=== PATIENT | male | born 1955 | race Caucasian/White ===

== ENCOUNTER 2019-09-04 11:05 | Inpatient (IN) | payer MEDICARE, SELFPAY ==
[2019-09-04 11:06] VITALS: BP 100/68; PULSE 121; RESP 18; TEMP 36.3; O2SAT 96; BMI 32.1
[2019-09-04 11:14] VITALS: O2SAT 96
[2019-09-04] MEDS: ondansetron 2 mg/ML SDV 2 mL 4 MG IVP (11:20)
[2019-09-04] MEDS: sodium chloride 0.9% 1,000 ML 100 ML IV (11:20)
--- NOTE | 2019-09-04 11:20 | ED_ITS ---
Entered by Carla Orozco, acting as scribe for Griffin Shin DO HPI - Abdominal Pain General: Chief Complaint: Abdominal Pain Stated Complaint: n/v/d Time Seen by Provider: 09/04/19 11:20 Source: patient, EMS and RN notes reviewed Mode of arrival: EMS Limitations: no limitations History of Present Illness: HPI narrative: 64 yo male presents to ED with complaints of abdominal pain. He said the pain began at 0300 this morning. He has had nausea, vomiting and diarrhea. He said his abdominal pain is due to his dry heaves. MD elicited complaint: abdominal pain Pertinent past history: none Onset (ago): hour(s) (9) Pain Consistency: constant Location: Diffuse Severity: moderate Quality: aching Radiation: none Migration to: no migration Exacerbating factors: vomiting and movement Relieving factors: nothing Associated Symptoms: Reports diarrhea, nausea and vomiting; Denies chills, dysuria, fever(s), hematuria and syncope Review of Systems Const: Denies: fever, chills, body aches, fatigue, malaise or night sweats Eyes: Denies: change in vision or blurry vision ENMT: Denies: throat pain, oral sores/lesions, dental pain, nasal discharge or nasal congestion Card: Denies: chest pain, palpitations, irregular heart rhythm, edema, syncope, shortness of breath on exertion, shortness of breath when lying down or leg pain with exertion Resp: Denies: shortness of breath, productive cough, non-productive cough or wheezing GI: Reports: nausea, vomiting and diarrhea : Denies: flank pain, difficulty urinating, painful urination, urinary f requency, urinary urgency, urinary incontinence or blood in urine Musc: Denies: neck pain, back pain, extremity pain, extremity swelling, joint pain or joint swelling Skin/Breast: Denies: rash, itching or redness Neuro: Denies: headache, numbness in extremities, weakness in extremities, changes in sensation, lack of coordination, difficulty walking, frequent falls, dizziness, vertigo or confusion Psych: Denies: anxiety, depression, loss of interest, visual hallucinations, auditory hallucinations, suicidal ideation or homicidal ideation Endo: Denies: excessive urination, excessive thirst, tired all the time or cold intolerance Panfilo/Lymph: Denies: easy bruising, easy bleeding, petechiae, enlarged lymph nodes or tender lymph nodes PFSH ED PFSH: Statuses (acute, chronic, etc) shown below reflect problem list status as previously entered and may not be historically accurate Medical History Atrial fibrillation (Acute) Hypertension (Acute) Intestinal malrotation (Acute) Surgical History History of bariatric surgery (Acute) Gastric sleeve ([place]) History of left knee surgery (Acute) History of right hip replacement (Acute) History of ventral hernia repair (Acute) x 2, supraumbilical, second time with mesh Social History Smoking and tobacco status: never smoked Alcohol intake: current Alcohol use comment: I used to drink more but it is now more off than on Counseling given: Yes Household members: spouse Housing: House Physical Exam Const: COMMON NORMALS: no apparent distress GENERAL APPEARANCE: cooperative and comfortable ORIENTATION/CONSCIOUSNESS: Yes awake, Yes oriented to person, Yes oriented to place and Yes oriented to time HENMT: COMMON NORMALS: normocephalic, head/scalp atraumatic, hearing grossly normal bilaterally, external ears normal, EAC's normal, TM's normal bilaterally, nasal mucous membranes and turbinates normal, moist oral mucous membranes and oropharynx normal HEAD & SCALP: normocephalic and atraumatic NOSE: nasal mucous membranes and turbinates normal EXTERNAL EAR: Yes external ears normal EXTERNAL AUDITORY CANAL: EAC's normal TYMPANIC MEMBRANE: TM's normal bilaterally Eye: COMMON NORMALS: PERRL, EOMs intact bilaterally, conjunctivae normal and no scleral icterus CONJUNCTIVA: Yes conjunctivae normal PUPIL: Yes PERRL Neck/C-Spine: COMMON NORMALS: full ROM, no lymphadenopathy, supple and no JVD Lymph: LYMPHATIC: no lymphadenopathy noted and no lymphedema noted Resp: COMMON NORMALS: normal respiratory effort, no retractions, no use of accessory muscles and clear to auscultation bilaterally AUSCULTATION: clear to auscultation bilaterally Cardio: COMMON NORMALS: no JVD, regular rate, regular rhythm and no murmurs RATE: regular rate RHYTHM: regular rhythm GI: COMMON NORMALS: no hepatosplenomegaly AUSCULTATION: Yes hypoactive bowel sounds PALPATION: Yes tender, No guarding and Yes no hepatosplenomegaly PERCUSSION: tympanic to percussion Extremity: COMMON NORMALS: normal to inspection, normal capillary refill, no clubbing, cyanosis or edema, no calf tenderness and no pedal edema Neuro: SENSORIUM/ORIENTATION: Yes oriented to person, Yes oriented to place and Yes oriented to time Skin: COMMON NORMALS: no rashes or lesions noted GENERAL SKIN EXAM: no rashes or lesions noted Course Consultations: Consultation #1: Spoke with Dr Cook regarding patient. Dr. St will see the patient in consultation reviewed CT with him on the phone Time: 14:25 Vital Signs: Vital signs: Vital Signs Temperature 98.0 F 09/05/19 11:44 Pulse Rate 76 09/05/19 11:44 Respiratory Rate 18 09/05/19 11:44 Blood Pressure 134/87 09/05/19 11:44 Pulse Oximetry 97 09/05/19 11:44 MDM - Abdominal Pain Lab Data: Labs: Lab Results 09/04/19 09/04/19 09/04/19 Range/Units 11:25 11:25 11:25 WBC 8.9 (4.0-10.0) 10^3/ uL RBC 4.26 (4.1-5.3) 10^6/u L Hgb 14.9 (11.7-16.6) g/dL Hct 42.0 (42.0-52.0) % MCV 98.6 H (80-94) fL MCH 35.0 H (28.0-34.0) pg MCHC 35.5 (30.0-36.0) g/dL RDW 12.5 (12.1-15.1) % Plt Count 179 (130-400) 10^3/c mm MPV 11.2 H (7.4-10.4) fL Neut % (Auto) 92.0 % Lymph % (Auto) 1.1 % [place] % (Auto) 6.4 % Eos % (Auto) 0.2 % Baso % (Auto) 0.1 % Neut # (Auto) 8.2 H (1.8-7.7) 10^3/u L Lymph # (Auto) 0.1 L (0.8-4.8) 10^3/u L [place] # (Auto) 0.6 (0.2-0.9) 10^3/u L Eos # (Auto) 0.0 (0.0-0.8) 10^3/u L Baso # (Auto) 0.0 (0.0-0.1) 10^3/u L Nucleated RBC % (a uto) 0 % Nucleated RBCs # 0.0 /100WBC PT 14.60 H (10.5-13.3) SECO NDS INR 1.11 (0.8-1.2) Sodium 139 (136-145) mmol/L Potassium 3.7 (3.5-5.1) mmol/L Chloride 95 L (98-107) mmol/L Carbon Dioxide 24 (22-29) mmol/L Anion Gap 23.7 H (5-19) BUN 35 H (8-23) mg/dL Creatinine 1.6 H (0.7-1.2) mg/dL GFR Calculation 43.6 L (90-130) mL/min Glucose 147 H (65-115) mg/dL Lactic Acid (0.5-2.2) mmol/L Calcium 10.3 (8.5-10.5) mg/dL Magnesium 1.2 L (1.7-2.3) mg/dL Total Bilirubin 1.1 (0.15-1.2) mg/dL AST 26 (0-40) U/L ALT 24 (0-41) U/L Alkaline Phosphata se 80 (40-130) IU/L Troponin T Baselin e (0-15) ng/mL Troponin T 120 Min ricky (0-15) ng/mL Delta Troponin T (0-10) ABS# Total Protein 7.2 (6.6-8.7) g/dL Albumin 4.2 (3.5-5.2) g/dL Globulin 3.0 (1.3-4.6) g/dL Lipase 20 (13-60) U/L Influenza Type A A g (Negative) POC Influenza B Ag (Negative) 09/04/19 09/04/19 09/04/19 Range/Units 11:25 11:25 11:25 WBC (4.0-10.0) 10^3/ uL RBC (4.1-5.3) 10^6/u L Hgb (11.7-16.6) g/dL Hct (42.0-52.0) % MCV (80-94) fL MCH (28.0-34.0) pg MCHC (30.0-36.0) g/dL RDW (12.1-15.1) % Plt Count (130-400) 10^3/c mm MPV (7.4-10.4) fL Neut % (Auto) % Lymph % (Auto) % [place] % (Auto) % Eos % (Auto) % Baso % (Auto) % Neut # (Auto) (1.8-7.7) 10^3/u L Lymph # (Auto) (0.8-4.8) 10^3/u L [place] # (Auto) (0.2-0.9) 10^3/u L Eos # (Auto) (0.0-0.8) 10^3/u L Baso # (Auto) (0.0-0.1) 10^3/u L Nucleated RBC % (a uto) % Nucleated RBCs # /100WBC PT (10.5-13.3) SECO NDS INR (0.8-1.2) Sodium (136-145) mmol/L Potassium (3.5-5.1) mmol/L Chloride (98-107) mmol/L Carbon Dioxide (22-29) mmol/L Anion Gap (5-19) BUN (8-23) mg/dL Creatinine (0.7-1.2) mg/dL GFR Calculation (90-130) mL/min Glucose (65-115) mg/dL Lactic Acid 4.5 H* (0.5-2.2) mmol/L Calcium (8.5-10.5) mg/dL Magnesium (1.7-2.3) mg/dL Total Bilirubin (0.15-1.2) mg/dL AST (0-40) U/L ALT (0-41) U/L Alkaline Phosphata se (40-130) IU/L Troponin T Baselin e 16 H (0-15) ng/mL Troponin T 120 Min ricky (0-15) ng/mL Delta Troponin T (0-10) ABS# Total Protein (6.6-8.7) g/dL Albumin (3.5-5.2) g/dL Globulin (1.3-4.6) g/dL Lipase (13-60) U/L Influenza Type A A g Negative (Negative) POC Influenza B Ag Negative (Negative) 09/04/19 Range/Units 13:27 WBC (4.0-10.0) 10^3/ uL RBC (4.1-5.3) 10^6/u L Hgb (11.7-16.6) g/dL Hct (42.0-52.0) % MCV (80-94) fL MCH (28.0-34.0) pg MCHC (30.0-36.0) g/dL RDW (12.1-15.1) % Plt Count (130-400) 10^3/c mm MPV (7.4-10.4) fL Neut % (Auto) % Lymph % (Auto) % [place] % (Auto) % Eos % (Auto) % Baso % (Auto) % Neut # (Auto) (1.8-7.7) 10^3/u L Lymph # (Auto) (0.8-4.8) 10^3/u L [place] # (Auto) (0.2-0.9) 10^3/u L Eos # (Auto) (0.0-0.8) 10^3/u L Baso # (Auto) (0.0-0.1) 10^3/u L Nucleated RBC % (a uto) % Nucleated RBCs # /100WBC PT (10.5-13.3) SECO NDS INR (0.8-1.2) Sodium (136-145) mmol/L Potassium (3.5-5.1) mmol/L Chloride (98-107) mmol/L Carbon Dioxide (22-29) mmol/L Anion Gap (5-19) BUN (8-23) mg/dL Creatinine (0.7-1.2) mg/dL GFR Calculation (90-130) mL/min Glucose (65-115) mg/dL Lactic Acid (0.5-2.2) mmol/L Calcium (8.5-10.5) mg/dL Magnesium (1.7-2.3) mg/dL Total Bilirubin (0.15-1.2) mg/dL AST (0-40) U/L ALT (0-41) U/L Alkaline Phosphata se (40-130) IU/L Troponin T Baselin e (0-15) ng/mL Troponin T 120 Min ricky 15.37 H (0-15) ng/mL Delta Troponin T -0.63 L (0-10) ABS# Total Protein (6.6-8.7) g/dL Albumin (3.5-5.2) g/dL Globulin (1.3-4.6) g/dL Lipase (13-60) U/L Influenza Type A A g (Negative) POC Influenza B Ag (Negative) Imaging Data ^: CXR: Radiologist's impression: [place] [address] XRay Report Signed Patient: Pb Hardy #: [id number] : [id number]#:[id number] Age/Sex: 64 / MADM Date: 09/04/19 Loc: ERRoom/Bed: Attending Dr: Ordering Provider/Ordering MD: Griffin Shin DO Date of Service: 09/04/19 Procedure(s): XR chest 1V portable [id number] Accession Number(s): [id number] Report Number: [id number] WS: [id number] Portable AP upright chest, 09/04/2019 Clinical Data: cough Comparison: None. Findings: No nodules, masses or effusions are seen. The heart is normal. The pulmonary vascularity is not increased. No pneumonia or pneumothorax is seen. The aortic arch and descending aorta are minimally tortuous. There is a monitor lead overlying the right clavicle. XR/XR chest 1V portable [id number] Impression: Atherosclerosis. Dictated By:Thi Man MD Signed By:Thi Manigned Date/Time:09/04/19 1201 DD/ CT Abd/Pel: Radiologist's impression: [place] [address] CT Scan Report Signed Patient: Pb Hardy #: [id number] : [id number]#:[id number] Age/Sex: 64 / MADM Date: 09/04/19 Loc: ERRoom/Bed: Attending Dr: Ordering Provider/Ordering MD: Griffin Shin DO Date of Service: 09/04/19 Procedure(s): CT abdomen pelvis w con* [id number] Accession Number(s): [id number] Report Number: [id number] PROCEDURE INFORMATION: Exam: CT Abdomen And Pelvis With Contrast Exam date and time: 09/04/2019 12:13 PM Age: 64 years old Clinical indication: Nausea and vomiting; Abdominal pain; Generalized; Prior surgery; Surgery type: Gastric sleeve. Right hip. ; Patient HX: Abd pain with n/v/d TECHNIQUE: Imaging protocol: Computed tomography of the abdomen and pelvis with intravenous contrast. Total DLP: 1834.17 mGy-cm Radiation optimization: All CT scans at this facility use at least one of these dose optimization techniques: automated exposure control; mA and/or kV adjustment per patient size (includes targeted exams where dose is matched to clinical indication); or iterative reconstruction. Contrast material: VISI 320; Contrast volume: 95 ml; Contrast route: 20G; COMPARISON: No relevant prior studies available. FINDINGS: Lungs: Mild interstitial prominence and 2 mm nodules in the right middle and left lower lobes. For patients at low risk (minimal or absent history of smoking and of other known risk factors), no routine follow-up is indicated. For patients at high risk (history of smoking or of other known risk factors), consider optional CT Chest at 12 months. [employer] H, Fleischner Society, 2017. Liver: Fatty infiltration of the liver. 7 mm nodular hypodensity in the right hepatic lobe which is too small to accurately characterize. Gallbladder and bile ducts: No cholelithiasis or biliary ductal dilatation. Pancreas: No pancreatic mass or ductal dilatation. Spleen: Spleen upper limits of normal in size. Adrenals: Unremarkable adrenals. Kidneys and ureters: 6 mm left renal cyst. 10 mm nodular hypodense lesion in the upper pole the right kidney which does not fulfill CT criteria for a simple cyst. No hydronephrosis. Stomach and bowel: Pneumatosis in the postoperative stomach. Bowel malrotation, with the cecum in the left upper abdomen. Mild small bowel dilatation without a transition zone. Colonic diverticula without pericolonic inflammation. Appendix: No acute appendicitis. Intraperitoneal space: No free fluid. Vasculature: Normal caliber of abdominal aorta. Lymph nodes: No pathologically enlarged lymph nodes. Bladder: Normal bladder morphology. Reproductive: Punctate prostate calcification. Bones/joints: Right hip arthroplasty with beam hardening artifact. Degenerative change. Soft tissues: Fat containing umbilical hernia. Heterotopic soft tissue calcification posterior right hip. CT/CT abdomen pelvis w con* [id number] IMPRESSION: 1. Pneumatosis in the postoperative stomach. 2. Bowel malrotation without high-grade obstruction. 3. Diverticula, without pericolonic inflammation. 4. Additional findings as described above. COMMENT: Consistent with the [place]'s Incidental Findings Committee white paper (J Am Melva Radiol 2018): Any incidental cystic renal lesion classified in this report as too small to characterize or simple appearing is likely a benign cyst. No follow-up imaging is recommended for these lesions per consensus recommendations based on imaging criteria. Radiation Dose CTDIVOL = (mGy): DLP = 1834.17 (mGy-cm) Dictated By:Haroldo Castro MD Signed By:Haroldo Castro MDSigned Date/Time:09/04/19 1326 DD/ Discharge Plan Discharge Patient Disposition: Admitted As Inpatient Admit Provider: Ferdinand Cook Clinical Impression: Nausea vomiting and diarrhea, Intestinal malrotation, Hypertension, Palpitations Condition: Stable Interventions: ED Discharge Assessment Last Done: 09/04/19 16:25 Discharge Date/Time: 09/04/19 17:36 Coding Level of Care Code ED Paint Department Supervisor for Chg Fwd Exam Problem Focused The documentation recorded by the Pam jean Valerie R, accurately reflects the service I personally performed and the decisions made by Aleida schroeder Curtis L, DO Sep 04, 2019 11:05
--- NOTE | 2019-09-04 11:33 | XR_ITS ---
WS: [id number] Portable AP upright chest, 09/04/2019 Clinical Data: cough Comparison: None. Findings: No nodules, masses or effusions are seen. The heart is normal. The pulmonary vascularity is not increased. No pneumonia or pneumothorax is seen. The aortic arch and descending aorta are minima lly tortuous. There is a monitor lead overlying the right clavicle. XR/XR chest 1V portable [id number] Impression: Atherosclerosis.
--- NOTE | 2019-09-04 11:33 | ECG_ITS ---
Measurements Intervals [place] Rate: 111 P: 48 MD: 146 QRS: 28 QRSD: 94 T: 52 QT: 369 QTc: [address] DEPRESSION [0.05+ mV ST DEPRESSION] No previous ECG available for comparison Electronically Signed On 09-04-2019 16:33:39 DIGITAL CARTOGRAPHER by Dustin Burroughs M.D. [id number]
[2019-09-04 11:35] LABS: Basophils % 0.1 %; Eosinophils % 0.2 %; Hemoglobin 14.9 g/dL (11.7-16.6); Lymphocytes # 0.1 10^3/uL (0.8-4.8); Lymphocytes % 1.1 %; Mean Corpuscular HGB Conc 35.5 g/dL (30.0-36.0); Mean Corpuscular Volume 98.6 fL (80-94); Mean Platelet Volume 11.2 fL (7.4-10.4); Monocytes # 0.6 10^3/uL (0.2-0.9); Monocytes % 6.4 %; Neutrophils # 8.2 10^3/uL (1.8-7.7); Nucleated Red Blood Cells % 0 %; Platelet Count 179 10^3/cmm (130-400); Red Blood Count 4.26 10^6/uL (4.1-5.3); Red Cell Distribution Width 12.5 % (12.1-15.1); White Blood Count 8.9 10^3/uL (4.0-10.0)
[2019-09-04] MEDS: sodium chloride 0.9% 1,000 ML 999 ML IV ×2 (11:37→13:55)
[2019-09-04 11:41] LABS: INR 1.11 (0.8-1.2)
[2019-09-04 11:46] LABS: Alanine Aminotransferase 24 U/L (0-41); Albumin Level 4.2 g/dL (3.5-5.2); Alkaline Phosphatase 80 IU/L (40-130); Anion Gap 23.7 (5-19); Aspartate Amino Transferase 26 U/L (0-40); Blood Urea Nitrogen 35 mg/dL (8-23); Calcium 10.3 mg/dL (8.5-10.5); Carbon Dioxide 24 mmol/L (22-29); Chloride 95 mmol/L (98-107); Glomerular Filtration Rate 43.6 mL/min (90-130); Glucose 147 mg/dL (65-115); Lipase 20 U/L (13-60); Magnesium 1.2 mg/dL (1.7-2.3); Potassium 3.7 mmol/L (3.5-5.1); Sodium 139 mmol/L (136-145); Total Bilirubin 1.1 mg/dL (0.15-1.2); Total Protein 7.2 g/dL (6.6-8.7)
[2019-09-04 11:51] LABS: Influenza A by IFA Negative (Negative); Influenza B by IFA Negative (Negative)
[2019-09-04 11:56] LABS: Lactic Sepsis W/Reflex 4.5 mmol/L (0.5-2.2)
[2019-09-04 12:00] LABS: Troponin(5th) Baseline 16 ng/mL (0-15)
--- NOTE | 2019-09-04 12:10 | CTR_ITS ---
PROCEDURE INFORMATION: Exam: CT Abdomen And Pelvis With Contrast Exam date and time: 09/04/2019 12:13 PM Age: 64 years old Clinical indication: Nausea and vomiting; Abdominal pain; Generalized; Prior surgery; Surgery type: Gastric sleeve. Right hip. ; Patient HX: Abd pain with n/v/d TECHNIQUE: Imaging protocol: Computed tomography of the abdomen and pelvis with intravenous contrast. Total DLP: 1834.17 mGy-cm Radiation optimization: All CT scans at this facility use at least one of these dose optimization techniques: automated exposure control; mA and/or kV adjustment per patient size (includes targeted exams where dose is matched to clinical indication); or iterative reconstruction. Contrast material: VISI 320; Contrast volume: 95 ml; Contrast route: 20G; COMPARISON: No relevant prior studies available. FINDINGS: Lungs: Mild interstitial prominence and 2 mm nodules in the right middle and left lower lobes. For patients at low risk (minimal or absent history of smoking and of other known risk factors), no routine follow-up is indicated. For patients at high risk (history of smoking or of other known risk factors), consider optional CT Chest at 12 months. Don Grace, Fleischner Society, 2017. Liver: Fatty infiltration of the liver. 7 mm nodular hypodensity in the right hepatic lobe which is too small to accurately characterize. Gallbladder and bile ducts: No cholelithiasis or biliary ductal dilatation. Pancreas: No pancreatic mass or ductal dilatation. Spleen: Spleen upper limits of normal in size. Adrenals: Unremarkable adrenals. Kidneys and ureters: 6 mm left renal cyst. 10 mm nodular hypodense lesion in the upper pole the right kidney which does not fulfill CT criteria for a simple cyst. No hydronephrosis. Stomach and bowel: Pneumatosis in the postoperative stomach. Bowel malrotation, with the cecum in the left upper abdomen. Mild small bowel dilatation without a transition zone. Colonic diverticula without pericolonic inflammation. Appendix: No acute appendicitis. Intraperitoneal space: No free fluid. Vasculature: Normal caliber of abdominal aorta. Lymph nodes: No pathologically enlarged lymph nodes. Bladder: Normal bladder morphology. Reproductive: Punctate prostate calcification. Bones/joints: Right hip arthroplasty with beam hardening artifact. Degenerative change. Soft tissues: Fat containing umbilical hernia. Heterotopic soft tissue calcification posterior right hip. CT/CT abdomen pelvis w con* [id number] IMPRESSION: 1. Pneumatosis in the postoperative stomach. 2. Bowel malrotation without high-grade obstruction. 3. Diverticula, without pericolonic inflammation. 4. Additional findings as described above. COMMENT: Consistent with the [employer]'s Incidental Findings Committee white paper (J Am Melva Radiol 2018): Any incidental cystic renal lesion classified in this report as too small to characterize or simple appearing is likely a benign cyst. No follow-up imaging is recommended for these lesions per consensus recommendations based on imaging criteria. Radiation Dose CTDIVOL = (mGy): DLP = 1834.17 (mGy-cm)
[2019-09-04] MEDS: iodixanol 320 mg/mL 100mL Btl IV (12:24)
[2019-09-04 13:16] LABS: Reflex Lactate Order REFLEX LACTIC ORDERD
--- NOTE | 2019-09-04 13:33 | ECG_ITS ---
Measurements Intervals [place] Rate: 100 P: 35 GA: 135 QRS: 26 QRSD: 93 T: 42 QT: 377 QTc: [address] DEPRESSION [0.05+ mV ST DEPRESSION] INTERPRETATION BASED ON A DEFAULT AGE OF 40 YEARS No previous ECG available for comparison Electronically Signed On 09-04-2019 16:39:28 EXTRUDING DEPARTMENT SUPERVISOR by Dustin Burroughs M.D. [id number] f
[2019-09-04 13:51] LABS: Troponin 5 2HR 15.37 ng/mL (0-15); Troponin 5 2HR Delta -0.63 ABS# (0-10)
[2019-09-04 16:25] VITALS: BP 105/78; PULSE 95; RESP 20; O2SAT 96
--- NOTE | 2019-09-04 16:58 | PM.CONSULT ---
Providers/Reason For Consult Consulting Physican/Specialty*: General Surgery Allan St MD Reason for Consult*: Nausea, vomiting and diarrhea/rule out early bowel obstruction. Attending Physician: Ferdinand Cook MD Primary Care Provider: Mallika Ceja MD History of Present Illness History of Present Illness Ethan Hardy is a 64 year old male who says he was in his usual state of health until around 2 AM last night. He awoke and was very sick. He had multiple episodes of vomiting and diarrhea. He denies any hematochezia or hematemesis. He says he felt more clammy then obviously feverish or chilled. He said by 10 AM he said he was sick enough that he thought he needed some help. He came to the emergency room and a CAT scan showed a few mildly dilated loops of small bowel but no obvious transition point. I was asked to see him in consultation for a possible early bowel obstruction. The patient says he just had another loose bowel movement right before I came to see him. He says he actually is starting to feel quite a bit better now than he was at home. He still is glad that somebody has offered to watch him at least overnight. Review of Systems General: Reports: 10 or more systems reviewed and unremarkable except in HPI and below GI: Reports: nausea, vomiting and diarrhea; Denies: vomiting blood or blood in stool Meds/Allergies Home Medications and Allergies Home Medications Medication Instructions Recorded Confirmed Type hydrochlorothiazide 25 mg PO DAILY 09/04/19 09/04/19 History losartan 100 mg PO DAILY 09/04/19 09/04/19 History metoprolol succinate 50 mg PO DAILY 09/04/19 09/04/19 History Allergies Allergy/AdvReac Type Severity Reaction Status Date / Time amlodipine AdvReac Mild Lower Verified 09/04/19 17:06 extremity edema Current Medications Current Medications Generic Name Dose Route Start Last Admin Trade Name Freq PRN Reason Stop Dose Admin Sodium Chloride 1,000 mls @ 100 mls/hr 09/04/19 11:15 09/04/19 11:20 Sodium Chloride 0.9% IV 100 mls/hr .Q10H ARNAV Administration PFSH Acute PFSH: Statuses (acute, chronic, etc) shown below reflect problem list status as previously entered and may not be historically accurate Medical History (Updated 09/04/19 @ 17:[address] MD) Atrial fibrillation (Acute) Hypertension (Acute) Intestinal malrotation (Acute) Surgical History (Updated 09/04/19 @ 17:[address] MD) History of bariatric surgery (Acute) Gastric sleeve ([place]) History of left knee surgery (Acute) History of right hip replacement (Acute) History of ventral hernia repair (Acute) x 2, supraumbilical, second time with mesh Social History (Updated 09/04/19 @ 17:[address] MD) Smoking and tobacco status: never smoked Alcohol intake: current Alcohol use comment: I used to drink more but it is now more off than on Vitals/I&O/Wt Last Vital Signs Temp 97.3 F L 09/04/19 11:06 Pulse 95 09/04/19 16:25 Resp 20 H 09/04/19 16:25 BP 105/78 09/04/19 16:25 Pulse Ox 96 09/04/19 16:25 Weight last 48 hrs Weight 230 lb Physical Exam Narrative: EXAM NARRATIVE: The patient was encountered in the emergency room. He does not appear to be in any acute distress. The pupils are equal. No carotid bruits are heard. The lungs are clear anteriorly. The heart seems regular. The abdomen is moderately obese but is reasonably soft. He has a small vertical scar above the umbilicus with an umbilical hernia which is nontender. Bowel sounds are somewhat hyperactive. He does not seem to have any focal tenderness anywhere to my exam. The extremities reveal no edema. Neurologically the patient is grossly intact. Data Imaging^: CT Abd/Pel: Radiologist's impression: IMPRESSION: 1. Pneumatosis in the postoperative stomach. 2. Bowel malrotation without high-grade obstruction. 3. Diverticula, without pericolonic inflammation. A&P Assessment and plan (1) Nausea vomiting and diarrhea: The patient clearly is not obstructed despite having some hyperactive bowel sounds. His exam at present is not terribly concerning to me. I have to wonder if he is just dealing with some type of viral syndrome. I will be happy to continue following him while he is hospitalized. Status: Acute Code(s): R11.2 - Nausea with vomiting, unspecified; R19.7 - Diarrhea, unspecified Consult Attestations Medical Necessity Statement: See admitting service's notation. Coding Level of Care Code Acute Senior Accounting Manager for Chg Fwd Diagnoses Nausea vomiting and diarrhea R11.2; R19.7
--- NOTE | 2019-09-04 17:15 | P.HP_ITS ---
Providers/Chief Complaint Admitting Physician: Ferdinand Cook MD Primary Care Provider: Mallika Ceja MD Chief Complaint: n/v/d History of Present Illness Ethan Hardy is a 64 year old male past medical history of gastric sleeve surgery, hernia repair surgery, hypertension, palpitations under work-up for possible A. lise presents to the ER today complaining of multiple episodes of diarrhea since last night 2 AM along with nausea but no vomiting. Patient states when he went to the bed last night he was feeling absolutely fine but got up at 2 AM because of diarrhea. Bowel movements are usually watery not foul-smelling, not bloodstained not black in color or tarry. Patient complaining of mild abdominal pain 2/10, generalized all over the abdomen, colicky in nature. Denies of having any recent travels states his sister was having similar symptoms last week. Patient denies of having any loss of consciousness, fall but does complain of mild dizziness. Review of Systems Const: Reports: diaphoresis; Denies: fever, chills, body aches, change in appetite, malaise, night sweats, change in sleep pattern, daytime sleepiness or snoring Eyes: Denies: change in vision, blurry vision, photophobia, eye discomfort or eye discharge ENMT: Denies: throat pain, enlarged tonsils, hoarseness, mouth pain, oral sores/lesions, dry mouth, tinnitus, nasal congestion or post nasal drip Card: Denies: chest pain, palpitations, irregular heart rhythm, edema, swelling of feet/ankles, lightheadedness, syncope, pre-syncope, shortness of breath on exertion, shortness of breath when lying down, leg pain with exertion or bluish discoloration of hands/feet Resp: Denies: shortness of breath, productive cough, non-productive cough, wheezing, stridor, pain on inspiration, change in phlegm color, coughing up blood or chest congestion GI: Reports: abdominal pain, nausea, diarrhea and change in bowel habits; Denies: vomiting, vomiting blood, coffee grounds in vomit, difficulty swallowing, heartburn/indigestion, constipation, bloating, cramping, painful bowel movements, blood in stool or black tarry stool : Denies: flank pain, difficulty urinating, painful urination, urinary frequency, urinary urgency, urinary hesitancy, urinary dribbling, difficulty starting urination, change in urine stream, nighttime urination or blood in urine Musc: Denies: neck pain, back pain, extremity pain, joint pain, joint swelling, redness, joint stiffness or limited range of motion Neuro: Denies: headache, numbness in extremities, weakness in extremities, changes in sensation, lack of coordination, difficulty walking, frequent falls, dizziness, vertigo, confusion, slurred speech, difficulty communicating thoughts or seizure-like activity Psych: Denies: anxiety, depression, mood swings, panic attacks, hopelessness or irritability Endo: Denies: excessive urination, excessive thirst, tired all the time, cold intolerance, excessive sweating, flushing or heat intolerance Panfilo/Lymph: Denies: easy bruising or easy bleeding All/Imm: Denies: tongue swelling, facial swelling or acute wheezing Medications/Allergies Home Medications Medication Instructions Recorded Confirmed Last Taken Type hydrochlorothiazide 25 mg PO DAILY 09/04/19 09/04/19 09/04/19 History losartan 100 mg PO DAILY 09/04/19 09/04/19 09/04/19 History metoprolol succinate 50 mg PO DAILY 09/04/19 09/04/19 09/04/19 History Allergies Allergy/AdvReac Type Severity Reaction Status Date / Time amlodipine AdvReac Mild Lower Verified 09/04/19 17:06 extremity edema PFSH Acute PFSH: Statuses (acute, chronic, etc) shown below reflect problem list status as previously entered and may not be historically accurate Medical History (Updated 09/04/19 @ 17:25 by Ferdinand Cook MD) Atrial fibrillation (Acute) Hypertension (Acute) Intestinal malrotation (Acute) Surgical History (Updated 09/04/19 @ 17:[address] MD) History of bariatric surgery (Acute) Gastric sleeve ([place]) History of left knee surgery (Acute) History of right hip replacement (Acute) History of ventral hernia repair (Acute) x 2, supraumbilical, second time with mesh Social History (Updated 09/04/19 @ 17:24 by Ferdinand Cook MD) Smoking and tobacco status: never smoked Alcohol intake: current Alcohol use comment: I used to drink more but it is now more off than on Counseling given: Yes Household members: spouse Housing: House Vitals/I&O/Wt Last Vital Signs Temp 97.3 F L 09/04/19 11:06 Pulse 95 09/04/19 16:25 Resp 20 H 09/04/19 16:25 BP 105/78 09/04/19 16:25 Pulse Ox 96 09/04/19 16:25 Weight last 48 hrs Weight 104.326 kg Physical Exam Narrative: EXAM NARRATIVE: General: No acute distress, AO x3 HEENT: PERRLA, pupils bilaterally equal and reactive Chest: Normal vesicular breath sounds, no added sounds, equal good air entry bilaterally CVS: S1-S2 regular, no murmurs, no tachycardia, no gallops, no rubs Abdomen: Soft, nontender, no organomegaly, bowel sounds present Neuro: No focal deficits, no facial deformity, AO x3, power 5/5 in all limbs Data : 09/04/19 11:25 09/04/19 11:25 A&P Assessment and plan (1) Intestinal malrotation: Status: Acute Code(s): Q43.3 - Congenital malformations of intestinal fixation (2) Hypertension: Status: Acute Code(s): I10 - Essential (primary) hypertension (3) Nausea vomiting and diarrhea: Status: Acute Code(s): R11.2 - Nausea with vomiting, unspecified; R19.7 - Diarrhea, unspecified (4) Palpitations: Status: Acute Code(s): R00.2 - Palpitations Additional A&P Information Intestinal malrotation/diarrhea: Most likely due to intestinal malrotation versus gastroenteritis. Keep n.p.o. because of intestinal malrotation. Can advance to full liquid tomorrow morning and soft diet if tolerates the liquid diet well. General surgery consultation. We will send stool studies for C. difficile, stool culture, enteric panel, occult blood. Continue IV hydration with normal saline at 150 cc/h. High anion gap acidosis: Most likely due to lactic acidosis: At presentation 4.5. Repeat lactate awaited. Continue with IV hydration. We will repeat lactate tomorrow morning. CT abdomen with contrast negative for bowel ischemia. Abdominal examination not concerning for peritonitis. Hypertension: Continue with home dose of losartan. We will monitor blood pressures. Hold off on hydrochlorothiazide given that patient needs IV hydration for now. Palpitations: Patient states he has been worked up for palpitations. At present telemetry shows sinus rhythm with frequent APCs. TSH tomorrow morning. Continue with home dose of metoprolol. Alcohol abuse: Counseled patient regarding alcohol cessation. He states he is planning to work on it. CIWA score 4 at present. Ativan as per CIWA protocol. Alcohol levels. Full code N.p.o. for now. Full liquid diet tomorrow morning. ALMA score low so we will hold off on any therapeutic DVT prophylaxis for now. Attestations Medical Necessity Statement*: Admission for most likely less than 2 midnights for diarrhea. Time Spent in Patient Care: Greater than 35 minutes Coding Level of Care Code Acute Client Service Administrator for [facility] Fwd Diagnoses Intestinal malrotation Q43.3 Hypertension I10 Nausea vomiting and diarrhea R11.2; R19.7 Palpitations R00.2
--- NOTE | 2019-09-04 17:33 | ECG_ITS ---
Measurements Intervals [place] Rate: 86 P: 28 AR: 120 QRS: 26 QRSD: 101 T: 47 QT: 405 QTc: 485 SINUS RHYTHM WITH OCCASIONAL VENTRICULAR PREMATURE COMPLEXES Compared to ECG 09/04/2019 14:01:42 Ventricular premature complex(es) now present Sinus tachycardia no longer present ST (T wave) deviation no longer present Electronically Signed On 09-05-2019 22:17:58 [employer] BUSINESS OBJECTS CONSULTANT by Nicholas Frankel M.D. [email or web address]
[2019-09-04 17:48] LABS: Troponin 5 6HR 16.68 ng/L (0-15); Troponin 5 6HR Delta 0.68 ng/L (0-12)
[2019-09-04 17:49] LABS: Lactic Acid level (Lactate) 3.6 mmol/L (0.5-2.2)
[2019-09-04 17:56] LABS: Thyroid Stimulating Hormone 0.51 uIU/mL (0.27-4.20)
[2019-09-04 18:02] VITALS: O2SAT 98
[2019-09-04] MEDS: sodium chloride 0.9% 1,000 ML 150 ML IV (18:04)
[2019-09-04 18:07] LABS: Alcohol Level < 10 mg/dL (0-10)
[2019-09-04 20:00] VITALS: BP 152/88; PULSE 82; RESP 18; TEMP 37.2; O2SAT 99
[2019-09-04 22:00] VITALS: BP 123/78; PULSE 78; RESP 20; TEMP 36.4; O2SAT 96
[2019-09-05] VITALS (7 sets, daily range): BP systolic 109–151; BP diastolic 73–99; PULSE 71–82; RESP 15–20; TEMP 36.4–36.9; O2SAT 95–100
[2019-09-05] MEDS: sodium chloride 0.9% 1,000 ML 150 ML IV ×2 (01:20→09:05)
[2019-09-05 06:20] LABS: Basophils % 0.2 %; Eosinophils # 0.1 10^3/uL (0.0-0.8); Eosinophils % 2.1 %; Hematocrit 37.7 % (42.0-52.0); Lymphocytes # 0.4 10^3/uL (0.8-4.8); Lymphocytes % 9.4 %; Mean Corpuscular HGB Conc 34.5 g/dL (30.0-36.0); Mean Corpuscular Hemoglobin 36.1 pg (28.0-34.0); Mean Corpuscular Volume 104.7 fL (80-94); Mean Platelet Volume 11.7 fL (7.4-10.4); Monocytes # 0.4 10^3/uL (0.2-0.9); Monocytes % 10.4 %; Neutrophils # 3.3 10^3/uL (1.8-7.7); Neutrophils % 77.7 %; Nucleated Red Blood Cells % 0 %; Platelet Count 142 10^3/cmm (130-400); Red Cell Distribution Width 12.7 % (12.1-15.1); White Blood Count 4.2 10^3/uL (4.0-10.0)
[2019-09-05 06:24] LABS: Alanine Aminotransferase 20 U/L (0-41); Albumin Level 3.3 g/dL (3.5-5.2); Alkaline Phosphatase 51 IU/L (40-130); Aspartate Amino Transferase 27 U/L (0-40); Blood Urea Nitrogen 25 mg/dL (8-23); Calcium 8.6 mg/dL (8.5-10.5); Carbon Dioxide 26 mmol/L (22-29); Chloride 101 mmol/L (98-107); Globulin 2.5 g/dL (1.3-4.6); Glomerular Filtration Rate 60.8 mL/min (90-130); Glucose 110 mg/dL (65-115); Sodium 141 mmol/L (136-145); Total Bilirubin 0.7 mg/dL (0.15-1.2); Total Protein 5.8 g/dL (6.6-8.7)
[2019-09-05 06:25] LABS: Lactic Sepsis W/Reflex 1.2 mmol/L (0.5-2.2)
--- NOTE | 2019-09-05 08:12 | P.PN_ITS ---
Subjective Subjective: Interval history: The patient has been found to have C. difficile in his stool. He denies any recent antibiotic use. He is now on vancomycin. He says he is feeling okay but he still having some loose stool every couple hours or so. He would like to take a shower. Vitals/I&O/Wt Last Vital Signs Temp 98.1 F 09/05/19 07:58 Pulse 77 09/05/19 07:58 Resp 18 09/05/19 07:58 BP 151/99 09/05/19 07:58 Pulse Ox 96 09/05/19 07:58 09/04/19 09/05/19 09/05/19 22:59 06:59 14:59 Intake Total 1000 / 1000 Output Total 500 / 500 Balance 500 / 500 Weight last 48 hrs Weight 230 lb Physical Exam Narrative: EXAM NARRATIVE: Abdomen is nonacute. Data : 09/05/19 05:42 09/05/19 05:42 Micro: Microbiology 09/04/19 20:23 Stool Lactoferrin - Final Stool C.difficile Toxin B Gene (PCR) - Final Occult Blood (FIT) - Final A&P Assessment and plan (1) Clostridium difficile diarrhea: The patient is on oral vancomycin. Potassium is being replaced. I will be available if needed. Please call if I can be of further help. Status: Acute Code(s): A04.72 - Enterocolitis due to Clostridium difficile, not specified as recurrent Attestations Medical Necessity Statement*: See admitting service's notation. Coding Level of Care Code Acute Conditioning Machine Operator for [facility] [place] Diagnoses Clostridium difficile diarrhea A04.72
[2019-09-05] MEDS: potassium chloride premix 40 MEQ/100 ML PREMIX 25 MEQ IV (09:05)
[2019-09-05] MEDS: thiamine 100 mg Tablet PO (09:06)
[2019-09-05] MEDS: losartan 50 mg Tablet 100 MG PO (09:06)
[2019-09-05] MEDS: multivitamin therapeutic Tablet 1 TAB PO (09:06)
[2019-09-05] MEDS: folic acid 1 mg Tablet PO (09:07)
[2019-09-05 10:56] LABS: Amphetamines Screen Urine Negative (Negative); Barbiturates Screen Urine Negative (Negative); Benzodiazepines Screen Urine Negative (Negative); Cocaine Screen Urine Negative (Negative); Opiate Screen Urine Negative (Negative); PCP Screen Urine Negative (Negative); THC Screen Urine Negative (Negative)
--- NOTE | 2019-09-05 12:29 | PC.CHAP ---
Pastoral Care Encounter/Spiritual Assessment Type of Contact [] Declined drier attendant visit [] Patient/Family/Request visit [] Outpatient visit [] Follow-up visit [] Physician referral [] Code/Alert [] Routine visit [] Staff referral [] Actively dying [] Patient sleeping [] Family support [] [] Out of room [] Palliative care [] [] Receiving care in room [] Pre-surgical visit [] Trauma [] Long length of stay [] ICU visit [x] Other: Patient in isolation: no visit Relational/Emotional Strength [] Patient feels connected with others/family/visitors/staff [] Distress [] Loneliness/isolation [] Abandonment Spirituality of Patient [] Person of Michelle [] Attends Hinduism of their Michelle [] Believes in Prayer [] Reads Bible or Latter-Day materials [] There are Spiritual issues to be addressed Dietary Supervisor Interventions [] Prayer [] Active listening [] Non-anxious presence [] Spiritual/emotional support [] Crisis/trauma care [] Spiritual counseling [] Bereavement support [] Provided bereavement packet [] Provided Bible/devotional materials [] Provided toy/stuffed animal, coloring book to patient or family member [] Provided Communion [] Anointing/[place] [] Salvation [] Completed spiritual assessment [] Other: Impact on Illness or Injury [] Angry [] Fearful [] Anxious [] Often cries [] Exhaustion [] Unable to work [] Unable to attend episcopal [] Unable to walk/stand [] Unable to read [] Unable to drive [] Unable to eat/drink [] Unable to sleep [] Unable to be with family [] Patient intubated [] Other: Summary Patient is in isolation so no drier attendant visit can be conducted. Dietary Supervisor Tati Torres Time spent with patient 2 minutes for paperwork
--- NOTE | 2019-09-05 17:33 | PM.PN ---
Subjective Subjective: Interval history: No acute events overnight. BM positive for Cdiff and started on PO vanc States feeling a lot better now. Denies any SOB, N/V, headache, states abd pain is better. Amount and number of BMs have decreased as well but still watery Vitals/I&O/Wt Last Vital Signs Temp 97.7 F 09/05/19 16:00 Pulse 76 09/05/19 16:00 Resp 18 09/05/19 16:00 BP 128/86 09/05/19 16:00 Pulse Ox 95 09/05/19 16:00 09/05/19 09/05/19 09/05/19 06:59 14:59 22:59 Intake Total 1999 Balance 1999 Weight last 48 hrs Weight 104.326 kg Physical Exam Narrative: EXAM NARRATIVE: General: No acute distress, AO x3 HEENT: PERRLA, pupils bilaterally equal and reactive Chest: Normal vesicular breath sounds, no added sounds, equal good air entry bilaterally CVS: S1-S2 regular, no murmurs, no tachycardia, no gallops, no rubs Abdomen: Soft, nontender, no organomegaly, bowel sounds present Neuro: No focal deficits, no facial deformity, AO x3, power 5/5 in all limbs Data : 09/05/19 05:42 09/05/19 05:42 Micro: Microbiology 09/04/19 20:23 Stool Lactoferrin - Final Stool Enteric Pathogens (PCR) - Final C.difficile Toxin B Gene (PCR) - Final Occult Blood (FIT) - Final A&P Assessment and plan (1) Intestinal malrotation: Status: Acute Code(s): Q43.3 - Congenital malformations of intestinal fixation (2) Hypertension: Status: Acute Code(s): I10 - Essential (primary) hypertension (3) Nausea vomiting and diarrhea: Status: Acute Code(s): R11.2 - Nausea with vomiting, unspecified; R19.7 - Diarrhea, unspecified (4) Palpitations: Status: Acute Code(s): R00.2 - Palpitations Additional A&P Information C.diff colitis: Mild C/w PO vanc at 125mh Q6h Can plan for discharge once number of BM decreased or well formed. Stool studies negative for other pathogens. Positive for occult blood most likely because of colitis. We will continue to monitor hemoglobin. Continue with IV hydration with normal saline at 75 cc/h. We will start patient on diet with GI soft today and see how he tolerates can advance and if toleration from tomorrow morning. Hypertension: Continue with home dose of losartan. BP well controlled. Hold off on hydrochlorothiazide given that patient needs IV hydration for now. Palpitations: Patient states he has been worked up for palpitations. At present telemetry shows sinus rhythm with frequent APCs. Continue with home dose of metoprolol. Alcohol abuse: Counseled patient regarding alcohol cessation. He states he is planning to work on it. CIWA score 4 at present. Ativan as per CIWA protocol. Has not required any Ativan till now Full code GI soft diet ALMA score low so we will hold off on any therapeutic DVT prophylaxis for now. Attestations Medical Necessity Statement*: we will change admission to inpatient for treatment and work-up of C. difficile colitis Time Spent in Patient Care: 16 - 35 minutes Coding Level of Care Code Acute Package [employer] Drying Machine Operator for [facility] [place] Diagnoses Intestinal malrotation Q43.3 Hypertension I10 Nausea vomiting and diarrhea R11.2; R19.7 Palpitations R00.2
[2019-09-06] VITALS: BP 130/71; PULSE 85; RESP 18; TEMP 36.6; O2SAT 100
[2019-09-06 02:38] LABS: Estmated Average Glucose 94; Hemoglobin A1C 4.9 % (4.0-6.0)
[2019-09-06 03:46] VITALS: BP 123/84; PULSE 71; RESP 19; TEMP 36.6; O2SAT 96
[2019-09-06] MEDS: metoprolol succinate ER (24 HR) 50 mg Tablet PO (05:18)
[2019-09-06 06:13] LABS: Basophils % 0.3 %; Eosinophils # 0.1 10^3/uL (0.0-0.8); Eosinophils % 3.3 %; Hematocrit 35.2 % (42.0-52.0); Lymphocytes # 0.6 10^3/uL (0.8-4.8); Lymphocytes % 17.1 %; Mean Corpuscular HGB Conc 34.1 g/dL (30.0-36.0); Mean Corpuscular Hemoglobin 34.6 pg (28.0-34.0); Mean Corpuscular Volume 101.4 fL (80-94); Mean Platelet Volume 11.8 fL (7.4-10.4); Monocytes # 0.7 10^3/uL (0.2-0.9); Neutrophils # 2.2 10^3/uL (1.8-7.7); Nucleated Red Blood Cells % 0 %; Platelet Count 140 10^3/cmm (130-400); Red Blood Count 3.47 10^6/uL (4.1-5.3); Red Cell Distribution Width 12.7 % (12.1-15.1); White Blood Count 3.6 10^3/uL (4.0-10.0)
[2019-09-06 06:39] LABS: Alanine Aminotransferase 32 U/L (0-41); Albumin Level 3.4 g/dL (3.5-5.2); Alkaline Phosphatase 51 IU/L (40-130); Anion Gap 14.7 (5-19); Aspartate Amino Transferase 46 U/L (0-40); Blood Urea Nitrogen 17 mg/dL (8-23); Calcium 8.6 mg/dL (8.5-10.5); Carbon Dioxide 27 mmol/L (22-29); Chloride 105 mmol/L (98-107); Creatinine Clr Calc Pharmacy 84.7072; Globulin 2.5 g/dL (1.3-4.6); Glomerular Filtration Rate 67.2 mL/min (90-130); Glucose 98 mg/dL (65-115); Potassium 3.7 mmol/L (3.5-5.1); Sodium 143 mmol/L (136-145); Total Bilirubin 0.4 mg/dL (0.15-1.2); Total Protein 5.9 g/dL (6.6-8.7)
[2019-09-06 08:00] VITALS: BP 142/96; PULSE 75; RESP 18; TEMP 36.6; O2SAT 99
[2019-09-06] MEDS: thiamine 100 mg Tablet PO (08:28)
[2019-09-06] MEDS: multivitamin therapeutic Tablet 1 TAB PO (08:29)
[2019-09-06] MEDS: losartan 50 mg Tablet 100 MG PO (08:29)
[2019-09-06] MEDS: folic acid 1 mg Tablet PO (08:30)
[2019-09-06 12:00] VITALS: BP 135/90; PULSE 65; RESP 18; TEMP 36.8; O2SAT 99
--- NOTE | 2019-09-06 13:21 | PM.DCS ---
Discharge Providers Date of Admission: 09/04/19 16:20 Date of Discharge: Date of Discharge: September 06, 2019 Attending Provider at Admission: Ferdinand Cook MD Attending Provider at Discharge: Ferdinand Cook MD Primary Care Provider: Mallika Ceja MD Diagnoses at Discharge Discharge Diagnosis (1) Intestinal malrotation: Status: Acute (2) Hypertension: Status: Acute (3) Nausea vomiting and diarrhea: Status: Acute (4) Palpitations: Status: Acute Reason for Visit Reason for Visit: Reason For Visit: n/v/d Hospital Course Discharge Summary: Ethan Hardy is a 64 year old male past medical history of gastric sleeve surgery, hernia repair surgery, hypertension, palpitations under work-up for possible A. fib presents to the ER on September 04, 2019 complaining of multiple episodes of diarrhea since last night 2 AM along with nausea but no vomiting. Patient was admitted to the hospital for IV hydration and stool samples were sent for studies to rule out any infectious cause such as C. difficile or bacterial antigens. His stool studies were positive for C. difficile so he was started on oral vancomycin. Patient responded remarkably to the treatment and has diarrhea resolved and his hospital stay was unremarkable. Patient is being discharged in hemodynamically stable condition on oral vancomycin course for 14 days. Physical Exam Narrative: EXAM NARRATIVE: General: No acute distress, AO x3 HEENT: PERRLA, pupils bilaterally equal and reactive Chest: Normal vesicular breath sounds, no added sounds, equal good air entry bilaterally CVS: S1-S2 regular, no murmurs, no tachycardia, no gallops, no rubs Abdomen: Soft, nontender, no organomegaly, bowel sounds present Neuro: No focal deficits, no facial deformity, AO x3, power 5/5 in all limbs Discharge Data Data Completed and Pending: Completed Studies During Hospitalization Category Date Time Status CT abdomen pelvis w con* [id number] Stat Cat Scan 09/04/19 12:10 Completed XR chest 1V buffy ble [id number] Stat Exams 09/04/19 11:33 Completed Pending at discharge Category Date Time Status OVA and Parasites , Conc and PE Rout ine Lab 09/04/19 20:23 Received Labs from last 24 hours 09/06/19 09/06/19 09/05/19 05:48 05:48 05:42 WBC 3.6 L RBC 3.47 L Hgb 12.0 Hct 35.2 L MCV 101.4 H MCH 34.6 H MCHC 34.1 RDW 12.7 Plt Count 140 MPV 11.8 H Neut % (Auto) 60.0 Lymph % (Auto) 17.1 [place] % (Auto) 19.0 Eos % (Auto) 3.3 Baso % (Auto) 0.3 Neut # (Auto) 2.2 Lymph # (Auto) 0.6 L [place] # (Auto) 0.7 Eos # (Auto) 0.1 Baso # (Auto) 0.0 Nucleated RBC % (a uto) 0 Nucleated RBCs # 0.0 Sodium 143 Potassium 3.7 Chloride 105 Carbon Dioxide 27 Anion Gap 14.7 BUN 17 Creatinine 1.1 GFR Calculation 67.2 L Glucose 98 Estimat Average Gl ucose 94 Hemoglobin A1c 4.9 Calcium 8.6 Total Bilirubin 0.4 AST 46 H ALT 32 Alkaline Phosphata se 51 Total Protein 5.9 L Albumin 3.4 L Globulin 2.5 Vitals: Last Vital Signs Temp 98.2 F 09/06/19 12:00 Pulse 65 09/06/19 12:00 Resp 18 09/06/19 12:00 BP 135/90 09/06/19 12:00 Pulse Ox 99 09/06/19 12:00 Discharge Plan Discharge Condition: Stable Prescriptions: New Vancocin 125 mg capsule 125 mg PO QID 14 Days Qty: 56 RF: 0 Continued hydrochlorothiazide 25 mg Tablet 25 mg PO DAILY RF: 0 losartan 100 mg Tablet 100 mg PO DAILY RF: 0 metoprolol succinate 50 mg Capsule,Sprinkle,Er 24hr 50 mg PO DAILY RF: 0 Discharge Orders: Discharge Order (Routine); Ordered 09/06/19 Ordered By: Ferdinand Cook Referrals: Mallika Ceja MD [Primary Care Provider] - 4-7 days (Please contact Dr. Ceja office on Sunday to schedule an appointment to be seen within the next 7 days. ) Discharge Diet: Advance as tolerated and GI Soft Discharge Activity: Resume usual activity Patient Instructions: Vancomycin (By mouth), Hypertension, Acute Nausea and Vomiting (DC) Discharge Date/Time: 09/06/19 15:29 Discharge Attestations Time Spent in Discharge Care*: greater than 30 min Specific Discharge Activities: Specific discharge activities: educating patient, discussing with gearcase assembler/social workers/dc planners and evaluating patient/reviewing data Status at Discharge: Cognitive status at discharge: cognitively intact, Behavioral status at discharge: cooperative, Functional status at discharge: independent ambulation Overall status at discharge: patient is back to baseline Quality Metrics Clinical Quality Measures During this hospital stay, did patient experience: None Coding Level of Care Code Acute Director Of Sustainability Programs for [facility] Fwd Diagnoses Intestinal malrotation Q43.3 Hypertension I10 Nausea vomiting and diarrhea R11.2; R19.7 Palpitations R00.2
== END 2019-09-06 15:29 | disposition home or self-care (01) | DRG 372 ==
LOC: ER 12:02 → MEDSURG 16:27
PROVIDERS: Emergency Medicine; Admitting Provider Student in an Organized Health Care Education/Training Program; Emergency Provider Family Medicine; Family Provider Family Medicine; PCP Family Medicine; Visit Provider Student in an Organized Health Care Education/Training Program
DX: A04.72 Enterocolitis due to Clostridium difficile, not specified as recurrent (principal); Q43.3 Congenital malformations of intestinal fixation; I48.91 Unspecified atrial fibrillation; I10 Essential (primary) hypertension; Z98.84 Bariatric surgery status; Z96.641 Presence of right artificial hip joint; F10.20 Alcohol dependence, uncomplicated; K57.90 Diverticulosis of intestine, part unspecified, without perforation or abscess without bleeding; R00.2 Palpitations
CPT/HCPCS: 12345; 36415; 71045; 74177; 80053; 80307; 82274; 83036; 83605; 83630; 83690; 83735; 84443; 84484; 85025; 85610; 87493; 87505; 87804; 93005; 94664; 96372; 96375; 99283; A9270; G0378; J2405; J3370; J3411; J3480; J7030; Q9967

== ENCOUNTER → 2019-09-18 10:06 | Outpatient (BNVA) | payer MEDICARE, SELFPAY | PROVIDERS: Family Provider Family Medicine; PCP Family Medicine; Visit Provider Internal Medicine Cardiovascular Disease | DX: I49.9 Cardiac arrhythmia, unspecified (principal); I10 Essential (primary) hypertension; E78.2 Mixed hyperlipidemia; I48.91 Unspecified atrial fibrillation | CPT/HCPCS: 80048; 83735 ==

== ENCOUNTER 2020-03-09 14:47 | Emergency (ER) | payer MEDICARE, SELFPAY ==
[2020-03-09 14:51] VITALS: BP 130/82; PULSE 86; RESP 18; TEMP 37.1; O2SAT 100; BMI 32.8
--- NOTE | 2020-03-09 15:08 | ED_ITS ---
HPI - Fall General: Chief Complaint: Fall Stated Complaint: fall, dizziness Time Seen by Provider: 03/09/20 15:03 History of Present Illness: HPI Narrative: Patient is a 64-year-old male who comes to the ED with left knee pain. Patient had left knee replaced a pproximately 5 years ago. Patient said that he was at his house and he went to sit down and is leg collapsed in his left knee fell into the floor. Patient patient says his pain in his left knee is rated about a 9 out of 10 currently. Weightbearing or flexing the knee causes a lot of pain. Associated symptoms-after fall: Denies abdominal pain, chest pain, headache(s), hematuria or neck pain Review of Systems Const: Denies: fever(s), chills or fatigue Eyes: Denies: change in vision or eye discomfort ENMT: Denies: throat pain, odynophagia, nasal discharge or nasal congestion Card: Denies: chest pain, palpitations, edema, swelling of feet/ankles, dyspnea on exertion or orthopnea Resp: Denies: dyspnea, productive cough or non-productive cough GI: Denies: abdominal pain, nausea, vomiting, diarrhea, constipation or hematochezia : Denies: flank pain, difficulty urinating, dysuria or hematuria Musc: Reports: extremity pain (left knee) and joint pain (left knee); Denies: neck pain, back pain or extremity swelling Skin/Breast: Denies: rash or new lesions Neuro: Denies: headache(s), numbness in extremities or weakness in extremities [facility] ED PFSH: Medical History Abnormal nuclear stress test Atrial fibrillation Benign essential hypertension with target blood pressure below 140/90 Hypertension Intermittent palpitations Intestinal malrotation Mixed hyperlipidemia Premature ventricular contractions Somnolence, daytime Surgical History History of bariatric surgery Gastric sleeve ([place]) History of left knee surgery History of right hip replacement History of ventral hernia repair x 2, supraumbilical, second time with mesh Family History Denies family history of Anesthesia complication Social History Smoking and tobacco status: never smoked Alcohol intake: current Alcohol intake frequency: 3 or more drinks per day Counseling given: Yes Household members: spouse Housing: House Physical Exam Const: COMMON NORMALS: no acute distress, patient oriented x3 and alert GENERAL APPEARANCE: cooperative and comfortable HENMT: COMMON NORMALS: normocephalic HEAD & SCALP: normocephalic MOUTH: Normal oral and palatal mucosa present THROAT: posterior oropharynx normal and uvula midline Eye: COMMON NORMALS: Equal, round and reactive pupils present PUPIL: Yes Equal, round and reactive pupils present Neck/C-Spine: COMMON NORMALS: supple GENERAL: Yes normal visual inspection Resp: COMMON NORMALS: normal respiratory effort, No retractions, No use of accessory muscles and clear to auscultation bilaterally AUSCULTATION: clear to auscultation bilaterally Cardio: COMMON NORMALS: regular rate, regular rhythm, S1 normal heart sound present, S2 normal heart sound present, No gallops present (Cardio), No clicks present (Cardio), No murmurs present (Cardio) and Peripheral pulses 2+ throughout RATE: regular rate RHYTHM: regular rhythm HEART SOUNDS: S1 normal heart sound present and S2 normal heart sound present PERIPHERAL PULSES: Peripheral pulses 2+ throughout GI: COMMON NORMALS: Normal to inspection, nondistended, normoactive bowel sounds present, Soft to palpation, non-tender and no masses PALPATION: Yes Soft to palpation : COMMON NORMALS: Yes no CVA tenderness BLADDER/KIDNEY EXAM: Yes no CVA tenderness Back/Pelvis: COMMON NORMALS: no CVA tenderness Extremity: COMMON NORMALS: no pedal edema NARRATIVE EXTREMITY EXAM: Patient has some mild edema around the knee with some tenderness along the medial aspect of the knee. Pedal pulse 2+ and sensation is intact. Limited range of motion due to pain. Neuro: COMMON NORMALS: patient oriented x3 and moves all extremities SENSORIUM/ORIENTATION: Yes alert Skin: COMMON NORMALS: no rashes or lesions noted GENERAL SKIN EXAM: no rashes or lesions noted and dry skin Course Vital Signs: Vital signs: Vital Signs Temperature 98.7 F 03/09/20 14:51 Pulse Rate 88 03/09/20 16:49 Respiratory Rate 18 03/09/20 16:49 Blood Pressure 120/70 03/09/20 16:49 Pulse Oximetry 98 03/09/20 16:49 MDM - Fall MDM Narrative: Medical decision making narrative: Patient is a 64-year-old male comes to the ED with left knee pain after fall. Patient had total knee replacement surgery on left knee approximately 5 years ago. X-ray of the left knee showed no acute fractures or findings and hardware looked good. Patient was discharged and told to rest ice and elevate left knee. Patient has crutches at home he can use to help him ambulate for the next couple days. Told to follow-up with PCP in 7 to 10 days for reevaluation. Return to ED precautions given. Patient understood and agreed with plan. Imaging Data^: Xray Ortho: Attestation: I personally reviewed and interpreted this imaging study as follows: Radiologist's impression: [address] [place] [address] XRay Report Signed Patient: Ethan Hardy Unit #: [id number] : 1955 Age/Sex: 64 / M ADM Date: 03/09/20 Loc: ER Room/Bed: Attending Dr: Ordering Provider/Ordering MD: Amandeep Disla Date of Service: 03/09/20 Procedure(s): XR knee LT 3V* [id number] Accession Number(s): [id number] Report Number: [id number] PROCEDURE INFORMATION: Exam: XR Left Knee Exam date and time: 03/09/2020 3:31 PM Age: 64 years old Clinical indication: Injury or trauma; Fall; Initial encounter; Blunt trauma; Injury date: 03/09/20; Prior surgery; Surgery type: Left knee replacement; Additional info: Fall twisted knee TECHNIQUE: Imaging protocol: XR Left knee. Views: 3 views. COMPARISON: No relevant prior studies available. FINDINGS: Bones/joints: There is a knee joint effusion. There is a satisfactory appearance of the left total knee arthroplasty. No acute bony fracture. No hardware loosening. Soft tissues: Normal. XR/XR knee LT 3V* [id number] IMPRESSION: 1. There is a satisfactory appearance of the left total knee arthroplasty. 2. No acute bony abnormality. Dictated By: Keila Alcaraz Signed By: Keila Alcaraz Signed Date/Time: 03/09/201616 DD/ 15 Discharge Plan Discharge Patient Disposition: Home Clinical Impression: Knee pain, left Qualifiers: Chronicity: acute Qualified Code(s): M25.562 - Pain in left knee Condition: Stable Prescriptions: No Action metoprolol succinate 100 mg tablet extended release 24 hr 100 mg PO DAILY 30 Days Qty: 30 RF: 5 ibuprofen 800 mg tablet 800 mg PO Q8H PRN (Reason: pain) RF: 0 hydrochlorothiazide 25 mg Tablet 25 mg PO DAILY RF: 0 losartan 100 mg Tablet 100 mg PO DAILY RF: 0 tamsulosin 0.4 mg Capsule 0.4 mg PO DAILY RF: 0 Discharge Orders: Discharge Order (Routine); Ordered 03/09/20 Ordered By: Amandeep Disla Referrals: Mallika Ceja MD [Primary Care Provider] - Discharge Diet: Regular Discharge Activity: Increase activity as tolerated Patient Instructions: Knee Pain (ED) Activity Restrictions/Additional Instructions: Follow-up with medical provider as directed in 7-10 days. Use crutches to assist in ambulation. Continue taking all home medications as prescribed. Take ibuprofen for pain. Return to the ER or your medical provider if condition worsens. Please read and understand discharge instructions. If any questions, please ask. Discharge Date/Time: 03/09/20 16:50 Coding Level of Care Code ED Community Health Program Coordinator for [facility] Exam Comprehensive
[2020-03-09 15:50] VITALS: RESP 18
[2020-03-09] MEDS: HYDROcodone-acetaminophen 7.5-325 mg Tablet 1 TAB PO (16:14)
[2020-03-09 16:49] VITALS: BP 120/70; PULSE 88; RESP 18; O2SAT 98
== END 2020-03-09 16:50 | disposition home or self-care (01) ==
PROVIDERS: Emergency Provider Physician Assistant; PCP Family Medicine
DX: M25.562 Pain in left knee (principal)
CPT/HCPCS: 12345; 73562; 99281; 99283

== ENCOUNTER 2020-09-11 12:19 | Inpatient (IN) | payer MEDICARE, SELFPAY ==
[2020-09-11] VITALS (11 sets, daily range): BP systolic 119–127; BP diastolic 78–95; PULSE 74–82; RESP 11–20; TEMP 36.8–36.9; O2SAT 96–99; BMI 32.1
--- NOTE | 2020-09-11 12:33 | XRR_ITS ---
PROCEDURE INFORMATION: Exam: XR Left Hip with Pelvis when Performed Exam date and time: 09/11/2020 1:15 PM Age: 65 years old Clinical indication: Fall with blunt left hip trauma. TECHNIQUE: Imaging protocol: XR Left hip with pelvis when performed. Views: 2 or 3 views. COMPARISON: CT abdomen pelvis w con* [id number] 09/04/2019 12:36 PM FINDINGS: There is a comminuted, minimally displaced transcervical/intertrochanteric fracture involving the proximal left femur. There is mild primary osteoarthritis involving the background left hip. XR/XR hip LT 2-3V wo/w pel* [id number] IMPRESSION: 1. Comminuted, minimally displaced transcervical/intertrochanteric fracture involving the proximal left femur. 2. Mild primary osteoarthritis involving the background left hip.
--- NOTE | 2020-09-11 12:35 | W.ED.FALL ---
HPI - Fall General: Chief Complaint: Fall Stated Complaint: fall Time Seen by Provider: 09/11/20 12:21 Source: patient, EMS and RN notes reviewed Mode of arrival: ambulatory Limitations: no limitations History of Present Illness: HPI Narrative: This patient states he is is a 65-year-old male who presents to the emergency department status post a slip and fall [place] on his left hip. Patient complains of left hip pain. Patient has had issues with his right hip in the past and has had a hip replacement on that side. Patient states he is has some tenderness and soreness to the left hip but is able to have range of motion which is limited due to the patient's strength but does perform range of motion issues. Patient does complain of pain with range of motion. Patient has no shortening or inward outward rotation of the joint or hip. MD complaint: fall Onset (ago): minute(s) Fall from: standing Fall witnessed: no Place fall occurred: home Loss of consciousness: None Symptoms prior to fall: none Context: tripped/slipped Location of injury: pelvis Location of injury - extremities: Left: thigh (Left hip) Severity: moderate Severity scale (1-10): 3 Associated symptoms-after fall: Reports no associated symptoms; Denies abdominal pain, chest pain or headache(s) Review of Systems General: Reports: 10 or more systems reviewed and unremarkable except in HPI and below Const: Denies: fever(s) or chills Eyes: Denies: change in vision or eye discomfort ENMT: Denies: throat pain or uvular edema Card: Denies: chest pain, palpitations or swelling of feet/ankles Resp: Denies: dyspnea GI: Denies: abdominal pain Musc: Reports: extremity pain and limited range of motion; Denies: back pain, extremity swelling, joint redness or joint warmth Skin/Breast: Denies: rash Neuro: Denies: headache(s), numbness in extremities or weakness in extremities PFS ED PFSH: Medical History (Updated 09/11/20 @ 13:53 by Darwin Barclay MD) Abnormal nuclear stress test Atrial fibrillation Benign essential hypertension with target blood pressure below 140/90 Hypertension Intermittent palpitations Intestinal malrotation Mixed hyperlipidemia Premature ventricular contractions Somnolence, daytime Surgical History History of bariatric surgery Gastric sleeve ([place]) History of left knee surgery History of right hip replacement History of ventral hernia repair x 2, supraumbilical, second time with mesh Family History Denies family history of Anesthesia complication Social History Smoking and tobacco status: never smoked Alcohol intake: current Alcohol intake frequency: 3 or more drinks per day Counseling given: Yes Household members: spouse Housing: House Physical Exam Const: COMMON NORMALS: no acute distress, patient oriented x3, no limitations, healthy appearing, alert and well nourished NUTRITIONAL APPEARANCE: overweight HENMT: COMMON NORMALS: normocephalic, atraumatic, hearing grossly normal bilaterally and external ears normal HEAD & SCALP: normocephalic and atraumatic EXTERNAL EAR: Yes external ears normal THROAT: no uvular edema Neck/C-Spine: COMMON NORMALS: full ROM, no lymphadenopathy, supple and no JVD Chest: COMMONS NORMALS: normal inspection of the chest, normal palpation of entire chest wall, normal inspection of the breasts and normal palpation of the breasts Breast/axilla inspection: Yes normal inspection of the breasts BREAST/AXILLA PALPATION: Yes normal palpation of the breasts Resp: COMMON NORMALS: normal respiratory effort Cardio: COMMON NORMALS: no JVD, regular rate and regular rhythm RATE: regular rate RHYTHM: regular rhythm : COMMON NORMALS: Yes no CVA tenderness BLADDER/KIDNEY EXAM: Yes no CVA tenderness Back/Pelvis: COMMON NORMALS: no CVA tenderness and thoracic and lumbar spine normal to inspection Extremity: COMMON NORMALS: normal to inspection LEFT LOWER EXTREMITY: Yes hip joint Left hip: Yes inspection (Appears to be normal.), Yes palpation (Mild tenderness with palpation laterally), Yes ROM (Tenderness with range of motion) and Yes neurovascular exam (Normal vascular exam) EXTREMITY IMAGE (FRONT): 1. Hip pain Neuro: SENSORIUM/ORIENTATION: Yes alert Course Reevaluation(s): Reevaluation #1: Patient is n.p.o. Patient understands that he will be admitted and possible have surgery on left hip. Dr. Glaser will see patient in the ER and so with Dr. Carrera. Time: 13:51 Consultations: Consultation #1: I did discuss at length with Dr. Glaser orthopedic surgeon. Reviewed patient's x-rays. Patient will be admitted to the hospital for surgery with Dr. Glaser. He request hospitalist admit for medical management. He also request CT scan of left hip. Time: 13:49 Consultation #2: I did discuss at length with Dr. Cook hospitalist. He agrees to admit the patient for medical management. Time: 13:51 Vital Signs: Vital signs: Vital Signs Temperature 98.4 F 09/11/20 12:34 Pulse Rate 74 09/11/20 12:34 Respiratory Rate 20 H 09/11/20 12:34 Blood Pressure 124/81 09/11/20 12:34 Pulse Oximetry 98 09/11/20 12:34 MDM - Fall Imaging Data^: Xray Ortho: Attestation: I personally reviewed and interpreted this imaging study as follows: My impression: Appears that the patient has a left femoral neck fracture. Discharge Plan Discharge Patient Disposition: Placed in Observation Clinical Impression: Closed fracture of left hip Coding Level of Care Code ED Skiing Teacher for [facility] Fwd Exam Comprehensive
--- NOTE | 2020-09-11 13:46 | CTR_ITS ---
PROCEDURE INFORMATION: Exam: CT Left Lower Extremity Without Contrast, Hip Exam date and time: 09/11/2020 1:47 PM Age: 65 years old Clinical indication: Slip and fall with left hip fracture. TECHNIQUE: Imaging protocol: CT of the Left lower extremity without contrast was performed. Exam focused on the hip. Radiation optimization: All CT scans at this facility use at least one of these dose optimization techniques: automated exposure control; mA and/or kV adjustment per patient size (includes targeted exams where dose is matched to clinical indication); or iterative reconstruction. COMPARISON: CR (PELVIS, ) 09/11/2020 1:00 PM RADIATION DOSE METRICS: Total DLP (mGy-cm): 2120.02 FINDINGS: There is a comminuted, minimally displaced transcervical/intertrochanteric fracture involving the proximal left femur. There is mild primary osteoarthritis at the left hip. The bladder wall is thickened with adjacent edema. The prostate appears enlarged but is incompletely visualized. Colonic diverticulosis is noted without evidence of acute diverticulitis. A left pelvic lymph node measures 1.1 x 1.0 cm. A left inguinal lymph node measures 1.[address]/CT hip LT wo con* [id number] IMPRESSION: 1. Comminuted, minimally displaced transcervical/intertrochanteric fracture involving the proximal left femur. 2. Mild primary osteoarthritis at the left hip. 3. The bladder wall is thickened with adjacent edema; considerations include partial bladder outlet obstruction or cystitis. Correlate with urinalysis. 4. The prostate appears enlarged but is incompletely visualized. Correlate with serum PSA to assess likelihood of prostate malignancy. 5. Colonic diverticulosis is noted without evidence of acute diverticulitis. 6. Left pelvic and left inguinal lymphadenopathy. Radiation Dose CTDIVOL = (mGy): DLP = 2120.02 (mGy-cm)
--- NOTE | 2020-09-11 13:54 | PC.PHAR ---
pt states the hctz and losartan was dced states he has been off for 3 weeks-pt states he only takes flomax prn states he has been taking for 3-4 days
--- NOTE | 2020-09-11 14:14 | PM.HP ---
Providers/Chief Complaint Primary Care Provider: Mallika Ceja MD Chief Complaint: fall History of Present Illness Ethan Hardy is a 65 year old male who slipped on ice landing on his left hip with immediate pain. He was transferred here to the emergency room where radiographs have revealed a left hip fracture. The patient has a previous history of a right total hip arthroplasty done in [place] 7 years ago and has some pain with that. He denies any other extremity pain. He previously is fully amatory without aids. He recently moved here from [place] and is living with family. Review of Systems General: Reports: 10 or more systems reviewed and unremarkable except in HPI and below Medications/Allergies Home Medications Medication Instructions Recorded Confirmed Last Taken Type ibuprofen 800 mg tablet 800 mg PO Q8H PRN 11/12/19 09/11/20 03/09/20 History tamsulosin 0.4 mg PO QAM PRN 03/09/20 09/11/20 09/11/20 History metoprolol succinate 100 mg PO DAILY@09/11/20 09/11/20 09/11/20 08:00 History nifedipine 60 mg PO DAILY@09/11/20 09/11/20 09/11/20 08:00 History Allergies Allergy/AdvReac Type Severity Reaction Status Date / Time amlodipine AdvReac Mild Lower Verified 09/11/20 13:54 extremity edema PFSH Acute PFSH: Medical History (Updated 09/11/20 @ 13:53 by Darwin Barclay MD) Abnormal nuclear stress test Atrial fibrillation Benign essential hypertension with target blood pressure below 140/90 Hypertension Intermittent palpitations Intestinal malrotation Mixed hyperlipidemia Premature ventricular contractions Somnolence, daytime Surgical History History of bariatric surgery Gastric sleeve ([place]) History of left knee surgery History of right hip replacement History of ventral hernia repair x 2, supraumbilical, second time with mesh Family History Denies family history of Anesthesia complication Social History Smoking and tobacco status: never smoked Alcohol intake: current Alcohol intake frequency: 3 or more drinks per day Counseling given: Yes Household members: spouse Housing: House Vitals/I&O/Wt Last Vital Signs Temp 98.4 F 09/11/20 12:34 Pulse 74 09/11/20 12:34 Resp 20 H 09/11/20 12:34 BP 124/81 09/11/20 12:34 Pulse Ox 98 09/11/20 12:34 Weight last 48 hrs Weight 230 lb Physical Exam Narrative: EXAM NARRATIVE: The patient is supine in bed in no apparent distress. He answers questions appropriately HEAD: Normocephalic/atraumatic. NECK: Soft supple nontender. HEART: Normal heart sounds, regular rhythm. CHEST: Clear to auscultation. ABDOMEN: Soft nontender nondistended. The patient has no obvious deformity of the left lower extremity however he has severe pain with motion of the left hip. Palpable left dorsalis pedis pulse Flexes and extends left ankle and toes without any motor deficits. Sensation intact to light touch. Data Xray Ortho: Radiologist's impression: Radiographs reviewed of the left hip. The patient appears to have a vertical fracture which appears to be in the basicervical intertrochanteric region. A&P Assessment and plan (1) Closed fracture of left hip: The patient has a nondisplaced left hip fracture. It appears to be a fairly vertical basicervical fracture which may well be treated with a compression screw and sideplate. I am obtaining a CT scan to precisely define anatomy. We will proceed to the operating room Sunday or Sunday. I will obtain medical clearance. Status: Acute Attestations Medical Necessity Statement*: Inpatient hospitalization required for pending surgery. Coding Level of Care Code Acute Flight [employer] Specialist for [facility] Diagnoses Closed fracture of left hip S72.002A
--- NOTE | 2020-09-11 14:39 | P.CONIM_ITS ---
Providers/Reason For Consult Consulting Physican/Specialty*: Ferdinand Cook MD/internal medicine Reason for Consult*: Medical problems Primary Care Provider: Mallika Ceja MD History of Present Illness History of Present Illness Ethan Hardy is a 64 year old male past medical history of gastric sleeve surgery, hernia repair surgery, hypertension, palpitations found to have multiple VPcs on holter monitoring, recent c diff, chronic alcohol abuse with usually 1 glass of wine with a quarter of hard alcohol every day before he goes to bed. He states today he was trying to work on his patio when he got distracted and slipped on the ice after which he started having pain in his hip and came to the ER where he was found to have hip fracture. He states he has been having occasional chest fluttering is which is on and off but does not bother him with dizziness, difficulty in breathing. Did not have that episode prior to the fall today. He has not been having any diarrhea and has been taking probiotics daily. He states he has been having some kidney issues and is waiting to see a health analytics consultant though he is not really sure what the issues are currently. He denies any nausea, vomiting, headache, dizziness, chest pain, fever, flulike symptoms, exposure to COVID-19, dysuria, constipation, diarrhea. CT scan done in the ER showed a comminuted, minimally displaced intratrochanteric fracture involving the left proximal femur. No other blood work done in the ER yet. Review of Systems General: Reports: 10 or more systems reviewed and unremarkable except in HPI and below Const: Denies: fever(s), chills, body aches, change in appetite, change in weight, malaise, night sweats, diaphoresis, change in sleep pattern, daytime sleepiness or snoring Eyes: Denies: change in vision, blurry vision, photophobia, eye discomfort or eye discharge ENMT: Denies: throat pain, enlarged tonsils, hoarseness, mouth pain, oral sores, dry mouth, tinnitus, nasal congestion or post nasal drip Card: Denies: chest pain, palpitations, irregular heart rhythm, edema, swelling of feet/ankles, lightheadedness, syncope, pre-syncope, dyspnea on exertion, orthopnea, leg pain with exertion or acrocyanosis Resp: Denies: dyspnea, productive cough, non-productive cough, wheezing, stridor, pain on inspiration, change in phlegm color, hemoptysis or chest congestion GI: Denies: abdominal pain, nausea, vomiting, hematemesis, coffee ground emesis, dysphagia, heartburn, diarrhea, constipation, bloating, GI cramping, mary nge in bowel habits, pain on defecation, hematochezia or melena : Denies: flank pain, difficulty urinating, dysuria, urinary frequency, urinary urgency, urinary hesitancy, urinary dribbling, difficulty starting urination, change in urine stream, nocturia or hematuria Musc: Denies: neck pain, back pain, extremity pain, joint pain, joint swelling, joint redness, joint stiffness or limited range of motion Neuro: Denies: headache(s), numbness in extremities, weakness in extremities, sensory changes, lack of coordination, difficulty walking, frequent falls, dizziness, vertigo, confusion, Slurred speech present, difficulty communicating thoughts or seizure-like activity Psych: Denies: anxiety, depression, mood swings, panic attacks, hopelessness or irritability Endo: Denies: polyuria, polydipsia, tired all the time, cold intolerance, excessive sweating, flushing or heat intolerance Panfilo/Lymph: Denies: easy bruising or easy bleeding All/Imm: Denies: tongue swelling, facial swelling or acute wheezing Meds/Allergies Home Medications and Allergies Home Medications Medication Instructions Recorded Confirmed Last Taken Type ibuprofen 800 mg tablet 800 mg PO Q8H PRN 11/12/19 09/11/20 03/09/20 History tamsulosin 0.4 mg PO QAM PRN 03/09/20 09/11/20 09/11/20 History metoprolol succinate 100 mg PO DAILY@09/11/20 09/11/20 09/11/20 08:00 History nifedipine 60 mg PO DAILY@09/11/20 09/11/20 09/11/20 08:00 History Allergies Allergy/AdvReac Type Severity Reaction Status Date / Time amlodipine AdvReac Mild Lower Verified 09/11/20 13:54 extremity edema PFSH Acute PFSH: Medical History (Updated 09/11/20 @ 17:22 by Ferdinand Cook MD) Abnormal nuclear stress test Alcohol abuse Benign essential hypertension with target blood pressure below 140/90 BPH loc w urin obs/LUTS Elevated PSA Hypertension Intermittent palpitations Intestinal malrotation Mixed hyperlipidemia Premature ventricular contractions Somnolence, daytime Surgical History History of bariatric surgery Gastric sleeve ([place]) History of left knee surgery History of right hip replacement History of ventral hernia repair x 2, supraumbilical, second time with mesh Family History Denies family history of Anesthesia complication Social History Smoking and tobacco status: never smoked Alcohol intake: current Alcohol intake frequency: 3 or more drinks per day Counseling given: Yes Household members: spouse Housing: House Vitals/I&O/Wt Last Vital Signs Temp 98.4 F 09/11/20 12:34 Pulse 74 09/11/20 12:34 Resp 20 H 09/11/20 12:34 BP 124/81 09/11/20 12:34 Pulse Ox 98 09/11/20 12:34 Weight last 48 hrs Weight 104.326 kg Physical Exam Narrative: EXAM NARRATIVE: EXAM NARRATIVE: General: No acute distress, AO x3, states pain is controlled for now. HEENT: PERRLA, pupils bilaterally equal and reactive, pale Chest: Bilateral normal vesicular breath sounds, occasional rhonchi, equal good air entry bilaterally CVS: S1-S2 regular, no murmurs, no tachycardia, no gallops, no rubs Abdomen: Soft, nontender, no organomegaly, bowel sounds present, morbidly obese Neuro: No focal deficits, no facial deformity, AO x3, power 5/5 in all limbs Data Labs: Other Labs: Impressions Hip/Pelvis X-Ray 09/11/20 12:33 IMPRESSION: 1. Comminuted, minimally displaced transcervical/intertrochanteric fracture involving the proximal left femur. 2. Mild primary osteoarthritis involving the background left hip. Hip CT 09/11/20 13:46 IMPRESSION: 1. Comminuted, minimally displaced transcervical/intertrochanteric fracture involving the proximal left femur. 2. Mild primary osteoarthritis at the left hip. 3. The bladder wall is thickened with adjacent edema; considerations include partial bladder outlet obstruction or cystitis. Correlate with urinalysis. 4. The prostate appears enlarged but is incompletely visualized. Correlate with serum PSA to assess likelihood of prostate malignancy. 5. Colonic diverticulosis is noted without evidence of acute diverticulitis. 6. Left pelvic and left inguinal lymphadenopathy. Radiation Dose CTDIVOL = (mGy): DLP = 2120.02 (mGy-cm) A&P Assessment and plan (1) Closed fracture of left hip: Status: Acute (2) Anemia: Status: Acute (3) Alcohol abuse: Status: Acute (4) Benign essential hypertension with target blood pressure below 140/90: Status: Acute (5) Premature ventricular contractions: Status: Acute (6) Somnolence, daytime: Status: Acute (7) Abnormal nuclear stress test: Status: Acute (8) Mixed hyperlipidemia: Status: Acute Additional A&P Information Closed intertrochanteric fracture of the left hip: Dr. Glaser will take the patient to the OR tomorrow for ORIF. Anticoagulation, perioperative antibiotics, pain medications, physical therapy as per Dr. Glaser. Will monitor hemoglobin postoperatively. Check CBC, CMP, INR, iron panel, TSH, procalcitonin, chest x-ray, EKG. Hypertension: Goal blood pressure less than 140/90 mmHg. Continue home dose of metoprolol for now. Hold off on nifedipine for now. We will continue to monitor blood pressures and can start medications if needed. Alcohol abuse: [facility] protocol. Thiamine, folic acid. Check vitamin B12, folate levels. Banana bag. Abnormal stress test: Last stress test in 2019 showed a small size reversible perfusion defect of apical lateral wall and fixed defect in apical inferior wall which may represent an area of small myocardial infarction and LAD territory. No active chest pain. Check lipid panel, HbA1c. Patient denies any angina: Symptoms at rest or exertion. Continue Flomax. Full code. Cardiac diet, n.p.o. after midnight. Consult Attestations Medical Necessity Statement: As per primary team. Time Spent in Patient Care: Greater than 35 minutes (>than 50% of time spent in counselling and/or direct pt care on unit) . Coding Level of Care Code Acute Hide Selector for Chg Fwd Diagnoses Closed fracture of left hip S72.002A Anemia D64.9 Alcohol abuse F10.10 Benign essential hypertension with target blood pressure below 140/90 I10 Premature ventricular contractions I49.3 Somnolence, daytime R40.0 Abnormal nuclear stress test R94.39 Mixed hyperlipidemia E78.2
[2020-09-11] MEDS: famotidine 20 mg/2 mL INJ IVP (16:13)
[2020-09-11] MEDS: morphine 4 mg/mL SDV 1 mL 2 MG IVP ×2 (16:14→20:23)
[2020-09-11 17:09] LABS: Basophils % 0.3 %; Eosinophils # 0.1 10^3/uL (0.0-0.8); Eosinophils % 1.4 %; Hematocrit 29.6 % (42.0-52.0); Hemoglobin 9.9 g/dL (11.7-16.6); Lymphocytes # 0.6 10^3/uL (0.8-4.8); Mean Corpuscular HGB Conc 33.4 g/dL (30.0-36.0); Mean Corpuscular Hemoglobin 36.5 pg (28.0-34.0); Mean Corpuscular Volume 109.2 fL (80-94); Mean Platelet Volume 12.1 fL (7.4-10.4); Monocytes # 0.8 10^3/uL (0.2-0.9); Monocytes % 7.6 %; Neutrophils # 8.56 10^3/uL (1.8-7.7); Neutrophils % 84.3 %; Nucleated Red Blood Cells % 0 %; Platelet Count 235 10^3/cmm (130-400); Red Blood Count 2.71 10^6/uL (4.1-5.3); Red Cell Distribution Width 13.9 % (12.1-15.1); White Blood Count 10.2 10^3/uL (4.0-10.0)
[2020-09-11 17:17] LABS: Iron 30 ug/dL (59-158); Percent Saturation 16.3 % (20-50); Total Iron Binding Capacity 183 mcg/dl; Unsaturated Iron Binding 153 ug/dL (112-347)
--- NOTE | 2020-09-11 17:23 | XRR_ITS ---
PROCEDURE INFORMATION: Exam: XR Chest, 1 View Exam date and time: 09/11/2020 5:26 PM Age: 65 years old Clinical indication: Preoperative examination. Cardiovascular screening. TECHNIQUE: Imaging protocol: XR of the chest Views: 1 view. COMPARISON: CR XR chest 1V portable [id number] 09/04/2019 11:54 AM FINDINGS: Lungs: There is mild scarring at the left base. There is subsegmental atelectasis or scarring at the right base. No amanuel consolidation to suggest pneumonia. Pleural spaces: No pleural effusion. No pneumothorax. Heart/Mediastinum: The cardiac silhouette is unchanged. No gross evidence of pneumomediastinum. Bones/joints: No gross fracture. XR/XR chest 1V portable [id number] IMPRESSION: No acute cardiopulmonary abnormality identified.
--- NOTE | 2020-09-11 17:24 | ECG_ITS ---
[facility] Test Date: 2020-09-11 Pat Name: Ethan Hardy Department: Room: 257 Gender: Male Car Dryer: : 1955 Requested By: Ferdinand Cook Order Number: [id number] Lalita MD: Navneet Huang M.D. Measurements Intervals [place] Rate: 90 P: 30 MN: 161 QRS: 26 QRSD: 93 T: 25 QT: 381 QTc: 466 Interpretive Statements SINUS RHYTHM WITH OCCASIONAL SUPRAVENTRICULAR PREMATURE COMPLEXES NONSPECIFIC T-WAVE ABNORMALITY Compared to ECG 09/04/2019 17:49:50 T-wave abnormality now present Ventricular premature complex(es) no longer present Electronically Signed On 09-11-2020 19:27:04 JAVA LEAD DEVELOPER by Navneet Huang M.D. [id number]
[2020-09-11 17:25] LABS: Alanine Aminotransferase 11 U/L (0-41); Alkaline Phosphatase 94 IU/L (40-130); Aspartate Amino Transferase 24 U/L (0-40); Blood Urea Nitrogen 14 mg/dL (8-23); Carbon Dioxide 20 mmol/L (22-29); Chloride 105 mmol/L (98-107); Globulin 3.3 g/dL (1.3-4.6); Glomerular Filtration Rate 84.4 mL/min (90-130); Glucose 89 mg/dL (65-115); Osmolality Calculated 280 mOsm/kg (285-295); Sodium 135 mmol/L (136-145); Total Bilirubin 0.5 mg/dL (0.15-1.2); Total Protein 6.3 g/dL (6.6-8.7)
[2020-09-11 17:29] LABS: Anion Gap 13.8 (5-19); Potassium 3.8 mmol/L (3.5-5.1)
[2020-09-11] MEDS: sodium chloride 0.9% 1,000 ML 75 ML IV (18:01)
[2020-09-11] MEDS: oxyCODONE 5 mg IR Tab/Cap PO ×2 (18:20→23:52)
[2020-09-11] MEDS: iron sucrose 200 MG in sodium chloride 0.9% (100 ml) 100 ML 220 MG IV (18:24)
[2020-09-11] MEDS: folic acid 1 MG, multivitamin inj 10 ML, thiamine 100 MG in sodium chloride 0.9% 1,000 ML 252.8 MG IV (20:00)
[2020-09-12] VITALS (13 sets, daily range): BP systolic 124–152; BP diastolic 81–90; PULSE 89–111; RESP 16–20; TEMP 36.6–38.1; O2SAT 92–97
[2020-09-12] MEDS: morphine 4 mg/mL SDV 1 mL 2 MG IVP ×3 (02:27→15:14)
[2020-09-12 05:59] LABS: Basophils % 0.2 %; Eosinophils % 0.3 %; Hematocrit 29.3 % (42.0-52.0); Hemoglobin 9.6 g/dL (11.7-16.6); Lymphocytes # 0.4 10^3/uL (0.8-4.8); Lymphocytes % 3.9 %; Mean Corpuscular HGB Conc 32.8 g/dL (30.0-36.0); Mean Corpuscular Hemoglobin 36.8 pg (28.0-34.0); Mean Corpuscular Volume 112.3 fL (80-94); Mean Platelet Volume 12.1 fL (7.4-10.4); Monocytes % 9.1 %; Neutrophils # 9.58 10^3/uL (1.8-7.7); Neutrophils % 85.7 %; Nucleated Red Blood Cells % 0 %; Platelet Count 219 10^3/cmm (130-400); Red Blood Count 2.61 10^6/uL (4.1-5.3); Red Cell Distribution Width 14.2 % (12.1-15.1); White Blood Count 11.2 10^3/uL (4.0-10.0)
[2020-09-12] MEDS: metoprolol succinate ER (24 HR) 100 mg Tablet PO (06:14)
[2020-09-12] MEDS: oxyCODONE 5 mg IR Tab/Cap PO ×2 (06:14→19:42)
[2020-09-12 06:25] LABS: Alanine Aminotransferase 10 U/L (0-41); Albumin Level 3.1 g/dL (3.5-5.2); Alkaline Phosphatase 87 IU/L (40-130); Anion Gap 14.8 (5-19); Aspartate Amino Transferase 17 U/L (0-40); Blood Urea Nitrogen 13 mg/dL (8-23); Calcium 8.6 mg/dL (8.5-10.5); Carbon Dioxide 19 mmol/L (22-29); Chloride 104 mmol/L (98-107); Chol HDL Ratio 2.15 mg/dL (1.0-5.00); Cholesterol 129 mg/dL (0-200); Globulin 2.9 g/dL (1.3-4.6); Glomerular Filtration Rate 84.4 mL/min (90-130); Glucose 88 mg/dL (65-115); HDL Cholesterol 60 mg/dL (60-100); LDL Cholesterol Calculated 54 mg/dL (50-129); Osmolality Calculated 278 mOsm/kg (285-295); Potassium 3.8 mmol/L (3.5-5.1); Sodium 134 mmol/L (136-145); Total Bilirubin 0.6 mg/dL (0.15-1.2); Triglycerides 77 mg/dL (0-150); VLDL Cholestrol Calculation 15 mg/dL (0-30)
[2020-09-12 06:50] LABS: Estmated Average Glucose 82; Hemoglobin A1C 4.5 % (4.0-6.0)
[2020-09-12] MEDS: famotidine 20 mg/2 mL INJ IVP ×2 (07:01→17:25)
[2020-09-12] MEDS: multivitamin therapeutic Tablet 1 TAB PO (08:39)
[2020-09-12] MEDS: sodium chloride 0.9% 1,000 ML 75 ML IV (08:39)
[2020-09-12] MEDS: folic acid 1 mg Tablet PO (08:39)
[2020-09-12] MEDS: thiamine 100 mg Tablet PO (08:39)
--- NOTE | 2020-09-12 10:26 | PC.CHAP ---
Pastoral Care Encounter/Spiritual Assessment Type of Contact [] Declined safety clothing and equipment developer visit [] Patient/Family/Request visit [] Outpatient visit [] Follow-up visit [] Physician referral [] Code/Alert [X] Routine visit [] Staff referral [] Actively dying [] Patient sleeping [] Family support [] [] Out of room [] Palliative care [] [] Receiving care in room [] Pre-surgical visit [] Trauma [] Long length of stay [] ICU visit [] Other: Relational/Emotional Strength [X] Patient feels connected with others/family/visitors/staff [] Distress [] Loneliness/isolation [] Abandonment Spirituality of Patient [X] Person of Michelle [] Attends Christianity of their Michelle [X] Believes in Prayer [] Reads Bible or Oriental Orthodox materials [] There are Spiritual issues to be addressed Oracle Technical Architect Interventions [X] Prayer [X] Active listening [X] Non-anxious presence [X] Spiritual/emotional support [] Crisis/trauma care [] Spiritual counseling [] Bereavement support [] Provided bereavement packet [] Provided Bible/devotional materials [] Provided toy/stuffed animal, coloring book to patient or family member [] Provided Communion [] Anointing/[place] [] Salvation [X] Completed spiritual assessment [] Other: Impact on Illness or Injury [] Angry [] Fearful [] Anxious [] Often cries [] Exhaustion [] Unable to work [] Unable to attend congregational [] Unable to walk/stand [] Unable to read [] Unable to drive [] Unable to eat/drink [] Unable to sleep [] Unable to be with family [] Patient intubated [] Other: Summary Pt is in good spirits and has a positive attitude. Hoping to have his injury resolved soon so he can return home. He requested prayer for a good outcome. Time spent with patient 10min <
--- NOTE | 2020-09-12 14:32 | PM.PN ---
Subjective Subjective: Interval history: No acute events overnight. Patient lying comfortably in bed. Complaining of pain. He is awaiting his OR and is anxious to go to the OR. Has remained hemodynamically stable and afebrile in last 24 hours since admission. Vitals/I&O/Wt Last Vital Signs Temp 98.3 F 09/12/20 11:07 Pulse 96 09/12/20 11:07 Resp 20 H 09/12/20 11:07 BP 148/89 09/12/20 11:07 Pulse Ox 92 09/12/20 11:07 09/11/20 09/12/20 09/12/20 22:59 06:59 14:59 Intake Total 310 / 310 1953.7 / 2263.7 107.5 / 107.5 Output Total 500 / 500 500 / 500 Balance 310 / 310 1453.7 / 1763.7 -392.5 / -392.5 Weight last 48 hrs Weight 104.326 kg Physical Exam Narrative: EXAM NARRATIVE: EXAM NARRATIVE: General: No acute distress, AO x3, states pain is controlled for now. HEENT: PERRLA, pupils bilaterally equal and reactive, pale Chest: Bilateral normal vesicular breath sounds, occasional rhonchi, equal good air entry bilaterally CVS: S1-S2 regular, no murmurs, no tachycardia, no gallops, no rubs Abdomen: Soft, nontender, no organomegaly, bowel sounds present, morbidly obese Neuro: No focal deficits, no facial deformity, AO x3, power 5/5 in all limbs Data : 09/12/20 05:18 09/12/20 05:18 A&P Assessment and plan (1) Closed fracture of left hip: Status: Acute (2) Anemia: Status: Acute (3) Alcohol abuse: Status: Acute (4) Benign essential hypertension with target blood pressure below 140/90: Status: Acute (5) Premature ventricular contractions: Status: Acute (6) Somnolence, daytime: Status: Acute (7) Abnormal nuclear stress test: Status: Acute (8) Mixed hyperlipidemia: Status: Acute Additional A&P Information Closed intertrochanteric fracture of the left hip: Dr. Glaser will take the patient to the OR tomorrow for ORIF. Anticoagulation, perioperative antibiotics, pain medications, physical therapy as per Dr. Glaser. Will monitor hemoglobin postoperatively. Hypertension: Goal blood pressure less than 140/90 mmHg. Continue home dose of metoprolol for now. Hold off on nifedipine for now. We will continue to monitor blood pressures and can start medications if needed. Alcohol abuse: [facility] protocol. Thiamine, folic acid. Leukocytosis: No active signs of infection. Chest x-ray negative for consolidation, patient has remained afebrile. Check urinalysis. For now start patient on ceftriaxone as patient is perioperative. If urinalysis negative for infection we will stop the antibiotic as well and continue to monitor. Abnormal stress test: Last stress test in 2018 showed a small size reversible perfusion defect of apical lateral wall and fixed defect in apical inferior wall which may represent an area of small myocardial infarction and LAD territory. No active chest pain. Check lipid panel, HbA1c. Patient denies any angina equivalent symptoms at rest or exertion. Iron deficiency anemia: Start patient on IV iron supplementation. Day 2/ today. Continue Flomax. Normal saline at 50 cc/h Full code. Cardiac diet, n.p.o. after midnight. Attestations Medical Necessity Statement*: As per primary team. Time Spent in Patient Care: Greater than 35 minutes (>than 50% of time spent in counselling and/or direct pt care on unit). Coding Level of Care Code Acute Seater Grinder for g Fwd Diagnoses Closed fracture of left hip S72.002A Anemia D64.9 Alcohol abuse F10.10 Benign essential hypertension with target blood pressure below 140/90 I10 Premature ventricular contractions I49.3 Somnolence, daytime R40.0 Abnormal nuclear stress test R94.39 Mixed hyperlipidemia E78.2
[2020-09-12] MEDS: cefTRIAXone 1,000 MG in sodium chloride 0.9% (plus) 50 ML 100 MG IV (15:05)
[2020-09-12] MEDS: iron sucrose 200 MG in sodium chloride 0.9% (100 ml) 100 ML 220 MG IV (17:25)
[2020-09-12 17:40] LABS: Blood Urine 3+ (Negative); Glucose Urine UA Norm (Normal); Ketones Urine 1+ (Negative); Protein Urine 2+ (Negative); Specific Gravity, Urine 1.015 (1.005-1.030); Urine Appearance Cloudy (CLEAR); Urine Color Yellow (Yellow); pH Urine 6 (5-7)
[2020-09-12 17:41] LABS: Bilirubin Urine Neg (Negative); Leukocyte Esterase Urine 2+ (Negative); Nitrate Urine Positive (Negative); Urobilinogen Urine Norm (Negative)
[2020-09-12 17:53] LABS: RBC Urine 50-80 /hpf (0-2); Squamous Epithelial Cell Urine RARE /hpf (0-5); WBC Urine TOO NUMEROUS TO CNT /hpf (0-5)
[2020-09-12 17:54] LABS: Add Urine Culture? Yes; Bacteria Urine 4+ /hpf; Mucus Urine 3+ /hpf
--- NOTE | 2020-09-12 18:17 | PM.PN ---
Subjective Subjective: Interval history: Pain adequately controlled. Patient a bit confused. Vitals/I&O/Wt Last Vital Signs Temp 98.5 F 09/12/20 15:35 Pulse 111 H 09/12/20 15:36 Resp 20 H 09/12/20 15:35 BP 152/89 09/12/20 15:35 Pulse Ox 93 09/12/20 15:35 09/12/20 09/12/20 09/12/20 06:59 14:59 22:59 Intake Total 1953.7 / 2263.7 107.5 / 107.5 Output Total 500 / 500 500 / 500 200 / 700 Balance 1453.7 / 1763.7 -392.5 / -392.5 -200 / -592.5 Weight last 48 hrs Weight 230 lb Physical Exam Narrative: EXAM NARRATIVE: Left hip aligned. Minimal swelling. Flexes and extends left toes and ankle. Urinary Catheter Management^: Haq: Cath Placed During This Visit: yes Reason for Continuing Indwelling Catheter: Acute Urinary Retention or Obstruction Urinary Catheter Date of Insertion: 09/12/20 Urinary Catheter Time of Insertion: 16:34 Data : 09/12/20 05:18 09/12/20 05:[address]: I personally reviewed and interpreted this imaging study as follows: (CT scan left hip) My impression: Patient has a fairly vertical fracture of the left femoral neck without significant displacement. A&P Assessment and plan (1) Basicervical fracture of neck of left femur: I discussed the treatment of the patient's fracture with him. Do the vertical orientation of fracture and the low basicervical location he will be treated with a compression screw and side plate derotational construct to allow better protection against vertical shear. The implants were to arrive in the hospital today. We will proceed to the OR first thing in the morning. The patient is familiar with orthopedics procedures as he is undergoing a right total hip. He understands risk of nonunion malunion the possible need for future surgery on the left hip. Status: Acute Attestations Medical Necessity Statement*: Surgery tomorrow Coding Level of Care Code Acute Employee Relations Manager for [employer] Diagnoses Basicervical fracture of neck of left femur S72.042A
[2020-09-13] VITALS (25 sets, daily range): BP systolic 105–158; BP diastolic 52–122; PULSE 77–108; RESP 14–24; TEMP 36.5–37.7; O2SAT 92–98
--- NOTE | 2020-09-13 | XR_ITS ---
WS: [id number] C-ARM RADIOGRAPHS LEFT HIP; 4 IMAGES HISTORY: ORIF OF LFT HIP COMPARISON: 09/11/2020 Status post ORIF femoral neck and intertrochanteric fracture. Screw and lateral plate fixation with a fracture in normal position and alignment. XR/XR hip LT 2-3V wo/w pel* [id number] IMPRESSION: Status post ORIF LEFT hip fracture.
--- NOTE | 2020-09-13 | SCC_ITS ---
Procedure Done: Open reduction internal fixation left hip 109.0 seconds of fluoroscopic guidance, for a cumulative dose of 31.78 mGy, was provided to Dr. Glaser by the radiology department. C-arm images of the left hip were saved for the patient's permanent record. [facility] HOSPITALPiyush
[2020-09-13] MEDS: sodium chloride 0.9% 1,000 ML 50 ML IV ×2 (01:30→18:02)
[2020-09-13] MEDS: famotidine 20 mg/2 mL INJ IVP ×2 (05:40→18:02)
[2020-09-13] MEDS: metoprolol succinate ER (24 HR) 100 mg Tablet PO (06:12)
[2020-09-13 06:23] LABS: Basophils % 0.1 %; Hematocrit 29.9 % (42.0-52.0); Lymphocytes # 0.5 10^3/uL (0.8-4.8); Lymphocytes % 2.7 %; Mean Corpuscular HGB Conc 33.4 g/dL (30.0-36.0); Mean Corpuscular Hemoglobin 36.9 pg (28.0-34.0); Mean Corpuscular Volume 110.3 fL (80-94); Mean Platelet Volume 12.3 fL (7.4-10.4); Monocytes # 1.6 10^3/uL (0.2-0.9); Monocytes % 8.5 %; Neutrophils # 16.68 10^3/uL (1.8-7.7); Neutrophils % 87.9 %; Nucleated Red Blood Cells % 0 %; Platelet Count 212 10^3/cmm (130-400); Red Blood Count 2.71 10^6/uL (4.1-5.3); Red Cell Distribution Width 14.4 % (12.1-15.1)
[2020-09-13 06:47] LABS: Alanine Aminotransferase 9 U/L (0-41); Alkaline Phosphatase 80 IU/L (40-130); Anion Gap 15.8 (5-19); Aspartate Amino Transferase 12 U/L (0-40); Blood Urea Nitrogen 11 mg/dL (8-23); Calcium 8.3 mg/dL (8.5-10.5); Carbon Dioxide 20 mmol/L (22-29); Chloride 105 mmol/L (98-107); Globulin 3.2 g/dL (1.3-4.6); Glomerular Filtration Rate 96.7 mL/min (90-130); Glucose 108 mg/dL (65-115); Osmolality Calculated 284 mOsm/kg (285-295); Potassium 3.8 mmol/L (3.5-5.1); Sodium 137 mmol/L (136-145); Total Bilirubin 0.7 mg/dL (0.15-1.2); Total Protein 6.2 g/dL (6.6-8.7)
--- NOTE | 2020-09-13 07:28 | PC.NURSE ---
Patient in OR at shift change
--- NOTE | 2020-09-13 07:32 | P.ANESASSM_ITS ---
Pre-Anesthetic Assessment Pre-Anesthetic Assessment: Height/Weight: Height 1.8 m Weight 104.326 kg Temp Pulse Resp BP Pulse Ox 99.6 F 98 18 137/89 98 09/13/20 07:14 09/13/20 07:14 09/13/20 07:14 09/13/20 07:14 09/13/20 07:14 Preop Diagnosis: Fracture left femoral neck Proposed Procedure: Operation Date: 09/13/20 07:45 Proposed Procedures p Hip Screw(Left) - Ramakrishna Glaser MD Familial anesthetic complications: none Was Beta Gene taken within 24 hours: Yes Last intake: Intake NPO > 8 hrs Last Liquid Date 09/12/20 Last Liquid Time 01:30 Social: Social History: Alcohol (1-2 glass wine daily) and No tobacco Exam: Pre-Anes Outpt Exam: alert, oriented x 3, clear to auscultation bilaterally and regular rate & rhythm Airway: Cervical ROM: WNL MP: 3 Dentition: Full ( I have impacted teeth ) CV/HEM: CV/HEM: Arrythmia (PVCs) and HTN Neuropsych: Comments: 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 Anesthetic Plan: ASA status: 2 Anesthesia: General Risk of > 500 ml blood loss (7ml/kg in children): No Meds/Allergies Current Medications: Current Medications Generic Name Dose Route Start Last Admin Trade Name Dudleyq PRN Reason Stop Dose Admin Famotidine 20 mg 09/11/20 17:00 09/13/20 05:40 Famotidine 20 Mg /2 Ml Inj IVP 20 mg Q12H ARNAV Administration Folic Acid 1 mg 09/12/20 09:00 09/12/20 08:39 Folic Acid 1 Mg Tablet PO 1 mg DAILY ARNAV Administration Sodium Chloride 1,000 mls @ 50 ml s/hr 09/11/20 17:30 09/13/20 01:30 Sodium Chloride 0.9% IV 50 mls/hr .Q20H ARNAV Administration Iron Sucrose 200 m g/ Sodium 110 mls @ 220 mls /hr 09/11/20 18:45 09/12/20 18:13 Chloride IV Infused Q24H ARNAV Infusion Ceftriaxone Sodium 1,000 mg/ 50 mls @ 100 mls/ hr 09/12/20 14:30 09/12/20 18:13 Sodium Chloride IV Infused Q24H ARNAV Infusion Protocol Metoprolol Succina te 100 mg 09/12/20 07:00 09/13/20 06:12 Metoprolol Succi ana laura Er (24 Hr) 10 0 Mg Tablet PO 100 mg DAILY@07 ARNAV Administration Morphine Sulfate 2 mg 09/11/20 14:23 09/12/20 15:14 Morphine 4 Mg/Ml Sdv 1 Ml IVP 2 mg Q1H PRN Administration PAIN Multivitamins Ther apeutic 1 tab 09/12/20 09:00 09/12/20 08:39 Multivitamin The rapeutic Tablet PO 1 tab DAILY ARNAV Administration Oxycodone HCl 5 mg 09/11/20 14:23 09/12/20 19:42 Oxycodone 5 Mg I r Tab/Cap PO 5 mg Q3H PRN Administration PAIN Thiamine Mononitra te 100 mg 09/12/20 09:00 09/12/20 08:39 Thiamine 100 Mg Tablet PO 100 mg DAILY ARNAV Administration PFSH Anesthesia PFSH: Medical History (Updated 09/12/20 @ 18:21 by Ramakrishna Glaser MD) Abnormal nuclear stress test Alcohol abuse Benign essential hypertension with target blood pressure below 140/90 BPH loc w urin obs/LUTS Elevated PSA Hypertension Intermittent palpitations Intestinal malrotation Mixed hyperlipidemia Premature ventricular contractions Somnolence, daytime Surgical History History of bariatric surgery Gastric sleeve ([place]) History of left knee surgery History of right hip replacement History of ventral hernia repair x 2, supraumbilical, second time with mesh Family History Denies family history of Anesthesia complication Social History Smoking and tobacco status: never smoked Alcohol intake: current Alcohol intake frequency: 3 or more drinks per day Counseling given: Yes Household members: spouse Housing: House Data Anesthesia CBC & Chem 7: 09/13/20 05:58 09/13/20 05:58 Other Labs: Laboratory Results - last 48 hr 09/11/20 09/11/20 09/11/20 16:37 16:37 16:37 WBC 10.2 H RBC 2.71 L Hgb 9.9 L Hct 29.6 L MCV 109.2 H MCH 36.5 H MCHC 33.4 RDW 13.9 Plt Count 235 MPV 12.1 H Neut % (Auto) 84.3 Lymph % (Auto) 6.0 [place] % (Auto) 7.6 Eos % (Auto) 1.4 Baso % (Auto) 0.3 Neut # (Auto) 8.56 H Lymph # (Auto) 0.6 L [place] # (Auto) 0.8 Eos # (Auto) 0.1 Baso # (Auto) 0.0 Nucleated RBC % (auto) 0 Nucleated RBCs # 0.0 Sodium 135 L Potassium 3.8 Chloride 105 Carbon Dioxide 20 L Anion Gap 13.8 BUN 14 Creatinine 0.9 GFR Calculation 84.4 L Glucose 89 Estimat Average Glucose Hemoglobin A1c Calculated Osmolality 280 L Calcium 9.0 Iron 30 L TIBC 183 % Saturation 16.3 L Unsat Iron Binding 153 Total Bilirubin 0.5 AST 24 ALT 11 Alkaline Phosphatase 94 Total Protein 6.3 L Albumin 3.0 L Globulin 3.3 Triglycerides Cholesterol LDL Cholesterol, Calc Total VLDL Cholesterol HDL Cholesterol Cholesterol/HDL Ratio TSH 1.30 Urine Color Urine Appearance Urine pH Ur Specific [place] Urine Protein Urine Glucose (UA) Urine Ketones Urine Blood Urine Nitrate Urine Bilirubin Urine Urobilinogen Ur Leukocyte Esterase Urine RBC Urine WBC Ur Squamous Epith Cells Amorphous Sediment Urine Bacteria Urine Mucus 09/12/20 09/12/20 09/12/20 05:18 05:18 05:18 WBC 11.2 H RBC 2.61 L Hgb 9.6 L Hct 29.3 L MCV 112.3 H MCH 36.8 H MCHC 32.8 RDW 14.2 Plt Count 219 MPV 12.1 H Neut % (Auto) 85.7 Lymph % (Auto) 3.9 [place] % (Auto) 9.1 Eos % (Auto) 0.3 Baso % (Auto) 0.2 Neut # (Auto) 9.58 H Lymph # (Auto) 0.4 L [place] # (Auto) 1.0 H Eos # (Auto) 0.0 Baso # (Auto) 0.0 Nucleated RBC % (auto) 0 Nucleated RBCs # 0.0 Sodium 134 L Potassium 3.8 Chloride 104 Carbon Dioxide 19 L Anion Gap 14.8 BUN 13 Creatinine 0.9 GFR Calculation 84.4 L Glucose 88 Estimat Average Glucose 82 Hemoglobin A1c 4.5 Calculated Osmolality 278 L Calcium 8.6 Iron TIBC % Saturation Unsat Iron Binding Total Bilirubin 0.6 AST 17 ALT 10 Alkaline Phosphatase 87 Total Protein 6.0 L Albumin 3.1 L Globulin 2.9 Triglycerides 77 Cholesterol 129 LDL Cholesterol, Calc 54 Total VLDL Cholesterol 15 HDL Cholesterol 60 Cholesterol/HDL Ratio 2.15 TSH Urine Color Urine Appearance Urine pH Ur Specific [place] Urine Protein Urine Glucose (UA) Urine Ketones Urine Blood Urine Nitrate Urine Bilirubin Urine Urobilinogen Ur Leukocyte Esterase Urine RBC Urine WBC Ur Squamous Epith Cells Amorphous Sediment Urine Bacteria Urine Mucus 09/12/20 09/13/20 09/13/20 16:42 05:58 05:58 WBC 19.0 H RBC 2.71 L Hgb 10.0 L Hct 29.9 L MCV 110.3 H MCH 36.9 H MCHC 33.4 RDW 14.4 Plt Count 212 MPV 12.3 H Neut % (Auto) 87.9 Lymph % (Auto) 2.7 [place] % (Auto) 8.5 Eos % (Auto) 0.0 Baso % (Auto) 0.1 Neut # (Auto) 16.68 H Lymph # (Auto) 0.5 L [place] # (Auto) 1.6 H Eos # (Auto) 0.0 Baso # (Auto) 0.0 Nucleated RBC % (auto) 0 Nucleated RBCs # 0.0 Sodium 137 Potassium 3.8 Chloride 105 Carbon Dioxide 20 L Anion Gap 15.8 BUN 11 Creatinine 0.8 GFR Calculation 96.7 Glucose 108 Estimat Average Glucose Hemoglobin A1c Calculated Osmolality 284 L Calcium 8.3 L Iron TIBC % Saturation Unsat Iron Binding Total Bilirubin 0.7 AST 12 ALT 9 Alkaline Phosphatase 80 Total Protein 6.2 L Albumin 3.0 L Globulin 3.2 Triglycerides Cholesterol LDL Cholesterol, Calc Total VLDL Cholesterol HDL Cholesterol Cholesterol/HDL Ratio TSH Urine Color Yellow Urine Appearance Cloudy Urine pH 6 Ur Specific [place] 1.015 Urine Protein 2+ H Urine Glucose (UA) Norm Urine Ketones 1+ H Urine Blood 3+ H Urine Nitrate Positive H Urine Bilirubin Neg Urine Urobilinogen Norm Ur Leukocyte Esterase 2+ H Urine RBC 50-80 H Urine WBC Too numerous to cnt H Ur Squamous Epith Cells Rare Amorphous Sediment Not Reportable Urine Bacteria 4+ H Urine Mucus 3+ Cardiac Studies: Holter Monitor 10/13/19
[2020-09-13] MEDS: sodium chloride 0.9% 1,000 ML 30 ML IV (07:34)
--- NOTE | 2020-09-13 10:06 | P.OP_ITS ---
Operative Report Date of procedure: September 13, 2020 Pre-op Diagnosis: Fracture left basocervical femoral neck Post-op diagnosis: same Post-op Findings: Same Procedure Done: Open reduction internal fixation left hip Implants: Jing [place] 135 degree 2 hole side plate, 105mm lab screw, 8.0mm ASNIS screw Pathology: none sent Surgeon: Ramakrishna Glaser Anesthesia: General Estimated blood loss (mL): 100 Complications: None Findings: Patient had a basicervical fracture of the left femoral neck with minimal displacement Condition: stable Disposition: PACU Procedure: The patient was taken to the operating room. She was on Rocephin on the floor but was given 1 additional gram of Ancef for antibiotic prophylaxis and better gram-positive coverage. He was transferred to the fracture table with his left lower extremity in traction and internal rotation anatomically aligning the fracture. He was prepped and draped in the usual fashion. A timeout was performed. A 8 cm long incision was made just below the greater trochanter extending distally in line with the shaft. Dissection was carried through the skin subcutaneous tissue fascial kyrie revealing the vastus lateralis which was elevated up anteriorly with a scalpel blade and Diaz elevator. An ini tial guidepin was driven in the inferior central position for the leg screw. A second ASNIS pin was driven approximately 2 cm proximal in a more superior position to prevent rotation. An 8.0 mm Asnis screw was placed superiorly. Next the omega reamer was passed to a depth of 110 mm. 105 mm lag screw attached to the long barrel 2 hole 135 degree baseplate was then placed. It was secured to the femoral shaft with 2 bicortical screws with excellent purchase. Wounds were irrigated with saline. The vastus lateralis was closed with interrupted 0 Vicryl. The fascia kyrie was closed with running 1 strata fix suture. Subcutaneous fat was closed with 2-0 Vicryl. The skin was closed with a running 4 oh strata fix suture. Sterile dressings were applied. The patient was extubated and taken to recovery room in stable condition.
--- NOTE | 2020-09-13 12:47 | P.PN_ITS ---
Subjective Subjective: Interval history: Overnight patient was mildly confused pain occasions. On examination patient was awake and alert. T-max 100.1 last 24 hours. Has remained hemodynamically stable and currently saturating 96% on room air. Vitals/I&O/Wt Last Vital Signs Temp 98.1 F 09/13/20 11:23 Pulse 96 09/13/20 11:23 Resp 18 09/13/20 11:23 BP 133/85 09/13/20 11:23 Pulse Ox 93 09/13/20 11:23 09/12/20 09/13/20 09/13/20 22:59 06:59 14:59 Intake Total 869.167 / 976.667 290.833 / 1267.500 50 / 50 Output Total 200 / 700 0 / 0 Balance 669.167 / 276.667 290.833 / 567.500 50 / 50 Physical Exam Narrative: EXAM NARRATIVE: EXAM NARRATIVE: General: No acute distress, AO x3, states pain is controlled for now. HEENT: PERRLA, pupils bilaterally equal and reactive, pale Chest: Bilateral normal vesicular breath sounds, occasional rhonchi, equal good air entry bilaterally CVS: S1-S2 regular, no murmurs, no tachycardia, no gallops, no rubs Abdomen: Soft, nontender, no organomegaly, bowel sounds present, morbidly obese Neuro: No focal deficits, no facial deformity, AO x3, power 5/5 in all limbs Urinary Catheter Management^: Haq: Cath Placed During This Visit: yes Reason for Continuing Indwelling Catheter: Perioperative Use in Selected Surgeries Urinary Catheter Date of Insertion: 09/12/20 Urinary Catheter Time of Insertion: 16:34 Data : 09/13/20 05:58 09/13/20 05:58 A&P Assessment and plan (1) Closed fracture of left hip: Status: Acute (2) UTI (urinary tract infection): Status: Acute (3) Metabolic encephalopathy: Status: Acute (4) Anemia: Status: Acute (5) Alcohol abuse: Status: Acute (6) Benign essential hypertension with target blood pressure below 140/90: Status: Acute (7) Premature ventricular contractions: Status: Acute (8) Somnolence, daytime: Status: Acute (9) Abnormal nuclear stress test: Status: Acute (10) Mixed hyperlipidemia: Status: Acute Additional A&P Information Closed intertrochanteric fracture of the left hip: Plan for the OR today. Anticoagulation, perioperative antibiotics, pain medications, physical therapy as per Dr. Glaser. Will monitor hemoglobin postoperatively. Metabolic encephalopathy: Most likely secondary to UTI in setting of chronic alcohol abuse. Monitor CIWA score. Patient already started on ceftriaxone yesterday. Follow-up cultures, for now continue with ceftriaxone. Alcohol abuse: CIWA protocol. Thiamine, folic acid. Hypertension: Goal blood pressure less than 140/90 mmHg. Continue home dose of metoprolol for now. Hold off on nifedipine for now. We will continue to monitor blood pressures and can start medications if needed. Abnormal stress test: Last stress test in 2019 showed a small size reversible perfusion defect of apical lateral wall and fixed defect in apical inferior wall which may represent an area of small myocardial infarction and LAD territory. No active chest pain. Check lipid panel, HbA1c. Patient denies any angina equivalent symptoms at rest or exertion. Iron deficiency anemia: Start patient on IV iron supplementation. Day 3/5. Oral iron post IV on d/c Continue Flomax. Normal saline at 50 cc/h Full code. NPO, cardiac diet post OP Attestations Medical Necessity Statement*: Patient requires further hospitalization for postoperative care for intertrochanteric fracture of left hip, metabolic encephalopathy most likely secondary to UTI and chronic alcohol abuse Time Spent in Patient Care: Greater than 35 minutes (>than 50% of time spent in counselling and/or direct pt care on unit) . Coding Level of Care Code Acute Tubing Supervisor for g Fwd Diagnoses Closed fracture of left hip S72.002A UTI (urinary tract infection) N39.0 Metabolic encephalopathy G93.41 Anemia D64.9 Alcohol abuse F10.10 Benign essential hypertension with target blood pressure below 140/90 I10 Premature ventricular contractions I49.3 Somnolence, daytime R40.0 Abnormal nuclear stress test R94.39 Mixed hyperlipidemia E78.2
--- NOTE | 2020-09-13 14:12 | PC.NURSE ---
Notified Dr Cook 260 I just noticed that she has an order for MRSA swab nose. It was ordered on the . Just checking to see if you still want that since she was going to go home today? Just asking Read 09/13/20, 14:[address] Cook, No let it be 09/13/20, 14:07
[2020-09-13] MEDS: cefTRIAXone 1,000 MG in sodium chloride 0.9% (plus) 50 ML 100 MG IV (14:18)
--- NOTE | 2020-09-13 15:56 | ANE.PACU2 ---
Inpatient post-anesthesia follow up: Airway intact: Yes Vital signs: Temperature 98.6 F Pulse Rate [Left A pical] 74 Pulse Rate 89 Respiratory Rate 18 Blood Pressure [Ri ght Arm] 124/81 Blood Pressure 130/88 Pulse Oximetry 97 Oxygen Delivery Me thod Room Air Oxygen Flow Rate Fraction of Inspir ed Oxygen Hydration adequate: Yes Nausea and vomiting: No Pain level: 2 Mental status: Baseline
--- NOTE | 2020-09-13 17:55 | PM.PN ---
Subjective Subjective: Interval history: Complaints of pain not only in left hip but also left knee Vitals/I&O/Wt Last Vital Signs Temp 98.6 F 09/13/20 14:20 Pulse 89 09/13/20 15:19 Resp 18 09/13/20 15:19 BP 130/88 09/13/20 14:20 Pulse Ox 97 09/13/20 15:19 09/13/20 09/13/20 09/13/20 06:59 14:59 22:59 Intake Total 290.833 / 1267.500 100 / 100 Output Total 0 / 0 Balance 290.833 / 567.500 100 / 100 Physical Exam Narrative: EXAM NARRATIVE: left hip dressing clean and dry. Urinary Catheter Management^: Haq: Cath Placed During This Visit: yes Reason for Continuing Indwelling Catheter: Perioperative Use in Selected Surgeries Urinary Catheter Date of Insertion: 09/12/20 Urinary Catheter Time of Insertion: 16:34 Data : 09/13/20 05:58 09/13/20 05:58 A&P Assessment and plan (1) Postoperative state: Status: Acute (2) Basicervical fracture of neck of left femur: Patient with very poor effort in therapy complaining of pain all over. Will need nursing home placement. Status: Acute Attestations Medical Necessity Statement*: Okay for discharge to nursing home in a.m. Coding Level of Care Code Acute Clerk Television Production for [place] [facility] Diagnoses Postoperative state Z98.890 Basicervical fracture of neck of left femur S72.042A
[2020-09-13] MEDS: iron sucrose 200 MG in sodium chloride 0.9% (100 ml) 100 ML 220 MG IV (18:02)
[2020-09-13 22:23] LABS: Hematocrit 28.4 % (42.0-52.0); Hemoglobin 9.5 g/dL (11.7-16.6)
[2020-09-14] VITALS (12 sets, daily range): BP systolic 123–137; BP diastolic 69–84; PULSE 78–110; RESP 14–19; TEMP 36.6–37.1; O2SAT 93–100
[2020-09-14] MEDS: oxyCODONE 5 mg IR Tab/Cap PO ×3 (00:28→22:21)
[2020-09-14] MEDS: LORazepam 2 mg Tablet PO ×2 (01:18→22:21)
[2020-09-14 03:06] LABS: Basophils % 0.1 %; Hemoglobin 9.6 g/dL (11.7-16.6); Lymphocytes # 0.7 10^3/uL (0.8-4.8); Lymphocytes % 4.2 %; Mean Corpuscular Hemoglobin 36.2 pg (28.0-34.0); Mean Corpuscular Volume 113.2 fL (80-94); Mean Platelet Volume 12.1 fL (7.4-10.4); Monocytes # 1.3 10^3/uL (0.2-0.9); Monocytes % 8.2 %; Neutrophils # 13.73 10^3/uL (1.8-7.7); Neutrophils % 86.6 %; Nucleated Red Blood Cells % 0 %; Platelet Count 219 10^3/cmm (130-400); Red Blood Count 2.65 10^6/uL (4.1-5.3); Red Cell Distribution Width 14.3 % (12.1-15.1); White Blood Count 15.9 10^3/uL (4.0-10.0)
[2020-09-14 03:24] LABS: Alanine Aminotransferase 8 U/L (0-41); Albumin Level 2.7 g/dL (3.5-5.2); Alkaline Phosphatase 75 IU/L (40-130); Anion Gap 11.7 (5-19); Aspartate Amino Transferase 16 U/L (0-40); Blood Urea Nitrogen 16 mg/dL (8-23); Calcium 8.4 mg/dL (8.5-10.5); Carbon Dioxide 22 mmol/L (22-29); Chloride 106 mmol/L (98-107); Globulin 3.4 g/dL (1.3-4.6); Glomerular Filtration Rate 84.4 mL/min (90-130); Glucose 104 mg/dL (65-115); Osmolality Calculated 283 mOsm/kg (285-295); Potassium 3.7 mmol/L (3.5-5.1); Sodium 136 mmol/L (136-145); Total Bilirubin 0.5 mg/dL (0.15-1.2); Total Protein 6.1 g/dL (6.6-8.7)
[2020-09-14] MEDS: famotidine 20 mg/2 mL INJ IVP (05:06)
[2020-09-14] MEDS: metoprolol succinate ER (24 HR) 100 mg Tablet PO (06:27)
[2020-09-14] MEDS: multivitamin therapeutic Tablet 1 TAB PO (08:43)
[2020-09-14] MEDS: aspirin 325 mg EC Tablet PO (08:43)
[2020-09-14] MEDS: thiamine 100 mg Tablet PO (08:43)
[2020-09-14] MEDS: folic acid 1 mg Tablet PO (08:43)
--- NOTE | 2020-09-14 09:25 | PC.SOCIAL ---
IMM Update Pg. 2 of IMM updated and reviewed with patient. Signed, dated, and timed, copy provided.
--- NOTE | 2020-09-14 13:41 | PC.NURSE ---
Brush Polisher notified Dr Lopez 257 I placed a young catheter the day before surgery for retention. He has an order to remove young POD1. I know that is a standard surgery order. His urine is Milky and thick and had been that way since I placed the young. Can we leave the young in? Read 09/14/20, 13:[address] Lopez, Yes. Did we culture the urine? 09/14/20, 13:[address] Lopez, yes the day the catheter was placed we sent a culture. It was placed on Sunday Read 09/14/20, 13:[address] Lopez, Ok Thanks 09/14/20, 13:41
--- NOTE | 2020-09-14 13:46 | PC.NURSE ---
patient pulled IV out and pulled J loop apart. patient pulled telemetry off and tried getting out of chair by self. Patient was assisted to bed by gag writer and another nurse. call light within reach, bed alarm on and table within reach.
--- NOTE | 2020-09-14 14:15 | PM.DCS ---
Discharge Providers Date of Admission: 09/11/20 15:52 Date of Discharge: September 14, 2020 Attending Provider at Admission: Ramakrishna Glaser MD Attending Provider at Discharge: Ramakrishna Glaser MD Primary Care Provider: Mallika Ceja MD Diagnoses at Discharge Discharge Diagnosis (1) Postoperative state: Status: Acute (2) Basicervical fracture of neck of left femur: Status: Acute Reason for Visit Reason for Visit: fall Hospital Course Hospital Course Mr. Hardy is a 65-year-old male who fell with resulting left nondisplaced basicervical femoral neck fracture. He was admitted to the hospital on 07/11/2021. He underwent open reduction and internal fixation of the left hip on 07/13/2021. He remained hemodynamically stable throughout his hospitalization. He had no notable decrease in his hemoglobin from the fracture or surgery. He made slow progress with physical therapy due to right lower extremity pain. After discussion it was agreed that half-way placement will be best to allow him more time for therapy before he is discharged home. He was managed with aspirin and sequential compression dressings for DVT prophylaxis. Physical Exam Narrative: EXAM NARRATIVE: On the day of discharge the hip incision was clean. The incision was free of drainage. They had no particular swelling about the thigh or distal. No distal neurovascular deficits were noted. Urinary Catheter Management^: Haq: Cath Placed During This Visit: yes Reason for Continuing Indwelling Catheter: Acute Urinary Retention or Obstruction Urinary Catheter Date of Insertion: 09/12/20 Urinary Catheter Time of Insertion: 16:34 Discharge Data Data Completed and Pending: Completed Studies During Hospitalization Category Date Time Status CT hip LT wo con* [id number] Stat Cat Scan 09/11/20 13:46 Completed XR chest 1V buffy ble [id number] Routine Exams 09/11/20 17:23 Completed XR hip LT 2-3V wo /w pel* [id number] Rout ine Exams 09/13/20 Completed XR hip LT 2-3V wo /w pel* [id number] Stat Exams 09/11/20 12:33 Completed Pending at discharge Category Date Time Status Blood Culture Sta t Lab 09/13/20 22:03 Results Coronavirus Test [facility] ne Lab 09/11/20 14:46 Received Labs from last 24 hours 09/14/20 09/14/20 09/13/20 02:50 02:50 22:03 WBC 15.9 H RBC 2.65 L Hgb 9.6 L 9.5 L Hct 30.0 L 28.4 L MCV 113.2 H MCH 36.2 H MCHC 32.0 RDW 14.3 Plt Count 219 MPV 12.1 H Neut % (Auto) 86.6 Lymph % (Auto) 4.2 [place] % (Auto) 8.2 Eos % (Auto) 0.0 Baso % (Auto) 0.1 Neut # (Auto) 13.73 H Lymph # (Auto) 0.7 L [place] # (Auto) 1.3 H Eos # (Auto) 0.0 Baso # (Auto) 0.0 Nucleated RBC % (a uto) 0 Nucleated RBCs # 0.0 Sodium 136 Potassium 3.7 Chloride 106 Carbon Dioxide 22 Anion Gap 11.7 BUN 16 Creatinine 0.9 GFR Calculation 84.4 L Glucose 104 Calculated Osmolal ity 283 L Calcium 8.4 L Total Bilirubin 0.5 AST 16 ALT 8 Alkaline Phosphata se 75 Total Protein 6.1 L Albumin 2.7 L Globulin 3.4 Vitals: Last Vital Signs Temp 98.4 F 09/14/20 11:07 Pulse 110 H 09/14/20 11:07 Resp 18 09/14/20 11:07 BP 123/84 09/14/20 11:07 Pulse Ox 100 09/14/20 11:07 Discharge Plan Discharge Patient Disposition: Home Condition: Stable Prescriptions: New oxycodone 5 mg Tablet 5 mg PO Q3H PRN (Reason: Pain) 7 Days Qty: 30 RF: 0 aspirin 325 mg Tablet,Delayed Release (Dr/Ec) 325 mg PO DAILY 30 Days RF: 0 Continued ibuprofen 800 mg tablet 800 mg PO Q8H PRN (Reason: pain) RF: 0 tamsulosin 0.4 mg Capsule 0.4 mg PO QAM PRN (Reason: unknown) RF: 0 nifedipine 60 mg tablet extended release 24hr 60 mg PO DAILY@07 RF: 0 metoprolol succinate 100 mg tablet extended release 24 hr 100 mg PO DAILY@07 RF: 0 Discharge Orders: Discharge Order (Routine); Ordered 09/14/20 Ordered By: Ramakrishna Glaser Referrals: Mallika Ceja MD [Primary Care Provider] - Ramakrishna Glaser MD [Physician] - 1 month Discharge Diet: Advance as tolerated Discharge Activity: Limit activity as instructed Activity Restrictions/Additional Instructions: Weight-bear as tolerated left lower extremity Change dressing as needed for drainage Okay to shower or sponge bathe Discharge Attestations Time Spent in Discharge Care*: other Status at Discharge: Cognitive status at discharge: cognitively intact, Behavioral status at discharge: cooperative, Quality Metrics Clinical Quality Measures During this hospital stay, did patient experience: None Coding Level of Care Code Acute Cover Making Machine Operator for [place] Diagnoses Postoperative state Z98.890 Basicervical fracture of neck of left femur S72.860S
[2020-09-14] MEDS: cefTRIAXone 1,000 MG in sodium chloride 0.9% (plus) 50 ML 100 MG IV (15:01)
[2020-09-14] MEDS: sodium chloride 0.9% 1,000 ML 50 ML IV (15:02)
[2020-09-14] MEDS: famotidine 20 mg Tablet PO (18:30)
--- NOTE | 2020-09-14 19:24 | PM.PN ---
Subjective Subjective: Interval history: Doing okay. Resting. The pain is well controlled. No anxiety or tremors. Medications: Reviewed: Yes Vitals/I&O/Wt Last Vital Signs Temp 98.8 F 09/14/20 15:51 Pulse 94 09/14/20 15:51 Resp 14 09/14/20 15:51 BP 137/71 09/14/20 15:51 Pulse Ox 96 09/14/20 15:51 09/14/20 09/14/20 09/14/20 06:59 14:59 22:59 Intake Total 1150 / 1150 150 / 1300 Output Total 400 / 700 Balance -400 / 1596.605 6961 / 1150 150 / 1300 Physical Exam Narrative: EXAM NARRATIVE: Awake and alert. Oriented. No acute distress. Skin is warm and dry. Moist membranes. Eyes Alicia, extraocular muscles are intact Normal speech Neck supple. No JVD Lungs clear. Heart S1, S2, regular Abdomen soft, nontender, bowel sounds are present Extremities no calf tenderness or cyanosis bilaterally. Urinary Catheter Management^: Haq: Cath Placed During This Visit: yes Reason for Continuing Indwelling Catheter: Acute Urinary Retention or Obstruction Urinary Catheter Date of Insertion: 09/12/20 Urinary Catheter Time of Insertion: 16:34 Data : 09/14/20 02:50 09/14/20 02:50 Micro: Microbiology 09/12/20 16:42 Urine Culture - Final Urine,Clean Catch 09/13/20 22:03 Blood Culture - Preliminary Blood SPECIMEN COLLECTED 09/13/20 22:03 Blood Culture - Preliminary Blood SPECIMEN COLLECTED A&P Additional A&P Information Left hip intertrochanteric fracture. Status post ORIF by Dr. Glaser. Doing well. Waiting for placement to acute rehab facility. Continue PT OT. Continue pain management. DVT prophylaxis. He is on aspirin per Dr. Fleming Acute metabolic encephalopathy suspected to be secondary to UTI. Resolved. UTI. Continue Rocephin. Urine is becoming more clear according to the nursing staff. Cultures are pending. Anemia suspected to be secondary to expected acute blood loss secondary to #1. Receiving iron replacement. Continue monitoring. Stable. EtOH. Continue thiamine replacement. No evidence of withdrawals. CIWA protocol. Hypertension. Well-controlled. Continue current management. Thanks so much for allowing me to participate in treatment of this patient. Attestations Medical Necessity Statement*: Pending placement. Coding Level of Care Code Acute Impregnator And Drier for [place]
[2020-09-14] MEDS: iron sucrose 200 MG in sodium chloride 0.9% (100 ml) 100 ML 220 MG IV (21:26)
[2020-09-15] VITALS (7 sets, daily range): BP systolic 130–156; BP diastolic 70–96; PULSE 85–123; RESP 18–20; TEMP 36.6–37.1; O2SAT 90–99
[2020-09-15] MEDS: LORazepam 2 mg/mL INJ 1 mL IVP ×6 (02:45→23:01)
[2020-09-15 05:18] LABS: Basophils % 0.2 %; Eosinophils # 0.1 10^3/uL (0.0-0.8); Eosinophils % 0.9 %; Hematocrit 29.3 % (42.0-52.0); Hemoglobin 9.5 g/dL (11.7-16.6); Lymphocytes # 0.6 10^3/uL (0.8-4.8); Lymphocytes % 4.8 %; Mean Corpuscular HGB Conc 32.4 g/dL (30.0-36.0); Mean Corpuscular Hemoglobin 35.7 pg (28.0-34.0); Mean Corpuscular Volume 110.2 fL (80-94); Monocytes # 1.3 10^3/uL (0.2-0.9); Monocytes % 10.2 %; Neutrophils % 83.1 %; Nucleated Red Blood Cells % 0 %; Platelet Count 236 10^3/cmm (130-400); Red Blood Count 2.66 10^6/uL (4.1-5.3); Red Cell Distribution Width 14.1 % (12.1-15.1); White Blood Count 12.5 10^3/uL (4.0-10.0)
[2020-09-15 05:40] LABS: Albumin Level 2.7 g/dL (3.5-5.2); Anion Gap 15.4 (5-19); Blood Urea Nitrogen 17 mg/dL (8-23); Calcium 8.7 mg/dL (8.5-10.5); Carbon Dioxide 19 mmol/L (22-29); Chloride 107 mmol/L (98-107); Glomerular Filtration Rate 96.7 mL/min (90-130); Glucose 74 mg/dL (65-115); Phosphorus 3.1 mg/dL (2.5-4.5); Potassium 3.4 mmol/L (3.5-5.1); Sodium 138 mmol/L (136-145)
[2020-09-15 05:41] LABS: Magnesium 1.8 mg/dL (1.7-2.3)
[2020-09-15 05:57] LABS: Folate Level 15.2 ng/mL (4.5-32.2); Vitamin B12 409 pg/mL (232-1245)
[2020-09-15] MEDS: famotidine 20 mg Tablet PO ×2 (06:39→13:37)
[2020-09-15] MEDS: thiamine 100 mg Tablet PO (07:51)
[2020-09-15] MEDS: aspirin 325 mg EC Tablet PO (07:51)
[2020-09-15] MEDS: folic acid 1 mg Tablet PO (07:52)
[2020-09-15] MEDS: multivitamin therapeutic Tablet 1 TAB PO (07:52)
--- NOTE | 2020-09-15 08:04 | PC.NURSE ---
AM NOTE UPON ENTERING ROOM PATIENT COMPLETELY NAKED - TELE OFF - PULLING AT IV - VISIBLY SHAKING - SEE CIWA - STATES IM AT SCHOOL WITH 2 LADIES - ATTEMPTED REORIENTATION - UNABLE - QUESTIONED PT TO AMOUNT AND TYPE OF ALCOHOL INTAKE - PT STATES I DON'T DRINK - I JUST GO TO SCHOOL REDRESSED PT WITH LINEN CHANGE - BED CHECK SET- WILL MONITOR
[2020-09-15 08:45] LABS: Coronavirus Test Green County Not Detected
--- NOTE | 2020-09-15 09:39 | PC.NURSE ---
CIWA CIWA SCORE CURRENTLY 10 - IVP ATIVAN 2MG PER PROTOCOL GIVEN - PT CONTINUES TO BE RESTLESS, AGITATED, PULLING AT GOWN AND IV TUBING - BED CHECK REMAINS ON
[2020-09-15] MEDS: lidocaine 1% 5 ML in potassium chloride premix 100 ML 50 ML IV (10:29)
--- NOTE | 2020-09-15 12:10 | PC.NURSE ---
DR RJ DE LA ROSA PREVIOUSLY IN ROOM - VERBAL ORDER GIVEN TO NOT GIVEN ATIVAN AT THIS TIME - TO CHANGE ORDERS - WA - 7 BED CHECK ON - WILL MONITOR
--- NOTE | 2020-09-15 12:35 | P.PN_ITS ---
Subjective Subjective: Interval history: No complaints. Arouses to voice but will not coherently complete a response Vitals/I&O/Wt Last Vital Signs Temp 98.3 F 09/15/20 11:46 Pulse 97 09/15/20 11:46 Resp 18 09/15/20 11:46 BP 147/89 09/15/20 11:46 Pulse Ox 97 09/15/20 11:46 09/14/20 09/15/20 09/15/20 22:59 06:59 14:59 Intake Total 260 / 1410 100 / 100 Output Total 650 / 650 Balance 260 / 1410 -650 / 760 100 / 100 Physical Exam Narrative: EXAM NARRATIVE: Left hp dressing clean and dry Urinary Catheter Management^: Haq: Cath Placed During This Visit: yes Reason for Continuing Indwelling Catheter: Acute Urinary Retention or Obstr uction Urinary Catheter Date of Insertion: 09/12/20 Urinary Catheter Time of Insertion: 16:34 Data : 09/15/20 03:10 09/15/20 03:10 Micro: Microbiology 09/13/20 22:03 Blood Culture - Preliminary Blood NEGATIVE TO DATE 09/13/20 22:03 Blood Culture - Preliminary Blood NEGATIVE TO DATE 09/12/20 16:42 Urine Culture - Final Urine,Clean Catch A&P Assessment and plan (1) Postoperative state: No acute ortho issues. Mental status limiting progress with therapy. 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
[2020-09-15] MEDS: cefTRIAXone 1,000 MG in sodium chloride 0.9% (plus) 50 ML 100 MG IV (13:37)
--- NOTE | 2020-09-15 13:38 | PM.PN ---
Subjective Subjective: Interval history: The patient was agitated and restless earlier. Was assessed by the nurse to have significant withdrawals with tremors. Received couple of doses of lorazepam. Currently sedated and sleeping comfortably. Arousable. No other significant events. No diarrhea. No nausea or vomiting. No chest pain or shortness of breath. Medications: Reviewed: Yes Medication Review Details: Generic Name Dose Route Start Last Admin Trade Name Freq PRN Reason Stop Dose Admin Aspirin 325 mg 09/14/20 09:00 09/15/20 07:51 Aspirin 325 Mg E c Tablet PO 325 mg DAILY ARNAV Administration Famotidine 20 mg 09/14/20 18:00 09/15/20 06:39 Famotidine 20 Mg Tablet PO 20 mg Q12H ANRAV Administration Folic Acid 1 mg 09/12/20 09:00 09/15/20 07:52 Folic Acid 1 Mg Tablet PO 1 mg DAILY ARNAV Administration Iron Sucrose 200 m g/ Sodium 110 mls @ 220 mls /hr 09/11/20 18:45 09/14/20 22:15 Chloride IV 09/15/20 19:14 Infused Q24H ARNAV Infusion Ceftriaxone Sodium 1,000 mg/ 50 mls @ 100 mls/ hr 09/12/20 14:30 09/14/20 17:40 Sodium Chloride IV Infused Q24H ARNAV Infusion Protocol Lorazepam 2 mg 09/15/20 02:17 09/15/20 09:34 Lorazepam 2 Mg/M l Inj 1 Ml IVP 2 mg PRN PRN Administration WITHDRAWAL Protocol Metoprolol Succina te 100 mg 09/12/20 07:00 09/15/20 06:39 Metoprolol Succi ana laura Er (24 Hr) 10 0 Mg Tablet PO 100 mg DAILY@07 ARNAV Administration Multivitamins Ther apeutic 1 tab 09/12/20 09:00 09/15/20 07:52 Multivitamin The rapeutic Tablet PO 1 tab DAILY ARNAV Administration Thiamine Mononitra te 100 mg 09/12/20 09:00 09/15/20 07:51 Thiamine 100 Mg Tablet PO 100 mg DAILY ARNAV Administration Vitals/I&O/Wt Last Vital Signs Temp 98.3 F 09/15/20 11:46 Pulse 97 09/15/20 11:46 Resp 18 09/15/20 11:46 BP 147/89 09/15/20 11:46 Pulse Ox 97 09/15/20 11:46 09/14/20 09/15/20 09/15/20 22:59 06:59 14:59 Intake Total 260 / 1410 1160 / 1160 Output Total 650 / 650 Balance 260 / 1410 -650 / 760 1160 / 1160 Physical Exam Narrative: EXAM NARRATIVE: Lethargic. Oriented. No acute distress. Skin is warm and dry. Moist membranes. Eyes Alicia, extraocular muscles are intact Neck supple. No JVD Lungs clear. Heart S1, S2, regular Abdomen soft, nontender, bowel sounds are present Extremities no calf tenderness or cyanosis bilaterally. No tremors currently. Urinary Catheter Management^: Haq: Cath Placed During This Visit: yes Reason for Continuing Indwelling Catheter: Acute Urinary Retention or Obstruction Urinary Catheter Date of Insertion: 09/12/20 Urinary Catheter Time of Insertion: 16:34 Data : 09/15/20 03:10 09/15/20 03:10 Micro: Microbiology 09/13/20 22:03 Blood Culture - Preliminary Blood NEGATIVE TO DATE 09/13/20 22:03 Blood Culture - Preliminary Blood NEGATIVE TO DATE 09/12/20 16:42 Urine Culture - Final Urine,Clean Catch A&P Assessment and plan (1) Closed fracture of left hip: Status: Acute (2) UTI (urinary tract infection): Status: Acute (3) Metabolic encephalopathy: Status: Acute (4) Anemia: Status: Acute (5) Alcohol abuse: Status: Acute (6) Benign essential hypertension with target blood pressure below 140/90: Status: Acute (7) Premature ventricular contractions: Status: Acute (8) Somnolence, daytime: Status: Acute (9) Abnormal nuclear stress test: Status: Acute (10) Mixed hyperlipidemia: Status: Acute Additional A&P Information Left hip intertrochanteric fracture. Status post ORIF by Dr. Glaser. Doing well. Waiting for placement to acute rehab facility. Continue PT OT. Continue pain management. DVT prophylaxis. He is on aspirin per Dr. Fleming Acute metabolic encephalopathy suspected to be secondary to UTI. Resolved. UTI. Continue Rocephin. Cultures are ordered yesterday. First sample was a contamination. Anemia suspected to be secondary to expected acute blood loss secondary to #1. Receiving iron replacement. Continue monitoring. Stable. Positive fecal occult blood test. Not sure what source could be. Did not have any reported vomiting to explain it by Elidia-Worley tears. He has iron deficiency. This could indicate chronic character of blood loss. Definitely will need GI evaluation. Currently hemodynamically stable. No evidence of active or significant bleeding. Will consider inpatient or outpatient evaluation. EtOH. Continue thiamine replacement. CIWA protocol was used last night due to withdrawal symptoms. We will start Librium to minimize the use of lorazepam. Ordering pulse oximetry to monitor for respiratory depression. Discussed with the nursing staff Hypokalemia. Replace and monitor Hypertension. Well-controlled. Continue current management. Thanks so much for allowing me to participate in treatment of this patient. Attestations Medical Necessity Statement*: Still working on his EtOH withdrawal symptoms, anemia and placement needs. 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
--- NOTE | 2020-09-15 13:51 | PC.NURSE ---
1:1 1:[address] DE LA ROSA PT PULLED OUT RIGHT IV - NOTED RIGHT HAND TO HAVE 2+ EDEMA - REPLACED IV #22 TO LEFT ARM - CONSTANTLY PULLING AT IV AND CALI CATHETER - STAT LOCKED RIPPED OFF PER PATIENT - SWINGING ARMS AROUND STATES ITS 1960 - MUMBLING -
--- NOTE | 2020-09-15 15:33 | PC.NURSE ---
1:1 1:1 AT SIDE - PT IS CALM AT PRESENT TIME -REQUIRES FREQUENT REORIENTATION AND REMINDERS NOT TO PULL IV'S
[2020-09-15] MEDS: chlordiazePOXIDE 10 mg Capsule 20 MG PO ×2 (15:44→21:30)
--- NOTE | 2020-09-15 15:47 | PC.NURSE ---
LIBRIUM PO LIBRIUM IN WITH MULTIPLE TIMES OF REDIRECTING PATIENT TO SWALLOW PILL - WILL OPEN EYES - IMMEDIATELY STARTS TO PULL AT IV TUBES, CATHETER AND CLOTHING - WILL HOLD ON IV ATIVAN AT PRESENT TIME DUE TO DR PATEL PREVIOUS REQUEST
--- NOTE | 2020-09-15 17:27 | PC.RESP ---
Respiratory placed continuous pulse ox on pt, pt would not be still and immediately started to pick pulse ox off and was pulling at the cord. Pulse ox was removed for pt safety
--- NOTE | 2020-09-15 18:13 | PC.NURSE ---
PM NOTE 1:1 REMAINS AT SIDE - PT REMAINS AGITATED AND PULLING AT GOWN AND IV WHEN AWAKE UNABLE TO STATE PLACE, DATE OR SITUATION
[2020-09-15] MEDS: iron sucrose 200 MG in sodium chloride 0.9% (100 ml) 100 ML 220 MG IV (18:17)
--- NOTE | 2020-09-15 20:34 | PC.NURSE ---
CIWA ASSESSMENT: THIS NURSE ALONG WITH PRECEPTOR PERFORMED SHIFT ASSESMENT ALONG WITH A CIWA ASSESSMENT, PATIENT SCORED A 26. ATIVAN IVP 2MG WAS PULLED, GIVEN TO Eduin CHILDERS RN WHO ADMINISTERED ACCORDING TO CIWA PROTOCOL. WILL REASSESS IN 1 HOUR.
[2020-09-16] MEDS: LORazepam 2 mg/mL INJ 1 mL IVP (00:16)
[2020-09-16 03:03] LABS: Magnesium 1.9 mg/dL (1.7-2.3)
[2020-09-16 03:10] LABS: Basophils % 0.2 %; Eosinophils # 0.1 10^3/uL (0.0-0.8); Eosinophils % 0.7 %; Hematocrit 25.6 % (42.0-52.0); Hemoglobin 8.2 g/dL (11.7-16.6); Lymphocytes # 0.5 10^3/uL (0.8-4.8); Lymphocytes % 5.4 %; Mean Corpuscular Volume 112.3 fL (80-94); Mean Platelet Volume 12.6 fL (7.4-10.4); Monocytes # 1.2 10^3/uL (0.2-0.9); Monocytes % 12.9 %; Neutrophils # 7.71 10^3/uL (1.8-7.7); Neutrophils % 80.1 %; Nucleated Red Blood Cells % 0 %; Platelet Count 224 10^3/cmm (130-400); Red Blood Count 2.28 10^6/uL (4.1-5.3); Red Cell Distribution Width 14.2 % (12.1-15.1); White Blood Count 9.6 10^3/uL (4.0-10.0)
[2020-09-16 03:40] VITALS: BP 149/86; PULSE 112; RESP 18; TEMP 37.1; O2SAT 97
[2020-09-16 03:49] LABS: Albumin Level 2.3 g/dL (3.5-5.2); Anion Gap 16.8 (5-19); Blood Urea Nitrogen 15 mg/dL (8-23); Calcium 8.8 mg/dL (8.5-10.5); Carbon Dioxide 19 mmol/L (22-29); Chloride 111 mmol/L (98-107); Glomerular Filtration Rate 112.8 mL/min (90-130); Glucose 91 mg/dL (65-115); Phosphorus 3.7 mg/dL (2.5-4.5); Potassium 3.8 mmol/L (3.5-5.1); Sodium 143 mmol/L (136-145)
[2020-09-16 08:00] VITALS: BP 141/89; PULSE 120; RESP 18; TEMP 37.4; O2SAT 98
[2020-09-16] MEDS: LORazepam 2 mg/mL INJ 1 mL IM (08:04)
[2020-09-16] MEDS: folic acid 1 mg Tablet PO (10:14)
[2020-09-16] MEDS: thiamine 100 mg Tablet PO (10:14)
[2020-09-16] MEDS: aspirin 325 mg EC Tablet PO (10:14)
[2020-09-16] MEDS: multivitamin therapeutic Tablet 1 TAB PO (10:14)
[2020-09-16] MEDS: chlordiazePOXIDE 10 mg Capsule 20 MG PO (10:37)
[2020-09-16 10:55] LABS: Urine Appearance Clear (CLEAR); Urine Color Yellow (Yellow); pH Urine 6 (5-7)
[2020-09-16 10:56] LABS: Add Urine Culture? Yes; Add Urine Microscopic? YES; Bacteria Urine 1+ /hpf; Bilirubin Urine Neg (Negative); Blood Urine Neg (Negative); Glucose Urine UA Norm (Normal); Hyaline Casts Urine 0-4 /lpf; Ketones Urine 1+ (Negative); Leukocyte Esterase Urine Trace (Negative); Mucus Urine TRACE /hpf; Nitrate Urine Negative (Negative); Protein Urine Neg (Negative); RBC Urine 0-4 /hpf (0-2); Squamous Epithelial Cell Urine 0-4 /hpf (0-5); Urobilinogen Urine 1 mg/dL (Negative); WBC Urine 55-80 /hpf (0-5)
[2020-09-16 12:00] VITALS: BP 151/84; PULSE 116; RESP 20; TEMP 36.9; O2SAT 98
--- NOTE | 2020-09-16 13:56 | XRR_ITS ---
PROCEDURE INFORMATION: Exam: XR Right Forearm Exam date and time: 09/16/2020 2:31 PM Age: 65 years old Clinical indication: Injury or trauma; Fall; Blunt trauma (contusions or hematomas); Arm, lower; Right; Additional info: Pain, swelling, possible fall, PT AMS TECHNIQUE: Imaging protocol: XR Right forearm. Views: 2 views. COMPARISON: No relevant prior studies available. FINDINGS: Bones/joints: The radius and ulna are intact. No acute fracture or dislocation.No destructive osseous lesions are identified. Soft tissues: No radiopaque foreign body identified. XR/XR forearm RT 2V [id number] IMPRESSION: No acute fracture or dislocation.
--- NOTE | 2020-09-16 13:56 | XRR_ITS ---
PROCEDURE INFORMATION: Exam: XR Right Shoulder Exam date and time: 09/16/2020 2:31 PM Age: 65 years old Clinical indication: Injury or trauma; Fall; Blunt trauma (contusions or hematomas); Shoulder; Right; Additional info: Pain, swelling, possible fall, PT AMS TECHNIQUE: Imaging protocol: XR Right shoulder. Views: 2 or more views. COMPARISON: No relevant prior studies available. FINDINGS: Bones/joints: There is degenerative joint space narrowing of the glenohumeral articulation. Degenerative osseous hypertrophy is seen at the acromioclavicular joint. No shoulder dislocation. No acute fracture identified. Soft tissues: No abnormal soft tissue calcifications. XR/XR shoulder RT min 2V* [id number] IMPRESSION: 1. No acute fracture or dislocation. 2. Degenerative changes of the shoulder.
--- NOTE | 2020-09-16 13:56 | XRR_ITS ---
PROCEDURE INFORMATION: Exam: XR Right Hand Exam date and time: 09/16/2020 2:31 PM Age: 65 years old Clinical indication: Injury or trauma; Fall; Blunt trauma (contusions or hematomas); Hand; Right; Additional info: Pain swelling, possible fall. PT AMS TECHNIQUE: Imaging protocol: XR Right hand. Views: 1 or 2 views. COMPARISON: No relevant prior studies available. FINDINGS: Bones/joints: No acute fracture is seen. No dislocation. Soft tissues: Soft tissue swelling is noted at the dorsum of the hand. XR/XR hand RT 2V [id number] IMPRESSION: 1. No acute fracture or dislocation. 2. Soft tissue swelling.
--- NOTE | 2020-09-16 13:59 | P.PN_ITS ---
Subjective Subjective: Interval history: The patient is still lethargic but more arousable. No agitation. Refused his pills, did not take Librium. Was given lorazepam to control withdrawal symptoms. Complaining of pain in the right upper extremity. No chest pain, shortness of breath, cough, fever or chills, nausea or vomiting. Medications: Reviewed: Yes Medication Review Details: Generic Name Dose Route Start Last Admin Trade Name Freq PRN Reason Stop Dose Admin Aspirin 325 mg 09/14/20 09:00 09/16/20 10:14 Aspirin 325 Mg E c Tablet PO 325 mg DAILY ARNAV Administration Chlordiazepoxide 20 mg 09/15/20 13:45 09/16/20 10:37 Chlordiazepoxide 10 Mg Capsule PO 20 mg Q8H ARNAV Administration Famotidine 20 mg 09/14/20 18:00 09/16/20 06:53 Famotidine 20 Mg Tablet PO Not Given Q12H ARNAV Folic Acid 1 mg 09/12/20 09:00 09/16/20 10:14 Folic Acid 1 Mg Tablet PO 1 mg DAILY ARNAV Administration Ceftriaxone Sodium 1,000 mg/ 50 mls @ 100 mls/ hr 09/12/20 14:30 09/15/20 15:42 Sodium Chloride IV Infused Q24H ARNAV Infusion Protocol Lorazepam 2 mg 09/15/20 02:17 09/16/20 08:04 Lorazepam 2 Mg/M l Inj 1 Ml IM 2 mg Q4H PRN Administration ALCOWD Protocol Lorazepam 2 mg 09/15/20 02:17 09/16/20 00:16 Lorazepam 2 Mg/M l Inj 1 Ml IVP 2 mg PRN PRN Administration WITHDRAWAL Protocol Metoprolol Succina te 100 mg 09/12/20 07:00 09/16/20 07:00 Metoprolol Succi ana laura Er (24 Hr) 10 0 Mg Tablet PO Not Given DAILY@07 [facility] Multivitamins Ther apeutic 1 tab 09/12/20 09:00 09/16/20 10:14 Multivitamin The rapeutic Tablet PO 1 tab DAILY ARNAV Administration Thiamine Mononitra te 100 mg 09/12/20 09:00 09/16/20 10:14 Thiamine 100 Mg Tablet PO 100 mg DAILY ARNAV Administration Vitals/I&O/Wt Last Vital Signs Temp 98.5 F 09/16/20 12:00 Pulse 116 H 09/16/20 12:00 Resp 20 H 09/16/20 12:00 BP 151/84 09/16/20 12:00 Pulse Ox 98 09/16/20 12:00 09/15/20 09/16/20 09/16/20 22:59 06:59 14:59 Intake Total 265 / 1425 120 / 120 Output Total 650 / 650 600 / 1250 Balance -385 / 775 -600 / 175 120 / 120 Physical Exam Narrative: EXAM NARRATIVE: Lethargic. Oriented. No acute distress. Skin is warm and dry. Moist membranes. Eyes Alicia, extraocular muscles are intact Neck supple. No JVD Lungs clear. Heart S1, S2, regular Abdomen soft, nontender, bowel sounds are present Extremities no calf tenderness or cyanosis bilaterally. 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 is tender when moving, there is some swelling in the wrist and elbow area, tender to touch. Urinary Catheter Management^: Haq: Cath Placed During This Visit: yes Reason for Continuing Indwelling Catheter: Required Immobilization for Trauma or Surgery or Anesthesia Urinary Catheter Date of Insertion: 09/12/20 Urinary Catheter Time of Insertion: 16:34 Data : 09/16/20 02:05 09/16/20 02:05 Micro: Microbiology 09/14/20 15:10 Urine Culture - Preliminary Urine Catheterized Enterococcus species A&P Assessment and plan (1) Closed fracture of left hip: Status: Acute (2) UTI (urinary tract infection): Status: Acute (3) Metabolic encephalopathy: Status: Acute (4) Anemia: Status: Acute (5) Alcohol abuse: Status: Acute (6) Benign essential hypertension with target blood pressure below 140/90: Status: Acute (7) Premature ventricular contractions: Status: Acute (8) Somnolence, daytime: Status: Acute (9) Abnormal nuclear stress test: Status: Acute (10) Mixed hyperlipidemia: Status: Acute Additional A&P Information Left hip intertrochanteric fracture. Status post ORIF by Dr. Glaser. Waiting for placement to acute rehab facility. Continue PT OT. Continue pain management. 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 pain, swelling. Will order x-rays to evaluate for possible fracture. DVT prophylaxis. He is on aspirin per Dr. Bernadette RUSSO. Continue Rocephin. Cultures are ordered yesterday. First sample was a contamination. Anemia suspected to be secondary to expected acute blood loss secondary to #1. Receiving iron replacement. Continue monitoring. Stable. Positive fecal occult blood test. Not sure what source could be. Did not have any reported vomiting to explain it by Elidia-Worley tears. He has iron deficiency. This could indicate chronic character of blood loss. Definitely will need GI evaluation. Currently hemodynamically stable. No evidence of active or significant bleeding. Discussed with Dr. Harvey. Will undergo GI evaluation after discharge. EtOH. Continue thiamine replacement. CIWA protocol was used last night due to withdrawal symptoms. Continue scheduled Librium. Ordering pulse oximetry to monitor for respiratory depression. Discussed with the nursing staff. Hypokalemia. Replace and monitor Hypertension. Well-controlled. Continue current management. Thanks so much for allowing me to participate in treatment of this patient. Attestations Medical Necessity Statement*: Still having alcohol withdrawal symptoms. Continue current management and close monitoring. 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
[2020-09-16 15:37] VITALS: BP 165/76; PULSE 104; RESP 20; TEMP 37.1; O2SAT 90
--- NOTE | 2020-09-16 16:16 | PC.NURSE ---
IV We was unable to give iv excess until this time due to patient being a hard stick.
[2020-09-16] MEDS: cefTRIAXone 1,000 MG in sodium chloride 0.9% (plus) 50 ML 100 MG IV (16:18)
[2020-09-16] MEDS: famotidine 20 mg Tablet PO (17:48)
[2020-09-16 19:57] VITALS: BP 150/105; PULSE 76; RESP 18; TEMP 36.6; O2SAT 91
[2020-09-17] VITALS: BP 139/88; PULSE 90; RESP 18; TEMP 36.6; O2SAT 91
[2020-09-17 02:29] LABS: Basophils # 0.1 10^3/uL (0.0-0.1); Basophils % 0.4 %; Eosinophils # 0.1 10^3/uL (0.0-0.8); Eosinophils % 0.4 %; Hematocrit 28.1 % (42.0-52.0); Lymphocytes # 0.6 10^3/uL (0.8-4.8); Lymphocytes % 4.6 %; Mean Corpuscular Hemoglobin 35.3 pg (28.0-34.0); Mean Corpuscular Volume 110.2 fL (80-94); Mean Platelet Volume 12.1 fL (7.4-10.4); Monocytes # 1.5 10^3/uL (0.2-0.9); Monocytes % 11.4 %; Neutrophils # 10.59 10^3/uL (1.8-7.7); Neutrophils % 82.7 %; Nucleated Red Blood Cells % 0 %; Platelet Count 274 10^3/cmm (130-400); Red Blood Count 2.55 10^6/uL (4.1-5.3); Red Cell Distribution Width 14.3 % (12.1-15.1); White Blood Count 12.8 10^3/uL (4.0-10.0)
[2020-09-17 02:41] LABS: Albumin Level 2.8 g/dL (3.5-5.2); Anion Gap 16.6 (5-19); Blood Urea Nitrogen 16 mg/dL (8-23); Carbon Dioxide 18 mmol/L (22-29); Chloride 113 mmol/L (98-107); Glomerular Filtration Rate 112.8 mL/min (90-130); Glucose 113 mg/dL (65-115); Phosphorus 3.5 mg/dL (2.5-4.5); Potassium 3.6 mmol/L (3.5-5.1); Sodium 144 mmol/L (136-145)
[2020-09-17 02:42] LABS: Magnesium 1.9 mg/dL (1.7-2.3)
[2020-09-17 04:00] VITALS: BP 140/89; PULSE 114; RESP 18; TEMP 36.9; O2SAT 93
[2020-09-17] MEDS: metoprolol succinate ER (24 HR) 100 mg Tablet PO (06:25)
--- NOTE | 2020-09-17 08:36 | USCV_ITS ---
Antony Ethan Age: 65 Gender: M : 1955 Exam Date: 09/17/2020 15:12 Ordering Phys: Navin Lopez MD Technologist: Sarah Malave [place] [facility] [place]: Swelling HISTORY: Upper extremity swelling. PROCEDURES: Venous duplex imaging was performed in only the right upper extremity. The following venous structures were evaluated: internal jugular vein, subclavian vein, axillary vein, and brachial veins. In addition, the basilic vein, cephalic vein, radial vein, and ulnar vein. Serial compression, augmentation maneuvers, and spectral Doppler flow evaluation were performed. FINDINGS: Normal 2-D, color Doppler and phasicity noted in ther right upper extremity venous system extending from the right internal jugular vein through the main forearm. No thrombosis or occlusion noted. CONCLUSIONS No right upper extremity DVT. Dr. Akanksha Howard DO (Electronically Signed) Final Date: 17 September 2020 16:06 S
[2020-09-17 08:43] VITALS: BP 138/78; PULSE 88; RESP 20; TEMP 36.8; O2SAT 97
[2020-09-17] MEDS: aspirin 325 mg EC Tablet PO (10:14)
[2020-09-17] MEDS: folic acid 1 mg Tablet PO (10:14)
[2020-09-17] MEDS: piperacillin-tazobactam 3.375 GM in sodium chloride 0.9% (plus) 50 ML IV ×2 (10:14→17:36)
[2020-09-17] MEDS: multivitamin therapeutic Tablet 1 TAB PO (10:14)
[2020-09-17] MEDS: thiamine 100 mg Tablet PO (10:15)
[2020-09-17 14:00] VITALS: BP 138/76; PULSE 80; RESP 20; TEMP 36.7; O2SAT 97
[2020-09-17 15:17] VITALS: BP 138/76; PULSE 80; RESP 20; TEMP 36.7; O2SAT 97
--- NOTE | 2020-09-17 15:55 | PM.PN ---
Subjective Subjective: Interval history: Mental status is a little better today. No tremors. He is less lethargic. 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 tenderness is better. No fever or chills. No nausea or vomiting. No diarrhea. Medications: Reviewed: Yes Medication Review Details: Generic Name Dose Route Start Last Admin Trade Name Dudleyq PRN Reason Stop Dose Admin Aspirin 325 mg 09/14/20 09:00 09/17/20 10:14 Aspirin 325 Mg E c Tablet PO 325 mg DAILY ARNAV Administration Chlordiazepoxide 20 mg 09/15/20 13:45 09/17/20 04:50 Chlordiazepoxide 10 Mg Capsule PO Not Given Q8H ARNAV Famotidine 20 mg 09/14/20 18:00 09/17/20 06:28 Famotidine 20 Mg Tablet PO Not Given Q12H ARNAV Folic Acid 1 mg 09/12/20 09:00 09/17/20 10:14 Folic Acid 1 Mg Tablet PO 1 mg DAILY ARNAV Administration Piperacillin Sod/T azobactam 50 mls @ 12.5 mls /hr 09/17/20 09:00 09/17/20 10:14 Sod 3.375 gm/ So dium Chloride IV 12.5 mls/hr Q8H ARNAV Administration Protocol Lorazepam 2 mg 09/15/20 02:17 09/16/20 08:04 Lorazepam 2 Mg/M l Inj 1 Ml IM 2 mg Q4H PRN Administration ALCOWD Protocol Lorazepam 2 mg 09/15/20 02:17 09/16/20 00:16 Lorazepam 2 Mg/M l Inj 1 Ml IVP 2 mg PRN PRN Administration WITHDRAWAL Protocol Metoprolol Succina te 100 mg 09/12/20 07:00 09/17/20 06:25 Metoprolol Succi ana laura Er (24 Hr) 10 0 Mg Tablet PO 100 mg DAILY@07 ARNAV Administration Multivitamins Ther apeutic 1 tab 09/12/20 09:00 09/17/20 10:14 Multivitamin The rapeutic Tablet PO 1 tab DAILY ARNAV Administration Thiamine Mononitra te 100 mg 09/12/20 09:00 09/17/20 10:15 Thiamine 100 Mg Tablet PO 100 mg DAILY ARNAV Administration Vitals/I&O/Wt Last Vital Signs Temp 98.1 F 09/17/20 15:17 Pulse 80 09/17/20 15:17 Resp 20 H 09/17/20 15:17 BP 138/76 09/17/20 15:17 Pulse Ox 97 09/17/20 15:17 09/17/20 09/17/20 09/17/20 06:59 14:59 22:59 Output Total 500 / 900 Balance -500 / -780 Physical Exam Narrative: EXAM NARRATIVE: Lethargic. Oriented. No acute distress. Skin is warm and dry. Moist membranes. Eyes Alicia, extraocular muscles are intact Neck supple. No JVD Lungs clear. Heart S1, S2, regular Abdomen soft, nontender, bowel sounds are present Extremities no calf tenderness or cyanosis bilaterally. 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 is tender when moving, there is some swelling in the wrist and elbow area, tender to touch. Urinary Catheter Management^: Haq: Cath Placed During This Visit: yes Reason for Continuing Indwelling Catheter: Acute Urinary Retention or Obstruction Urinary Catheter Date of Insertion: 09/12/20 Urinary Catheter Time of Insertion: 16:34 Data : 09/17/20 02:14 09/17/20 02:14 Micro: Microbiology 09/16/20 10:25 Urine Culture - Preliminary Urine,Clean Catch A&P Assessment and plan (1) Closed fracture of left hip: Status: Acute (2) UTI (urinary tract infection): Status: Acute (3) Metabolic encephalopathy: Status: Acute (4) Anemia: Status: Acute (5) Alcohol abuse: Status: Acute (6) Benign essential hypertension with target blood pressure below 140/90: Status: Acute (7) Premature ventricular contractions: Status: Acute (8) Somnolence, daytime: Status: Acute (9) Abnormal nuclear stress test: Status: Acute (10) Mixed hyperlipidemia: Status: Acute Additional A&P Information Left hip intertrochanteric fracture. Status post ORIF by Dr. Glaser. Waiting for placement to acute rehab facility. Continue PT OT. Continue pain management. 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 pain, swelling. X-rays are negative for fractures. Ordering Doppler to rule out DVT. DVT prophylaxis. He is on aspirin per Dr. Fleming UTI. Cultures positive for Enterococcus. Sensitivities are pending. We will switch him to Zosyn. Cussed with the pharmacist. Anemia suspected to be secondary to expected acute blood loss secondary to #1. Receiving iron replacement. Continue monitoring. Stable. Positive fecal occult blood test. Not sure what source could be. Did not have any reported vomiting to explain it by Elidia-Worley tears. He has iron deficiency. This could indicate chronic character of blood loss. Definitely will need GI evaluation. Currently hemodynamically stable. No evidence of active or significant bleeding. Discussed with Dr. Harvey. Will undergo GI evaluation after discharge. EtOH. Continue thiamine replacement. CIWA protocol was used last night due to withdrawal symptoms. Continue scheduled Librium. Ordering pulse oximetry to monitor for respiratory depression. Discussed with the nursing staff. Acute metabolic encephalopathy secondary to DT and UTI. Slightly better today. Continue management of these problems as described above. Hypokalemia. Replace and monitor Hypertension. Well-controlled. Continue current management. Attestations Medical Necessity Statement*: Still requires inpatient management due to DT, UTI, metabolic encephalopathy. 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
[2020-09-17 20:00] VITALS: BP 124/78; PULSE 74; RESP 18; TEMP 36.9; O2SAT 92
[2020-09-18] VITALS (8 sets, daily range): BP systolic 124–141; BP diastolic 62–95; PULSE 89–122; RESP 16–20; TEMP 36.6–39.1; O2SAT 93–96
[2020-09-18] MEDS: piperacillin-tazobactam 3.375 GM in sodium chloride 0.9% (plus) 50 ML IV ×3 (00:32→22:35)
[2020-09-18] MEDS: acetaminophen 500 mg Tablet PO ×2 (00:55→18:07)
[2020-09-18 05:01] LABS: Basophils % 0.2 %; Eosinophils # 0.1 10^3/uL (0.0-0.8); Eosinophils % 0.6 %; Hematocrit 26.6 % (42.0-52.0); Hemoglobin 8.6 g/dL (11.7-16.6); Lymphocytes # 0.8 10^3/uL (0.8-4.8); Mean Corpuscular HGB Conc 32.3 g/dL (30.0-36.0); Mean Corpuscular Volume 111.3 fL (80-94); Mean Platelet Volume 12.5 fL (7.4-10.4); Monocytes # 1.4 10^3/uL (0.2-0.9); Monocytes % 12.5 %; Neutrophils # 8.71 10^3/uL (1.8-7.7); Neutrophils % 79.2 %; Nucleated Red Blood Cells % 0 %; Platelet Count 247 10^3/cmm (130-400); Red Blood Count 2.39 10^6/uL (4.1-5.3); Red Cell Distribution Width 14.6 % (12.1-15.1)
[2020-09-18 05:24] LABS: Alanine Aminotransferase 28 U/L (0-41); Albumin Level 2.3 g/dL (3.5-5.2); Alkaline Phosphatase 77 IU/L (40-130); Anion Gap 15.4 (5-19); Aspartate Amino Transferase 45 U/L (0-40); Blood Urea Nitrogen 19 mg/dL (8-23); Calcium 8.8 mg/dL (8.5-10.5); Carbon Dioxide 20 mmol/L (22-29); Chloride 115 mmol/L (98-107); Globulin 3.7 g/dL (1.3-4.6); Glomerular Filtration Rate 84.4 mL/min (90-130); Glucose 105 mg/dL (65-115); Osmolality Calculated 307 mOsm/kg (285-295); Potassium 3.4 mmol/L (3.5-5.1); Sodium 147 mmol/L (136-145); Total Bilirubin 0.6 mg/dL (0.15-1.2)
[2020-09-18] MEDS: oxyCODONE 5 mg IR Tab/Cap PO (10:20)
--- NOTE | 2020-09-18 11:00 | PC.SOCIAL ---
IMM Updated IMM updated with pt. No questions voiced. Provided pt a copy. Signed, dated, timed copy in chart.
[2020-09-18] MEDS: folic acid 1 mg Tablet PO (11:39)
[2020-09-18] MEDS: metoprolol succinate ER (24 HR) 100 mg Tablet PO (11:39)
[2020-09-18] MEDS: multivitamin therapeutic Tablet 1 TAB PO (11:39)
[2020-09-18] MEDS: thiamine 100 mg Tablet PO (11:39)
[2020-09-18] MEDS: aspirin 325 mg EC Tablet PO (11:40)
[2020-09-18] MEDS: famotidine 20 mg Tablet PO ×2 (11:40→18:07)
[2020-09-18] MEDS: lactated ringers 1,000 ML 75 ML IV (11:45)
[2020-09-18] MEDS: potassium chloride premix 100 ML 50 MEQ IV (11:46)
--- NOTE | 2020-09-18 15:31 | PM.PN ---
Subjective Subjective: Interval history: More awake today. Still confused. Complains of generalized aches but having hard time localizing the source of the pain. Occasionally mentions his hip. No fever or chills. No nausea or vomiting. No chest pain, shortness of breath, cough, palpitations. Medications: Reviewed: Yes Medication Review Details: Generic Name Dose Route Start Last Admin Trade Name Freq PRN Reason Stop Dose Admin Acetaminophen 500 mg 09/18/20 00:47 09/18/20 00:55 Acetaminophen 50 0 Mg Tablet PO 500 mg Q4H PRN Administration MILD PAIN OR INCR EASE TEMP Aspirin 325 mg 09/14/20 09:00 09/18/20 11:40 Aspirin 325 Mg E c Tablet PO 325 mg DAILY ARNAV Administration Chlordiazepoxide 20 mg 09/15/20 13:45 09/17/20 04:50 Chlordiazepoxide 10 Mg Capsule PO Not Given Q8H ARNAV Famotidine 20 mg 09/14/20 18:00 09/18/20 11:40 Famotidine 20 Mg Tablet PO 20 mg Q12H ARNAV Administration Folic Acid 1 mg 09/12/20 09:00 09/18/20 11:39 Folic Acid 1 Mg Tablet PO 1 mg DAILY ARNAV Administration Piperacillin Sod/T azobactam 50 mls @ 12.5 mls /hr 09/17/20 09:00 09/18/20 14:58 Sod 3.375 gm/ So dium Chloride IV 12.5 mls/hr Q8H ARNAV Administration Protocol Lactated Ringer's 1,000 mls @ 75 ml s/hr 09/18/20 09:30 09/18/20 11:45 Lactated Ringers IV 09/19/20 12:09 75 mls/hr .[id number] ARNAV Administration Lorazepam 2 mg 09/15/20 02:17 09/16/20 08:04 Lorazepam 2 Mg/M l Inj 1 Ml IM 2 mg Q4H PRN Administration ALCOWD Protocol Lorazepam 2 mg 09/15/20 02:17 09/16/20 00:16 Lorazepam 2 Mg/M l Inj 1 Ml IVP 2 mg PRN PRN Administration WITHDRAWAL Protocol Metoprolol Succina te 100 mg 09/12/20 07:00 09/18/20 11:39 Metoprolol Succi ana laura Er (24 Hr) 10 0 Mg Tablet PO 100 mg DAILY@07 ARNAV Administration Multivitamins Ther apeutic 1 tab 09/12/20 09:00 09/18/20 11:39 Multivitamin The rapeutic Tablet PO 1 tab DAILY ARNAV Administration Oxycodone HCl 5 mg 09/15/20 08:52 09/18/20 10:20 Oxycodone 5 Mg I r Tab/Cap PO 5 mg Q6H PRN Administration PAIN Thiamine Mononitra te 100 mg 09/12/20 09:00 09/18/20 11:39 Thiamine 100 Mg Tablet PO 100 mg DAILY ARNAV Administration Vitals/I&O/Wt Last Vital Signs Temp 98.7 F 09/18/20 11:23 Pulse 99 09/18/20 11:23 Resp 18 09/18/20 11:23 BP 134/91 09/18/20 11:23 Pulse Ox 93 09/18/20 11:23 09/18/20 09/18/20 09/18/20 06:59 14:59 22:59 Intake Total 50 / 200 100 / 100 Output Total 700 / 700 Balance -650 / -500 100 / 100 Physical Exam Narrative: EXAM NARRATIVE: Lethargic. Oriented. No acute distress. Skin is warm and dry. Moist membranes. Eyes Alicia, extraocular muscles are intact Neck supple. No JVD Lungs clear. Heart S1, S2, regular Abdomen soft, nontender, bowel sounds are present Extremities no calf tenderness or cyanosis bilaterally. 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 is tender when moving, there is some swelling in the wrist and elbow area, tender to touch. Urinary Catheter Management^: Haq: Cath Placed During This Visit: yes Reason for Continuing Indwelling Catheter: Other Urinary Catheter Date of Insertion: 09/12/20 Urinary Catheter Time of Insertion: 16:34 Data : 09/18/20 04:44 09/18/20 04:44 Micro: Microbiology 09/14/20 15:10 Urine Culture - Final Urine Catheterized Enterococcus sp (motility -) 09/16/20 10:25 Urine Culture - Final Urine,Clean Catch A&P Assessment and plan (1) Closed fracture of left hip: Status: Acute (2) UTI (urinary tract infection): Status: Acute (3) Metabolic encephalopathy: Status: Acute (4) Anemia: Status: Acute (5) Alcohol abuse: Status: Acute (6) Benign essential hypertension with target blood pressure below 140/90: Status: Acute (7) Premature ventricular contractions: Status: Acute (8) Somnolence, daytime: Status: Acute (9) Abnormal nuclear stress test: Status: Acute (10) Mixed hyperlipidemia: Status: Acute Additional A&P Information Left hip intertrochanteric fracture. Status post ORIF by Dr. Glaser. Waiting for placement to acute rehab facility. Continue PT OT. Continue pain management. 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 pain, swelling. X-rays are negative for fractures. Doppler was negative for DVT. DVT prophylaxis. He is on aspirin per Dr. Fleming UTI. Cultures positive for Enterococcus. Sensitivities are pending. Continuing Zosyn. Anemia suspected to be secondary to expected acute blood loss secondary to #1. Receiving iron replacement. Continue monitoring. Stable. Positive fecal occult blood test. Not sure what source could be. Did not have any reported vomiting to explain it by Elidia-Worley tears. He has iron deficiency. This could indicate chronic character of blood loss. Definitely will need GI evaluation. Currently hemodynamically stable. No evidence of active or significant bleeding. Discussed with Dr. Harvey. Will undergo GI evaluation after discharge. EtOH. Continue thiamine replacement. CIWA protocol was used last night due to withdrawal symptoms. Continue scheduled Librium. Ordering pulse oximetry to monitor for respiratory depression. Discussed with the nursing staff. Dehydration and mild hypernatremia. We will hydrate gently with LR. We will recheck his chemistry panel tomorrow. Acute metabolic encephalopathy secondary to DT and UTI. Slightly better today. Continue management of these problems as described above. Hypokalemia. Replace and monitor Hypertension. Well-controlled. Continue current management. Attestations Medical Necessity Statement*: Pending placement Coding Level of Care Code Acute [employer] for g Fwd Diagnoses Closed fracture of left hip S72.002A UTI (urinary tract infection) N39.0 Metabolic encephalopathy G93.41 Anemia D64.9 Alcohol abuse F10.10 Benign essential hypertension with target blood pressure below 140/90 I10 Premature ventricular contractions I49.3 Somnolence, daytime R40.0 Abnormal nuclear stress test R94.39 Mixed hyperlipidemia E78.2
[2020-09-19] VITALS: BP 102/63; PULSE 68; RESP 17; TEMP 37.2; O2SAT 95
[2020-09-19 04:00] VITALS: BP 101/76; PULSE 101; RESP 18; TEMP 36.9; O2SAT 96
[2020-09-19] MEDS: piperacillin-tazobactam 3.375 GM in sodium chloride 0.9% (plus) 50 ML IV (05:27)
[2020-09-19 05:40] LABS: Basophils % 0.3 %; Eosinophils # 0.4 10^3/uL (0.0-0.8); Eosinophils % 3.7 %; Hematocrit 26.6 % (42.0-52.0); Hemoglobin 8.3 g/dL (11.7-16.6); Lymphocytes # 0.8 10^3/uL (0.8-4.8); Lymphocytes % 8.3 %; Mean Corpuscular HGB Conc 31.2 g/dL (30.0-36.0); Mean Corpuscular Hemoglobin 35.3 pg (28.0-34.0); Mean Corpuscular Volume 113.2 fL (80-94); Mean Platelet Volume 12.7 fL (7.4-10.4); Monocytes % 10.5 %; Neutrophils # 7.16 10^3/uL (1.8-7.7); Neutrophils % 76.2 %; Nucleated Red Blood Cells % 0 %; Platelet Count 253 10^3/cmm (130-400); Red Blood Count 2.35 10^6/uL (4.1-5.3); Red Cell Distribution Width 14.6 % (12.1-15.1); White Blood Count 9.4 10^3/uL (4.0-10.0)
[2020-09-19] MEDS: famotidine 20 mg Tablet PO ×2 (06:13→18:12)
[2020-09-19] MEDS: metoprolol succinate ER (24 HR) 100 mg Tablet PO (06:13)
[2020-09-19 06:18] LABS: Procalcitonin 0.83 ng/mL (0-0.5)
[2020-09-19 06:28] LABS: Albumin Level 2.4 g/dL (3.5-5.2); Anion Gap 16.5 (5-19); Blood Urea Nitrogen 18 mg/dL (8-23); Calcium 8.4 mg/dL (8.5-10.5); Carbon Dioxide 20 mmol/L (22-29); Chloride 113 mmol/L (98-107); Glomerular Filtration Rate 84.4 mL/min (90-130); Glucose 91 mg/dL (65-115); Magnesium 2.1 mg/dL (1.7-2.3); Phosphorus 3.8 mg/dL (2.5-4.5); Potassium 3.5 mmol/L (3.5-5.1); Sodium 146 mmol/L (136-145)
[2020-09-19 07:47] VITALS: BP 140/72; PULSE 89; RESP 16; TEMP 36.7; O2SAT 94
[2020-09-19] MEDS: aspirin 325 mg EC Tablet PO (09:08)
[2020-09-19] MEDS: thiamine 100 mg Tablet PO (09:08)
[2020-09-19] MEDS: multivitamin therapeutic Tablet 1 TAB PO (09:08)
[2020-09-19] MEDS: folic acid 1 mg Tablet PO (09:08)
[2020-09-19 12:00] VITALS: BP 137/77; PULSE 70; RESP 18; TEMP 36.8; O2SAT 96
--- NOTE | 2020-09-19 12:24 | P.PN_ITS ---
Subjective Subjective: Interval history: He looks much better today. He reports feeling better. More awake and responsive. Wants to watch football game on TV. Wants to find [employer] game on TV. Discussed with the nurse. The patient did not require any medications per CIWA. No withdrawal symptoms. No chills. No nausea or vomiting. The pain is well controlled. No chest pain or shortness of breath. Medications: Reviewed: Yes Medication Review Details: Generic Name Dose Route Start Last Admin Trade Name Pj PRN Reason Stop Dose Admin Acetaminophen 500 mg 09/18/20 00:47 09/18/20 18:07 Acetaminophen 50 0 Mg Tablet PO 500 mg Q4H PRN Administration MILD PAIN OR INCR EASE TEMP Aspirin 325 mg 09/14/20 09:00 09/19/20 09:08 Aspirin 325 Mg E c Tablet PO 325 mg DAILY ARNAV Administration Chlordiazepoxide 20 mg 09/15/20 13:45 09/17/20 04:50 Chlordiazepoxide 10 Mg Capsule PO Not Given Q8H ARNAV Famotidine 20 mg 09/14/20 18:00 09/19/20 06:13 Famotidine 20 Mg Tablet PO 20 mg Q12H ARNAV Administration Folic Acid 1 mg 09/12/20 09:00 09/19/20 09:08 Folic Acid 1 Mg Tablet PO 1 mg DAILY ARNAV Administration Piperacillin Sod/T azobactam 50 mls @ 12.5 mls /hr 09/17/20 09:00 09/19/20 10:58 Sod 3.375 gm/ So dium Chloride IV Infused Q8H ARNAV Infusion Protocol Metoprolol Succina te 100 mg 09/12/20 07:00 09/19/20 06:13 Metoprolol Succi ana laura Er (24 Hr) 10 0 Mg Tablet PO 100 mg DAILY@07 ARNAV Administration Multivitamins Ther apeutic 1 tab 09/12/20 09:00 09/19/20 09:08 Multivitamin The rapeutic Tablet PO 1 tab DAILY ARNAV Administration Thiamine Mononitra te 100 mg 09/12/20 09:00 09/19/20 09:08 Thiamine 100 Mg Tablet PO 100 mg DAILY ARNAV Administration Vitals/I&O/Wt Last Vital Signs Temp 98.2 F 09/19/20 12:00 Pulse 70 09/19/20 12:00 Resp 18 09/19/20 12:00 BP 137/77 09/19/20 12:00 Pulse Ox 96 09/19/20 12:00 09/18/20 09/19/20 09/19/20 22:59 06:59 14:59 Intake Total 50 / 150 711.25 / 861.25 388.75 / 388.75 Output Total 375 / 375 540 / 915 Balance -325 / -225 171.25 / -53.75 388.75 / 388.75 Physical Exam Narrative: EXAM NARRATIVE: Awake. Some grogginess is still present. Oriented. No acute distress. Skin is warm and dry. Moist membranes. Eyes Alicia, extraocular muscles are intact Neck supple. No JVD Lungs clear. Heart S1, S2, regular Abdomen soft, nontender, bowel sounds are present Extremities no calf tenderness or cyanosis bilaterally. 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 is tender when moving, there is some swelling in the wrist and elbow area, tender to touch. Urinary Catheter Management^: Haq: Cath Placed During This Visit: yes Reason for Continuing Indwelling Catheter: Other Urinary Catheter Date of Insertion: 09/12/20 Urinary Catheter Time of Insertion: 16:34 Data : 09/19/20 05:04 09/19/20 05:04 Micro: Microbiology 09/13/20 22:03 Blood Culture - Final Blood NO GROWTH AFTER 5 DAYS 09/13/20 22:03 Blood Culture - Final Blood NO GROWTH AFTER 5 DAYS 09/14/20 15:10 Urine Culture - Final Urine Catheterized Enterococcus sp (motility -) 09/16/20 10:25 Urine Culture - Final Urine,Clean Catch A&P Assessment and plan (1) Closed fracture of left hip: Status: Acute (2) UTI (urinary tract infection): Status: Acute (3) Metabolic encephalopathy: Status: Acute (4) Anemia: Status: Acute (5) Alcohol abuse: Status: Acute (6) Benign essential hypertension with target blood pressure below 140/90: Status: Acute (7) Premature ventricular contractions: Status: Acute (8) Somnolence, daytime: Status: Acute (9) Abnormal nuclear stress test: Status: Acute (10) Mixed hyperlipidemia: Status: Acute Additional A&P Information Left hip intertrochanteric fracture. Status post ORIF by Dr. Glaser. Waiting for placement to acute rehab facility. Continue PT OT. Continue pain management. 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 pain, swelling. X-rays are negative for fractures. Doppler was negative for DVT. Continue PT OT and pain management. If remains s everely tender or shows limited mobility probably would be a good idea to ask Dr. Glaser to reevaluate the arm. DVT prophylaxis. He is on aspirin per Dr. Fleming UTI. Cultures positive for Enterococcus. Currently on Zosyn. To p.o. today. Acute blood loss anemia secondary to expected acute blood loss secondary to #1. Received iron replacement. Continue monitoring. Stable. Positive fecal occult blood test. Not sure what source could be. Did not have any reported vomiting to explain it by Elidia-Worley tears. He has iron deficiency. This could indicate chronic character of blood loss. Definitely will need GI evaluation. Currently hemodynamically stable. No evidence of active or significant bleeding. Discussed with Dr. Harvey. Will undergo GI evaluation after discharge. DT and EtOH withdrawals. Improved today. Continue thiamine replacement. CIWA protocol as needed. Dehydration and mild hypernatremia. Improved hydration. Continue p.o. Cont inue monitoring chemistry panel Acute metabolic encephalopathy secondary to DT and UTI. Improving. Hypokalemia. Replace and monitor Hypertension. Well-controlled. Continue current management. The plan of care was discussed with the patient and nursing staff. Attestations Medical Necessity Statement*: Currently improving. Expect possible discharge tomorrow or the day after tomorrow depending on progress Coding Level of Care Code Acute [employer] [facility] Fwd Diagnoses Closed fracture of left hip S72.002A UTI (urinary tract infection) N39.0 Metabolic encephalopathy G93.41 Anemia D64.9 Alcohol abuse F10.10 Benign essential hypertension with target blood pressure below 140/90 I10 Premature ventricular contractions I49.3 Somnolence, daytime R40.0 Abnormal nuclear stress test R94.39 Mixed hyperlipidemia E78.2
[2020-09-19] MEDS: potassium chloride ER 20 mEq Tablet PO (13:45)
[2020-09-19] MEDS: lactated ringers 1,000 ML 75 ML IV (13:45)
[2020-09-19 15:23] VITALS: BP 125/77; PULSE 93; RESP 17; TEMP 36.8; O2SAT 95
[2020-09-19] MEDS: amoxicillin-clav 875-125 mg Tablet 1 TAB PO (18:12)
[2020-09-19 20:00] VITALS: BP 118/81; PULSE 98; RESP 18; TEMP 37.5; O2SAT 97
[2020-09-20] VITALS (9 sets, daily range): BP systolic 108–142; BP diastolic 58–97; PULSE 67–138; RESP 17–24; TEMP 36.2–37.7; O2SAT 92–99
[2020-09-20 05:18] LABS: Basophils % 0.3 %; Nucleated Red Blood Cells % 0 %
[2020-09-20 05:31] LABS: Eosinophils # 0.4 10^3/uL (0.0-0.8); Eosinophils % 5.4 %; Hematocrit 26.6 % (42.0-52.0); Hemoglobin 8.4 g/dL (11.7-16.6); Lymphocytes # 0.6 10^3/uL (0.8-4.8); Lymphocytes % 7.8 %; Mean Corpuscular HGB Conc 31.6 g/dL (30.0-36.0); Mean Corpuscular Hemoglobin 35.4 pg (28.0-34.0); Mean Corpuscular Volume 112.2 fL (80-94); Mean Platelet Volume 13.2 fL (7.4-10.4); Monocytes # 0.7 10^3/uL (0.2-0.9); Monocytes % 9.1 %; Neutrophils # 5.73 10^3/uL (1.8-7.7); Platelet Count 247 10^3/cmm (130-400); Red Blood Count 2.37 10^6/uL (4.1-5.3); Red Cell Distribution Width 14.6 % (12.1-15.1); White Blood Count 7.4 10^3/uL (4.0-10.0)
[2020-09-20 05:34] LABS: Albumin Level 2.3 g/dL (3.5-5.2); Anion Gap 16.6 (5-19); Blood Urea Nitrogen 18 mg/dL (8-23); Calcium 8.2 mg/dL (8.5-10.5); Carbon Dioxide 20 mmol/L (22-29); Chloride 114 mmol/L (98-107); Glomerular Filtration Rate 112.8 mL/min (90-130); Glucose 97 mg/dL (65-115); Magnesium 1.9 mg/dL (1.7-2.3); Phosphorus 3.4 mg/dL (2.5-4.5); Potassium 3.6 mmol/L (3.5-5.1); Sodium 147 mmol/L (136-145)
[2020-09-20 06:06] LABS: Slide Review Slide Review Perform
[2020-09-20] MEDS: metoprolol succinate ER (24 HR) 100 mg Tablet PO (06:49)
[2020-09-20] MEDS: famotidine 20 mg Tablet PO (06:49)
[2020-09-20] MEDS: amoxicillin-clav 875-125 mg Tablet 1 TAB PO (08:19)
[2020-09-20] MEDS: folic acid 1 mg Tablet PO (08:20)
[2020-09-20] MEDS: thiamine 100 mg Tablet PO (08:20)
[2020-09-20] MEDS: aspirin 325 mg EC Tablet PO (08:20)
[2020-09-20] MEDS: multivitamin therapeutic Tablet 1 TAB PO (08:20)
--- NOTE | 2020-09-20 10:37 | CT_ITS ---
WS: [id number] CT HEAD TECHNIQUE: Noncontrast CT of the head obtained from the skullbase to the vertex. CLINICAL INFORMATION: cva? COMPARISON: None. DLP: 853.[address] scans at [facility] use at least one of these dose optimization techniques: automat ed exposure control; mA and/or kV adjustment per patient size (includes targeted exams where dose is matched to clinical indication); or iterative reconstruction. FINDINGS: No evidence of intracranial hemorrhage or mass effect. Ventricular system and basal cisterns are cole nt. Mild small vessel changes with mild parenchymal volume loss. No extra-axial fluid collections. No evidence of mass or mass effect. Normal bailon-white differentiation. Retention cyst right maxillary sinus. Paranasal sinuses and mastoid air cells are otherwise well aera med. Normal visualized soft tissues. CT/CT head wo con* [id number] IMPRESSION: 1. No evidence of intracranial hemorrhage or mass effect. 2. Mild small vessel changes. Mild parenchymal volume loss. 3. No acute intracranial findings.
--- NOTE | 2020-09-20 10:37 | CT_ITS ---
WS: [id number] CTA HEAD AND NECK TECHNIQUE: Contrast enhanced CTA of the head and neck with coronal and sagittal reformatted images an d maximum intensity projection (MIP) images. NASCET criteria utilized. CLINICAL INFORMATION: cva COMPARISON: None. DLP: 2738.[address] scans at [facility] use at least one of these dose optimization techniques: automat ed exposure control; mA and/or kV adjustment per patient size (includes targeted exams where dose is matched to clinical indication); or iterative reconstruction. FINDINGS: RIGHT: Right common carotid artery is patent. High-grade stenosis right proximal ICA with eccentric p laque. Stenosis measures approximately 80-85% with tiny residual lumen measuring 1.3 mm. Decreased ca liber of the right ICA to the skull base which remains patent. LEFT: Left common carotid artery is patent. No significant left ICA stenosis. Left ICA is patent to t he skull base. INTRACRANIAL CTA: Both vertebral arteries are patent. Proximal basilar artery is patent. Normal vascularity to the [employer]ING [employer] SALES MANA[employer] territory bilaterally. Both ICAs are patent at the skull base. Normal vascularity to the WOLF and MCA territories bilaterally . No evidence of high-grade flow-limiting stenosis. Congenital hypoplastic right A1 segment. Patent a nterior communicating artery. Retention cyst right maxillary sinus. Normal posterior nasopharynx. Normal parapharyngeal fat. Modera te spondylitic changes cervical spine. CT/CT angio headneck* [id number] IMPRESSION: 1. High-grade right proximal ICA stenosis with tiny residual lumen. Stenosis m easures 80-85% with reduced caliber ICA, which remains patent to the skull base . 2. No significant left ICA stenosis. 3. Codominant and patent vertebral arteries bilaterally. 4. No flow-limiting intracranial stenosis.
[2020-09-20] MEDS: pantoprazole DR 40 mg Tablet PO ×2 (10:38→17:31)
[2020-09-20] MEDS: sucralfate 1 gm Tablet PO ×3 (10:38→21:00)
--- NOTE | 2020-09-20 10:40 | XR_ITS ---
WS: [id number] Exam: XR chest 1V portable [id number] Date/Time of Exam: 09/20/2020 11:19 AM Reason For Exam: sob Comparison 09/11/2020. The lungs are clear and fully inflated. Normal cardiomediastinal structures for technique. No pleural effusions. Regional bony elements are intact. XR/XR chest 1V portable [id number] IMPRESSION: 1. No acute cardiopulmonary finding.
[2020-09-20 11:21] LABS: Bilirubin Urine 1+ (Negative); Blood Urine 2+ (Negative); Glucose Urine UA Norm (Normal); Ketones Urine 1+ (Negative); Nitrate Urine Negative (Negative); Protein Urine Neg (Negative); Specific Gravity, Urine 1.015 (1.005-1.030); Urine Appearance SL Hazy (CLEAR); Urine Color Yellow (Yellow); pH Urine 5 (5-7)
[2020-09-20 11:22] LABS: Add Urine Microscopic? YES; Amphetamines Screen Urine Negative (Negative); Barbiturates Screen Urine Negative (Negative); Benzodiazepines Screen Urine Positive (Negative); Cocaine Screen Urine Negative (Negative); Leukocyte Esterase Urine 1+ (Negative); Opiate Screen Urine Negative (Negative); PCP Screen Urine Negative (Negative); THC Screen Urine Negative (Negative); Urobilinogen Urine 4 mg/dL (Negative)
[2020-09-20 11:26] LABS: Bacteria Urine 2+ /hpf; Mucus Urine 1+ /hpf; Squamous Epithelial Cell Urine 0-4 /hpf (0-5)
[2020-09-20 11:27] LABS: Add Urine Culture? Yes
[2020-09-20 11:43] LABS: Potassium, Radom Urine 43 mmol/L; Urine Creatinine 155 mg/dL (39-259); Urine Random Chloride 122 mmol/L; Urine Random Sodium 148 mmol/L
[2020-09-20] MEDS: iohexol 350 mg/mL 100 mL Btl IV (11:45)
[2020-09-20 11:50] LABS: Procalcitonin 0.67 ng/mL (0-0.5)
[2020-09-20 11:55] LABS: Urea Nitrogen,Urine Random 1042 mg/dL
[2020-09-20] MEDS: FUROsemide 10 mg/mL SDV 4mL 40 MG IVP (11:56)
[2020-09-20 14:52] LABS: Eosinophil Urine No Eosinophils Seen; Urine Eosinophil Count 0 (0-0)
[2020-09-20] MEDS: sodium chloride 0.9% 1,000 ML 75 ML IV ×2 (15:45→23:12)
--- NOTE | 2020-09-20 15:47 | PC.SOCIAL ---
*IMM* Updated the patient about IMM. Initialled and in the chart.
--- NOTE | 2020-09-20 16:47 | US_ITS ---
WS: [id number] ULTRASOUND RENAL TECHNIQUE: Ultrasound examination of both kidneys. CLINICAL INFORMATION: recurrent uti COMPARISON: None. FINDINGS: Technically difficult examination. RIGHT: Right kidney is normal in size and appearance. Echogenicity: Normal. Cortical thickness: cm; Normal. Hydronephrosis: None. Perinephric fluid: None. Right kidney measures: 10.7 cm x 5.2 cm x 5.3 cm. LEFT: Left kidney is normal in size and appearance. Echogenicity: Normal. Cortical thickness: cm; Normal. Hydronephrosis: None. Perinephric fluid: None. Left kidney measures: 10.5 cm x 5.8 cm x 5.9 cm. Normal visualized aorta. Normal bladder. US/US renal BI* [id number] IMPRESSION: Normal renal ultrasound
--- NOTE | 2020-09-20 16:48 | P.PN_ITS ---
Subjective Subjective: Interval history: This morning patient was examined, he is alert to person, knows that he is in the hospital, but not oriented to time, he has episodes of confusion, at times does not answer questions appropriately, he does follow commands, however upon entering the room, I had noticed immediately that patient is right hand and right arm were to his side, any fever not moving the arm, when asked what is going on with his right hand and arm, he tells it hurts, I was able to raise his arm up, and is able to keep his arm up, but eventually does drift and hit the bed, he is able to squeeze my fingers, he tells me that his right upper extremity hurts him, he is not very specific in wear, but particularly in the shoulder joint, I cannot discern any slurring of his speech, there is no right lower extremity weakness, there is no visual deficits at this time, no facial droop Medications: Reviewed: Yes Medication Review Details: Generic Name Dose Route Start Last Admin Trade Name Freq PRN Reason Stop Dose Admin Acetaminophen 500 mg 09/18/20 00:47 09/18/20 18:07 Acetaminophen 50 0 Mg Tablet PO 500 mg Q4H PRN Administration MILD PAIN OR INCR EASE TEMP Aspirin 325 mg 09/14/20 09:00 09/19/20 09:08 Aspirin 325 Mg E c Tablet PO 325 mg DAILY ARNAV Administration Chlordiazepoxide 20 mg 09/15/20 13:45 09/17/20 04:50 Chlordiazepoxide 10 Mg Capsule PO Not Given Q8H ARNAV Famotidine 20 mg 09/14/20 18:00 09/19/20 06:13 Famotidine 20 Mg Tablet PO 20 mg Q12H ARNAV Administration Folic Acid 1 mg 09/12/20 09:00 09/19/20 09:08 Folic Acid 1 Mg Tablet PO 1 mg DAILY ARNAV Administration Piperacillin Sod/T azobactam 50 mls @ 12.5 mls /hr 09/17/20 09:00 09/19/20 10:58 Sod 3.375 gm/ So dium Chloride IV Infused Q8H ARNAV Infusion Protocol Metoprolol Succina te 100 mg 09/12/20 07:00 09/19/20 06:13 Metoprolol Succi ana laura Er (24 Hr) 10 0 Mg Tablet PO 100 mg DAILY@07 ARNAV Administration Multivitamins Ther apeutic 1 tab 02/14/21 09:00 09/19/20 09:08 Multivitamin The rapeutic Tablet PO 1 tab DAILY ARNAV Administration Thiamine Mononitra te 100 mg 09/12/20 09:00 09/19/20 09:08 Thiamine 100 Mg Tablet PO 100 mg DAILY ARNAV Administration Vitals/I&O/Wt Last Vital Signs Temp 97.8 F 09/20/20 15:21 Pulse 73 09/20/20 15:21 Resp 18 09/20/20 15:21 BP 128/87 09/20/20 15:21 Pulse Ox 96 09/20/20 15:21 09/20/20 09/20/20 09/20/20 06:59 14:59 22:59 Intake Total 120 / 1098.75 1340 / 1340 Output Total 400 / 850 150 / 150 Balance -280 / 248.75 1190 / 1190 Physical Exam Const: COMMON NORMALS: no acute distress ORIENTATION/CONSCIOUSNESS: Yes awake, Yes oriented to person, Yes oriented to place and Yes confused; not oriented to time HENMT: COMMON NORMALS: normocephalic HEAD & SCALP: normocephalic Neck/C-Spine: COMMON NORMALS: no JVD Resp: COMMON NORMALS: normal respiratory effort, No retractions, No use of accessory muscles and clear to auscultation bilaterally AUSCULTATION: clear to auscultation bilaterally Cardio: COMMON NORMALS: no JVD, regular rate, regular rhythm, S1 normal heart sound present and S2 normal heart sound present RATE: regular rate RHYTHM: regular rhythm HEART SOUNDS: S1 normal heart sound present and S2 normal heart sound present GI: COMMON NORMALS: Normal to inspection, nondistended, normoactive bowel sounds present, Soft to palpation, non-tender, No hepatosplenomegaly present, no masses and no bruits PALPATION: Yes Soft to palpation and Yes No hepatosplenomegaly present Extremity: COMMON NORMALS: capillary refill normal, no clubbing, cyanosis or edema and no calf tenderness NARRATIVE EXTREMITY EXAM: 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 edema, 1+ 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, pneumatic drum sander strength on the right is 3 out of 5 compared to 5 of the 5 on the left 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 when raise is held up, but eventually it does drift and hit the bed Does have some degree of strength at the shoulder joint, but does complain of pain as soon as his shoulder, or his hands are palpated Neuro: SENSORIUM/ORIENTATION: Yes oriented to person, Yes oriented to place and No oriented to time CRANIAL NERVES: Yes CN normal except as noted SPEECH: speech normal MOTOR EXAM: 5/5 motor strength present throughout OTHER: 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 edema, 1+ 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, pneumatic drum sander strength on the right is 3 out of 5 compared to 5 of the 5 on the left 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 when raise is held up, but eventually it does drift and hit the bed Does have some degree of strength at the shoulder joint, but does complain of pain as soon as his shoulder, or his hands are palpated Psych: COMMON NORMALS: mental status grossly normal Urinary Catheter Management^: Haq: Cath Placed During This Visit: yes, but has since been removed by the nurse Reason for Continuing Indwelling Catheter: Decision to DC Catheter Urinary Catheter Date of Insertion: 09/12/20 Urinary Catheter Time of Insertion: 16:34 Date Urinary Catheter Removed: 09/20/20 Time Urinary Catheter Discontinued: 11:02 Data : 09/20/20 05:06 09/20/20 05:06 Micro: Microbiology 09/20/20 12:04 Blood Culture - Preliminary Blood SPECIMEN COLLECTED 09/20/20 12:04 Blood Culture - Preliminary Blood SPECIMEN COLLECTED A&P Assessment and plan (1) Closed fracture of left hip: Status: Acute (2) UTI (urinary tract infection): Status: Acute (3) Metabolic encephalopathy: Status: Acute (4) Anemia: Status: Acute (5) Alcohol abuse: Status: Acute (6) Benign essential hypertension with target blood pressure below 140/90: Status: Acute (7) Premature ventricular contractions: Status: Acute (8) Somnolence, daytime: Status: Acute (9) Abnormal nuclear stress test: Status: Acute (10) Mixed hyperlipidemia: Status: Acute Additional A&P Information Left hip intertrochanteric fracture. Status post ORIF by Dr. Glaser. Waiting for placement to acute rehab facility. Continue PT OT. Continue pain management. Acute encephalopathy: -Likely multifactorial secondary to alcohol withdrawal -Patient's UA shows continued UTI, given persistent confusion, will expand antibiotic coverage to Zosyn, will do a renal ultrasound, repeat urine cultures -Another possibility is a patient could be experiencing Warnicke's encephalopathy, although I cannot discern any ophthalmologic changes or ataxia, nonetheless we will start on thiamine 100 mg IV twice daily -Continue B12, folic acid -Neurochecks, aspiration precautions -Chest x-ray is unremarkable for UTI -First set of blood cultures negative, repeat blood cultures -Repeat urine cultures -Serum sodium is 147, given his pitting edema, will give a trial of Lasix 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 pain, swelling, now seems as if he is not willing to move his right upper extremity as he is in pain. X-rays are negative for fractures. Doppler was negative for DVT. Continue PT OT and pain management -Pain and limited range of motion is in the shoulder, the arm, the hand Decreased right upper extremity mobility, with encephalopathy, I did go ahead and perform a stroke -CT of the head was negative for acute stroke, negative for intracranial bleed -CTA of the head and neck did show high-grade proximal ICA stenosis with a tiny residual lumen, stenosis measures 80 to 85% with reduced caliber ICA, on the right -Thus this would not explain his symptoms on the right upper extremity -He is on aspirin, statin which we will continue Right ICA stenosis, high-grade, continue aspirin, statin, will need an outpatient follow-up with Dr. Baugh for surgical intervention at some point DVT prophylaxis. Lovenox Acute blood loss anemia secondary to expected acute blood loss secondary to #1 and possible underlying slow GI bleed. Received iron replacement. Continue monitoring. Stable. Will add Protonix, Carafate Continue to hold Lovenox, given concerns for anemia, currently on aspirin 325 No evidence of active or significant bleeding. Discussed with Dr. Harvey. Will undergo GI evaluation after discharge. DT and EtOH withdrawals. Last CIWA score 4. Continue thiamine replacement. CIWA protocol as needed. Dehydration and mild hypernatremia. Continue to monitor Hypokalemia. Replace and monitor Hypertension. Well-controlled. Continue current management. DVT prophylaxis SCDs, aspirin 3251` The plan of care was discussed with the patient and nursing staff. 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
[2020-09-20] MEDS: cyanocobalamin 1,000 mcg Tablet 1000 MCG PO (17:31)
[2020-09-20] MEDS: atorvastatin 40 mg Tablet PO (17:31)
[2020-09-20] MEDS: piperacillin-tazobactam 3.375 GM in sodium chloride 0.9% (plus) 50 ML IV (17:32)
--- NOTE | 2020-09-20 21:37 | CTR_ITS ---
PROCEDURE INFORMATION: Exam: CT Head Without Contrast Exam date and time: 09/20/2020 9:38 PM Age: 65 years old Clinical indication: Altered mental status/memory loss; Additional info: Stroke like symptoms TECHNIQUE: Imaging protocol: Computed tomography of the head without contrast. Radiation optimization: All CT scans at this facility use at least one of these dose optimization techniques: automated exposure control; mA and/or kV adjustment per patient size (includes targeted exams where dose is matched to clinical indication); or iterative reconstruction. Other technique: STROKE PROTOCOL was implemented. COMPARISON: CT head wo con* [id number] 09/20/2020 11:49 AM RADIATION DOSE METRICS: Total DLP (mGy-cm): 3177.26 FINDINGS: Brain: Mild diffuse cortical volume loss. Very mild hypodensities in supratentorial periventricular and subcortical white matter, consistent with microangiopathy. No intracranial hemorrhage. Cerebral ventricles: No ventriculomegaly. Bones/joints: Unremarkable. No acute fracture. Paranasal sinuses: Visualized sinuses are unremarkable. No fluid levels. Mastoid air cells: Visualized mastoid air cells are well aerated. Vasculature: No hyperdense artery. Soft tissues: Unremarkable. CT/CT head wo con* [id number] IMPRESSION: 1. No acute intracranial abnormality. ASSESSMENT: ASPECTS ([place] Stroke Program Early CT Score) is 10. Radiation Dose CTDIVOL = (mGy): DLP = 3177.26 (mGy-cm)
[2020-09-20 21:49] LABS: Glucose Point of Care 117 mg/dL (70-110)
[2020-09-20 21:51] LABS: INR 1.74 (0.8-1.2)
[2020-09-20 22:02] LABS: LDL Cholesterol Direct 57 mg/dL (0-100)
[2020-09-20 22:03] LABS: Alanine Aminotransferase 31 U/L (0-41); Albumin Level 2.4 g/dL (3.5-5.2); Alkaline Phosphatase 79 IU/L (40-130); Aspartate Amino Transferase 43 U/L (0-40); Blood Urea Nitrogen 19 mg/dL (8-23); Calcium 8.8 mg/dL (8.5-10.5); Carbon Dioxide 20 mmol/L (22-29); Chloride 110 mmol/L (98-107); Globulin 4.1 g/dL (1.3-4.6); Glucose 107 mg/dL (65-115); Osmolality Calculated 305 mOsm/kg (285-295); Sodium 146 mmol/L (136-145); Total Bilirubin 0.6 mg/dL (0.15-1.2); Total Protein 6.5 g/dL (6.6-8.7)
[2020-09-20 22:07] LABS: Anion Gap 19.6 (5-19); Potassium 3.6 mmol/L (3.5-5.1)
--- NOTE | 2020-09-20 22:25 | PC.NURSE ---
Received bedside report on patient from Vandana HERR, and Med/stationary plant operators. Patient placed on child monitor, blood pressure cuff, sat monitor. Sitter at bedside.
--- NOTE | 2020-09-20 22:28 | PM.EVENT ---
Event Note Event Note: Rapid response was called for altered mental status On arrival blood glucose was normal 117, patient was not responding to verbal command, he was not opening eyes to verbal command as well noxious stimuli revealed grimacing of face and some withdrawal of extremities on giving painful stimuli, code stroke was called Dr. Hayes was updated, we were able to face time and do a clinical exam, patient was exhibiting horizontal nystagmus Heart rate 160s, EKG revealed A. fib RVR, Patient was afebrile with good blood pressure Variable S1-S2 was Doing well on room air Stat ABG revealed normal pH, no hypoxia, no retention of CO2 Assessment: CT head was done which did not show any intracranial hemorrhage, CTA head and neck was done around noon for confusion as well, his last well-known time was about 15-20 minutes ago when he was getting Carafate CTA head and neck findings were reviewed with Dr. Hayes who was familiar with the patient She recommended IV fluid hydration for ICA stenosis and neurochecks every 4 for possible breakthrough seizures By the time patient came back from CT scan of his head he was able to open his eyes on verbal command, was communicating with the nurses, and he told me that he is feeling fine, nystagmus improved Plan Continue IV fluid hydration normal saline at 75 mL/h Neurochecks every 4 hours Initiate dual antiplatelet therapy Start amnio drip for paroxysmal A. fib current heart rate 150s systolic blood pressure ranging between 1 10-1 20s, Hypokalemia, hypomagnesemia noted, magnesium repleted, potassium repleted Transfer to ICU
[2020-09-20 22:37] LABS: Basophils # 0.1 10^3/uL (0.0-0.1); Basophils % 0.6 %; Eosinophils # 0.6 10^3/uL (0.0-0.8); Eosinophils % 5.2 %; Hematocrit 32.8 % (42.0-52.0); Lymphocytes # 1.2 10^3/uL (0.8-4.8); Lymphocytes % 10.4 %; Mean Corpuscular HGB Conc 30.5 g/dL (30.0-36.0); Mean Corpuscular Hemoglobin 34.6 pg (28.0-34.0); Mean Corpuscular Volume 113.5 fL (80-94); Mean Platelet Volume 13.5 fL (7.4-10.4); Monocytes % 8.4 %; Neutrophils % 74.9 %; Nucleated Red Blood Cells % 0.2 %; Platelet Count 264 10^3/cmm (130-400); Red Blood Count 2.89 10^6/uL (4.1-5.3); Red Cell Distribution Width 14.8 % (12.1-15.1); White Blood Count 11.4 10^3/uL (4.0-10.0)
[2020-09-20 23:02] LABS: Slide Review Slide Review Perform
[2020-09-20] MEDS: magnesium sulfate premix 2 GM/50 ML PIGGYBACK IV (23:12)
[2020-09-20] MEDS: lidocaine 1% 5 ML in potassium chloride premix 100 ML 25 ML IV (23:29)
[2020-09-21] VITALS (244 sets, daily range): BP systolic 85–148; BP diastolic 58–116; PULSE 76–144; RESP 12–35; TEMP 36.6–37.7; O2SAT 75–100
--- NOTE | 2020-09-21 00:18 | PC.NURSE ---
This RN administered carafate to patient at 2103. At 2108 this RN and SHABNAM Mitchell went in to change patient as he had urinated on himself. Upon entering room Pt was found to be unresponsive. A sternal rub, finger stick, and vitals were performed. At that time a rapid response was called. Dr. Madrid came to Pt's room and made the decision to call a stroke alert. Pt was given 10mg of cardizem and taken to CT. After CT, Pt was brought back to floor and started on a 150mg amiodarone bolus. At that time the decision was made to transfer to ICU.
[2020-09-21 01:24] LABS: ABG PCO2 28.6 mmHg (35-45); ABG PH Result 7.49 (7.35-7.45); Base Excess ABG -1.2 mmol/L (-2.0-2.0); HCO3 ABG 21.6 mmol/L (22-26); PO2 ABG 96.9 mmHg (80.0-100.0)
[2020-09-21 01:25] LABS: Arterial Blood Gas Hematocrit 28.7 % (42-52); Blood Gas Sample Type ARTERIAL; Oxygen Device NRB
[2020-09-21] MEDS: piperacillin-tazobactam 3.375 GM in sodium chloride 0.9% (plus) 50 ML IV ×3 (04:00→17:49)
[2020-09-21] MEDS: metoprolol succinate ER (24 HR) 100 mg Tablet PO (06:04)
[2020-09-21] MEDS: sucralfate 1 gm Tablet PO ×4 (06:06→20:00)
[2020-09-21 06:15] LABS: Alanine Aminotransferase 31 U/L (0-41); Albumin Level 2.1 g/dL (3.5-5.2); Alkaline Phosphatase 81 IU/L (40-130); Anion Gap 15.9 (5-19); Aspartate Amino Transferase 40 U/L (0-40); Basophils % 0.5 %; Blood Urea Nitrogen 19 mg/dL (8-23); C Reactive Protein 184.1 mg/L (0.0-4.9); Calcium 8.3 mg/dL (8.5-10.5); Carbon Dioxide 21 mmol/L (22-29); Chloride 113 mmol/L (98-107); Eosinophils # 0.4 10^3/uL (0.0-0.8); Eosinophils % 4.8 %; Globulin 3.7 g/dL (1.3-4.6); Glucose 102 mg/dL (65-115); Hematocrit 27.4 % (42.0-52.0); Hemoglobin 8.5 g/dL (11.7-16.6); Lymphocytes # 0.6 10^3/uL (0.8-4.8); Lymphocytes % 6.9 %; Magnesium 2.5 mg/dL (1.7-2.3); Mean Corpuscular Volume 112.8 fL (80-94); Mean Platelet Volume 13.5 fL (7.4-10.4); Monocytes # 0.6 10^3/uL (0.2-0.9); Monocytes % 7.4 %; Neutrophils # 6.37 10^3/uL (1.8-7.7); Neutrophils % 79.6 %; Nucleated Red Blood Cells % 0 %; Osmolality Calculated 304 mOsm/kg (285-295); Phosphorus 4.6 mg/dL (2.5-4.5); Platelet Count 244 10^3/cmm (130-400); Potassium 3.9 mmol/L (3.5-5.1); Red Blood Count 2.43 10^6/uL (4.1-5.3); Red Cell Distribution Width 14.9 % (12.1-15.1); Sodium 146 mmol/L (136-145); Total Bilirubin 0.3 mg/dL (0.15-1.2); Total Protein 5.8 g/dL (6.6-8.7)
[2020-09-21 06:17] LABS: Procalcitonin 0.77 ng/mL (0-0.5)
[2020-09-21 06:53] LABS: Slide Review Slide Review Perform
--- NOTE | 2020-09-21 08:25 | USCV_ITS ---
Ethan Hardy Age: 65 Gender: M : 1955 Exam Date: 09/21/2020 09:29 Ordering Phys: Oniel Oliveira MD Technologist: Nj Null [place] [facility] [place]: AFIB BP: 99 / 83 HR: 121 Rhythm: Sinus Technical Quality: Fair MEASUREMENTS (Male / Female) Normal Values 2D ECHO LV Diastolic Diameter PLAX 4.0 cm 4.2 - 5.9 / 3.9 - 5.3 cm LV Systolic Diameter PLAX 2.9 cm IVS Diastolic Thickness 0.6 cm 0.6 - 1.0 / 0.6 - 0.9 cm IVS Systolic Thickness 1.1 cm LVPW Diastolic Thickness 1.0 cm 0.6 - 1.0 / 0.6 - 0.9 cm LVPW Systolic Thickness 1.0 cm LVOT Diameter 2.1 cm LV Ejection Fraction 2D Teich 49.5 % LV Ejection Fraction MOD 2C 32.6 % LV Ejection Fraction 2C AL 32.0 % LA Diameter 3.3 cm LA Width 4.5 cm LA Height 4.9 cm RA Width 4.2 cm RA Height 5.7 cm Aorta at Sinotubular Diameter 3.0 cm M-MODE LV Diastolic Diameter MM 5.1 cm 4.2 - 5.9 / 3.9 - 5.3 cm LV Systolic Diameter MM 3.6 cm LV Ejection Fraction MM Teich 54.3 % IVS Diastolic Thickness MM 0.9 cm 0.6 - 1.0 / 0.6 - 0.9 cm IVS Systolic Thickness MM 1.4 cm LVPW Diastolic Thickness MM 0.9 cm 0.6 - 1.0 / 0.6 - 0.9 cm LVPW Systolic Thickness MM 1.7 cm RV Diastolic Diameter MM 1.2 cm Aortic Annulus Diameter 3.3 cm LA Ao Ratio MM 1.0 MV E Point Septal Separation 0.7 cm DOPPLER AV Peak Velocity 103.3 cm/s LVOT Peak Velocity 87.0 cm/s AV Area Cont Eq vti 2.9 cm squared AV Area Cont Eq pk 3.1 cm squared MV Area PHT 5.0 cm squared Mitral E to A Ratio 2.1 MV E' Velocity 53.5 cm/s Mitral E to MV E' Ratio 13.1 Mitral E to LV E' Lateral Ratio 10.1 Mitral E to LV E' Septal Ratio 18.7 TR Peak Velocity 155.3 cm/s TR Peak Gradient 9.7 mmHg TV Peak E Velocity 75.0 cm/s Right Atrial Pressure 3.0 mmHg Pulmonary Artery Systolic Pressu 12.7 mmHg PV Peak Velocity 110.0 cm/s FINDINGS Left Ventricle Mildly increased left ventricular cavity size. Moderately decreased left ventricular systolic function. Left ventricular ejection fraction is estimated at 40 %. In the presence of atrial fibrillation diastolic function cannot be assessed accurately. Right Ventricle The right ventricle is normal in size and function. Right Atrium The right atrium is normal in size. Left Atrium The left atrium is normal in size. Mitral Valve Structurally normal mitral valve without significant stenosis or prolapse. There is no mitral regurgitation. Aortic Valve Structurally normal aortic valve without significant sclerosis or stenosis. There is no aortic regurgitation. Tricuspid Valve Structurally normal tricuspid valve without significant stenosis or regurgitation. Pulmonary artery systolic pressure is normal. Pulmonic Valve Structurally normal pulmonic valve without significant stenosis. There is no pulmonic regurgitation. Pericardium Normal pericardium without effusion. Aorta Normal ascending aorta dimension. CONCLUSIONS 1-Mildly increased left ventricular cavity size. Moderately decreased left ventricular systolic function. Left ventricular ejection fraction is estimated at 40 %. In the presence of atrial fibrillation diastolic function cannot be assessed accurately. 2-There is no pericardial effusion. 3-Pulmonary artery systolic pressure is within normal limits. 4-No significant valve abnormalities. 6-Right atrial pressure is around 5 mm of mercury. 7-There are no prior echocardiogram studies to compare. Nicholas Frankel MD (Electronically Signed) Final Date: 21 September 2020 19:15 S
[2020-09-21 08:49] LABS: Uric Acid 8.6 mg/dL (3.4-7.0)
--- NOTE | 2020-09-21 09:16 | PM.SAN ---
Stroke Alert Activation ED Arrival Date: 09/20/20 Last Known Normal/at Baseline: < 1 hour ago Other Last Known Well Infomation: I was called stat for stroke team at 212. I immediately called second floor as the text indicated that the patient was in room 260. I talked with the charge nurse and asked to speak to the witness. The patient care nurse reported that she came in and administered Carafate 30 minutes ago and at that time the patient was confused, as he had been for several days, but he was moving all 4 extremities well, talked with her, took his medication. She returned to his room 20 or 30 minutes later to find that he would not respond to her, was not moving and she could not wake him up. She called Dr. See, who came immediately to the bedside. I then talked with Dr. See, who revealed that initially when he arrived the patient had a left gaze preference and he thought he was not moving the left side is vigorously. I asked to be placed on FaceTime. By that time the patient had full eye movements and no gaze preference. He was agitated and moving about slightly. He had no facial weakness. He cried out in response to deep nailbed pressure in all 4 extremities and he withdrew weakly in all 4 extremities. His exam appeared to be nonfocal. He was on his way to CAT scan and I asked to be called back so that I could review the CAT scan. Dr. See had time to review the chart while the patient was being scanned and discovered that this was the same patient that Dr. Santillan had called me about earlier in the day. Dr. Oliveira cast a wide net trying to figure out why the patient was confused, and in the process he did a CT angiogram that showed severe stenosis of the right carotid artery. Since that was not symptomatic I recommended no further evaluation of that and offered to see him as an outpatient after discharge. By the time the patient finished his CAT scan, he was back to baseline. He was talking and calm and able to converse with Dr. See. We agreed that it was of great likelihood that the patient had an unobserved seizure to account for his profound confusion with rapid clearing. His symptoms were not consistent with an ischemic stroke. He has a long history of atrial fibrillation and is not currently on anticoagulation because he had hip surgery. His CT scan of the head showed diffuse atrophy. He has a history of alcoholism. He was admitted for intertrochanteric fracture of the left hip and was pinned on 09/13/2020 uneventfully. Stroke Alert Activation Time: 21:27 Stroke MD @ Bedside Time: 21:28 NIH Stroke Scale Time: 21:30 NIH stroke score NIHSS: Level Of Consciousness - 1a: 1 Level Of Consciousness Questions - 1b: Neither Correct Level Of Consciousness Commands - 1c: Neither Correct Best Gaze - 2: Normal Visual Christiansen - 3: No Visual Loss (He was too agitated to determine) Facial Palsy - 4: Normal Motor Arm Right - 5: No Drift Motor Arm Left - 5: No Drift Motor Leg Right - 6: No Drift Motor Leg Left - 6: No Drift Limb Ataxia - 7: Absent Sensory - 8: Normal (Withdrawal from nailbed pressure all 4 extremities) Best Language - 9: Mute; Global Aphasia Dysarthia - 10: Normal Extinction And Inattention - 11: 0 Score: Total Score: 8 Stroke Alert Data/Treatment Time to CT of Head: 21:37 CT Results Time: 22:08 CT Impression: Diffuse atrophy tPA Contraindication: tPA Contraindication: Treatment not indcated Critical Care Time Critical Care Time: 30 - 74 mins A&P Assessment and plan (1) Toxic metabolic encephalopathy: The patient has a nonfocal exam but previously had left gaze preference. He he is diffusely encephalopathic at the time of my dam on telemetry. Recommend close observation in case the patient has a seizure. Risk factors for seizure include history of chronic alcoholism. He has asymptomatic right carotid stenosis that should be addressed as an outpatient. We will need to determine his risk for surgery versus risk without surgery. Thanks for consulting me. 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
--- NOTE | 2020-09-21 09:30 | PC.CHAP ---
Pastoral Care Encounter/Spiritual Assessment Type of Contact [] Declined campus wellness coordinator visit [] Patient/Family/Request visit [] Outpatient visit [] Follow-up visit [] Physician referral [] Code/Alert [x] Routine visit [] Staff referral [] Actively dying [] Patient sleeping [] Family support [] [] Out of room [] Palliative care [] [] Receiving care in room [] Pre-surgical visit [] Trauma [] Long length of stay [x] ICU visit [] Other: Relational/Emotional Strength [] Patient feels connected with others/family/visitors/staff [] Distress [] Loneliness/isolation [] Abandonment Spirituality of Patient [] Person of Michelle [] Attends Buddhism of their Michelle [] Believes in Prayer [] Reads Bible or Mosque materials [] There are Spiritual issues to be addressed Java Analyst Interventions [x] Prayer [x] Active listening [x] Non-anxious presence [x] Spiritual/emotional support [] Crisis/trauma care [] Spiritual counseling [] Bereavement support [] Provided bereavement packet [] Provided Bible/devotional materials [] Provided toy/stuffed animal, coloring book to patient or family member [] Provided Communion [] Anointing/Schlater [] Salvation [x] Completed spiritual assessment [] Other: Impact on Illness or Injury [] Angry [] Fearful [x] Anxious [] Often cries [] Exhaustion [] Unable to work [] Unable to attend pentecostalism [] Unable to walk/stand [] Unable to read [] Unable to drive [] Unable to eat/drink [] Unable to sleep [] Unable to be with family [] Patient intubated [] Other: Summary patient has sitter.. patient requested glass of tea... campus wellness coordinator made request to nurse and said request can be done. patient felt tea could calm him a little Time spent with patient 10 min
[2020-09-21] MEDS: amiodarone 200 mg Tablet 400 MG PO ×2 (09:31→17:50)
[2020-09-21] MEDS: multivitamin therapeutic Tablet 1 TAB PO (09:33)
[2020-09-21] MEDS: folic acid 1 mg Tablet PO (09:33)
[2020-09-21] MEDS: cyanocobalamin 1,000 mcg Tablet 1000 MCG PO (09:33)
[2020-09-21] MEDS: thiamine 100 mg Tablet PO (09:34)
[2020-09-21] MEDS: pantoprazole DR 40 mg Tablet PO ×2 (09:34→17:50)
[2020-09-21] MEDS: LORazepam 2 mg Tablet PO (09:34)
[2020-09-21] MEDS: acetaminophen 500 mg Tablet PO (09:37)
[2020-09-21] MEDS: aspirin 81 mg EC Tablet PO (09:37)
[2020-09-21] MEDS: heparin drip 25,000 UNIT/500 ML PREMIX 29 UNIT IV (09:38)
--- NOTE | 2020-09-21 13:38 | PM.PN ---
Subjective Subjective: Interval history: This morning patient was examined, he is in the ICU, he is much more alert, he is awake, is oriented to person, to place, not to time, knows Mamta is a president, he follows all commands, for the most part he does answer questions appropriately, however he does going to long-winded stories that sometimes do not make sense, I cannot discern any facial droop, no slurring of her speech, no weakness, he does have right hand and wrist pain this morning, he tells me he does not want to move it because he has pain, he has a history of gout, it typically occurs in his feet and his knees, is never occurred anywhere else, he cannot remember when his last drink of alcohol was, he denies ever having an seizure, no history of prior strokes, he has a history of atrial fibrillation that is documented, but he is not sure why he is not on a blood thinner, his only complaints is that he has dry lips, and would like to have ice tea this morning Overnight rapid response was called, as patient was unresponsive, concerns were initially for a stroke, but his head CT showed no acute stroke, but there was concerns for possible seizure-like activity, he is not had any seizure-like activity while in the ICU, has not received any seizure medications Medications: Reviewed: Yes Medication Review Details: Generic Name Dose Route Start Last Admin Trade Name Pj PRN Reason Stop Dose Admin Acetaminophen 500 mg 09/18/20 00:47 09/18/20 18:07 Acetaminophen 50 0 Mg Tablet PO 500 mg Q4H PRN Administration MILD PAIN OR INCR EASE TEMP Aspirin 325 mg 09/14/20 09:00 09/19/20 09:08 Aspirin 325 Mg E c Tablet PO 325 mg DAILY ARNAV Administration Chlordiazepoxide 20 mg 09/15/20 13:45 09/17/20 04:50 Chlordiazepoxide 10 Mg Capsule PO Not Given Q8H ARNAV Famotidine 20 mg 09/14/20 18:00 09/19/20 06:13 Famotidine 20 Mg Tablet PO 20 mg Q12H ARNAV Administration Folic Acid 1 mg 09/12/20 09:00 09/19/20 09:08 Folic Acid 1 Mg Tablet PO 1 mg DAILY ARNAV Administration Piperacillin Sod/T azobactam 50 mls @ 12.5 mls /hr 09/17/20 09:00 09/19/20 10:58 Sod 3.375 gm/ So dium Chloride IV Infused Q8H [facility] Infusion Protocol Metoprolol Succina te 100 mg 09/12/20 07:00 09/19/20 06:13 Metoprolol Succi ana laura Er (24 Hr) 10 0 Mg Tablet PO 100 mg DAILY@07 ARNAV Administration Multivitamins Ther apeutic 1 tab 09/12/20 09:00 09/19/20 09:08 Multivitamin The rapeutic Tablet PO 1 tab DAILY ARNAV Administration Thiamine Mononitra te 100 mg 09/12/20 09:00 09/19/20 09:08 Thiamine 100 Mg Tablet PO 100 mg DAILY ARNAV Administration Vitals/I&O/Wt Last Vital Signs Temp 97.8 F 09/21/20 10:00 Pulse 107 H 09/21/20 12:00 Resp 21 H 09/21/20 12:00 BP 109/84 09/21/20 12:00 Pulse Ox 98 09/21/20 12:00 09/20/20 09/21/20 09/21/20 22:59 06:59 14:59 Intake Total 1250 / 2590 403.95 / 2993.95 1468.75 / 1468.75 Balance 1250 / 2440 403.95 / 2843.95 1468.75 / 1468.75 Physical Exam Const: COMMON NORMALS: no acute distress ORIENTATION/CONSCIOUSNESS: Yes awake, Yes oriented to person and Yes oriented to place; not oriented to time HENMT: COMMON NORMALS: normocephalic HEAD & SCALP: normocephalic Neck/C-Spine: COMMON NORMALS: no JVD Resp: COMMON NORMALS: normal respiratory effort, No retractions, No use of accessory muscles and clear to auscultation bilaterally AUSCULTATION: clear to auscultation bilaterally Cardio: COMMON NORMALS: no JVD, regular rate, regular rhythm, S1 normal heart sound present and S2 normal heart sound present RATE: regular rate RHYTHM: regular rhythm HEART SOUNDS: S1 normal heart sound present and S2 normal heart sound present GI: COMMON NORMALS: Normal to inspection, nondistended, normoactive bowel sounds present, Soft to palpation, non-tender, No hepatosplenomegaly present, no masses and no bruits PALPATION: Yes Soft to palpation and Yes No hepatosplenomegaly present Extremity: COMMON NORMALS: capillary refill normal, no clubbing, cyanosis or edema, no calf tenderness and no pedal edema NARRATIVE EXTREMITY EXAM: 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 edema, 1+ 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, 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 5 compared to 5 of the 5 on the left 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 when raise is held up, but eventually it does drift and hit the bed Does have some degree of strength at the shoulder joint, but does complain of pain as soon as his shoulder, or his hands are palpated Neuro: COMMON NORMALS: CN's II-XII intact bilaterally, moves all extremities, no focal motor deficits and no sensory deficits noted SENSORIUM/ORIENTATION: Yes oriented to person, Yes oriented to place and No oriented to time SPEECH: speech normal MOTOR EXAM: 5/5 motor strength present throughout OTHER: 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 edema, 1+, primarily at the hand and wrist 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, 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 5 compared to 5 of the 5 on the left primarily due to pain 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 when raise is held up, but eventually it does drift and hit the bed, when asked why he cannot hold up his arm he tells me that he is in pain His pain is primarily during palpation of the wrist, and the hand joints, with swelling, and erythema Psych: COMMON NORMALS: mental status grossly normal Urinary Catheter Management^: Haq: Cath Placed During This Visit: yes, but has since been removed by the nurse Reason for Continuing Indwelling Catheter: Decision to DC Catheter Urinary Catheter Date of Insertion: 09/12/20 Urinary Catheter Time of Insertion: 16:34 Date Urinary Catheter Removed: 09/20/20 Time Urinary Catheter Discontinued: 11:02 Data : 09/21/20 04:27 09/21/20 04:27 Micro: Microbiology 09/20/20 12:04 Blood Culture - Preliminary Blood NEGATIVE TO DATE 09/20/20 12:04 Blood Culture - Preliminary Blood NEGATIVE TO DATE 09/20/20 10:50 Urine Culture - Preliminary Urine Catheterized A&P Assessment and plan (1) Closed fracture of left hip: Status: Acute (2) UTI (urinary tract infection): Status: Acute (3) Metabolic encephalopathy: Status: Acute (4) Anemia: Status: Acute (5) Alcohol abuse: Status: Acute (6) Benign essential hypertension with target blood pressure below 140/90: Status: Acute (7) Premature ventricular contractions: Status: Acute (8) Somnolence, daytime: Status: Acute (9) Abnormal nuclear stress test: Status: Acute (10) Mixed hyperlipidemia: Status: Acute Additional A&P Information Left hip intertrochanteric fracture. Status post ORIF by Dr. Glaser. Waiting for placement to acute rehab facility. Continue PT OT. Continue pain management. Atrial fibrillation; -As per review of cardiology notes patient has been complaining of palpitations on and off, had a Holter ordered back in September of last year which was unremarkable -Did have frequent PVCs -Does have a documented history of atrial fibrillation, but unclear where this came from -Developed A. fib with RVR overnight, heart rates in the 160s -Treated with Cardizem, and amiodarone -Currently in A. fib heart rates 100s to 110s Plan: -Currently on amiodarone drip, transition to p.o. amiodarone -Start on heparin drip -Cardiac echocardiogram ordered Acute encephalopathy: -Patient was unresponsive last night with horizontal gaze, no significant evidence of a stroke, has no focal neurologic deficits, symptoms more generalized, CT no acute hemorrhage or stroke -It is unclear if patient had a seizure episode last night, will hold off on antiseizure medication -Initially his encephalopathy was thought to be related to UTI and alcohol withdrawal -Currently on Zosyn for UTI as his UA shows persistent evidence of UTI, renal ultrasound negative for obstructive uropathy -Currently patient's encephalopathy is minimal, but I do see nystagmus, he does seem to confabulate, has episodes of confusion, i am concerned patient symptomatology is likely 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 X-rays are negative for fractures. Doppler was negative for DVT. Continue PT OT and pain management -Does have elevated uric acid levels, has a history of gout, has alcoholism, possible gouty attack -Will do a trial of Solu-Medrol to see if the pain improves On 09/20/2020 patient had decreased right upper extremity mobility, with encephalopathy, I did go ahead and perform a stroke evaluation -CT of the head was negative for acute stroke, negative for intracranial bleed -CTA of the head and neck did show high-grade proximal ICA stenosis with a tiny residual lumen, stenosis measures 80 to 85% with reduced caliber ICA, on the right -Thus this would not explain his symptoms on the right upper extremity -He is on aspirin, statin which we continued Right ICA stenosis, high-grade, continue aspirin, statin, will need an outpatient follow-up with Dr. Baugh for surgical intervention at some point DVT prophylaxis. Heparin Acute blood loss anemia secondary to expected acute blood loss secondary to #1 and possible underlying slow GI bleed. Received iron replacement. Continue monitoring. Stable. Will add Protonix, Carafate Given new onset atrial fibrillation, will go ahead and start patient on heparin drip, monitor hemoglobins closely, Hemoccult stool DT and EtOH withdrawals. Out of window Dehydration and mild hypernatremia. Continue to monitor Hypokalemia. Replace and monitor Hypertension. Well-controlled. Continue current management. DVT prophylaxis SCDs, aspirin 81 mg, heparin The plan of care was discussed with the patient and nursing staff. Attestations Medical Necessity Statement*: Patient requires hospitalization for left hip fracture, now with acute encephalopathy, concerning for Warnicke's encephalopathy, possible seizure, new onset atrial fibrillation Coding Level of Care Code Acute Rate Supervisor for Chg Fwd Diagnoses Closed fracture of left hip S72.002A UTI (urinary tract infection) N39.0 Metabolic encephalopathy G93.41 Anemia D64.9 Alcohol abuse F10.10 Benign essential hypertension with target blood pressure below 140/90 I10 Premature ventricular contractions I49.3 Somnolence, daytime R40.0 Abnormal nuclear stress test R94.39 Mixed hyperlipidemia E78.2
[2020-09-21 14:43] LABS: Hematocrit 29.2 % (42.0-52.0); Hemoglobin 9.1 g/dL (11.7-16.6)
[2020-09-21 15:29] LABS: Partial Thromboplastin Time 104.1 SECONDS (23.9-36.7)
[2020-09-21] MEDS: dilTIAZem 30 mg Tablet PO ×2 (15:35→19:51)
[2020-09-21] MEDS: atorvastatin 40 mg Tablet PO (17:50)
[2020-09-21 19:02] LABS: Hematocrit 32.5 % (42.0-52.0)
[2020-09-21 21:51] LABS: Partial Thromboplastin Time 84.2 SECONDS (23.9-36.7)
--- NOTE | 2020-09-21 23:50 | PHA.FALL ---
A Pharmacy Consult Was Conducted For Ethan Hardy Due To: Campbell Fall Scale Risk Level: High Fall Risk On 09/21/20 20:00 And A Medication Fall Risk Score Greater Than 10. The Recommendations Are As Follows: Amiodarone: ZEE: 1,3,4,7,9,10 Lorazepam: ZEE: 1,3,4,5,6,8,10 Metoprolol: ZEE: 1,2,3,4,5,9,10 Medications which cause/contribute to: 1 = sedation/fatigue/lethargy 2 = decreased alertness 3 = postural/orthostatic hypotension 4 = dizziness 5 = decreased neuromuscular function/ataxia 6 = decreased memory/cognitive impairment 7 = blurred vision 8 = confusion 9 = arrhythmias 10 = syncope 11 = anemia
[2020-09-22] VITALS (288 sets, daily range): BP systolic 110–147; BP diastolic 75–103; PULSE 65–158; RESP 12–29; TEMP 36.6–36.9; O2SAT 74–100
[2020-09-22] MEDS: piperacillin-tazobactam 3.375 GM in sodium chloride 0.9% (plus) 50 ML IV ×2 (02:10→09:47)
[2020-09-22] MEDS: dilTIAZem 30 mg Tablet PO ×4 (02:10→21:02)
[2020-09-22 04:01] LABS: Hematocrit 26.4 % (42.0-52.0); Hemoglobin 8.3 g/dL (11.7-16.6); Lymphocytes # 0.4 10^3/uL (0.8-4.8); Lymphocytes % 4.9 %; Mean Corpuscular HGB Conc 31.4 g/dL (30.0-36.0); Mean Corpuscular Hemoglobin 35.3 pg (28.0-34.0); Mean Corpuscular Volume 112.3 fL (80-94); Mean Platelet Volume 13.3 fL (7.4-10.4); Monocytes # 0.1 10^3/uL (0.2-0.9); Neutrophils # 6.62 10^3/uL (1.8-7.7); Neutrophils % 93.3 %; Nucleated Red Blood Cells % 0 %; Platelet Count 250 10^3/cmm (130-400); Red Blood Count 2.35 10^6/uL (4.1-5.3); Red Cell Distribution Width 14.7 % (12.1-15.1); White Blood Count 7.1 10^3/uL (4.0-10.0)
[2020-09-22 04:24] LABS: Alanine Aminotransferase 25 U/L (0-41); Albumin Level 2.3 g/dL (3.5-5.2); Alkaline Phosphatase 79 IU/L (40-130); Anion Gap 12.7 (5-19); Aspartate Amino Transferase 23 U/L (0-40); Blood Urea Nitrogen 24 mg/dL (8-23); C Reactive Protein 105.8 mg/L (0.0-4.9); Calcium 8.2 mg/dL (8.5-10.5); Carbon Dioxide 20 mmol/L (22-29); Chloride 111 mmol/L (98-107); Globulin 3.7 g/dL (1.3-4.6); Glomerular Filtration Rate 84.4 mL/min (90-130); Glucose 117 mg/dL (65-115); Magnesium 2.1 mg/dL (1.7-2.3); Osmolality Calculated 295 mOsm/kg (285-295); Phosphorus 3.4 mg/dL (2.5-4.5); Potassium 3.7 mmol/L (3.5-5.1); Sodium 140 mmol/L (136-145); Total Bilirubin 0.3 mg/dL (0.15-1.2)
[2020-09-22 04:26] LABS: Partial Thromboplastin Time 83.6 SECONDS (23.9-36.7)
[2020-09-22 04:40] LABS: Slide Review Slide Review Perform
[2020-09-22] MEDS: heparin drip 25,000 UNIT/500 ML PREMIX 19 UNIT IV (05:49)
[2020-09-22] MEDS: metoprolol succinate ER (24 HR) 100 mg Tablet PO (06:01)
[2020-09-22] MEDS: sucralfate 1 gm Tablet PO ×4 (06:01→21:02)
[2020-09-22] MEDS: aspirin 81 mg EC Tablet PO (08:42)
[2020-09-22] MEDS: amiodarone 200 mg Tablet 400 MG PO ×2 (08:42→17:00)
[2020-09-22] MEDS: folic acid 1 mg Tablet PO (08:42)
[2020-09-22] MEDS: multivitamin therapeutic Tablet 1 TAB PO (08:42)
[2020-09-22] MEDS: pantoprazole DR 40 mg Tablet PO ×2 (08:42→17:00)
[2020-09-22] MEDS: cyanocobalamin 1,000 mcg Tablet 1000 MCG PO (08:42)
--- NOTE | 2020-09-22 09:14 | PC.CHAP ---
Pastoral Care Encounter/Spiritual Assessment Type of Contact [] Declined configuration engineer visit [] Patient/Family/Request visit [] Outpatient visit [] Follow-up visit [] Physician referral [] Code/Alert [x] Routine visit [] Staff referral [] Actively dying [] Patient sleeping [] Family support [] [] Out of room [] Palliative care [] [] Receiving care in room [] Pre-surgical visit [] Trauma [] Long length of stay [x] ICU visit [] Other: Relational/Emotional Strength [] Patient feels connected with others/family/visitors/staff [] Distress [] Loneliness/isolation [] Abandonment Spirituality of Patient [] Person of Michelle [] Attends Alevism of their Michelle [] Believes in Prayer [] Reads Bible or Roman Catholic materials [] There are Spiritual issues to be addressed Site Monitor Interventions [x] Prayer [x] Active listening [x] Non-anxious presence [x] Spiritual/emotional support [] Crisis/trauma care [] Spiritual counseling [] Bereavement support [] Provided bereavement packet [] Provided Bible/devotional materials [] Provided toy/stuffed animal, coloring book to patient or family member [] Provided Communion [] Anointing/[place] [] Salvation [x] Completed spiritual assessment [] Other: Impact on Illness or Injury [] Angry [] Fearful [] Anxious [] Often cries [] Exhaustion [] Unable to work [] Unable to attend anglican [] Unable to walk/stand [] Unable to read [] Unable to drive [] Unable to eat/drink [] Unable to sleep [] Unable to be with family [] Patient intubated [] Other: Summary patient setting up.. staff assisting with breakfast.. sitter present.. patient stronger, but still not totally cleared minded Time spent with patient 10 min
[2020-09-22 10:51] LABS: Hematocrit 27.8 % (42.0-52.0); Hemoglobin 8.7 g/dL (11.7-16.6)
[2020-09-22 11:58] LABS: Partial Thromboplastin Time 72.8 SECONDS (23.9-36.7)
--- NOTE | 2020-09-22 12:36 | PM.PN ---
Subjective Subjective: Interval history: Patient was examined this morning, he is much more alert, awake, follows commands, he is alert to person, place, he knows Mamta is a president, knows the year, he tells me that he recognizes that there is a lapse of time that he cannot remember, his right hand feels better this morning, he is able to move it with minimal pain, he feels that he is doing better this morning Medications: Reviewed: Yes Medication Review Details: Generic Name Dose Route Start Last Admin Trade Name Pj PRN Reason Stop Dose Admin Acetaminophen 500 mg 09/18/20 00:47 09/18/20 18:07 Acetaminophen 50 0 Mg Tablet PO 500 mg Q4H PRN Administration MILD PAIN OR INCR EASE TEMP Aspirin 325 mg 09/14/20 09:00 09/19/20 09:08 Aspirin 325 Mg E c Tablet PO 325 mg DAILY ARNAV Administration Chlordiazepoxide 20 mg 09/15/20 13:45 09/17/20 04:50 Chlordiazepoxide 10 Mg Capsule PO Not Given Q8H ARNAV Famotidine 20 mg 09/14/20 18:00 09/19/20 06:13 Famotidine 20 Mg Tablet PO 20 mg Q12H ARNAV Administration Folic Acid 1 mg 09/12/20 09:00 09/19/20 09:08 Folic Acid 1 Mg Tablet PO 1 mg DAILY ARNAV Administration Piperacillin Sod/T azobactam 50 mls @ 12.5 mls /hr 09/17/20 09:00 09/19/20 10:58 Sod 3.375 gm/ So dium Chloride IV Infused Q8H ARNAV Infusion Protocol Metoprolol Succina te 100 mg 09/12/20 07:00 09/19/20 06:13 Metoprolol Succi ana laura Er (24 Hr) 10 0 Mg Tablet PO 100 mg DAILY@07 ARNAV Administration Multivitamins Ther apeutic 1 tab 09/12/20 09:00 09/19/20 09:08 Multivitamin The rapeutic Tablet PO 1 tab DAILY ARNAV Administration Thiamine Mononitra te 100 mg 09/12/20 09:00 09/19/20 09:08 Thiamine 100 Mg Tablet PO 100 mg DAILY ARNAV Administration Vitals/I&O/Wt Last Vital Signs Temp 98.4 F 09/22/20 08:00 Pulse 118 H 09/22/20 10:00 Resp 22 H 09/22/20 10:00 BP 116/97 09/22/20 09:00 Pulse Ox 98 09/22/20 10:00 09/21/20 09/22/20 09/22/20 22:59 06:59 14:59 Intake Total 726.350 / 2245.100 713.40 / 2958.500 117.217 / 117.217 Output Total 550 / 550 2 / 552 Balance 176.350 / 1695.100 711.40 / 2406.500 117.217 / 117.217 Physical Exam Const: COMMON NORMALS: no acute distress ORIENTATION/CONSCIOUSNESS: Yes awake, Yes oriented to person and Yes oriented to place; not oriented to time HENMT: COMMON NORMALS: normocephalic HEAD & SCALP: normocephalic Neck/C-Spine: COMMON NORMALS: no JVD Resp: COMMON NORMALS: normal respiratory effort, No retractions, No use of accessory muscles and clear to auscultation bilaterally AUSCULTATION: clear to auscultation bilaterally Cardio: COMMON NORMALS: no JVD, regular rate, regular rhythm, S1 normal heart sound present and S2 normal heart sound present RATE: regular rate RHYTHM: regular rhythm HEART SOUNDS: S1 normal heart sound present and S2 normal heart sound present GI: COMMON NORMALS: Normal to inspection, nondistended, normoactive bowel sounds present, Soft to palpation, non-tender, No hepatosplenomegaly present, no masses and no bruits PALPATION: Yes Soft to palpation and Yes No hepatosplenomegaly present Extremity: COMMON NORMALS: capillary refill normal, no clubbing, cyanosis or edema, no calf tenderness and no pedal edema NARRATIVE EXTREMITY EXAM: 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 edema, 1+ 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, safety physician strength on the right is 3 out of 5 compared to 5 of the 5 on the left 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 when raise is held up, but eventually it does drift and hit the bed Does have some degree of strength at the shoulder joint, but does complain of pain as soon as his shoulder, or his hands are palpated OTHER: Right hand swelling and erythema significantly reduced today, can move the right hand and wrist without significant symptomatology, significant pain, Neuro: COMMON NORMALS: CN's II-XII intact bilaterally, moves all extremities, no focal motor deficits and no sensory deficits noted SENSORIUM/ORIENTATION: Yes oriented to person, Yes oriented to place and No oriented to time CRANIAL NERVES: Yes CN normal except as noted SPEECH: speech normal MOTOR EXAM: 5/5 motor strength present throughout OTHER: 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 edema, 1+, primarily at the hand and wrist 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, safety physician strength on the right is 3 out of 5 compared to 5 of the 5 on the left primarily due to pain 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 when raise is held up, but eventually it does drift and hit the bed, when asked why he cannot hold up his arm he tells me that he is in pain His pain is primarily during palpation of the wrist, and the hand joints, with swelling, and erythema Psych: COMMON NORMALS: mental status grossly normal Urinary Catheter Management^: Haq: Cath Placed During This Visit: yes, but has since been removed by the nurse Reason for Continuing Indwelling Catheter: Decision to DC Catheter Urinary Catheter Date of Insertion: 09/12/20 Urinary Catheter Time of Insertion: 16:34 Date Urinary Catheter Removed: 09/20/20 Time Urinary Catheter Discontinued: 11:02 Data : 09/22/20 08:15 09/22/20 03:30 Micro: Microbiology 09/20/20 10:50 Urine Culture - Final Urine Catheterized 09/20/20 12:04 Blood Culture - Preliminary Blood NEGATIVE TO DATE 09/20/20 12:04 Blood Culture - Preliminary Blood NEGATIVE TO DATE A&P Assessment and plan (1) Closed fracture of left hip: Status: Acute (2) UTI (urinary tract infection): Status: Acute (3) Metabolic encephalopathy: Status: Acute (4) Anemia: Status: Acute (5) Alcohol abuse: Status: Acute (6) Benign essential hypertension with target blood pressure below 140/90: Status: Acute (7) Premature ventricular contractions: Status: Acute (8) Somnolence, daytime: Status: Acute (9) Abnormal nuclear stress test: Status: Acute (10) Mixed hyperlipidemia: Status: Acute (11) New onset a-fib: Status: Acute (12) Wernicke encephalopathy syndrome: Status: Acute (13) Korsakoff syndrome: Status: Acute (14) Systolic heart failure: Status: Acute Additional A&P Information Left hip intertrochanteric fracture. Status post ORIF by Dr. Glaser. Waiting for placement to acute rehab facility. Continue PT OT. Continue pain management. Atrial fibrillation; -As per review of cardiology notes patient has been complaining of palpitations on and off, had a Holter ordered back in September of last year which was unremarkable -Did have frequent PVCs -Does have a documented history of atrial fibrillation, but unclear where this came from -Developed A. fib with RVR overnight, heart rates in the 160s -Treated with Cardizem, and amiodarone -Currently in A. fib heart rates 100s to 110s Plan: -Currently on amiodarone 400 twice daily, metoprolol, p.o. Cardizem -Heart rates are a bit difficult to control, presumably related to sinus node dysfunction related to alcohol consumption -Continue heparin drip for now, hemoglobin 8.7, monitor hemoglobin closely -Echocardiogram shows an EF of 40% Systolic heart failure, EF of 40% -Patient did have a positive stress in 2019 -1. Small sized reversible perfusion defect of apical lateral wall and fixed defect in apical inferior wall. This may represent small area of old myocardial infarction in left anterior descending artery territory with small eliecer-infarct ischemia. 2. Overall left ventricular systolic function is normal without regional wall motion abnormalities. 3. The left ventricular ejection fraction is normal with a value of 54% -Patient saw Dr. 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 -Currently alert oriented x2, follows commands, answers questions for the most part appropriately, does seem to confabulate, nystagmus seen, overall mentation significantly better -Patient was unresponsive Sunday night with horizontal gaze, no significant evidence of a stroke, has no focal neurologic deficits, symptoms more generalized, CT no acute hemorrhage or stroke -It is unclear if patient had a seizure episode Sunday, will hold off on antiseizure medication -Initially his encephalopathy was thought to be related to UTI and alcohol withdrawal -Zosyn discontinued as no evidence of UTI on urine culture, renal ultrasound negative for obstructive uropathy -Likely patient's current symptomatology related to Wernicke's encephalopathy Korsakoff syndrome -Continue 100 mg IV 3 times daily -Continue B12, folic acid -Neurochecks, aspiration precautions -First set of blood cultures negative, repeat blood cultures -Repeat urine cultures -Serum sodium is 146, unlikely to be etiology, stop fluids -We will move patient out of ICU, neurochecks, aspiration precautions, seizure precautions Right hand and wrist pain, swelling, now seems as if he is not willing to move his right upper extremity as he is in pain. X-rays are negative for fractures. Doppler was negative for DVT. Continue PT OT and pain management Likely related to gouty attack, significantly improved with Solu-Medrol trial -Does have elevated uric acid levels, has a history of gout, has alcoholism -Decrease to prednisone 40 mg daily On 09/20/2020 patient had decreased right upper extremity mobility, with encephalopathy, I did go ahead and perform a stroke evaluation -CT of the head was negative for acute stroke, negative for intracranial bleed -CTA of the head and neck did show high-grade proximal ICA stenosis with a tiny residual lumen, stenosis measures 80 to 85% with reduced caliber ICA, on the right -Thus this would not explain his symptoms on the right upper extremity -He is on aspirin, statin which we continued Right ICA stenosis, high-grade, continue aspirin, statin, will need an outpatient follow-up with Dr. Baugh for surgical intervention at some point Acute blood loss anemia secondary to expected acute blood loss secondary to #1 and possible underlying slow GI bleed. Received iron replacement. Continue monitoring. Stable. Will add Protonix, Carafate Given new onset atrial fibrillation, will go ahead and start patient on heparin drip, monitor hemoglobins closely, Hemoccult stool DT and EtOH withdrawals. Out of window Dehydration and mild hypernatremia. Continue to monitor Hypokalemia. Replace and monitor Hypertension. Well-controlled. Continue current management. DVT prophylaxis SCDs, aspirin 81 mg, heparin The plan of care was discussed with the patient and nursing staff. Attestations Medical Necessity Statement*: Patient requires hospitalization for Warnicke's encephalopathy, new onset A. fib, worsening heart failure, will move out of ICU today, hopefully discharge next 24 to 48 hours, critical care time spent over 45 minutes Coding Level of Care Code Acute [employer] for [employer] [facility] Diagnoses Closed fracture of left hip S72.002A UTI (urinary tract infection) N39.0 Metabolic encephalopathy G93.41 Anemia D64.9 Alcohol abuse F10.10 Benign essential hypertension with target blood pressure below 140/90 I10 Premature ventricular contractions I49.3 Somnolence, daytime R40.0 Abnormal nuclear stress test R94.39 Mixed hyperlipidemia E78.2 New onset a-fib I48.91 Wernicke encephalopathy syndrome E51.2 Korsakoff syndrome F04 Systolic heart failure I50.20
[2020-09-22] MEDS: atorvastatin 40 mg Tablet PO (16:57)
[2020-09-22] MEDS: docusate sodium 100 mg Capsule PO (17:00)
[2020-09-22 17:34] LABS: Partial Thromboplastin Time 57.6 SECONDS (23.9-36.7)
--- NOTE | 2020-09-22 17:35 | P.CONIM_ITS ---
Providers/Reason For Consult Consulting Physican/Specialty*: MICHEL Huang MD/cardiology Reason for Consult*: Patient with atrial fibrillation and rapid ventricular rate Attending Physician: Ramakrishna Glaser MD Primary Care Provider: Mallika Ceja MD History of Present Illness History of Present Illness Ethan Hardy is a 65 year old male with a history of hypertension, dyslipidemia, palpitations and atypical chest pain, was admitted to the hospital on the 13th of this month with a left hip fracture. Apparently he slipped on the ice and fell off from the porch, sustaining femoral neck fracture. He underwent open reduction internal fixation. Postoperatively, the patient started developing some confusion and altered mental status. He had a features of metabolic encephalopathy. He also had some evidence of delirium tremens. He has a history of heavy alcohol abuse. He went into atrial fibrillation with rapid ventricular rate, while being in the hospital. He was started on IV amiodarone initially. For better control of the heart rate, he also was started on Cardizem and beta-mery. Heart rate is still remaining under control. Cardiology consult is requested for further cardiac evaluation recommendations. This patient is a very poor historian. His mental status seems to be improving currently. Still he is not able to give any history. He has a history of palpitations off and on. He had a Holter monitor in the past which revealed occasional PACs and PVCs. No documentation of atrial fibrillation prior to the current event. He has a history of atypical chest pain. He had a myocardial perfusion imaging which revealed areas of fixed defects and a very small area of reversible defect. He had an echocardiogram during this admission which revealed LV ejection fraction around 40%. Because of the atrial fibrillation, segmental wall motion analysis could not be assessed properly. He denies any chest pain at this point. He has not had any fever, chills or cough. Review of Systems Narrative: CONSTITUTIONAL: No fever or chills. EYES: No blurring of vision or other visual disturbances lately. ENT: No hoarseness of voice, auditory disturbances or sore throat. CARDIOVASCULAR: As mentioned above. RESPIRATORY: No significant cough. GASTROINTESTINAL: No hematemesis or melena. GENITOURINARY: No dysuria or hematuria. INTEGUMENTARY: No skin rashes or history of skin cancer. NEURO: Altered mental status/metabolic encephalopathy PSYCHIATRIC: Had Delirium? HEMATOLOGIC: Acute blood loss anemia ENDOCRINE: No history of polyuria or polydipsia. MUSCULOSKELETAL: Recent hip fracture ALLERGY/IMMUNOLOGY: As mentioned above. Meds/Allergies Home Medications and Allergies Home Medications Medication Instructions Recorded Confirmed Last Taken Type ibuprofen 800 mg tablet 800 mg PO Q8H PRN 11/12/19 09/11/20 03/09/20 History tamsulosin 0.4 mg PO QAM PRN 03/09/20 09/11/20 09/11/20 History metoprolol succinate 100 mg PO DAILY@09/11/20 09/11/20 09/11/20 08:00 History nifedipine 60 mg PO DAILY@09/11/20 09/11/20 09/11/20 08:00 History aspirin 325 mg PO DAILY 30 Days tab 09/14/20 Unknown Rx oxycodone 5 mg PO Q3H PRN 7 Days #30 tab 09/14/20 Unknown Rx Allergies Allergy/AdvReac Type Severity Reaction Status Date / Time amlodipine AdvReac Mild Lower Verified 09/11/20 13:54 extremity edema Current Medications Current Medications Generic Name Dose Route Start Last Admin Trade Name Freq PRN Reason Stop Dose Admin Acetaminophen 500 mg 09/18/20 00:47 09/21/20 09:37 Acetaminophen 500 Mg Tablet PO 500 mg Q4H PRN Administration MILD PAIN OR INCREASE TEMP Amiodarone HCl 400 mg 09/21/20 09:00 09/22/20 17:00 Amiodarone 200 Mg Tablet PO 400 mg BID ARNAV Administration Aspirin 81 mg 09/21/20 09:00 09/22/20 08:42 Aspirin 81 Mg Ec Tablet PO 81 mg DAILY ARNAV Administration Atorvastatin Calcium 40 mg 09/20/20 17:00 09/22/20 16:57 Atorvastatin 40 Mg Tablet PO 40 mg Q24H ARNAV Administration Cyanocobalamin 1,000 mcg 09/20/20 17:00 09/22/20 08:42 Cyanocobalamin 1,000 Mcg Tablet PO 1,000 mcg DAILY ARNAV Administration Diltiazem HCl 30 mg 09/21/20 14:45 09/22/20 13:51 Diltiazem 30 Mg Tablet PO 30 mg Q6H ARNAV Administration Docusate Sodium 100 mg 09/22/20 18:00 09/22/20 17:00 Docusate Sodium 100 Mg Capsule PO 100 mg BID ARNAV Administration Folic Acid 1 mg 09/12/20 09:00 09/22/20 08:42 Folic Acid 1 Mg Tablet PO 1 mg DAILY ARNAV Administration Folic Acid 1 mg 09/21/20 09:00 09/22/20 09:31 Folic Acid 1 Mg Tablet PO Not Given DAILY ARNAV Heparin Sodium/Sodium Chloride 25,000 unit in 500 mls @ 0 mls/hr 09/21/20 08:30 09/22/20 05:49 Heparin Drip IV 9.11 unit/kg/hr .Q0M ARNAV 19 mls/hr Administration Protocol Per Protocol Lorazepam 2 mg 09/20/20 22:27 09/21/20 09:34 Lorazepam 2 Mg Tablet PO 2 mg Q4H PRN Administration WITHDRAWAL Protocol Methylprednisolone Sodium Succinate 40 mg 09/21/20 08:30 09/22/20 07:34 Methylprednisolone Sod Succ 40 Mg/Ml Inj IVP 40 mg Q12H ARNAV Administration Metoprolol Succinate 100 mg 09/12/20 07:00 09/22/20 06:01 Metoprolol Succinate Er (24 Hr) 100 Mg Tablet PO 100 mg DAILY@07 ARNAV Administration Multivitamins Therapeutic 1 tab 09/12/20 09:00 09/22/20 08:42 Multivitamin Therapeutic Tablet PO 1 tab DAILY ARNAV Administration Multivitamins Therapeutic 1 tab 09/21/20 09:00 09/22/20 09:31 Multivitamin Therapeutic Tablet PO Not Given DAILY ARNAV Pantoprazole Sodium 40 mg 09/20/20 09:50 09/22/20 17:[address] 40 Mg Tablet PO 40 mg BID ARNAV Administration Sucralfate 1 gm 09/20/20 11:00 09/22/20 16:57 Sucralfate 1 Gm Tablet PO 1 gm AC&BEDTIME ARNAV Administration Thiamine HCl 100 mg 09/21/20 14:00 09/22/20 13:51 Thiamine 100 Mg/Ml Sdv IV 100 mg Q8H ARNAV Administration PFSH Acute PFSH: Medical History Abnormal nuclear stress test Alcohol abuse Benign essential hypertension with target blood pressure below 140/90 BPH loc w urin obs/LUTS Elevated PSA Hypertension Intermittent palpitations Intestinal malrotation Mixed hyperlipidemia Premature ventricular contractions Somnolence, daytime Surgical History History of bariatric surgery Gastric sleeve ([place]) History of left knee surgery History of right hip replacement History of ventral hernia repair x 2, supraumbilical, second time with mesh Family History Denies family history of Anesthesia complication Social History Smoking and tobacco status: never smoked Alcohol intake: current Alcohol intake frequency: 3 or more drinks per day Counseling given: Yes Household members: spouse Housing: House Vitals/I&O/Wt Last Vital Signs Temp 98.4 F 09/22/20 08:00 Pulse 72 09/22/20 16:35 Resp 20 H 09/22/20 16:35 BP 116/79 09/22/20 16:35 Pulse Ox 94 09/22/20 15:45 09/22/20 09/22/20 09/22/20 06:59 14:59 22:59 Intake Total 713.40 / 2958.500 237.217 / 237.217 Output Total 552 Balance 711.40 / 2406.500 237.217 / 237.217 Physical Exam Narrative: EXAM NARRATIVE: GENERAL: The patient is alert but confused. HEENT: Minimal pallor. No icterus or lymphadenopathy. The pupils are reactant to light. Oral cavity: There are no mucous membrane lesions. Funduscopic examination: The disk margins appear to be sharp with no exudates or hemorrhages. NECK: Trachea appears to be central. No masses noted. No JVD or thyromegaly appreciated. No carotid bruit. RESPIRATORY: Chest is symmetrical. No intercostals muscle retraction or any accessory muscle activation. There is no chest wall tenderness. Breath sounds ar e heard bilaterally. No rales or rhonchi heard. No evidence of any consolidation. BREASTS: Deferred. HEART: The first heart sound is variable. Second heart sounds normal. No S3. Short systolic murmur in the left sternal border. No diastolic murmurs. No pericardial rub. ABDOMEN: No vessel pulsations or distention. No tenderness. No organomegaly appreciated. No abdominal bruit. Bowel sounds are normally heard. : Deferred. RECTAL: Deferred. LYMPHATIC: No lymphadenopathy noted in the neck or groin. EXTREMITIES: No edema or cyanosis. Healed skin lesions in the lower extremities. Peripheral pulses are palpable in good volume and amplitude. MUSCULOSKELETAL: No acute joint deformities or swelling SKIN: There are no significant scars or skin rash noted. NEUROPSYCHIATRIC: The patient is alert and confused. No focal motor deficits. Urinary Catheter Management^: Haq: Cath Placed During This Visit: yes, but has since been removed by the nurse Reason for Continuing Indwelling Catheter: Decision to DC Catheter Urinary Catheter Date of Insertion: 09/12/20 Urinary Catheter Time of Insertion: 16:34 Date Urinary Catheter Removed: 09/20/20 Time Urinary Catheter Discontinued: 11:02 Data Micro: Micro: Microbiology 09/20/20 10:50 Urine Culture - Fi nal Urine Catheterize d 09/20/20 12:04 Blood Culture - Pr eliminary Blood NEGATIVE TO SAWYER E 09/20/20 12:04 Blood Culture - Pr eliminary Blood NEGATIVE TO SAWYER E Imaging^: Echo: My impression: Echo was done on 09/21/2020. The report is as follows Radiologist's impression: 1-Mildly increased left ventricular cavity size. Moderately decreased left ventricular systolic function. Left ventricular ejection fraction is estimated at 40 %. In the presence of atrial fibrillation diastolic function cannot be assessed accurately. 2-There is no pericardial effusion. 3-Pulmonary artery systolic pressure is within normal limits. 4-No significant valve abnormalities. 6-Right atrial pressure is around 5 mm of mercury. 7-There are no prior echocardiogram studies to compare Myocardial perfusion imaging: My impression: 01/2020 . Small sized reversible perfusion defect of apical lateral wall and fixed defect in apical inferior wall. This may represent small area of old myocardial infarction in left anterior descending artery territory with small eliecer-infarct ischemia. 2. Overall left ventricular systolic function is normal without regional wall motion abnormalities. 3. The left ventricular ejection fraction is normal with a value of 54%. 4. No prior similar studies to compare. EKG^: EKG 1: My Interpretation: EKG showed sinus rhythm with a frequent supraventricular ectopics. Nonspecific T wave changes. A&P Assessment and plan (1) New onset atrial fibrillation: Patient is a ventricular response rate seems to be getting under control. At this point, I may hold off on any medication changes. I may gradually cut back on the medications. Because of his acute blood loss anemia, hold off on any oral anticoagulation. He may be closely monitored on telemetry. Will check on the repeat LFT Status: Acute (2) Abnormal nuclear stress test: Since the area of ischemia is small and also since he has no evidence of any acute medical injury, I may hold off on any further investigations at this point. May go ahead and do a BNP and troponin T the morning. Status: Acute (3) Mixed hyperlipidemia: May continue on the current medication Status: Acute (4) Benign essential hypertension with target blood pressure below 140/90: Currently the patient is normotensive. We will continue on the current medications. Status: Acute (5) Cardiomyopathy: The etiology of the cardiomyopathy is not clear at this time. Because of atrial fibrillation, LV ejection fraction estimation could be misleading. Possibility of alcoholic cardiomyopathy cannot be excluded. We will closely monitor for the development of any heart failure. Status: Acute Qualifiers: Cardiomyopathy type: other Qualified Code(s): I42.8 - Other cardiomyopathies (6) Acute blood loss anemia: This is being closely monitored. Status: Acute (7) Metabolic encephalopathy: The mental status seems to be slowly improving. Status: Acute Additional A&P Information I may slowly cut back on the AV cristina blocking agents. He needs to be closely monitored on telemetry. BMP and troponin T in the morning. After reviewing the above and also based on the patient's the clinical progress, further recommendations will be made. Thank you for the opportunity to eval this patient make these recommendations Coding Level of Care Code Acute Media [employer] Diagnoses New onset atrial fibrillation I48.91 Abnormal nuclear stress test R94.39 Mixed hyperlipidemia E78.2 Benign essential hypertension with target blood pressure below 140/90 I10 Cardiomyopathy I42.8 Cardiomyopathy type: other Acute blood loss anemia D62 Metabolic encephalopathy G93.41
--- NOTE | 2020-09-22 18:04 | PC.NURSE ---
This nurse was giving patient his evenings medications and patient choked on one pill and began coughing. Patient was coughing the entire time and talking to nurse.
[2020-09-22 23:28] LABS: Partial Thromboplastin Time 78.7 SECONDS (23.9-36.7)
[2020-09-23] VITALS (92 sets, daily range): BP systolic 105–133; BP diastolic 65–92; PULSE 59–95; RESP 13–27; TEMP 35.8–36.8; O2SAT 89–100
[2020-09-23] MEDS: dilTIAZem 30 mg Tablet PO ×4 (01:57→21:03)
[2020-09-23 05:09] LABS: Basophils % 0.1 %; Hematocrit 26.5 % (42.0-52.0); Hemoglobin 8.4 g/dL (11.7-16.6); Lymphocytes # 0.6 10^3/uL (0.8-4.8); Lymphocytes % 5.6 %; Mean Corpuscular HGB Conc 31.7 g/dL (30.0-36.0); Mean Corpuscular Hemoglobin 34.4 pg (28.0-34.0); Mean Corpuscular Volume 108.6 fL (80-94); Mean Platelet Volume 13.7 fL (7.4-10.4); Monocytes # 0.2 10^3/uL (0.2-0.9); Monocytes % 1.6 %; Neutrophils # 9.07 10^3/uL (1.8-7.7); Neutrophils % 91.6 %; Nucleated Red Blood Cells % 0 %; Platelet Count 289 10^3/cmm (130-400); Red Blood Count 2.44 10^6/uL (4.1-5.3); Red Cell Distribution Width 14.6 % (12.1-15.1); White Blood Count 9.9 10^3/uL (4.0-10.0)
[2020-09-23 05:22] LABS: Partial Thromboplastin Time 64.2 SECONDS (23.9-36.7)
[2020-09-23 05:28] LABS: Ammonia 10 umol/L (16-60)
[2020-09-23 05:32] LABS: Alanine Aminotransferase 29 U/L (0-41); Albumin Level 2.7 g/dL (3.5-5.2); Alkaline Phosphatase 79 IU/L (40-130); Anion Gap 14.6 (5-19); Aspartate Amino Transferase 28 U/L (0-40); Blood Urea Nitrogen 31 mg/dL (8-23); C Reactive Protein 52.7 mg/L (0.0-4.9); Calcium 8.2 mg/dL (8.5-10.5); Carbon Dioxide 20 mmol/L (22-29); Chloride 110 mmol/L (98-107); Globulin 3.5 g/dL (1.3-4.6); Glucose 124 mg/dL (65-115); Magnesium 2.2 mg/dL (1.7-2.3); Osmolality Calculated 300 mOsm/kg (285-295); Phosphorus 3.2 mg/dL (2.5-4.5); Potassium 3.6 mmol/L (3.5-5.1); Sodium 141 mmol/L (136-145); Total Bilirubin 0.4 mg/dL (0.15-1.2); Total Protein 6.2 g/dL (6.6-8.7)
[2020-09-23 05:46] LABS: NT Pro B Type Natriuretic Pept 2708 pg/mL (0-125); Procalcitonin 0.38 ng/mL (0-0.5)
[2020-09-23 05:57] LABS: Creatine Phosphokinase 20 U/L (39-308)
--- NOTE | 2020-09-23 06:00 | ECG_ITS ---
[facility] Test Date: 2020-09-23 Pat Name: Ethan Hardy Department: Room: [facility] Gender: Male [employer] Supervisor: : [id number] Requested By: Navneet Huang Order Number: [id number] Reading MD: Navneet Huang M.D. Measurements Intervals [place] Rate: 70 P: 43 WA: 155 QRS: 28 QRSD: 96 T: 89 QT: 410 QTc: 442 Interpretive Statements SINUS RHYTHM WITH OCCASIONAL SUPRAVENTRICULAR PREMATURE COMPLEXES NONSPECIFIC T-WAVE ABNORMALITY Compared to ECG 09/11/2020 18:13:38 No significant changes Electronically Signed On 09-23-2020 20:11:59 SUBSTATION OPERATOR APPRENTICE by Navneet Huang M.D. [id number]
[2020-09-23] MEDS: metoprolol succinate ER (24 HR) 100 mg Tablet PO (06:01)
[2020-09-23] MEDS: sucralfate 1 gm Tablet PO ×4 (06:01→21:03)
[2020-09-23 06:07] LABS: Troponin T (5th) Once 21 ng/L (0-15)
[2020-09-23 06:23] LABS: Slide Review Slide Review Perform
[2020-09-23 06:25] LABS: INR 1.38 (0.8-1.2)
[2020-09-23] MEDS: FUROsemide 10 mg/mL SDV 4mL 40 MG IVP (08:31)
[2020-09-23] MEDS: potassium chloride ER 20 mEq Tablet 40 MEQ PO (08:32)
[2020-09-23] MEDS: folic acid 1 mg Tablet PO (08:32)
[2020-09-23] MEDS: amiodarone 200 mg Tablet 400 MG PO ×2 (08:33→17:22)
[2020-09-23] MEDS: pantoprazole DR 40 mg Tablet PO ×2 (08:33→17:22)
[2020-09-23] MEDS: polyethylene glycol 3350 Pkt 17 gm PO (08:33)
[2020-09-23] MEDS: multivitamin therapeutic Tablet 1 TAB PO (08:33)
[2020-09-23] MEDS: cyanocobalamin 1,000 mcg Tablet 1000 MCG PO (08:33)
[2020-09-23] MEDS: aspirin 81 mg EC Tablet PO (08:35)
--- NOTE | 2020-09-23 10:51 | P.PN_ITS ---
Subjective Subjective: Interval history: Again this morning patient is much more alert, awake, alert to person, follows commands, does make up stories at times, but for the most part has significantly improved, remains afebrile, no seizure-like episodes, no bloody or black stools, the mobility of his right hand has significantly improved, pain is very minimal Medications: Reviewed: Yes Medication Review Details: Generic Name Dose Route Start Last Admin Trade Name Freq PRN Reason Stop Dose Admin Acetaminophen 500 mg 09/18/20 00:47 09/18/20 18:07 Acetaminophen 50 0 Mg Tablet PO 500 mg Q4H PRN Administration MILD PAIN OR INCR EASE TEMP Aspirin 325 mg 09/14/20 09:00 09/19/20 09:08 Aspirin 325 Mg E c Tablet PO 325 mg DAILY ARNAV Administration Chlordiazepoxide 20 mg 09/15/20 13:45 09/17/20 04:50 Chlordiazepoxide 10 Mg Capsule PO Not Given Q8H ARNAV Famotidine 20 mg 09/14/20 18:00 09/19/20 06:13 Famotidine 20 Mg Tablet PO 20 mg Q12H ARNAV Administration Folic Acid 1 mg 09/12/20 09:00 09/19/20 09:08 Folic Acid 1 Mg Tablet PO 1 mg DAILY ARNAV Administration Piperacillin Sod/T azobactam 50 mls @ 12.5 mls /hr 09/17/20 09:00 09/19/20 10:58 Sod 3.375 gm/ So dium Chloride IV Infused Q8H ARNAV Infusion Protocol Metoprolol Succina te 100 mg 09/12/20 07:00 09/19/20 06:13 Metoprolol Succi ana laura Er (24 Hr) 10 0 Mg Tablet PO 100 mg DAILY@07 ARNAV Administration Multivitamins Ther apeutic 1 tab 09/12/20 09:00 09/19/20 09:08 Multivitamin The rapeutic Tablet PO 1 tab DAILY ARNAV Administration Thiamine Mononitra te 100 mg 09/12/20 09:00 09/19/20 09:08 Thiamine 100 Mg Tablet PO 100 mg DAILY ARNAV Administration Vitals/I&O/Wt Last Vital Signs Temp 98.3 F 09/23/20 08:00 Pulse 70 09/23/20 10:00 Resp 16 09/23/20 10:00 BP 127/83 09/23/20 10:00 Pulse Ox 100 09/23/20 10:00 09/22/20 09/23/20 09/23/20 22:59 06:59 14:59 Intake Total 650 / 887.217 438.2 / 1325.417 161.7 / 161.7 Output Total 200 / 200 150 / 350 Balance 450 / 687.217 288.2 / 975.417 161.7 / 161.7 Physical Exam Const: COMMON NORMALS: no acute distress ORIENTATION/CONSCIOUSNESS: Yes oriented to person and Yes oriented to place; not oriented to time HENMT: COMMON NORMALS: normocephalic HEAD & SCALP: normocephalic Neck/C-Spine: COMMON NORMALS: no JVD Resp: COMMON NORMALS: normal respiratory effort, No retractions, No use of accessory muscles and clear to auscultation bilaterally AUSCULTATION: clear to auscultation bilaterally Cardio: COMMON NORMALS: no JVD, regular rate, regular rhythm, S1 normal heart sound present and S2 normal heart sound present RATE: regular rate RHYTHM: regular rhythm HEART SOUNDS: S1 normal heart sound present and S2 normal heart sound present GI: COMMON NORMALS: Normal to inspection, nondistended, normoactive bowel sounds present, Soft to palpation, non-tender, No hepatosplenomegaly present, no masses and no bruits PALPATION: Yes Soft to palpation and Yes No hepatosplenomegaly present Extremity: COMMON NORMALS: capillary refill normal, no clubbing, cyanosis or edema, no calf tenderness and no pedal edema NARRATIVE EXTREMITY EXAM: Right hand mobility significantly improved, ambulating without significant pain or symptomatology, no significant pain in the wrist or hand joints Neuro: COMMON NORMALS: CN's II-XII intact bilaterally, moves all extremities and no focal motor deficits SENSORIUM/ORIENTATION: Yes alert, Yes oriented to person, Yes oriented to place and No oriented to time CRANIAL NERVES: Yes CN normal except as noted SPEECH: speech normal Urinary Catheter Management^: Haq: Cath Placed During This Visit: yes, but has since been removed by the nurse Reason for Continuing Indwelling Catheter: Decision to DC Catheter Urinary Catheter Date of Insertion: 09/12/20 Urinary Catheter Time of Insertion: 16:34 Date Urinary Catheter Removed: 09/20/20 Time Urinary Catheter Discontinued: 11:02 Data : 09/23/20 04:46 09/23/20 04:46 Micro: Microbiology 09/20/20 10:50 Urine Culture - Final Urine Catheterized A&P Assessment and plan (1) Closed fracture of left hip: Status: Acute (2) UTI (urinary tract infection): Status: Acute (3) Metabolic encephalopathy: Status: Acute (4) Anemia: Status: Acute (5) Alcohol abuse: Status: Acute (6) Benign essential hypertension with target blood pressure below 140/90: Status: Acute (7) Premature ventricular contractions: Status: Acute (8) Somnolence, daytime: Status: Acute (9) Abnormal nuclear stress test: Status: Acute (10) Mixed hyperlipidemia: Status: Acute (11) New onset a-fib: Status: Acute (12) Wernicke encephalopathy syndrome: Status: Acute (13) Korsakoff syndrome: Status: Acute (14) Systolic heart failure: Status: Acute Additional A&P Information Left hip intertrochanteric fracture. Status post ORIF by Dr. Glaser. Waiting for placement to acute rehab facility. Continue PT OT. Continue pain management. Atrial fibrillation; -As per review of cardiology notes patient has been complaining of palpitations on and off, had a Holter ordered back in September of last year which was unremarkable -Did have frequent PVCs -Does have a documented history of atrial fibrillation, but unclear where this came from -Developed A. fib with RVR overnight, heart rates in the 160s -Treated with Cardizem, and amiodarone -Currently in A. fib heart rates 100s to 110s Plan: -Currently on amiodarone 400 twice daily, metoprolol, p.o. Cardizem -Might need to discontinue cut back on amiodarone given history of alcohol abuse, however LFTs are within normal limits, INR 1.38, liver ultrasound does not show cirrhosis but does show mild hepatomegaly with diffuse infiltration -Some component possibly related to alcohol consumption -hemoglobin down to 8.4, according to sister he has history of multiple falls, does have concerns for anemia and slow GI bleed as below, has had 4 significant falls in the last year, fall leading to left hip fracture, likely chronic anticoagulation currently does not seem like a reasonable option -I discussed the risk and benefits with the patient about anticoagulation, he voiced understanding, all questions answered, agreed to discontinue anticoagulation, continue aspirin for now. Will let my cardiac colleagues also weigh in -Echocardiogram shows an EF of 40% Systolic heart failure, EF of 40% -Patient did have a positive stress in 2019 -1. Small sized reversible perfusion defect of apical lateral wall and fixed defect in apical inferior wall. This may represent small area of old myocardial infarction in left anterior descending artery territory with small eliecer-infarct ischemia. 2. Overall left ventricular systolic function is normal without regional wall motion abnormalities. 3. The left ventricular ejection fraction is normal with a value of 54% -Patient saw Dr. 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 -Currently alert oriented x2, follows commands, answers questions for the most part appropriately, does seem to confabulate, nystagmus minimal, overall menta tion significantly better -Patient was unresponsive Sunday night with horizontal gaze, no significant evidence of a stroke, has no focal neurologic deficits, symptoms more generalized, CT no acute hemorrhage or stroke -It is unclear if patient had a seizure episode Sunday, will hold off on antiseizure medication -Initially his encephalopathy was thought to be related to UTI and alcohol withdrawal -Zosyn discontinued as no evidence of UTI on urine culture, renal ultrasound negative for obstructive uropathy -Likely patient's current symptomatology related to Wernicke's encephalopathy Korsakoff syndrome -Continue 100 mg IV 3 times daily -Continue B12, folic acid -Neurochecks, aspiration precautions -First set of blood cultures negative, repeat blood cultures -Repeat urine cultures all negative so far -We will move patient out of ICU, neurochecks, aspiration precautions, seizure precautions Right hand and wrist pain, swelling, now seems as if he is not willing to move his right upper extremity as he is in pain. X-rays are negative for fractures. Doppler was negative for DVT. Continue PT OT and pain management Likely related to gouty attack, significantly improved with Solu-Medrol trial -Does have elevated uric acid levels, has a history of gout, has alcoholism -Doing significantly better today, increase mobility, minimal pain with range of motion -Decrease to prednisone 40 mg daily On 09/20/2020 patient had decreased right upper extremity mobility, with encephalopathy, I did go ahead and perform a stroke evaluation -CT of the head was negative for acute stroke, negative for intracranial bleed -CTA of the head and neck did show high-grade proximal ICA stenosis with a tiny residual lumen, stenosis measures 80 to 85% with reduced caliber ICA, on the right -Thus this would not explain his symptoms on the right upper extremity -He is on aspirin, statin which we continued Right ICA stenosis, high-grade, continue aspirin, statin, will need an outpatient follow-up with Dr. Baugh for surgical intervention at some point Acute blood loss anemia secondary to expected acute blood loss secondary to #1 and possible underlying slow GI bleed. Received iron replacement. Continue monitoring. Stable. On Protonix, Carafate Given new onset atrial fibrillation, will continue aspirin, stop heparin as above Alcoholism, liver ultrasound shows mild hepatomegaly with diffuse infiltration, LFTs within normal limits, no significant bili elevation, INR 1.38, albumin 2.7, ammonia 10, platelet count 289, hemoglobin 8.4, MCV 108.6, no significant evidence of liver cirrhosis at this point, but will have to follow-up with GI as outpatient DT and EtOH withdrawals. Out of window Dehydration and mild hypernatremia. Continue to monitor Hypokalemia. Replace and monitor Hypertension. Well-controlled. Continue current management. DVT prophylaxis SCDs, aspirin 81 mg, heparin Patient is awaiting shelter placement The plan of care was discussed with the patient and nursing staff. Attestations Medical Necessity Statement*: Patient requires hospitalization for alcohol wi thdrawal, Adryan's encephalopathy, left hip fracture, new onset A. fib, requiring shelter placement, right carotid artery stenosis Coding Level of Care Code Acute Advertising Production Manager for Chg Fwd Diagnoses Closed fracture of left hip S72.002A UTI (urinary tract infection) N39.0 Metabolic encephalopathy G93.41 Anemia D64.9 Alcohol abuse F10.10 Benign essential hypertension with target blood pressure below 140/90 I10 Premature ventricular contractions I49.3 Somnolence, daytime R40.0 Abnormal nuclear stress test R94.39 Mixed hyperlipidemia E78.2 New onset a-fib I48.91 Wernicke encephalopathy syndrome E51.2 Korsakoff syndrome F04 Systolic heart failure I50.20
[2020-09-23 11:14] LABS: Lipase 39 U/L (13-60)
[2020-09-23 12:05] LABS: Partial Thromboplastin Time 34.7 SECONDS (23.9-36.7)
--- NOTE | 2020-09-23 12:37 | PC.NURSE ---
Received patient's [address] Oliveira. No new orders given at this time. Will continue to monitor.
--- NOTE | 2020-09-23 12:47 | PC.NURSE ---
Report called to Yady on the med-surg floor. Obtained vital signs et placed patient in a wheel chair. Will transfer patient to [facility].
--- NOTE | 2020-09-23 13:30 | PC.NURSE ---
Arrived on Floor I got report from Cleo HERR. Arrived in wheelchair and pt wanting to sit in wheelchair for now.
[2020-09-23] MEDS: atorvastatin 40 mg Tablet PO (17:21)
[2020-09-23] MEDS: docusate sodium 100 mg Capsule PO (17:22)
--- NOTE | 2020-09-23 18:13 | US_ITS ---
WS: [id number] ULTRASOUND ABDOMEN CLINICAL INFORMATION: liver cirrhosis COMPARISON: None. FINDINGS: Liver Size: Mild hepatomegaly Craniocaudal length: 16.8 cm. Echogenicity: Coarse Surface nodularity: None. Mass (size and location): None. Bile ducts Intrahepatic ducts: Normal. Common bile duct diameter: 0.3 cm. Gallbladder Normal. Gallstones: None. Gallbladder sludge: None. Gallbladder wall thickening: None. Pericholecystic fluid: None. Sonographic Dailey sign: Absent. Pancreas Echogenic pancreatic parenchyma. Right kidney: Small right superior pole renal cyst. Hydronephrosis: None. Size: 10.0 cm x 3.5 cm x 4.8 cm Abdominal aorta and IVC Visualized portions are normal. Ascites: None. US/US liver 72711 IMPRESSION: 1. Mild hepatomegaly with diffuse fatty infiltration. 2. Normal gallbladder. 3. Echogenic pancreas can be seen with pancreatitis or pancreatic fatty infilt ration. Recommend correlation for function studies. This can be further evaluat ed with CT. 4. Simple right superior pole renal cyst measuring 1.4 x 1.3 cm
--- NOTE | 2020-09-23 18:35 | P.PN_ITS ---
Subjective Subjective: Interval history: Patient seems to be little more alert today. Denies any chest pain or palpitations. Telemetry shows atrial fibrillation with a controlled ventricular response rate. No fever or chills. Vital signs seems to be stable. Medications: Reviewed: Yes Medication Review Details: Current Medications Acetaminophen (Acetaminophen 500 Mg Tablet) 500 mg PO Q4H PRN PRN Reason: MILD PAIN OR INCREASE TEMP Last Admin: 09/21/20 09:37 Dose: 500 mg Documented by: Amiodarone HCl (Amiodarone 200 Mg Tablet) 400 mg PO BID [facility] Last Admin: 09/23/20 17:22 Dose: 400 mg Documented by: Aspirin (Aspirin 81 Mg Ec Tablet) 81 mg PO DAILY [facility] Last Admin: 09/23/20 08:35 Dose: 81 mg Documented by: Atorvastatin Calcium (Atorvastatin 40 Mg Tablet) 40 mg PO Q24H [facility] Last Admin: 09/23/20 17:21 Dose: 40 mg Documented by: Cyanocobalamin (Cyanocobalamin 1,000 Mcg Tablet) 1,000 mcg PO DAILY [facility] Last Admin: 09/23/20 08:33 Dose: 1,000 mcg Documented by: Diltiazem HCl (Diltiazem 30 Mg Tablet) 30 mg PO Q6H [facility] Last Admin: 09/23/20 14:08 Dose: 30 mg Documented by: Docusate Sodium (Docusate Sodium 100 Mg Capsule) 100 mg PO BID [facility] Last Admin: 09/23/20 17:22 Dose: 100 mg Documented by: Folic Acid (Folic Acid 1 Mg Tablet) 1 mg PO DAILY [facility] Last Admin: 09/23/20 08:32 Dose: 1 mg Documented by: Folic Acid (Folic Acid 1 Mg Tablet) 1 mg PO DAILY [facility] Last Admin: 09/23/20 08:35 Dose: Not Given Documented by: Metoprolol Succinate (Metoprolol Succinate Er (24 Hr) 100 Mg Tablet) 100 mg PO DAILY@07 [facility] Last Admin: 09/23/20 06:01 Dose: 100 mg Documented by: Multivitamins Therapeutic (Multivitamin Therapeutic Tablet) 1 tab PO DAILY [facility] Last Admin: 09/23/20 08:33 Dose: 1 tab Documented by: Multivitamins Therapeutic (Multivitamin Therapeutic Tablet) 1 tab PO DAILY [facility] Last Admin: 09/23/20 08:35 Dose: Not Given Documented by: Pantoprazole Sodium (Pantoprazole Dr 40 Mg Tablet) 40 mg PO BID [facility] Last Admin: 09/23/20 17:22 Dose: 40 mg Documented by: Polyethylene Glycol (Polyethylene Glycol 3350 Pkt 17 Gm) 17 gm PO DAILY [facility] Last Admin: 09/23/20 08:33 Dose: 17 gm Documented by: Prednisone (Prednisone 20 Mg Tablet) 40 mg PO DAILY [facility] Sucralfate (Sucralfate 1 Gm Tablet) 1 gm PO AC&BEDTIME [facility] Last Admin: 09/23/20 17:21 Dose: 1 gm Documented by: Tamsulosin HCl (Tamsulosin 0.4 Mg Capsule) 0.4 mg PO QAM PRN PRN Reason: unknown Thiamine HCl (Thiamine 100 Mg/Ml Sdv) 100 mg IV Q8H [facility] Last Admin: 09/23/20 13:14 Dose: 100 mg Documented by: Vitals/I&O/Wt Last Vital Signs Temp 97.4 F L 09/23/20 14:51 Pulse 76 09/23/20 14:51 Resp 18 09/23/20 14:51 BP 124/82 09/23/20 14:51 Pulse Ox 98 09/23/20 14:51 09/23/20 09/23/20 09/23/20 06:59 14:59 22:59 Intake Total 438.2 / 1325.417 361.7 / 361.7 240 / 601.7 Output Total 150 / 350 0 / 0 Balance 288.2 / 975.417 361.7 / 361.7 240 / 601.7 Physical Exam Narrative: EXAM NARRATIVE: GENERAL: The patient is alert but confused. HEENT: Minimal pallor. No icterus or lymphadenopathy. Oral cavity: There are no mucous membrane lesions. Funduscopic examination: The disk margins appear to be sharp with no exudates or hemorrhages. NECK: Trachea appears to be central. No masses noted. No JVD or thyromegaly appreciated. No carotid bruit. RESPIRATORY: Chest is symmetrical. No intercostals muscle retraction or any accessory muscle activation. There is no chest wall tenderness. Breath sounds are heard bilaterally. No rales or rhonchi heard. No evidence of any consolidation. BREASTS: Deferred. HEART: The first heart sound is variable. Second heart sounds normal. No S3. Short systolic murmur in the left sternal border. No diastolic murmurs. No pericardial rub. ABDOMEN: No vessel pulsations or distention. No tenderness. No organomegaly appreciated. No abdominal bruit. Bowel sounds are normally heard. : Deferred. RECTAL: Deferred. LYMPHATIC: No lymphadenopathy noted in the neck or groin. EXTREMITIES: No edema or cyanosis. Healed skin lesions in the lower extremities. Peripheral pulses are palpable in good volume and amplitude. MUSCULOSKELETAL: No acute joint deformities or swelling SKIN: There are no significant scars or skin rash noted. NEUROPSYCHIATRIC: The patient is alert and confused. No focal motor deficits. Urinary Catheter Management^: Haq: Cath Placed During This Visit: yes, but has since been removed by the nurse Reason for Continuing Indwelling Catheter: Decision to DC Catheter Urinary Catheter Date of Insertion: 09/12/20 Urinary Catheter Time of Insertion: 16:34 Date Urinary Catheter Removed: 09/20/20 Time Urinary Catheter Discontinued: 11:02 Data : 09/23/20 04:46 09/23/20 04:46 Other Labs: Laboratory Last Values WBC 9.9 10^3/uL (4.0-10.0) 09/23/20 04:46 RBC 2.44 10^6/uL (4.1-5.3) L 09/23/20 04:46 Hgb 8.4 g/dL (11.7-16.6) L 09/23/20 04:46 Hct 26.5 % (42.0-52.0) L 09/23/20 04:46 MCV 108.6 fL (80-94) H 09/23/20 04:46 MCH 34.4 pg (28.0-34.0) H 09/23/20 04:46 MCHC 31.7 g/dL (30.0-36.0) 09/23/20 04:46 RDW 14.6 % (12.1-15.1) 09/23/20 04:46 Plt Count 289 10^3/cmm (130-400) 09/23/20 04:46 MPV 13.7 fL (7.4-10.4) H 09/23/20 04:46 Neut % (Auto) 91.6 % 09/23/20 04:46 Lymph % (Auto) 5.6 % 09/23/20 04:46 [place] % (Auto) 1.6 % 09/23/20 04:46 Eos % (Auto) 0.0 % 09/23/20 04:46 Baso % (Auto) 0.1 % 09/23/20 04:46 Neut # (Auto) 9.07 10^3/uL (1.8-7.7) H 09/23/20 04:46 Lymph # (Auto) 0.6 10^3/uL (0.8-4.8) L 09/23/20 04:46 [place] # (Auto) 0.2 10^3/uL (0.2-0.9) 09/23/20 04:46 Eos # (Auto) 0.0 10^3/uL (0.0-0.8) 09/23/20 04:46 Baso # (Auto) 0.0 10^3/uL (0.0-0.1) 09/23/20 04:46 Nucleated RBC % (auto) 0 % 09/23/20 04:46 Nucleated RBCs # 0.0 /100WBC 09/23/20 04:46 PT 17.40 SECONDS (12.1-14.9) H 09/23/20 04:46 INR 1.38 (0.8-1.2) H 09/23/20 04:46 APTT 34.7 SECONDS (23.9-36.7) 09/23/20 11:30 Specimen Type Arterial 09/20/20 21: Sample Site Brachial,right 09/20/20 21:27 ABG pH 7.49 (7.35-7.45) H 09/20/20 21: ABG pCO2 28.6 mmHg (35-45) L 09/20/20 21: ABG pO2 96.9 mmHg (80.0-100.0) 09/20/20 21: ABG HCO3 21.6 mmol/L (22-26) L 09/20/20 21: ABG Base Excess -1.2 mmol/L (-2.0-2.0) 09/20/20 21: Nikko Test n/a 09/20/20 21: Hematocrit 28.7 % (42-52) L 09/20/20 21: O2 Delivery Device Nrb 09/20/20 21: O2 Liters/Min 15.0 % 09/20/20 21: Specimen Drawn By Ania 09/20/20 21:27 Cop Winder ID Jh 09/20/20 21:27 Sodium 141 mmol/L (136-145) 09/23/20 04:46 Potassium 3.6 mmol/L (3.5-5.1) 09/23/20 04:46 Chloride 110 mmol/L (98-107) H 09/23/20 04:46 Carbon Dioxide 20 mmol/L (22-29) L 09/23/20 04:46 Anion Gap 14.6 (5-19) 09/23/20 04:46 BUN 31 mg/dL (8-23) H 09/23/20 04:46 Creatinine 1.1 mg/dL (0.7-1.2) 09/23/20 04:46 GFR Calculation 67.0 mL/min (90-130) L 09/23/20 04:46 Glucose 124 mg/dL (65-115) H 09/23/20 04:46 POC Glucose 117 mg/dL (70-110) H 09/20/20 21:19 Estimat Average Glucose 82 09/12/20 05:18 Hemoglobin A1c 4.5 % (4.0-6.0) 09/12/20 05:18 Calculated Osmolality 300 mOsm/kg (285-295) H 09/23/20 04:46 Uric Acid 8.6 mg/dL (3.4-7.0) H 09/21/20 04:23 Calcium 8.2 mg/dL (8.5-10.5) L 09/23/20 04:46 Phosphorus 3.2 mg/dL (2.5-4.5) 09/23/20 04:46 Magnesium 2.2 mg/dL (1.7-2.3) 09/23/20 04:46 Iron 30 ug/dL (59-158) L 09/11/20 16:37 TIBC 183 mcg/dl 09/11/20 16:37 % Saturation 16.3 % (20-50) L 09/11/20 16:37 Unsat Iron Binding 153 ug/dL (112-347) 09/11/20 16:37 Total Bilirubin 0.4 mg/dL (0.15-1.2) 09/23/20 04:46 AST 28 U/L (0-40) 09/23/20 04:46 ALT 29 U/L (0-41) 09/23/20 04:46 Alkaline Phosphatase 79 IU/L (40-130) 09/23/20 04:46 Ammonia 10 umol/L (16-60) L 09/23/20 04:46 Creatine Kinase 20 U/L (39-308) L 09/23/20 04:46 Troponin T Gen 5 ng/L 21 ng/L (0-15) H 09/23/20 04:46 C-Reactive Protein 52.7 mg/L (0.0-4.9) H 09/23/20 04:46 NT-Pro-B Natriuret Pep 2708 pg/mL (0-125) H 09/23/20 04:46 Total Protein 6.2 g/dL (6.6-8.7) L 09/23/20 04:46 Albumin 2.7 g/dL (3.5-5.2) L 09/23/20 04:46 Globulin 3.5 g/dL (1.3-4.6) 09/23/20 04:46 Triglycerides 77 mg/dL (0-150) 09/12/20 05:18 Cholesterol 129 mg/dL (0-200) 09/12/20 05:18 LDL Cholesterol Direct 57 mg/dL (0-100) 09/20/20 21:27 LDL Cholesterol, Calc 54 mg/dL (50-129) 09/12/20 05:18 Total VLDL Cholesterol 15 mg/dL (0-30) 09/12/20 05:18 HDL Cholesterol 60 mg/dL (60-100) 09/12/20 05:18 Cholesterol/HDL Ratio 2.15 mg/dL (1.0-5.00) 09/12/20 05:18 Lipase 39 U/L (13-60) 09/23/20 04:46 Vitamin B12 409 pg/mL (232-1245) 09/15/20 03:10 Folate 15.2 ng/mL (4.5-32.2) 09/15/20 03:10 Procalcitonin 0.38 ng/mL (0-0.5) 09/23/20 04:46 TSH 1.30 uIU/mL (0.27-4.20) 09/11/20 16:37 Urine Color Yellow (Yellow) 09/20/20 10:50 Urine Appearance Sl hazy (CLEAR) 09/20/20 10:50 Urine pH 5 (5-7) 09/20/20 10:50 Ur Specific [place] 1.015 (1.005-1.030) 09/20/20 10:50 Urine Protein Neg (Negative) 09/20/20 10:50 Urine Glucose (UA) Norm (Normal) 09/20/20 10:50 Urine Ketones 1+ (Negative) H 09/20/20 10:50 Urine Blood 2+ (Negative) H 09/20/20 10:50 Urine Nitrate Negative (Negative) 09/20/20 10:50 Urine Bilirubin 1+ (Negative) H 09/20/20 10:50 Urine Urobilinogen 4 mg/dL (Negative) H 09/20/20 10:50 Ur Leukocyte Esterase 1+ (Negative) H 09/20/20 10:50 Urine RBC 5-10 /hpf (0-2) H 09/20/20 10:50 Urine WBC 10-15 /hpf (0-5) H 09/20/20 10:50 Ur Eosinophil Smear 0 (0-0) 09/20/20 10:50 Ur Squamous Epith Cells 0-4 /hpf (0-5) H 09/20/20 10:50 Amorphous Sediment Not Reportable 09/20/20 10:50 Urine Bacteria 2+ /hpf (NONE) H 09/20/20 10:50 Hyaline Casts 0-4 /lpf H 09/16/20 10:25 Urine Mucus 1+ /hpf 09/20/20 10:50 Urine Eosinophils No eosinophils seen 09/20/20 10:50 Ur Random Sodium 148 mmol/L 09/20/20 10:50 Ur Random Potassium 43 mmol/L 09/20/20 10:50 Ur Random Chloride 122 mmol/L 09/20/20 10:50 Ur Random Urea Nitrogn 1042 mg/dL 09/20/20 10:50 Urine Creatinine 155 mg/dL (39-259) 09/20/20 10:50 Urine Opiates Screen Negative ng/mL (Negative) 09/20/20 10:50 Ur Barbiturates Screen Negative ng/mL (Negative) 09/20/20 10:50 Ur Phencyclidine Scrn Negative ng/mL (Negative) 09/20/20 10:50 Ur Amphetamines Screen Negative ng/mL (Negative) 09/20/20 10:50 U Benzodiazepines Scrn Positive ng/mL (Negative) H 09/20/20 10:50 Urine Cocaine Screen Negative ng/mL (Negative) 09/20/20 10:50 U Marijuana (THC) Screen Negative ng/mL (Negative) 09/20/20 10:50 Nasal/Oral COVID-19 PCR Not detected 09/11/20 14:46 Micro: Microbiology 09/14/20 15:10 Urine Culture - Final Urine Catheterized Enterococcus faecalis A&P Assessment and plan (1) New onset atrial fibrillation: Patient is currently with a controlled ventricular response rate. As of his metabolic encephalopathy and history of heavy alcohol abuse, I may hold off on the amiodarone. He may continue with the metoprolol and the diltiazem. Consider starting on antiplatelet drug Status: Acute (2) Abnormal nuclear stress test: Since the area of ischemia is small and also since he has no evidence of any acute medical injury, I may hold off on any further investigations at this point. May go ahead and do a BNP and troponin T the morning. Status: Acute (3) Mixed hyperlipidemia: May continue on the current medication Status: Acute (4) Benign essential hypertension with target blood pressure below 140/90: Currently the patient is normotensive. We will continue on the current medications. Status: Acute (5) Cardiomyopathy: The etiology of the cardiomyopathy is not clear at this time. Because of atrial fibrillation, LV ejection fraction estimation could be misleading. Possibility of alcoholic cardiomyopathy cannot be excluded. We will closely monitor for the development of any heart failure. Status: Acute Qualifiers: Cardiomyopathy type: other Qualified Code(s): I42.8 - Other cardiomyopathies (6) Acute blood loss anemia: This is being closely monitored. Status: Acute (7) Metabolic encephalopathy: The mental status seems to be slowly improving. Status: Acute Additional A&P Information Discontinue the amiodarone. May continue the metoprolol and the Cardizem. Based on the clinical progress, further management decisions will be made. Attestations Medical Necessity Statement*: Patient requires continued hospital stay for close monitoring and further management Coding Level of Care Code Acute [facility] for [facility] Fwd Diagnoses New onset atrial fibrillation I48.91 Abnormal nuclear stress test R94.39 Mixed hyperlipidemia E78.2 Benign essential hypertension with target blood pressure below 140/90 I10 Cardiomyopathy I42.8 Cardiomyopathy type: other Acute blood loss anemia D62 Metabolic encephalopathy G93.41
[2020-09-24] VITALS (10 sets, daily range): BP systolic 128–136; BP diastolic 81–87; PULSE 45–175; RESP 18–20; TEMP 36.3–37.1; O2SAT 96–99
[2020-09-24 03:00] LABS: Basophils % 0.2 %; Hemoglobin 8.9 g/dL (11.7-16.6); Lymphocytes # 1.1 10^3/uL (0.8-4.8); Lymphocytes % 6.8 %; Mean Corpuscular HGB Conc 30.7 g/dL (30.0-36.0); Mean Corpuscular Hemoglobin 34.5 pg (28.0-34.0); Mean Corpuscular Volume 112.4 fL (80-94); Mean Platelet Volume 13.8 fL (7.4-10.4); Monocytes # 0.9 10^3/uL (0.2-0.9); Monocytes % 5.6 %; Neutrophils # 13.52 10^3/uL (1.8-7.7); Neutrophils % 84.8 %; Nucleated Red Blood Cells # 0.1 /100WBC; Nucleated Red Blood Cells % 0.4 %; Platelet Count 396 10^3/cmm (130-400); Red Blood Count 2.58 10^6/uL (4.1-5.3); Red Cell Distribution Width 14.7 % (12.1-15.1)
[2020-09-24 03:08] LABS: INR 1.56 (0.8-1.2)
[2020-09-24 03:13] LABS: Ammonia 21 umol/L (16-60)
[2020-09-24 03:26] LABS: Alanine Aminotransferase 42 U/L (0-41); Albumin Level 3.2 g/dL (3.5-5.2); Alkaline Phosphatase 81 IU/L (40-130); Aspartate Amino Transferase 50 U/L (0-40); Blood Urea Nitrogen 38 mg/dL (8-23); Carbon Dioxide 19 mmol/L (22-29); Chloride 109 mmol/L (98-107); Globulin 3.6 g/dL (1.3-4.6); Glomerular Filtration Rate 60.6 mL/min (90-130); Glucose 111 mg/dL (65-115); Magnesium 2.2 mg/dL (1.7-2.3); Osmolality Calculated 300 mOsm/kg (285-295); Phosphorus 2.6 mg/dL (2.5-4.5); Sodium 140 mmol/L (136-145); Total Bilirubin 0.5 mg/dL (0.15-1.2); Total Protein 6.8 g/dL (6.6-8.7)
[2020-09-24 03:43] LABS: Creatine Phosphokinase 38 U/L (39-308)
[2020-09-24 03:55] LABS: Slide Review Slide Review Perform
[2020-09-24] MEDS: sucralfate 1 gm Tablet PO ×4 (06:12→21:01)
[2020-09-24] MEDS: dilTIAZem 30 mg Tablet PO (08:25)
[2020-09-24] MEDS: folic acid 1 mg Tablet PO (08:25)
[2020-09-24] MEDS: predniSONE 20 mg Tablet 40 MG PO (08:26)
[2020-09-24] MEDS: docusate sodium 100 mg Capsule PO ×2 (08:26→17:15)
[2020-09-24] MEDS: multivitamin therapeutic Tablet 1 TAB PO (08:26)
[2020-09-24] MEDS: amiodarone 200 mg Tablet 400 MG PO (08:26)
[2020-09-24] MEDS: pantoprazole DR 40 mg Tablet PO ×2 (08:26→17:16)
[2020-09-24] MEDS: polyethylene glycol 3350 Pkt 17 gm PO (08:27)
[2020-09-24] MEDS: aspirin 81 mg EC Tablet PO (08:30)
[2020-09-24] MEDS: cyanocobalamin 1,000 mcg Tablet 1000 MCG PO (08:30)
--- NOTE | 2020-09-24 10:07 | PM.PN ---
Subjective Subjective: Interval history: Patient seems to feeling better. He still has intermittent confusion. Also has difficulty in ambulation. No fever or chills. No cough. The telemetry shows atrial fibrillation with a controlled ventricular response rate. Medications: Reviewed: Yes Medication Review Details: Current Medications Acetaminophen (Acetaminophen 500 Mg Tablet) 500 mg PO Q4H PRN PRN Reason: MILD PAIN OR INCREASE TEMP Last Admin: 09/21/20 09:37 Dose: 500 mg Documented by: Aspirin (Aspirin 81 Mg Ec Tablet) 81 mg PO DAILY [facility] Last Admin: 09/24/20 08:30 Dose: 81 mg Documented by: Atorvastatin Calcium (Atorvastatin 40 Mg Tablet) 40 mg PO Q24H [facility] Last Admin: 09/23/20 17:21 Dose: 40 mg Documented by: Cyanocobalamin (Cyanocobalamin 1,000 Mcg Tablet) 1,000 mcg PO DAILY [facility] Last Admin: 09/24/20 08:30 Dose: 1,000 mcg Documented by: Diltiazem HCl (Diltiazem 30 Mg Tablet) 30 mg PO Q6H [facility] Last Admin: 09/24/20 08:25 Dose: 30 mg Documented by: Docusate Sodium (Docusate Sodium 100 Mg Capsule) 100 mg PO BID [facility] Last Admin: 09/24/20 08:26 Dose: 100 mg Documented by: Folic Acid (Folic Acid 1 Mg Tablet) 1 mg PO DAILY [facility] Last Admin: 09/24/20 08:25 Dose: 1 mg Documented by: Folic Acid (Folic Acid 1 Mg Tablet) 1 mg PO DAILY [facility] Last Admin: 09/24/20 08:28 Dose: Not Given Documented by: Metoprolol Succinate (Metoprolol Succinate Er (24 Hr) 100 Mg Tablet) 100 mg PO DAILY@07 [facility] Last Admin: 09/24/20 06:13 Dose: Not Given Documented by: Multivitamins Therapeutic (Multivitamin Therapeutic Tablet) 1 tab PO DAILY [facility] Last Admin: 09/24/20 08:26 Dose: 1 tab Documented by: Multivitamins Therapeutic (Multivitamin Therapeutic Tablet) 1 tab PO DAILY [facility] Last Admin: 09/24/20 08:29 Dose: Not Given Documented by: Pantoprazole Sodium (Pantoprazole Dr 40 Mg Tablet) 40 mg PO BID [facility] Last Admin: 09/24/20 08:26 Dose: 40 mg Documented by: Polyethylene Glycol (Polyethylene Glycol 3350 Pkt 17 Gm) 17 gm PO DAILY [facility] Last Admin: 09/24/20 08:27 Dose: 17 gm Documented by: Prednisone (Prednisone 20 Mg Tablet) 40 mg PO DAILY [facility] Last Admin: 09/24/20 08:26 Dose: 40 mg Documented by: Sucralfate (Sucralfate 1 Gm Tablet) 1 gm PO AC&BEDTIME [facility] Last Admin: 09/24/20 06:12 Dose: 1 gm Documented by: Tamsulosin HCl (Tamsulosin 0.4 Mg Capsule) 0.4 mg PO QAM PRN PRN Reason: unknown Thiamine HCl (Thiamine 100 Mg/Ml Sdv) 100 mg IV Q8H [facility] Last Admin: 09/24/20 06:12 Dose: 100 mg Documented by: Vitals/I&O/Wt Last Vital Signs Temp 97.5 F L 09/24/20 08:00 Pulse 66 09/24/20 08:00 Resp 18 09/24/20 08:00 BP 128/87 09/24/20 08:00 Pulse Ox 98 09/24/20 07:51 09/23/20 09/24/20 09/24/20 22:59 06:59 14:59 Intake Total 240.1 / 601.8 100 / 701.8 480 / 480 Output Total 100 / 100 140 / 240 Balance 140.1 / 501.8 -40 / 461.8 480 / 480 Physical Exam Narrative: EXAM NARRATIVE: GENERAL: The patient is alert with intermittent confusion. HEENT: Minimal pallor. No icterus or lymphadenopathy. Oral cavity: There are no mucous membrane lesions. Funduscopic examination: The disk margins appear to be sharp with no exudates or hemorrhages. NECK: Trachea appears to be central. No masses noted. No JVD or thyromegaly appreciated. Carotid bruit on the right side RESPIRATORY: Chest is symmetrical. No intercostals muscle retraction or any accessory muscle activation. There is no chest wall tenderness. Breath sounds are heard bilaterally. No rales or rhonchi heard. No evidence of any consolidation. BREASTS: Deferred. HEART: The first heart sound is variable. Second heart sounds normal. No S3. Short systolic murmur in the left sternal border. No diastolic murmurs. No pericardial rub. ABDOMEN: No vessel pulsations or distention. No tenderness. No organomegaly appreciated. No abdominal bruit. Bowel sounds are normally heard. : Deferred. RECTAL: Deferred. LYMPHATIC: No lymphadenopathy noted in the neck or groin. EXTREMITIES: Trace edema bilaterally with no cyanosis. Peripheral pulses are felt in good volume and amplitude. MUSCULOSKELETAL: No acute joint deformities or swelling SKIN: There are no significant scars or skin rash noted. NEUROPSYCHIATRIC: The patient is alert with intermittent confusion no focal motor deficits. Urinary Catheter Management^: Haq: Cath Placed During This Visit: yes, but has since been removed by the nurse Reason for Continuing Indwelling Catheter: Decision to DC Catheter Urinary Catheter Date of Insertion: 09/12/20 Urinary Catheter Time of Insertion: 16:34 Date Urinary Catheter Removed: 09/20/20 Time Urinary Catheter Discontinued: 11:02 Data : 09/24/20 02:09 09/24/20 02:09 Other Labs: Laboratory Last Values WBC 16.0 10^3/uL (4.0-10.0) H 09/24/20 02:09 RBC 2.58 10^6/uL (4.1-5.3) L 09/24/20 02:09 Hgb 8.9 g/dL (11.7-16.6) L 09/24/20 02:09 Hct 29.0 % (42.0-52.0) L 09/24/20 02:09 MCV 112.4 fL (80-94) H 09/24/20 02:09 MCH 34.5 pg (28.0-34.0) H 09/24/20 02:09 MCHC 30.7 g/dL (30.0-36.0) 09/24/20 02:09 RDW 14.7 % (12.1-15.1) 09/24/20 02:09 Plt Count 396 10^3/cmm (130-400) 09/24/20 02:09 MPV 13.8 fL (7.4-10.4) H 09/24/20 02:09 Neut % (Auto) 84.8 % 09/24/20 02:09 Lymph % (Auto) 6.8 % 09/24/20 02:09 [place] % (Auto) 5.6 % 09/24/20 02:09 Eos % (Auto) 0.0 % 09/24/20 02:09 Baso % (Auto) 0.2 % 09/24/20 02:09 Neut # (Auto) 13.52 10^3/uL (1.8-7.7) H 09/24/20 02:09 Lymph # (Auto) 1.1 10^3/uL (0.8-4.8) 09/24/20 02:09 [place] # (Auto) 0.9 10^3/uL (0.2-0.9) 09/24/20 02:09 Eos # (Auto) 0.0 10^3/uL (0.0-0.8) 09/24/20 02:09 Baso # (Auto) 0.0 10^3/uL (0.0-0.1) 09/24/20 02:09 Nucleated RBC % (auto) 0.4 % 09/24/20 02:09 Nucleated RBCs # 0.1 /100WBC 09/24/20 02:09 PT 19.30 SECONDS (12.1-14.9) H 09/24/20 02:09 INR 1.56 (0.8-1.2) H 09/24/20 02:09 APTT 34.7 SECONDS (23.9-36.7) 09/23/20 11:30 Specimen Type Arterial 09/20/20 21: Sample Site Brachial,right 09/20/20 21:27 ABG pH 7.49 (7.35-7.45) H 09/20/20 21: ABG pCO2 28.6 mmHg (35-45) L 09/20/20 21: ABG pO2 96.9 mmHg (80.0-100.0) 09/20/20 21: ABG HCO3 21.6 mmol/L (22-26) L 09/20/20 21: ABG Base Excess -1.2 mmol/L (-2.0-2.0) 09/20/20 21: Nikko Test n/a 09/20/20: Hematocrit 28.7 % (42-52) L 09/20/20: O2 Delivery Device Nrb 09/20/20 21: O2 Liters/Min 15.0 % 09/20/20: Specimen Drawn By Ania 09/20/20 21: Director Of Recruitment And Admissions ID Jh 09/20/20 21: Sodium 140 mmol/L (136-145) 09/24/20 02:09 Potassium 4.0 mmol/L (3.5-5.1) 09/24/20 02:09 Chloride 109 mmol/L (98-107) H 09/24/20 02:09 Carbon Dioxide 19 mmol/L (22-29) L 09/24/20 02:09 Anion Gap 16.0 (5-19) 09/24/20 02:09 BUN 38 mg/dL (8-23) H 09/24/20 02:09 Creatinine 1.2 mg/dL (0.7-1.2) 09/24/20 02:09 GFR Calculation 60.6 mL/min (90-130) L 09/24/20 02:09 Glucose 111 mg/dL (65-115) 09/24/20 02:09 POC Glucose 117 mg/dL (70-110) H 09/20/20 21:19 Estimat Average Glucose 82 09/12/20 05:18 Hemoglobin A1c 4.5 % (4.0-6.0) 09/12/20 05:18 Calculated Osmolality 300 mOsm/kg (285-295) H 09/24/20 02:09 Uric Acid 8.6 mg/dL (3.4-7.0) H 09/21/20 04:23 Calcium 9.0 mg/dL (8.5-10.5) 09/24/20 02:09 Phosphorus 2.6 mg/dL (2.5-4.5) 09/24/20 02:09 Magnesium 2.2 mg/dL (1.7-2.3) 09/24/20 02:09 Iron 30 ug/dL (59-158) L 09/11/20 16:37 TIBC 183 mcg/dl 09/11/20 16:37 % Saturation 16.3 % (20-50) L 09/11/20 16:37 Unsat Iron Binding 153 ug/dL (112-347) 09/11/20 16:37 Total Bilirubin 0.5 mg/dL (0.15-1.2) 09/24/20 02:09 AST 50 U/L (0-40) H 09/24/20 02:09 ALT 42 U/L (0-41) H 09/24/20 02:09 Alkaline Phosphatase 81 IU/L (40-130) 09/24/20 02:09 Ammonia 21 umol/L (16-60) 09/24/20 02:09 Creatine Kinase 38 U/L (39-308) L 09/24/20 02:09 Troponin T Gen 5 ng/L 21 ng/L (0-15) H 09/23/20 04:46 C-Reactive Protein 52.7 mg/L (0.0-4.9) H 09/23/20 04:46 NT-Pro-B Natriuret Pep 2708 pg/mL (0-125) H 09/23/20 04:46 Total Protein 6.8 g/dL (6.6-8.7) 09/24/20 02:09 Albumin 3.2 g/dL (3.5-5.2) L 09/24/20 02:09 Globulin 3.6 g/dL (1.3-4.6) 09/24/20 02:09 Triglycerides 77 mg/dL (0-150) 09/12/20 05:18 Cholesterol 129 mg/dL (0-200) 09/12/20 05:18 LDL Cholesterol Direct 57 mg/dL (0-100) 09/20/20 21:27 LDL Cholesterol, Calc 54 mg/dL (50-129) 09/12/20 05:18 Total VLDL Cholesterol 15 mg/dL (0-30) 09/12/20 05:18 HDL Cholesterol 60 mg/dL (60-100) 09/12/20 05:18 Cholesterol/HDL Ratio 2.15 mg/dL (1.0-5.00) 09/12/20 05:18 Lipase 39 U/L (13-60) 09/23/20 04:46 Vitamin B12 409 pg/mL (232-1245) 09/15/20 03:10 Folate 15.2 ng/mL (4.5-32.2) 09/15/20 03:10 Procalcitonin 0.38 ng/mL (0-0.5) 09/23/20 04:46 TSH 1.30 uIU/mL (0.27-4.20) 09/11/20 16:37 Urine Color Yellow (Yellow) 09/20/20 10:50 Urine Appearance Sl hazy (CLEAR) 09/20/20 10:50 Urine pH 5 (5-7) 09/20/20 10:50 Ur Specific [place] 1.015 (1.005-1.030) 09/20/20 10:50 Urine Protein Neg (Negative) 09/20/20 10:50 Urine Glucose (UA) Norm (Normal) 09/20/20 10:50 Urine Ketones 1+ (Negative) H 09/20/20 10:50 Urine Blood 2+ (Negative) H 09/20/20 10:50 Urine Nitrate Negative (Negative) 09/20/20 10:50 Urine Bilirubin 1+ (Negative) H 09/20/20 10:50 Urine Urobilinogen 4 mg/dL (Negative) H 09/20/20 10:50 Ur Leukocyte Esterase 1+ (Negative) H 09/20/20 10:50 Urine RBC 5-10 /hpf (0-2) H 09/20/20 10:50 Urine WBC 10-15 /hpf (0-5) H 09/20/20 10:50 Ur Eosinophil Smear 0 (0-0) 09/20/20 10:50 Ur Squamous Epith Cells 0-4 /hpf (0-5) H 09/20/20 10:50 Amorphous Sediment Not Reportable 09/20/20 10:50 Urine Bacteria 2+ /hpf (NONE) H 09/20/20 10:50 Hyaline Casts 0-4 /lpf H 09/16/20 10:25 Urine Mucus 1+ /hpf 09/20/20 10:50 Urine Eosinophils No eosinophils seen 09/20/20 10:50 Ur Random Sodium 148 mmol/L 09/20/20 10:50 Ur Random Potassium 43 mmol/L 09/20/20 10:50 Ur Random Chloride 122 mmol/L 09/20/20 10:50 Ur Random Urea Nitrogn 1042 mg/dL 09/20/20 10:50 Urine Creatinine 155 mg/dL (39-259) 09/20/20 10:50 Urine Opiates Screen Negative ng/mL (Negative) 09/20/20 10:50 Ur Barbiturates Screen Negative ng/mL (Negative) 09/20/20 10:50 Ur Phencyclidine Scrn Negative ng/mL (Negative) 09/20/20 10:50 Ur Amphetamines Screen Negative ng/mL (Negative) 09/20/20 10:50 U Benzodiazepines Scrn Positive ng/mL (Negative) H 09/20/20 10:50 Urine Cocaine Screen Negative ng/mL (Negative) 09/20/20 10:50 U Marijuana (THC) Screen Negative ng/mL (Negative) 09/20/20 10:50 Nasal/Oral COVID-19 PCR Not detected 09/11/20 14:46 Micro: Microbiology 09/14/20 15:10 Urine Culture - Final Urine Catheterized Enterococcus faecalis A&P Assessment and plan (1) New onset atrial fibrillation: Patient is currently with a controlled ventricular response rate. As of his metabolic encephalopathy and history of heavy alcohol abuse, I may hold off on the amiodarone. He may continue with the metoprolol and the diltiazem. The diltiazem may be changed to a long-acting form. It was decided to start him on a baby aspirin, enteric-coated. Discussed with Dr. Oliveira. Patient requires GI work-up for the anemia. May consider oral anticoagulation at a later time. Currently his liver enzymes are elevated Status: Acute (2) Abnormal nuclear stress test: Since the area of ischemia is small and also since he has no evidence of any acute medical injury, I may hold off on any further investigations at this point. May go ahead and do a BNP and troponin T the morning. Status: Acute (3) Mixed hyperlipidemia: May continue on the current medication Status: Acute (4) Benign essential hypertension with target blood pressure below 140/90: Currently the patient is normotensive. We will continue on the current medications. Status: Acute (5) Cardiomyopathy: The etiology of the cardiomyopathy is not clear at this time. In view of the elevated BNP, I may start him on a low-dose of Lasix, 20 mg p.o. daily and potassium 8 mEq p.o. daily. Continue the other medications as the days Status: Acute Qualifiers: Cardiomyopathy type: other Qualified Code(s): I42.8 - Other cardiomyopathies (6) Acute blood loss anemia: Patient request GI [id number] planned to have it done as an outpatient. Status: Acute (7) Metabolic encephalopathy: The mental status has significantly improved. Status: Acute (8) Carotid artery stenosis without cerebral infarction: Management as per Dr. [id number] appointment as outpatient. Status: Acute (9) Anemia: Status: Acute Additional A&P Information Please make an appointment to be seen with all office by the nurse practitioner next week. Appointment with me in the office in 3 weeks. In addition to the current medication, may add Lasix 20 mg daily with potassium 8 mg p.o. daily Attestations Medical Necessity Statement*: Disposition as per the primary Coding Level of Care Code Acute Family Independence Case Manager for g Fwd Diagnoses New onset atrial fibrillation I48.91 Abnormal nuclear stress test R94.39 Mixed hyperlipidemia E78.2 Benign essential hypertension with target blood pressure below 140/90 I10 Cardiomyopathy I42.8 Cardiomyopathy type: other Acute blood loss anemia D62 Metabolic encephalopathy G93.41 Systolic heart failure I50.20 Carotid artery stenosis without cerebral infarction I65.29 Anemia D64.9
--- NOTE | 2020-09-24 10:26 | PM.DCS ---
Discharge Providers Date of Admission: 09/11/20 15:52 Date of Discharge: September 24, 2020 Attending Provider at Admission: Ramakrishna Glaser MD Attending Provider at Discharge: Oniel Oliveira MD Primary Care Provider: Mallika Ceja MD Diagnoses at Discharge Discharge Diagnosis (1) New onset atrial fibrillation: Status: Acute (2) Abnormal nuclear stress test: Status: Acute (3) Mixed hyperlipidemia: Status: Acute (4) Benign essential hypertension with target blood pressure below 140/90: Status: Acute (5) Cardiomyopathy: Status: Acute Qualifiers: Cardiomyopathy type: other Qualified Code(s): I42.8 - Other cardiomyopathies (6) Acute blood loss anemia: Status: Acute (7) Metabolic encephalopathy: Status: Acute Reason for Visit Reason for Visit: fall Hospital Course Hospital Course Mr. Hardy is a 65-year-old male who fell with resulting left nondisplaced basicervical femoral neck fracture. He was admitted to the hospital on 07/11/2021. He underwent open reduction and internal fixation of the left hip on 07/13/2021. He remained hemodynamically stable throughout his hospitalization. He had no notable decrease in his hemoglobin from the fracture or surgery. He made slow progress with physical therapy due to right lower extremity pain. After discussion it was agreed that residential placement will be best to allow him more time for therapy before he is discharged home. He was managed with aspirin and sequential compression dressings for DVT prophylaxis. This is a 65-year-old male with a past medical history of alcoholism, hypertension, history of palpitations, who presents to [facility] for a fall resulting in a left nondisplaced femoral neck fracture status post surgical intervention by Dr. Glaser, discharge to [facility] for physical therapy. Patient had a complicated hospital course as below: -Patient developed significant postoperative confusion, delirium initially secondary to alcohol withdrawal and urinary tract infection. Manage on the general medical floors with CIWA protocol, antibiotics, and clinical monitoring. However 96 hours after his last alcohol drink, he continues have episodes of significant confusion, likely secondary to Warnicke's encephalopathy and Korsakoff syndrome. He was moved to the ICU as he had a episode of nonresponsiveness in the hospital, requiring rapid response, initially thought to be related to a seizure-like episode, but thought to be unlikely related to seizures. And it is not exactly clear what happened, no evidence of a stroke on CT or on clinical findings, patient was back to baseline status when he was moved down to the ICU, neurology was involved in the care as there was concern for stroke. Likely patient's symptomatology was related to Wernicke's encephalopathy Korsakoff syndrome, he received high-dose thiamine, his mentation significantly improved, such that he is on discharge he is alert and oriented x3, follows all commands, he does have episodes of confabulation. Patient was discharged to [facility] as above. Acute encephalopathy: Likely Warnicke's encephalopathy and Korsakoff syndrome -Currently alert oriented x3, follows commands, answers questions for the most part appropriately, does seem to confabulate, nystagmus minimal, overall mentation significantly better -Patient was unresponsive Sunday night with horizontal gaze, no significant evidence of a stroke, has no focal neurologic deficits, symptoms more generalized, CT no acute hemorrhage or stroke -It is unclear if patient had a seizure episode Sunday, will hold off on antiseizure medication, will follow up with Dr. Hayes as outpatient for consideration of EEG -Initially his encephalopathy was thought to be related to UTI and alcohol withdrawal -Zosyn discontinued as no evidence of UTI on urine culture, renal ultrasound negative for obstructive uropathy -Urine culture positive for Enterococcus, likely contamination, has finished antibiotic therapy as inpatient, blood cultures negative -No more episodes of witnessed seizure as inpatient -Likely patient's current symptomatology related to Wernicke's encephalopathy Korsakoff syndrome -Discharged on thiamine 250 mg 3 times daily -Discharged on B12 and folic acid Patient developed new onset atrial fibrillation during his hospitalization -As per review of cardiology notes patient has been complaining of palpitations on and off, had a Holter ordered back in September of last year which was unremarkable -Did have frequent PVCs -Does have a documented history of atrial fibrillation, but unclear where this came from -Developed A. fib with RVR overnight, heart rates in the 160s -Treated with Cardizem, and amiodarone -However given alcohol consumption, and elevation of LFTs, amiodarone was stopped -Switch to metoprolol 100 mg daily, Cardizem 120 mg once daily -LFTs are slightly elevated on discharge, INR 1.5, liver ultrasound does not show cirrhosis but does show mild hepatomegaly with diffuse infiltration -Some component possibly related to alcohol consumption -hemoglobin down to 8.9, according to sister he has history of multiple falls, does have concerns for anemia and slow GI bleed as below, has had 4 significant falls in the last year, fall leading to left hip fracture, likely chronic anticoagulation currently does not seem like a reasonable option -I discussed the risk and benefits with the patient and sister about anticoagulation, -Currently has high risk of bleeding given his acute anemia, history of falls, evidence of early liver failure, but there is always a risk of stroke given his atrial fibrillation -Currently his risk of bleeding is greater than his risk of stroke, but low risk does not mean no risk there is always a risk of a stroke -However for now we will continue aspirin 81 mg -And as patient has further work-up for his GI bleed, and further follow up with cardiology, we can reassess the need to start anticoagulation in the near future -he and his sister voiced understanding, all questions answered, agreed to discontinue anticoagulation, continue aspirin for now -Cardiology was consulted, Dr. Huang was involved in the care, everything was discussed with Dr. Huang as above, he agrees with plan Systolic heart failure, EF of 40% -Patient did have a positive stress in 2019 -1. Small sized reversible perfusion defect of apical lateral wall and fixed defect in apical inferior wall. This may represent small area of old myocardial infarction in left anterior descending artery territory with small eliecer-infarct ischemia. 2. Overall left ventricular systolic function is normal without regional wall motion abnormalities. 3. The left ventricular ejection fraction is normal with a value of 54% -Patient saw Dr. Huang as outpatient, had atypical chest pain complaints, the plan was to proceed to cardiac cath at some point, however patient did not follow-up -Currently denies any chest pain, no shortness of breath -Possibly patient's systolic heart failure could be related to alcoholic cardiomyopathy -Cardiology was consulted, will follow up with patient in 4 to 7 days Right hand and wrist pain, swelling, now seems as if he is not willing to move his right upper extremity as he is in pain likely secondary to gouty attack. X-rays are negative for fractures. Doppler was negative for DVT. Likely related to gouty attack, right hand function has returned back to baseline with Solu-Medrol trial -Does have elevated uric acid levels, has a history of gout, has alcoholism -Doing significantly better today, increase mobility, minimal pain with range of motion -Decrease to prednisone 40 mg daily for 5 days -Follow-up with primary care in 1 month for institution of allopurinol On 09/20/2020 patient had decreased right upper extremity mobility, with encephalopathy, I did go ahead and perform a stroke evaluation -CT of the head was negative for acute stroke, negative for intracranial bleed -Repeat CT head during rapid response was negative for acute stroke, was evaluated by Dr. Hayes -CTA of the head and neck did show high-grade proximal ICA stenosis with a tiny residual lumen, stenosis measures 80 to 85% with reduced caliber ICA, on the right -He is on aspirin, statin which we continued -Symptomatology likely secondary to Wernicke's encephalopathy unlikely to be related to carotid artery stenosis Right ICA stenosis, high-grade, continue aspirin, statin, will need an outpatient follow-up with Dr. Baugh for surgical intervention at some point Acute blood loss anemia secondary to alcoholism, hand underlying slow GI bleed. Received iron replacement. Continue monitoring as outpatient. Discharged on Protonix and Carafate Discharge on aspirin held as above for atrial fibrillation carotid artery stenosis Will need to follow-up with general surgery as outpatient for consideration of EGD and colonoscopy MCC advised to monitor for bloody or black stools Monitor hemoglobin Alcoholism, liver ultrasound shows mild hepatomegaly with diffuse infiltration, LFTs slightly elevated on discharge, no significant bili elevation, INR 1.5, albumin 2.7, ammonia 10, platelet count 289, hemoglobin 8.4, MCV 108.6, no significant evidence of liver cirrhosis at this point, but does have some liver dysfunction, but will have to follow-up with GI as outpatient Patient has a history of gastric bypass, discharged on folic acid, B12, multivitamin, iron, mcfp instructed to institute small-volume feeds, slowly advance diet DT and EtOH withdrawals. Out of window Physical Exam Const: COMMON NORMALS: no acute distress ORIENTATION/CONSCIOUSNESS: Yes awake, Yes oriented to person, Yes oriented to place and Yes oriented to time HENMT: COMMON NORMALS: normocephalic HEAD & SCALP: normocephalic Neck/C-Spine: COMMON NORMALS: no JVD Resp: COMMON NORMALS: normal respiratory effort, No retractions, No use of accessory muscles and clear to auscultation bilaterally AUSCULTATION: clear to auscultation bilaterally Cardio: COMMON NORMALS: no JVD, regular rate, regular rhythm, S1 normal heart sound present and S2 normal heart sound present RATE: regular rate RHYTHM: regular rhythm HEART SOUNDS: S1 normal heart sound present and S2 normal heart sound present GI: COMMON NORMALS: Normal to inspection, nondistended, normoactive bowel sounds present, Soft to palpation, non-tender, No hepatosplenomegaly present, no masses and no bruits PALPATION: Yes Soft to palpation and Yes No hepatosplenomegaly present Extremity: COMMON NORMALS: capillary refill normal, no clubbing, cyanosis or edema, no calf tenderness and no pedal edema Neuro: SENSORIUM/ORIENTATION: Yes oriented to person, Yes oriented to place and Yes oriented to time Psych: COMMON NORMALS: speech normal APPEARANCE: Yes grossly normal ACTIVITY/MOTOR BEHAVIOR: Yes appropriate eye contact SPEECH: Yes normal speech OTHER: Confabulation Urinary Catheter Management^: Haq: Cath Placed During This Visit: yes, but has since been removed by the nurse Reason for Continuing Indwelling Catheter: Decision to DC Catheter Urinary Catheter Date of Insertion: 09/12/20 Urinary Catheter Time of Insertion: 16:34 Date Urinary Catheter Removed: 09/20/20 Time Urinary Catheter Discontinued: 11:02 Discharge Data Data Completed and Pending: Completed Studies During Hospitalization Category Date Time Status CT angio headneck * 44152/61797 Rout ine Cat Scan 09/20/20 10:[address] head wo con* 7 0450 Stat Cat Scan 09/20/20 10:[address] head wo con* 7 0450 Stat Cat Scan 09/20/20 21:[address] hip LT wo con* 58403 Stat Cat Scan 09/11/20 13:46 Completed XR chest 1V buffy ble 29634 Routine Exams 09/11/20 17:23 Completed XR chest 1V buffy ble 63042 Routine Exams 09/20/20 10:40 Completed XR forearm RT 2V 09443 Routine Exams 09/16/20 13:56 Completed XR hand RT 2V 731 20 Routine Exams 09/16/20 13:56 Completed XR hip LT 2-3V wo /w pel* [id number] Rout ine Exams 09/13/20 Completed XR hip LT 2-3V wo /w pel* [id number] Stat Exams 09/11/20 12:33 Completed XR shoulder RT mi n 2V* [id number] Routin e Exams 09/16/20 13:56 Completed CV echo complete* 95711 Routine Ultrasound 09/21/20 08:25 [place] [address] Routin e Ultrasound 09/17/20 08:36 Completed US liver 54899 Ro utine Ultrasound 09/23/20 18:13 Completed US renal BI* 7677 0 Stat Ultrasound 09/20/20 16:47 Completed Pending at discharge Category Date Time Status Ammonia AM LABS Lab 09/25/20 04:00 Ordered Blood Culture Sta t Lab 09/20/20 12:04 Results Clostridioides Di fficile PCR Stat Lab 09/21/20 08:30 Uncollected Complete Blood Co unt w/Auto AM LABS Lab 09/25/20 04:00 Ordered Complete Blood Co unt w/Auto AM LABS Lab 09/26/20 04:00 Ordered Comprehensive Met abolic Panel AM LA BS Lab 09/25/20 04:00 Ordered Comprehensive Met abolic Panel AM LA BS Lab 09/26/20 04:00 Ordered Creatine Phosphok inase AM LABS Lab 09/25/20 04:00 Ordered Magnesium AM LABS Lab 09/25/20 04:00 Ordered Magnesium AM LABS Lab 09/26/20 04:00 Ordered Phosphorus AM LAB S Lab 09/25/20 04:00 Ordered Phosphorus AM LAB S Lab 09/26/20 04:00 Ordered Platelet Count Q2 D Lab 09/25/20 04:00 Ordered Prothrombin Time INR AM LABS Lab 09/25/20 04:00 Ordered Prothrombin Time INR AM LABS Lab 09/25/20 04:00 Ordered Prothrombin Time INR AM LABS Lab 09/26/20 04:00 Ordered Urine Protein Navya ctrop Random Stat Lab 09/20/20 10:50 Ordered Labs from last 24 hours 09/24/20 09/24/20 09/24/20 02:09 02:09 02:09 WBC 16.0 H RBC 2.58 L Hgb 8.9 L Hct 29.0 L MCV 112.4 H MCH 34.5 H MCHC 30.7 RDW 14.7 Plt Count 396 MPV 13.8 H Neut % (Auto) 84.8 Lymph % (Auto) 6.8 [place] % (Auto) 5.6 Eos % (Auto) 0.0 Baso % (Auto) 0.2 Neut # (Auto) 13.52 H Lymph # (Auto) 1.1 [place] # (Auto) 0.9 Eos # (Auto) 0.0 Baso # (Auto) 0.0 Nucleated RBC % (a uto) 0.4 Nucleated RBCs # 0.1 PT INR APTT Sodium 140 Potassium 4.0 Chloride 109 H Carbon Dioxide 19 L Anion Gap 16.0 BUN 38 H Creatinine 1.2 GFR Calculation 60.6 L Glucose 111 Calculated Osmolal ity 300 H Calcium 9.0 Phosphorus 2.6 Magnesium 2.2 Total Bilirubin 0.5 AST 50 H ALT 42 H Alkaline Phosphata se 81 Ammonia 21 Creatine Kinase Total Protein 6.8 Albumin 3.2 L Globulin 3.6 Lipase 09/24/20 09/24/20 09/23/20 02:09 02:09 11:30 WBC RBC Hgb Hct MCV MCH MCHC RDW Plt Count MPV Neut % (Auto) Lymph % (Auto) [place] % (Auto) Eos % (Auto) Baso % (Auto) Neut # (Auto) Lymph # (Auto) [place] # (Auto) Eos # (Auto) Baso # (Auto) Nucleated RBC % (a uto) Nucleated RBCs # PT 19.30 H INR 1.56 H APTT 34.7 Sodium Potassium Chloride Carbon Dioxide Anion Gap BUN Creatinine GFR Calculation Glucose Calculated Osmolal ity Calcium Phosphorus Magnesium Total Bilirubin AST ALT Alkaline Phosphata se Ammonia Creatine Kinase 38 L Total Protein Albumin Globulin Lipase 09/23/20 04:46 WBC RBC Hgb Hct MCV MCH MCHC RDW Plt Count MPV Neut % (Auto) Lymph % (Auto) [place] % (Auto) Eos % (Auto) Baso % (Auto) Neut # (Auto) Lymph # (Auto) [place] # (Auto) Eos # (Auto) Baso # (Auto) Nucleated RBC % (a uto) Nucleated RBCs # PT INR APTT Sodium Potassium Chloride Carbon Dioxide Anion Gap BUN Creatinine GFR Calculation Glucose Calculated Osmolal ity Calcium Phosphorus Magnesium Total Bilirubin AST ALT Alkaline Phosphata se Ammonia Creatine Kinase Total Protein Albumin Globulin Lipase 39 Vitals: Last Vital Signs Temp 97.5 F L 09/24/20 08:00 Pulse 66 09/24/20 08:00 Resp 18 09/24/20 08:00 BP 128/87 09/24/20 08:00 Pulse Ox 98 09/24/20 07:51 Discharge Plan Discharge Patient Disposition: Xfer SNF Condition: Stable Prescriptions: New oxycodone 5 mg Tablet 5 mg PO Q3H PRN (Reason: Pain) 7 Days Qty: 30 RF: 0 atorvastatin 40 mg Tablet 40 mg PO Q24H 30 Days Qty: 30 RF: 0 polyethylene glycol 3350 17 gram Powder In Packet 17 g PO DAILY PRN (Reason: constipation) 30 Days Qty: 30 RF: 0 sucralfate 1 gram Tablet 1 g PO AC&BEDTIME 30 Days Qty: 60 RF: 0 prednisone 20 mg Tablet 40 mg PO DAILY 5 Days Qty: 10 RF: 0 Vitamin B-12 1,000 mcg Tablet 1,000 mcg PO DAILY 30 Days Qty: 30 RF: 0 aspirin 81 mg Tablet,Delayed Release (Dr/Ec) 81 mg PO DAILY 30 Days Qty: 30 RF: 0 pantoprazole 40 mg Tablet,Delayed Release (Dr/Ec) 40 mg PO BID 30 Days Qty: 60 RF: 0 DOK 100 mg Capsule 100 mg PO BID 30 Days Qty: 60 RF: 0 folic acid 1 mg Tablet 1 mg PO DAILY 30 Days Qty: 30 RF: 0 Thera 400 mcg Tablet 1 tab PO DAILY 30 Days Qty: 30 RF: 0 thiamine HCl (vitamin B1) 250 mg tablet 250 mg PO TID 30 Days Qty: 90 RF: 0 Cardizem CD 120 mg capsule,extended release 24hr 120 mg PO Q24H 30 Days Qty: 30 RF: 0 Continued tamsulosin 0.4 mg Capsule 0.4 mg PO QAM PRN (Reason: unknown) RF: 0 metoprolol succinate 100 mg tablet extended release 24 hr 100 mg PO DAILY@07 RF: 0 Discontinued ibuprofen 800 mg tablet 800 mg PO Q8H PRN (Reason: pain) RF: 0 nifedipine 60 mg tablet extended release 24hr 60 mg PO DAILY@07 RF: 0 Discharge Orders: Discharge Order (Routine); Ordered 09/14/20 Ordered By: Ramakrishna Glaser Other Ambulatory Orders: Complete Blood Count w/Auto (Routine) Timeframe: 1 Week Location: Determined by Patient Ordered By: Oniel Oliveira Comprehensive Metabolic Panel (Routine) Timeframe: 1 Week Facility: [facility] - Location: Lab - Main Lab Ordered By: Oniel Oliveira Referrals: Mallory Hayes MD [Physician] - 2 weeks (wernikies encephalopathy, possible seizure) Mallika Ceja MD [Primary Care Provider] - 09/22/20 10:45 am Pepe Turner MD [Referring] - 2 months (alcoholic liver cirrhosis) Navneet Huang MD [Physician] - 4-7 days (afib) Cody Wheeler MD [Physician] - 1 month (need for egd and colonscopy ) Craig Baugh MD [Physician] - 1 month (carotid artery stenosis) Ramakrishna Glaser MD [Physician] - 10/12/20 9:15 am Discharge Diet: Advance as tolerated Discharge Activity: Limit activity as instructed Patient Instructions: Aspirin (By mouth), Oxycodone, Slow Release (By mouth), Open Reduction and Internal Fixation of a Hip Fracture (DC), Abuse of Alcohol (DC), Alcohol Withdrawal (DC) Activity Restrictions/Additional Instructions: Weight-bear as tolerated left lower extremity Change dressing as needed for drainage Okay to shower or sponge bathe -For his Warnicke's encephalopathy, please continue thiamine, vitamin B12, folate Please abstain from alcohol consumption -Patient has had a history of gastric bypass, slowly introduce meals, small portions -Please avoid NSAIDs -Please have patient follow-up with neurology in the next 1 to 2 weeks -Please have patient follow-up with Dr. Glaser, continue physical therapy -Please have patient follow-up with general surgery for consideration of EGD and colonoscopy in 1 month -Please monitor for bloody or black stool, monitor hemoglobin as outpatient -Please have patient follow-up with Dr. Baugh in 1 to 2 months for carotid artery stenosis -Please have patient follow-up with gastroneurology in [place] in 2 months for alcohol liver damage -Have patient follow-up with cardiology in 1 week Discharge Attestations Time Spent in Discharge Care*: greater than 30 min Status at Discharge: Cognitive status at discharge: cognitively intact, Behavioral status at discharge: cooperative, Quality Metrics Clinical Quality Measures During this hospital stay, did patient experience: None Coding Level of Care Code Acute Sample Steamer for Chg Fwd Diagnoses New onset atrial fibrillation I48.91 Abnormal nuclear stress test R94.39 Mixed hyperlipidemia E78.2 Benign essential hypertension with target blood pressure below 140/90 I10 Cardiomyopathy I42.8 Cardiomyopathy type: other Acute blood loss anemia D62 Metabolic encephalopathy G93.41
[2020-09-24] MEDS: dilTIAZem ER (24HR) 120 mg Capsule PO (11:57)
--- NOTE | 2020-09-24 14:52 | PC.SOCIAL ---
IMM Update Pg. 2 of IMM updated and reviewed with patient. Signed, dated, and timed and copy provided.
[2020-09-24] MEDS: atorvastatin 40 mg Tablet PO (17:15)
--- NOTE | 2020-09-24 17:20 | PM.PN ---
Subjective Subjective: Interval history: patient was ready to be discharged today he is actually sitting up in a chair. ambulated with physical therapy in a walker, still unsteady on his feet he tells me, and is talking to his friend over the friend on his phone, he is alert orient x3 this morning, patient was going to be discharged but his prior auth fell through, and he will have to wait until sunday unfortunately Medications: Reviewed: Yes Medication Review Details: Current Medications Acetaminophen (Acetaminophen 500 Mg Tablet) 500 mg PO Q4H PRN PRN Reason: MILD PAIN OR INCREASE TEMP Last Admin: 09/21/20 09:37 Dose: 500 mg Documented by: Aspirin (Aspirin 81 Mg Ec Tablet) 81 mg PO DAILY [facility] Last Admin: 09/24/20 08:30 Dose: 81 mg Documented by: Atorvastatin Calcium (Atorvastatin 40 Mg Tablet) 40 mg PO Q24H [facility] Last Admin: 09/23/20 17:21 Dose: 40 mg Documented by: Cyanocobalamin (Cyanocobalamin 1,000 Mcg Tablet) 1,000 mcg PO DAILY [facility] Last Admin: 09/24/20 08:30 Dose: 1,000 mcg Documented by: Diltiazem HCl (Diltiazem 30 Mg Tablet) 30 mg PO Q6H [facility] Last Admin: 09/24/20 08:25 Dose: 30 mg Documented by: Docusate Sodium (Docusate Sodium 100 Mg Capsule) 100 mg PO BID [facility] Last Admin: 09/24/20 08:26 Dose: 100 mg Documented by: Folic Acid (Folic Acid 1 Mg Tablet) 1 mg PO DAILY [facility] Last Admin: 09/24/20 08:25 Dose: 1 mg Documented by: Folic Acid (Folic Acid 1 Mg Tablet) 1 mg PO DAILY [facility] Last Admin: 09/24/20 08:28 Dose: Not Given Documented by: Metoprolol Succinate (Metoprolol Succinate Er (24 Hr) 100 Mg Tablet) 100 mg PO DAILY@07 [facility] Last Admin: 09/24/20 06:13 Dose: Not Given Documented by: Multivitamins Therapeutic (Multivitamin Therapeutic Tablet) 1 tab PO DAILY [facility] Last Admin: 09/24/20 08:26 Dose: 1 tab Documented by: Multivitamins Therapeutic (Multivitamin Therapeutic Tablet) 1 tab PO DAILY [facility] Last Admin: 09/24/20 08:29 Dose: Not Given Documented by: Pantoprazole Sodium (Pantoprazole Dr 40 Mg Tablet) 40 mg PO BID [facility] Last Admin: 09/24/20 08:26 Dose: 40 mg Documented by: Polyethylene Glycol (Polyethylene Glycol 3350 Pkt 17 Gm) 17 gm PO DAILY [facility] Last Admin: 09/24/20 08:27 Dose: 17 gm Documented by: Prednisone (Prednisone 20 Mg Tablet) 40 mg PO DAILY [facility] Last Admin: 09/24/20 08:26 Dose: 40 mg Documented by: Sucralfate (Sucralfate 1 Gm Tablet) 1 gm PO AC&BEDTIME [facility] Last Admin: 09/24/20 06:12 Dose: 1 gm Documented by: Tamsulosin HCl (Tamsulosin 0.4 Mg Capsule) 0.4 mg PO QAM PRN PRN Reason: unknown Thiamine HCl (Thiamine 100 Mg/Ml Sdv) 100 mg IV Q8H [facility] Last Admin: 09/24/20 06:12 Dose: 100 mg Documented by: Vitals/I&O/Wt Last Vital Signs Temp 97.7 F 09/24/20 16:00 Pulse 68 09/24/20 16:00 Resp 18 09/24/20 16:00 BP 133/82 09/24/20 16:00 Pulse Ox 96 09/24/20 16:00 09/24/20 09/24/20 09/24/20 06:59 14:59 22:59 Intake Total 100 / 701.8 720 / 720 Output Total 140 / 240 Balance -40 / 461.8 720 / 720 Physical Exam Const: COMMON NORMALS: no acute distress and alert ORIENTATION/CONSCIOUSNESS: Yes awake, Yes oriented to person, Yes oriented to place and Yes oriented to time HENMT: COMMON NORMALS: normocephalic HEAD & SCALP: normocephalic Neck/C-Spine: COMMON NORMALS: no JVD Resp: COMMON NORMALS: normal respiratory effort, No retractions, No use of accessory muscles and clear to auscultation bilaterally AUSCULTATION: clear to auscultation bilaterally Cardio: COMMON NORMALS: no JVD, regular rate, regular rhythm, S1 normal heart sound present and S2 normal heart sound present RATE: regular rate RHYTHM: regular rhythm HEART SOUNDS: S1 normal heart sound present and S2 normal heart sound present GI: COMMON NORMALS: Normal to inspection, nondistended, normoactive bowel sounds present, Soft to palpation, non-tender, No hepatosplenomegaly present, no masses and no bruits PALPATION: Yes Soft to palpation and Yes No hepatosplenomegaly present Extremity: COMMON NORMALS: capillary refill normal, no clubbing, cyanosis or edema, no calf tenderness and no pedal edema NARRATIVE EXTREMITY EXAM: Right hand mobility significantly improved, ambulating without significant pain or symptomatology, no significant pain in the wrist or hand joints OTHER: Right hand swelling and erythema significantly reduced today, can move the right hand and wrist without significant symptomatology, significant pain, Neuro: COMMON NORMALS: CN's II-XII intact bilaterally, moves all extremities, no focal motor deficits and no sensory deficits noted SENSORIUM/ORIENTATION: Yes alert, Yes oriented to person, Yes oriented to place and Yes oriented to time CRANIAL NERVES: Yes CN normal except as noted SPEECH: speech normal MOTOR EXAM: 5/5 motor strength present throughout Psych: COMMON NORMALS: mental status grossly normal and speech normal APPEARANCE: Yes grossly normal ACTIVITY/MOTOR BEHAVIOR: Yes appropriate eye contact SPEECH: Yes normal speech OTHER: Confabulation Urinary Catheter Management^: Haq: Cath Placed During This Visit: yes, but has since been removed by the nurse Reason for Continuing Indwelling Catheter: Decision to DC Catheter Urinary Catheter Date of Insertion: 09/12/20 Urinary Catheter Time of Insertion: 16:34 Date Urinary Catheter Removed: 09/20/20 Time Urinary Catheter Discontinued: 11:02 Data : 09/24/20 02:09 09/24/20 02:09 Micro: Microbiology 09/14/20 15:10 Urine Culture - Final Urine Catheterized Enterococcus faecalis A&P Assessment and plan (1) New onset atrial fibrillation: Status: Acute (2) Abnormal nuclear stress test: Status: Acute (3) Mixed hyperlipidemia: Status: Acute (4) Benign essential hypertension with target blood pressure below 140/90: Status: Acute (5) Cardiomyopathy: Status: Acute Qualifiers: Cardiomyopathy type: other Qualified Code(s): I42.8 - Other cardiomyopathies (6) Acute blood loss anemia: Status: Acute (7) Metabolic encephalopathy: Status: Acute Additional A&P Information Left hip intertrochanteric fracture. Status post ORIF by Dr. Glaser. Waiting for placement to acute rehab facility. Continue PT OT. Continue pain management. Atrial fibrillation; -As per review of cardiology notes patient has been complaining of palpitations on and off, had a Holter ordered back in September of last year which was unremarkable -Did have frequent PVCs -Does have a documented history of atrial fibrillation, but unclear where this came from -Developed A. fib with RVR overnight, heart rates in the 160s -Treated with Cardizem, and amiodarone -Currently in A. fib heart rates 100s to 110s Plan: -Currently on amiodarone 400 twice daily which has been stopped by cardiology due to wosening lft, metoprolol, p.o. Cardizem changed to 120mg qd -Some component possibly related to alcohol consumption -hemoglobin down to 8.9, according to sister he has history of multiple falls, does have concerns for anemia and slow GI bleed as below, has had 4 significant falls in the last year, fall leading to left hip fracture, likely chronic anticoagulation currently does not seem like a reasonable option -I discussed the risk and benefits with the patient and sister about anticoagulation, he voiced understanding, all questions answered, agreed to discontinue anticoagulation, continue aspirin for now. cardiology agrees -Echocardiogram shows an EF of 40% Systolic heart failure, EF of 40% -Patient did have a positive stress in 2019 -1. Small sized reversible perfusion defect of apical lateral wall and fixed defect in apical inferior wall. This may represent small area of old myocardial infarction in left anterior descending artery territory with small eliecer-infarct ischemia. 2. Overall left ventricular systolic function is normal without regional wall motion abnormalities. 3. The left ventricular ejection fraction is normal with a value of 54% -Patient saw Dr. 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 -Currently alert oriented x3, follows commands, answers questions for the most part appropriately, does seem to confabulate, nystagmus minimal, overall mentation significantly better -Patient was unresponsive Sunday night with horizontal gaze, no significant evidence of a stroke, has no focal neurologic deficits, symptoms more generalized, CT no acute hemorrhage or stroke -It is unclear if patient had a seizure episode Sunday, will hold off on antiseizure medication -Initially his encephalopathy was thought to be related to UTI and alcohol withdrawal -Zosyn discontinued as no evidence of UTI on urine culture, renal ultrasound negative for obstructive uropathy -Likely patient's current symptomatology related to Wernicke's encephalopathy Korsakoff syndrome -Continue 250 mg IV 3 times daily -Continue B12, folic acid -Neurochecks, aspiration precautions -First set of blood cultures negative, repeat blood cultures -Repeat urine cultures all negative so far -on general medical floors, neurochecks, aspiration precautions, seizure precautions Right hand and wrist pain, swelling, now seems as if he is not willing to move his right upper extremity as he is in pain. X-rays are negative for fractures. Doppler was negative for DVT. Continue PT OT and pain management Likely related to gouty attack, significantly improved with Solu-Medrol trial -Does have elevated uric acid levels, has a history of gout, has alcoholism -Doing significantly better today, increase mobility, minimal pain with range of motion -Decrease to prednisone 40 mg daily On 09/20/2020 patient had decreased right upper extremity mobility, with encephalopathy, I did go ahead and perform a stroke evaluation -CT of the head was negative for acute stroke, negative for intracranial bleed -CTA of the head and neck did show high-grade proximal ICA stenosis with a tiny residual lumen, stenosis measures 80 to 85% with reduced caliber ICA, on the right -Thus this would not explain his symptoms on the right upper extremity -He is on aspirin, statin which we continued Right ICA stenosis, high-grade, continue aspirin, statin, will need an outpatient follow-up with Dr. Baugh for surgical intervention at some point Acute blood loss anemia secondary to expected acute blood loss secondary to #1 and possible underlying slow GI bleed. Received iron replacement. Continue monitoring. Stable. On Protonix, Carafate Given new onset atrial fibrillation, will continue aspirin, stop heparin as above Alcoholism, liver ultrasound shows mild hepatomegaly with diffuse infiltration, LFTs within normal limits, no significant bili elevation, INR 1.5, albumin 2.7, ammonia 10, platelet count 289, hemoglobin 8.4, MCV 108.6, no significant evidence of liver cirrhosis at this point, but will have to follow-up with GI as outpatient DT and EtOH withdrawals. Out of window Dehydration and mild hypernatremia. Continue to monitor falls, recurrent likely related to peripheral neuropathy and wernickies related to alcohol use Hypokalemia. Replace and monitor Hypertension. Well-controlled. Continue current management. DVT prophylaxis SCDs, aspirin 81 mg, heparin Patient is awaiting long term placement The plan of care was discussed with the patient and nursing staff. 09/24/2020, awaiting second prior auth to go to long term which has already accepted him, likely till sunday, stop amiodaron, change to cardizem cd 120, pt ot Attestations Medical Necessity Statement*: patient requires hospitalization for fall, wernickies enecpahlopathy, awaiting prior to go to long term Coding Level of Care Code Acute Yarn Salvager for Chg Fwd Diagnoses New onset atrial fibrillation I48.91 Abnormal nuclear stress test R94.39 Mixed hyperlipidemia E78.2 Benign essential hypertension with target blood pressure below 140/90 I10 Cardiomyopathy I42.8 Cardiomyopathy type: other Acute blood loss anemia D62 Metabolic encephalopathy G93.41
[2020-09-25] VITALS (10 sets, daily range): BP systolic 129–152; BP diastolic 74–96; PULSE 63–77; RESP 17–120; TEMP 36.3–37; O2SAT 94–100
[2020-09-25] MEDS: sucralfate 1 gm Tablet PO ×4 (06:30→22:24)
[2020-09-25] MEDS: metoprolol succinate ER (24 HR) 100 mg Tablet PO (06:30)
[2020-09-25 07:00] LABS: Ammonia 16 umol/L (16-60)
[2020-09-25 07:02] LABS: INR 1.52 (0.8-1.2)
[2020-09-25 07:18] LABS: Alanine Aminotransferase 70 U/L (0-41); Albumin Level 3.1 g/dL (3.5-5.2); Alkaline Phosphatase 72 IU/L (40-130); Anion Gap 14.3 (5-19); Aspartate Amino Transferase 66 U/L (0-40); Blood Urea Nitrogen 33 mg/dL (8-23); Calcium 8.4 mg/dL (8.5-10.5); Carbon Dioxide 20 mmol/L (22-29); Chloride 112 mmol/L (98-107); Creatine Phosphokinase 51 U/L (39-308); Globulin 2.9 g/dL (1.3-4.6); Glucose 78 mg/dL (65-115); Magnesium 2.1 mg/dL (1.7-2.3); Osmolality Calculated 302 mOsm/kg (285-295); Phosphorus 2.4 mg/dL (2.5-4.5); Potassium 3.3 mmol/L (3.5-5.1); Sodium 143 mmol/L (136-145); Total Bilirubin 0.5 mg/dL (0.15-1.2)
[2020-09-25 07:38] LABS: Hemoglobin 9.3 g/dL (11.7-16.6); Mean Corpuscular HGB Conc 32.1 g/dL (30.0-36.0); Mean Corpuscular Hemoglobin 35.1 pg (28.0-34.0); Mean Corpuscular Volume 109.4 fL (80-94); Mean Platelet Volume 13.7 fL (7.4-10.4); Platelet Count 303 10^3/cmm (130-400); Red Blood Count 2.65 10^6/uL (4.1-5.3); Red Cell Distribution Width 15.1 % (12.1-15.1); White Blood Count 13.7 10^3/uL (4.0-10.0)
[2020-09-25 08:23] LABS: Slide Review Slide Review Perform
[2020-09-25] MEDS: aspirin 81 mg EC Tablet PO (08:25)
[2020-09-25] MEDS: predniSONE 20 mg Tablet 40 MG PO (08:25)
[2020-09-25] MEDS: docusate sodium 100 mg Capsule PO (08:25)
[2020-09-25] MEDS: polyethylene glycol 3350 Pkt 17 gm PO (08:25)
[2020-09-25] MEDS: cyanocobalamin 1,000 mcg Tablet 1000 MCG PO (08:25)
[2020-09-25] MEDS: dilTIAZem ER (24HR) 120 mg Capsule PO (08:26)
[2020-09-25] MEDS: pantoprazole DR 40 mg Tablet PO ×2 (08:26→17:47)
[2020-09-25] MEDS: multivitamin therapeutic Tablet 1 TAB PO (08:26)
[2020-09-25] MEDS: folic acid 1 mg Tablet PO (08:26)
[2020-09-25 08:27] LABS: Absolute Segmented Neutrophil 11.6 10/cmm (1.6-7.1); Band Neutrophils Absolute 0.3 10^3/cmm (0.0-1.2); Corrected White Blood Count 13.2 10^3/cmm (4.8-10.8); Eosinophils 0 %; Lymphocytes 7 %; Monocytes Absolute 0.7 10^3/cmm (0.1-0.6); Segmented Neutrophils 85 %; Total Cells Counted 100 (0-100)
[2020-09-25 08:28] LABS: Anisocytosis 1+; Macrocytosis 1+; Polychromasia Trace
[2020-09-25 08:29] LABS: Absolute Neutrophil 11.9 10^3/cmm (1.4-6.5); Platelet Estimate Normal (Normal); Poikilocytosis Trace
--- NOTE | 2020-09-25 09:26 | PC.CHAP ---
Pastoral Care Encounter/Spiritual Assessment Type of Contact [] Declined digital media designer visit [] Patient/Family/Request visit [] Outpatient visit [] Follow-up visit [] Physician referral [] Code/Alert [X] Routine visit [] Staff referral [] Actively dying [] Patient sleeping [] Family support [] [] Out of room [] Palliative care [] [] Receiving care in room [] Pre-surgical visit [] Trauma [] Long length of stay [] ICU visit [] Other: Relational/Emotional Strength [X] Patient feels connected with others/family/visitors/staff [] Distress [] Loneliness/isolation [] Abandonment Spirituality of Patient [X] Person of Michelle [] Attends Pentecostalism of their Michelle [] Believes in Prayer [] Reads Bible or Latter-Day materials [] There are Spiritual issues to be addressed Pretzel Twister Interventions [] Prayer [X] Active listening [X] Non-anxious presence [X] Spiritual/emotional support [] Crisis/trauma care [] Spiritual counseling [] Bereavement support [] Provided bereavement packet [] Provided Bible/devotional materials [] Provided toy/stuffed animal, coloring book to patient or family member [] Provided Communion [] Anointing/[place] [] Salvation [] Completed spiritual assessment [] Other: Impact on Illness or Injury [] Angry [] Fearful [] Anxious [] Often cries [] Exhaustion [] Unable to work [] Unable to attend denominational [] Unable to walk/stand [] Unable to read [] Unable to drive [] Unable to eat/drink [] Unable to sleep [] Unable to be with family [] Patient intubated [] Other: Summary Pt was in chair. Pretzel Twister entered room to visit with room mate but that Pt was asleep. No prayer offered since visit ended with Pt receiving a phone call Time spent with patient 5 min
[2020-09-25] MEDS: potassium chloride ER 20 mEq Tablet 40 MEQ PO (10:55)
[2020-09-25] MEDS: FUROsemide 20 mg Tablet PO (10:55)
--- NOTE | 2020-09-25 11:11 | P.PN_ITS ---
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 [employer], overall doing better, he is awaiting prior Auth for his long term placement hopefully on Sunday, alert to person, place, to time Medications: Reviewed: Yes Medication Review Details: Current Medications Acetaminophen (Acetaminophen 500 Mg Tablet) 500 mg PO Q4H PRN PRN Reason: MILD PAIN OR INCREASE TEMP Last Admin: 09/21/20 09:37 Dose: 500 mg Documented by: Aspirin (Aspirin 81 Mg Ec Tablet) 81 mg PO DAILY [facility] Last Admin: 09/24/20 08:30 Dose: 81 mg Documented by: Atorvastatin Calcium (Atorvastatin 40 Mg Tablet) 40 mg PO Q24H [facility] Last Admin: 09/23/20 17:21 Dose: 40 mg Documented by: Cyanocobalamin (Cyanocobalamin 1,000 Mcg Tablet) 1,000 mcg PO DAILY [facility] Last Admin: 09/24/20 08:30 Dose: 1,000 mcg Documented by: Diltiazem HCl (Diltiazem 30 Mg Tablet) 30 mg PO Q6H [facility] Last Admin: 09/24/20 08:25 Dose: 30 mg Documented by: Docusate Sodium (Docusate Sodium 100 Mg Capsule) 100 mg PO BID [facility] Last Admin: 09/24/20 08:26 Dose: 100 mg Documented by: Folic Acid (Folic Acid 1 Mg Tablet) 1 mg PO DAILY [facility] Last Admin: 09/24/20 08:25 Dose: 1 mg Documented by: Folic Acid (Folic Acid 1 Mg Tablet) 1 mg PO DAILY [facility] Last Admin: 09/24/20 08:28 Dose: Not Given Documented by: Metoprolol Succinate (Metoprolol Succinate Er (24 Hr) 100 Mg Tablet) 100 mg PO DAILY@07 [facility] Last Admin: 09/24/20 06:13 Dose: Not Given Documented by: Multivitamins Therapeutic (Multivitamin Therapeutic Tablet) 1 tab PO DAILY [facility] Last Admin: 09/24/20 08:26 Dose: 1 tab Documented by: Multivitamins Therapeutic (Multivitamin Therapeutic Tablet) 1 tab PO DAILY [facility] Last Admin: 09/24/20 08:29 Dose: Not Given Documented by: Pantoprazole Sodium (Pantoprazole Dr 40 Mg Tablet) 40 mg PO BID [facility] Last Admin: 09/24/20 08:26 Dose: 40 mg Documented by: Polyethylene Glycol (Polyethylene Glycol 3350 Pkt 17 Gm) 17 gm PO DAILY [facility] Last Admin: 09/24/20 08:27 Dose: 17 gm Documented by: Prednisone (Prednisone 20 Mg Tablet) 40 mg PO DAILY [facility] Last Admin: 09/24/20 08:26 Dose: 40 mg Documented by: Sucralfate (Sucralfate 1 Gm Tablet) 1 gm PO AC&BEDTIME [facility] Last Admin: 09/24/20 06:12 Dose: 1 gm Documented by: Tamsulosin HCl (Tamsulosin 0.4 Mg Capsule) 0.4 mg PO QAM PRN PRN Reason: unknown Thiamine HCl (Thiamine 100 Mg/Ml Sdv) 100 mg IV Q8H [facility] Last Admin: 09/24/20 06:12 Dose: 100 mg Documented by: Vitals/I&O/Wt Last Vital Signs Temp 97.9 F 09/25/20 08:00 Pulse 72 09/25/20 08:00 Resp 18 09/25/20 08:00 BP 133/87 09/25/20 08:00 Pulse Ox 97 09/25/20 08:00 09/24/20 09/25/20 09/25/20 22:59 06:59 14:59 Intake Total 440 / 1160 600 / 1760 240 / 240 Output Total 525 / 525 Balance -85 / 635 600 / 1235 240 / 240 Physical Exam Const: COMMON NORMALS: no acute distress and patient oriented x3 HENMT: COMMON NORMALS: normocephalic HEAD & SCALP: normocephalic Neck/C-Spine: COMMON NORMALS: no JVD Resp: COMMON NORMALS: normal respiratory effort, No retractions, No use of acc essory muscles and clear to auscultation bilaterally AUSCULTATION: clear to auscultation bilaterally Cardio: COMMON NORMALS: no JVD, regular rate, regular rhythm, S1 normal heart sound present and S2 normal heart sound present RATE: regular rate RHYTHM: regular rhythm HEART SOUNDS: S1 normal heart sound present and S2 normal heart sound present GI: COMMON NORMALS: Normal to inspection, nondistended, normoactive bowel sounds present, Soft to palpation, non-tender, No hepatosplenomegaly present, no masses and no bruits PALPATION: Yes Soft to palpation and Yes No hepatosplenomegaly present Extremity: COMMON NORMALS: capillary refill normal, no clubbing, cyanosis or edema, no calf tenderness and no pedal edema Neuro: COMMON NORMALS: patient oriented x3 Psych: COMMON NORMALS: mental status grossly normal OTHER: Does seem to confabulate Urinary Catheter Management^: Haq: Cath Placed During This Visit: yes, but has since been removed by the nurse Reason for Continuing Indwelling Catheter: Decision to DC Catheter Urinary Catheter Date of Insertion: 09/12/20 Urinary Catheter Time of Insertion: 16:34 Date Urinary Catheter Removed: 09/20/20 Time Urinary Catheter Discontinued: 11:02 Data : 09/25/20 06:10 09/25/20 06:10 A&P Assessment and plan (1) New onset atrial fibrillation: Status: Acute (2) Abnormal nuclear stress test: Status: Acute (3) Mixed hyperlipidemia: Status: Acute (4) Benign essential hypertension with target blood pressure below 140/90: Status: Acute (5) Cardiomyopathy: Status: Acute Qualifiers: Cardiomyopathy type: other Qualified Code(s): I42.8 - Other cardiomyopathies (6) Acute blood loss anemia: Status: Acute (7) Metabolic encephalopathy: Status: Acute Additional A&P Information Left hip intertrochanteric fracture. Status post ORIF by Dr. Glaser. Waiting for placement to acute rehab facility. Continue PT OT. Continue pain management. Atrial fibrillation; -As per review of cardiology notes patient has been complaining of palpitations on and off, had a Holter ordered back in September of last year which was unremarkable -Did have frequent PVCs -Does have a documented history of atrial fibrillation, but unclear where this came from -Developed A. fib with RVR overnight, heart rates in the 160s -Treated with Cardizem, and amiodarone -Currently in A. fib heart rates 100s to 110s Plan: -On metoprolol, Cardizem -On aspirin 81 mg due to fall risk, bleed risk -Some component possibly related to alcohol consumption -hemoglobin down to 9.3, according to sister he has history of multiple falls, does have concerns for anemia and slow GI bleed as below, has had 4 significant falls in the last year, fall leading to left hip fracture, likely chronic antic oagulation currently does not seem like a reasonable option -I discussed the risk and benefits with the patient and sister about anticoagulation, he voiced understanding, all questions answered, agreed to discontinue anticoagulation, continue aspirin for now. cardiology agrees -Echocardiogram shows an EF of 40% Systolic heart failure, EF of 40% -Patient did have a positive stress in 2019 -1. Small sized reversible perfusion defect of apical lateral wall and fixed defect in apical inferior wall. This may represent small area of old myocardial infarction in left anterior descending artery territory with small eliecer-infarct ischemia. 2. Overall left ventricular systolic function is normal without regional wall motion abnormalities. 3. The left ventricular ejection fraction is normal with a value of 54% -Patient saw Dr. 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 -Currently alert oriented x3, follows commands, answers questions for the most part appropriately, does seem to confabulate, nystagmus minimal, overall m entation significantly better -Patient was unresponsive Sunday night with horizontal gaze, no significant evidence of a stroke, has no focal neurologic deficits, symptoms more generalized, CT no acute hemorrhage or stroke -It is unclear if patient had a seizure episode Sunday, will hold off on antis eizure medication -Initially his encephalopathy was thought to be related to UTI and alcohol withdrawal -Zosyn discontinued as no evidence of UTI on urine culture, renal ultrasound negative for obstructive uropathy -Likely patient's current symptomatology related to Wernicke's encephalopathy Korsakoff syndrome -Continue 250 mg IV 3 times daily -Continue B12, folic acid -Neurochecks, aspiration precautions -First set of blood cultures negative, repeat blood cultures -Repeat urine cultures all negative so far -on general medical floors, neurochecks, aspiration precautions, seizure precautions Right hand and wrist pain, swelling, now seems as if he is not willing to move his right upper extremity as he is in pain. X-rays are negative for fractures. Doppler was negative for DVT. Continue PT OT and pain management Likely related to gouty attack, significantly improved with Solu-Medrol trial -Does have elevated uric acid levels, has a history of gout, has alcoholism -Doing significantly better today, increase mobility, minimal pain with range of motion -Decrease to prednisone 40 mg daily On 09/20/2020 patient had decreased right upper extremity mobility, with encephalopathy, I did go ahead and perform a stroke evaluation -CT of the head was negative for acute stroke, negative for intracranial bleed -CTA of the head and neck did show high-grade proximal ICA stenosis with a tiny residual lumen, stenosis measures 80 to 85% with reduced caliber ICA, on the right -Thus this would not explain his symptoms on the right upper extremity -He is on aspirin, statin which we continued Right ICA stenosis, high-grade, continue aspirin, statin, will need an outpatient follow-up with Dr. Baugh for surgical intervention at some point Acute blood loss anemia secondary to expected acute blood loss secondary to #1 and possible underlying slow GI bleed. Received iron replacement. Continue monitoring. Stable. On Protonix, Carafate Given new onset atrial fibrillation, will continue aspirin, stop heparin as above Alcoholism, liver ultrasound shows mild hepatomegaly with diffuse infiltration, LFTs within normal limits, no significant bili elevation, INR 1.5, albumin 2.7, ammonia 10, platelet count 289, hemoglobin 8.4, MCV 108.6, no significant evidence of liver cirrhosis at this point, but will have to follow-up with GI as outpatient DT and EtOH withdrawals. Out of window Dehydration and mild hypernatremia. Continue to monitor falls, recurrent likely related to peripheral neuropathy and wernickies related to alcohol use Hypokalemia. Replace and monitor Hypertension. Well-controlled. Continue current management. DVT prophylaxis SCDs, aspirin 81 mg, heparin Patient is awaiting long term placement The plan of care was discussed with the patient and nursing staff. 09/24/2020, awaiting second prior auth to go to long term which has already accepted him, likely till sunday, stop amiodaron, change to cardizem cd 120, pt ot 09/25/2020 continue PT OT, continue to monitor mentation, continue thiamine, monitor heart rates with Cardizem metoprolol, await prior Auth for long term, hopefully discharge on Sunday Attestations Medical Necessity Statement*: Patient requires hospitalization for fall fracture requiring long term placement, A. fib, Wernicke's encephalopathy Coding Level of Care Code Acute [employer] for Chg Fwd Diagnoses New onset atrial fibrillation I48.91 Abnormal nuclear stress test R94.39 Mixed hyperlipidemia E78.2 Benign essential hypertension with target blood pressure below 140/90 I10 Cardiomyopathy I42.8 Cardiomyopathy type: other Acute blood loss anemia D62 Metabolic encephalopathy G93.41
[2020-09-25 17:42] LABS: LAB Peripheral Smear Sent for Review
[2020-09-25] MEDS: atorvastatin 40 mg Tablet PO (17:46)
[2020-09-26] VITALS (7 sets, daily range): BP systolic 114–144; BP diastolic 72–95; PULSE 60–81; RESP 17–20; TEMP 36.4–36.6; O2SAT 92–98
[2020-09-26] MEDS: metoprolol succinate ER (24 HR) 100 mg Tablet PO (06:03)
[2020-09-26] MEDS: sucralfate 1 gm Tablet PO ×4 (06:03→22:16)
[2020-09-26 06:12] LABS: Basophils % 0.1 %; Eosinophils % 0.4 %; Hematocrit 28.3 % (42.0-52.0); Hemoglobin 8.8 g/dL (11.7-16.6); Lymphocytes # 1.1 10^3/uL (0.8-4.8); Lymphocytes % 11.4 %; Mean Corpuscular HGB Conc 31.1 g/dL (30.0-36.0); Mean Corpuscular Hemoglobin 34.1 pg (28.0-34.0); Mean Corpuscular Volume 109.7 fL (80-94); Mean Platelet Volume 13.6 fL (7.4-10.4); Monocytes # 0.9 10^3/uL (0.2-0.9); Monocytes % 8.6 %; Neutrophils # 7.68 10^3/uL (1.8-7.7); Neutrophils % 77.4 %; Nucleated Red Blood Cells % 0.3 %; Platelet Count 282 10^3/cmm (130-400); Positive M 1; Red Blood Count 2.58 10^6/uL (4.1-5.3); Red Cell Distribution Width 15.3 % (12.1-15.1); White Blood Count 9.9 10^3/uL (4.0-10.0)
[2020-09-26 06:53] LABS: Alanine Aminotransferase 75 U/L (0-41); Albumin Level 2.8 g/dL (3.5-5.2); Alkaline Phosphatase 69 IU/L (40-130); Anion Gap 14.6 (5-19); Aspartate Amino Transferase 53 U/L (0-40); Blood Urea Nitrogen 26 mg/dL (8-23); Calcium 8.5 mg/dL (8.5-10.5); Carbon Dioxide 21 mmol/L (22-29); Chloride 109 mmol/L (98-107); Glomerular Filtration Rate 60.6 mL/min (90-130); Glucose 74 mg/dL (65-115); Magnesium 1.9 mg/dL (1.7-2.3); Osmolality Calculated 295 mOsm/kg (285-295); Phosphorus 3.5 mg/dL (2.5-4.5); Potassium 3.6 mmol/L (3.5-5.1); Sodium 141 mmol/L (136-145); Total Bilirubin 0.5 mg/dL (0.15-1.2); Total Protein 5.8 g/dL (6.6-8.7)
[2020-09-26 08:04] LABS: INR 1.42 (0.8-1.2)
[2020-09-26] MEDS: dilTIAZem ER (24HR) 120 mg Capsule PO (08:34)
[2020-09-26] MEDS: FUROsemide 20 mg Tablet PO (08:34)
[2020-09-26] MEDS: multivitamin therapeutic Tablet 1 TAB PO (08:34)
[2020-09-26] MEDS: aspirin 81 mg EC Tablet PO (08:34)
[2020-09-26] MEDS: pantoprazole DR 40 mg Tablet PO ×2 (08:34→17:37)
[2020-09-26] MEDS: predniSONE 20 mg Tablet 40 MG PO (08:34)
[2020-09-26] MEDS: folic acid 1 mg Tablet PO (08:34)
[2020-09-26] MEDS: cyanocobalamin 1,000 mcg Tablet 1000 MCG PO (08:34)
--- NOTE | 2020-09-26 15:43 | PM.PN ---
Subjective Subjective: Interval history: Patient is doing quite well this morning, he sitting up in a chair, yesterday he tells me that he ambulated with physical therapy several times in the bathroom, his hip has been sore since then, he actually has his hair done, he is dressed up in a nice shirt, tells me that he feels well today, is awaiting detention placement Medications: Reviewed: Yes Medication Review Details: Current Medications Acetaminophen (Acetaminophen 500 Mg Tablet) 500 mg PO Q4H PRN PRN Reason: MILD PAIN OR INCREASE TEMP Last Admin: 09/21/20 09:37 Dose: 500 mg Documented by: Aspirin (Aspirin 81 Mg Ec Tablet) 81 mg PO DAILY [facility] Last Admin: 09/24/20 08:30 Dose: 81 mg Documented by: Atorvastatin Calcium (Atorvastatin 40 Mg Tablet) 40 mg PO Q24H [facility] Last Admin: 09/23/20 17:21 Dose: 40 mg Documented by: Cyanocobalamin (Cyanocobalamin 1,000 Mcg Tablet) 1,000 mcg PO DAILY [facility] Last Admin: 09/24/20 08:30 Dose: 1,000 mcg Documented by: Diltiazem HCl (Diltiazem 30 Mg Tablet) 30 mg PO Q6H [facility] Last Admin: 09/24/20 08:25 Dose: 30 mg Documented by: Docusate Sodium (Docusate Sodium 100 Mg Capsule) 100 mg PO BID [facility] Last Admin: 09/24/20 08:26 Dose: 100 mg Documented by: Folic Acid (Folic Acid 1 Mg Tablet) 1 mg PO DAILY [facility] Last Admin: 09/24/20 08:25 Dose: 1 mg Documented by: Folic Acid (Folic Acid 1 Mg Tablet) 1 mg PO DAILY [facility] Last Admin: 09/24/20 08:28 Dose: Not Given Documented by: Metoprolol Succinate (Metoprolol Succinate Er (24 Hr) 100 Mg Tablet) 100 mg PO DAILY@07 [facility] Last Admin: 09/24/20 06:13 Dose: Not Given Documented by: Multivitamins Therapeutic (Multivitamin Therapeutic Tablet) 1 tab PO DAILY [facility] Last Admin: 09/24/20 08:26 Dose: 1 tab Documented by: Multivitamins Therapeutic (Multivitamin Therapeutic Tablet) 1 tab PO DAILY [facility] Last Admin: 09/24/20 08:29 Dose: Not Given Documented by: Pantoprazole Sodium (Pantoprazole Dr 40 Mg Tablet) 40 mg PO BID [facility] Last Admin: 09/24/20 08:26 Dose: 40 mg Documented by: Polyethylene Glycol (Polyethylene Glycol 3350 Pkt 17 Gm) 17 gm PO DAILY [facility] Last Admin: 09/24/20 08:27 Dose: 17 gm Documented by: Prednisone (Prednisone 20 Mg Tablet) 40 mg PO DAILY [facility] Last Admin: 09/24/20 08:26 Dose: 40 mg Documented by: Sucralfate (Sucralfate 1 Gm Tablet) 1 gm PO AC&BEDTIME [facility] Last Admin: 09/24/20 06:12 Dose: 1 gm Documented by: Tamsulosin HCl (Tamsulosin 0.4 Mg Capsule) 0.4 mg PO QAM PRN PRN Reason: unknown Thiamine HCl (Thiamine 100 Mg/Ml Sdv) 100 mg IV Q8H [facility] Last Admin: 09/24/20 06:12 Dose: 100 mg Documented by: Vitals/I&O/Wt Last Vital Signs Temp 97.5 F L 09/26/20 12:00 Pulse 72 09/26/20 14:00 Resp 17 09/26/20 12:00 BP 137/82 09/26/20 12:00 Pulse Ox 98 09/26/20 12:00 09/26/20 09/26/20 09/26/20 06:59 14:59 22:59 Intake Total 600 / 600 Output Total 650 / 1050 300 / 300 Balance -650 / -90 300 / 300 Physical Exam Const: COMMON NORMALS: no acute distress and patient oriented x3 HENMT: COMMON NORMALS: normocephalic HEAD & SCALP: normocephalic Neck/C-Spine: COMMON NORMALS: no JVD Resp: COMMON NORMALS: normal respiratory effort, No retractions, No use of accessory muscles and clear to auscultation bilaterally AUSCULTATION: clear to auscultation bilaterally Cardio: COMMON NORMALS: no JVD, regular rate, regular rhythm, S1 normal heart sound present and S2 normal heart sound present RATE: regular rate RHYTHM: regular rhythm HEART SOUNDS: S1 normal heart sound present and S2 normal heart sound present GI: COMMON NORMALS: Normal to inspection, nondistended, normoactive bowel sounds present, Soft to palpation, non-tender, No hepatosplenomegaly present, no masses and no bruits PALPATION: Yes Soft to palpation and Yes No hepatosplenomegaly present Extremity: COMMON NORMALS: capillary refill normal, no clubbing, cyanosis or edema, no calf tenderness and no pedal edema Neuro: COMMON NORMALS: patient oriented x3 Psych: COMMON NORMALS: mental status grossly normal Urinary Catheter Management^: Haq: Cath Placed During This Visit: yes, but has since been removed by the nurse Reason for Continuing Indwelling Catheter: Decision to DC Catheter Urinary Catheter Date of Insertion: 09/12/20 Urinary Catheter Time of Insertion: 16:34 Date Urinary Catheter Removed: 09/20/20 Time Urinary Catheter Discontinued: 11:02 Data : 09/26/20 05:46 09/26/20 05:46 Micro: Microbiology 09/20/20 12:04 Blood Culture - Final Blood NO GROWTH AFTER 5 DAYS 09/20/20 12:04 Blood Culture - Final Blood NO GROWTH AFTER 5 DAYS A&P Assessment and plan (1) New onset atrial fibrillation: Status: Acute (2) Abnormal nuclear stress test: Status: Acute (3) Mixed hyperlipidemia: Status: Acute (4) Benign essential hypertension with target blood pressure below 140/90: Status: Acute (5) Cardiomyopathy: Status: Acute Qualifiers: Cardiomyopathy type: other Qualified Code(s): I42.8 - Other cardiomyopathies (6) Acute blood loss anemia: Status: Acute (7) Metabolic encephalopathy: Status: Acute Additional A&P Information Left hip intertrochanteric fracture. Status post ORIF by Dr. Glaser. Waiting for placement to acute rehab facility. Continue PT OT. Continue pain management. Atrial fibrillation; -As per review of cardiology notes patient has been complaining of palpitations on and off, had a Holter ordered back in September of last year which was unremarkable -Did have frequent PVCs -Does have a documented history of atrial fibrillation, but unclear where this came from -Developed A. fib with RVR overnight, heart rates in the 160s -Treated with Cardizem, and amiodarone -Currently in A. fib heart rates 100s to 110s Plan: -On metoprolol, Cardizem -On aspirin 81 mg due to fall risk, bleed risk -Some component possibly related to alcohol consumption -hemoglobin down to 9.3, according to sister he has history of multiple falls, does have concerns for anemia and slow GI bleed as below, has had 4 significant falls in the last year, fall leading to left hip fracture, likely chronic anticoagulation currently does not seem like a reasonable option -I discussed the risk and benefits with the patient and sister about anticoagulation, he voiced understanding, all questions answered, agreed to discontinue anticoagulation, continue aspirin for now. cardiology agrees -Echocardiogram shows an EF of 40% Systolic heart failure, EF of 40% -Patient did have a positive stress in 2019 -1. Small sized reversible perfusion defect of apical lateral wall and fixed defect in apical inferior wall. This may represent small area of old myocardial infarction in left anterior descending artery territory with small eliecer-infarct ischemia. 2. Overall left ventricular systolic function is normal without regional wall motion abnormalities. 3. The left ventricular ejection fraction is normal with a value of 54% -Patient saw Dr. 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 -Currently alert oriented x3, follows commands, answers questions for the most part appropriately, does seem to confabulate, nystagmus minimal, overall mentation significantly better -Patient was unresponsive Sunday night with horizontal gaze, no significant evidence of a stroke, has no focal neurologic deficits, symptoms more generalized, CT no acute hemorrhage or stroke -It is unclear if patient had a seizure episode Sunday, will hold off on antiseizure medication -Initially his encephalopathy was thought to be related to UTI and alcohol withdrawal -Zosyn discontinued as no evidence of UTI on urine culture, renal ultrasound negative for obstructive uropathy -Likely patient's current symptomatology related to Wernicke's encephalopathy Korsakoff syndrome -Continue 250 mg IV 3 times daily -Continue B12, folic acid -Neurochecks, aspiration precautions -First set of blood cultures negative, repeat blood cultures -Repeat urine cultures all negative so far -on general medical floors, neurochecks, aspiration precautions, seizure precautions Right hand and wrist pain, swelling, now seems as if he is not willing to move his right upper extremity as he is in pain. X-rays are negative for fractures. Doppler was negative for DVT. Continue PT OT and pain management Likely related to gouty attack, significantly improved with Solu-Medrol trial -Does have elevated uric acid levels, has a history of gout, has alcoholism -Doing significantly better today, increase mobility, minimal pain with range of motion -Decrease to prednisone 40 mg daily On 09/20/2020 patient had decreased right upper extremity mobility, with encephalopathy, I did go ahead and perform a stroke evaluation -CT of the head was negative for acute stroke, negative for intracranial bleed -CTA of the head and neck did show high-grade proximal ICA stenosis with a tiny residual lumen, stenosis measures 80 to 85% with reduced caliber ICA, on the right -Thus this would not explain his symptoms on the right upper extremity -He is on aspirin, statin which we continued Right ICA stenosis, high-grade, continue aspirin, statin, will need an outpatient follow-up with Dr. Baugh for surgical intervention at some point Acute blood loss anemia secondary to expected acute blood loss secondary to #1 and possible underlying slow GI bleed. Received iron replacement. Continue monitoring. Stable. On Protonix, Carafate Given new onset atrial fibrillation, will continue aspirin, stop heparin as above Alcoholism, liver ultrasound shows mild hepatomegaly with diffuse infiltration, LFTs within normal limits, no significant bili elevation, INR 1.5, albumin 2.7, ammonia 10, platelet count 289, hemoglobin 8.4, MCV 108.6, no significant evidence of liver cirrhosis at this point, but will have to follow-up with GI as outpatient DT and EtOH withdrawals. Out of window Dehydration and mild hypernatremia. Continue to monitor falls, recurrent likely related to peripheral neuropathy and wernickies related to alcohol use Hypokalemia. Replace and monitor Hypertension. Well-controlled. Continue current management. DVT prophylaxis SCDs, aspirin 81 mg, heparin Transaminitis, likely secondary to amiodarone Patient is awaiting detention placement The plan of care was discussed with the patient and nursing staff. 09/24/2020, awaiting second prior auth to go to detention which has already accepted him, likely till sunday, stop amiodaron, change to cardizem cd 120, pt ot 09/25/2020 continue PT OT, continue to monitor mentation, continue thiamine, monitor heart rates with Cardizem metoprolol, await prior Auth for detention, hopefully discharge on Sunday09/25/2020 continue PT OT, continue monitor mentation, continue thiamine, monitor heart rates, awaiting prior auth to detention, likely will be discharged to detention tomorrow Attestations Medical Necessity Statement*: Patient requires hospitalization, for Warnicke's encephalopathy, hip fracture, awaiting detention placement Coding Level of Care Code Acute Pressurised [employer] for Chg Fwd Diagnoses New onset atrial fibrillation I48.91 Abnormal nuclear stress test R94.39 Mixed hyperlipidemia E78.2 Benign essential hypertension with target blood pressure below 140/90 I10 Cardiomyopathy I42.8 Cardiomyopathy type: other Acute blood loss anemia D62 Metabolic encephalopathy G93.41
--- NOTE | 2020-09-26 16:34 | PC.SOCIAL ---
IM follow up explained and form given. Patient has no questions or concerns.
[2020-09-26] MEDS: atorvastatin 40 mg Tablet PO (17:37)
[2020-09-27] VITALS: BP 160/86; PULSE 80; RESP 20; TEMP 36.7; O2SAT 96
[2020-09-27 04:00] VITALS: BP 135/87; PULSE 58; RESP 18; TEMP 36.5; O2SAT 94
--- NOTE | 2020-09-27 06:06 | PC.NURSE ---
Pt heart rate 58, Dr. Madrid notified and new orders to hold morning dose of metoprolol 100 mg ER received.
[2020-09-27] MEDS: sucralfate 1 gm Tablet PO ×2 (06:20→10:15)
[2020-09-27 07:36] VITALS: BP 146/89; PULSE 70; RESP 18; TEMP 36.6; O2SAT 99
[2020-09-27 07:44] LABS: Basophils % 0.2 %; Eosinophils # 0.1 10^3/uL (0.0-0.8); Eosinophils % 0.7 %; Hematocrit 29.4 % (42.0-52.0); Hemoglobin 9.5 g/dL (11.7-16.6); Lymphocytes # 1.4 10^3/uL (0.8-4.8); Lymphocytes % 11.1 %; Mean Corpuscular HGB Conc 32.3 g/dL (30.0-36.0); Mean Corpuscular Hemoglobin 35.1 pg (28.0-34.0); Mean Corpuscular Volume 108.5 fL (80-94); Mean Platelet Volume 13.3 fL (7.4-10.4); Monocytes # 1.2 10^3/uL (0.2-0.9); Monocytes % 9.1 %; Neutrophils # 9.99 10^3/uL (1.8-7.7); Neutrophils % 77.2 %; Nucleated Red Blood Cells % 0 %; Platelet Count 334 10^3/cmm (130-400); Red Blood Count 2.71 10^6/uL (4.1-5.3); Red Cell Distribution Width 15.7 % (12.1-15.1); White Blood Count 12.9 10^3/uL (4.0-10.0)
[2020-09-27 08:05] LABS: Alanine Aminotransferase 84 U/L (0-41); Alkaline Phosphatase 78 IU/L (40-130); Anion Gap 15.7 (5-19); Aspartate Amino Transferase 47 U/L (0-40); Blood Urea Nitrogen 26 mg/dL (8-23); Calcium 8.6 mg/dL (8.5-10.5); Carbon Dioxide 20 mmol/L (22-29); Chloride 103 mmol/L (98-107); Globulin 2.9 g/dL (1.3-4.6); Glomerular Filtration Rate 60.6 mL/min (90-130); Glucose 76 mg/dL (65-115); Magnesium 1.9 mg/dL (1.7-2.3); Osmolality Calculated 284 mOsm/kg (285-295); Phosphorus 3.5 mg/dL (2.5-4.5); Potassium 3.7 mmol/L (3.5-5.1); Sodium 135 mmol/L (136-145); Total Bilirubin 0.5 mg/dL (0.15-1.2); Total Protein 5.9 g/dL (6.6-8.7)
[2020-09-27] MEDS: multivitamin therapeutic Tablet 1 TAB PO ×2 (08:40)
[2020-09-27] MEDS: pantoprazole DR 40 mg Tablet PO (08:41)
[2020-09-27] MEDS: FUROsemide 20 mg Tablet PO (08:41)
[2020-09-27] MEDS: dilTIAZem ER (24HR) 120 mg Capsule PO (08:41)
[2020-09-27] MEDS: aspirin 81 mg EC Tablet PO (08:41)
[2020-09-27] MEDS: predniSONE 20 mg Tablet 40 MG PO (08:41)
[2020-09-27] MEDS: cyanocobalamin 1,000 mcg Tablet 1000 MCG PO (08:41)
[2020-09-27] MEDS: folic acid 1 mg Tablet PO ×2 (08:42)
--- NOTE | 2020-09-27 09:43 | PC.CHAP ---
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 visit [] Patient/Family/Request visit [] Outpatient visit [] Follow-up visit [] Physician referral [] Code/Alert [x] Routine visit [] Staff referral [] Actively dying [] Patient sleeping [] Family support [] [] Out of room [] Palliative care [] [] Receiving care in room [] Pre-surgical visit [] Trauma [] Long length of stay [] ICU visit [] Other: Relational/Emotional Strength [x] Patient feels connected with others/family/visitors/staff [] Distress [] Loneliness/isolation [] Abandonment Spirituality of Patient [x] Person of Michelle [] Attends Jainism of their Michelle [] Believes in Prayer [] Reads Bible or Rastafarian materials [] There are Spiritual issues to be addressed Heel Brusher Interventions [x] Prayer [x] Active listening [x] Non-anxious presence [x] Spiritual/emotional support [] Crisis/trauma care [] Spiritual counseling [] Bereavement support [] Provided bereavement packet [] Provided Bible/devotional materials [] Provided toy/stuffed animal, coloring book to patient or family member [] Provided Communion [] Anointing/[place] [] Salvation [] Completed spiritual assessment [] Other: Impact on Illness or Injury [] Angry [] Fearful [] Anxious [] Often cries [] Exhaustion [] Unable to work [] Unable to attend voodoo [] Unable to walk/stand [] Unable to read [] Unable to drive [] Unable to eat/drink [] Unable to sleep [] Unable to be with family [] Patient intubated [] Other: Summary Time spent with patient 10 min
[2020-09-27 11:42] VITALS: BP 117/83; PULSE 73; RESP 18; TEMP 36.4; O2SAT 98
[2020-09-27 16:00] VITALS: BP 120/80; PULSE 75; RESP 18; TEMP 37; O2SAT 96
[2020-09-27 17:14] VITALS: BP 120/80; PULSE 75; RESP 18; TEMP 37; O2SAT 96
== END 2020-09-27 16:40 | disposition skilled nursing facility (03) | DRG 480 ==
LOC: ER 14:37 → MEDSURG 15:20 → ICU 09-20 22:54 → MEDSURG 09-23 13:30
PROVIDERS: Internal Medicine; Internal Medicine Cardiovascular Disease; Student in an Organized Health Care Education/Training Program; Admitting Provider Orthopaedic Surgery; Emergency Provider Emergency Medicine; PCP Family Medicine; Visit Provider Family Medicine
PROC: 0QS704Z Reposition Left Upper Femur with Internal Fixation Device, Open Approach (ICD-10-PCS; CPT 27236; principal; 2020-09-13 07:45)
DX: S72.032A Displaced midcervical fracture of left femur, initial encounter for closed fracture (principal); G92 Toxic encephalopathy; I50.20 Unspecified systolic (congestive) heart failure; F10.239 Alcohol dependence with withdrawal, unspecified; D62 Acute posthemorrhagic anemia; N39.0 Urinary tract infection, site not specified; F10.259 Alcohol dependence with alcohol-induced psychotic disorder, unspecified; I42.8 Other cardiomyopathies; E51.2 Wernicke's encephalopathy; E87.0 Hyperosmolality and hypernatremia; W00.0XXA Fall on same level due to ice and snow, initial encounter; Z96.641 Presence of right artificial hip joint; I48.91 Unspecified atrial fibrillation; I11.0 Hypertensive heart disease with heart failure; E78.2 Mixed hyperlipidemia; Z98.84 Bariatric surgery status; D50.0 Iron deficiency anemia secondary to blood loss (chronic); I49.3 Ventricular premature depolarization; R94.39 Abnormal result of other cardiovascular function study; E87.6 Hypokalemia; M79.621 Pain in right upper arm; I65.21 Occlusion and stenosis of right carotid artery; R16.0 Hepatomegaly, not elsewhere classified; N40.1 Benign prostatic hyperplasia with lower urinary tract symptoms; M10.9 Gout, unspecified; E86.0 Dehydration
CPT/HCPCS: 36415; 36416; 51702; 70450; 70496; 70498; 71045; 73030; 73090; 73120; 73502; 73700; 76000; 76705; 76770; 80053; 80061; 80069; 80306; 80500; 81001; 82140; 82436; 82550; 82570; 82607; 82746; 82803; 82962; 83036; 83540; 83550; 83690; 83721; 83735; 83880; 84100; 84133; 84145; 84300; 84443; 84484; 84540; 84550; 85007; 85014; 85018; 85025; 85049; 85610; 85730; 85999; 86140; 87040; 87077; 87086; 87186; 87635; 93005; 93306; 93971; 96372; 96374; 97110; 97116; 97162; 97166; 97168; 97530; 97535; 99285; C1713; G0378; J0282; J0690; J0696; J1100; J1644; J1756; J1940; J2060; J2270; J2543; J2920; J3010; J3411; J3475; J3480; J3490; J7030; J7060; J7512; Q9967

== ENCOUNTER → 2020-10-11 12:27 | Outpatient (BNVA) | payer MEDICARE, SELFPAY | PROVIDERS: PCP Family Medicine; Referring Provider Family Medicine; Visit Provider Specialist | DX: G40.909 Epilepsy, unspecified, not intractable, without status epilepticus (principal); I65.29 Occlusion and stenosis of unspecified carotid artery; I42.8 Other cardiomyopathies; I48.91 Unspecified atrial fibrillation; F10.20 Alcohol dependence, uncomplicated | CPT/HCPCS: 99205 ==

== ENCOUNTER → 2020-10-12 09:11 | Outpatient (BNVA) | payer OTHER, SELFPAY | PROVIDERS: PCP Family Medicine; Visit Provider Orthopaedic Surgery | DX: Z48.89 Encounter for other specified surgical aftercare (principal); S72.042D Displaced fracture of base of neck of left femur, subsequent encounter for closed fracture with routine healing; X58.XXXD Exposure to other specified factors, subsequent encounter | CPT/HCPCS: 73502 ==

== ENCOUNTER → 2020-10-26 12:49 | Outpatient (BNVA) | payer MEDICARE, SELFPAY | PROVIDERS: PCP Family Medicine; Visit Provider Specialist | DX: R56.9 Unspecified convulsions (principal); E51.2 Wernicke's encephalopathy; G93.41 Metabolic encephalopathy; F04 Amnestic disorder due to known physiological condition; F10.10 Alcohol abuse, uncomplicated | CPT/HCPCS: 95816 ==

== ENCOUNTER → 2020-11-16 10:14 | Outpatient (BNVA) | payer MEDICARE, SELFPAY | PROVIDERS: PCP Family Medicine; Visit Provider Orthopaedic Surgery | DX: M17.11 Unilateral primary osteoarthritis, right knee (principal); Z96.652 Presence of left artificial knee joint | CPT/HCPCS: 73560; 73565 ==

== ENCOUNTER 2020-12-14 14:20 | Outpatient (CLI) | payer MEDICARE, SELFPAY ==
--- NOTE | 2020-12-14 14:36 | US_ITS ---
WS: [id number] ULTRASOUND RENAL TECHNIQUE: Ultrasound examination of both kidneys. CLINICAL INFORMATION: STAGE 3 CHRONIC KIDNEY DZ COMPARISON: None. FINDINGS: RIGHT: Right kidney is normal in size and appearance. Echogenicity: Normal. Cortical thickness: 1.5 cm; Normal. Hydronephrosis: None. Perinephric fluid: None. Right kidney measures: 8.9 cm x 5.0 cm x 5.4 cm. LEFT: Left kidney is normal in size and appearance. Echogenicity: Normal. Cortical thickness: 1.8 cm; Normal. Hydronephrosis: None. Perinephric fluid: None. Left kidney measures: 10.7 cm x 6.4 cm x 6.3 cm. Normal visualized aorta. Small amount of debris in the bladder. US/US renal BI* [id number] IMPRESSION: 1. No hydronephrosis in either kidney. 2. Small amount of debris in the bladder.
== END 2020-12-14 14:21 | disposition home or self-care (01) ==
LOC: RAD 14:25
PROVIDERS: PCP Family Medicine; Visit Provider Internal Medicine Nephrology
DX: N18.32 Chronic kidney disease, stage 3b (principal)
CPT/HCPCS: 76770

== ENCOUNTER → 2020-12-22 09:21 | Outpatient (BNVA) | payer MEDICARE, SELFPAY | PROVIDERS: PCP Family Medicine; Visit Provider Thoracic Surgery (Cardiothoracic Vascular Surgery) | DX: I65.23 Occlusion and stenosis of bilateral carotid arteries (principal); Z20.822 Contact with and (suspected) exposure to COVID-19 | CPT/HCPCS: 87635 ==

== ENCOUNTER → 2020-12-28 10:25 | Outpatient (BNVA) | payer MEDICARE, SELFPAY | PROVIDERS: PCP Family Medicine; Visit Provider Thoracic Surgery (Cardiothoracic Vascular Surgery) | DX: Z01.812 Encounter for preprocedural laboratory examination (principal); Z20.822 Contact with and (suspected) exposure to COVID-19 | CPT/HCPCS: 87635 ==

== ENCOUNTER 2021-01-03 09:55 | Inpatient (IN) | payer MEDICARE, SELFPAY ==
[2020-12-22 11:58] VITALS: BMI 28.8
--- NOTE | 2020-12-22 12:19 | P.ANESASSM_ITS ---
Pre-Anesthetic Assessment Pre-Anesthetic Assessment: Height/Weight: Height 1.82 m Weight 95.254 kg Preop Diagnosis: Carotid stenosis Proposed Procedure: Operation Date: 01/03/21 07:30 Proposed Procedures p Carotid Endarterectomy(Right) - Craig Baugh MD Familial anesthetic complications: none Social: Social History: No alcohol and No tobacco Comment: former ETOH Exam: Pre-Anes Outpt Exam: alert, oriented x 3, clear to auscultation bilaterally and regular rate & rhythm Airway: Cervical ROM: WNL MP: 2 Dentition: Full Additional comments: impacted tooth, but denies infection CV/HEM: CV/HEM: Afib, Anemia, Arrythmia (PVCs), CHF (systolic HF), HTN and Palp Comments: 2020 echo CONCLUSIONS 1-Mildly increased left ventricular cavity size. Moderately decreased left ventricular systolic function. Left ventricular ejection fraction is estimated at 40 %. In the presence of atrial fibrillation diastolic function cannot be assessed accurately. 2-There is no pericardial effusion. 3-Pulmonary artery systolic pressure is within normal limits. 4-No significant valve abnormalities. 6-Right atrial pressure is around 5 mm of mercury. 7-There are no prior echocardiogram studies to compare. Hepatic: Comments: hx of alchohol abuse Metabolic: Metabolic: Hyperlipidemia Musc/skel: Comments: L HIp fracture in august - still in wheelchair and/or using cane Neuropsych: Comments: 90% JOSE stenosis hx wernicke's encephalopathty + korsakoff Anesthetic Plan: ASA status: 4 Anesthesia: General Other: A line Risk of > 500 ml blood loss (7ml/kg in children): No PFSH Anesthesia PFSH: Medical History Abnormal nuclear stress test Alcohol abuse Benign essential hypertension with target blood pressure below 140/90 BPH loc w urin obs/LUTS Elevated PSA Hypertension Intermittent palpitations Intestinal malrotation Mixed hyperlipidemia Premature ventricular contractions Somnolence, daytime Surgical History History of bariatric surgery Gastric sleeve ([place]) History of left knee surgery History of right hip replacement History of ventral hernia repair x 2, supraumbilical, second time with mesh Family History Sister Clotting disorder Father CAD (coronary artery disease) Grandmother Dementia Mother Lung disease Denies family history of Diabetes Chronic kidney disease (CKD) Suicide Anesthesia complication Bleeding disorder Cancer Stroke Social History Smoking and tobacco status: never smoked Alcohol intake: current Alcohol intake frequency: 3 or more drinks per day Counseling given: Yes Household members: spouse Housing: House Data Anesthesia Cardiac Studies: Cardiac Event Monitor 11/02/20 Holter Monitor 10/13/19
[2020-12-22 13:36] LABS: Add Urine Microscopic? YES; Bilirubin Urine Neg (Negative); Blood Urine Neg (Negative); Glucose Urine UA Norm (Normal); Ketones Urine Negative (Negative); Leukocyte Esterase Urine 2+ (Negative); Nitrate Urine Negative (Negative); Protein Urine Neg (Negative); Specific Gravity, Urine 1.005 (1.005-1.030); Urine Appearance Hazy (CLEAR); Urine Color Yellow (Yellow); Urobilinogen Urine Norm (Negative); pH Urine 6.5 (5-7)
[2020-12-22 13:55] LABS: RBC Urine 0-4 /hpf (0-2); Squamous Epithelial Cell Urine 0-4 /hpf (0-5)
[2020-12-22 13:56] LABS: Add Urine Culture? No; Bacteria Urine 1+ /hpf
[2020-12-28 09:58] LABS: Basophils % 0.3 %; Eosinophils # 0.1 10^3/uL (0.0-0.8); Eosinophils % 1.7 %; Hematocrit 38.6 % (42.0-52.0); Hemoglobin 12.3 g/dL (11.7-16.6); Lymphocytes # 0.6 10^3/uL (0.8-4.8); Lymphocytes % 10.2 %; Mean Corpuscular HGB Conc 31.9 g/dL (30.0-36.0); Mean Corpuscular Hemoglobin 31.3 pg (28.0-34.0); Mean Corpuscular Volume 98.2 fL (80-94); Mean Platelet Volume 11.1 fL (7.4-10.4); Monocytes # 0.7 10^3/uL (0.2-0.9); Monocytes % 11.6 %; Neutrophils # 4.59 10^3/uL (1.8-7.7); Neutrophils % 75.9 %; Nucleated Red Blood Cells % 0 %; Platelet Count 271 10^3/cmm (130-400); Red Blood Count 3.93 10^6/uL (4.1-5.3); Red Cell Distribution Width 15.3 % (12.1-15.1); White Blood Count 6.1 10^3/uL (4.0-10.0)
[2020-12-28 10:10] LABS: INR 0.96 (0.8-1.2)
[2020-12-28 10:25] LABS: Anion Gap 16.1 (5-19); Blood Urea Nitrogen 15 mg/dL (8-23); Calcium 9.1 mg/dL (8.5-10.5); Carbon Dioxide 25 mmol/L (22-29); Chloride 106 mmol/L (98-107); Glomerular Filtration Rate 134.8 mL/min (90-130); Glucose 109 mg/dL (65-115); Osmolality Calculated 297 mOsm/kg (285-295); Potassium 4.1 mmol/L (3.5-5.1); Sodium 143 mmol/L (136-145)
[2021-01-03] VITALS (72 sets, daily range): BP systolic 80–138; BP diastolic 47–82; PULSE 40–104; RESP 12–28; TEMP 36.7–36.9; O2SAT 87–94
--- NOTE | 2021-01-03 05:35 | ECG_ITS ---
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 Measurements Intervals [place] Rate: 96 P: 55 NM: 132 QRS: 14 QRSD: 99 T: 43 QT: 361 QTc: 456 Interpretive Statements SINUS RHYTHM WITH OCCASIONAL SUPRAVENTRICULAR PREMATURE COMPLEXES Compared to ECG 09/23/2020 06:05:15 T-wave abnormality no longer present Electronically Signed On 01-03-2021 12:36:34 CDT by Edmond Chopra M.D. [id number]
[2021-01-03] MEDS: sodium chloride 0.9% 1,000 ML 30 ML IV (06:00)
--- NOTE | 2021-01-03 06:18 | W.PM.OPSUD ---
Surgery/Procedure H&P Update DATE OF PROCEDURE: January 03, 2021 DATE H&P PERFORMED: 12/09/20 H&P UPDATE INFORMATION: I have reviewed H&P completed within last 30 days, I have examined patient prior to procedure and Changes to prior documentation as noted here (Mr. Hardy does complain of some left wrist and ankle pain related to gout. His primary care provider is treating this. He does not wish to delay surgery.) PREOP DIAGNOSIS: Right carotid endarterectomy PRIMARY INDICATION FOR PROCEDURE: 90% right proximal ICA stenosis PLANNED PROCEDURE: Operation Date: 01/03/21 07:00 Proposed Procedures p Carotid Endarterectomy(Right) - Craig Baugh MD
[2021-01-03] MEDS: vancomycin 1,000 MG SDV 1000 MG IRRIGATION ×2 (07:41→10:32)
[2021-01-03] MEDS: heparin, porcine 1,000 unit/mL INJ 10 mL 2000 UNIT IRRIGATION ×2 (07:41→10:31)
--- NOTE | 2021-01-03 09:57 | P.OP_ITS ---
Operative Report Date of procedure: January 03, 2021 Pre-op Diagnosis: High-grade proximal right ICA stenosis Post-op diagnosis: same Procedure Done: Right carotid endarterectomy with patch angioplasty Implants: Hemoshield patch Specimens removed/disposition: Carotid artery plaque Surgeon: Craig Baugh Anesthesia: General Complications: None: Grossly neurologically intact immediately postop Findings: Bulky atheromatous plaque with discrete fibrotic stenosis at proximal right ICA Condition: stable Disposition: ICU Brief History: Mr. Hardy is a 65-year-old gentleman referred to our service for a high-grade discrete 90% right ICA stenosis. This was found postoperatively following hip surgery when he had postop delirium and confusion. No discrete localizing signs. He underwent careful outpatient evaluation and carotid endarterectomy was recommended to reduce his statistical increased risk for sp ontaneous CVA related with high-grade lesion. Details the risk of the procedure were carefully and frankly discussed. Appropriate consents were reviewed and signed. Procedure: Mr. Hardy was placed on the OR table and underwent general endotracheal anesthesia with a neurological monitoring endotracheal tube as well as placement of a right radial arterial line. Bihemispheric monitoring pads were placed as well as grounding and sensing pads for nerve conduction evaluation during neck dissection.The entire upper chest and right neck were sterilely prepped and draped. Incision was made along the anterior border of the sternomastoid muscle and carried down to the platysma with cautery. Dissection from this point forward was carried out utilizing Metzenbaum scissors and limited use of bipolar cautery. The internal jugular vein was dissected free and the facial vein was ligated, oversewn, and divided. Dissection was continued down through the ansa cervicalis with preservation of major branches. Minor branches were divided if required to allow for adequate exposure. Nerve conduction evaluation was performed throughout the dissection for protection of the recurrent nerve. We subsequently reached the common carotid artery. Dissection was then continued proximally to distally across the bifurcation. Vessel loops were placed around the common carotid artery, internal carotid artery, and external carotid artery. Distally, the base of the hypoglossal nerve could be identified and was protected. The bifurcation extended to just below the angle of the mandible. This did require some traction in this region, but great care was taken to minimize pressure to the hypoglossal nerve, which was protected. Care was taken during this dissection to avoid injury to the vagus nerve. The patient was then heparinized with 10,000 units. The systolic blood pressure was elevated to 160. Following this, in a rapid sequenced fashio n, the distal internal carotid artery was clamped followed by clamping of the common carotid artery and external carotid artery. #11 scalpel blade was used to open the common carotid artery proximally. Car scissors were then utilized to extend this arteriotomy across the distal common carotid artery and ulcerated very stenotic plaque and continue this further at the bifurcation across the calcific plaque in the internal carotid artery until we had reached normal intima. The internal carotid artery clamp was briefly flashed with evidence of brisk back bleeding, therefore we elected not to shunt. It should be noted that bi-hemispheric oximetry was recorded throughout the procedure. Next, a freer elevator was utilized to create a dissection plane the plaque from intima at the proximal portion of the arteriotomy. This was then divided with a #11 scalpel blade. This plaque was then further dissected along the intimal plane proximally to distally across the bifurcation. Utilizing an everting technique, plaque was removed from the external carotid artery with brisk flow. This plaque was then dissected free up the internal carotid artery to a feathered edge. Heparinized saline solution was utilized to remove any loose debris. Next, a Hemashield patch was brought into the field and sewn into position utilizing a running 6-0 Prolene suture, thereby completing our patch angioplasty. At the completion of the patch, the external carotid artery was opened followed by the common carotid artery and finally the internal carotid artery, thereby reestablishing cerebral flow. Areas of extravasation were repaired with 6-0 Prolene suture. After 5 minutes, heparin was partially reversed with protamine. Hemostasis was confirmed. The wound was irrigated with antibiotic solution. Was noted, not consistent with the CTA, the internal carotid artery was relatively small and was noted to be relatively small on both sides by CTA. Following reestablishment of flow, Doppler interrogation was performed as well as utilization of a flow probe to confirm adequate antegrade flow. A small, flat, Jeremiah-Blevins drain was placed in the wound and connected to bulb suction. Sponge and needle count was correct. The wound was then closed in 2 layers of 3-0 Vicryl suture. Skin was reapproximated in a subcuticular manner with 4-0 Monocryl suture. A pressure dressing was then applied. The patient was awakened from anesthesia and spontaneous movement of all extremities as well as movement to command was noted. Mr. Hardy was then transferred to the ICU in stable condition. We did attempt to contact his sister by phone but was unsuccessful. Voice message was left that we were attempting to contact her, about her brother's surgery. No identifying medical details were left. He will be monitored in the ICU for the next 24 hours.
[2021-01-03] MEDS: lidocaine 1% INJ 20 mL INTRADERMA (10:31)
[2021-01-03] MEDS: aspirin 81 mg Chew Tablet PO (10:42)
[2021-01-03] MEDS: lactated ringers 1,000 ML 100 ML IV ×2 (10:42→19:58)
--- NOTE | 2021-01-03 14:24 | ANE.PACU2 ---
Inpatient post-anesthesia follow up: Airway intact: Yes Vital signs: Temperature 98.5 F Pulse Rate 94 Respiratory Rate 18 Blood Pressure 138/82 Pulse Oximetry 93 Oxygen Delivery Me thod Oxymask Oxygen Flow Rate Fraction of Inspir ed Oxygen Hydration adequate: Yes Nausea and vomiting: No Pain level: 2 Mental status: Baseline
[2021-01-03] MEDS: HYDROcodone-acetaminophen 5-325 mg Tablet 1 TAB PO (20:43)
--- NOTE | 2021-01-03 22:06 | XRR_ITS ---
PROCEDURE INFORMATION: Exam: XR Chest Exam date and time: 01/03/2021 10:22 PM Age: 65 years old Clinical indication: Device placement; Ng tube; Additional info: Ng tube placement TECHNIQUE: Imaging protocol: XR of the chest. Views: 1 view. COMPARISON: CR XR chest 1V portable [id number] 09/20/2020 11:18 AM FINDINGS: Tubes, catheters and devices: Nasogastric tube tip below the left diaphragm over the gastric bubble. Lungs: Right mid lung field pneumonic infiltrate with extension to the hilar region. Pleural spaces: Unremarkable. No pleural effusion. No pneumothorax. Heart/Mediastinum: Unremarkable. No cardiomegaly. Bones/joints: Unremarkable.
[2021-01-04] VITALS (112 sets, daily range): BP systolic 95–151; BP diastolic 61–116; PULSE 38–103; RESP 11–26; TEMP 36.6–36.9; O2SAT 88–96; BMI 30.5
[2021-01-04] MEDS: lactated ringers 1,000 ML 100 ML IV (06:11)
--- NOTE | 2021-01-04 06:23 | P.PN_ITS ---
Subjective Subjective: Interval history: POD #1 status post right carotid endarterectomy. Uneventful night. No phonation or swallowing difficulties. Postoperative discomfort under good control. Low ANASTASIIA drain output/30 cc overnight. Vitals/I&O/Wt Last Vital Signs Temp 97.8 F 01/04/21 04:00 Pulse 72 01/04/21 06:00 Resp 16 01/04/21 05:50 BP 101/70 01/04/21 05:50 Pulse Ox 92 01/04/21 05:35 01/03/21 01/03/21 01/04/21 14:59 22:59 06:59 Intake Total 1290 / 1290 1166.667 / 2456.667 1250 / 3706.667 Output Total 400 / 400 800 / 1200 Balance 1290 / 1290 766.667 / 2056.667 450 / 2506.667 Weight last 48 hrs Weight 222 lb 1 oz Physical Exam Const: COMMON NORMALS: patient oriented x3 Neck/C-Spine: COMMON NORMALS: full ROM OTHER: Neck incision clean and dry. No swelling. ANASTASIIA drain removed. New dressing reapplied. Neuro: COMMON NORMALS: patient oriented x3, no focal motor deficits and no sensory deficits noted Urinary Catheter Management^: Haq: Cath Placed During This Visit: yes Reason for Continuing Indwelling Catheter: Accurate Measurement of Urinary Output in Critically Ill Patients Urinary Catheter Date of Insertion: 01/03/21 Urinary Catheter Time of Insertion: 07:20 Data : 12/28/20 09:48 12/28/20 09:48 A&P Assessment and plan (1) S/P carotid endarterectomy: POD #1 status post right carotid endarterectomy. Recovering well. No difficulties. Plan: We will plan for discharge to home today with follow-up in our clinic in [address] him on aspirin 81 mg daily in addition to his home medications. Status: Acute Attestations Medical Necessity Statement*: POD #1 status post right carotid endarterectomy. Recovering well. Time Spent in Patient Care: 16 - 35 minutes Coding Level of Care Code Acute Organ Pipe Maker Metal for Chg Fwd Diagnoses S/P carotid endarterectomy Z98.890
--- NOTE | 2021-01-04 06:31 | PC.NURSE ---
Wrong Patient Chest X Ray Chest x-ray results were imported to the wrong patient chart. This patient does not have an NG tube and has not had an NG tube throughout this stay at the hospital. Called x-ray dept. to let them know that the results were put in wrong patient chart and they said they would look into fixing the issue.
--- NOTE | 2021-01-04 06:33 | P.DS_ITS ---
Discharge Providers Date of Admission: 01/03/21 09:55 Date of Discharge: January 04, 2021 Attending Provider at Admission: Craig Baugh MD Attending Provider at Discharge: Craig Baugh MD Primary Care Provider: Mallika Ceja MD Diagnoses at Discharge Discharge Diagnosis (1) S/P carotid endarterectomy: Status: Acute Reason for Visit Reason for Visit: Carotid Endarterectomy Hospital Course Hospital Course Mr. Hardy is a 65-year-old gentleman who had been originally referred to our service for a 90% right ICA stenosis following CTA which was performed for postop confusion after left femoral neck fracture repair. He underwent careful outpatient evaluation and was electively admitted yesterday, January 03 where he underwent right carotid endarterectomy with patch angioplasty. Postoperatively, he is remained neurologically intact. No phonation or swallowing difficulties. Low ANASTASIIA drain output. ANASTASIIA drain was removed this morning, POD #1. Incision is clean and dry. Neurologically, he is intact. Normal phonation. Tongue midline with protrusion. He will be discharged home today in stable condition with limited activity to involve weight lifting restrictions for 2 weeks. He will continue his normal home medications. I will add aspirin 81 mg daily. He should also be initiated on cholesterol lowering agents. I will leave this to the discretion of his primary care provider, Dr. Ceja. At the time of discharge, he has had stable condition. Physical Exam Const: COMMON NORMALS: patient oriented x3 Neck/C-Spine: COMMON NORMALS: full ROM and no lymphadenopathy OTHER: Right neck incision is clean and dry. No substantial swelling. Resp: COMMON NORMALS: normal respiratory effort, No retractions, No use of accessory muscles and clear to auscultation bilaterally EFFORT & INSPECTION: Yes able to speak in complete sentences and Yes symmetric chest movement AUSCULTATION: clear to auscultation bilaterally Cardio: COMMON NORMALS: regular rate, regular rhythm and No gallops present (Cardio) RATE: regular rate RHYTHM: regular rhythm PERIPHERAL PULSES: radial pulses present positive bilateral 2+ Neuro: COMMON NORMALS: patient oriented x3, no focal motor deficits and no sensory deficits noted Urinary Catheter Management^: Haq: Cath Placed During This Visit: yes Reason for Continuing Indwelling Catheter: Accurate Measurement of Urinary Output in Critically Ill Patients Urinary Catheter Date of Insertion: 01/03/21 Urinary Catheter Time of Insertion: 07:20 Discharge Data Data Completed and Pending: Completed Studies During Hospitalization Category Date Time Status XR chest 1V buffy ble [id number] Routine Exams 01/03/21 22:06 Completed Pending at discharge Category Date Time Status Basic Metabolic P martina Routine Lab 12/22/20 12:45 Uncollected CBC Auto Diff [Co mplete Blood Count w/Auto] Routine Lab 12/22/20 12:06 Uncollected PRBC [Leukocyte R educed RBC] Routin e Lab 12/28/20 09:48 Results PT [Prothrombin T brit INR] Routine Lab 12/28/20 06:00 Uncollected Type and Screen - Cardiac Routine Lab 12/28/20 09:48 Results Type and Screen R outine Lab 12/22/20 12:45 Uncollected Urinalysis Routin e Lab 12/22/20 12:45 Uncollected Pathology: Surgic al [PTH] Routine Pth 01/03/21 08:36 Received Labs from last 24 hours 12/28/20 09:48 Blood Type B Positive Rho(D) Type Positive / 4+ Antibody Screen Negative Crossmatch See Detail Vitals: Last Vital Signs Temp 97.8 F 01/04/21 04:00 Pulse 72 01/04/21 06:00 Resp 16 01/04/21 05:50 BP 101/70 01/04/21 05:50 Pulse Ox 92 01/04/21 05:35 Discharge Plan Discharge Patient Disposition: Home Condition: Stable Prescriptions: New hydrocodone-acetaminophen 5-325 mg Tablet 1 tab PO Q6H PRN (Reason: Moderate Pain) Qty: 15 RF: 0 aspirin [Adult Low Dose Aspirin] 81 mg tablet,delayed release (DR/EC) 81 mg PO DAILY Qty: 100 RF: 5 Continued Lasix 20 mg tablet 20 mg PO DAILY Qty: 90 RF: 2 potassium chloride 10 mEq capsule, extended release 10 meq PO DAILY Qty: 90 RF: 2 metoprolol succinate 100 mg tablet extended release 24 hr 100 mg PO DAILY@07 RF: 0 nifedipine 60 mg tablet extended release 24hr 60 mg PO DAILY RF: 0 Discontinued levofloxacin 500 mg tablet 500 mg PO DAILY Qty: 7 RF: 0 Discharge Orders: Discharge Order (Routine); Ordered 01/04/21 Ordered By: Craig Baugh Referrals: Craig Baugh MD [Physician] - 1 week Discharge Diet: Usual diet Discharge Activity: Limit activity as instructed Patient Instructions: Opioid Safety Activity Restrictions/Additional Instructions: No heavy lifting x2 weeks. May remove bandage tomorrow May begin daily showers on Report any difficulty with swallowing, increased neck swelling, fever, redness, drainage, or increasing pain from incision. For any increasing arm or leg weakness or speech difficulties. Discharge Attestations Time Spent in Discharge Care*: less than 30 min Specific Discharge Activities: educating patient, documenting/other paperwork and evaluating patient/reviewing data Status at Discharge: Cognitive status at discharge: cognitively intact , Behavioral status at discharge: cooperative , Overall status at discharge: patient is progressing back to baseline Quality Metrics Clinical Quality Measures During this hospital stay, did patient experience: None Coding Level of Care Code Acute Chg FW DC note Diagnoses S/P carotid endarterectomy Z98.890
--- NOTE | 2021-01-04 06:34 | PC.NURSE ---
Shift Summary Patient has had an uneventful shift. Only one report of pain early on in the evening, pain medication given per patient request. Patient is alert and oriented x4. Right forearm IV is saline locked and left forearm IV has LR infusing at [address] Baugh came by this morning and removed the right neck ANASTASIIA drain. The ANASTASIIA drain had 15 mls of dark liquid out. The young catheter had 800 mls of clear dark yellow urine out overnight. Patient is on room air at this time.
[2021-01-04] MEDS: aspirin 81 mg Chew Tablet PO (07:38)
[2021-01-04] MEDS: FUROsemide 20 mg Tablet PO (07:39)
[2021-01-04] MEDS: NIFEdipine ER (24 hr) 30 mg Tablet 60 MG PO (07:39)
[2021-01-04] MEDS: potassium chloride ER 10 mEq Tablet PO (07:39)
[2021-01-04] MEDS: ceFAZolin 1,000 MG in sodium chloride 0.9% (plus) 50 ML 100 MG IV (07:39)
[2021-01-04] MEDS: pantoprazole DR 40 mg Tablet PO (07:39)
--- NOTE | 2021-01-04 07:59 | PC.NURSE ---
Patient requested morning medications early.
--- NOTE | 2021-01-04 08:00 | PC.NURSE ---
Haq removed at 0800. Tolerated well
--- NOTE | 2021-01-04 11:34 | PC.NURSE ---
Patient was discharged at 1100 via wheelchair. All belongings were with patient. Patient ambulated to crew car driver side of vehicle. Tolerated well.
== END 2021-01-04 11:00 | disposition home or self-care (01) | DRG 38 ==
LOC: ICU 09:56
PROVIDERS: Admitting Provider Thoracic Surgery (Cardiothoracic Vascular Surgery); PCP Family Medicine; Visit Provider Thoracic Surgery (Cardiothoracic Vascular Surgery)
PROC: 03CK0ZZ Extirpation of Matter from Right Internal Carotid Artery, Open Approach (ICD-10-PCS; CPT 35301; principal; 2021-01-03 07:00)
DX: I65.21 Occlusion and stenosis of right carotid artery (principal); N13.8 Other obstructive and reflux uropathy; F10.10 Alcohol abuse, uncomplicated; M17.11 Unilateral primary osteoarthritis, right knee; I10 Essential (primary) hypertension; N40.1 Benign prostatic hyperplasia with lower urinary tract symptoms; R97.20 Elevated prostate specific antigen [PSA]; E78.2 Mixed hyperlipidemia; R40.0 Somnolence; Z96.641 Presence of right artificial hip joint; Z98.84 Bariatric surgery status
CPT/HCPCS: 36415; 71045; 80048; 81001; 85025; 85610; 86850; 86900; 86920; 88304; 93005; J0690; J1170; J1644; J2250; J2370; J2704; J2720; J3010; J3370; J3490; J7030

== ENCOUNTER 2021-03-04 12:47 | Outpatient (CLI) | payer MEDICARE, SELFPAY ==
--- NOTE | 2021-03-04 13:30 | USCV_ITS ---
Antony Ethan Age: 65 Gender: M : 1955 Exam Date: 03/04/2021 13:43 Ordering Phys: Craig Baugh MD (Andy) ([email or web address] [place]) Technologist: Chinyere Williamson [place] [facility] [place]ication: OCLLUSION AND STENOSIS Risk Factors: Previous Vascular Surgery: Right Brachial BP: / Left Brachial BP: / Right Left Velocity (cm/s) Spectral Plaque Velocity (cm/s) Spectral Plaque Syst/Diast Broadening Syst/Diast Broadening 48.60/ 11.40 Prox CCA 109.40/ 27.60 31.70/ 9.10 Mid CCA 95.10 / 27.60 24.70/ 9.10 Distal CCA 70.60 / 21.50 / Prox ICA 52.60 / 15.70 / Mid ICA 94.30 / 25.70 / Distal ICA 73.80 / 26.60 140.10 ECA 80.80 ICA/CCA 0.99 Antegrade Vertebral Antegrade 39.50/ 11.70 cm/s 64.30/ 21.40 cm/s Tri Subclavian Tri 118.3 110.4 0 0 FINDINGS Comparison:. CTA 09/20/20 New complete occlusion of the right ICA since 09/20/20. Dampened wave forms in the right CCA. Mild left carotid atherosclerosis. No stenosis on the left. Antegrade vertebral arteries. CONCLUSIONS Complete occlusion right ICA. New since 09/20/20. Left ICA stenosis < 50%. Discussed with Dr. Baugh. Dr. Akanksha Howard DO (Electronically Signed) Final Date: 04 March 2021 14:24 S
== END 2021-03-04 12:48 | disposition home or self-care (01) ==
LOC: RAD 12:50
PROVIDERS: PCP Family Medicine; Visit Provider Thoracic Surgery (Cardiothoracic Vascular Surgery)
DX: I65.23 Occlusion and stenosis of bilateral carotid arteries (principal)
CPT/HCPCS: 93880

== ENCOUNTER 2021-04-19 08:30 | Outpatient (CLI) | payer MEDICARE, SELFPAY ==
[2021-04-19 08:45] VITALS: BP 145/90; PULSE 83; RESP 16; TEMP 36.5; O2SAT 99; BMI 29.9
[2021-04-19 10:10] VITALS: BP 119/83; BP 125/89; PULSE 81; RESP 16; TEMP 36.9; O2SAT 96
== END 2021-04-19 08:31 | disposition home or self-care (01) ==
LOC: OPS 08:33
PROVIDERS: PCP Family Medicine; Visit Provider Nurse Practitioner Family
DX: U07.1 COVID-19 (principal)
CPT/HCPCS: 96365

== ENCOUNTER → 2021-07-05 08:19 | Outpatient (BNVA) | payer MEDICARE, SELFPAY | PROVIDERS: PCP Family Medicine; Visit Provider Urology | DX: R97.20 Elevated prostate specific antigen [PSA] (principal); N40.1 Benign prostatic hyperplasia with lower urinary tract symptoms | CPT/HCPCS: 84153 ==

== ENCOUNTER 2021-09-12 15:29 | Emergency (ER) | payer MEDICARE, SELFPAY ==
[2021-09-12 15:52] VITALS: BMI 32.1
[2021-09-12 17:03] VITALS: PULSE 76; RESP 14; O2SAT 97
--- NOTE | 2021-09-12 17:06 | XRR_ITS ---
PROCEDURE INFORMATION: Exam: XR Right Tibia and Fibula Exam date and time: 09/12/2021 5:06 PM Age: 66 years old Clinical indication: Injury or trauma; Other: Dog attack; Crushing; Lower leg; Right; Additional info: Crush wounds TECHNIQUE: Imaging protocol: XR Right tibia and fibula. Views: 2 views. COMPARISON: No relevant prior studies available. FINDINGS: Bones/joints: There is a suggestion of some focal lucencies in the mid and distal shaft of the fibula with endosteal scalloping. These are non-specific and difficult to evaluate due to the overlying soft tissue injuries. There are advanced degenerative changes in the right knee. Soft tissues: There are soft tissue wounds in the posterolateral aspect of the proximal and distal right calf. XR/XR tibia fibula RT 2V [id number] IMPRESSION: 1. Soft tissue injuries. 2. No acute fracture. 3. Question of possible lucent bone lesions in the midshaft of the fibula. Follow-up suggested. 4. No fracture is identified.
--- NOTE | 2021-09-12 17:17 | ED_ITS ---
HPI - Animal Bite General: Chief Complaint: Animal Bite Stated Complaint: DOG BITE Time Seen by Provider: 09/12/21 16:27 [facility] ED PFSH: Medical History Abnormal nuclear stress test Alcohol abuse Benign essential hypertension with target blood pressure below 140/90 BPH loc w urin obs/LUTS BPH loc w urin obs/LUTS Elevated PSA Hypertension Intermittent palpitations Intestinal malrotation Mixed hyperlipidemia Premature ventricular contractions Somnolence, daytime Urinary hesitancy Surgical History History of bariatric surgery Gastric sleeve ([place]) History of left knee surgery History of right hip replacement History of tonsillectomy and adenoidectomy History of ventral hernia repair x 2, supraumbilical, second time with mesh S/P carotid endarterectomy Family History Sister Clotting disorder Father CAD (coronary artery disease) Grandmother Dementia Mother Lung disease Social History Alcohol intake: current Alcohol intake frequency: 3 or more drinks per day Counseling given: Yes Household members: spouse Housing: House Course Vital Signs: Vital signs: Vital Signs Pulse Rate 76 09/12/21 17:03 Respiratory Rate 14 09/12/21 17:03 Blood Pressure 112/63 09/12/21 17:36 Pulse Oximetry 97 09/12/21 17:03 MDM - Animal Bite Lab Data Radiology Impressions Tibia/Fibula X-Ray 09/12/21 17:06 IMPRESSION: 1. Soft tissue injuries. 2. No acute fracture. 3. Question of possible lucent bone lesions in the midshaft of the fibula. Follow-up suggested. 4. No fracture is identified. Discharge Plan Discharge Condition: Stable Prescriptions: No Action atorvastatin 20 mg tablet 20 mg PO DAILY Qty: 90 3RF metoprolol succinate 100 mg tablet extended release 24 hr 100 mg PO DAILY@07 Qty: 90 3RF tamsulosin 0.4 mg capsule 0.4 mg PO BID Qty: 180 3RF nifedipine 60 mg tablet extended release 24hr 60 mg PO DAILY 0RF Adult Low Dose Aspirin 81 mg tablet,delayed release (DR/EC) 81 mg PO DAILY Qty: 100 5RF Referrals: Mallika Ceja MD [Primary Care Provider] - Coding Level of Care Code ED Real Estate Sales Agent for Wendyg Leland
[2021-09-12 17:36] VITALS: BP 112/63
[2021-09-12 18:23] VITALS: RESP 16
[2021-09-12] MEDS: morphine 4 mg/mL SDV 1 mL IM (18:23)
[2021-09-12] MEDS: tetanus-dipt-pertussis 0.5 mL SDV IM (18:24)
[2021-09-12] MEDS: sodium bicarbonate 8.4% 1 mEq/mL 50mL Syr 50 MEQ IVP (18:46)
[2021-09-12] MEDS: lidocaine 1% INJ 20 mL INJECTION (18:46)
--- NOTE | 2021-09-12 18:58 | W.ED.GENADLT ---
HPI - General Adult General: Chief complaint: Animal Bite Stated complaint: DOG BITE Time Seen by Provider: 09/12/21 16:27 History of Present Illness: Patient is a 66-year-old male with no significant past medical history presents emergency after he was bitten by multiple dogs while trying to separate dogs from a fight. Patient tells me this happened around 4:30 PM. Patient does not remember when his last tetanus was. Patient reported mild bleeding shortly after the attacks. Patient denies any other injuries other than the right lower extremity. Patient denies any chest pain, shortness breath, palpitation lightheadedness, abdominal pain, nausea/vomiting, diarrhea, melena hematochezia or urinary complaints Onset: 4 hrs ago Duration:4 hrs Location:home Severity:severe Associated symptoms: Deny chest pain, dyspnea, nausea, rash, palpitations or vomiting Review of Systems Const: Denies: fever(s) or chills Eyes: Denies: change in vision ENMT: Denies: mouth pain Card: Denies: chest pain or palpitations Resp: Denies: dyspnea or non-productive cough GI: Denies: abdominal pain, nausea, vomiting or diarrhea : Denies: dysuria Musc: Reports: extremity pain and other (+RLE dog bites) Skin/Breast: Denies: rash or new lesions Neuro: Denies: weakness in extremities Psych: Reports: other (Normal mood) Panfilo/Lymph: Denies: easy bruising PFSH ED PFSH: Medical History Abnormal nuclear stress test Alcohol abuse Benign essential hypertension with target blood pressure below 140/90 BPH loc w urin obs/LUTS BPH loc w urin obs/LUTS Elevated PSA Hypertension Intermittent palpitations Intestinal malrotation Mixed hyperlipidemia Premature ventricular contractions Somnolence, daytime Urinary hesitancy Surgical History History of bariatric surgery Gastric sleeve ([place]) History of left knee surgery History of right hip replacement History of tonsillectomy and adenoidectomy History of ventral hernia repair x 2, supraumbilical, second time with mesh S/P carotid endarterectomy Family History Sister Clotting disorder Father CAD (coronary artery disease) Grandmother Dementia Mother Lung disease Social History Alcohol intake: current Alcohol intake frequency: 3 or more drinks per day Counseling given: Yes Household members: spouse Housing: House Physical Exam Const: COMMON NORMALS: alert HENMT: COMMON NORMALS: atraumatic HEAD & SCALP: atraumatic MOUTH: moist mucous membranes not abnormal Eye: COMMON NORMALS: EOMs intact bilaterally and conjunctivae normal CONJUNCTIVA: Yes conjunctivae normal Neck/C-Spine: COMMON NORMALS: full ROM and supple Resp: COMMON NORMALS: normal respiratory effort and clear to auscultation bilaterally AUSCULTATION: clear to auscultation bilaterally Cardio: COMMON NORMALS: regular rate RATE: regular rate GI: COMMON NORMALS: Soft to palpation and non-tender PALPATION: Yes Soft to palpation Extremity: COMMON NORMALS: full ROM NARRATIVE EXTREMITY EXAM: + Multiple avulsion wound over the right gastroc, 2+ DP/PT pulses, cap refill less than 3 seconds in the lower extremity, sensation and range of motion intact in the right lower extremity Neuro: SENSORIUM/ORIENTATION: Yes alert MOTOR EXAM: No Abnormal motor strength present and Other motor observations present (no focal motor deficits) Psych: COMMON NORMALS: speech normal SPEECH: Yes normal speech MOOD & AFFECT: Yes euthymic mood Skin: NARRATIVE SKIN EXAM: Multiple avulsion wound with subcutaneous and muscle involvements in the R hind leg Procedures Laceration Laceration 1: Site: lower extremity Side (If applicable): right Size (cm): 10 Description: flap, irregular and contaminated Depth: involves muscle layer Local Anesthetic: lidocaine 1%, with epi and with bicarb Amount of anesthesia used (mL): 5 Pre-repair: wound explored and irrigated extensively Skin layer closed with: vicryl Size (cm): other (1-0) Number of sutures: 1 Technique: running Laceration 2: Site: lower extremity Side (If applicable): right Size (cm): 6 Description: flap, irregular and contaminated Depth: simple, single layer Local Anesthetic: lidocaine 1%, with epi and with bicarb Amount of anesthesia used (mL): 5 Pre-repair: wound explored, irrigated extensively and deep structures intact Skin layer closed with: nylon Size (cm): other (1-0) Number of sutures: 1 Technique: running Laceration 3: Site: lower extremity Side (If applicable): right Size (cm): 5 Description: irregular and contaminated Depth: simple, single layer Local Anesthetic: lidocaine 1%, with epi and with bicarb Amount of anesthesia used (mL): 3 Pre-repair: wound explored, irrigated extensively and deep structures intact Skin layer closed with: vicryl Size (cm): other (1-0) Technique: running Course Vital Signs: Vital signs: Vital Signs Pulse Rate 79 09/12/21 19:13 Respiratory Rate 16 09/12/21 19:13 Blood Pressure 112/63 09/12/21 17:36 Pulse Oximetry 97 09/12/21 19:13 MDM - General Adult Medical Decision Making 66-year-old male presents emergency room with concerns for dog bites. On exam, patient has 3 avulsion wounds. Neurovascular exam of the affected lower extremity intact. Case was discussed with Dr. Harvey who recommended loose closure with mandy after copious irrigation. Dr. Harvey does not think patient needs operative washout this time. The three wounds were closed 1-0 vicryl sutures loosely. Please refer to the procedure note for loose closure. He received Unasyn in the emergency room. Patient requests for rabies as he is concerned about the behaviors of the dogs. He is given rabies IVIG and immunoglubin day 1. I have given patient follow up with our telephonic case manager to be seen by our wound care clinic for management of significant avulsed bite wounds. Patient aware of a call from our telephonic case manager to schedule for appointment(s) and verbalizes understanding of the importance of following up. Rx augmentin and clindamycin for prophylaxis of the wounds Disposition: Discharge. Patient counseled regarding diagnostic impression, treatment plan. Patient given ED strict return precautions to return for continuation, worsening, or development of new symptoms. Instructed to f/u w/ PCP regarding symptoms today. Patient verbalized understanding. Patient aware that suture(s) need to be removed in 10 to 14 days. Patient also aware that he needs to come back in 1 week for repeat rabies shot #2 Lab Data Radiology Impressions Tibia/Fibula X-Ray 09/12/21 17:06 IMPRESSION: 1. Soft tissue injuries. 2. No acute fracture. 3. Question of possible lucent bone lesions in the midshaft of the fibula. Follow-up suggested. 4. No fracture is identified. Discharge Plan Discharge Patient Disposition: Home Clinical Impression: Dog bite, Open wound Condition: Stable Prescriptions: New clindamycin HCl 300 mg capsule 300 mg PO TID 10 Days Qty: 30 0RF Augmentin 875-125 mg tablet 1 tab PO BID 14 Days Qty: 28 0RF Florastor 250 mg capsule 250 mg PO Q12H 30 Days Qty: 60 0RF acetaminophen 500 mg tablet 500 mg PO Q6H PRN (Reason: pain) 10 Days Qty: 40 0RF No Action atorvastatin 20 mg tablet 20 mg PO DAILY Qty: 90 3RF metoprolol succinate 100 mg tablet extended release 24 hr 100 mg PO DAILY@07 Qty: 90 3RF tamsulosin 0.4 mg capsule 0.4 mg PO BID Qty: 180 3RF nifedipine 60 mg tablet extended release 24hr 60 mg PO DAILY 0RF Adult Low Dose Aspirin 81 mg tablet,delayed release (DR/EC) 81 mg PO DAILY Qty: 100 5RF Discharge Orders: Discharge ED (Routine); Ordered 09/12/21 Ordered By: Gelacio Harris Referrals: Mallika Ceja MD [Primary Care Provider] - Discharge Diet: Advance as tolerated Discharge Activity: Increase activity as tolerated Patient Instructions: Animal Bite (ED) Activity Restrictions/Additional Instructions: Our telephonic case manager will have you follow-up with the wound clinic in the next few days. You would be expected to have a phone call with our telephonic case manager who will put you on the schedule. You can expect a call from us in the next 2-3 days. Please follow up with Dr. Ceja in the next 3 days for reassessment Please take your antibiotics as instructed by mouth. Watch out for signs of skin changes/redness, mouth redeness or swelling, nausea/vomiting, diarrhea, blood in the urine or any new or concering complaints. Come back to the emergency room the worsening redness, drainage, signs of infection, or new concerning complaints. Sutures need to come back in 14 days Coding Level of Care Code ED Education Specialist for Holly Ha Exam Comprehensive
[2021-09-12] MEDS: ampicillin-sulbactam 3 GM in sodium chloride 0.9% (plus) 50 ML IV (19:05)
[2021-09-12 19:13] VITALS: PULSE 79; RESP 16; O2SAT 97
[2021-09-12] MEDS: bacitracin ointment Pkt 1 EACH TOPICAL (21:21)
[2021-09-12] MEDS: rabies vaccine 2.5 unit SDV IM (21:33)
--- NOTE | 2021-09-13 10:10 | DCPLANNER ---
Addendum entered by Liza Hill 09/23/21 13:48: Patient had a follow up appointment scheduled for 09.16.21 with Wound Care - patient did attend appointment. Addendum entered by Liza Hill 09/13/21 13:32: survey project manager was able to reach patient and give patient the appointment information. Original Note: survey project manager had message to schedule a follow up appointment for patient with Wound Care. survey project manager called the Wound Care clinic, spoke with Og, gave clinic patients information. A follow up appointment was scheduled for Thursday, September 16, [address] at 8:[address] Zambrano. survey project manager called phone number [phone], phone was busy unable to speak with patient or leave a voicemail. survey project manager called phone number [phone], left a voicemail for patient to return porter sample case phone call. survey project manager called phone number [phone], person that answered the phone does not know patient. survey project manager unable to contact patient at this time.
== END 2021-09-12 21:52 | disposition home or self-care (01) ==
PROVIDERS: Emergency Provider Emergency Medicine; PCP Family Medicine
DX: S81.851A Open bite, right lower leg, initial encounter (principal); W54.0XXA Bitten by dog, initial encounter; Z79.82 Long term (current) use of aspirin; I10 Essential (primary) hypertension; E78.2 Mixed hyperlipidemia; Z23 Encounter for immunization; Z29.14 Encounter for prophylactic rabies immune globulin; Z20.3 Contact with and (suspected) exposure to rabies
CPT/HCPCS: 12006; 73590; 90375; 90471; 90472; 90675; 90715; 96372; 96374; 96375; 99284; J0295; J2270

== ENCOUNTER 2021-09-16 08:05 | Outpatient (CLI) | payer MEDICARE, SELFPAY | END 2021-09-16 08:06 | disposition home or self-care (01) | LOC: WOUND 08:06 | PROVIDERS: PCP Family Medicine; Visit Provider Thoracic Surgery (Cardiothoracic Vascular Surgery) | DX: S81.851A Open bite, right lower leg, initial encounter (principal); W54.0XXA Bitten by dog, initial encounter | CPT/HCPCS: 99213 ==

== ENCOUNTER 2021-09-28 10:02 | Outpatient (CLI) | payer MEDICARE, SELFPAY | END 2021-09-28 10:03 | disposition home or self-care (01) | LOC: WOUND 10:03 | PROVIDERS: Visit Provider Thoracic Surgery (Cardiothoracic Vascular Surgery) | DX: I96 Gangrene, not elsewhere classified (principal); S81.851D Open bite, right lower leg, subsequent encounter | CPT/HCPCS: 11042; 11045 ==

== ENCOUNTER 2021-10-05 09:30 | Outpatient (CLI) | payer MEDICARE, SELFPAY | END 2021-10-05 09:31 | disposition home or self-care (01) | LOC: WOUND 09:31 | PROVIDERS: Visit Provider Thoracic Surgery (Cardiothoracic Vascular Surgery) | DX: I96 Gangrene, not elsewhere classified (principal); S81.851S Open bite, right lower leg, sequela; W54.0XXS Bitten by dog, sequela | CPT/HCPCS: 11042; 11045 ==

== ENCOUNTER 2021-10-12 08:28 | Outpatient (CLI) | payer MEDICARE, SELFPAY | END 2021-10-12 08:29 | disposition home or self-care (01) | LOC: WOUND 08:29 | PROVIDERS: Visit Provider Thoracic Surgery (Cardiothoracic Vascular Surgery) | DX: I96 Gangrene, not elsewhere classified (principal); S81.851D Open bite, right lower leg, subsequent encounter; W54.0XXD Bitten by dog, subsequent encounter | CPT/HCPCS: 11042; 11045 ==

== ENCOUNTER 2021-10-14 07:57 | Outpatient (CLI) | payer MEDICARE, SELFPAY | END 2021-10-14 07:58 | disposition home or self-care (01) | LOC: WOUND 07:58 | PROVIDERS: Visit Provider Nurse Practitioner Family | DX: S81.851S Open bite, right lower leg, sequela (principal); X58.XXXS Exposure to other specified factors, sequela; L97.819 Non-pressure chronic ulcer of other part of right lower leg with unspecified severity | CPT/HCPCS: 99214; G0463 ==

== ENCOUNTER → 2021-10-19 08:02 | Outpatient (BNVA) | payer MEDICARE, SELFPAY | PROVIDERS: Visit Provider Thoracic Surgery (Cardiothoracic Vascular Surgery) | DX: L97.822 Non-pressure chronic ulcer of other part of left lower leg with fat layer exposed (principal); L97.812 Non-pressure chronic ulcer of other part of right lower leg with fat layer exposed; I96 Gangrene, not elsewhere classified | CPT/HCPCS: 11042; 11045 ==

== ENCOUNTER → 2021-10-21 07:58 | Outpatient (BNVA) | payer MEDICARE, SELFPAY | PROVIDERS: Visit Provider Nurse Practitioner Family | DX: S81.851S Open bite, right lower leg, sequela (principal); X58.XXXS Exposure to other specified factors, sequela | CPT/HCPCS: 99214 ==

== ENCOUNTER → 2021-10-26 07:54 | Outpatient (BNVA) | payer MEDICARE, SELFPAY | PROVIDERS: Visit Provider Thoracic Surgery (Cardiothoracic Vascular Surgery) | DX: I96 Gangrene, not elsewhere classified (principal); L97.812 Non-pressure chronic ulcer of other part of right lower leg with fat layer exposed | CPT/HCPCS: 97597 ==

== ENCOUNTER → 2021-11-07 09:31 | Outpatient (BNVA) | payer MEDICARE, SELFPAY | PROVIDERS: Visit Provider Thoracic Surgery (Cardiothoracic Vascular Surgery) | DX: I96 Gangrene, not elsewhere classified (principal); L97.812 Non-pressure chronic ulcer of other part of right lower leg with fat layer exposed | CPT/HCPCS: 97597 ==

== ENCOUNTER → 2021-11-14 09:58 | Outpatient (BNVA) | payer MEDICARE, SELFPAY | PROVIDERS: Visit Provider Thoracic Surgery (Cardiothoracic Vascular Surgery) | DX: I96 Gangrene, not elsewhere classified (principal); L97.812 Non-pressure chronic ulcer of other part of right lower leg with fat layer exposed | CPT/HCPCS: 97597 ==

== ENCOUNTER → 2021-11-21 09:38 | Outpatient (BNVA) | payer MEDICARE, SELFPAY | PROVIDERS: Visit Provider Thoracic Surgery (Cardiothoracic Vascular Surgery) | DX: Z09 Encounter for follow-up examination after completed treatment for conditions other than malignant neoplasm (principal); L97.812 Non-pressure chronic ulcer of other part of right lower leg with fat layer exposed; I96 Gangrene, not elsewhere classified | CPT/HCPCS: 97597 ==

== ENCOUNTER → 2021-11-28 10:05 | Outpatient (BNVA) | payer MEDICARE, SELFPAY | PROVIDERS: Visit Provider Thoracic Surgery (Cardiothoracic Vascular Surgery) | DX: L97.812 Non-pressure chronic ulcer of other part of right lower leg with fat layer exposed (principal); I96 Gangrene, not elsewhere classified | CPT/HCPCS: 97597 ==

== ENCOUNTER → 2021-12-05 09:17 | Outpatient (BNVA) | payer MEDICARE, SELFPAY | PROVIDERS: Visit Provider Thoracic Surgery (Cardiothoracic Vascular Surgery) | DX: L97.812 Non-pressure chronic ulcer of other part of right lower leg with fat layer exposed (principal); I96 Gangrene, not elsewhere classified | CPT/HCPCS: 97597 ==

== ENCOUNTER → 2021-12-12 09:11 | Outpatient (BNVA) | payer MEDICARE, SELFPAY | PROVIDERS: Visit Provider Thoracic Surgery (Cardiothoracic Vascular Surgery) | DX: Z09 Encounter for follow-up examination after completed treatment for conditions other than malignant neoplasm (principal) | CPT/HCPCS: 99212 ==

== ENCOUNTER → 2021-12-16 07:54 | Outpatient (BNVA) | payer MEDICARE, SELFPAY | PROVIDERS: PCP Family Medicine; Visit Provider Nurse Practitioner Family | DX: N40.1 Benign prostatic hyperplasia with lower urinary tract symptoms (principal); R30.0 Dysuria | CPT/HCPCS: 51798; 99213 ==

== ENCOUNTER → 2022-01-25 09:35 | Outpatient (BNVA) | payer MEDICARE, SELFPAY | PROVIDERS: PCP Family Medicine; Visit Provider Nurse Practitioner Family | DX: I48.91 Unspecified atrial fibrillation (principal); I11.0 Hypertensive heart disease with heart failure; E78.2 Mixed hyperlipidemia; I50.22 Chronic systolic (congestive) heart failure; I65.29 Occlusion and stenosis of unspecified carotid artery; Z98.890 Other specified postprocedural states; N40.1 Benign prostatic hyperplasia with lower urinary tract symptoms; R30.0 Dysuria; R97.20 Elevated prostate specific antigen [PSA] | CPT/HCPCS: 51798; 81003; 99213; 99214 ==

== ENCOUNTER → 2022-03-28 09:28 | Outpatient (BNVA) | payer MEDICARE, SELFPAY | PROVIDERS: PCP Family Medicine; Visit Provider Urology | DX: R97.20 Elevated prostate specific antigen [PSA] (principal); N40.1 Benign prostatic hyperplasia with lower urinary tract symptoms | CPT/HCPCS: 51798; 99213 ==

== ENCOUNTER → 2022-04-19 07:30 | Outpatient (BNVA) | payer MEDICARE, SELFPAY | PROVIDERS: PCP Family Medicine; Visit Provider Orthopaedic Surgery | DX: M17.11 Unilateral primary osteoarthritis, right knee (principal) | CPT/HCPCS: 99203 ==

== ENCOUNTER 2022-05-08 12:47 | Outpatient (CLI) | payer MEDICARE, SELFPAY ==
--- NOTE | 2022-05-08 13:00 | USCV_ITS ---
Ethan Hardy Age: 67 Gender: M : 1955 Exam Date: 05/08/2022 13:39 Ordering Phys: Marian Tovar MD ([email or web address]) Technologist: Kaylee Cannon Exam Location: [facility] [place] Indication: Shortness of breath, chest pain, congestive heart failure BP: 128 / 88 HR: 98 Rhythm: Other Technical Quality: Adequate MEASUREMENTS (Male / Female) Normal Values 2D ECHO LV Diastolic Diameter PLAX 5.6 cm 4.2 - 5.9 / 3.9 - 5.3 cm LV Systolic Diameter PLAX 4.7 cm IVS Diastolic Thickness 0.9 cm 0.6 - 1.0 / 0.6 - 0.9 cm IVS Systolic Thickness 1.3 cm LVPW Diastolic Thickness 1.0 cm 0.6 - 1.0 / 0.6 - 0.9 cm LVPW Systolic Thickness 1.6 cm LVOT Diameter 2.2 cm LV Ejection Fraction 2D Teich 34.4 % LV Ejection Fraction MOD 2C 60.6 % LV Ejection Fraction 2C AL 59.1 % LA Diameter 3.8 cm LA Width 4.3 cm LA Height 6.4 cm RA Width 4.6 cm RA Height 5.5 cm Aorta at Sinotubular Diameter 3.2 cm IVC Diameter 2.6 cm M-MODE MV E Point Septal Separation 0.6 cm DOPPLER AV Peak Velocity 104.0 cm/s LVOT Peak Velocity 84.0 cm/s AV Area Cont Eq vti 3.3 cm squared AV Area Cont Eq pk 3.0 cm squared MV Peak Velocity 120.0 cm/s MV Area PHT 4.6 cm squared Mitral E to A Ratio 4.8 MV E' Velocity 54.0 cm/s Mitral E to MV E' Ratio 7.9 Mitral E to LV E' Lateral Ratio 8.6 Mitral E to LV E' Septal Ratio 7.3 TR Peak Velocity 231.3 cm/s TR Peak Gradient 21.4 mmHg Right Atrial Pressure 3.0 mmHg Pulmonary Artery Systolic Pressu 24.4 mmHg PV Peak Velocity 68.0 cm/s RV Acceleration Time 0.1 s RV Ejection Time 0.3 s RV AcT/ET 0.4 FINDINGS Left Ventricle Normal left ventricular size, systolic function and wall thickness, with no regional wall motion abnormalities. Left ventricular ejection fraction is estimated at 55 %. Right Ventricle Normal right ventricular size and systolic function. Right ventricular systolic pressure 28 mmHg. Right Atrium Normal right atrial size. Left Atrium Mildly increased left atrial size. Mitral Valve Structurally normal mitral valve. No mitral valve stenosis. Trace mitral valve regurgitation. Aortic Valve Structurally normal trileaflet aortic valve. No aortic valve stenosis. No aortic valve regurgitation. Tricuspid Valve Structurally normal tricuspid valve. No tricuspid valve stenosis. Trace tricuspid valve regurgitation. Pulmonic Valve Structurally normal pulmonic valve. No pulmonary valve stenosis. Trace pulmonary valve regurgitation. Pericardium No pericardial effusion. Aorta Normal size aortic root and proximal ascending aorta. IVC Normal IVC dimension with >50% respiratory change of the inferior vena cava. CONCLUSIONS 1. Normal left ventricular size, systolic function and wall thickness, with no regional wall motion abnormalities. Left ventricular ejection fraction is estimated at 55 %. 2. Normal right ventricular size and systolic function. 3. Pulmonary artery pressure estimated at 28 mmHg. 4. When compared to prior study dated 09/21/2020, left ventricular systolic function seems to have improved from 40%. Marian Tovar MD (Electronically Signed) Final Date: 12 May 2022 12:18 S
== END 2022-05-08 12:48 | disposition home or self-care (01) ==
LOC: RAD 12:54
PROVIDERS: PCP Family Medicine; Visit Provider Internal Medicine Cardiovascular Disease
DX: I50.9 Heart failure, unspecified (principal); R06.02 Shortness of breath; R07.9 Chest pain, unspecified
CPT/HCPCS: 93306

== ENCOUNTER 2022-05-17 06:31 | Outpatient (CLI) | payer MEDICARE, SELFPAY ==
--- NOTE | 2022-05-17 07:15 | USCV_ITS ---
Antony Ethan Age: 67 Gender: M : 1955 Exam Date: 05/17/2022 07:12 Ordering Phys: Craig Baugh MD (Andy) ([email or web address] [email or web address]) Technologist: CT Exam Location: [facility] [place] Indication: Risk Factors: Previous Vascular Surgery: Right Brachial BP: / Left Brachial BP: / Right Left Velocity (cm/s) Spectral Plaque Velocity (cm/s) Spectral Plaque Syst/Diast Broadening Syst/Diast Broadening 59.50/ 14.30 Prox CCA 81.60 / 28.70 69.50/ 14.30 Mid CCA 70.70 / 24.10 44.10/ 12.10 Distal CCA 90.10 / 22.50 / Prox ICA 46.60 / 13.50 / Mid ICA 44.00 / 10.80 / Distal ICA 90.90 / 32.60 77.20 ECA 64.50 ICA/CCA 1.01 Vertebral 52.90/ 19.80 cm/s 47.40/ 14.00 cm/s Subclavian 47.40 60.60 FINDINGS comp 03/04/21 CONCLUSIONS Right ICA occlusion unchanged Left ICA stenosis <50%. Normal antegrade Doppler flow noted in the left vertebral artery. Normal antegrade Doppler flow noted in the right vertebral artery. Alex Choudhury MD (Electronically Signed) Final Date: 17 May 2022 10:07 S
== END 2022-05-17 06:32 | disposition home or self-care (01) ==
LOC: RAD 06:32
PROVIDERS: PCP Family Medicine; Visit Provider Thoracic Surgery (Cardiothoracic Vascular Surgery)
DX: I65.23 Occlusion and stenosis of bilateral carotid arteries (principal)
CPT/HCPCS: 93880

== ENCOUNTER 2022-05-24 06:39 | Outpatient (CLI) | payer MEDICARE, SELFPAY ==
--- NOTE | 2022-05-24 07:30 | CT_ITS ---
WS: [id number] CT RIGHT KNEE, NONCONTRAST EZEQUIEL TECHNIQUE: Noncontrast CT of the RIGHT knee to include the RIGHT hip and ankle with EZEQUIEL protocol CLINICAL INFORMATION: pre op planning COMPARISON: September 12, 2021 DLP: [id number] scans at [facility] use at least one of these dose optimization techniques: automated e xposure control; mA and/or kV adjustment per patient size (includes targeted exams where dose is matc hed to clinical indication); or iterative reconstruction. FINDINGS: Advanced tricompartmental arthritis RIGHT knee. Hypertrophic changes along the joint line. Narrowing of the medial and lateral joint compartments. Vascular calcification. Advanced degenerative narrowing at the patellofemoral articulation. Prominent hypertrophic change involving the distal femoral condy le at the patellofemoral articulation. Moderate suprapatellar effusion. RIGHT RACHEAL. Postoperative changes LEFT TKA. Intratrochanteric feliciano and screw fixation LEFT hip. CT/CT knee RT EZEQUIEL IMPRESSION: Images obtained for preoperative purposes.
== END 2022-05-24 06:40 | disposition home or self-care (01) ==
LOC: RAD 06:40
PROVIDERS: PCP Family Medicine; Visit Provider Orthopaedic Surgery
DX: Z01.818 Encounter for other preprocedural examination (principal)
CPT/HCPCS: 73700

== ENCOUNTER → 2022-06-07 08:40 | Outpatient (BNVA) | payer MEDICARE, SELFPAY | PROVIDERS: PCP Family Medicine; Visit Provider Orthopaedic Surgery | DX: M17.11 Unilateral primary osteoarthritis, right knee (principal) | CPT/HCPCS: 99213 ==

== ENCOUNTER 2022-07-14 09:52 | Emergency (ER) | payer MEDICARE, SELFPAY ==
[2022-07-14] VITALS (16 sets, daily range): BP systolic 89–111; BP diastolic 52–73; PULSE 74–94; RESP 11–25; TEMP 36.3; O2SAT 92–99; BMI 29.2
--- NOTE | 2022-07-14 10:51 | W.ED.DIZZY ---
HPI - Dizziness General: Chief Complaint: Dizziness Stated Complaint: Dizzy Time Seen by Provider: 07/14/22 10:31 History of Present Illness: HPI Narrative: 67-year-old male with a relevant history of gastric sleeve, former history of alcoholism among multiple other comorbidities who presents to the emergency department due to lightheadedness. Patient tells me for many months he has had yacking of clear thick material from his stomach that mostly occurred at night and in the morning. It seemed to also occur more if he ate. He reports that he has had no appetite for months. In fact, he says he has not had any solid food in about 2 weeks. He eats and drinks very little. He has never had any abdominal discomfort or heartburn with any of this. He has an appointment this coming Sunday to consider upper endoscopy. He has not had a fever, chest pain, back pain. He has very little stool output because he does not eat very much. He has no dysphagia or odynophagia. Nothing gets stuck in his esophagus. No black or bloody stools. No hemoptysis or hematemesis Associated symptoms: Reports malaise; Denies chest pain, chills, headache(s) or syncope Associated neuro symptoms: Deny numbness in extremities Review of Systems General: Reports: 10 or more systems reviewed and unremarkable except in HPI and below Const: Reports: fatigue and malaise; Denies: fever(s), chills or body aches Eyes: Denies: change in vision ENMT: Denies: throat pain Card: Denies: chest pain, edema or syncope Resp: Denies: dyspnea or productive cough GI: Denies: abdominal pain : Denies: flank pain, dysuria or urinary frequency Musc: Denies: neck pain, back pain, extremity pain or extremity swelling Skin/Breast: Denies: rash or erythema Neuro: Denies: headache(s), numbness in extremities or lack of coordination PFSH ED PFSH: Medical History Abnormal nuclear stress test Alcohol abuse Atrial fibrillation Benign essential hypertension with target blood pressure below 140/90 BPH loc w urin obs/LUTS BPH loc w urin obs/LUTS Elevated PSA Hypertension Intermittent palpitations Intestinal malrotation Mixed hyperlipidemia Premature ventricular contractions Somnolence, daytime Urinary hesitancy Surgical History History of bariatric surgery Gastric sleeve ([place]) History of left knee surgery History of right hip replacement History of tonsillectomy and adenoidectomy History of ventral hernia repair x 2, supraumbilical, second time with mesh S/P carotid endarterectomy Family History Sister Clotting disorder Father , at age 92 CAD (coronary artery disease) Grandmother Dementia Mother , at age 78 Lung disease Hip fracture Social History Smoking and tobacco status: never smoked Alcohol intake: current Alcohol intake frequency: 0-2 Drinks per Day Counseling given: Yes Housing: House Marital status: Current occupational status: retired History of recent travel: No Physical Exam Const: COMMON NORMALS: no limitations, alert and well nourished EXAM LIMITATIONS: no altered mental status HENMT: COMMON NORMALS: normocephalic, atraumatic and external ears normal HEAD & SCALP: normocephalic and atraumatic EXTERNAL EAR: Yes external ears normal MOUTH: no muffled voice Eye: COMMON NORMALS: EOMs intact bilaterally, conjunctivae normal and no scleral icterus CONJUNCTIVA: Yes conjunctivae normal Neck/C-Spine: COMMON NORMALS: no JVD GENERAL: Yes normal visual inspection and Yes trachea midline Resp: COMMON NORMALS: normal respiratory effort, No use of accessory muscles and clear to auscultation bilaterally AUSCULTATION: clear to auscultation bilaterally Cardio: COMMON NORMALS: no JVD RATE: tachycardic RHYTHM: abnormal rhythm PERIPHERAL PULSES: radial pulses not present GI: COMMON NORMALS: Soft to palpation and non-tender INSPECTION: Yes normal to inspection PALPATION: Yes Soft to palpation and No Guarding due to palpation present (GI) Extremity: COMMON NORMALS: normal to inspection Neuro: COMMON NORMALS: moves all extremities, no focal motor deficits and no sensory deficits noted SENSORIUM/ORIENTATION: Yes alert SPEECH: speech normal OTHER: Tremors noted in the hands Psych: COMMON NORMALS: mental status grossly normal, Normal thought process present, cooperative, normal affect and speech normal SPEECH: Yes normal speech THOUGHT PROCESS: Normal thought process present Skin: COMMON NORMALS: no rashes or lesions noted and no jaundice GENERAL SKIN EXAM: no rashes or lesions noted, dry skin and pallor Course Vital Signs: Vital signs: Vital Signs Temperature 97.4 F L 07/14/22 09:57 Pulse Rate 80 07/14/22 13:00 Respiratory Rate 24 H 07/14/22 13:15 Blood Pressure 98/60 07/14/22 13:15 Pulse Oximetry 93 07/14/22 13:15 Oxygen Delivery Me thod 07/14/22 09:57 MDM - Dizziness Medical Decision Making Patient presents with months of progressive vomiting of clear thick material. He has had no appetite but also no pain. He has not yet had an endoscopy. He is in the emergency department specifically because he believes he has become malnourished and dehydrated. He has a follow-up outpatient on Sunday to consider upper endoscopy. We did discuss potential etiologies including malignancy. Our focus today will be to hydrate him and check for any significant electrolyte abnormalities. I have ordered B12 and Vit D for f/u purposes. Additionally, his rhythm was irregular and found to be afib on EKG--he has hx of this but unclear whether usually in sinus or afib. Patient has expected findings of protein calorie malnutrition, hypokalemia, hypomagnesemia, hypocalcemia, dehydration with low sodium and chloride. Patient was given 2 L of sodium chloride and electrolyte replacement. No other emergent findings necessitating admission. The patient has a follow-up on Sunday to consider upper endoscopy which I have strongly recommended he keep this appointment. Will discharge with potassium and magnesium supplementation as well as recommendation to use high density, high calorie shakes such as Ensure or boost. Lab Data 07/14/22 10:26 07/14/22 10:26 Laboratory Results WBC 7.7 10^3/uL (4.0-10.0) 07/14/22 10:26 RBC 3.95 10^6/uL (4.1-5.3) L 07/14/22 10:26 Hgb 14.3 g/dL (11.7-16.6) 07/14/22 10:26 Hct 40.2 % (42.0-52.0) L 07/14/22 10:26 MCV 101.8 fl (80-94) H 07/14/22 10:26 MCH 36.2 pg (28.0-34.0) H 07/14/22 10: MCHC 35.6 g/dL (30.0-36.0) 07/14/22 10: RDW 12.7 % (12.1-15.1) 07/14/22 10: Plt Count 224 10^3/cmm (130-400) 07/14/22 10: MPV 12.1 fL (7.4-10.4) H 07/14/22 10:26 Neut % (Auto) 79.0 % 07/14/22 10:26 Lymph % (Auto) 6.0 % 07/14/22 10: [place] % (Auto) 13.1 % 07/14/22 10: Eos % (Auto) 0.7 % 07/14/22 10: Baso % (Auto) 0.7 % 07/14/22 10: Neut # (Auto) 6.06 10^3/uL (1.8-7.7) 07/14/22 10:26 Lymph # (Auto) 0.5 10^3/uL (0.8-4.8) L 07/14/22 10:26 [place] # (Auto) 1.0 10^3/uL (0.2-0.9) H 07/14/22 10:26 Eos # (Auto) 0.1 10^3/uL (0.0-0.8) 07/14/22 10: Baso # (Auto) 0.1 10^3/uL (0.0-0.1) 07/14/22 10:26 Nucleated RBC % (auto) 0 % 07/14/22 10:26 Nucleated RBCs # 0.0 /100WBC 07/14/22 10:26 Sodium 135 mmol/L (136-145) L 07/14/22 10:26 Potassium 2.9 mmol/L (3.5-5.1) L 07/14/22 10:26 Chloride 88 mmol/L (98-107) L 07/14/22 10:26 Carbon Dioxide 31 mmol/L (22-29) H 07/14/22 10:26 Anion Gap 18.9 (5-19) 07/14/22 10:26 BUN 10 mg/dL (8-23) 07/14/22 10:26 Creatinine 0.9 mg/dL (0.7-1.2) 07/14/22 10:26 GFR Calculation 83.9 mL/min (90-130) L 07/14/22 10:26 Glucose 107 mg/dL (65-115) 07/14/22 10:26 Calculated Osmolality 280 mOsm/kg (285-295) L 07/14/22 10:26 Calcium 8.1 mg/dL (8.5-10.5) L 07/14/22 10:26 Phosphorus 3.2 mg/dL (2.5-4.5) 07/14/22 10:26 Magnesium 1.4 mg/dL (1.7-2.3) L 07/14/22 10:26 Total Bilirubin 0.8 mg/dL (0.15-1.2) 07/14/22 10:26 AST 81 U/L (0-40) H 07/14/22 10:26 ALT 21 U/L (0-41) 07/14/22 10:26 Alkaline Phosphatase 102 U/L (40-130) 07/14/22 10:26 Total Protein 6.1 g/dL (6.6-8.7) L 07/14/22 10:26 Albumin 3.1 g/dL (3.5-5.2) L 07/14/22 10:26 Globulin 3.0 g/dL (1.3-4.6) 07/14/22 10:26 Prealbumin 11.8 mg/dL (20-40) L 07/14/22 10:26 Lipase 33 U/L (13-60) 07/14/22 10:26 Vitamin B12 449 pg/mL (232-1245) 07/14/22 10:50 EKG Data EKG 1: Interpretation: Atrial fibrillation with ventricular rate of 74, normal axis, QRS 100 ms, some nonspecific ST/T wave abnormalities Discharge Plan Discharge Patient Disposition: Home Clinical Impression: Protein-calorie malnutrition, moderate, Dehydration, Loss of appetite, Hypomagnesemia, Hypokalemia Condition: Stable Prescriptions: New potassium citrate 15 mEq tablet extended release 15 meq PO TID 5 Days Qty: 15 0RF magnesium oxide 400 mg magnesium capsule 400 mg PO DAILY 7 Days Qty: 7 0RF No Action tamsulosin 0.4 mg capsule 0.4 mg PO BID Qty: 180 3RF diltiazem HCl 120 mg capsule,extended release 12 hr 120 mg PO DAILY metoprolol succinate 100 mg tablet extended release 24 hr 100 mg PO BEDTIME Discharge Orders: Discharge ED (Routine); Ordered 07/14/22 Ordered By: Parish Fletcher Referrals: Mallika Ceja MD [Primary Care Provider] - (Please keep your follow-up on Sunday for consideration of upper endoscopy) Discharge Diet: Advance as tolerated Discharge Activity: Increase activity as tolerated Patient Instructions: Malnutrition (DC), Hypokalemia (ED), Upper Endoscopy (DC) Activity Restrictions/Additional Instructions: Please keep your follow-up on Sunday to discuss upper endoscopy. Furthermore, you need to be taking nutrition supplements such as boost or Ensure even if it is only a little bit at a time to maintain your hydration and nutrition Coding Level of Care Code ED Acute Care Nurse Practitioner for Chg Fwd Exam Comprehensive
[2022-07-14 11:34] LABS: Basophils # 0.1 10^3/uL (0.0-0.1); Basophils % 0.7 %; Eosinophils # 0.1 10^3/uL (0.0-0.8); Eosinophils % 0.7 %; Hematocrit 40.2 % (42.0-52.0); Hemoglobin 14.3 g/dL (11.7-16.6); Lymphocytes # 0.5 10^3/uL (0.8-4.8); Mean Corpuscular HGB Conc 35.6 g/dL (30.0-36.0); Mean Corpuscular Hemoglobin 36.2 pg (28.0-34.0); Mean Corpuscular Volume 101.8 fl (80-94); Mean Platelet Volume 12.1 fL (7.4-10.4); Monocytes % 13.1 %; Neutrophils # 6.06 10^3/uL (1.8-7.7); Nucleated Red Blood Cells % 0 %; Platelet Count 224 10^3/cmm (130-400); Red Blood Count 3.95 10^6/uL (4.1-5.3); Red Cell Distribution Width 12.7 % (12.1-15.1); White Blood Count 7.7 10^3/uL (4.0-10.0)
[2022-07-14] MEDS: sodium chloride 0.9% 1,000 ML 999 ML IV ×2 (11:36→12:42)
[2022-07-14 11:45] LABS: Alanine Aminotransferase 21 U/L (0-41); Albumin Level 3.1 g/dL (3.5-5.2); Alkaline Phosphatase 102 U/L (40-130); Anion Gap 18.9 (5-19); Aspartate Amino Transferase 81 U/L (0-40); Blood Urea Nitrogen 10 mg/dL (8-23); Calcium 8.1 mg/dL (8.5-10.5); Carbon Dioxide 31 mmol/L (22-29); Chloride 88 mmol/L (98-107); Creatinine Clr Calc Pharmacy 92.5351; Glomerular Filtration Rate 83.9 mL/min (90-130); Glucose 107 mg/dL (65-115); Lipase 33 U/L (13-60); Magnesium 1.4 mg/dL (1.7-2.3); Osmolality Calculated 280 mOsm/kg (285-295); Phosphorus 3.2 mg/dL (2.5-4.5); Prealbumin 11.8 mg/dL (20-40); Sodium 135 mmol/L (136-145); Total Bilirubin 0.8 mg/dL (0.15-1.2); Total Protein 6.1 g/dL (6.6-8.7)
[2022-07-14 11:48] LABS: Potassium 2.9 mmol/L (3.5-5.1)
[2022-07-14] MEDS: potassium chloride ER 20 mEq Tablet 40 MEQ PO (12:03)
[2022-07-14] MEDS: calcium gluconate 0.9% NaCL 1 GM/50 ML PREMIX IV ×2 (12:04→12:37)
[2022-07-14] MEDS: magnesium sulfate premix 4 GM/100 ML PREMIX IV (12:34)
[2022-07-14 13:09] LABS: Vitamin B12 449 pg/mL (232-1245)
--- NOTE | 2022-07-14 13:37 | ECG_ITS ---
[facility] Test Date: 2022-07-14 Pat Name: Ethan Hardy Department: Room: Gender: Male Senior It Security Analyst: : 1955 Requested By: Parish Fletcher Order Number: [id number] Lalita MD: Edmond Chopra M.D. Measurements Intervals [place] Rate: 74 P: 0 [place]: 0 QRS: 34 QRSD: 100 T: 68 QT: 406 QTc: 451 Interpretive Statements ATRIAL FIBRILLATION NONSPECIFIC ST & T-WAVE ABNORMALITY Compared to ECG 01/03/2021 06:17:07 T-wave abnormality now present Sinus rhythm no longer present Electronically Signed On 07-14-2022 13:51:30 HYDROGRAPHICAL TECHNICAL OFFICER by Edmond Chopra M.D. [id number]
[2022-07-20 11:30] LABS: Vit D 1,25 (Oh)2, Total 62 pg/mL (18-72); Vit D2 1,25 (Oh)2 <8 pg/mL; Vit D3 1,25 (Oh)2 62 pg/mL
== END 2022-07-14 14:55 | disposition home or self-care (01) ==
PROVIDERS: Emergency Provider Emergency Medicine; PCP Family Medicine
DX: E87.6 Hypokalemia (principal); E83.42 Hypomagnesemia; R63.0 Anorexia; E86.0 Dehydration; E44.0 Moderate protein-calorie malnutrition; I10 Essential (primary) hypertension; E78.2 Mixed hyperlipidemia
CPT/HCPCS: 80053; 82607; 82652; 83690; 83735; 84100; 84134; 85025; 93005; 96365; 96367; 99284; J0610; J3475; J7030

== ENCOUNTER 2022-08-07 09:09 | Inpatient (IN) | payer MEDICARE, SELFPAY ==
[2022-08-07] VITALS (82 sets, daily range): BP systolic 70–136; BP diastolic 49–95; PULSE 103–169; RESP 13–29; TEMP 36.6–36.9; O2SAT 57–100; BMI 29.2
--- NOTE | 2022-08-07 09:15 | ED_ITS ---
HPI - Arrhythmia/Palpitations General: Chief Complaint: Arrhythmia/Palpitations Stated Complaint: dizziness/ nausea/ afib Time Seen by Provider: 08/07/22 09:15 Source: patient History of Present Illness: 67-year-old male with a known history of atrial fibrillation presents to the emergency room having stopped his Cardizem 3 weeks ago. Continue to take his losartan. He denies any chest pain but he has been short of breath. He stopped his Cardizem because he was getting lightheaded and dizzy his home blood pressure monitoring shows blood pressure to be low without you better to stop Cardizem. EMS given 20 mg of IV push Cardizem in the field without relief of symptoms. He presents here with a rate in the 150s to 160s and is hypotensive. He is not on any anticoagulation. complaint: atrial fibrillation Onset (ago): day(s) Duration: constant Severity: severe Context: occurred during rest Arrhythmia history: atrial fibrillation Associated symptoms: Reports nausea and short of breath; Deny anxiety, cough, diaphoresis, muscle cramps, paresthesias, sense of impending doom, syncope or vomiting Treatments prior to arrival: calcium channel mery Review of Systems Const: Reports: fatigue; Denies: fever(s), chills, malaise or diaphoresis ENMT: Denies: throat pain, ear or mastoid pain, nasal discharge or nasal congestion Card: Reports: chest pain, palpitations and irregular heart rhythm; Denies: edema, swelling of feet/ankles or syncope Resp: Denies: dyspnea, productive cough or non-productive cough GI: Reports: nausea; Denies: abdominal pain or vomiting : Denies: dysuria, urinary frequency or urinary urgency Musc: Denies: muscle cramps Skin/Breast: Denies: rash or pruritus Psych: Denies: anxiety PFSH ED PFSH: Medical History Abnormal nuclear stress test Alcohol abuse Atrial fibrillation Benign essential hypertension with target blood pressure below 140/90 BPH loc w urin obs/LUTS BPH loc w urin obs/LUTS Carotid artery disease Right carotid is occluded Elevated PSA Hypertension Intermittent palpitations Intestinal malrotation Mixed hyperlipidemia Premature ventricular contractions Somnolence, daytime Systolic heart failure Urinary hesitancy Surgical History History of bariatric surgery Gastric sleeve ([place]) History of left knee surgery History of right hip replacement History of tonsillectomy and adenoidectomy History of ventral hernia repair x 2, supraumbilical, second time with mesh S/P carotid endarterectomy Family History Sister Clotting disorder Father , at age 92 CAD (coronary artery disease) Grandmother Dementia Mother , at age 78 Lung disease Hip fracture Social History (Updated 08/07/22 @ 12:47 by Mejia Lawler MD) Smoking and tobacco status: never smoked Alcohol intake: current Alcohol intake frequency: 3 or more drinks per day Alcohol type: hard liquor Counseling given: Yes Housing: House Marital status: Current occupational status: retired History of recent travel: No Physical Exam Const: COMMON NORMALS: no acute distress GENERAL APPEARANCE: cooperative and comfortable ORIENTATION/CONSCIOUSNESS: Yes awake, Yes oriented to person, Yes oriented to place and Yes oriented to time HENMT: COMMON NORMALS: normocephalic, atraumatic and hearing grossly normal bilaterally HEAD & SCALP: normocephalic and atraumatic Resp: COMMON NORMALS: normal respiratory effort, No retractions, No use of accessory muscles and clear to auscultation bilaterally AUSCULTATION: clear to auscultation bilaterally Cardio: COMMON NORMALS: No murmurs present (Cardio) RATE: tachycardic RHYTHM: abnormal rhythm irregularly irregular GI: COMMON NORMALS: Soft to palpation and No hepatosplenomegaly present AUSCULTATION: Yes normoactive bowel sounds PALPATION: Yes Soft to palpation, No Tenderness to palpation present (GI), No Guarding due to palpation present (GI) and Yes No hepatosplenomegaly present Extremity: COMMON NORMALS: normal to inspection, capillary refill normal, no clubbing, cyanosis or edema, no calf tenderness and no pedal edema Neuro: SENSORIUM/ORIENTATION: Yes oriented to person, Yes oriented to place and Yes oriented to time Skin: COMMON NORMALS: no rashes or lesions noted GENERAL SKIN EXAM: no rashes or lesions noted Course Vital Signs: Vital signs: Vital Signs Temperature 97.9 F 08/07/22 09:16 Pulse Rate 123 H 08/07/22 13:40 Respiratory Rate 17 08/07/22 13:40 Blood Pressure 84/63 08/07/22 13:40 Pulse Oximetry 79 L 08/07/22 13:40 Oxygen Delivery Me thod 08/07/22 09:41 MDM - Arrhythmia/Palpitations Medical Decision Making Atrial fibrillation with difficult to control rate he is continue take his metoprolol but is not taking his Cardizem he stopped that 3 weeks ago initially tried Cardizem he had no improvement of his rate with IV push or with a drip. Switch to amiodarone which did improve his rate control however he remained hypotensive his anion gap is elevated he has been given IV fluids. Discussed with hospitalist will admit to the ICU Medical Records I reviewed the patient's medical records. Lab Data I reviewed the patient's lab results. 08/07/22 09:57 08/07/22 10:08 Radiology Impressions Chest X-Ray 08/07/22 09:19 IMPRESSION: Left lung base and left costophrenic angle changes as above. These most likely are chronic however acute process, inflammatory, not completely excluded. Recommend follow-up chest x-ray. Laboratory Results WBC 9.4 10^3/uL (4.0-10.0) 08/07/22 09:57 Corrected WBC Cancelled 08/07/22 09:21 RBC 3.75 10^6/uL (4.1-5.3) L 08/07/22 09:57 Hgb 13.1 g/dL (11.7-16.6) 08/07/22 09:57 Hct 40.6 % (42.0-52.0) L 08/07/22 09:57 MCV 108.3 fl (80-94) H 08/07/22 09:57 MCH 34.9 pg (28.0-34.0) H 08/07/22 09:57 MCHC 32.3 g/dL (30.0-36.0) 08/07/22 09:57 RDW 14.2 % (12.1-15.1) 08/07/22 09:57 Plt Count 292 10^3/cmm (130-400) 08/07/22 09:57 MPV 11.4 fL (7.4-10.4) H 08/07/22 09:57 Gran % Cancelled 08/07/22 09:21 Neut % (Auto) 81.9 % 08/07/22 09:57 Lymph % (Auto) 3.7 % 08/07/22 09:57 [place] % (Auto) 13.6 % 08/07/22 09:57 Eos % (Auto) 0.1 % 08/07/22 09:57 Baso % (Auto) 0.2 % 08/07/22 09:57 Neut # (Auto) 7.68 10^3/uL (1.8-7.7) 08/07/22 09:57 Lymph # (Auto) 0.4 10^3/uL (0.8-4.8) L 08/07/22 09:57 [place] # (Auto) 1.3 10^3/uL (0.2-0.9) H 08/07/22 09:57 Eos # (Auto) 0.0 10^3/uL (0.0-0.8) 08/07/22 09:57 Baso # (Auto) 0.0 10^3/uL (0.0-0.1) 08/07/22 09:57 Absolute Gran (auto) Cancelled 08/07/22 09:21 Nucleated RBC % (auto) 0 % 08/07/22 09:57 Nucleated RBCs # 0.0 /100WBC 08/07/22 09:57 Sodium 137 mmol/L (136-145) 08/07/22 11:15 Potassium 3.2 mmol/L (3.5-5.1) L 08/07/22 11:15 Chloride 97 mmol/L (98-107) L 08/07/22 11:15 Carbon Dioxide 19 mmol/L (22-29) L 08/07/22 11:15 Anion Gap 24.2 (5-19) H 08/07/22 11:15 BUN 25 mg/dL (8-23) H 08/07/22 11:15 Creatinine 2.0 mg/dL (0.7-1.2) H 08/07/22 11:15 GFR Calculation 33.4 mL/min (90-130) L 08/07/22 11:15 Glucose 121 mg/dL (65-115) H 08/07/22 11:15 Calculated Osmolality 290 mOsm/kg (285-295) 08/07/22 11:15 Calcium 6.4 mg/dL (8.5-10.5) L 08/07/22 11:15 Magnesium 0.9 mg/dL (1.7-2.3) L 08/07/22 11:15 Total Bilirubin 1.1 mg/dL (0.15-1.2) 08/07/22 11:15 AST 13 U/L (0-40) 08/07/22 11:15 ALT 8 U/L (0-41) 08/07/22 11:15 Alkaline Phosphatase 80 U/L (40-130) 08/07/22 11:15 Total Protein 6.2 g/dL (6.6-8.7) L 08/07/22 11:15 Albumin 2.8 g/dL (3.5-5.2) L 08/07/22 11:15 Globulin 3.4 g/dL (1.3-4.6) 08/07/22 11:15 Lipase 22 U/L (13-60) 08/07/22 11:15 Vitamin B12 582 pg/mL (232-1245) 08/07/22 11:15 Folate 3.7 ng/mL (4.5-32.2) L 08/07/22 11:55 TSH 0.95 uIU/mL (0.27-4.20) 08/07/22 11:15 Discharge Plan Discharge Patient Disposition: Admitted As Inpatient Admit Provider: Mejia aLwler Clinical Impression: Atrial fibrillation and flutter, Alcohol abuse, Acute kidney injury, Hypotension, High anion gap metabolic acidosis Condition: Stable Coding Level of Care Code ED Diamond Sizer for Chg Fwd Exam Detailed
--- NOTE | 2022-08-07 09:19 | XR_ITS ---
WS: [id number] XR chest 1V portable [id number] REASON FOR EXAM: dyspnea/cough FINDINGS: Mild to moderate tortuosity the thoracic aorta with normal heart size. No active pulmonary parenchymal or pleural disease is identified. Mild degenerative changes in the shoulder joints and the mid and lower thoracic spine. Blunting of the left costophrenic angle. Minimal associated linear interstitial densities in the left lung base. The chest is otherwise unchanged compared to 09/20/2020. XR/XR chest 1V portable [id number] IMPRESSION: Left lung base and left costophrenic angle changes as above. These most likely are chronic however acute process, inflammatory, not completely excluded. Recom mend follow-up chest x-ray.
--- NOTE | 2022-08-07 09:19 | ECG_ITS ---
[facility] Test Date: 2022-08-07 Pat Name: Ethan Hardy Department: Room: Gender: Male Manufacturing Management Associate: : 1955 Requested By: Griffin Cali Order Number: [id number] Lalita MD: Navneet Huang M.D. Measurements Intervals [place] Rate: 152 P: 0 [place]: 0 QRS: 10 QRSD: 92 T: 160 QT: 279 QTc: 445 Interpretive Statements ATRIAL FIBRILLATION WITH RAPID VENTRICULAR RESPONSE WITH ABERRANT CONDUCTION OR VENTRICULAR PREMATURE COMPLEXES LOW QRS VOLTAGE IN PRECORDIAL LEADS [QRS DEFLECTION < 1.0 mV IN CHEST LEADS] NONSPECIFIC ST & T-WAVE ABNORMALITY CRITICAL TEST RESULT Compared to ECG 07/14/2022 10:06:32 Ventricular premature complex(es) now present Aberrant conduction of supraventricular beat(s) now present Low QRS voltage now present T-wave abnormality still present Electronically Signed On 08-07-2022 20:26:42 DYE REEL OPERATOR by Navneet Huang M.D. [id number]
[2022-08-07] MEDS: dilTIAZem 100 MG in sodium chloride 0.9% (add-van) 100 ML IV (09:34)
[2022-08-07 10:05] LABS: Basophils % 0.2 %; Eosinophils % 0.1 %; Hematocrit 40.6 % (42.0-52.0); Hemoglobin 13.1 g/dL (11.7-16.6); Lymphocytes # 0.4 10^3/uL (0.8-4.8); Lymphocytes % 3.7 %; Mean Corpuscular HGB Conc 32.3 g/dL (30.0-36.0); Mean Corpuscular Hemoglobin 34.9 pg (28.0-34.0); Mean Corpuscular Volume 108.3 fl (80-94); Mean Platelet Volume 11.4 fL (7.4-10.4); Monocytes # 1.3 10^3/uL (0.2-0.9); Monocytes % 13.6 %; Neutrophils # 7.68 10^3/uL (1.8-7.7); Neutrophils % 81.9 %; Nucleated Red Blood Cells % 0 %; Platelet Count 292 10^3/cmm (130-400); Red Blood Count 3.75 10^6/uL (4.1-5.3); Red Cell Distribution Width 14.2 % (12.1-15.1); White Blood Count 9.4 10^3/uL (4.0-10.0)
--- NOTE | 2022-08-07 10:52 | PC.NURSE ---
Provider order amioderone to be tritrated from 0.5 to 1.
[2022-08-07 11:38] LABS: Alanine Aminotransferase 8 U/L (0-41); Albumin Level 2.8 g/dL (3.5-5.2); Alkaline Phosphatase 80 U/L (40-130); Anion Gap 24.2 (5-19); Aspartate Amino Transferase 13 U/L (0-40); Blood Urea Nitrogen 25 mg/dL (8-23); Calcium 6.4 mg/dL (8.5-10.5); Carbon Dioxide 19 mmol/L (22-29); Chloride 97 mmol/L (98-107); Globulin 3.4 g/dL (1.3-4.6); Glomerular Filtration Rate 33.4 mL/min (90-130); Glucose 121 mg/dL (65-115); Osmolality Calculated 290 mOsm/kg (285-295); Potassium 3.2 mmol/L (3.5-5.1); Sodium 137 mmol/L (136-145); Total Bilirubin 1.1 mg/dL (0.15-1.2); Total Protein 6.2 g/dL (6.6-8.7)
[2022-08-07] MEDS: sodium chloride 0.9% 500 ML 999 ML IV (11:57)
--- NOTE | 2022-08-07 12:12 | CTR_ITS ---
PROCEDURE INFORMATION: Exam: CT Abdomen And Pelvis Without Contrast Exam date and time: 08/07/2022 2:29 PM Age: 67 years old Clinical indication: Nausea and vomiting; Prior surgery; Surgery type: Gastric bypass, bilateral hips; Additional info: Renal failure, vomiting for 2 weeks, history of gastric bypa TECHNIQUE: Imaging protocol: Computed tomography of the abdomen and pelvis without contrast. Radiation optimization: All CT scans at this facility use at least one of these dose optimization techniques: automated exposure control; mA and/or kV adjustment per patient size (includes targeted exams where dose is matched to clinical indication); or iterative reconstruction. COMPARISON: CT abdomen pelvis w con* [id number] 09/04/2019 12:36 PM RADIATION DOSE METRICS: Total DLP (mGy-cm): 992.33 FINDINGS: Lungs: Vbnz-[id number]-right lung base atelectasis or airspace disease. Trace left pleural effusion. Heart: The heart is upper limits normal size. Diaphragm: Small hiatal hernia. Liver: Large and fatty liver. No liver mass is noted. Gallbladder and bile ducts: No calcified gallstones or biliary dilation identified. Pancreas: Unremarkable with no suspicious mass. No ductal dilation. Spleen: The spleen is not enlarged. No suspicious mass is noted. Adrenal glands: Normal. No mass. Kidneys and ureters: A small left renal cyst is possible. No large renal mass or hydronephrosis seen. Small right upper renal 2.4 cm probable cyst. Stomach and bowel: Gastric postop changes. Very severe sigmoid diverticulosis. No small bowel obstruction, abscess or free air. Appendix: No evidence of appendicitis. Intraperitoneal space: See Stomach and bowel finding. Vasculature: Advanced diffuse vascular calcification noted. Lymph nodes: No enlarged lymph nodes. Urinary bladder: Unremarkable as visualized. Reproductive: Unremarkable as visualized. Bones/joints: Left hip postop change. Right hip arthroplasty. Moderate lumbar spine DJD. Soft tissues: Small fat umbilical hernia. Bilateral gynecomastia. CT/CT abdomen pelvis wo con [id number] IMPRESSION: 1. No small bowel obstruction, abscess or free air. 2. Severe left colon diverticulosis with no strong evidence for active diverticulitis. 3. Postop changes, hepatic steatosis, and other chronic findings above. 4. Trace left effusion with hrtv-drunpii-[id number]-right bibasilar atelectasis or airspace disease. Advise correlation. COMMENTS: Consistent with the [place] [employer]'s Incidental Findings Committee white paper (J Am Melva Radiol 2018): Any incidental renal lesion less than 1 cm or classified as too small to characterize, or any incidental cystic renal lesion characterized as simple-appearing, is likely benign. No follow-up imaging is recommended for these lesions per consensus recommendations based on imaging criteria.
--- NOTE | 2022-08-07 12:16 | P.HP_ITS ---
Providers/Chief Complaint Admitting Physician: Mejia Lawler MD Primary Care Provider: Mallika Ceja MD Chief Complaint: dizziness/ nausea/ afib History of Present Illness Ethan Hardy is a 67 year old male presenting to the emergency department complaining of feeling dizzy, and having some lower blood pressures over the last several days. He is also been nauseated and throwing up over the last several weeks. He reports he saw Dr. St in clinic for consideration of EGD, but they decided not to do it secondary to his history of gastric bypass. When he found out his blood pressure was low about a week ago he stopped taking his diltiazem. He did not really have any palpitations, until the last several days. He reports when he saw the physician in clinic, they did not note that his heart rate was high, only that his blood pressure was low. He reports no blood in his emesis. He reports no blood in his stool or black or tarry stools. He reports he still drinks alcohol, about a quarter of a pint a day. He does not think he will withdrawal. He denies any recent illness, fever, cough. Review of Systems General: Reports: 10 or more systems reviewed and unremarkable except in HPI and below Const: Reports: fatigue and malaise; Denies: fever(s) or chills Eyes: Denies: change in vision ENMT: Denies: throat pain Card: Reports: palpitations and dyspnea on exertion; Denies: chest pain or swelling of feet/ankles Resp: Reports: dyspnea; Denies: productive cough or non-productive cough GI: Reports: nausea and vomiting; Denies: abdominal pain, hematemesis, hematochezia or melena : Denies: flank pain Musc: Denies: neck pain Skin/Breast: Denies: rash Neuro: Reports: dizziness Psych: Denies: anxiety or depression Endo: Denies: polyuria Panfilo/Lymph: Denies: easy bruising All/Imm: Denies: urticaria Medications/Allergies Home Medications Medication Instructions Recorded Confirmed Last Taken Type tamsulosin 0.4 mg capsule 0.4 mg PO BID #180 caps 07/05/21 08/07/22 08/07/22 Rx diltiazem HCl 120 mg 120 mg PO DAILY 01/25/22 08/07/22 07/14/22 History capsule,extended release 12 hr metoprolol succinate 100 mg 100 mg PO BEDTIME 07/14/22 08/07/22 08/06/22 History tablet,extended release 24 hr Allergies Allergy/AdvReac Type Severity Reaction Status Date / Time No Known Allergies Allergy Verified 08/07/22 11:29 PFSH Acute PFSH: Medical History Abnormal nuclear stress test Alcohol abuse Atrial fibrillation Benign essential hypertension with target blood pressure below 140/90 BPH loc w urin obs/LUTS BPH loc w urin obs/LUTS Carotid artery disease Right carotid is occluded Elevated PSA Hypertension Intermittent palpitations Intestinal malrotation Mixed hyperlipidemia Premature ventricular contractions Somnolence, daytime Systolic heart failure Urinary hesitancy Surgical History History of bariatric surgery Gastric sleeve ([place]) History of left knee surgery History of right hip replacement History of tonsillectomy and adenoidectomy History of ventral hernia repair x 2, supraumbilical, second time with mesh S/P carotid endarterectomy Family History Sister Clotting disorder Father , at age 92 CAD (coronary artery disease) Grandmother Dementia Mother , at age 78 Lung disease Hip fracture Social History (Updated 08/07/22 @ 12:47 by Mejia Lawler MD) Smoking and tobacco status: never smoked Alcohol intake: current Alcohol intake frequency: 3 or more drinks per day Alcohol type: hard liquor Counseling given: Yes Housing: House Marital status: Current occupational status: retired History of recent travel: No Vitals/I&O/Wt Last Vital Signs Temp 97.9 F 08/07/22 09:16 Pulse 124 H 08/07/22 10:30 Resp 21 H 08/07/22 10:30 BP 76/57 08/07/22 10:30 Pulse Ox 85 L 08/07/22 10:30 O2 Del Method 08/07/22 09:41 08/06/22 08/07/22 08/07/22 22:59 06:59 14:59 Intake Total 110.091 / 110.091 Balance 110.091 / 110.091 Weight last 48 hrs Weight 95.254 kg Physical Exam Narrative: General exam is a conversant white male, with an irregular narrow complex rhythm at 160 on the monitor, getting amiodarone infused. He reports he is feeling okay and not dizzy or short of breath currently. HEENT: Atraumatic and normocephalic. Pupils equally round. Oropharynx clear Neck is supple no lymphadenopathy or thyromegaly Cardiovascular irregular, irregular without murmur Lungs clear no wheezing or crackles Abdomen is soft nontender positive bowel sounds. No obvious organomegaly exam was deferred Extremities no cyanosis clubbing or edema, cap refill brisk Skin no rash Neuro no obvious focal deficits. Data 08/07/22 09:57 08/07/22 11:15 Other Labs: Chest x-ray with slight blunting of the left costophrenic angle, otherwise no acute changes EKG demonstrates atrial fibrillation with rapid ventricular rate, borderline left axis deviation, nonspecific ST-T wave changes laterally. Also noted in V4 through 6. Rate was 152 and EKG was done. No ST elevation. Previous echocardiogram April 2022 demonstrated a normal EF, improved from an EF of 40% in August 2020 Event monitor in October 2020 demonstrated occasional episodes of nonsustained ventricular tachycardia, longest was 11 beats. MCV is elevated at 108 Calcium is normal Magnesium low at 0.9 LFTs normal Albumin 2.8 Folate 3.7 TSH 0.95 B12 normal A&P Assessment and plan (1) Atrial fibrillation: Patient presents with atrial fibrillation with rapid ventricular rate. From my understanding he got a Cardizem bolus, and a Cardizem drip that was not successful in controlling his heart rate. Amiodarone was then Initiated. He had previously stopped his Cardizem at least several weeks ago. I believe he was still taking his metoprolol. Patient stopped his medication secondary to low blood pressure. For now I will not fully anticoagulate, until I know his CT abdomen and pelvis. For now just DVT prophylaxis with heparin. He is not a good candidate for anticoagulation long-term secondary to his alcoholism. Cardiology consultation (2) Acute kidney injury: Patient presents with acute kidney injury. Is intractable nausea and vomiting might play a part He has been given fluid boluses in the emergency department and will continue IV fluids, with close follow-up of creatinine Check CT abdomen and pelvis without contrast for his intractable nausea vomiting, which will also suffice to make sure he has no obstruction in his urinary tract Await urinalysis (3) Hypokalemia: Supplement IV, recheck (4) Hypomagnesemia: Supplement IV, recheck (5) Hypotension: Patient with hypotension in the emergency department. He reports this was occurring even prior to his treatment with Cardizem IV. Fluid resuscitation underway Avoid antihypertensives currently (6) Intractable nausea and vomiting: Patient with history of some intractable nausea vomiting the last several weeks He does have history of gastric bypass IV fluids currently CT abdomen and pelvis without contrast (7) Macrocytosis: Folate level is low He has history of gastric bypass, as well as alcoholism Supplement thiamine, folate TSH was checked and normal (8) Alcohol abuse: Encourage abstinence [facility] protocol. High risk for withdrawal although I do not believe he is withdrawing currently. Plan History of carotid artery disease and right carotid occlusion Multiple other medical problems as outlined in past medical history Full code Heparin for DVT prophylaxis Attestations Medical Necessity Statement*: Will require greater than 2 midnight stay for treatment of A. fib with RVR with hypotension, acute kidney injury, etc. Critical Care Time: The high probability of a clinically significant, sudden or life threatening deterioration of the patient's [renal, cardiac] system(s) required my full and direct attention, intervention and personal management. The critical care time is as shown. This time is in addition to time spent performing any reported procedures but includes the following: [x] Data and vital sign review and interpretation [x] Patient assessment, examination and intervention [x] Documentation [x] Medication orders and management Critical Care Time (min): 55 Coding Level of Care Code Acute Mgmt Analyst for [facility] Fwd Diagnoses Atrial fibrillation I48.91 Acute kidney injury N17.9 Hypokalemia E87.6 Hypomagnesemia E83.42 Hypotension I95.9 Intractable nausea and vomiting R11.2 Macrocytosis D75.89 Alcohol abuse F10.10
[2022-08-07 12:38] LABS: Thyroid Stimulating Hormone 0.95 uIU/mL (0.27-4.20); Vitamin B12 582 pg/mL (232-1245)
[2022-08-07 12:40] LABS: Folate Level 3.7 ng/mL (4.5-32.2)
[2022-08-07 12:42] LABS: Magnesium 0.9 mg/dL (1.7-2.3)
[2022-08-07 12:52] LABS: Lipase 22 U/L (13-60)
[2022-08-07] MEDS: magnesium sulfate premix 2 GM/50 ML PIGGYBACK IV (13:02)
[2022-08-07] MEDS: sodium chloride 0.9% 1,000 ML 999 ML IV (13:34)
[2022-08-07] MEDS: lidocaine 1% 5 ML in potassium chloride premix 100 ML 25 ML IV (14:15)
[2022-08-07] MEDS: sodium chloride 0.9% 1,000 ML 75 ML IV (15:31)
[2022-08-07] MEDS: pantoprazole 40 mg SDV IVP (15:31)
[2022-08-07] MEDS: heparin 5,000 unit/mL INJ 1 mL 5000 UNIT SUBCUT (15:31)
--- NOTE | 2022-08-07 17:17 | PM.CONSULT ---
Providers/Reason For Consult Consulting Physician/Specialty*: Edmond Chopra MD/ Cardiology Reason for Consult*: Afib with RVR Requesting Physician: Dr Lawler Attending Physician: Mejia Lawler MD Primary Care Provider: Mallika eCja MD History of Present Illness History of Present Illness Ethan Hardy is a 67 year old male with past medical history of hypertension and hyperlipidemia who was recently diagnosed with atrial fibrillation has presented to the hospital with feeling of dizziness. He also has had nausea and vomiting recently. Because of hypotension he had stopped taking his Cardizem. Heart rates are very high. He also had hypotension. He drinks about quarter pint a day Review of Systems General: Reports: 10 or more systems reviewed and unremarkable except in HPI and below Const: Reports: fatigue and malaise; Denies: fever(s) or chills Eyes: Denies: change in vision ENMT: Denies: throat pain Card: Reports: palpitations and dyspnea on exertion; Denies: chest pain or swelling of feet/ankles Resp: Reports: dyspnea; Denies: productive cough or non-productive cough GI: Reports: nausea and vomiting; Denies: abdominal pain, hematemesis, hematochezia or melena : Denies: flank pain Musc: Denies: neck pain Skin/Breast: Denies: rash Neuro: Reports: dizziness Psych: Denies: anxiety or depression Endo: Denies: polyuria Panfilo/Lymph: Denies: easy bruising All/Imm: Denies: urticaria Medications/Allergies Home Medications Medication Instructions Recorded Confirmed Last Taken Type tamsulosin 0.4 mg capsule 0.4 mg PO BID #180 caps 07/05/21 08/07/22 08/07/22 Rx diltiazem HCl 120 mg 120 mg PO DAILY 01/25/22 08/07/22 07/14/22 History capsule,extended release 12 hr metoprolol succinate 100 mg 100 mg PO BEDTIME 07/14/22 08/07/22 08/06/22 History tablet,extended release 24 hr Allergies Allergy/AdvReac Type Severity Reaction Status Date / Time No Known Allergies Allergy Verified 08/07/22 11:29 Current Medications Generic Name Dose Route Start Last Admin Trade Name Freq PRN Reason Stop Dose Admin Heparin Sodium (Porcine) 5,000 unit 08/07/22 14:54 08/07/22 15:31 Heparin 5,000 Unit/Ml Inj 1 Ml SUBCUT 5,000 unit Q12H ARNAV Administration Diltiazem HCl 100 mg/ Sodium 100 mls @ 0 mls/hr 08/07/22 09:30 08/07/22 14:21 Chloride IV Infused .Q0M ARNAV Titration Protocol Per Protocol Amiodarone HCl 900 mg/ 518 mls @ 0 mls/hr 08/07/22 10:00 08/07/22 10:52 Dextrose/ IV Miscellaneous IV 1 mg/min Supplies .Q0M ARNAV 34.53 mls/hr Titration Protocol Per Protocol Sodium Chloride 1,000 mls @ 75 mls/hr 08/07/22 14:54 08/07/22 15:31 Sodium Chloride 0.9% IV 75 mls/hr .[id number] ARNAV Administration Pantoprazole Sodium 40 mg 08/07/22 14:54 08/07/22 15:31 Pantoprazole 40 Mg Sdv IVP 40 mg Q12H ARNAV Administration PFSH Acute PFSH: Medical History Abnormal nuclear stress test Alcohol abuse Atrial fibrillation Benign essential hypertension with target blood pressure below 140/90 BPH loc w urin obs/LUTS BPH loc w urin obs/LUTS Carotid artery disease Right carotid is occluded Elevated PSA Hypertension Intermittent palpitations Intestinal malrotation Mixed hyperlipidemia Premature ventricular contractions Somnolence, daytime Systolic heart failure Urinary hesitancy Surgical History History of bariatric surgery Gastric sleeve ([place]) History of left knee surgery History of right hip replacement History of tonsillectomy and adenoidectomy History of ventral hernia repair x 2, supraumbilical, second time with mesh S/P carotid endarterectomy Family History Sister Clotting disorder Father , at age 92 CAD (coronary artery disease) Grandmother Dementia Mother , at age 78 Lung disease Hip fracture Social History Smoking and tobacco status: never smoked Alcohol intake: current Alcohol intake frequency: 3 or more drinks per day Alcohol type: hard liquor Counseling given: Yes Housing: House Marital status: Current occupational status: retired History of recent travel: No Vitals/I&O/Wt Last Vital Signs Temp 98.4 F 08/07/22 15:00 Pulse 112 H 08/07/22 15:45 Resp 21 H 08/07/22 15:45 BP 103/76 08/07/22 15:45 Pulse Ox 94 08/07/22 15:45 O2 Del Method 08/07/22 15:10 08/07/22 08/07/22 08/07/22 06:59 14:59 22:59 Intake Total 1755.591 / 1755.591 Balance 1755.591 / 1755.591 Weight last 48 hrs Weight 210 lb Physical Exam Narrative: GENERAL: Patient is alert, awake and oriented x3. [] NECK: No jugular vein distension. [] HEENT: No cyanosis. No icterus. No pallor. [] HEART: Tachycardic, irregularly irregular LUNGS: Clear to auscultate bilaterally. [] CENTRAL NERVOUS SYSTEM: Grossly nonfocal. [] EXTREMITIES: Lower extremities with 1+ edema bilaterally. Pulses palpable in the lower extremities, both dorsalis pedis and posterior tibial. [] Data 08/07/22 09:57 08/07/22 11:15 A&P Assessment and plan (1) Atrial fibrillation: (2) Hypotension: (3) Acute kidney injury: (4) Hypertension: Qualifiers: Hypertension type: essential hypertension Qualified Code(s): I10 - Essential (primary) hypertension Plan Patient has presented with [place] lezama with RVR. Currently on amiodarone drip. Continue for now. Start anticoagulation Continue metoprolol. Can uptitrate as needed. IV fluids. Echocardiogram ordered Thank you for involving us with care of this patient. We will continue to follow. Please call with questions Consult Attestations Medical Necessity Statement: Care expected to cross 2 midnights. Coding Level of Care Code Acute Skilled Laborer for g Fwd Diagnoses Atrial fibrillation I48.91 Hypotension I95.9 Acute kidney injury N17.9 Hypertension I10 Hypertension type: essential hypertension
[2022-08-07] MEDS: tamsulosin 0.4 mg Capsule PO (22:00)
--- NOTE | 2022-08-07 22:05 | PC.NURSE ---
Flomax Patient had not urinated since before 1400. Patient states that he feels he has some in there but that he just can't. Bladder scan revealed 378 ml. Patient takes 0.4 mg flomax PO BID at home; Dr. Oliveira contacted and telephone order received to restart home dose. See MAR for details.
[2022-08-08] VITALS (63 sets, daily range): BP systolic 90–138; BP diastolic 64–110; PULSE 93–161; RESP 11–31; TEMP 36.8–37.3; O2SAT 86–100; BMI 30.1
[2022-08-08 01:12] LABS: Add Urine Microscopic? NO; Charge for UA Resulting for Rev
--- NOTE | 2022-08-08 01:15 | PC.NURSE ---
Amio Patient's heart maintaining mainly in the 130-140s, periodically increasing into the 150-160s. Dr. Oliveira contacted and telephone order received to increase amio drip to 1 mg/min. Patient also complaining of cough, order received for 100 mg tessalon mateo TID. See MAR for administration.
[2022-08-08 01:22] LABS: Glucose Urine UA Norm (Normal); Protein Urine Neg (Negative); Specific Gravity, Urine 1.015 (1.005-1.030); Urine Appearance Clear (CLEAR); Urine Color Dark Yellow (Yellow); pH Urine 5 (5-7)
[2022-08-08 01:23] LABS: Bilirubin Urine 1+ (Negative); Blood Urine Neg (Negative); Ketones Urine 1+ (Negative); Leukocyte Esterase Urine Negative (Negative); Nitrate Urine Negative (Negative); Urobilinogen Urine 1 mg/dL (Negative)
[2022-08-08] MEDS: benzonatate 100 mg Capsule PO ×2 (01:23→20:13)
[2022-08-08] MEDS: pantoprazole 40 mg SDV IVP ×2 (02:08→14:23)
[2022-08-08] MEDS: heparin 5,000 unit/mL INJ 1 mL 5000 UNIT SUBCUT ×2 (02:08→14:23)
[2022-08-08 04:22] LABS: Basophils % 0.2 %; Eosinophils % 0.6 %; Hemoglobin 9.7 g/dL (11.7-16.6); Lymphocytes # 0.3 10^3/uL (0.8-4.8); Lymphocytes % 6.2 %; Mean Corpuscular HGB Conc 32.3 g/dL (30.0-36.0); Mean Corpuscular Hemoglobin 34.3 pg (28.0-34.0); Mean Platelet Volume 11.9 fL (7.4-10.4); Monocytes # 0.7 10^3/uL (0.2-0.9); Monocytes % 13.3 %; Neutrophils # 3.98 10^3/uL (1.8-7.7); Neutrophils % 79.1 %; Nucleated Red Blood Cells % 0 %; Platelet Count 193 10^3/cmm (130-400); Red Blood Count 2.83 10^6/uL (4.1-5.3); Red Cell Distribution Width 14.2 % (12.1-15.1)
[2022-08-08 04:42] LABS: Alanine Aminotransferase 7 U/L (0-41); Albumin Level 2.5 g/dL (3.5-5.2); Alkaline Phosphatase 64 U/L (40-130); Anion Gap 19.4 (5-19); Aspartate Amino Transferase 11 U/L (0-40); Blood Urea Nitrogen 24 mg/dL (8-23); Carbon Dioxide 20 mmol/L (22-29); Chloride 103 mmol/L (98-107); Globulin 2.5 g/dL (1.3-4.6); Glomerular Filtration Rate 46.5 mL/min (90-130); Glucose 87 mg/dL (65-115); Magnesium 1.1 mg/dL (1.7-2.3); Osmolality Calculated 291 mOsm/kg (285-295); Potassium 3.4 mmol/L (3.5-5.1); Sodium 139 mmol/L (136-145); Total Bilirubin 0.7 mg/dL (0.15-1.2)
--- NOTE | 2022-08-08 05:15 | PC.NURSE ---
Metoprolol/Young Patient urine output only 175 ml. Patient states that he is still unable to urinate. Bladder scan performed revealing 873 ml. Encouragement provided to patient to void; attempt made and 225 ml voided in urinal. Additionally, patient's HR still ranging from the 120-150s with amio at 1 mg/min. Dr. Oliveira contacted and orders received to insert a young catheter and to initiate 25 mg PO metoprolol tartrate BID. Young catheter inserted and 575 ml urine returned. See MAR for administration.
[2022-08-08] MEDS: metoprolol tartrate 25 mg Tablet PO (05:44)
[2022-08-08] MEDS: sodium chloride 0.9% 1,000 ML 75 ML IV ×2 (05:46→21:33)
[2022-08-08] MEDS: potassium chloride ER 20 mEq Tablet 40 MEQ PO (08:13)
[2022-08-08] MEDS: magnesium sulfate premix 4 GM/100 ML PREMIX IV (08:13)
[2022-08-08] MEDS: multivitamin therapeutic Tablet 1 TAB PO (08:13)
[2022-08-08] MEDS: thiamine 100 mg Tablet PO (08:13)
[2022-08-08] MEDS: folic acid 1 mg Tablet PO (08:13)
[2022-08-08] MEDS: tamsulosin 0.4 mg Capsule PO ×2 (08:13→17:16)
--- NOTE | 2022-08-08 08:49 | P.PN_ITS ---
Subjective Subjective: Ethan reports he feels better. No dizziness. Thinks he can tolerate some food/liquid. No chest discomfort. Amiodarone drip was increased last night secondary to elevated heart rates and metoprolol added. A Haq was also placed. He was placed back on his Flomax. Medications: Reviewed: Yes Vitals/I&O/Wt Last Vital Signs Temp 98.2 F 08/08/22 04:00 Pulse 112 H 08/08/22 07:00 Resp 24 H 08/08/22 07:00 BP 109/86 08/08/22 07:00 Pulse Ox 97 08/08/22 07:00 O2 Del Method 08/08/22 04:00 08/07/22 08/08/22 08/08/22 22:59 06:59 14:59 Intake Total 1156.784 / 2912.375 1140.175 / 4052.550 Output Total 750 / 750 Balance 1156.784 / 2912.375 390.175 / 3302.550 Weight last 48 hrs Weight 97.885 kg Weight 95.254 kg Physical Exam Narrative: General exam no distress currently Neck is supple no lymphadenopathy or thyromegaly Cardiovascular irregular, irregular without murmur. Still tachycardic but less so with a heart rate of around 110 Lungs clear no wheezing or crackles Abdomen is soft nontender positive bowel sounds. No obvious organomegaly exam demonstrates Haq Extremities no cyanosis clubbing or edema, cap refill brisk Skin no rash Urinary Catheter Management: Haq: Cath Placed During This Visit: yes Reason for Continuing Indwelling Catheter: Accurate Measurement of Urinary Outpu t in Critically Ill Patients Urinary Catheter Date of Insertion: 08/08/22 Urinary Catheter Time of Insertion: 05:30 Data 08/08/22 03:45 08/08/22 03:45 A&P Assessment and plan (1) Atrial fibrillation: Patient presents with atrial fibrillation with rapid ventricular rate. From my understanding he got a Cardizem bolus, and a Cardizem drip that was not successful in controlling his heart rate. Amiodarone was then Initiated. He had previously stopped his Cardizem at least several weeks ago. Patient stopped his medication secondary to low blood pressure. For now I will not fully anticoagulate. For now just DVT prophylaxis with heparin. He is not a good candidate for anticoagulation long-term secondary to his alcoholism. He has some significant anemia. Check stool Hemoccult. Cardiology consultation appreciated Currently on an amiodarone drip. Reduced to 0.5 Metoprolol 25 mg twice daily added. Monitor blood pressure. If tolerated could increase further. Await echocardiogram. Last echo on this patient demonstrated normal EF but the 1 before demonstrated an EF of 40%. 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 (2) Acute kidney injury: Patient presents with acute kidney injury. Is intractable nausea and vomiting might play a part He has been given fluid boluses in the emergency department and will continue IV fluids, with close follow-up of creatinine Check CT abdomen and pelvis demonstrated no obstruction Urinalysis unrevealing Renal function is improving with hydration (3) Hypokalemia: Supplement p.o. this morning as it is mild (4) Hypomagnesemia: Supplement IV, 4 g (5) Hypotension: Patient with hypotension in the emergency department. He reports this was occur ring even prior to his treatment with Cardizem IV. Fluid resuscitation occurred yesterday. Blood pressure is improved. (6) Intractable nausea and vomiting: Patient with history of some intractable nausea vomiting the last several weeks He does have history of gastric bypass CT abdomen and pelvis without contrast demonstrated no obstruction Initiate diet (7) Macrocytosis: Folate level is low He has history of gastric bypass, as well as alcoholism Supplement thiamine, folate TSH was checked and normal (8) Alcohol abuse: Encourage abstinence [facility] protocol. High risk for withdrawal although I do not believe he is withdr awing currently. Plan Anemia. Likely some delusional. Check stool Hemoccult. For now do not discontinue subcutaneous heparin. History of carotid artery disease and right carotid occlusion Multiple other medical problems as outlined in past medical history Full code Heparin for DVT prophylaxis Attestations Medical Necessity Statement*: Needs continued hospitalization secondary to A. fib with RVR, still undergoing treatment. Needs ICU care presently secondary to this. Critical Care Time: The high probability of a clinically significant, sudden or life threatening deterioration of the patient's [cardiac, electrolyte] system(s) required my full and direct attention, intervention and personal management. The critical care time is as shown. This time is in addition to time spent performing any reported procedures but includes the following: [x] Data and vital sign review and interpretation [x] Patient assessment, examination and intervention [x] Documentation [x] Medication orders and management Critical Care Time (min): 31 Coding Level of Care Code Acute Filling Separator for g Fwd Diagnoses Atrial fibrillation I48.91 Acute kidney injury N17.9 Hypokalemia E87.6 Hypomagnesemia E83.42 Hypotension I95.9 Intractable nausea and vomiting R11.2 Macrocytosis D75.89 Alcohol abuse F10.10
--- NOTE | 2022-08-08 10:32 | PC.CHAP ---
Pastoral Care Encounter/Spiritual Assessment Type of Contact [] Declined automotive brake specialist visit [] Patient/Family/Request visit [] Outpatient visit [] Follow-up visit [] Physician referral [] Code/Alert [x] Routine visit [] Staff referral [] Actively dying [x] Patient sleeping [] Family support [] [] Out of room [] Palliative care [] [] Receiving care in room [] Pre-surgical visit [] Trauma [] Long length of stay [x] ICU visit [] Other: Relational/Emotional Strength [] Patient feels connected with others/family/visitors/staff [] Distress [] Loneliness/isolation [] Abandonment Spirituality of Patient [] Person of Michelle [] Attends Congregational of their Michelle [] Believes in Prayer [] Reads Bible or Pentecostal materials [] There are Spiritual issues to be addressed Call Worker Person Interventions [x] Prayer [] Active listening [] Non-anxious presence [] Spiritual/emotional support [] Crisis/trauma care [] Spiritual counseling [] Bereavement support [] Provided bereavement packet [] Provided Bible/devotional materials [] Provided toy/stuffed animal, coloring book to patient or family member [] Provided Communion [] Anointing/[place] [] Salvation [x] Completed spiritual assessment [] Other: Impact on Illness or Injury [] Angry [] Fearful [] Anxious [] Often cries [] Exhaustion [] Unable to work [] Unable to attend church [] Unable to walk/stand [] Unable to read [] Unable to drive [] Unable to eat/drink [] Unable to sleep [] Unable to be with family [] Patient intubated [] Other: Summary Time spent with patient
[2022-08-08] MEDS: amiodarone 200 mg Tablet 400 MG PO ×2 (11:19→17:16)
[2022-08-08] MEDS: metoprolol tartrate 25 mg Tablet 12.5 MG PO (11:20)
--- NOTE | 2022-08-08 14:54 | USCV_ITS ---
Ethan Hardy Age: 67 Gender: M : 1955 Exam Date: 08/08/2022 09:06 Ordering Phys: Mejia Lawler MD Technologist: Nj Null Exam Location: [facility] [place] Indication: afib BP: 86 / 70 HR: 123 Rhythm: Sinus Technical Quality: Adequate MEASUREMENTS (Male / Female) Normal Values 2D ECHO LV Diastolic Diameter PLAX 3.9 cm 4.2 - 5.9 / 3.9 - 5.3 cm LV Systolic Diameter PLAX 3.5 cm IVS Diastolic Thickness 1.1 cm 0.6 - 1.0 / 0.6 - 0.9 cm IVS Systolic Thickness 1.2 cm LVPW Diastolic Thickness 1.0 cm 0.6 - 1.0 / 0.6 - 0.9 cm LVPW Systolic Thickness 1.0 cm LVOT Diameter 2.0 cm LV Ejection Fraction 2D Teich 22.5 % LV Ejection Fraction MOD 2C 41.7 % LV Ejection Fraction 2C AL 44.3 % LA Diameter 4.0 cm IVC Diameter 2.4 cm DOPPLER AV Peak Velocity 113.0 cm/s LVOT Peak Velocity 82.0 cm/s AV Area Cont Eq vti 2.6 cm squared AV Area Cont Eq pk 2.4 cm squared MV Area PHT 5.0 cm squared Mitral E to A Ratio 2.3 MV E' Velocity 54.5 cm/s Mitral E to MV E' Ratio 5.3 Mitral E to LV E' Lateral Ratio 4.9 Mitral E to LV E' Septal Ratio 5.8 TR Peak Velocity 196.5 cm/s TR Peak Gradient 15.4 mmHg TV Peak E Velocity 55.0 cm/s Right Atrial Pressure 3.0 mmHg Pulmonary Artery Systolic Pressu 18.4 mmHg FINDINGS Left Ventricle Normal left ventricular size with diminished ejection fraction of 45%(visual). Diffuse hypokinesia of the left ventricle. Patient was found to be in atrial fibrillation during the study. Right Ventricle The right ventricle is normal in size and function. Right Atrium Possibly normal size Left Atrium Possibly normal size Mitral Valve Trace mitral valve regurgitation. Aortic Valve No gross abnormalities noted Tricuspid Valve No gross abnormalities noted Pulmonic Valve No gross abnormalities noted Pericardium No pericardial effusion. Aorta Normal aortic annulus size. IVC Mildly dilated inferior vena cava CONCLUSIONS Normal left ventricular size with diminished ejection fraction of 45%(visual). Diffuse hypokinesia of the left ventricle. Patient was found to be in atrial fibrillation during the study. Trace mitral valve regurgitation. There is no pericardial effusion. Estimated pulmonary artery peak systolic pressure of 18 mmHg Technically difficult study because of the poor ultrasonic window. Compared to the study from 05/08/2022 there is slight drop in the LV ejection fraction Dr Navneet Huang MD [facility] (Electronically Signed) Final Date: 08 August 2022 22:53 S
--- NOTE | 2022-08-08 17:29 | PM.PN ---
Subjective Subjective: .Patient continues to be tachycardic. Blood pressure is stable. Vitals/I&O/Wt Last Vital Signs Temp 98.2 F 08/08/22 04:00 Pulse 127 H 08/08/22 16:00 Resp 24 H 08/08/22 16:00 BP 123/88 08/08/22 16:00 Pulse Ox 92 08/08/22 16:00 O2 Del Method 08/08/22 10:24 08/08/22 08/08/22 08/08/22 06:59 14:59 22:59 Intake Total 1303.625 / 4216.000 750 / 750 Output Total 750 / 750 Balance 553.625 / 3466.000 750 / 750 Weight last 48 hrs Weight 215 lb 12.8 oz Weight 210 lb Physical Exam Narrative: GENERAL: Patient is alert, awake and oriented x3. [] NECK: No jugular vein distension. [] HEENT: No cyanosis. No icterus. No pallor. [] HEART: Tachycardic, irregularly irregular LUNGS: Clear to auscultate bilaterally. [] CENTRAL NERVOUS SYSTEM: Grossly nonfocal. [] EXTREMITIES: Lower extremities with 1+ edema bilaterally. Pulses palpable in the lower extremities, both dorsalis pedis and posterior tibial. [] Urinary Catheter Management: Haq: Cath Placed During This Visit: yes Reason for Continuing Indwelling Catheter: Accurate Measurement of Urinary Output in Critically Ill Patients Urinary Catheter Date of Insertion: 08/08/22 Urinary Catheter Time of Insertion: 05:30 Data 08/08/22 03:45 08/08/22 03:45 A&P Assessment and plan (1) Atrial fibrillation: (2) Hypotension: (3) Acute kidney injury: (4) Hypertension: Qualifiers: Hypertension type: essential hypertension Qualified Code(s): I10 - Essential (primary) hypertension Plan Patient continues to be tachycardic. Amiodarone 400mg BID We will uptitrate metoprolol to 37.5 mg twice daily. Echo shows normal LV systolic function. Thank you for involving us with care of this patient. We will continue to follow. Please call with questions Attestations Medical Necessity Statement*: Care expected to cross 2 midnights. Coding Level of Care Code Acute Maintenance Planner for [facility] Diagnoses Atrial fibrillation I48.91 Hypotension I95.9 Acute kidney injury N17.9 Hypertension I10 Hypertension type: essential hypertension
--- NOTE | 2022-08-08 17:45 | PC.NURSE ---
Shift Summary: HR improved majority of day with po orders per SEP, this evening HR 140s to 150s, Dr. Norris gave order to restart Amio drip at 0.5, patient remained asymptomatic of HR
[2022-08-08] MEDS: metoprolol tartrate 25 mg Tablet 37.5 MG PO (20:13)
[2022-08-08] MEDS: acetaminophen 325 mg Tablet 650 MG PO (21:39)
--- NOTE | 2022-08-08 23:43 | PC.NURSE ---
Amiodarone Upon assessment of patient, amiodarone drip administering at 0.5 mg/min while MAR displays 1 mg/min. MAR updated to display administration at that time. After processing the transfer orders, amiodarone drip discontinued; D/C verified with Dr. Oliveira. Medication stopped per SEP.
[2022-08-09] VITALS (52 sets, daily range): BP systolic 99–140; BP diastolic 63–101; PULSE 97–170; RESP 8–29; TEMP 36.9; O2SAT 85–100; BMI 30.2
[2022-08-09] MEDS: heparin 5,000 unit/mL INJ 1 mL 5000 UNIT SUBCUT (03:06)
[2022-08-09] MEDS: pantoprazole 40 mg SDV IVP ×2 (03:06→14:40)
[2022-08-09 04:06] LABS: Basophils % 0.3 %; Eosinophils % 0.7 %; Hematocrit 35.8 % (42.0-52.0); Hemoglobin 11.1 g/dL (11.7-16.6); Lymphocytes # 0.4 10^3/uL (0.8-4.8); Lymphocytes % 6.9 %; Mean Corpuscular Hemoglobin 34.9 pg (28.0-34.0); Mean Platelet Volume 11.3 fL (7.4-10.4); Monocytes # 0.8 10^3/uL (0.2-0.9); Neutrophils # 4.66 10^3/uL (1.8-7.7); Neutrophils % 78.4 %; Nucleated Red Blood Cells % 0 %; Platelet Count 214 10^3/cmm (130-400); Red Blood Count 3.18 10^6/uL (4.1-5.3); Red Cell Distribution Width 14.3 % (12.1-15.1); White Blood Count 5.9 10^3/uL (4.0-10.0)
[2022-08-09 04:09] LABS: Mean Corpuscular Volume 112.6 fl (80-94)
[2022-08-09 04:21] LABS: Anion Gap 17.7 (5-19); Blood Urea Nitrogen 19 mg/dL (8-23); Calcium 6.5 mg/dL (8.5-10.5); Carbon Dioxide 17 mmol/L (22-29); Chloride 101 mmol/L (98-107); Glomerular Filtration Rate 96.1 mL/min (90-130); Glucose 80 mg/dL (65-115); Magnesium 1.2 mg/dL (1.7-2.3); Osmolality Calculated 275 mOsm/kg (285-295); Potassium 3.7 mmol/L (3.5-5.1); Sodium 132 mmol/L (136-145)
[2022-08-09] MEDS: acetaminophen 325 mg Tablet 650 MG PO ×2 (05:35→22:27)
[2022-08-09] MEDS: benzonatate 100 mg Capsule PO (05:35)
--- NOTE | 2022-08-09 05:55 | PC.NURSE ---
Amiodarone drip Patient's HR maintaining more in the 130-140s. Dr. Oliveira informed and telephone order received to restart amio drip at 0.5 mg/min. See MAR for administration.
--- NOTE | 2022-08-09 07:17 | PM.PN ---
Subjective Subjective: Still in A. fib with RVR heart rates in 140s to 150 bpm range. Denies chest pain or significant shortness of breath. His amiodarone drip was stopped last night and reportedly heart rates were better but this morning had to be restarted. Vitals/I&O/Wt Last Vital Signs Temp 98.4 F 08/09/22 04:00 Pulse 128 H 08/09/22 04:30 Resp 21 H 08/09/22 04:30 BP 104/83 08/09/22 03:00 Pulse Ox 97 08/09/22 04:30 O2 Del Method 08/09/22 04:00 08/08/22 08/09/22 08/09/22 22:59 06:59 14:59 Intake Total 2144.162 / 2894.162 465 / 3359.162 Output Total 950 / 950 625 / 1575 Balance 1194.162 / 1944.162 -160 / 1784.162 Weight last 48 hrs Weight 216 lb 6.4 oz Weight 215 lb 12.8 oz Weight 210 lb Physical Exam Narrative: GENERAL: Patient is alert, awake and oriented x3. [] NECK: No jugular vein distension. [] HEENT: No cyanosis. No icterus. No pallor. [] HEART: Tachycardic, irregularly irregular LUNGS: Clear to auscultate bilaterally. [] CENTRAL NERVOUS SYSTEM: Grossly nonfocal. [] EXTREMITIES: Lower extremities with 1+ edema bilaterally. Pulses palpable in the lower extremities, both dorsalis pedis and posterior tibial. [] Urinary Catheter Management: Haq: Cath Placed During This Visit: yes Reason for Continuing Indwelling Catheter: Accurate Measurement of Urinary Output in Critically Ill Patients Urinary Catheter Date of Insertion: 08/08/22 Urinary Catheter Time of Insertion: 05:30 Data 08/09/22 03:33 08/09/22 03:33 A&P Assessment and plan (1) Atrial fibrillation: (2) Hypotension: (3) Acute kidney injury: (4) Hypertension: Qualifiers: Hypertension type: essential hypertension Qualified Code(s): I10 - Essential (primary) hypertension Plan Patient continues to be tachycardic. Continue amiodarone drip. Uptitrate metoprolol to 50 mg twice daily. We will started digoxin load as renal function has normalized. Echo shows normal LV systolic function. Thank you for involving us with care of this patient. We will continue to follow. Please call with questions Attestations Medical Necessity Statement*: Care expected to cross 2 midnights. Coding Level of Care Code Acute Microarray Analyst for [facility] Diagnoses Atrial fibrillation I48.91 Hypotension I95.9 Acute kidney injury N17.9 Hypertension I10 Hypertension type: essential hypertension
--- NOTE | 2022-08-09 07:25 | PC.NURSE ---
Morphine Patient complaining of pain in his joints. Tylenol administered per SEP, yet patient states pain still present and undiminished. Dr. Oliveira contacted and order received for 1 mg morphine IVp Q6H PRN for pain.
[2022-08-09] MEDS: magnesium sulfate premix 4 GM/100 ML PREMIX IV (08:00)
[2022-08-09] MEDS: morphine 4 mg/mL SDV 1 mL 1 MG IVP ×3 (08:46→21:11)
[2022-08-09] MEDS: metoprolol tartrate 25 mg Tablet 37.5 MG PO ×2 (08:47→21:11)
[2022-08-09] MEDS: ondansetron 2 mg/ML SDV 2 mL 4 MG IVP (08:47)
[2022-08-09] MEDS: amiodarone 200 mg Tablet 400 MG PO ×2 (08:47→17:11)
[2022-08-09] MEDS: thiamine 100 mg Tablet PO (08:48)
[2022-08-09] MEDS: multivitamin therapeutic Tablet 1 TAB PO (08:48)
[2022-08-09] MEDS: folic acid 1 mg Tablet PO (08:48)
[2022-08-09] MEDS: tamsulosin 0.4 mg Capsule PO ×2 (08:48→17:12)
[2022-08-09 09:03] LABS: Digoxin 0.3 ng/mL (0.6-1.2)
[2022-08-09] MEDS: digoxin 250 mcg/ml INJ 2 mL 500 MCG IVP (09:08)
--- NOTE | 2022-08-09 09:42 | PC.NURSE ---
Dr. Norris at bedside observed HR 140s despite being on amio drip, gave order for Digoxin per MAR
--- NOTE | 2022-08-09 10:23 | PC.CHAP ---
Pastoral Care Encounter/Spiritual Assessment Type of Contact [] Declined kiln setter visit [] Patient/Family/Request visit [] Outpatient visit [] Follow-up visit [] Physician referral [] Code/Alert [x] Routine visit [] Staff referral [] Actively dying [x] Patient sleeping [] Family support [] [] Out of room [] Palliative care [] [] Receiving care in room [] Pre-surgical visit [] Trauma [] Long length of stay [x] ICU visit [] Other: Relational/Emotional Strength [] Patient feels connected with others/family/visitors/staff [] Distress [] Loneliness/isolation [] Abandonment Spirituality of Patient [] Person of Michelle [] Attends Christian of their Michelle [] Believes in Prayer [] Reads Bible or Taoist materials [] There are Spiritual issues to be addressed Traveling Sales Representative Interventions [x] Prayer [] Active listening [] Non-anxious presence [] Spiritual/emotional support [] Crisis/trauma care [] Spiritual counseling [] Bereavement support [] Provided bereavement packet [] Provided Bible/devotional materials [] Provided toy/stuffed animal, coloring book to patient or family member [] Provided Communion [] Anointing/[place] [] Salvation [x] Completed spiritual assessment [] Other: Impact on Illness or Injury [] Angry [] Fearful [] Anxious [] Often cries [] Exhaustion [] Unable to work [] Unable to attend scientologist [] Unable to walk/stand [] Unable to read [] Unable to drive [] Unable to eat/drink [] Unable to sleep [] Unable to be with family [] Patient intubated [] Other: Summary Time spent with patient
--- NOTE | 2022-08-09 11:54 | P.PN_ITS ---
Subjective Subjective: Ethan reports he is doing okay. He would like to get home soon. He is said his heart rate is not controlled currently. Cardiology has seen him this morning, and added digoxin. Medications: Reviewed: Yes Vitals/I&O/Wt Last Vital Signs Temp 98.4 F 08/09/22 04:00 Pulse 111 H 08/09/22 10:00 Resp 21 H 08/09/22 10:00 BP 110/75 08/09/22 10:00 Pulse Ox 98 08/09/22 09:30 O2 Del Method 08/09/22 04:00 08/08/22 08/09/22 08/09/22 22:59 06:59 14:59 Intake Total 2144.162 / 2894.162 465 / 3359.162 450 / 450 Output Total 950 / 950 625 / 1575 Balance 1194.162 / 1944.162 -160 / 1784.162 450 / 450 Weight last 48 hrs Weight 98.157 kg Weight 97.885 kg Physical Exam Narrative: General exam no distress currently Neck is supple no lymphadenopathy or thyromegaly Cardiovascular irregular, irregular with accelerated rate Lungs clear no wheezing or crackles Abdomen is soft nontender positive bowel sounds. No obvious organomegaly exam demonstrates Haq Extremities no cyanosis clubbing or edema, cap refill brisk Skin no rash Urinary Catheter Management: Haq: Cath Placed During This Visit: yes Reason for Continuing Indwelling Catheter: Accurate Measurement of Urinary Output in Critically Ill Patients Urinary Catheter Date of Insertion: 08/08/22 Urinary Catheter Time of Insertion: 05:30 Data 08/09/22 03:33 08/09/22 03:33 A&P Assessment and plan (1) Atrial fibrillation: Patient presents with atrial fibrillation with rapid ventricular rate. From my understanding he got a Cardizem bolus, and a Cardizem drip that was not successful in controlling his heart rate. Amiodarone was then Initiated. He had previously stopped his Cardizem at least several weeks ago. Patient stopped his medication secondary to low blood pressure. Will place him on low-dose Eliquis considering his risk factors Cardiology consultation appreciated Currently on amiodarone, being loaded with digoxin, and receiving metoprolol Echo demonstrates EF of 45%, diffuse hypokinesis (2) Acute kidney injury: Patient presents with acute kidney injury. Is intractable nausea and vomiting might play a part He has been given fluid boluses in the emergency department and will continue IV fluids, with close follow-up of creatinine Check CT abdomen and pelvis demonstrated no obstruction Urinalysis unrevealing Renal function is improving with hydration (3) Hypokalemia: Resolved after supplementation (4) Hypomagnesemia: Replete again (5) Hypotension: Patient with hypotension in the emergency department. Following fluid resuscitation blood pressures been adequate (6) Intractable nausea and vomiting: Patient with history of some intractable nausea vomiting the last several weeks He does have history of gastric bypass CT abdomen and pelvis without contrast demonstrated no obstruction Initiate diet (7) Macrocytosis: Folate level is low He has history of gastric bypass, as well as alcoholism Supplement thiamine, folate TSH was checked and normal (8) Alcohol abuse: Encourage abstinence [facility] protocol. High risk for withdrawal although I do not believe he is withdrawing currently. Plan Anemia. Stable today History of carotid artery disease and right carotid occlusion Multiple other medical problems as outlined in past medical history Full code Heparin for DVT prophylaxis Attestations Medical Necessity Statement*: Requires continued hospitalization secondary to A. fib with RVR, with difficult to control rate, on multiple medications as well as amiodarone drip. Coding Level of Care Code Acute Insurance Account Executive for [facility] Diagnoses Atrial fibrillation I48.91 Acute kidney injury N17.9 Hypokalemia E87.6 Hypomagnesemia E83.42 Hypotension I95.9 Intractable nausea and vomiting R11.2 Macrocytosis D75.89 Alcohol abuse F10.10
[2022-08-09] MEDS: digoxin 250 mcg/ml INJ 2 mL IVP ×2 (14:39→20:05)
[2022-08-09] MEDS: sodium chloride 0.9% 1,000 ML 75 ML IV (18:22)
[2022-08-09] MEDS: apixaban 5 mg Tablet 2.5 MG PO (20:04)
--- NOTE | 2022-08-09 21:00 | PC.NURSE ---
Cold Compress Upon assessment of patient's IV, patient's left forearm swollen and painful to the touch. IV stopped, amiodarone and fluids moved to right forearm IV, and pressure dressing applied. Pharmacy consulted; recommendation from source to apply cold compress and inquire about nitro paste application. Cold compress applied and Dr. Oliveira contacted; no new orders received.
[2022-08-10] VITALS (55 sets, daily range): BP systolic 95–136; BP diastolic 63–97; PULSE 77–157; RESP 16–29; TEMP 36.9–38.8; O2SAT 72–99; BMI 30.9
[2022-08-10] MEDS: pantoprazole 40 mg SDV IVP (02:08)
[2022-08-10] MEDS: morphine 4 mg/mL SDV 1 mL 1 MG IVP (03:13)
[2022-08-10 04:29] LABS: Basophils % 0.2 %; Hematocrit 29.3 % (42.0-52.0); Hemoglobin 9.7 g/dL (11.7-16.6); Lymphocytes # 0.3 10^3/uL (0.8-4.8); Lymphocytes % 3.1 %; Mean Corpuscular HGB Conc 33.1 g/dL (30.0-36.0); Mean Corpuscular Hemoglobin 34.9 pg (28.0-34.0); Mean Corpuscular Volume 105.4 fl (80-94); Mean Platelet Volume 11.2 fL (7.4-10.4); Monocytes # 1.4 10^3/uL (0.2-0.9); Monocytes % 16.7 %; Neutrophils # 6.63 10^3/uL (1.8-7.7); Nucleated Red Blood Cells % 0 %; Platelet Count 199 10^3/cmm (130-400); Red Blood Count 2.78 10^6/uL (4.1-5.3); Red Cell Distribution Width 14.1 % (12.1-15.1); White Blood Count 8.4 10^3/uL (4.0-10.0)
[2022-08-10 04:49] LABS: Alanine Aminotransferase 7 U/L (0-41); Albumin Level 2.4 g/dL (3.5-5.2); Alkaline Phosphatase 63 U/L (40-130); Anion Gap 17.7 (5-19); Aspartate Amino Transferase 13 U/L (0-40); Blood Urea Nitrogen 13 mg/dL (8-23); Calcium 6.5 mg/dL (8.5-10.5); Carbon Dioxide 19 mmol/L (22-29); Chloride 102 mmol/L (98-107); Globulin 2.8 g/dL (1.3-4.6); Glomerular Filtration Rate 112.1 mL/min (90-130); Glucose 96 mg/dL (65-115); Osmolality Calculated 280 mOsm/kg (285-295); Potassium 3.7 mmol/L (3.5-5.1); Sodium 135 mmol/L (136-145); Total Bilirubin 0.9 mg/dL (0.15-1.2); Total Protein 5.2 g/dL (6.6-8.7)
--- NOTE | 2022-08-10 07:32 | P.PN_ITS ---
Subjective Subjective: Patient's heart rate is improved compared to before. Vitals/I&O/Wt Last Vital Signs Temp 98.5 F 08/10/22 04:00 Pulse 125 H 08/10/22 06:00 Resp 24 H 08/10/22 06:00 BP 114/89 08/10/22 06:00 Pulse Ox 99 08/10/22 06:00 O2 Del Method 08/10/22 04:00 08/09/22 08/10/22 08/10/22 22:59 06:59 14:59 Intake Total 927.5 / 2312.5 7.484 / 2319.984 Output Total 850 / 850 950 / 1800 Balance 77.5 / 1462.5 -942.516 / 519.984 Weight last 48 hrs Weight 222 lb Weight 216 lb 6.4 oz Physical Exam Narrative: GENERAL: Patient is alert, awake and oriented x3. [] NECK: No jugular vein distension. [] HEENT: No cyanosis. No icterus. No pallor. [] HEART: Tachycardic, irregularly irregular LUNGS: Clear to auscultate bilaterally. [] CENTRAL NERVOUS SYSTEM: Grossly nonfocal. [] EXTREMITIES: Lower extremities with 1+ edema bilaterally. Pulses palpable in the lower extremities, both dorsalis pedis and posterior tibial. [] Urinary Catheter Management: Haq: Cath Placed During This Visit: yes Reason for Continuing Indwelling Catheter: Accurate Measurement of Urinary Out put in Critically Ill Patients Urinary Catheter Date of Insertion: 08/08/22 Urinary Catheter Time of Insertion: 05:30 Data 08/10/22 03:53 08/10/22 03:53 A&P Assessment and plan (1) Atrial fibrillation: (2) Hypotension: (3) Acute kidney injury: (4) Hypertension: Qualifiers: Hypertension type: essential hypertension Qualified Code(s): I10 - Essential (primary) hypertension Plan Switch amiodarone gtt to PO amiodarone 400mg bid We will start digoxin 250mcg daily. Uptitrate metoprolol to 50mg bid Continue tele monitoring Replace electrolytes as needed Started on eliquis 2.5 mg bid (lower dose because of falls risk) Echo shows normal LV systolic function. Thank you for involving us with care of this patient. We will continue to follow. Please call with questions Attestations Medical Necessity Statement*: Care expected to cross 2 midnights Coding Level of Care Code Acute Code for Chg Fwd Diagnoses Atrial fibrillation I48.91 Hypotension I95.9 Acute kidney injury N17.9 Hypertension I10 Hypertension type: essential hypertension
--- NOTE | 2022-08-10 07:46 | PC.NURSE ---
Pt A Ox3. Resp even and non-labored no sob or distress noted. Pt c/o pain 9/10 in right knee. IV patent no redness or swelling noted. Pt continues to be in Afib/RVR hr 110 -136. Pt has no c/o chest pain at the present time. Pt on Amiodarone drip at 0.5mg/min or 16.7 ml/hr. Pt has IV NS at 50ml/hr. No needs voiced at the present time. Call light in reach. Will cont to monitor.
[2022-08-10] MEDS: amiodarone 200 mg Tablet 400 MG PO ×2 (09:01→17:33)
[2022-08-10] MEDS: folic acid 1 mg Tablet PO (09:02)
[2022-08-10] MEDS: multivitamin therapeutic Tablet 1 TAB PO (09:02)
[2022-08-10] MEDS: tamsulosin 0.4 mg Capsule PO ×2 (09:02→17:34)
[2022-08-10] MEDS: thiamine 100 mg Tablet PO (09:02)
[2022-08-10] MEDS: apixaban 5 mg Tablet 2.5 MG PO ×2 (09:03→20:27)
[2022-08-10] MEDS: metoprolol tartrate 50 mg Tablet PO ×2 (09:05→20:27)
[2022-08-10] MEDS: magnesium sulfate premix 4 GM/100 ML PREMIX IV (09:24)
--- NOTE | 2022-08-10 10:23 | PM.PN ---
Subjective Subjective: Ethan reports he is feeling okay but discourages his heart rate is still high. No chest discomfort. Has chronic arthritis right knee, which hurts him some. Medications: Reviewed: Yes Vitals/I&O/Wt Last Vital Signs Temp 99.7 F H 08/10/22 07:32 Pulse 107 H 08/10/22 08:14 Resp 17 08/10/22 07:32 BP 136/97 08/10/22 07:32 Pulse Ox 97 08/10/22 08:14 O2 Del Method 08/10/22 08:14 08/09/22 08/10/22 08/10/22 22:59 06:59 14:59 Intake Total 927.5 / 2312.5 7.484 / 2319.984 Output Total 850 / 850 950 / 1800 Balance 77.5 / 1462.5 -942.516 / 519.984 Weight last 48 hrs Weight 100.698 kg Weight 98.157 kg Physical Exam Narrative: General exam no distress currently Neck is supple no lymphadenopathy or thyromegaly Cardiovascular irregular, irregular with accelerated rate Lungs clear no wheezing or crackles Abdomen is soft nontender positive bowel sounds. No obvious organomegaly exam demonstrates Haq Extremities no cyanosis clubbing or edema, cap refill brisk. Right knee with no erythema. Mild to moderate joint effusion noted. Skin no rash Urinary Catheter Management: Haq: Cath Placed During This Visit: yes Reason for Continuing Indwelling Catheter: Accurate Measurement of Urinary Output in Critically Ill Patients Urinary Catheter Date of Insertion: 08/08/22 Urinary Catheter Time of Insertion: 05:30 Data 08/10/22 03:53 08/10/22 03:53 A&P Assessment and plan (1) Atrial fibrillation: Patient presents with atrial fibrillation with rapid ventricular rate. From my understanding he got a Cardizem bolus, and a Cardizem drip that was not successful in controlling his heart rate. Amiodarone was then Initiated. He had previously stopped his Cardizem at least several weeks ago. Patient stopped his medication secondary to low blood pressure. Will place him on low-dose Eliquis considering his risk factors. Risk and benefits discussed with the patient Cardiology consultation appreciated Currently on amiodarone drip Digoxin load per cardiology, and daily dosing Increase metoprolol to 50 mg twice daily Echo demonstrates EF of 45%, diffuse hypokinesis (2) Acute kidney injury: Patient presents with acute kidney injury. Is intractable nausea and vomiting might play a part He has been given fluid boluses in the emergency department and will continue IV fluids, with close follow-up of creatinine Check CT abdomen and pelvis demonstrated no obstruction Urinalysis unrevealing Renal function is back to baseline (3) Hypokalemia: Resolved after supplementation (4) Hypomagnesemia: Replete again. Recheck this afternoon and likely will need further supplementation (5) Hypotension: Patient with hypotension in the emergency department. Following fluid resuscitation blood pressures been adequate (6) Intractable nausea and vomiting: Patient with history of some intractable nausea vomiting the last several weeks He does have history of gastric bypass CT abdomen and pelvis without contrast demonstrated no obstruction Initiate diet (7) Macrocytosis: Folate level is low He has history of gastric bypass, as well as alcoholism Supplement thiamine, folate TSH was checked and normal (8) Alcohol abuse: Encourage abstinence Discontinue [facility] protocol. No evidence of withdrawal Plan Anemia. Stable today History of carotid artery disease and right carotid occlusion Multiple other medical problems as outlined in past medical history Full code Eliquis for DVT prophylaxis Attestations Medical Necessity Statement*: Needs further hospitalization for adjustment of medication secondary to uncontrolled rate with atrial fibrillation Coding Level of Care Code Acute Automatic Door Mechanic for [facility] F[facility] Diagnoses Atrial fibrillation I48.91 Acute kidney injury N17.9 Hypokalemia E87.6 Hypomagnesemia E83.42 Hypotension I95.9 Intractable nausea and vomiting R11.2 Macrocytosis D75.89 Alcohol abuse F10.10
[2022-08-10] MEDS: digoxin 250 mcg Tablet PO (11:07)
[2022-08-10] MEDS: oxyCODONE 5 mg IR Tab/Cap PO ×2 (13:17→18:11)
--- NOTE | 2022-08-10 13:47 | XRR_ITS ---
PROCEDURE INFORMATION: Exam: XR Chest Exam date and time: 08/10/2022 1:52 PM Age: 67 years old Clinical indication: Fever; Prior surgery; Surgery type: Gastric bipass TECHNIQUE: Imaging protocol: Radiologic exam of the chest. Views: 1 view. COMPARISON: CR XR chest 1V portable [id number] 08/07/2022 9:27 AM FINDINGS: Lungs: Left lower lobe atelectasis is seen. No consolidation. Pleural spaces: Unremarkable. No pleural effusion. No pneumothorax. Heart/Mediastinum: Unremarkable. No cardiomegaly. Bones/joints: Unremarkable. XR/XR chest 1V portable [id number] IMPRESSION: No acute findings.
--- NOTE | 2022-08-10 13:53 | XRR_ITS ---
PROCEDURE INFORMATION: Exam: XR Right Knee Exam date and time: 08/10/2022 1:55 PM Age: 67 years old Clinical indication: Pain; Swelling or effusion of joint; Knee; Right; Additional info: Pain, swelling TECHNIQUE: Imaging protocol: Radiologic exam of the Right knee. Views: 1 or 2 views. COMPARISON: CT knee RT [facility] 05/24/2022 7:12 AM FINDINGS: Bones/joints: Narrowing of the medial compartment and the patellofemoral compartment is seen corresponding to severe osteoarthritis. No acute bony abnormalities seen. Soft tissues: Large soft tissue effusion is seen in the suprapatellar bursa XR/XR knee RT 1-2V [id number] IMPRESSION: 1. No acute bone abnormality. 2. Severe osteoarthritis 3. Large suprapatellar bursa effusion
[2022-08-10] MEDS: cefTRIAXone 1,000 MG in sodium chloride 0.9% (plus) 50 ML 100 MG IV (15:28)
[2022-08-10] MEDS: azithromycin 500 MG in sodium chloride 0.9% 250 ML 250 MG IV (15:32)
[2022-08-10] MEDS: acetaminophen 325 mg Tablet 650 MG PO (16:37)
[2022-08-10 16:40] LABS: Magnesium 1.5 mg/dL (1.7-2.3)
[2022-08-10 17:08] LABS: Bilirubin Urine Neg (Negative); Blood Urine 2+ (Negative); Glucose Urine UA Norm (Normal); Ketones Urine Negative (Negative); Leukocyte Esterase Urine Negative (Negative); Nitrate Urine Negative (Negative); Protein Urine Neg (Negative); Urine Appearance Clear (CLEAR); Urine Color Yellow (Yellow); Urobilinogen Urine Neg (Negative); pH Urine 5 (5-7)
[2022-08-10 17:09] LABS: Add Urine Culture? No; Mucus Urine 2+ /hpf; Squamous Epithelial Cell Urine 0-4 /hpf (0-5)
[2022-08-10 17:24] LABS: Influenza A by IFA negative (Negative); Influenza B by IFA negative (Negative)
[2022-08-10] MEDS: pantoprazole DR 40 mg Tablet PO (17:33)
--- NOTE | 2022-08-10 17:55 | PC.NURSE ---
SHift SUmmary: Uneventful shift. Patient transitioned form IV amiodarone to PO. Continues to be in AFIB with a rate between 100-120, asymptomatic. Patient has had complaints of pain to the right knee and has received prn oxycodone. CUrrently being tested for covid and flue due to developing a fever of 101.9 today.
[2022-08-10 18:50] LABS: Adenovirus Not Detected (NOT DETECT); Chlamydia Pneumoniae Not Detected (NOT DETECT); Coronavirus 229E,HKU1,NL63,OC4 Not Detected (NOT DETECT); Human Metapneumovirus Not Detected (NOT DETECT); Human Rhinovirus/Enterovirus Not Detected (NOT DETECT); Influenza A Not Detected (NOT DETECT); Influenza A H1 Not Detected (NOT DETECT); Influenza A H1-2009 Not Detected (NOT DETECT); Influenza A H3 Not Detected (NOT DETECT); Influenza B Not Detected (NOT DETECT); Mycoplasma Pneumoniae Not Detected (NOT DETECT); Parainfluenza Virus Type 1 Not Detected (NOT DETECT); Parainfluenza Virus Type 2 Not Detected (NOT DETECT); Parainfluenza Virus Type 3 Not Detected (NOT DETECT); Parainfluenza Virus Type 4 Not Detected (NOT DETECT); Respiratory Syncytial Virus A Not Detected (NOT DETECT); Respiratory Syncytial Virus B Not Detected (NOT DETECT); SARS-COV-2 Not Detected (NOT DETECT)
[2022-08-10] MEDS: magnesium sulfate premix 2 GM/50 ML PIGGYBACK IV (19:50)
[2022-08-10] MEDS: hyDROXYzine 25 mg Capsule PO (20:26)
[2022-08-11] VITALS (44 sets, daily range): BP systolic 73–140; BP diastolic 47–90; PULSE 87–139; RESP 17–30; TEMP 36.2–38.1; O2SAT 85–99
[2022-08-11 03:51] LABS: Basophils % 0.2 %; Eosinophils % 0.1 %; Hematocrit 28.8 % (42.0-52.0); Hemoglobin 9.4 g/dL (11.7-16.6); Lymphocytes # 0.4 10^3/uL (0.8-4.8); Lymphocytes % 3.5 %; Mean Corpuscular HGB Conc 32.6 g/dL (30.0-36.0); Mean Corpuscular Hemoglobin 34.7 pg (28.0-34.0); Mean Corpuscular Volume 106.3 fl (80-94); Mean Platelet Volume 11.3 fL (7.4-10.4); Monocytes # 1.4 10^3/uL (0.2-0.9); Monocytes % 13.5 %; Nucleated Red Blood Cells % 0 %; Platelet Count 195 10^3/cmm (130-400); Red Blood Count 2.71 10^6/uL (4.1-5.3); Red Cell Distribution Width 14.3 % (12.1-15.1)
[2022-08-11 04:43] LABS: Anion Gap 16.9 (5-19); Blood Urea Nitrogen 10 mg/dL (8-23); Calcium 6.8 mg/dL (8.5-10.5); Carbon Dioxide 20 mmol/L (22-29); Chloride 102 mmol/L (98-107); Glomerular Filtration Rate 112.1 mL/min (90-130); Glucose 104 mg/dL (65-115); Magnesium 1.6 mg/dL (1.7-2.3); Osmolality Calculated 279 mOsm/kg (285-295); Potassium 3.9 mmol/L (3.5-5.1); Sodium 135 mmol/L (136-145)
--- NOTE | 2022-08-11 06:41 | P.PN_ITS ---
Subjective Subjective: Ethan reports he is feeling better. Knee is hurting less. Occasional cough. Elevated temperature episodes of decreased. Medications: Reviewed: Yes Vitals/I&O/Wt Last Vital Signs Temp 98.3 F 08/11/22 05:30 Pulse 100 08/11/22 06:00 Resp 25 H 08/11/22 06:00 BP 124/82 08/11/22 06:00 Pulse Ox 92 08/11/22 06:00 O2 Del Method 08/10/22 14:45 08/10/22 08/10/22 08/11/22 14:59 22:59 06:59 Intake Total 100 / 100 2406.369 / 2506.369 Output Total 400 / 400 200 / 600 750 / 1350 Balance -300 / -300 2206.369 / 1906.369 -750 / 1156.369 Weight last 48 hrs Weight 100.607 kg Weight 100.698 kg Physical Exam Narrative: General exam no distress currently Neck is supple no lymphadenopathy or thyromegaly Cardiovascular irregular, irregular with accelerated rate Lungs clear no wheezing or crackles Abdomen is soft nontender positive bowel sounds. No obvious organomegaly exam demonstrates Haq Extremities no cyanosis clubbing or edema, cap refill brisk. Right knee with no erythema. Mild to moderate joint effusion noted. Skin no rash Urinary Catheter Management: Haq: Cath Placed During This Visit: yes Reason for Continuing Indwelling Catheter: Accurate Measurement of Urinary Output in Critically Ill Patients Urinary Catheter Date of Insertion: 08/08/22 Urinary Catheter Time of Insertion: 05:30 Data 08/11/22 03:30 08/11/22 03:30 Micro: Microbiology 08/10/22 15:08 Blood Culture - Preliminary Blood SPECIMEN COLLECTED 08/10/22 15:12 Blood Culture - Preliminary Blood SPECIMEN COLLECTED A&P Assessment and plan (1) Atrial fibrillation: Patient presents with atrial fibrillation with rapid ventricular rate. From my understanding he got a Cardizem bolus, and a Cardizem drip that was not successful in controlling his heart rate. Amiodarone was then Initiated. He had previously stopped his Cardizem at least several weeks ago. Patient stopped his medication secondary to low blood pressure. Will place him on low-dose Eliquis considering his risk factors. Risk and benefits discussed with the patient Cardiology consultation appreciated Currently on amiodarone, digoxin, metoprolol 50 mg twice daily. Will discuss with cardiology whether beta-mery should be increased further as heart rate is still not under ideal control. When patient awakens heart rate is approximately 120 Echo demonstrates EF of 45%, diffuse hypokinesis (2) Acute kidney injury: Patient presents with acute kidney injury. Is intractable nausea and vomiting might play a part He has been given fluid boluses in the emergency department and will continue IV fluids, with close follow-up of creatinine Check CT abdomen and pelvis demonstrated no obstruction Urinalysis unrevealing Renal function is back to baseline (3) Hypokalemia: Resolved after supplementation (4) Hypomagnesemia: Replete again. Recheck this afternoon and likely will need further supplem entation (5) Hypotension: Patient with hypotension in the emergency department. Following fluid resuscitation blood pressures been adequate (6) Intractable nausea and vomiting: Patient with history of some intractable nausea vomiting the last several weeks He does have history of gastric bypass CT abdomen and pelvis without contrast demonstrated no obstruction Initiate diet (7) Macrocytosis: Folate level is low He has history of gastric bypass, as well as alcoholism Supplement thiamine, folate TSH was checked and normal (8) Alcohol abuse: Encourage abstinence Discontinued CIWA protocol. No evidence of withdrawal Plan Fever. Infiltrate noted left lower lobe. Rocephin and azithromycin initiated. Temperature curve decreased. Continue antibiotics currently. Global weakness. Working on nursing facility placement. Anemia. Stable today History of carotid artery disease and right carotid occlusion Multiple other medical problems as outlined in past medical history Full code Eliquis for DVT prophylaxis Attestations Medical Necessity Statement*: Needs continued hospital stay for adjustment of medication secondary to accelerated rate associated with atrial fibrillation. Coding Level of Care Code Acute Code for [facility] Fwd Diagnoses Atrial fibrillation I48.91 Acute kidney injury N17.9 Hypokalemia E87.6 Hypomagnesemia E83.42 Hypotension I95.9 Intractable nausea and vomiting R11.2 Macrocytosis D75.89 Alcohol abuse F10.10
[2022-08-11] MEDS: magnesium sulfate premix 4 GM/100 ML PREMIX IV (07:43)
[2022-08-11] MEDS: multivitamin therapeutic Tablet 1 TAB PO (08:25)
[2022-08-11] MEDS: folic acid 1 mg Tablet PO (08:25)
--- NOTE | 2022-08-11 08:31 | P.PN_ITS ---
Subjective Subjective: Heart rates still fluctuating but have mostly stayed over 100bpm Vitals/I&O/Wt Last Vital Signs Temp 98.3 F 08/11/22 05:30 Pulse 100 08/11/22 07:28 Resp 25 H 08/11/22 06:00 BP 124/82 08/11/22 06:00 Pulse Ox 92 08/11/22 07:28 O2 Del Method 08/11/22 07:28 08/10/22 08/11/22 08/11/22 22:59 06:59 14:59 Intake Total 2406.369 / 2506.369 Output Total 200 / 600 750 / 1350 Balance 2206.369 / 1906.369 -750 / 1156.369 Weight last 48 hrs Weight 221 lb 12.8 oz Weight 222 lb Physical Exam Narrative: GENERAL: Patient is alert, awake and oriented x3. [] NECK: No jugular vein distension. [] HEENT: No cyanosis. No icterus. No pallor. [] HEART: Tachycardic, irregularly irregular LUNGS: Clear to auscultate bilaterally. [] CENTRAL NERVOUS SYSTEM: Grossly nonfocal. [] EXTREMITIES: Lower extremities with 1+ edema bilaterally. Pulses palpable in the lower extremities, both dorsalis pedis and posterior tibial. [] Urinary Catheter Management: Haq: Cath Placed During This Visit: yes Reason for Continuing Indwelling Catheter: Accurate Measurement of Urinary O utput in Critically Ill Patients Urinary Catheter Date of Insertion: 08/08/22 Urinary Catheter Time of Insertion: 05:30 Data 08/11/22 03:30 08/11/22 03:30 Micro: Microbiology 08/10/22 15:08 Blood Culture - Preliminary Blood SPECIMEN COLLECTED 08/10/22 15:12 Blood Culture - Preliminary Blood SPECIMEN COLLECTED A&P Assessment and plan (1) Atrial fibrillation: (2) Hypotension: (3) Acute kidney injury: (4) Hypertension: Qualifiers: Hypertension type: essential hypertension Qualified Code(s): I10 - Essential (primary) hypertension Plan Continue amiodarone 400 mg twice daily and digoxin 250 MCG daily. Will further uptitrate metoprolol to 75 mg twice daily. Continue tele monitoring Replace electrolytes as needed Continue eliquis. DCCV cardioversion is not ideal in this situation but if heart rates are not controlled with maximally tolerated medications, we will consider that. Echo shows normal LV systolic function. Thank you for involving us with care of this patient. We will continue to follow. Please call with questions Attestations Medical Necessity Statement*: Care expected to cross 2 midnights. Coding Level of Care Code Acute Code for [facility] Fwd Diagnoses Atrial fibrillation I48.91 Hypotension I95.9 Acute kidney injury N17.9 Hypertension I10 Hypertension type: essential hypertension
[2022-08-11] MEDS: digoxin 250 mcg Tablet PO (08:56)
[2022-08-11] MEDS: tamsulosin 0.4 mg Capsule PO ×2 (08:57→17:14)
[2022-08-11] MEDS: oxyCODONE 5 mg IR Tab/Cap PO ×2 (08:57→20:28)
[2022-08-11] MEDS: amiodarone 200 mg Tablet 400 MG PO ×2 (08:57→17:14)
[2022-08-11] MEDS: thiamine 100 mg Tablet PO (08:57)
[2022-08-11] MEDS: pantoprazole DR 40 mg Tablet PO ×2 (08:58→17:14)
[2022-08-11] MEDS: apixaban 5 mg Tablet 2.5 MG PO ×2 (08:58→20:27)
--- NOTE | 2022-08-11 10:16 | PC.NURSE ---
PT belongings: wallet and keys placed in biohazard bag and put in the pyxis for safe keeping. Items labeled with patient labels.
[2022-08-11] MEDS: metoprolol tartrate 50 mg Tablet 75 MG PO ×2 (11:18→20:26)
--- NOTE | 2022-08-11 11:46 | PC.NURSE ---
Patient activity. Patient assisted to a wheel chair. Patient is unable to bear weight on right knee due to pain, but patient wanted to sit in a wheel chair and use his legs to push and pull himself around the unit for exercise. Patient moved around robb for about 150 feet, but had to get back to bed due to heart rate. Patient reports pain relief to a tolerabe level with the exercise and has not requested pain medication yet today whereas yesterday he was frequently reporting pain.
[2022-08-11] MEDS: sodium chloride 0.9% 250 ML IV (13:17)
[2022-08-11] MEDS: cefTRIAXone 1,000 MG in sodium chloride 0.9% (plus) 50 ML 100 MG IV (14:51)
[2022-08-11] MEDS: azithromycin 500 MG in sodium chloride 0.9% 250 ML 250 MG IV (15:31)
[2022-08-11] MEDS: acetaminophen 325 mg Tablet 650 MG PO ×2 (15:44→23:22)
--- NOTE | 2022-08-11 17:47 | PC.NURSE ---
Shift SUmmary: Uneventful shift Patient has rested in bed through most of the day, but spent about 2 hours up to a chair, and excercised for about 10 minutes in a wheel chair. Afib is better controlled after starting the higher dose of metoprolol, but blood pressures have been in the 70's systolic if patient gets up out of bed after taking the metoprolol. With increased exercise, patient has reported pain relief to the right knee.
--- NOTE | 2022-08-11 19:26 | PC.NURSE ---
Rhondaet and donavan removed from ICU [facility] to transfer pt from ICU to [facility]. Rhondaet and donavan left w/ NEMESIO Cortez.
[2022-08-12] VITALS (36 sets, daily range): BP systolic 90–115; BP diastolic 61–75; PULSE 68–195; RESP 18–34; TEMP 36.3–37.4; O2SAT 69–100
[2022-08-12 04:23] LABS: Basophils % 0.3 %; Eosinophils # 0.1 10^3/uL (0.0-0.8); Hematocrit 27.8 % (42.0-52.0); Hemoglobin 8.9 g/dL (11.7-16.6); Lymphocytes # 0.4 10^3/uL (0.8-4.8); Lymphocytes % 3.6 %; Mean Corpuscular Hemoglobin 33.8 pg (28.0-34.0); Mean Corpuscular Volume 105.7 fl (80-94); Mean Platelet Volume 11.8 fL (7.4-10.4); Monocytes # 1.2 10^3/uL (0.2-0.9); Monocytes % 11.4 %; Neutrophils # 8.58 10^3/uL (1.8-7.7); Neutrophils % 82.7 %; Nucleated Red Blood Cells % 0 %; Platelet Count 230 10^3/cmm (130-400); Red Blood Count 2.63 10^6/uL (4.1-5.3); Red Cell Distribution Width 14.1 % (12.1-15.1); White Blood Count 10.4 10^3/uL (4.0-10.0)
[2022-08-12 04:46] LABS: Anion Gap 15.3 (5-19); Blood Urea Nitrogen 15 mg/dL (8-23); Calcium 7.9 mg/dL (8.5-10.5); Carbon Dioxide 21 mmol/L (22-29); Chloride 102 mmol/L (98-107); Glomerular Filtration Rate 112.1 mL/min (90-130); Glucose 97 mg/dL (65-115); Magnesium 1.5 mg/dL (1.7-2.3); Osmolality Calculated 281 mOsm/kg (285-295); Potassium 3.3 mmol/L (3.5-5.1); Sodium 135 mmol/L (136-145)
[2022-08-12] MEDS: magnesium sulfate premix 2 GM/50 ML PIGGYBACK IV ×2 (06:19→12:43)
[2022-08-12] MEDS: lidocaine 1% 5 ML in potassium chloride premix 100 ML 26.25 ML IV (08:31)
[2022-08-12] MEDS: amiodarone 200 mg Tablet 400 MG PO ×2 (08:31→17:54)
[2022-08-12] MEDS: metoprolol tartrate 50 mg Tablet 75 MG PO ×2 (08:31→21:42)
[2022-08-12] MEDS: apixaban 5 mg Tablet 2.5 MG PO ×2 (08:33→21:41)
[2022-08-12] MEDS: pantoprazole DR 40 mg Tablet PO ×2 (08:33→17:54)
[2022-08-12] MEDS: digoxin 250 mcg Tablet PO (08:34)
[2022-08-12] MEDS: thiamine 100 mg Tablet PO (08:34)
[2022-08-12] MEDS: multivitamin therapeutic Tablet 1 TAB PO (08:34)
[2022-08-12] MEDS: tamsulosin 0.4 mg Capsule PO ×2 (08:34→17:54)
--- NOTE | 2022-08-12 08:46 | PC.SOCIAL ---
IMM Updated Updated pt on IMM. No questions voiced. Provided pt a copy. Initialed, dated, & timed copy in chart.
[2022-08-12] MEDS: oxyCODONE 5 mg IR Tab/Cap PO ×3 (09:34→21:40)
--- NOTE | 2022-08-12 12:00 | PM.PN ---
Subjective Subjective: Patient endorses pain in his right knee and right ankle. He thinks it might be gout. He denies chest pain, shortness of breath, fevers or chills. Reports appetite is okay. Denies other new complaints. Medications: Reviewed: Yes Vitals/I&O/Wt Last Vital Signs Temp 99.3 F 08/12/22 08:56 Pulse 68 08/12/22 10:00 Resp 25 H 08/12/22 10:00 BP 94/64 08/12/22 10:00 Pulse Ox 94 08/12/22 10:00 O2 Del Method 08/12/22 08:00 O2 Flow Rate 3 08/11/22 18:00 08/11/22 08/12/22 08/12/22 22:59 06:59 14:59 Intake Total 1000 / 1700 120 / 120 Output Total 325 / 675 450 / 1125 Balance 675 / 1025 -450 / 575 120 / 120 Weight last 48 hrs Weight 97 kg Weight 100.607 kg Physical Exam Narrative: General: Patient is awake. Frail appearing. Head: Normocephalic. Atraumatic. EOM intact. Neck: No JVD. Cardiovascular: Irregularly irregular rhythm. Tachycardic. No gallops. No murmurs. Lungs: Clear to auscultation, no use of accessory muscles, no crackles or wheezes. Skin: No jaundice. No rashes. Abdomen: Normal bowel sounds, abdomen soft and nontender. Genito Urinary: Genital exam not performed since complaints not related. Rectal: Rectal exam not performed since no symptoms indicated blood loss. Extremities: No cyanosis or clubbing. Musculoskeletal: Right knee is mildly swollen. Neurological: Moves all 4 extremities. No myoclonus. Urinary Catheter Management: Haq: Cath Placed During This Visit: yes Reason for Continuing Indwelling Catheter: Accurate Measurement of Urinary Output in Critically Ill Patients Urinary Catheter Date of Insertion: 08/08/22 Urinary Catheter Time of Insertion: 05:30 Data 08/12/22 03:15 08/12/22 03:15 Micro: Microbiology 08/10/22 15:12 Blood Culture - Preliminary Blood NEGATIVE TO DATE 08/10/22 15:08 Blood Culture - Preliminary Blood NEGATIVE TO DATE A&P Assessment and plan (1) Atrial fibrillation: Heart rate remains uncontrolled, patient not responding to treatment as intended Cardiology consulted, appreciate recommendations Continuous telemetry monitoring Continue oral loading dose amiodarone Continue apixaban Continue digoxin Continue metoprolol Echo reviewed (2) Community acquired pneumonia: He continues to fever Continue ceftriaxone Continue azithromycin Pulmonary toilet Madelyn Cohen (3) Hypokalemia: Potassium supplementation ordered (4) Hypomagnesemia: Replace with magnesium sulfate (5) Hypotension: Blood pressures remain soft Continue to monitor (6) BPH (benign prostatic hyperplasia): Continue Flomax (7) Macrocytosis: History of alcoholism as well as gastric bypass Continue supplementation with thiamine and folate (8) Alcohol abuse: Encourage abstinence (9) Acute kidney injury: Resolved (10) Intractable nausea and vomiting: Resolved (11) High anion gap metabolic acidosis: Mild Continue to monitor Plan DVT prophylaxis: Apixaban CODE STATUS: Full code Attestations Medical Necessity Statement*: Patient remains in A. fib with rapid ventricular rate requiring ongoing hospitalization for treatment of arrhythmia, IV antibiotics, and supportive care. Coding Level of Care Code Acute Code for [facility] Diagnoses Atrial fibrillation I48.91 Community acquired pneumonia J18.9 Hypokalemia E87.6 Hypomagnesemia E83.42 Hypotension I95.9 BPH (benign prostatic hyperplasia) N40.0 Macrocytosis D75.89 Alcohol abuse F10.10 Acute kidney injury N17.9 Intractable nausea and vomiting R11.2 High anion gap metabolic acidosis E87.29
--- NOTE | 2022-08-12 12:00 | PM.PN ---
Subjective Subjective: Ethan is 67 years old. He was admitted on the ninth some 5 days ago with renal insufficiency, dizziness, hypotension and chronic nausea and vomiting. He stopped his calcium channel mery due to hypotension and was in atrial fibrillation with a rapid ventricular response. He has been transitioned over to amiodarone, digoxin, metoprolol and is anticoagulated. His heart rates are now slightly below 100. His blood pressure is normal. He has had difficulties with hypomagnesemia, hypoalbuminemia and other electrolyte disturbances secondary to chronic alcoholism. He is also had carotid disease with an endarterectomy. As a result of the alcoholism he has a macrocytic anemia. He has had a gastric sleeve procedure performed in the past for obesity. He has a mildly reduced ejection fraction of 45% and has had volume overload previously. He admits to continuing to use alcohol but not to a significant degree as he describes it. He told me that he is waiting on a physician to come by with 3 doses of a gout medication. He is convinced that that is what is causing his problem. He said we could take colchicine and throw it away. He is not familiar with indomethacin. When I mention prednisone he said that is it . Vitals/I&O/Wt Last Vital Signs Temp 99.3 F 08/12/22 08:56 Pulse 68 08/12/22 10:00 Resp 25 H 08/12/22 10:00 BP 94/64 08/12/22 10:00 Pulse Ox 94 08/12/22 10:00 O2 Del Method 08/12/22 08:00 O2 Flow Rate 3 08/11/22 18:00 08/11/22 08/12/22 08/12/22 22:59 06:59 14:59 Intake Total 1000 / 1700 120 / 120 Output Total 325 / 675 450 / 1125 Balance 675 / 1025 -450 / 575 120 / 120 Weight last 48 hrs Weight 213 lb 13.574 oz Weight 221 lb 12.8 oz Physical Exam Narrative: GENERAL: In general he is awake and alert. HEENT: Exam within normal limits. NECK: Supple without jugular vein distention. The carotid upstroke is normal without bruits. BACK: Exam normal. LUNGS: Clear. HEART: Irregularly irregular rhythm ABDOMEN: Benign without organomegaly or tenderness. EXTREMITIES: No edema. NEUROLOGIC: Exam normal. SKIN: Unremarkable. Urinary Catheter Management: Haq: Cath Placed During This Visit: yes Reason for Continuing Indwelling Catheter: Accurate Measurement of Urinary Output in Critically Ill Patients Urinary Catheter Date of Insertion: 08/08/22 Urinary Catheter Time of Insertion: 05:30 Data 08/12/22 03:15 08/12/22 03:15 Micro: Microbiology 08/10/22 15:12 Blood Culture - Preliminary Blood NEGATIVE TO DATE 08/10/22 15:08 Blood Culture - Preliminary Blood NEGATIVE TO DATE A&P Assessment and plan (1) Community acquired pneumonia: (2) Atrial fibrillation and flutter: (3) Hypotension: (4) Acute kidney injury: (5) Systolic heart failure: Qualifiers: Heart failure chronicity: chronic Qualified Code(s): I50.22 - Chronic systolic (congestive) heart failure (6) Hypertension: Qualifiers: Hypertension type: essential hypertension Qualified Code(s): I10 - Essential (primary) hypertension (7) Benign essential hypertension with target blood pressure below 140/90: (8) Alcohol abuse: (9) Cardiomyopathy: Qualifiers: Cardiomyopathy type: other Qualified Code(s): I42.8 - Other cardiomyopathies (10) S/P carotid endarterectomy: (11) Atrial fibrillation: Plan I did not change his medicines today. His heart rate is under better control. He is on a beta-mery, digoxin and amiodarone. He is also anticoagulated. No changes made Attestations Medical Necessity Statement*: Hospitalization for management of atrial fibrillation, volume overload, alcohol abuse, hypotension, macrocytic anemia. Coding Level of Care Code Acute Code for Ch[facility] Fwd History Comprehensive Exam Comprehensive Medical Decision Making High Complexity Diagnoses Community acquired pneumonia J18.9 Atrial fibrillation and flutter I48.91; I48.92 Hypotension I95.9 Acute kidney injury N17.9 Systolic heart failure I50.22 Heart failure chronicity: chronic Hypertension I10 Hypertension type: essential hypertension Benign essential hypertension with target blood pressure below 140/90 I10 Alcohol abuse F10.10 Cardiomyopathy I42.8 Cardiomyopathy type: other S/P carotid endarterectomy Z98.890 Atrial fibrillation I48.91
[2022-08-12] MEDS: potassium chloride ER 20 mEq Tablet 40 MEQ PO (12:43)
[2022-08-12] MEDS: azithromycin 500 MG in sodium chloride 0.9% 250 ML 250 MG IV (14:22)
[2022-08-12] MEDS: cefTRIAXone 1,000 MG in sodium chloride 0.9% (plus) 50 ML 100 MG IV (15:48)
[2022-08-13] VITALS (13 sets, daily range): BP systolic 99–124; BP diastolic 57–78; PULSE 71–136; RESP 16–26; TEMP 36.6–36.9; O2SAT 92–97
[2022-08-13] MEDS: acetaminophen 325 mg Tablet 650 MG PO (02:55)
[2022-08-13 03:40] LABS: Basophils % 0.3 %; Eosinophils # 0.2 10^3/uL (0.0-0.8); Eosinophils % 2.7 %; Hematocrit 28.2 % (42.0-52.0); Hemoglobin 8.9 g/dL (11.7-16.6); Lymphocytes # 0.5 10^3/uL (0.8-4.8); Lymphocytes % 6.7 %; Mean Corpuscular HGB Conc 31.6 g/dL (30.0-36.0); Mean Corpuscular Hemoglobin 33.8 pg (28.0-34.0); Mean Corpuscular Volume 107.2 fl (80-94); Mean Platelet Volume 11.5 fL (7.4-10.4); Monocytes # 0.8 10^3/uL (0.2-0.9); Monocytes % 12.1 %; Neutrophils # 5.22 10^3/uL (1.8-7.7); Neutrophils % 77.6 %; Nucleated Red Blood Cells % 0 %; Platelet Count 237 10^3/cmm (130-400); Red Blood Count 2.63 10^6/uL (4.1-5.3); Red Cell Distribution Width 14.6 % (12.1-15.1); White Blood Count 6.7 10^3/uL (4.0-10.0)
[2022-08-13 04:14] LABS: Alanine Aminotransferase 35 U/L (0-41); Albumin Level 2.2 g/dL (3.5-5.2); Alkaline Phosphatase 106 U/L (40-130); Anion Gap 13.3 (5-19); Aspartate Amino Transferase 82 U/L (0-40); Blood Urea Nitrogen 15 mg/dL (8-23); Calcium 7.7 mg/dL (8.5-10.5); Carbon Dioxide 20 mmol/L (22-29); Chloride 103 mmol/L (98-107); Glomerular Filtration Rate 96.1 mL/min (90-130); Glucose 86 mg/dL (65-115); Magnesium 1.6 mg/dL (1.7-2.3); Osmolality Calculated 274 mOsm/kg (285-295); Phosphorus 2.8 mg/dL (2.5-4.5); Potassium 4.3 mmol/L (3.5-5.1); Sodium 132 mmol/L (136-145); Total Bilirubin 0.6 mg/dL (0.15-1.2); Total Protein 5.2 g/dL (6.6-8.7)
[2022-08-13] MEDS: magnesium sulfate premix 2 GM/50 ML PIGGYBACK IV (09:19)
[2022-08-13] MEDS: digoxin 250 mcg Tablet PO (09:20)
[2022-08-13] MEDS: tamsulosin 0.4 mg Capsule PO ×2 (09:20→17:41)
[2022-08-13] MEDS: apixaban 5 mg Tablet 2.5 MG PO ×2 (09:21→21:06)
[2022-08-13] MEDS: thiamine 100 mg Tablet PO (09:21)
[2022-08-13] MEDS: multivitamin therapeutic Tablet 1 TAB PO (09:21)
[2022-08-13] MEDS: folic acid 1 mg Tablet PO (09:21)
[2022-08-13] MEDS: amiodarone 200 mg Tablet 400 MG PO ×2 (09:22→17:42)
[2022-08-13] MEDS: metoprolol tartrate 50 mg Tablet 75 MG PO ×2 (09:22→21:05)
[2022-08-13] MEDS: pantoprazole DR 40 mg Tablet PO ×2 (09:22→17:41)
[2022-08-13] MEDS: oxyCODONE 5 mg IR Tab/Cap PO ×2 (09:36→21:06)
--- NOTE | 2022-08-13 09:48 | PM.PN ---
Subjective Subjective: Ethan feels little better today. He has been up walking around. He feels like he is regaining his strength. His heart rate is little high but he was just up walking. Mostly, the heart rate is below 100 bpm. Vitals/I&O/Wt Last Vital Signs Temp 97.9 F 08/13/22 07:33 Pulse 136 H 08/13/22 09:20 Resp 18 08/13/22 09:36 BP 122/69 08/13/22 07:33 Pulse Ox 93 08/13/22 09:36 O2 Del Method 08/12/22 22:00 O2 Flow Rate 3 08/11/22 18:00 08/12/22 08/13/22 08/13/22 22:59 06:59 14:59 Intake Total 830 / 1345 Output Total 900 / 900 820 / 1720 Balance -70 / 445 -820 / -375 Weight last 48 hrs Weight 216 lb 4 oz Weight 213 lb 13.574 oz Physical Exam Narrative: GENERAL: In general he looks and feels well. HEENT: Exam within normal limits. NECK: Supple without jugular vein distention. The carotid upstroke is normal without bruits. BACK: Exam normal. LUNGS: Clear. HEART: Irregularly irregular rhythm ABDOMEN: Benign without organomegaly or tenderness. EXTREMITIES: No edema. NEUROLOGIC: Exam normal. SKIN: Unremarkable. Urinary Catheter Management: Haq: Cath Placed During This Visit: yes Reason for Continuing Indwelling Catheter: Accurate Measurement of Urinary Output in Critically Ill Patients Urinary Catheter Date of Insertion: 08/08/22 Urinary Catheter Time of Insertion: 05:30 Data 08/13/22 03:23 08/13/22 03:23 A&P Assessment and plan (1) Community acquired pneumonia: (2) Atrial fibrillation and flutter: (3) Acute kidney injury: (4) Systolic heart failure: Qualifiers: Heart failure chronicity: chronic Qualified Code(s): I50.22 - Chronic systolic (congestive) heart failure (5) Hypertension: Qualifiers: Hypertension type: essential hypertension Qualified Code(s): I10 - Essential (primary) hypertension (6) Mixed hyperlipidemia: (7) Benign essential hypertension with target blood pressure below 140/90: (8) Alcohol abuse: (9) Cardiomyopathy: Qualifiers: Cardiomyopathy type: other Qualified Code(s): I42.8 - Other cardiomyopathies (10) Carotid artery stenosis without cerebral infarction: Qualifiers: Laterality: right Qualified Code(s): I65.21 - Occlusion and stenosis of right carotid artery Plan Continue current care. No changes made. Medicines are appropriate. Attestations Medical Necessity Statement*: Hospitalization for management of pneumonia, atrial fibrillation, kidney disease, hypertension and cardiomyopathy. Coding Level of Care Code Acute Code for Chg Fwd History Detailed Exam Detailed Medical Decision Making Moderate Complexity Diagnoses Community acquired pneumonia J18.9 Atrial fibrillation and flutter I48.91; I48.92 Acute kidney injury N17.9 Systolic heart failure I50.22 Heart failure chronicity: chronic Hypertension I10 Hypertension type: essential hypertension Mixed hyperlipidemia E78.2 Benign essential hypertension with target blood pressure below 140/90 I10 Alcohol abuse F10.10 Cardiomyopathy I42.8 Cardiomyopathy type: other Carotid artery stenosis without cerebral infarction I65.21 Laterality: right
--- NOTE | 2022-08-13 10:51 | PM.PN ---
Subjective Subjective: Patient reports he started to feel a little better. He thinks he is getting stronger. He was up out of bed yesterday. Denies fevers or chills. Reports adequate oral intake. Denies nausea or vomiting. Denies palpitations or chest pain. Medications: Reviewed: Yes Vitals/I&O/Wt Last Vital Signs Temp 97.9 F 08/13/22 07:33 Pulse 136 H 08/13/22 09:20 Resp 18 08/13/22 09:36 BP 122/69 08/13/22 07:33 Pulse Ox 93 08/13/22 09:36 O2 Del Method 08/12/22 22:00 O2 Flow Rate 3 08/11/22 18:00 08/12/22 08/13/22 08/13/22 22:59 06:59 14:59 Intake Total 830 / 1345 360 / 360 Output Total 900 / 900 820 / 1720 Balance -70 / 445 -820 / -375 360 / 360 Weight last 48 hrs Weight 98.089 kg Weight 97 kg Physical Exam Narrative: General: Patient is awake. Alert. Pleasant. Head: Normocephalic. Atraumatic. EOM intact. Neck: No JVD. Cardiovascular: Irregularly irregular rhythm. No gallops. No murmurs. Lungs: Clear to auscultation, no use of accessory muscles, no crackles or wheezes. Skin: No jaundice. No rashes. Abdomen: Normal bowel sounds, abdomen soft and nontender. Genito Urinary: Genital exam not performed since complaints not related. Rectal: Rectal exam not performed since no symptoms indicated blood loss. Extremities: No cyanosis or clubbing. Musculoskeletal: Right knee is mildly swollen. Neurological: Moves all 4 extremities. No myoclonus. Urinary Catheter Management: Haq: Cath Placed During This Visit: yes Reason for Continuing Indwelling Catheter: Accurate Measurement of Urinary Output in Critically Ill Patients Urinary Catheter Date of Insertion: 08/08/22 Urinary Catheter Time of Insertion: 05:30 Data 08/13/22 03:23 08/13/22 03:23 A&P Assessment and plan (1) Atrial fibrillation: Heart rate is improved, hovering around 100 Cardiology following, appreciate recommendations Continuous telemetry monitoring Continue oral loading dose amiodarone Continue apixaban Continue digoxin Continue metoprolol TTE with LVEF of 45% with diffuse hypokinesis of LV (2) Community acquired pneumonia: Fever has resolved Continue ceftriaxone (08/10-present) Complete azithromycin (08/10-08/13) Pulmonary toilet Madelyn zheng (3) Hypokalemia: Resolved Continue to monitor Keep for above given arrhythmia (4) Hypomagnesemia: Magnesium 1.6 Magnesium sulfate 2 g IV once Continue to monitor (5) Hypotension: Blood pressure has improved Continue to closely monitor (6) BPH (benign prostatic hyperplasia): Continue Flomax (7) Macrocytosis: History of alcoholism as well as gastric bypass Continue supplementation with thiamine and folate (8) Alcohol abuse: Encourage abstinence (9) Acute kidney injury: Resolved (10) Intractable nausea and vomiting: Resolved (11) High anion gap metabolic acidosis: Mild Continue to monitor Plan DVT prophylaxis: Apixaban CODE STATUS: Full code Attestations Medical Necessity Statement*: Patient remains in A. fib with rapid ventricular rate requiring ongoing hospitalization for treatment of arrhythmia, IV antibiotics, and supportive care. Coding Level of Care Code Acute Code for [facility] Diagnoses Atrial fibrillation I48.91 Community acquired pneumonia J18.9 Hypokalemia E87.6 Hypomagnesemia E83.42 Hypotension I95.9 BPH (benign prostatic hyperplasia) N40.0 Macrocytosis D75.89 Alcohol abuse F10.10 Acute kidney injury N17.9 Intractable nausea and vomiting R11.2 High anion gap metabolic acidosis E87.29
[2022-08-13] MEDS: predniSONE 20 mg Tablet 40 MG PO (13:37)
[2022-08-13] MEDS: azithromycin 500 MG in sodium chloride 0.9% 250 ML 250 MG IV (13:48)
[2022-08-13] MEDS: cefTRIAXone 1,000 MG in sodium chloride 0.9% (plus) 50 ML 100 MG IV (15:27)
[2022-08-14] VITALS (12 sets, daily range): BP systolic 109–130; BP diastolic 76–91; PULSE 63–91; RESP 16–23; TEMP 36.5–36.8; O2SAT 93–99
[2022-08-14 01:54] LABS: Albumin Level 2.5 g/dL (3.5-5.2); Anion Gap 13.3 (5-19); Blood Urea Nitrogen 14 mg/dL (8-23); Calcium 8.1 mg/dL (8.5-10.5); Carbon Dioxide 20 mmol/L (22-29); Chloride 102 mmol/L (98-107); Glucose 129 mg/dL (65-115); Magnesium 1.6 mg/dL (1.7-2.3); Phosphorus 3.3 mg/dL (2.5-4.5); Potassium 4.3 mmol/L (3.5-5.1); Sodium 131 mmol/L (136-145)
--- NOTE | 2022-08-14 08:01 | P.PN_ITS ---
Subjective Subjective: Patient was seen and examined this morning, heart rate is better controlled, denied any chest pain shortness of breath, currently making robust urine. No other events. Medications: Reviewed: Yes Medication Review Details: Generic Name Dose Route Start Last Admin Trade Name Freq PRN Reason Stop Dose Admin Acetaminophen 650 mg 08/07/22 14:54 08/13/22 02:55 Acetaminophen 32 5 Mg Tablet PO 650 mg Q6H PRN Administration MILD PAIN Amiodarone HCl 400 mg 08/08/22 11:30 08/13/22 17:42 Amiodarone 200 M g Tablet PO 400 mg BID ARNAV Administration Apixaban 2.5 mg 08/09/22 21:00 08/13/22 21:06 Apixaban 5 Mg Ta blet PO 2.5 mg BID@0900,2100 ARNAV Administration Benzonatate 100 mg 08/08/22 01:08 08/09/22 05:35 Benzonatate 100 Mg Capsule PO 100 mg TID PRN Administration COUGH Digoxin 250 mcg 08/10/22 10:35 08/13/22 09:20 Digoxin 250 Mcg Tablet PO 250 mcg DAILY ARNAV Administration Folic Acid 1 mg 08/08/22 09:00 08/13/22 09:21 Folic Acid 1 Mg Tablet PO 1 mg DAILY ARNAV Administration Ceftriaxone Sodium 1,000 mg/ 50 mls @ 100 mls/ hr 08/10/22 14:30 08/13/22 16:18 Sodium Chloride IV Infused Q24H ARNAV Infusion Protocol Metoprolol Tartrat e 75 mg 08/11/22 09:00 08/13/22 21:05 Metoprolol Tartr ate 50 Mg Tablet PO 75 mg BID@0900,2100 ARNAV Administration Multivitamins Ther apeutic 1 tab 08/08/22 09:00 08/13/22 09:21 Multivitamin The rapeutic Tablet PO 1 tab DAILY ARNAV Administration Ondansetron HCl 4 mg 08/07/22 14:54 08/09/22 08:47 Ondansetron 2 Mg /Ml Sdv 2 Ml IVP 4 mg Q6H PRN Administration NAUSEA AND VOMITI NG Oxycodone HCl 5 mg 08/10/22 10:28 08/13/22 21:06 Oxycodone 5 Mg I r Tab/Cap PO 5 mg Q6H PRN Administration MODERATE PAIN Pantoprazole Sodiu m 40 mg 08/10/22 18:00 08/13/22 17:[address] 40 Mg Tablet PO 40 mg BID ARNAV Administration Prednisone 40 mg 08/13/22 13:10 08/13/22 13:37 Prednisone 20 Mg Tablet PO 08/18/22 13:09 40 mg DAILY ARNAV Administration Tamsulosin HCl 0.4 mg 08/07/22 21:53 08/13/22 17:41 Tamsulosin 0.4 M g Capsule PO 0.4 mg BID ARNAV Administration Thiamine Mononitra te 100 mg 08/08/22 09:00 08/13/22 09:21 Thiamine 100 Mg Tablet PO 100 mg DAILY ARNAV Administration Vitals/I&O/Wt Last Vital Signs Temp 97.7 F 08/14/22 07:24 Pulse 72 08/14/22 07:24 Resp 19 H 08/14/22 07:24 BP 119/78 08/14/22 07:24 Pulse Ox 99 08/14/22 07:24 O2 Del Method 08/14/22 07:24 O2 Flow Rate 3 08/11/22 18:00 08/13/22 08/14/22 08/14/22 22:59 06:59 14:59 Intake Total 830 / 1730 760 / 2490 Output Total 2350 / 2350 900 / 3250 Balance -1520 / -620 -140 / -760 Weight last 48 hrs Weight 97.25 kg Weight 98.089 kg Physical Exam Const: COMMON NORMALS: patient oriented x3 Resp: COMMON NORMALS: clear to auscultation bilaterally EFFORT & INSPECTION: Yes symmetric chest movement AUSCULTATION: clear to auscultation bilaterally Cardio: COMMON NORMALS: No gallops present (Cardio), No murmurs present (Cardio), No rub (Cardio) and Peripheral pulses 2+ throughout PERIPHERAL PUL SES: Peripheral pulses 2+ throughout OTHER: Irregularly irregular rhythm, S1-S2 variable intensity GI: COMMON NORMALS: Normal to inspection, nondistended, normoactive bowel sounds present, Soft to palpation, non-tender, No hepatosplenomegaly present and no masses AUSCULTATION: Yes normoactive bowel sounds PALPATION: Yes Soft to palpation and Yes No hepatosplenomegaly present RECTAL EXAM: Yes deferred Extremity: COMMON NORMALS: no clubbing, cyanosis or edema and no pedal edema Neuro: COMMON NORMALS: patient oriented x3 Urinary Catheter Management: Haq: Cath Placed During This Visit: yes Reason for Continuing Indwelling Catheter: Other Urinary Catheter Date of Insertion: 08/08/22 Urinary Catheter Time of Insertion: 05:30 Data 08/13/22 03:23 08/14/22 01:01 A&P Assessment and plan (1) Atrial fibrillation: Patient presents with atrial fibrillation with rapid ventricular rate. From my understanding he got a Cardizem bolus, and a Cardizem drip that was not successful in controlling his heart rate. Amiodarone was then Initiated. He had previously stopped his Cardizem at least several weeks ago. Patient stopped his medication secondary to low blood pressure. Will place him on low-dose Eliquis considering his risk factors. Risk and benefits discussed with the patient Cardiology consultation appreciated Currently on amiodarone, digoxin, metoprolol 50 mg twice daily. Will discuss with cardiology whether beta-mery should be increased further as heart rate is still not under ideal control. When patient awakens heart rate is approximately 120 Echo demonstrates EF of 45%, diffuse hypokinesis (2) Acute kidney injury: Resolved serum creatinine at baseline Patient presents with acute kidney injury. Is intractable nausea and vomiting might play a part He has been given fluid boluses in the emergency department and will continue IV fluids, with close follow-up of creatinine Check CT abdomen and pelvis demonstrated no obstruction Urinalysis unrevealing Renal function is back to baseline (3) Hypokalemia: Resolved after supplementation (4) Hypomagnesemia: Replete again. Recheck this afternoon and likely will need further supplementation (5) Hypotension: Patient with hypotension in the emergency department. Following fluid resuscitation blood pressures been adequate (6) Intractable nausea and vomiting: Patient with history of some intractable nausea vomiting the last several weeks He does have history of gastric bypass CT abdomen and pelvis without contrast demonstrated no obstruction Initiate diet (7) Macrocytosis: Folate level is low He has history of gastric bypass, as well as alcoholism Supplement thiamine, folate TSH was checked and normal (8) Alcohol abuse: Encourage abstinence Discontinued CIWA protocol. No evidence of withdrawal Plan Fever. Infiltrate noted left lower lobe. Rocephin and azithromycin initiated. Temperature curve decreased. Continue antibiotics currently. Global weakness. Working on nursing facility placement. Anemia. Stable today History of carotid artery disease and right carotid occlusion Multiple other medical problems as outlined in past medical history Full code Eliquis for DVT prophylaxis Attestations Medical Necessity Statement*: Patient is to be in hospital management of A. fib. Coding Level of Care Code Acute Code for Chg Fwd Exam Detailed Diagnoses Atrial fibrillation I48.91 Acute kidney injury N17.9 Hypokalemia E87.6 Hypomagnesemia E83.42 Hypotension I95.9 Intractable nausea and vomiting R11.2 Macrocytosis D75.89 Alcohol abuse F10.10
--- NOTE | 2022-08-14 08:28 | PM.PN ---
Subjective Subjective: Patient's heart rate is controlled. He feels much better. Vitals/I&O/Wt Last Vital Signs Temp 97.7 F 08/14/22 07:24 Pulse 72 08/14/22 07:24 Resp 19 H 08/14/22 07:24 BP 119/78 08/14/22 07:24 Pulse Ox 99 08/14/22 07:24 O2 Del Method 08/14/22 07:24 O2 Flow Rate 3 08/11/22 18:00 08/13/22 08/14/22 08/14/22 22:59 06:59 14:59 Intake Total 830 / 1730 760 / 2490 Output Total 2350 / 2350 900 / 3250 Balance -1520 / -620 -140 / -760 Weight last 48 hrs Weight 214 lb 6.4 oz Weight 216 lb 4 oz Physical Exam Narrative: GENERAL: Patient is alert, awake and oriented x3. [] NECK: No jugular vein distension. [] HEENT: No cyanosis. No icterus. No pallor. [] HEART: Normal heart rate, irregularly irregular rhythm LUNGS: Clear to auscultate bilaterally. [] CENTRAL NERVOUS SYSTEM: Grossly nonfocal. [] EXTREMITIES: Lower extremities with 1+ edema bilaterally. Pulses palpable in the lower extremities, both dorsalis pedis and posterior tibial. [] Urinary Catheter Management: Haq: Cath Placed During This Visit: yes Reason for Continuing Indwelling Catheter: Other Urinary Catheter Date of Insertion: 08/08/22 Urinary Catheter Time of Insertion: 05:30 Data 08/13/22 03:23 08/14/22 01:01 A&P Assessment and plan (1) Atrial fibrillation: (2) Hypotension: (3) Acute kidney injury: (4) Hypertension: Qualifiers: Hypertension type: essential hypertension Qualified Code(s): I10 - Essential (primary) hypertension Plan Patient is atrial fibrillation is rate controlled and elevated continue current dose of amiodarone 400 mg daily, digoxin and metoprolol 75 mg twice daily. Check digoxin levels. Amiodarone can be down titrated to 200 mg daily after 7 total days of current dose. Echo shows normal LV systolic function. Thank you for involving us with care of this patient. We will continue to follow. Please call with questions Attestations Medical Necessity Statement*: Care expected to cross 2 midnights Coding Level of Care Code Acute Code for Chg Fwd Diagnoses Atrial fibrillation I48.91 Hypotension I95.9 Acute kidney injury N17.9 Hypertension I10 Hypertension type: essential hypertension
[2022-08-14] MEDS: pantoprazole DR 40 mg Tablet PO ×2 (09:04→17:40)
[2022-08-14] MEDS: thiamine 100 mg Tablet PO (09:04)
[2022-08-14] MEDS: amiodarone 200 mg Tablet 400 MG PO ×2 (09:04→17:40)
[2022-08-14] MEDS: predniSONE 20 mg Tablet 40 MG PO (09:04)
[2022-08-14] MEDS: folic acid 1 mg Tablet PO (09:04)
[2022-08-14] MEDS: multivitamin therapeutic Tablet 1 TAB PO (09:05)
[2022-08-14] MEDS: metoprolol tartrate 50 mg Tablet 75 MG PO ×2 (09:05→22:20)
[2022-08-14] MEDS: digoxin 250 mcg Tablet PO (09:05)
[2022-08-14] MEDS: apixaban 5 mg Tablet 2.5 MG PO ×2 (09:05→22:20)
[2022-08-14] MEDS: tamsulosin 0.4 mg Capsule PO ×2 (09:05→17:40)
[2022-08-14] MEDS: oxyCODONE 5 mg IR Tab/Cap PO ×2 (09:27→22:21)
--- NOTE | 2022-08-14 10:52 | PC.SOCIAL ---
Imm update Imm updated with patient at bedside. Copy of page 2 provided. Patient verbalized understanding. Copy in chart initialed, dated and timed.
[2022-08-14] MEDS: cefTRIAXone 1,000 MG in sodium chloride 0.9% (plus) 50 ML 100 MG IV (13:30)
[2022-08-14] MEDS: acetaminophen 325 mg Tablet 650 MG PO (18:10)
[2022-08-15] VITALS (10 sets, daily range): BP systolic 111–127; BP diastolic 67–93; PULSE 61–90; RESP 18–23; TEMP 36.3–36.6; O2SAT 92–96
--- NOTE | 2022-08-15 03:54 | PC.NURSE ---
Mr. Lake is intermittantly confused. 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 He can answer direct uestions about hunger, pain, room temperature amnd whether he needs more water in his cup. However, Mr. Lake has attempted to get out of bed several times tonight, both from between the side rails and ove the foot of the bed and he becomes entangled in his monitor wires. We have set a bed alarm for him and he has triggered it several times tonight.When e re-orient Mr. lake to location and time, he is humorpus in his comments and easily re-directed.
[2022-08-15 05:59] LABS: Basophils % 0.1 %; Eosinophils % 0.4 %; Hematocrit 31.6 % (42.0-52.0); Lymphocytes # 0.6 10^3/uL (0.8-4.8); Lymphocytes % 8.4 %; Mean Corpuscular HGB Conc 31.6 g/dL (30.0-36.0); Mean Corpuscular Hemoglobin 33.4 pg (28.0-34.0); Mean Corpuscular Volume 105.7 fl (80-94); Mean Platelet Volume 11.2 fL (7.4-10.4); Monocytes # 0.8 10^3/uL (0.2-0.9); Monocytes % 10.4 %; Neutrophils # 6.09 10^3/uL (1.8-7.7); Nucleated Red Blood Cells % 0 %; Platelet Count 360 10^3/cmm (130-400); Red Blood Count 2.99 10^6/uL (4.1-5.3); Red Cell Distribution Width 14.8 % (12.1-15.1); White Blood Count 7.6 10^3/uL (4.0-10.0)
[2022-08-15 06:15] LABS: Anion Gap 16.8 (5-19); Blood Urea Nitrogen 15 mg/dL (8-23); Calcium 8.6 mg/dL (8.5-10.5); Carbon Dioxide 21 mmol/L (22-29); Chloride 105 mmol/L (98-107); Glomerular Filtration Rate 112.1 mL/min (90-130); Glucose 86 mg/dL (65-115); Osmolality Calculated 288 mOsm/kg (285-295); Potassium 3.8 mmol/L (3.5-5.1); Sodium 139 mmol/L (136-145)
[2022-08-15 06:19] LABS: Digoxin 1.7 ng/mL (0.6-1.2)
--- NOTE | 2022-08-15 08:24 | P.PN_ITS ---
Subjective Subjective: Patient doing well. heart rate increases with walking. Vitals/I&O/Wt Last Vital Signs Temp 97.4 F L 08/15/22 08:00 Pulse 90 08/15/22 08:00 Resp 22 H 08/15/22 08:00 BP 111/69 08/15/22 08:00 Pulse Ox 96 08/15/22 08:00 O2 Del Method 08/15/22 08:00 O2 Flow Rate 3 08/11/22 18:00 08/14/22 08/15/22 08/15/22 22:59 06:59 14:59 Intake Total 360 / 890 Output Total 2000 / 2800 1100 / 3900 Balance -1640 / -1910 -1100 / -3010 Weight last 48 hrs Weight 214 lb 6.4 oz Physical Exam Narrative: GENERAL: Patient is alert, awake and oriented x3. [] NECK: No jugular vein distension. [] HEENT: No cyanosis. No icterus. No pallor. [] HEART: Normal heart rate, irregularly irregular rhythm LUNGS: Clear to auscultate bilaterally. [] CENTRAL NERVOUS SYSTEM: Grossly nonfocal. [] EXTREMITIES: Lower extremities with 1+ edema bilaterally. Pulses palpable in the lower extremities, both dorsalis pedis and posterior tibial. [] Urinary Catheter Management: Haq: Cath Placed During This Visit: yes Reason for Continuing Indwelling Catheter: Acute Urinary Retention or Obstruction Urinary Catheter Date of Insertion: 08/08/22 Urinary Catheter Time of Insertion: 05:30 Data 08/15/22 05:22 08/15/22 05:22 A&P Assessment and plan (1) Atrial fibrillation: (2) Hypotension: (3) Acute kidney injury: (4) Hypertension: Qualifiers: Hypertension type: essential hypertension Qualified Code(s): I10 - Esse ntial (primary) hypertension Plan Continue current medications including amiodarone, digoxin and metoprolol. Heart rates are controlled. Echo shows normal LV systolic function. Thank you for involving us with care of this patient. We will continue to follow. Please call with questions Attestations Medical Necessity Statement*: Care expected to cross 2 midnights. Coding Level of Care Code Acute Code for [facility] Fwd Diagnoses Atrial fibrillation I48.91 Hypotension I95.9 Acute kidney injury N17.9 Hypertension I10 Hypertension type: essential hypertension
[2022-08-15] MEDS: digoxin 250 mcg Tablet PO (09:51)
[2022-08-15] MEDS: predniSONE 20 mg Tablet 40 MG PO (09:53)
[2022-08-15] MEDS: apixaban 5 mg Tablet 2.5 MG PO ×2 (09:54→20:47)
[2022-08-15] MEDS: multivitamin therapeutic Tablet 1 TAB PO (09:54)
[2022-08-15] MEDS: metoprolol tartrate 50 mg Tablet 75 MG PO ×2 (09:55→20:47)
[2022-08-15] MEDS: thiamine 100 mg Tablet PO (09:55)
[2022-08-15] MEDS: pantoprazole DR 40 mg Tablet PO ×2 (09:55→18:52)
[2022-08-15] MEDS: folic acid 1 mg Tablet PO (09:55)
[2022-08-15] MEDS: tamsulosin 0.4 mg Capsule PO ×2 (09:56→18:52)
[2022-08-15] MEDS: amiodarone 200 mg Tablet 400 MG PO ×2 (10:03→18:52)
--- NOTE | 2022-08-15 10:26 | P.PN_ITS ---
Subjective Subjective: Patient was seen and examined this morning, heart rate is better controlled, serum digoxin level is at 1.7, patient has slight confusion, denied any nausea vomiting, visual disturbances, says he feels fine. Does not fit classically for dig toxicity, though confusion is a strong component, I will prefer to monitor him For now, hold digoxin, will hold using Digibind for now. Follow a.m. serum digo suzanne level. If needed at most will use Digibind. Has been afebrile overnight. Will likely get repeat urinalysis. Medications: Reviewed: Yes Medication Review Details: Generic Name Dose Route Start Last Admin Trade Name Freq PRN Reason Stop Dose Admin Acetaminophen 650 mg 08/07/22 14:54 08/14/22 18:10 Acetaminophen 32 5 Mg Tablet PO 650 mg Q6H PRN Administration MILD PAIN Amiodarone HCl 400 mg 08/08/22 11:30 08/15/22 10:03 Amiodarone 200 M g Tablet PO 400 mg BID ARNAV Administration Apixaban 2.5 mg 08/09/22 21:00 08/15/22 09:54 Apixaban 5 Mg Ta blet PO 2.5 mg BID@0900,2100 ARNAV Administration Benzonatate 100 mg 08/08/22 01:08 08/09/22 05:35 Benzonatate 100 Mg Capsule PO 100 mg TID PRN Administration COUGH Digoxin 250 mcg 08/10/22 10:35 08/15/22 09:51 Digoxin 250 Mcg Tablet PO 250 mcg DAILY ARNAV Administration Folic Acid 1 mg 08/08/22 09:00 08/15/22 09:55 Folic Acid 1 Mg Tablet PO 1 mg DAILY ARNAV Administration Ceftriaxone Sodium 1,000 mg/ 50 mls @ 100 mls/ hr 08/10/22 14:30 08/14/22 14:11 Sodium Chloride IV Infused Q24H ARNAV Infusion Protocol Metoprolol Tartrat e 75 mg 08/11/22 09:00 08/15/22 09:55 Metoprolol Tartr ate 50 Mg Tablet PO 75 mg BID@0900,2100 ARNAV Administration Multivitamins Ther apeutic 1 tab 08/08/22 09:00 08/15/22 09:54 Multivitamin The rapeutic Tablet PO 1 tab DAILY ARNAV Administration Ondansetron HCl 4 mg 08/07/22 14:54 08/09/22 08:47 Ondansetron 2 Mg /Ml Sdv 2 Ml IVP 4 mg Q6H PRN Administration NAUSEA AND VOMITI NG Oxycodone HCl 5 mg 08/14/22 22:13 08/14/22 22:21 Oxycodone 5 Mg I r Tab/Cap PO 5 mg Q6H PRN Administration MODERATE PAIN Pantoprazole Sodiu m 40 mg 08/10/22 18:00 08/15/22 09:[address] 40 Mg Tablet PO 40 mg BID ARNAV Administration Prednisone 40 mg 08/13/22 13:10 08/15/22 09:53 Prednisone 20 Mg Tablet PO 08/18/22 13:09 40 mg DAILY ARNAV Administration Tamsulosin HCl 0.4 mg 08/07/22 21:53 08/15/22 09:56 Tamsulosin 0.4 M g Capsule PO 0.4 mg BID ARNAV Administration Thiamine Mononitra te 100 mg 08/08/22 09:00 08/15/22 09:55 Thiamine 100 Mg Tablet PO 100 mg DAILY ARNAV Administration Vitals/I&O/Wt Last Vital Signs Temp 97.4 F L 08/15/22 08:00 Pulse 81 08/15/22 09:51 Resp 22 H 08/15/22 08:00 BP 111/69 08/15/22 08:00 Pulse Ox 96 08/15/22 08:00 O2 Del Method 08/15/22 08:00 O2 Flow Rate 3 08/11/22 18:00 08/14/22 08/15/22 08/15/22 22:59 06:59 14:59 Intake Total 360 / 890 360 / 360 Output Total 2000 / 2800 1100 / 3900 Balance -1640 / -1910 -1100 / -3010 360 / 360 Weight last 48 hrs Weight 97.25 kg Physical Exam Narrative: Slightly confused Resp: COMMON NORMALS: No use of accessory muscles and clear to auscultation bilaterally EFFORT & INSPECTION: Yes symmetric chest movement AUSCULTATION: clear to auscultation bilaterally Cardio: COMMON NORMALS: No gallops present (Cardio), No murmurs present (Cardio), No rub (Cardio) and Peripheral pulses 2+ throughout PERIPHERAL PULSES: Peripheral pulses 2+ throughout OTHER: Irregularly irregular rhythm, S1-S2 variable intensity GI: COMMON NORMALS: Normal to inspection, nondistended, normoactive bowel sounds present, Soft to palpation, non-tender, No hepatosplenomegaly present and no masses AUSCULTATION: Yes normoactive bowel sounds PALPATION: Yes Soft to palpation and Yes No hepatosplenomegaly present RECTAL EXAM: Yes deferred Extremity: COMMON NORMALS: no clubbing, cyanosis or edema and no pedal edema Urinary Catheter Management: Haq: Cath Placed During This Visit: yes Reason for Continuing Indwelling Catheter: Acute Urinary Retention or Obstruction Urinary Catheter Date of Insertion: 08/08/22 Urinary Catheter Time of Insertion: 05:30 Data 08/15/22 05:22 08/15/22 05:22 A&P Assessment and plan (1) Atrial fibrillation: Patient presents with atrial fibrillation with rapid ventricular rate. From my understanding he got a Cardizem bolus, and a Cardizem drip that was not successful in controlling his heart rate. Amiodarone was then Initiated. He had previously stopped his Cardizem at least several weeks ago. Patient stopped his medication secondary to low blood pressure. Will place him on low-dose Eliquis considering his risk factors. Risk and benefits discussed with the patient Cardiology consultation appreciated Currently on amiodarone, digoxin, metoprolol 50 mg twice daily. Will discuss with cardiology whether beta-mery should be increased further as heart rate is still not under ideal control. When patient awakens heart rate is approxi mately 120 Echo demonstrates EF of 45%, diffuse hypokinesis (2) Acute kidney injury: Resolved serum creatinine at baseline Patient presents with acute kidney injury. Is intractable nausea and vomiting might play a part He has been given fluid boluses in the emergency department and will continue IV fluids, with close follow-up of creatinine Check CT abdomen and pelvis demonstrated no obstruction Urinalysis unrevealing Renal function is back to baseline (3) Hypokalemia: Resolved after supplementation (4) Hypomagnesemia: Replete again. Recheck this afternoon and likely will need further supplementation (5) Hypotension: Patient with hypotension in the emergency department. Following fluid resuscitation blood pressures been adequate (6) Intractable nausea and vomiting: Patient with history of some intractable nausea vomiting the last several weeks He does have history of gastric bypass CT abdomen and pelvis without contrast demonstrated no obstruction Initiate diet (7) Macrocytosis: Folate level is low He has history of gastric bypass, as well as alcoholism Supplement thiamine, folate TSH was checked and normal (8) Alcohol abuse: Encourage abstinence Discontinued CIWA protocol. No evidence of withdrawal (9) Elevated digoxin level: Hold Digoxin for now Monitor Serum Digoxin level will hold off on Digiband Plan Fever. Infiltrate noted left lower lobe. Rocephin and azithromycin initiated. Temperature curve decreased. Continue antibiotics currently. Global weakness. Working on nursing facility placement. Anemia. Stable today History of carotid artery disease and right carotid occlusion Multiple other medical problems as outlined in past medical history Full code Eliquis for DVT prophylaxis Attestations Medical Necessity Statement*: Patient is to be in hospital for monitoring of elevated digoxin level. Coding Level of Care Code Acute Code for Chg Fwd Exam Detailed Diagnoses Atrial fibrillation I48.91 Acute kidney injury N17.9 Hypokalemia E87.6 Hypomagnesemia E83.42 Hypotension I95.9 Intractable nausea and vomiting R11.2 Macrocytosis D75.89 Alcohol abuse F10.10 Elevated digoxin level R78.89
--- NOTE | 2022-08-15 11:04 | PC.NURSE ---
Patient pulled out young at 1100am without incident. Balloon still intact.600mL in bag.
[2022-08-15] MEDS: oxyCODONE 5 mg IR Tab/Cap PO ×2 (11:44→20:47)
[2022-08-15] MEDS: cefTRIAXone 1,000 MG in sodium chloride 0.9% (plus) 50 ML 100 MG IV (14:26)
[2022-08-15 16:36] LABS: SARS Covid-2 Antigen negative (Negative)
[2022-08-16] VITALS (10 sets, daily range): BP systolic 107–139; BP diastolic 63–87; PULSE 37–85; RESP 14–21; TEMP 36.3–37.1; O2SAT 96–100
[2022-08-16 05:36] LABS: Basophils % 0.1 %; Eosinophils % 0.3 %; Hematocrit 27.5 % (42.0-52.0); Hemoglobin 8.8 g/dL (11.7-16.6); Lymphocytes # 0.6 10^3/uL (0.8-4.8); Lymphocytes % 7.7 %; Mean Corpuscular Hemoglobin 33.7 pg (28.0-34.0); Mean Corpuscular Volume 105.4 fl (80-94); Mean Platelet Volume 11.1 fL (7.4-10.4); Monocytes # 0.9 10^3/uL (0.2-0.9); Monocytes % 11.7 %; Neutrophils # 5.98 10^3/uL (1.8-7.7); Neutrophils % 79.3 %; Nucleated Red Blood Cells % 0 %; Platelet Count 352 10^3/cmm (130-400); Red Blood Count 2.61 10^6/uL (4.1-5.3); Red Cell Distribution Width 14.8 % (12.1-15.1); White Blood Count 7.5 10^3/uL (4.0-10.0)
[2022-08-16 06:02] LABS: Anion Gap 13.9 (5-19); Blood Urea Nitrogen 14 mg/dL (8-23); Calcium 8.1 mg/dL (8.5-10.5); Carbon Dioxide 22 mmol/L (22-29); Chloride 107 mmol/L (98-107); Glomerular Filtration Rate 96.1 mL/min (90-130); Glucose 78 mg/dL (65-115); Osmolality Calculated 287 mOsm/kg (285-295); Potassium 3.9 mmol/L (3.5-5.1); Sodium 139 mmol/L (136-145)
[2022-08-16 06:04] LABS: Digoxin 2.1 ng/mL (0.6-1.2)
--- NOTE | 2022-08-16 08:13 | PM.PN ---
Subjective Subjective: Patient is stable. Denies chest pain. Vitals/I&O/Wt Last Vital Signs Temp 97.4 F L 08/16/22 07:48 Pulse 37 L 08/16/22 05:51 Resp 15 08/16/22 03:57 BP 129/78 08/16/22 07:48 Pulse Ox 96 08/16/22 00:00 O2 Del Method 08/16/22 00:00 O2 Flow Rate 3 08/11/22 18:00 08/15/22 08/16/22 08/16/22 22:59 06:59 14:59 Intake Total 50 / 530 Output Total 420 / 1020 420 / 1440 Balance -370 / -490 -420 / -910 Weight last 48 hrs Weight 212 lb Physical Exam Narrative: GENERAL: Patient is alert, awake and oriented x3. [] NECK: No jugular vein distension. [] HEENT: No cyanosis. No icterus. No pallor. [] HEART: Normal heart rate, irregularly irregular rhythm LUNGS: Clear to auscultate bilaterally. [] CENTRAL NERVOUS SYSTEM: Grossly nonfocal. [] EXTREMITIES: Lower extremities with 1+ edema bilaterally. Pulses palpable in the lower extremities, both dorsalis pedis and posterior tibial. [] Urinary Catheter Management: Haq: Cath Placed During This Visit: yes, but has since been removed by the nurse Reason for Continuing Indwelling Catheter: Decision to DC Catheter Urinary Catheter Date of Insertion: 08/08/22 Urinary Catheter Time of Insertion: 05:30 Date Urinary Catheter Removed: 08/15/22 Time Urinary Catheter Discontinued: 14:00 Data 08/16/22 05:07 08/16/22 05:07 Micro: Microbiology 08/10/22 15:08 Blood Culture - Final Blood NO GROWTH AFTER 5 DAYS 08/10/22 15:12 Blood Culture - Final Blood NO GROWTH AFTER 5 DAYS 08/15/22 12:10 Occult Blood (FIT) - Final Stool - Gastric Aspirate A&P Assessment and plan (1) Atrial fibrillation: (2) Hypotension: (3) Acute kidney injury: (4) Hypertension: Qualifiers: Hypertension type: essential hypertension Qualified Code(s): I10 - Essential (primary) hypertension Plan Digoxin level is elevated. Holding digoxin. Continue metoprolol. Downtitrate amoidarone. Continue eliquis Echo shows normal LV systolic function. Thank you for involving us with care of this patient. We will continue to follow. Please call with questions Attestations Medical Necessity Statement*: Care expected to cross 2 midnights. Coding Level of Care Code Acute Code for g Fwd Diagnoses Atrial fibrillation I48.91 Hypotension I95.9 Acute kidney injury N17.9 Hypertension I10 Hypertension type: essential hypertension
--- NOTE | 2022-08-16 09:10 | PC.SOCIAL ---
IMM Update pg 2 of IMM updated and reviewed w/ patient. Copy provided and Copy in chart dated, and initialed.
[2022-08-16] MEDS: metoprolol tartrate 50 mg Tablet PO ×2 (10:25→21:38)
[2022-08-16] MEDS: apixaban 5 mg Tablet 2.5 MG PO ×2 (10:25→21:38)
[2022-08-16] MEDS: thiamine 100 mg Tablet PO (10:26)
[2022-08-16] MEDS: tamsulosin 0.4 mg Capsule PO ×2 (10:26→17:53)
[2022-08-16] MEDS: folic acid 1 mg Tablet PO (10:26)
[2022-08-16] MEDS: amiodarone 200 mg Tablet PO ×2 (10:26→17:53)
[2022-08-16] MEDS: multivitamin therapeutic Tablet 1 TAB PO (10:27)
[2022-08-16] MEDS: pantoprazole DR 40 mg Tablet PO ×2 (10:27→17:53)
[2022-08-16] MEDS: predniSONE 20 mg Tablet 40 MG PO (10:27)
--- NOTE | 2022-08-16 15:00 | P.PN_ITS ---
Subjective Subjective: Patient was seen and examined this morning, still has some degree of confusion. Serum digoxin level this morning is: 2.1, patient was also having episodes of slow ventricular response as well as pauses overnight, up to 2 seconds, lowest documented heart rate was in 40S. Will continue to hold digoxin, will cut back on metoprolol tartrate to 50 twice daily, as well as amiodarone 200 p.o. twice daily. Continue telemetry monitoring.Continue to monitor mentation. Medications: Reviewed: Yes Medication Review Details: Generic Name Dose Route Start Last Admin Trade Name Freq PRN Reason Stop Dose Admin Acetaminophen 650 mg 08/07/22 14:54 08/14/22 18:10 Acetaminophen 32 5 Mg Tablet PO 650 mg Q6H PRN Administration MILD PAIN Amiodarone HCl 200 mg 08/16/22 09:00 08/16/22 10:26 Amiodarone 200 M g Tablet PO 200 mg BID ARNAV Administration Apixaban 2.5 mg 08/09/22 21:00 08/16/22 10:25 Apixaban 5 Mg Ta blet PO 2.5 mg BID@0900,2100 ARNAV Administration Benzonatate 100 mg 08/08/22 01:08 08/09/22 05:35 Benzonatate 100 Mg Capsule PO 100 mg TID PRN Administration COUGH Digoxin 250 mcg 08/10/22 10:35 08/15/22 09:51 Digoxin 250 Mcg Tablet PO 250 mcg DAILY ARNAV Administration Folic Acid 1 mg 08/08/22 09:00 08/16/22 10:26 Folic Acid 1 Mg Tablet PO 1 mg DAILY ARNAV Administration Ceftriaxone Sodium 1,000 mg/ 50 mls @ 100 mls/ hr 08/10/22 14:30 08/15/22 15:26 Sodium Chloride IV Infused Q24H ARNAV Infusion Protocol Metoprolol Tartrat e 50 mg 08/16/22 09:00 08/16/22 10:25 Metoprolol Tartr ate 50 Mg Tablet PO 50 mg BID@0900,2100 ARNAV Administration Multivitamins Ther apeutic 1 tab 08/08/22 09:00 08/16/22 10:27 Multivitamin The rapeutic Tablet PO 1 tab DAILY ARNAV Administration Ondansetron HCl 4 mg 08/07/22 14:54 08/09/22 08:47 Ondansetron 2 Mg /Ml Sdv 2 Ml IVP 4 mg Q6H PRN Administration NAUSEA AND VOMITI NG Oxycodone HCl 5 mg 08/14/22 22:13 08/15/22 20:47 Oxycodone 5 Mg I r Tab/Cap PO 5 mg Q6H PRN Administration MODERATE PAIN Pantoprazole Sodiu m 40 mg 08/10/22 18:00 08/16/22 10:[address] 40 Mg Tablet PO 40 mg BID ARNAV Administration Prednisone 40 mg 08/13/22 13:10 08/16/22 10:27 Prednisone 20 Mg Tablet PO 08/18/22 13:09 40 mg DAILY ARNAV Administration Tamsulosin HCl 0.4 mg 08/07/22 21:53 08/16/22 10:26 Tamsulosin 0.4 M g Capsule PO 0.4 mg BID ARNAV Administration Thiamine Mononitra te 100 mg 08/08/22 09:00 08/16/22 10:26 Thiamine 100 Mg Tablet PO 100 mg DAILY ARNAV Administration Vitals/I&O/Wt Last Vital Signs Temp 97.7 F 08/16/22 12:00 Pulse 61 08/16/22 12:00 Resp 17 08/16/22 12:00 BP 107/63 08/16/22 12:00 Pulse Ox 97 08/16/22 12:00 O2 Del Method 08/16/22 12:00 O2 Flow Rate 3 08/11/22 18:00 08/16/22 08/16/22 08/16/22 06:59 14:59 22:59 Intake Total 960 / 960 Output Total 420 / 1440 400 / 400 Balance -420 / -910 560 / 560 Weight last 48 hrs Weight 96.162 kg Physical Exam Narrative: Slightly confused Resp: COMMON NORMALS: clear to auscultation bilaterally AUSCULTATION: clear to auscultation bilaterally Cardio: COMMON NORMALS: No gallops present (Cardio), No murmurs present (Cardio), No rub (Cardio) and Peripheral pulses 2+ throughout PERIPHERAL PULSES: Peripheral pulses 2+ throughout OTHER: Irregularly irregular rhythm, S1-S2 variable intensity GI: COMMON NORMALS: Normal to inspection, nondistended, normoactive bowel sounds present, Soft to palpation, non-tender, No hepatosplenomegaly present and no masses AUSCULTATION: Yes normoactive bowel sounds PALPATION: Yes Soft to palpation and Yes No hepatosplenomegaly present RECTAL EXAM: Yes deferred Extremity: COMMON NORMALS: no clubbing, cyanosis or edema and no pedal edema Urinary Catheter Management: Haq: Cath Placed During This Visit: yes, but has since been removed by the nurse Reason for Continuing Indwelling Catheter: Decision to DC Catheter Urinary Catheter Date of Insertion: 08/08/22 Urinary Catheter Time of Insertion: 05:30 Date Urinary Catheter Removed: 08/15/22 Time Urinary Catheter Discontinued: 14:00 Data 08/16/22 05:07 08/16/22 05:07 Micro: Microbiology 08/10/22 15:08 Blood Culture - Final Blood NO GROWTH AFTER 5 DAYS 08/10/22 15:12 Blood Culture - Final Blood NO GROWTH AFTER 5 DAYS 08/15/22 12:10 Occult Blood (FIT) - Final Stool - Gastric Aspirate A&P Assessment and plan (1) Atrial fibrillation: Patient presents with atrial fibrillation with rapid ventricular rate. From my understanding he got a Cardizem bolus, and a Cardizem drip that was not succ essful in controlling his heart rate. Amiodarone was then Initiated. He had previously stopped his Cardizem at least several weeks ago. Patient stopped his medication secondary to low blood pressure. Will place him on low-dose Eliquis considering his risk factors. Risk and benefits discussed with the patient Cardiology consultation appreciated Currently on amiodarone, digoxin, metoprolol 50 mg twice daily. Will discuss with cardiology whether beta-mery should be increased further as heart rate is still not under ideal control. When patient awakens heart rate is approximately 120 Echo demonstrates EF of 45%, diffuse hypokinesis (2) Acute kidney injury: Resolved serum creatinine at baseline Patient presents with acute kidney injury. Is intractable nausea and vomiting might play a part He has been given fluid boluses in the emergency department and will continue IV fluids, with close follow-up of creatinine Check CT abdomen and pelvis demonstrated no obstruction Urinalysis unrevealing Renal function is back to baseline (3) Hypokalemia: Resolved after supplementation (4) Hypomagnesemia: Replete again. Recheck this afternoon and likely will need further supplementation (5) Hypotension: Patient with hypotension in the emergency department. Following fluid resuscitation blood pressures been adequate (6) Intractable nausea and vomiting: Patient with history of some intractable nausea vomiting the last several weeks He does have history of gastric bypass CT abdomen and pelvis without contrast demonstrated no obstruction Initiate diet (7) Macrocytosis: Folate level is low He has history of gastric bypass, as well as alcoholism Supplement thiamine, folate TSH was checked and normal (8) Alcohol abuse: Encourage abstinence Discontinued CIWA protocol. No evidence of withdrawal (9) Elevated digoxin level: Hold Digoxin for now Monitor Serum Digoxin level will hold off on Digiband Plan Fever. Infiltrate noted left lower lobe. Rocephin and azithromycin initiated. Temperature curve decreased. Continue antibiotics currently. Global weakness. Working on nursing facility placement. Anemia. Stable today History of carotid artery disease and right carotid occlusion Multiple other medical problems as outlined in past medical history Full code Eliquis for DVT prophylaxis Attestations Medical Necessity Statement*: In Hospital for monitoring of digoxin level, optimization of rate/rhythm controlling medications. Coding Level of Care Code Acute Code for [facility] Fwd Diagnoses Atrial fibrillation I48.91 Acute kidney injury N17.9 Hypokalemia E87.6 Hypomagnesemia E83.42 Hypotension I95.9 Intractable nausea and vomiting R11.2 Macrocytosis D75.89 Alcohol abuse F10.10 Elevated digoxin level R78.89
[2022-08-16] MEDS: cefTRIAXone 1,000 MG in sodium chloride 0.9% (plus) 50 ML 100 MG IV (15:22)
[2022-08-16] MEDS: oxyCODONE 5 mg IR Tab/Cap PO (21:39)
[2022-08-17 03:56] LABS: Basophils % 0.1 %; Hematocrit 29.2 % (42.0-52.0); Hemoglobin 9.2 g/dL (11.7-16.6); Lymphocytes # 0.6 10^3/uL (0.8-4.8); Lymphocytes % 6.7 %; Mean Corpuscular HGB Conc 31.5 g/dL (30.0-36.0); Mean Corpuscular Hemoglobin 33.6 pg (28.0-34.0); Mean Corpuscular Volume 106.6 fl (80-94); Mean Platelet Volume 11.3 fL (7.4-10.4); Monocytes # 0.7 10^3/uL (0.2-0.9); Monocytes % 8.3 %; Neutrophils # 6.96 10^3/uL (1.8-7.7); Neutrophils % 83.8 %; Nucleated Red Blood Cells % 0 %; Platelet Count 409 10^3/cmm (130-400); Red Blood Count 2.74 10^6/uL (4.1-5.3); Red Cell Distribution Width 15.4 % (12.1-15.1); White Blood Count 8.3 10^3/uL (4.0-10.0)
[2022-08-17 04:07] VITALS: BP 132/85; PULSE 68; RESP 17; TEMP 36.7; O2SAT 98
[2022-08-17 04:28] LABS: Blood Urea Nitrogen 16 mg/dL (8-23); Calcium 8.3 mg/dL (8.5-10.5); Carbon Dioxide 22 mmol/L (22-29); Chloride 106 mmol/L (98-107); Glomerular Filtration Rate 83.9 mL/min (90-130); Glucose 75 mg/dL (65-115); Osmolality Calculated 290 mOsm/kg (285-295); Sodium 140 mmol/L (136-145)
[2022-08-17 04:35] LABS: Digoxin 1.6 ng/mL (0.6-1.2)
[2022-08-17 05:49] VITALS: PULSE 77
[2022-08-17 07:09] VITALS: BP 126/75; PULSE 75; RESP 16; TEMP 36.6
[2022-08-17] MEDS: amiodarone 200 mg Tablet PO (09:10)
[2022-08-17] MEDS: folic acid 1 mg Tablet PO (09:10)
[2022-08-17] MEDS: metoprolol tartrate 50 mg Tablet PO (09:10)
[2022-08-17] MEDS: tamsulosin 0.4 mg Capsule PO (09:10)
[2022-08-17] MEDS: predniSONE 20 mg Tablet 40 MG PO (09:10)
[2022-08-17] MEDS: pantoprazole DR 40 mg Tablet PO (09:11)
[2022-08-17] MEDS: multivitamin therapeutic Tablet 1 TAB PO (09:11)
[2022-08-17] MEDS: apixaban 5 mg Tablet 2.5 MG PO (09:11)
[2022-08-17] MEDS: thiamine 100 mg Tablet PO (09:12)
--- NOTE | 2022-08-17 09:43 | PM.PN ---
Subjective Subjective: Patient is stable. No chest pain. Vitals/I&O/Wt Last Vital Signs Temp 97.8 F 08/17/22 07:09 Pulse 75 08/17/22 07:09 Resp 16 08/17/22 07:09 BP 126/75 08/17/22 07:09 Pulse Ox 98 08/17/22 04:07 O2 Del Method 08/17/22 04:07 O2 Flow Rate 3 08/11/22 18:00 08/16/22 08/17/22 08/17/22 22:59 06:59 14:59 Intake Total 410 / 1370 300 / 300 Output Total 125 / 525 325 / 850 100 / 100 Balance 285 / 845 -325 / 520 200 / 200 Weight last 48 hrs Weight 212 lb Physical Exam Narrative: GENERAL: Patient is alert, awake and oriented x3. [] NECK: No jugular vein distension. [] HEENT: No cyanosis. No icterus. No pallor. [] HEART: Normal heart rate, irregularly irregular rhythm LUNGS: Clear to auscultate bilaterally. [] CENTRAL NERVOUS SYSTEM: Grossly nonfocal. [] EXTREMITIES: Lower extremities with 1+ edema bilaterally. Pulses palpable in the lower extremities, both dorsalis pedis and posterior tibial. [] Urinary Catheter Management: Haq: Cath Placed During This Visit: yes, but has since been removed by the nurse Reason for Continuing Indwelling Catheter: Decision to DC Catheter Urinary Catheter Date of Insertion: 08/08/22 Urinary Catheter Time of Insertion: 05:30 Date Urinary Catheter Removed: 08/15/22 Time Urinary Catheter Discontinued: 14:00 Data 08/17/22 02:16 08/17/22 02:16 A&P Assessment and plan (1) Anemia: Qualifiers: Anemia type: unspecified type Qualified Code(s): D64.9 - Anemia, unspecified (2) Atrial fibrillation: (3) Hypotension: (4) Acute kidney injury: (5) Hypertension: Qualifiers: Hypertension type: essential hypertension Qualified Code(s): I10 - Essential (primary) hypertension Plan Patient is stable. Continue amiodarone. Continue eliquis Echo shows normal LV systolic function. Thank you for involving us with care of this patient. Please call with questions Attestations Medical Necessity Statement*: Care expected to cross 2 midnights. Coding Level of Care Code Acute Code for Chg Fwd Diagnoses Anemia D64.9 Anemia type: unspecified type Atrial fibrillation I48.91 Hypotension I95.9 Acute kidney injury N17.9 Hypertension I10 Hypertension type: essential hypertension
--- NOTE | 2022-08-17 10:30 | PC.CHAP ---
Pastoral Care Encounter/Spiritual Assessment Type of Contact [] Declined senior process control tech visit [] Patient/Family/Request visit [] Outpatient visit [] Follow-up visit [] Physician referral [] Code/Alert [x] Routine visit [] Staff referral [] Actively dying [] Patient sleeping [] Family support [] [] Out of room [] Palliative care [] [x] Receiving care in room [] Pre-surgical visit [] Trauma [x] Long length of stay [] ICU visit [] Other: Relational/Emotional Strength [x] Patient feels connected with others/family/visitors/staff [] Distress [] Loneliness/isolation [] Abandonment Spirituality of Patient [x] Person of Michelle [] Attends Denominational of their Michelle [x] Believes in Prayer [] Reads Bible or Uatsdin materials [] There are Spiritual issues to be addressed Medical Record Coder Interventions [x] Prayer [x] Active listening [x] Non-anxious presence [x] Spiritual/emotional support [] Crisis/trauma care [x] Spiritual counseling [] Bereavement support [] Provided bereavement packet [] Provided Bible/devotional materials [] Provided toy/stuffed animal, coloring book to patient or family member [] Provided Communion [] Anointing/[place] [] Salvation [x] Completed spiritual assessment [] Other: Impact on Illness or Injury [] Angry [] Fearful [x] Anxious [] Often cries [] Exhaustion [x] Unable to work [] Unable to attend christianity [] Unable to walk/stand [] Unable to read [] Unable to drive [] Unable to eat/drink [] Unable to sleep [] Unable to be with family [] Patient intubated [] Other: Summary allerges passing out dizzy spells has a good attitude well go home Time spent with patient 10 mnis
--- NOTE | 2022-08-17 11:32 | P.DS_ITS ---
Discharge Providers Date of Admission: 08/07/22 14:54 Date of Discharge: August 17, 2022 Attending Provider at Admission: Mejia Lawler MD Attending Provider at Discharge: Vladimir Lockwood MD Primary Care Provider: Mallika Ceja MD Diagnoses at Discharge Discharge Diagnosis (1) Atrial fibrillation: Status: Acute (2) Hypotension: Status: Acute (3) Acute kidney injury: Status: Acute (4) Hypertension: Status: Acute Qualifiers: Hypertension type: essential hypertension Qualified Code(s): I10 - Essential (primary) hypertension Reason for Visit Reason for Visit: dizziness/ nausea/ afib Hospital Course Hospital Course 67-year-old male with past medical history of atrial fibrillation not on anticoagulation, alcohol abuse disorder, hypertension, dyslipidemia, palpitations, PVC's/PAC's came in with chief complaint of feeling dizzy, and having some lower blood pressures over the last several days.He is also been nauseated and throwing up over the last several weeks.? He reports he saw Dr. St in clinic for consideration of EGD, but they decided not to do it secondary to his history of gastric bypass.? When he found out his blood pressure was low about a week ago he stopped taking his di ltiazem.During the hospital stay he was managed for A. fib with RVR, initially he was kept on Cardizem drip, but due to hypotension it was stopped, he was started on amiodarone, was loaded with digoxin, was also started on metoprolol, finally he was discharged on amiodarone 200 mg p.o. daily as well as metoprolol tartrate 50 mg p.o. twice daily, Cardizem was discontinued on discharge. His heart rate and blood pressure was well controlled on above regimen.Digoxin was not continued on discharge, patient was on p.o. digoxin during hospital stay, but due to uptrending serum dig level, and, developing confusion, digoxin was stopped during hospital stay, and was not continued on discharge, serum dig level was trending down. Patient was also discharged on low-dose of anticoagulation at least 2.5 p.o. twice daily, H&H is relatively stable, though his FOBT is positive, it is possible that he may not even tolerate low-dose anticoagulation, and it is quite possible that, given his history of chronic alcohol abuse, he may not even be a good candidate for, anticoagulation, patient was also managed for NANCY, likely prerenal NANCY, received, IV fluids during hospital stay, CT abdomen and pelvis was done: Which failed to show any, obstructive uropathy, nephrotoxic's were avoided intake output charting was done, at the time of discharge patient, kidney function had normalized, patient was, making good urine. Patient also had episode of fever during the hospital stay for which she was empirically kept on ceftriaxone, blood culture was negative, Prior to discharge he was afebrile hemodynamically stable no antibiotic was continued on discharge. Patient was also managed for macrocytosis his folate level is low, he was discharged on oral folic acid, electrolytes abnormality correction were taken during hospital stay, overall he responded well to above medical management and was discharged in stable condition [facility]. He will continue to follow cardiology as well as PCP as outpatient. Physical Exam Const: COMMON NORMALS: patient oriented x3 Resp: COMMON NORMALS: normal respiratory effort, No retractions, No use of accessory muscles and clear to auscultation bilaterally EFFORT & INSPECTION: Yes symmetric chest movement AUSCULTATION: clear to auscultation bilaterally Cardio: COMMON NORMALS: No gallops present (Cardio), No murmurs present (Cardio), No rub (Cardio) and Peripheral pulses 2+ throughout PERIPHERAL PULSES: Peripheral pulses 2+ throughout OTHER: Irregularly irregular rhythm, S1-S2 variable intensity GI: COMMON NORMALS: Normal to inspection, nondistended, normoactive bowel sounds present, Soft to palpation, non-tender, No hepatosplenomegaly present and no masses AUSCULTATION: Yes normoactive bowel sounds PALPATION: Yes Soft to palpation and Yes No hepatosplenomegaly present RECTAL EXAM: Yes deferred Extremity: COMMON NORMALS: no clubbing, cyanosis or edema and no pedal edema Neuro: COMMON NORMALS: patient oriented x3 Urinary Catheter Management: Haq: Cath Placed During This Visit: yes, but has since been removed by the nurse Reason for Continuing Indwelling Catheter: Decision to DC Catheter Urinary Catheter Date of Insertion: 08/08/22 Urinary Catheter Time of Insertion: 05:30 Date Urinary Catheter Removed: 08/15/22 Time Urinary Catheter Discontinued: 14:00 Discharge Data Studies Completed and Pending Completed Studies During Hospitalization Category Date Time Status CT abdomen pelvis con [id number] Stat Cat Scan 08/07/22 12:12 Completed XR chest 1V portable [id number] Routine Exams 08/10/22 13:47 Completed XR chest 1V portable [id number] Stat Exams 08/07/22 09:19 Completed XR knee RT 1-2V [id number] Routine Exams 08/10/22 13:53 Completed CV. echo complete* [id number] Routine Ultrasound 08/08/22 14:54 Completed Radiology Impressions Abdomen/Pelvis CT 08/07/22 12:12 IMPRESSION: 1. No small bowel obstruction, abscess or free air. 2. Severe left colon diverticulosis with no strong evidence for active diverticulitis. 3. Postop changes, hepatic steatosis, and other chronic findings above. 4. Trace left effusion with ambl-owlakrd-skey-right bibasilar atelectasis or airspace disease. Advise correlation. COMMENTS: Consistent with the [employer]'s Incidental Findings Committee white paper (J Am Melva Radiol 2018): Any incidental renal lesion less than 1 cm or classified as too small to characterize, or any incidental cystic renal lesion characterized as simple-appearing, is likely benign. No follow-up imaging is recommended for these lesions per consensus recommendations based on imaging criteria. Chest X-Ray 08/10/22 13:47 IMPRESSION: No acute findings. Knee X-Ray 08/10/22 13:53 IMPRESSION: 1. No acute bone abnormality. 2. Severe osteoarthritis 3. Large suprapatellar bursa effusion Laboratory Results WBC 8.3 10^3/uL (4.0-10.0) 08/17/22 02:16 Corrected WBC Cancelled 08/07/22 09:21 RBC 2.74 10^6/uL (4.1-5.3) L 08/17/22 02:16 Hgb 9.2 g/dL (11.7-16.6) L 08/17/22 02:16 Hct 29.2 % (42.0-52.0) L 08/17/22 02:16 MCV 106.6 fl (80-94) H 08/17/22 02:16 MCH 33.6 pg (28.0-34.0) 08/17/22 02:16 MCHC 31.5 g/dL (30.0-36.0) 08/17/22 02:16 RDW 15.4 % (12.1-15.1) H 08/17/22 02:16 Plt Count 409 10^3/cmm (130-400) H 08/17/22 02:16 MPV 11.3 fL (7.4-10.4) H 08/17/22 02:16 Gran % Cancelled 08/07/22 09:21 Neut % (Auto) 83.8 % 08/17/22 02:16 Lymph % (Auto) 6.7 % 08/17/22 02:16 [place] % (Auto) 8.3 % 08/17/22 02:16 Eos % (Auto) 0.0 % 08/17/22 02:16 Baso % (Auto) 0.1 % 08/17/22 02:16 Neut # (Auto) 6.96 10^3/uL (1.8-7.7) 08/17/22 02:16 Lymph # (Auto) 0.6 10^3/uL (0.8-4.8) L 08/17/22 02:16 [place] # (Auto) 0.7 10^3/uL (0.2-0.9) 08/17/22 02:16 Eos # (Auto) 0.0 10^3/uL (0.0-0.8) 08/17/22 02:16 Baso # (Auto) 0.0 10^3/uL (0.0-0.1) 08/17/22 02:16 Absolute Gran (auto) Cancelled 08/07/22 09:21 Nucleated RBC % (auto) 0 % 08/17/22 02:16 Nucleated RBCs # 0.0 /100WBC 08/17/22 02:16 Sodium 140 mmol/L (136-145) 08/17/22 02:16 Potassium 4.0 mmol/L (3.5-5.1) 08/17/22 02:16 Chloride 106 mmol/L (98-107) 08/17/22 02:16 Carbon Dioxide 22 mmol/L (22-29) 08/17/22 02:16 Anion Gap 16.0 (5-19) 08/17/22 02:16 BUN 16 mg/dL (8-23) 08/17/22 02:16 Creatinine 0.9 mg/dL (0.7-1.2) 08/17/22 02:16 GFR Calculation 83.9 mL/min (90-130) L 08/17/22 02:16 Glucose 75 mg/dL (65-115) 08/17/22 02:16 Calculated Osmolality 290 mOsm/kg (285-295) 08/17/22 02:16 Uric Acid 7.0 mg/dL (3.4-7.0) 08/12/22 03:15 Calcium 8.3 mg/dL (8.5-10.5) L 08/17/22 02:16 Phosphorus 3.3 mg/dL (2.5-4.5) 08/14/22 01:01 Magnesium 1.6 mg/dL (1.7-2.3) L 08/14/22 01:01 Total Bilirubin 0.6 mg/dL (0.15-1.2) 08/13/22 03: AST 82 U/L (0-40) H 08/13/22 03:23 ALT 35 U/L (0-41) 08/13/22 03:23 Alkaline Phosphatase 106 U/L (40-130) 08/13/22 03:23 Total Protein 5.2 g/dL (6.6-8.7) L 08/13/22 03:23 Albumin 2.5 g/dL (3.5-5.2) L 08/14/22 01:01 Globulin 3.0 g/dL (1.3-4.6) 08/13/22 03:23 Lipase 22 U/L (13-60) 08/07/22 11:15 Vitamin B12 582 pg/mL (232-1245) 08/07/22 11:15 Folate 3.7 ng/mL (4.5-32.2) L 08/07/22 11:55 TSH 0.95 uIU/mL (0.27-4.20) 08/07/22 11:15 Urine Color Yellow (Yellow) 08/10/22 15:30 Urine Appearance Clear (CLEAR) 08/10/22 15:30 Urine pH 5 (5-7) 08/10/22 15:30 Ur Specific [place] 1.030 (1.005-1.030) 08/10/22 15:30 Urine Protein Neg (Negative) 08/10/22 15:30 Urine Glucose (UA) Norm (Normal) 08/10/22 15:30 Urine Ketones Negative (Negative) 08/10/22 15:30 Urine Blood 2+ (Negative) H 08/10/22 15:30 Urine Nitrate Negative (Negative) 08/10/22 15:30 Urine Bilirubin Neg (Negative) 08/10/22 15:30 Urine Urobilinogen Neg mg/dL (Negative) 08/10/22 15:30 Ur Leukocyte Esterase Negative (Negative) 08/10/22 15:30 Urine RBC None /hpf (0-2) 08/10/22 15:30 Urine WBC None /hpf (0-5) 08/10/22 15:30 Ur Squamous Epith Cells 0-4 /hpf (0-5) H 08/10/22 15:30 Amorphous Sediment Not Reportable 08/10/22 15:30 Urine Bacteria None /hpf (NONE) 08/10/22 15:30 Urine Mucus 2+ /hpf 08/10/22 15:30 Digoxin 1.6 ng/mL (0.6-1.2) H 08/17/22 02:16 Coronavirus 229E (PCR) Not detected (NOT DETECT) 08/10/22 15:30 Influenza Type A Ag negative (Negative) 08/10/22 15:30 Influenza Type B Ag negative (Negative) 08/10/22 15:30 SARS-CoV-2 (PCR) Not detected (NOT DETECT) 08/10/22 15:30 SARS-CoV-2 Ag (Rapid) negative (Negative) 08/15/22 16:00 Vitals Last Vital Signs Temp 97.8 F 08/17/22 07:09 Pulse 75 08/17/22 07:09 Resp 16 08/17/22 07:09 BP 126/75 08/17/22 07:09 Pulse Ox 98 08/17/22 04:07 O2 Del Method 08/17/22 04:07 O2 Flow Rate 3 08/11/22 18:00 Discharge Plan Discharge Patient Disposition: Xfer SNF Condition: Stable Prescriptions: New tamsulosin 0.4 mg Capsule 0.4 mg PO BID 30 Days Qty: 60 3RF pantoprazole 40 mg Tablet,Delayed Release (Dr/Ec) 40 mg PO BID 30 Days Qty: 60 3RF metoprolol tartrate 50 mg Tablet 50 mg PO BID@0900,2100 30 Days Qty: 60 3RF folic acid 1 mg Tablet 1 mg PO DAILY 30 Days Qty: 30 0RF Thera 400 mcg Tablet 1 tab PO DAILY 30 Days Qty: 30 0RF acetaminophen 325 mg Tablet 650 mg PO Q6H PRN (Reason: Mild Pain) 15 Days Qty: 30 0RF Pacerone 200 mg Tablet 200 mg PO DAILY 30 Days Qty: 60 3RF Eliquis 2.5 mg tablet 2.5 mg PO BID Qty: 60 1RF Discontinued diltiazem HCl 120 mg capsule,extended release 12 hr 120 mg PO DAILY tamsulosin 0.4 mg capsule See Rx Instructions .ROUTE .COMPLEX Qty: 180 3RF Dose Instruction: TAKE 1 CAPSULE BY MOUTH TWICE A DAY Rx Instructions: TAKE 1 CAPSULE BY MOUTH TWICE A DAY metoprolol succinate 100 mg tablet extended release 24 hr 100 mg PO BEDTIME Discharge Orders: Discharge Order (Routine); Ordered 08/17/22 Ordered By: Vladimir Lockwood Other Ambulatory Orders: Complete Blood Count w/Auto (Routine) Timeframe: 1 Week Location: Determined by Patient Ordered By: Vladimir Lockwood Referrals: [facility] [Outside] Mallika Ceja MD [Primary Care Provider] - Cassie Denson FNP [Nurse Practitioner] - 1 week Patient Instructions: Opioid Safety Discharge Attestations Time Spent in Discharge Care*: greater than 30 min Status at Discharge: Cognitive status at discharge: cognitively intact , Behavioral status at discharge: cooperative , Quality Metrics Clinical Quality Measures [ No reported AMI, CVA or VTE this stay] Coding Level of Care Code Acute Chg FW DC note Exam Detailed Diagnoses Atrial fibrillation I48.91 Hypotension I95.9 Acute kidney injury N17.9 Hypertension I10 Hypertension type: essential hypertension
[2022-08-17 12:05] VITALS: BP 125/87; RESP 17
[2022-08-17 12:15] VITALS: BP 125/87; RESP 17
--- NOTE | 2022-08-17 13:33 | PC.NURSE ---
transfer report phoned to don at [facility].ready transport here to transport pt now.
== END 2022-08-17 13:34 | disposition skilled nursing facility (03) | DRG 309 ==
LOC: ER 09:35 → ICU 13:50 → CSU 08-11 19:20
PROVIDERS: Internal Medicine; Admitting Provider Internal Medicine; Emergency Provider Family Medicine; PCP Family Medicine; Visit Provider Internal Medicine
DX: I48.91 Unspecified atrial fibrillation (principal); E87.20 Acidosis, unspecified; N17.9 Acute kidney failure, unspecified; I50.22 Chronic systolic (congestive) heart failure; I11.0 Hypertensive heart disease with heart failure; I95.2 Hypotension due to drugs; T46.1X5A Adverse effect of calcium-channel blockers, initial encounter; R41.0 Disorientation, unspecified; T46.0X5A Adverse effect of cardiac-stimulant glycosides and drugs of similar action, initial encounter; R19.5 Other fecal abnormalities; R50.9 Fever, unspecified; D75.89 Other specified diseases of blood and blood-forming organs; N40.1 Benign prostatic hyperplasia with lower urinary tract symptoms; E78.2 Mixed hyperlipidemia; F10.20 Alcohol dependence, uncomplicated; R11.2 Nausea with vomiting, unspecified; E87.6 Hypokalemia; E83.42 Hypomagnesemia; E88.09 Other disorders of plasma-protein metabolism, not elsewhere classified; E87.8 Other disorders of electrolyte and fluid balance, not elsewhere classified; D53.9 Nutritional anemia, unspecified; I25.10 Atherosclerotic heart disease of native coronary artery without angina pectoris; I42.8 Other cardiomyopathies; I65.21 Occlusion and stenosis of right carotid artery; Z79.899 Other long term (current) drug therapy; Z98.84 Bariatric surgery status
CPT/HCPCS: 36415; 51702; 71045; 73560; 74176; 80048; 80053; 80069; 80162; 81001; 81003; 82274; 82607; 82746; 83690; 83735; 84100; 84443; 84550; 85025; 87040; 87426; 87635; 87804; 93005; 93306; 96365; 96366; 96367; 96372; 96375; 97110; 97116; 97161; 97530; 99291; A4222; C9113; J0282; J0456; J0696; J1160; J1644; J2270; J2405; J3411; J3475; J3480; J3490; J7030; J7040; J7050; J7060; J7512

== ENCOUNTER 2022-09-22 07:03 | Outpatient (CLI) | payer MEDICARE, SELFPAY ==
--- NOTE | 2022-09-22 07:30 | CT_ITS ---
WS: [id number] CT RIGHT knee, noncontrast HISTORY: knee pain TECHNIQUE: Protocol for EZEQUIEL total knee replacement has been obtained. This includes axial imaging th rough the RIGHT hip, RIGHT knee and RIGHT ankle. DLP: 961.12 mGy.cm COMPARISON: None available. Pelvis: RIGHT hip arthroplasty. Multiple small bone fragments surrounding the arthroplasty. Also prio r ORIF LEFT hip. RIGHT knee: Moderate to severe tricompartment joint space narrowing with osteophytosis. Very slight l ateral subluxation of patella. Large joint effusion. RIGHT ankle: No destructive bone lesions. Peripheral arterial calcifications. CT/CT knee RT wo con* [id number] IMPRESSION: CT imaging provided for EZEQUIEL robotic total knee replacement.
== END 2022-09-22 07:04 ==
PROVIDERS: PCP Family Medicine; Visit Provider Orthopaedic Surgery
DX: M17.11 Unilateral primary osteoarthritis, right knee (principal)
CPT/HCPCS: 73700; 99213

== ENCOUNTER 2022-10-02 12:10 | Observation (INO) | payer MEDICARE, SELFPAY ==
[2022-09-22 11:47] VITALS: BMI 27.8
--- NOTE | 2022-09-22 12:11 | P.ANESASSM_ITS ---
Pre-Anesthetic Assessment Height/Weight: Height 1.8 m Weight 90.718 kg Preop Diagnosis: High-grade proximal right ICA stenosis Operation Date: 10/02/22 13:05 Proposed Procedures p Right total knee arthroplasty:01196,M17.11(Right) - Ramakrishna Glaser MD Familial anesthetic complications: None Social No alcohol and No tobacco former ETOH Exam alert, oriented x 3, clear to auscultation bilaterally and regular rate & rhythm Airway Mallampati: Class III Dentition: full Pulmonary None reported CV/HEM Atrial Fibrillation (w/ rvr), Congestive Heart Failure and Hypertension 08/21 CONCLUSIONS ?Normal left ventricular size with diminished ejection fraction ?of 45%(visual).? Diffuse hypokinesia of the left ventricle.? ?Patient was found to be in atrial fibrillation during the study. ?Trace mitral valve regurgitation. ?There is no pericardial effusion. ?Estimated pulmonary artery peak systolic pressure of 18 mmHg ?Technically difficult study because of the poor ultrasonic ?window. ?Compared to the study from 05/08/2022 there is slight drop in ?the LV ejection fraction 05/20 CONCLUSIONS ?1. Normal left ventricular size, systolic function and wall ?thickness, with no regional wall motion abnormalities. Left ?ventricular ejection fraction is estimated at 55 %. ?2. Normal right ventricular size and systolic function. ?3. Pulmonary artery pressure estimated at 28 mmHg. ?4. When compared to prior study dated 09/21/2020, left ?ventricular systolic function seems to have improved from 40%. None reported Hepatic None reported GI None reported gastric bypass Metabolic None reported Musc/skel Osteoarthritis/DJD Neuropsych None reported Anesthetic Plan ASA status: 4 Anesthesia: MAC and Regional (specify below) (spinal and adductor) Risk of > 500 ml blood loss (7ml/kg in children): No Medications/Allergies Home Medications Medication Instructions Recorded Confirmed Last Taken Type metoprolol tartrate 50 mg tablet 50 mg PO BID@0900,2100 30 days #60 08/17/22 0 09/22/22 09/22/22 Rx tabs tamsulosin 0.4 mg capsule 0.4 mg PO BID 30 days #60 caps 08/17/22 09/22/22 09/22/22 Rx aspirin 81 mg capsule 81 mg PO DAILY 09/22/22 09/22/22 09/22/22 History Allergies Allergy/AdvReac Type Severity Reaction Status Date / Time No Known Allergies Allergy Verified 09/12/22 09:12 [facility] Anesthesia Medical History Abnormal nuclear stress test Acute kidney injury Alcohol abuse Anemia Atrial fibrillation Atrial fibrillation and flutter Benign essential hypertension with target blood pressure below 140/90 BPH (benign prostatic hyperplasia) BPH loc w urin obs/LUTS BPH loc w urin obs/LUTS Cardiomyopathy Carotid artery disease Right carotid is occluded Carotid artery stenosis without cerebral infarction Community acquired pneumonia Elevated digoxin level Elevated PSA High anion gap metabolic acidosis Hypertension Hypokalemia Hypomagnesemia Hypotension Hypotension Intermittent palpitations Intestinal malrotation Intractable nausea and vomiting Macrocytosis Mixed hyperlipidemia Premature ventricular contractions Somnolence, daytime Systolic heart failure Urinary hesitancy Surgical History History of bariatric surgery Gastric sleeve ([place]) History of left knee surgery History of right hip replacement History of tonsillectomy and adenoidectomy History of ventral hernia repair x 2, supraumbilical, second time with mesh S/P carotid endarterectomy Family History Sister Clotting disorder Father , at age 92 CAD (coronary artery disease) Grandmother Dementia Mother , at age 78 Lung disease Hip fracture Social History Smoking and tobacco status: never smoked Alcohol intake: current Alcohol intake frequency: 3 or more drinks per day Alcohol type: hard liquor Counseling given: Yes Housing: House Marital status: Current occupational status: retired History of recent travel: No Data Anesthesia 09/22/22 12:01 09/22/22 12:01 Cardiac Studies: Echocardiogram 08/08/22 Echocardiogram Ultrasound 09/21/20 Cardiac Event Monitor 11/02/20 Holter Monitor 10/13/19
[2022-09-22 12:17] LABS: Basophils % 0.4 %; Eosinophils # 0.1 10^3/uL (0.0-0.8); Hematocrit 38.4 % (42.0-52.0); Hemoglobin 12.4 g/dL (11.7-16.6); Lymphocytes # 0.5 10^3/uL (0.8-4.8); Lymphocytes % 7.2 %; Mean Corpuscular HGB Conc 32.3 g/dL (30.0-36.0); Mean Corpuscular Hemoglobin 35.7 pg (28.0-34.0); Mean Corpuscular Volume 110.7 fl (80-94); Mean Platelet Volume 11.1 fL (7.4-10.4); Monocytes # 0.9 10^3/uL (0.2-0.9); Monocytes % 12.7 %; Neutrophils # 5.56 10^3/uL (1.8-7.7); Neutrophils % 78.3 %; Nucleated Red Blood Cells % 0 %; Platelet Count 194 10^3/cmm (130-400); Red Blood Count 3.47 10^6/uL (4.1-5.3); Red Cell Distribution Width 18.8 % (12.1-15.1); White Blood Count 7.1 10^3/uL (4.0-10.0)
[2022-09-22 12:27] LABS: Anion Gap 14.5 (5-19); Blood Urea Nitrogen 9 mg/dL (8-23); Calcium 8.8 mg/dL (8.5-10.5); Carbon Dioxide 22 mmol/L (22-29); Chloride 104 mmol/L (98-107); Glomerular Filtration Rate 112.1 mL/min (90-130); Glucose 111 mg/dL (65-115); Osmolality Calculated 283 mOsm/kg (285-295); Potassium 3.5 mmol/L (3.5-5.1); Sodium 137 mmol/L (136-145)
[2022-10-02] VITALS (21 sets, daily range): BP systolic 99–145; BP diastolic 76–107; PULSE 89–113; RESP 16–19; TEMP 36.1–36.8; O2SAT 91–100
[2022-10-02] MEDS: CELEcoxib 200 mg Capsule 400 MG PO (08:21)
[2022-10-02] MEDS: acetaminophen 500 mg Tablet 1000 MG PO ×2 (08:21→15:46)
[2022-10-02] MEDS: gabapentin 300 mg Capsule PO (08:22)
[2022-10-02] MEDS: oxyCODONE 20 mg ER (12 HR) Tablet PO (08:22)
[2022-10-02] MEDS: sodium chloride 0.9% 1,000 ML 30 ML IV (08:23)
--- NOTE | 2022-10-02 08:39 | P.ANESUD_ITS ---
Pre-Anesthetic Update Pre-Anesthetic Assessment: Date of Surgery/Procedure: 10/02/22 Preop Kira gnosis: Osteoarthritis Right Knee Proposed Procedure: Operation Date: 10/02/22 09:50 Proposed Procedures p Demetrius Robot Total Knee Arthroplasty(Right) - Ramakrishna Glaser MD Any changes to Pre-Anesthetic Assessment?: No Last Intake: Intake Last Liquid Date 10/01/22 Last Liquid Time 21:00 Last Solid Date 10/01/22 Last Solid Time 16:00 Vitals: Temperature 97 F L 10/02/22 07:54 Temperature Source Temporal Artery S can 10/02/22 07:54 Pulse Rate 94 10/02/22 07:54 Respiratory Rate 18 10/02/22 08:22 Respiratory Depth Normal 10/02/22 08:22 Respiratory Patter n 10/02/22 08:22 Blood Pressure 145/107 10/02/22 07:54 Blood Pressure Corinne n 119 10/02/22 07:54 Pulse Oximetry 99 10/02/22 08:22 Oxygen Delivery Me thod 10/02/22 08:04 Exam: Pre-Anes Outpt Exam: alert, oriented x 3, clear to auscultation bilaterally and regular rate & rhythm Cardiac Studies: Echocardiogram 08/08/22 Echocardiogram Ultrasound 09/21/20 Cardiac Event Monitor 11/02/20 Holter Monitor 10/13/19
--- NOTE | 2022-10-02 08:39 | ANES.PROC ---
Anesthesia Procedures Procedure/Date: 10/02/22 Nerve Block ^: Nerve Block 1: Main Anesthesia: spinal anesthesia block Time Out Performed: Yes Consent: requested by attending/covering physician, from patient, from other, risks and benefits reviewed and patient agrees to proceed Anesthesia monitors applied: pulse oximetry, EKG, BP cuff and oxygen Nerve block position: supine Anesthetic Used: ropivicaine 0.5% (30 ml) and with decadron (4 mg) Ultrasound used to: recognize landmarks and visualize and ID femerol nerve Nerve Stimulator Used?: No Interscalene/Femoral BLK: 4 stimuplex 21 g needle used for position and inplane approach, visualize local anesthetic spread and no vascular puncture identified Patient Tolerated Procedure: well and no complications Complications: none
--- NOTE | 2022-10-02 09:18 | P.HP_ITS ---
Same Day Surgery H&P Indication for Procedure/HPI DATE OF PROCEDURE: October 02, 2022 CHIEF COMPLAINT/INDICATIONFOR SURGICAL PROCEDURE: Osteoarthritis right knee here for total knee arthroplasty PREOP DIAGNOSIS: Osteoarthritis Right Knee PLANNED PROCEDURE: Operation Date: 10/02/22 09:50 Proposed Procedures p Demetrius Robot Total Knee Arthroplasty(Right) - Ramakrishna Glaser MD 67-year-old male here for elective right total knee arthroplasty. He describes continued severe pain in the right knee.? He states he has constant swelling.? It is nearly impossible for him to ambulate any more than 50 feet or so without discomfort.? In the past he has worked he is unable to do that.? He now relies on a cane in his left hand for support but even that is not helpful.? He reports that he recently has been hospitalized for renal failure.? He has a history of alcohol abuse but states he has been clean for the last month. Medications/Allergies* Home Medications Medication Instructions Recorded Confirmed Type aspirin 81 mg capsule 81 mg PO DAILY 09/22/22 09/22/22 History Allergies/Adverse Reactions Allergy/AdvReac Type Severity Reaction Status Date / Time No Known Allergies Allergy Verified 10/02/22 07:43 Current Medications: Generic Name Dose Route Start Last Admin Trade Name Freq PRN Reason Stop Dose Admin Sodium Chloride 1,000 mls @ 30 mls/hr 10/02/22 07:30 10/02/22 08:23 Sodium Chloride 0.9% IV 10/03/22 07:29 30 mls/hr .Q24H ARNAV Administration Pertinent History/Comorbid Conditions* Medical History (Updated 09/12/22 @ 09:26 by Ramakrishna Glaser MD) Abnormal nuclear stress test Acute kidney injury Alcohol abuse Anemia Atrial fibrillation Atrial fibrillation and flutter Benign essential hypertension with target blood pressure below 140/90 BPH (benign prostatic hyperplasia) BPH loc w urin obs/LUTS BPH loc w urin obs/LUTS Cardiomyopathy Carotid artery disease Right carotid is occluded Carotid artery stenosis without cerebral infarction Community acquired pneumonia Elevated digoxin level Elevated PSA High anion gap metabolic acidosis Hypertension Hypokalemia Hypomagnesemia Hypotension Hypotension Intermittent palpitations Intestinal malrotation Intractable nausea and vomiting Macrocytosis Mixed hyperlipidemia Premature ventricular contractions Somnolence, daytime Systolic heart failure Urinary hesitancy Surgical History (Updated 08/18/22 @ 00:00 by BARBARA Cooper) History of bariatric surgery Gastric sleeve ([place]) History of left knee surgery History of right hip replacement History of tonsillectomy and adenoidectomy History of ventral hernia repair x 2, supraumbilical, second time with mesh S/P carotid endarterectomy Family History (Updated 03/28/22 @ 09:44 by Cassie Johnson LPN) Father, at age 92 Mother, at age 78 Hip fracture Mother CAD (coronary artery disease) Father Clotting disorder Sister Dementia Grandmother Lung disease Mother Social History Smoking and tobacco status: never smoked Alcohol intake: current Alcohol intake frequency: 3 or more drinks per day Alcohol type: hard liquor Counseling given: Yes Housing: House Marital status: Current occupational status: retired History of recent travel: No Pertinent Exam Findings alert, oriented x 3, clear to auscultation bilaterally, regular rate & rhythm and operative site marked Right knee Moderate effusion 15 degrees short of full extension to 10 0 degrees of flexion Tenderness medial joint line Patella tracks well Collateral ligaments stable MOTOR: Strong quadriceps hamstrings tibialis anterior and extensor houses longus strength SENSATION: Intact to light touch Recommendations Surgery/Procedure today Coding Level of Care Code Acute Code for Chg Fwd
[2022-10-02] MEDS: ceFAZolin 2,000 MG in sodium chloride 0.9% (plus) 50 ML 100 MG IV ×2 (10:20→18:11)
[2022-10-02] MEDS: tranexamic acid 1,000 mg/10mL SDV 1000 MG IV (11:00)
[2022-10-02] MEDS: ketorolac 30 mg/mL INJ XX (11:14)
[2022-10-02] MEDS: tranexamic acid 1,000 mg/10mL SDV 1000 MG XX (11:14)
[2022-10-02] MEDS: EPINEPHrine 1 mg/mL INJ XX (11:14)
[2022-10-02] MEDS: sodium chloride 0.9% 100 mL Bag XX (11:14)
--- NOTE | 2022-10-02 12:23 | PM.OP ---
Operative Report Date of procedure: October 02, 2022 Pre-op diagnosis: Preop Diagnosis Osteoarthritis Right Knee Post-op diagnosis: same Post-op diagnosis: Same Post-op findings: Same Procedure done: [] total knee arthroplasty Implants: [employer] Triathalon total knee arthroplasty components were used includin) Size 6 triathalon cruciate retaining femoral component 2) Size 6 Tritanium tibial component 3) Size 6/11 mm thickness CS tibial bearing insert Pathology: none sent Surgeon: Ramakrishna Glaser Job Forwarder: Gregorio Hager Job Forwarder: The nurse practitioner the nurse practitioner assisted with critical portions of the case including positioning, draping, exposure, component implantation, closure and dressing application and is present through the entirety of the case. Anesthesia: General and Nerve Block (Adductor canal block) Estimated blood loss (mL): 300 Findings: The patient eburnated bone over the medial femoral condyle medial tibial plateau with medial osteophytes. He had eburnated bone and osteophytes about the patella and trochlea, Condition: stable Disposition: PACU Procedure: The patient was taken to the operating room. Patient was given 1 g of tranexamic acid and 2 g of Ancef. The above anesthesia provided by the anesthesia service. A timeout was performed. The patient was prepped and draped in the usual fashion with the lower extremity exposed. A anterior incision was made, midline, from a point proximal to the patella to the distal tibial tubercle. The knee was entered through a medial parapatellar approach. The patella could be displaced laterally and the knee flexed. The patellar fat pad was resected to provide better visibility. Retractors were placed medially and laterally adjacent to the tibial plateau. At a point approximately 8 cm above the patella, 2 small incisions were made with a scalpel blade and 2 long threaded pins were placed into the anterior medial femur engaging both cortices. The femoral arrays were placed over these pins and secured. At a point 8 cm distal to the tibial tubercle. 2 shorter bicortical threaded pins were placed across the anterior medial tibia and the tibial arrays placed. A checkpoint was made just proximal and medial to the medial femoral condyle and just medial to the tibial plateau. Small osteotomes were placed in the joint in both flexion and extension to determine ligamentous laxity. The femoral component was externally rotated additional 2 degrees and lowered 2 mm and the tibial component an additional 1 degree valgus to balance the knee.. The [employer] robot was then introduced to the field and the femur and tibia cut in accordance with our plan. he [employer] Fastseal was then used to provide hemostasis, particularly about the posterior capsule. A trial with the above components provided excellent stability and full range of motion. The femur was then prepared for the femoral pegs of the component in the tibia for the tibial component. The femur and tibia were then press-fit into place. An osteotome was used to remove the lateral 8 mm of the patella to minimize chances of later impingement. A neurectomy was accomplished circumferentially about the patella with electrocautery and lateral osteophytes removed. Surfaces were cleaned with a gentamicin solution. The femur and tibia were then press-fit into place. The posterior capsule and collateral ligaments were then injected with a solution of 100 mL of 0.2% ropivacaine, 1 mL of a 1:1000 epinephrine solution, 30 mg of Toradol, and 1 g of tranexamic acid. Final polyethylene component was then snapped into place into the tibia. The extensor retinaculum was closed with a running 1 Stratafix interrupted 1 Ethibond. The subcutaneous tissues were closed with 2-0 Vicryl and the skin was closed with a running 4-0 Stratafix. The wound was covered with a Dermabond Prineo dressing. It was covered with 4xrs and a compressive Tubigauze was applied. The patient was taken to recovery room in stable condition.
--- NOTE | 2022-10-02 12:28 | XRR_ITS ---
PROCEDURE INFORMATION: Exam: XR Right Knee Exam date and time: 10/03/2022 12:51 AM Age: 67 years old Clinical indication: Device placement; Joint replacement hardware; Prior surgery; Surgery date: Post-operative (0-2 days); Surgery type: Right total knee arthroplasty TECHNIQUE: Imaging protocol: Radiologic exam of the right knee. Views: 1 or 2 views. COMPARISON: CT knee RT wo con* [id number] 09/22/2022 7:47 AM FINDINGS: Bones/joints: Prior knee arthroplasty. No periprosthetic lucency. No acute fracture. No dislocation. Soft tissues: Postoperative soft tissue changes. XR/XR knee RT 1-2V [id number] IMPRESSION: Postoperative changes.
--- NOTE | 2022-10-02 13:06 | ANE.PACU2 ---
Inpatient post-anesthesia follow up: Airway intact: Yes Vital signs: Temperature 97 F Pulse Rate 94 Respiratory Rate 18 Blood Pressure 145/107 Pulse Oximetry 99 Oxygen Delivery Me thod Room Air Oxygen Flow Rate 6 Fraction of Inspir ed Oxygen Hydration adequate: Yes Nausea and vomiting: No Pain level: 1 Mental status: Baseline
[2022-10-02] MEDS: sodium chloride 0.9% 1,000 ML 100 ML IV (15:45)
[2022-10-02] MEDS: sennosides-docusate Tablet 2 TAB PO (18:12)
[2022-10-02] MEDS: tamsulosin 0.4 mg Capsule PO (18:12)
[2022-10-02] MEDS: metoprolol tartrate 50 mg Tablet PO (21:44)
[2022-10-02] MEDS: CELEcoxib 200 mg Capsule PO (21:45)
[2022-10-03] VITALS (8 sets, daily range): BP systolic 102–133; BP diastolic 69–92; PULSE 83–118; RESP 16–118; TEMP 36.4–36.8; O2SAT 94–99
[2022-10-03] MEDS: acetaminophen 500 mg Tablet 1000 MG PO ×3 (00:39→15:51)
[2022-10-03] MEDS: sodium chloride 0.9% 1,000 ML 100 ML IV (00:40)
[2022-10-03] MEDS: ceFAZolin 2,000 MG in sodium chloride 0.9% (plus) 50 ML 100 MG IV ×2 (01:51→10:33)
[2022-10-03] MEDS: oxyCODONE 5 mg IR Tab/Cap PO ×3 (04:59→18:04)
[2022-10-03 05:45] LABS: Hemoglobin 12.5 g/dL (11.7-16.6)
--- NOTE | 2022-10-03 06:47 | PC.NURSE ---
Patient's young catheter was removed according to protocol. Catheter tip intact upon removal. Patient tolerated well.
[2022-10-03] MEDS: tamsulosin 0.4 mg Capsule PO ×2 (08:08→17:57)
[2022-10-03] MEDS: CELEcoxib 200 mg Capsule PO ×2 (08:08→20:13)
[2022-10-03] MEDS: aspirin 81 mg EC Tablet PO (08:08)
[2022-10-03] MEDS: metoprolol tartrate 50 mg Tablet PO ×2 (08:11→20:13)
--- NOTE | 2022-10-03 08:12 | PC.NURSE ---
Notified Dr. Glaser patient refuses Sennosides.
--- NOTE | 2022-10-03 08:17 | PC.NURSE ---
Dr. Glaser stated to stop fluids. After antibiotics are complete, IV can come out.
--- NOTE | 2022-10-03 08:43 | P.PN_ITS ---
Subjective Subjective: Pain adequately controlled with meds. Did well with therapy yesterday. Vitals/I&O/Wt Last Vital Signs Temp 98.1 F 10/03/22 04:00 Pulse 92 10/03/22 04:00 Resp 16 10/03/22 04:59 BP 127/84 10/03/22 04:00 Pulse Ox 99 10/03/22 04:00 O2 Del Method 10/02/22 17:00 O2 Flow Rate 1 10/02/22 15:54 10/02/22 10/03/22 10/03/22 22:59 06:59 14:59 Intake Total 650 / 800 1181.667 / 1981.667 Output Total 300 / 800 Balance 650 / 300 881.667 / 1181.667 Physical Exam Narrative: Right knee dressing clean and dry. Minimal swelling Urinary Catheter Management: Haq: Cath Placed During This Visit: yes Urinary Catheter Date of Insertion: 10/02/22 Urinary Catheter Time of Insertion: 10:45 Data 10/03/22 05:27 09/22/22 12:01 A&P Assessment and plan (1) Status post right knee replacement: Continue to mobilize with therapy. Will need detention as poor support at home. Attestations Medical Necessity Statement*: Awaiting detention placement Coding Level of Care Code Acute Code for Chg Fwd Diagnoses Status post right knee replacement Z96.651
--- NOTE | 2022-10-03 10:46 | PC.CHAP ---
Pastoral Care Encounter/Spiritual Assessment Type of Contact [] Declined lan/wan engineer visit [] Patient/Family/Request visit [] Outpatient visit [] Follow-up visit [] Physician referral [] Code/Alert [x] Routine visit [] Staff referral [] Actively dying [] Patient sleeping [] Family support [] [] Out of room [] Palliative care [] [] Receiving care in room [] Pre-surgical visit [] Trauma [] Long length of stay [] ICU visit [] Other: Relational/Emotional Strength [x] Patient feels connected with others/family/visitors/staff [] Distress [] Loneliness/isolation [] Abandonment Spirituality of Patient [x] Person of Michelle [] Attends Caodaism of their Michelle [x] Believes in Prayer [] Reads Bible or Anabaptism materials [] There are Spiritual issues to be addressed Laundry Manager Interventions [x] Prayer [x] Active listening [] Non-anxious presence [] Spiritual/emotional support [] Crisis/trauma care [] Spiritual counseling [] Bereavement support [] Provided bereavement packet [] Provided Bible/devotional materials [] Provided toy/stuffed animal, coloring book to patient or family member [] Provided Communion [] Anointing/[place] [] Salvation [x] Completed spiritual assessment [] Other: Impact on Illness or Injury [] Angry [] Fearful [] Anxious [] Often cries [] Exhaustion [] Unable to work [] Unable to attend oriental orthodox [] Unable to walk/stand [] Unable to read [] Unable to drive [] Unable to eat/drink [] Unable to sleep [] Unable to be with family [] Patient intubated [] Other: Summary Time spent with patient 10 min
[2022-10-03] MEDS: sennosides-docusate Tablet 2 TAB PO (17:57)
[2022-10-04] VITALS: BP 106/72; PULSE 82; RESP 17; TEMP 36.4; O2SAT 99
[2022-10-04] MEDS: acetaminophen 500 mg Tablet 1000 MG PO ×2 (00:42→08:02)
[2022-10-04 04:00] VITALS: BP 117/79; PULSE 90; RESP 17; TEMP 36.4; O2SAT 96
[2022-10-04 08:00] VITALS: BP 129/87; PULSE 113; RESP 18; TEMP 36.4; O2SAT 98
[2022-10-04] MEDS: sennosides-docusate Tablet 2 TAB PO (08:02)
[2022-10-04] MEDS: CELEcoxib 200 mg Capsule PO (08:03)
[2022-10-04] MEDS: tamsulosin 0.4 mg Capsule PO (08:03)
[2022-10-04] MEDS: aspirin 81 mg EC Tablet PO (08:03)
--- NOTE | 2022-10-04 08:23 | PM.DCS ---
Discharge Providers Date of Admission: 10/02/22 12:10 Date of Discharge: October 04, 2022 Attending Provider at Admission: Ramakrishna Glaser MD Attending Provider at Discharge: Ramakrishna Glaser MD Primary Care Provider: Mallika Ceja MD Diagnoses at Discharge Discharge Diagnosis (1) Status post right knee replacement: Status: Acute (2) Osteoarthritis of right knee: Status: Resolved Reason for Visit Reason for Visit: erika Brief History: The patient is a 67-year-old male with chronic right knee pain unresponsive to conservative measures. He is admitted for elective right total knee arthroplasty Hospital Course Hospital Course The patient tolerated surgery well. They remained hemodynamically stable. They was begun on aspirin and foot pumps for DVT prophylaxis. The patient was mobilized with therapy beginning the day of surgery. Initial plans were for prison discharge as he had little help at home. Over the following days he made steady improvement. As the pain was adequately controlled and they were fully mobile they were discharged home. Physical Exam Narrative: On the day of discharge the knee incision was clean. They had no drainage. There is minimal swelling in the thigh and knee and the calf. No distal neurovascular deficits were noted Urinary Catheter Management: Haq: Cath Placed During This Visit: yes Urinary Catheter Date of Insertion: 10/02/22 Urinary Catheter Time of Insertion: 10:45 Discharge Data Studies Completed and Pending Completed Studies During Hospitalization Category Date Time Status XR knee RT 1-2V [id number] Routine Exams 10/02/22 12:28 Completed Radiology Impressions Knee X-Ray 10/02/22 12:28 IMPRESSION: Postoperative changes. Laboratory Results WBC 7.1 10^3/uL (4.0-10.0) 09/22/22 12:01 RBC 3.47 10^6/uL (4.1-5.3) L 09/22/22 12:01 Hgb 12.5 g/dL (11.7-16.6) 10/03/22 05:27 Hct 38.4 % (42.0-52.0) L 09/22/22 12:01 MCV 110.7 fl (80-94) H 09/22/22 12:01 MCH 35.7 pg (28.0-34.0) H 09/22/22 12:01 MCHC 32.3 g/dL (30.0-36.0) 09/22/22 12:01 RDW 18.8 % (12.1-15.1) H 09/22/22 12:01 Plt Count 194 10^3/cmm (130-400) 09/22/22 12:01 MPV 11.1 fL (7.4-10.4) H 09/22/22 12:01 Neut % (Auto) 78.3 % 09/22/22 12:01 Lymph % (Auto) 7.2 % 09/22/22 12:01 Andrew % (Auto) 12.7 % 09/22/22 12:01 Eos % (Auto) 1.0 % 09/22/22 12:01 Baso % (Auto) 0.4 % 09/22/22 12:01 Neut # (Auto) 5.56 10^3/uL (1.8-7.7) 09/22/22 12:01 Lymph # (Auto) 0.5 10^3/uL (0.8-4.8) L 09/22/22 12:01 Andrew # (Auto) 0.9 10^3/uL (0.2-0.9) 09/22/22 12:01 Eos # (Auto) 0.1 10^3/uL (0.0-0.8) 09/22/22 12:01 Baso # (Auto) 0.0 10^3/uL (0.0-0.1) 09/22/22 12:01 Nucleated RBC % (auto) 0 % 09/22/22 12:01 Nucleated RBCs # 0.0 /100WBC 09/22/22 12:01 Sodium 137 mmol/L (136-145) 09/22/22 12:01 Potassium 3.5 mmol/L (3.5-5.1) 09/22/22 12:01 Chloride 104 mmol/L (98-107) 09/22/22 12:01 Carbon Dioxide 22 mmol/L (22-29) 09/22/22 12:01 Anion Gap 14.5 (5-19) 09/22/22 12:01 BUN 9 mg/dL (8-23) 09/22/22 12:01 Creatinine 0.7 mg/dL (0.7-1.2) 09/22/22 12:01 GFR Calculation 112.1 mL/min (90-130) 09/22/22 12:01 Glucose 111 mg/dL (65-115) 09/22/22 12:01 Calculated Osmolality 283 mOsm/kg (285-295) L 09/22/22 12:01 Calcium 8.8 mg/dL (8.5-10.5) 09/22/22 12:01 Vitals Last Vital Signs Temp 97.6 F 10/04/22 08:00 Pulse 113 H 10/04/22 08:00 Resp 18 10/04/22 08:00 BP 129/87 10/04/22 08:00 Pulse Ox 98 10/04/22 08:00 O2 Del Method 10/04/22 08:00 O2 Flow Rate 1 10/02/22 15:54 Discharge Plan Discharge Patient Disposition: Home Condition: Stable Prescriptions: New oxycodone 5 mg Tablet 5 mg PO Q4H PRN (Reason: Moderate Pain) 7 Days Qty: 40 0RF acetaminophen 500 mg Tablet 1,000 mg PO Q8H 14 Days Qty: 84 0RF celecoxib 200 mg Capsule 200 mg PO Q12H 14 Days Qty: 28 0RF Continued tamsulosin 0.4 mg Capsule 0.4 mg PO BID 30 Days Qty: 60 3RF metoprolol tartrate 50 mg Tablet 50 mg PO BID@0900,2100 30 Days Qty: 60 3RF aspirin 81 mg Capsule 81 mg PO DAILY Discharge Orders: Discharge Order (Routine); Ordered 10/04/22 Ordered By: Ramakrishna Glaser Referrals: Gregorio Hager FNP [Physician [facility]] - 10/31/22 9:45 am Discharge Diet: Advance as tolerated Discharge Activity: Limit activity as instructed Patient Instructions: Opioid Safety Activity Restrictions/Additional Instructions: Okay to shower Keep Tubigauze sleeve in place for swelling. Okay to remove for hygiene. Apply FirstIce up to 20 min/hr for pain and swelling Take Celebrex twice a day for the next 15 days for pain , discontinue other anti-inflammatories Take Tylenol 500mg (2 tabs) as needed 3 times a day for mild pain Take oxycodone for breakthrough pain. Exercises per physical therapy. May weight-bear as tolerated on total knee arthroplasty IF HAVE ANY PROBLEMS OR QUESTIONS CALL HOSPITAL DIRECTOR EMBALMER AT AND ASK TO HAVE DR. EDUARDO SORIANO. Discharge Attestations Time Spent in Discharge Care*: other Status at Discharge: Cognitive status at discharge: cognitively intact, Behavioral status at discharge: cooperative, Quality Metrics Clinical Quality Measures [ No reported AMI, CVA or VTE this stay] Coding Level of Care Code Acute Code for Chg Fwd Diagnoses Status post right knee replacement Z96.651 Osteoarthritis of right knee M17.11
[2022-10-04] MEDS: metoprolol tartrate 50 mg Tablet PO (08:29)
--- NOTE | 2022-10-04 09:35 | PC.NURSE ---
Patients discharge paperwork ready, attempted to go over his d/c plans and patient stopped me, I'm supposed to have another round of physical therapy at 11am. So I am staying for that. Paperwork placed back with chart at this time.
[2022-10-04 10:15] VITALS: BP 129/87; PULSE 113; RESP 18; TEMP 36.4; O2SAT 98
[2022-10-04 11:53] VITALS: RESP 16
[2022-10-04] MEDS: oxyCODONE 5 mg IR Tab/Cap PO (11:53)
== END 2022-10-04 12:16 | disposition home health service (06) ==
LOC: MEDSURG 12:11
PROVIDERS: Anesthesiology; Admitting Provider Orthopaedic Surgery; PCP Family Medicine; Visit Provider Orthopaedic Surgery
PROC: 8E0Y0CZ Robotic Assisted Procedure of Lower Extremity, Open Approach (ICD-10-PCS; CPT 27447; principal; 2022-10-02 09:20)
DX: M17.11 Unilateral primary osteoarthritis, right knee (principal); I48.91 Unspecified atrial fibrillation; I10 Essential (primary) hypertension; G89.29 Other chronic pain; Z96.641 Presence of right artificial hip joint
CPT/HCPCS: 20985; 27447; 36415; 51702; 73560; 80048; 85018; 85025; 97110; 97116; 97161; 97165; 97530; C1776; G0378; J0171; J0690; J1100; J1170; J1580; J1885; J2250; J2405; J2704; J2795; J3010; J3490; J7030

== ENCOUNTER 2022-10-28 23:36 | Inpatient (IN) | payer MEDICARE, SELFPAY ==
[2022-10-28 23:39] VITALS: BP 120/85; PULSE 88; RESP 18; TEMP 36.9; O2SAT 97; BMI 29.2
--- NOTE | 2022-10-28 23:42 | ECG_ITS ---
[facility] Test Date: 2022-10-29 Pat Name: Ethan Hardy Department: Room: 105 Gender: Male Hospice Art Therapist: : [id number] Requested By: Craig Mcguire Order Number: [id number] Reading MD: Jase Diaz Measurements Intervals [place] Rate: 103 P: 0 ME: 0 QRS: 47 QRSD: 106 T: 92 QT: 342 QTc: 448 Interpretive Statements ATRIAL FIBRILLATION WITH RAPID VENTRICULAR RESPONSE WITH ABERRANT CONDUCTION OR VENTRICULAR PREMATURE COMPLEXES NONSPECIFIC T-WAVE ABNORMALITY ABNORMAL RHYTHM ECG Compared to ECG 08/07/2022 09:25:04 No significant changes Electronically Signed On 10-29-2022 18:58:35 CDT by Jase Diaz [id number]
--- NOTE | 2022-10-28 23:53 | W.ED.WEAKNES ---
Documented by User: NATHAN Renee 10/29/22 02:57 HPI - Weakness General: Chief complaint: Weakness Stated complaint: WEAKNESS Time Seen by Provider: 10/28/22 23:42 History of Present Illness: 67-year-old male patient comes in today for complaints of generalized weakness and inability to get up out of bed for the last 5 days. Patient states that he has been unable to stand and walk for 5 days. Patient had a knee replacement he reports 4 weeks ago. 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 Patient stopped drinking alcohol many years ago he states though. Patient appears nontoxic. Patient is incontinent of urine. Patient lives at home with his brother and [id number]. Patient has a history of atrial fib that is controlled with metoprolol. Patient has a history of a gastric sleeve. Associated symptoms: Denies chest pain, fever(s), headache(s), nausea or vomiting Review of Systems General: Reports: 10 or more systems reviewed and unremarkable except in HPI and below Const: Denies: fever(s) ENMT: Denies: throat pain Card: Denies: chest pain Resp: Denies: dyspnea GI: Denies: nausea, vomiting, diarrhea or constipation : Reports: urinary dribbling and urinary incontinence Musc: Reports: muscle weakness Neuro: Reports: weakness in extremities (Lower extremities); Denies: headache(s) PFSH ED PFSH: Medical History Abnormal nuclear stress test Acute kidney injury Alcohol abuse Anemia Atrial fibrillation Atrial fibrillation and flutter Benign essential hypertension with target blood pressure below 140/90 BPH (benign prostatic hyperplasia) BPH loc w urin obs/LUTS BPH loc w urin obs/LUTS Cardiomyopathy Carotid artery disease Right carotid is occluded Carotid artery stenosis without cerebral infarction Community acquired pneumonia Elevated digoxin level Elevated PSA High anion gap metabolic acidosis Hypertension Hypokalemia Hypomagnesemia Hypotension Hypotension Intermittent palpitations Intestinal malrotation Intractable nausea and vomiting Macrocytosis Mixed hyperlipidemia Premature ventricular contractions Somnolence, daytime Systolic heart failure Urinary hesitancy Surgical History History of bariatric surgery Gastric sleeve ([place]) History of left knee surgery History of right hip replacement History of tonsillectomy and adenoidectomy History of ventral hernia repair x 2, supraumbilical, second time with mesh S/P carotid endarterectomy Family History Sister Clotting disorder Father , at age 92 CAD (coronary artery disease) Grandmother Dementia Mother , at age 78 Lung disease Hip fracture Social History Smoking and tobacco status: never smoked Alcohol intake: current Alcohol intake frequency: 3 or more drinks per day Alcohol type: hard liquor Counseling given: Yes Housing: House Marital status: Current occupational status: retired Physical Exam Const: COMMON NORMALS: alert HENMT: COMMON NORMALS: normocephalic HEAD & SCALP: normocephalic Neck/C-Spine: COMMON NORMALS: full ROM Chest: COMMONS NORMALS: normal inspection of the chest Resp: COMMON NORMALS: normal respiratory effort and clear to auscultation bilaterally AUSCULTATION: clear to auscultation bilaterally Cardio: COMMON NORMALS: regular rate RATE: regular rate GI: COMMON NORMALS: Soft to palpation and non-tender PALPATION: Yes Soft to palpation : COMMON NORMALS: Yes no CVA tenderness BLADDER/KIDNEY EXAM: Yes no CVA tenderness Back/Pelvis: COMMON NORMALS: no CVA tenderness Extremity: COMMON NORMALS: normal to inspection Neuro: SENSORIUM/ORIENTATION: Yes alert GAIT: Yes Unable to assess gait SENSORY EXAM: Yes extremities Skin: NARRATIVE SKIN EXAM: Stage II-III decubitus to the sacrum. Course Vital Signs: Vital signs: Vital Signs Temperature 97.7 F 10/29/22 12:00 Pulse Rate 101 H 10/29/22 12:00 Respiratory Rate 19 H 10/29/22 12:00 Blood Pressure 115/79 10/29/22 12:00 Pulse Oximetry 99 10/29/22 12:00 Oxygen Delivery Me thod 10/29/22 12:00 MDM - Weakness Medical Decision Making 67-year-old male patient comes in today due to not being able to get out of bed for the last 5 days. Patient reports just urine dribbling and no stool. Patient denies any pain. Patient had a knee replacement he reports 40 weeks ago. Incision line is well-healed. Patient has generalized weakness to bilateral lower extremities and unable to hold legs up off the bed. Pulses and sensation are intact. Patient is incontinent of urine. Patient moves upper extremities without difficulty. Vital signs are normal. Differential diagnosis includes but not limited to urinary tract infection, failure to thrive, dementia, dehydration. Lab Data 10/29/22 00:50 04 00:50 Radiology Impressions Chest X-Ray 10/29/22:13 IMPRESSION: No acute findings. Head CT 10/29/22 00:13 IMPRESSION: There are no acute intracranial findings. Stable head CT compared with 09/20/2020. Laboratory Results WBC 8.0 10^3/uL (4.0-10.0) 10/29/22 00:50 RBC 3.84 10^6/uL (4.1-5.3) L 10/29/22 00:50 Hgb 13.1 g/dL (11.7-16.6) 10/29/22 00:50 Hct 40.3 % (42.0-52.0) L 10/29/22 00:50 MCV 104.9 fl (80-94) H 04 00:50 MCH 34.1 pg (28.0-34.0) H 10/29/22 00:50 MCHC 32.5 g/dL (30.0-36.0) 10/29/22 00:50 RDW 14.6 % (12.1-15.1) 10/29/22 00:50 Plt Count 228 10^3/cmm (130-400) 10/29/22 00:50 MPV 10.2 fL (7.4-10.4) 10/29/22 00:50 Neut % (Auto) 84.0 % 10/29/22 00:50 Lymph % (Auto) 4.0 % 10/29/22 00:50 [place] % (Auto) 10.8 % 10/29/22 00:50 Eos % (Auto) 0.2 % 10/29/22 00:50 Baso % (Auto) 0.5 % 10/29/22 00:50 Neut # (Auto) 6.75 10^3/uL (1.8-7.7) 10/29/22 00:50 Lymph # (Auto) 0.3 10^3/uL (0.8-4.8) L 10/29/22 00:50 [place] # (Auto) 0.9 10^3/uL (0.2-0.9) 10/29/22 00:50 Eos # (Auto) 0.0 10^3/uL (0.0-0.8) 10/29/22 00:50 Baso # (Auto) 0.0 10^3/uL (0.0-0.1) 10/29/22 00:50 Nucleated RBC % (auto) 0 % 10/29/22 00:50 Nucleated RBCs # 0.0 /100WBC 10/29/22 00:50 Sodium 140 mmol/L (136-145) 10/29/22 00:50 Potassium 4.0 mmol/L (3.5-5.1) 10/29/22 00:50 Chloride 99 mmol/L (98-107) 10/29/22 00:50 Carbon Dioxide 15 mmol/L (22-29) L 10/29/22 00:50 Anion Gap 30.0 (5-19) H 10/29/22 00:50 BUN 10 mg/dL (8-23) 10/29/22 00:50 Creatinine 0.8 mg/dL (0.7-1.2) 10/29/22 00:50 GFR Calculation 96.1 mL/min (90-130) 10/29/22 00:50 Glucose 58 mg/dL (65-115) L 10/29/22 00:50 Estimat Average Glucose 68 04 00:50 Hemoglobin A1c 4.0 % (4.0-6.0) 10/29/22 00:50 Calculated Osmolality 287 mOsm/kg (285-295) 10/29/22 00:50 Lactic Acid 3.1 mmol/L (0.5-2.2) H 10/29/22 00:50 Calcium 8.1 mg/dL (8.5-10.5) L 10/29/22 00:50 Total Bilirubin 0.8 mg/dL (0.15-1.2) 10/29/22 00:50 AST 15 U/L (0-40) 10/29/22 00:50 ALT 7 U/L (0-41) 10/29/22 00:50 Alkaline Phosphatase 87 U/L (40-130) 10/29/22 00:50 Creatine Kinase 32 U/L (39-308) L 10/29/22 00:50 Total Protein 6.1 g/dL (6.6-8.7) L 10/29/22 00:50 Albumin 3.5 g/dL (3.5-5.2) 10/29/22 00:50 Globulin 2.6 g/dL (1.3-4.6) 10/29/22 00:50 Lipase 18 U/L (13-60) 10/29/22 00:50 Urine Color Yellow (Yellow) 10/29/22 02:28 Urine Appearance Hazy (CLEAR) A 10/29/22 02:28 Urine pH 5 (5-7) 10/29/22 02:28 Ur Specific [place] 1.015 (1.005-1.030) 10/29/22 02:28 Urine Protein Neg (Negative) 10/29/22 02:28 Urine Glucose (UA) Norm (Normal) 10/29/22 02:28 Urine Ketones 2+ (Negative) H 10/29/22 02:28 Urine Blood Neg (Negative) 10/29/22 02:28 Urine Nitrate Negative (Negative) 10/29/22 02:28 Urine Bilirubin Neg (Negative) 10/29/22 02:28 Urine Urobilinogen Norm mg/dL (Negative) 10/29/22 02:28 Ur Leukocyte Esterase 2+ (Negative) H 10/29/22 02:28 Urine RBC 0-4 /hpf (0-2) H 10/29/22 02:28 Urine WBC >100 /hpf (0-5) H 10/29/22 02:28 Ur Squamous Epith Cells 0-4 /hpf (0-5) H 10/29/22 02:28 Amorphous Sediment Not Reportable 10/29/22 02:28 Urine Bacteria 4+ /hpf (NONE) H 10/29/22 02:28 Discharge Plan Discharge Patient Disposition: Admitted As Inpatient Admit Provider: Krystle Ward Clinical Impression: Generalized weakness, Failure to thrive Condition: Stable Coding Level of Care Code ED [employer] Medic for Chg Fwd Documented by User: Cody Perkins DO 10/29/22 16:26 HPI - Weakness General: Chief complaint: Weakness Stated complaint: WEAKNESS Time Seen by Provider: 10/28/22 23:42 PFSH ED PFSH: Medical History Abnormal nuclear stress test Acute kidney injury Alcohol abuse Anemia Atrial fibrillation Atrial fibrillation and flutter Benign essential hypertension with target blood pressure below 140/90 BPH (benign prostatic hyperplasia) BPH loc w urin obs/LUTS BPH loc w urin obs/LUTS Cardiomyopathy Carotid artery disease Right carotid is occluded Carotid artery stenosis without cerebral infarction Community acquired pneumonia Elevated digoxin level Elevated PSA High anion gap metabolic acidosis Hypertension Hypokalemia Hypomagnesemia Hypotension Hypotension Intermittent palpitations Intestinal malrotation Intractable nausea and vomiting Macrocytosis Mixed hyperlipidemia Premature ventricular contractions Somnolence, daytime Systolic heart failure Urinary hesitancy Surgical History History of bariatric surgery Gastric sleeve ([place]) History of left knee surgery History of right hip replacement History of tonsillectomy and adenoidectomy History of ventral hernia repair x 2, supraumbilical, second time with mesh S/P carotid endarterectomy Family History Sister Clotting disorder Father , at age 92 CAD (coronary artery disease) Grandmother Dementia Mother , at age 78 Lung disease Hip fracture Social History Smoking and tobacco status: never smoked Alcohol intake: current Alcohol intake frequency: 3 or more drinks per day Alcohol type: hard liquor Counseling given: Yes Housing: House Marital status: Current occupational status: retired Course Vital Signs: Vital signs: Vital Signs Temperature 97.7 F 10/29/22 12:00 Pulse Rate 101 H 10/29/22 12:00 Respiratory Rate 19 H 10/29/22 12:00 Blood Pressure 115/79 10/29/22 12:00 Pulse Oximetry 99 10/29/22 12:00 Oxygen Delivery Me thod 10/29/22 12:00 MDM - Weakness Medical Decision Making 67-year-old male patient comes in today due to not being able to get out of bed for the last 5 days. Patient reports just urine dribbling and no stool. Patient denies any pain. Patient had a knee replacement he reports 40 weeks ago. Incision line is well-healed. Patient has generalized weakness to bilateral lower extremities and unable to hold legs up off the bed. Pulses and sensation are intact. Patient is incontinent of urine. Patient moves upper extremities without difficulty. Vital signs are normal. Differential diagnosis includes but not limited to urinary tract infection, failure to thrive, dementia, dehydration. This patient was seen by NATHAN Chavis. I agree with his history, evaluation, and management. Lab Data 10/29/22 00:50 10/29/22 00:50 Radiology Impressions Chest X-Ray 10/29/22 00:13 IMPRESSION: No acute findings. Head CT 10/29/22 00:13 IMPRESSION: There are no acute intracranial findings. Stable head CT compared with 09/20/2020. Laboratory Results WBC 8.0 10^3/uL (4.0-10.0) 10/29/22 00:50 RBC 3.84 10^6/uL (4.1-5.3) L 10/29/22 00:50 Hgb 13.1 g/dL (11.7-16.6) 10/29/22 00:50 Hct 40.3 % (42.0-52.0) L 10/29/22 00:50 MCV 104.9 fl (80-94) H 10/29/22 00:50 MCH 34.1 pg (28.0-34.0) H 10/29/22 00:50 MCHC 32.5 g/dL (30.0-36.0) 10/29/22 00:50 RDW 14.6 % (12.1-15.1) 10/29/22 00:50 Plt Count 228 10^3/cmm (130-400) 10/29/22 00:50 MPV 10.2 fL (7.4-10.4) 10/29/22 00:50 Neut % (Auto) 84.0 % 10/29/22 00:50 Lymph % (Auto) 4.0 % 10/29/22 00:50 [place] % (Auto) 10.8 % 10/29/22 00:50 Eos % (Auto) 0.2 % 10/29/22 00:50 Baso % (Auto) 0.5 % 10/29/22 00:50 Neut # (Auto) 6.75 10^3/uL (1.8-7.7) 10/29/22 00:50 Lymph # (Auto) 0.3 10^3/uL (0.8-4.8) L 10/29/22 00:50 [place] # (Auto) 0.9 10^3/uL (0.2-0.9) 10/29/22 00:50 Eos # (Auto) 0.0 10^3/uL (0.0-0.8) 10/29/22 00:50 Baso # (Auto) 0.0 10^3/uL (0.0-0.1) 10/29/22 00:50 Nucleated RBC % (auto) 0 % 10/29/22 00:50 Nucleated RBCs # 0.0 /100WBC 10/29/22 00:50 Sodium 140 mmol/L (136-145) 10/29/22 00:50 Potassium 4.0 mmol/L (3.5-5.1) 10/29/22 00:50 Chloride 99 mmol/L (98-107) 10/29/22 00:50 Carbon Dioxide 15 mmol/L (22-29) L 10/29/22 00:50 Anion Gap 30.0 (5-19) H 10/29/22 00:50 BUN 10 mg/dL (8-23) 10/29/22 00:50 Creatinine 0.8 mg/dL (0.7-1.2) 10/29/22 00:50 GFR Calculation 96.1 mL/min (90-130) 10/29/22 00:50 Glucose 58 mg/dL (65-115) L 10/29/22 00:50 Estimat Average Glucose 68 10/29/22 00:50 Hemoglobin A1c 4.0 % (4.0-6.0) 10/29/22 00:50 Calculated Osmolality 287 mOsm/kg (285-295) 10/29/22 00:50 Lactic Acid 3.1 mmol/L (0.5-2.2) H 10/29/22 00:50 Calcium 8.1 mg/dL (8.5-10.5) L 10/29/22 00:50 Total Bilirubin 0.8 mg/dL (0.15-1.2) 10/29/22 00:50 AST 15 U/L (0-40) 10/29/22 00:50 ALT 7 U/L (0-41) 10/29/22 00:50 Alkaline Phosphatase 87 U/L (40-130) 10/29/22 00:50 Creatine Kinase 32 U/L (39-308) L 10/29/22 00:50 Total Protein 6.1 g/dL (6.6-8.7) L 10/29/22 00:50 Albumin 3.5 g/dL (3.5-5.2) 10/29/22 00:50 Globulin 2.6 g/dL (1.3-4.6) 10/29/22 00:50 Lipase 18 U/L (13-60) 10/29/22 00:50 Urine Color Yellow (Yellow) 10/29/22 02:28 Urine Appearance Hazy (CLEAR) A 10/29/22 02:28 Urine pH 5 (5-7) 10/29/22 02:28 Ur Specific [place] 1.015 (1.005-1.030) 10/29/22 02:28 Urine Protein Neg (Negative) 10/29/22 02:28 Urine Glucose (UA) Norm (Normal) 10/29/22 02:28 Urine Ketones 2+ (Negative) H 10/29/22 02:28 Urine Blood Neg (Negative) 10/29/22 02:28 Urine Nitrate Negative (Negative) 10/29/22 02:28 Urine Bilirubin Neg (Negative) 10/29/22 02:28 Urine Urobilinogen Norm mg/dL (Negative) 10/29/22 02:28 Ur Leukocyte Esterase 2+ (Negative) H 10/29/22 02:28 Urine RBC 0-4 /hpf (0-2) H 10/29/22 02:28 Urine WBC >100 /hpf (0-5) H 10/29/22 02:28 Ur Squamous Epith Cells 0-4 /hpf (0-5) H 10/29/22 02:28 Amorphous Sediment Not Reportable 10/29/22 02:28 Urine Bacteria 4+ /hpf (NONE) H 10/29/22 02:28 Discharge Plan Discharge Patient Disposition: Admitted As Inpatient Admit Provider: Krystle Ward Clinical Impression: Generalized weakness, Failure to thrive Condition: Stable Coding Level of Care Code ED [employer] Medic for [place] [facility]
[2022-10-29] VITALS (60 sets, daily range): BP systolic 110–131; BP diastolic 76–92; PULSE 88–141; RESP 15–112; TEMP 36.5–37; O2SAT 89–100
--- NOTE | 2022-10-29 00:13 | CTR_ITS ---
PROCEDURE INFORMATION: Exam: CT Head Without Contrast Exam date and time: 10/29/2022 1:26 AM Age: 67 years old Clinical indication: Weakness, extremity; Bilateral TECHNIQUE: Imaging protocol: Computed tomography of the head without contrast. Radiation optimization: All CT scans at this facility use at least one of these dose optimization techniques: automated exposure control; mA and/or kV adjustment per patient size (includes targeted exams where dose is matched to clinical indication); or iterative reconstruction. REPORTING DATA: Count of CT and Cardiac NM exams in prior 12 months: This patient has received 3 known CTs and 0 known cardiac nuclear medicine studies in the 12 months prior to the current study. COMPARISON: CT head wo con* [id number] 09/20/2020 10:02 PM RADIATION DOSE METRICS: Total DLP (mGy-cm): 1092.9 FINDINGS: Brain: There is mild diffuse cerebral atrophy. Subtle areas of hypoattenuation are seen in the deep white matter of the cerebral hemispheres bilaterally compatible with mild deep white matter microvascular disease. Cerebral ventricles: No ventriculomegaly. Paranasal sinuses: Visualized sinuses are unremarkable. No fluid levels. Mastoid air cells: Visualized mastoid air cells are well aerated. Bones/joints: Unremarkable. No acute fracture. Soft tissues: Unremarkable. CT/CT head wo con* [id number] IMPRESSION: There are no acute intracranial findings. Stable head CT compared with 09/20/2020.
--- NOTE | 2022-10-29 00:13 | XRR_ITS ---
PROCEDURE INFORMATION: Exam: XR Chest Exam date and time: 10/29/2022 12:20 AM Age: 67 years old Clinical indication: Other: Weakness TECHNIQUE: Imaging protocol: Radiologic exam of the chest. Views: 1 view. COMPARISON: CR XR chest 1V portable [id number] 08/10/2022 1:52 PM FINDINGS: Lungs: Unremarkable. No consolidation. Pleural spaces: Unremarkable. No pleural effusion. No pneumothorax. Heart/Mediastinum: Unremarkable. No cardiomegaly. Bones/joints: Unremarkable. XR/XR chest 1V portable [id number] IMPRESSION: No acute findings.
[2022-10-29 00:56] LABS: Basophils % 0.5 %; Eosinophils % 0.2 %; Hematocrit 40.3 % (42.0-52.0); Hemoglobin 13.1 g/dL (11.7-16.6); Lymphocytes # 0.3 10^3/uL (0.8-4.8); Mean Corpuscular HGB Conc 32.5 g/dL (30.0-36.0); Mean Corpuscular Hemoglobin 34.1 pg (28.0-34.0); Mean Corpuscular Volume 104.9 fl (80-94); Mean Platelet Volume 10.2 fL (7.4-10.4); Monocytes # 0.9 10^3/uL (0.2-0.9); Monocytes % 10.8 %; Neutrophils # 6.75 10^3/uL (1.8-7.7); Nucleated Red Blood Cells % 0 %; Platelet Count 228 10^3/cmm (130-400); Red Blood Count 3.84 10^6/uL (4.1-5.3); Red Cell Distribution Width 14.6 % (12.1-15.1)
[2022-10-29 01:20] LABS: Alanine Aminotransferase 7 U/L (0-41); Albumin Level 3.5 g/dL (3.5-5.2); Alkaline Phosphatase 87 U/L (40-130); Aspartate Amino Transferase 15 U/L (0-40); Blood Urea Nitrogen 10 mg/dL (8-23); Calcium 8.1 mg/dL (8.5-10.5); Carbon Dioxide 15 mmol/L (22-29); Chloride 99 mmol/L (98-107); Globulin 2.6 g/dL (1.3-4.6); Glomerular Filtration Rate 96.1 mL/min (90-130); Glucose 58 mg/dL (65-115); Lipase 18 U/L (13-60); Osmolality Calculated 287 mOsm/kg (285-295); Sodium 140 mmol/L (136-145); Total Bilirubin 0.8 mg/dL (0.15-1.2); Total Protein 6.1 g/dL (6.6-8.7)
[2022-10-29 03:06] LABS: Urine Appearance Hazy (CLEAR); Urine Color Yellow (Yellow)
[2022-10-29 03:07] LABS: Add Urine Microscopic? YES; Bilirubin Urine Neg (Negative); Blood Urine Neg (Negative); Glucose Urine UA Norm (Normal); Ketones Urine 2+ (Negative); Leukocyte Esterase Urine 2+ (Negative); Nitrate Urine Negative (Negative); Protein Urine Neg (Negative); Specific Gravity, Urine 1.015 (1.005-1.030); Urobilinogen Urine Norm (Negative); pH Urine 5 (5-7)
[2022-10-29 03:08] LABS: RBC Urine 0-4 /hpf (0-2); Squamous Epithelial Cell Urine 0-4 /hpf (0-5); WBC Urine >100 /hpf (0-5)
[2022-10-29 03:09] LABS: Add Urine Culture? Yes; Bacteria Urine 4+ /hpf
[2022-10-29 03:34] LABS: Creatine Phosphokinase 32 U/L (39-308); Lactic Sepsis W/Reflex 3.1 mmol/L (0.5-2.2)
[2022-10-29] MEDS: ampicillin-sulbactam 3 GM in sodium chloride 0.9% (plus) 50 ML IV (03:55)
--- NOTE | 2022-10-29 04:14 | PC.NURSE ---
UPON ARRIVAL PT FOUND TO BE SATURATED IN URINE. PT LINENS CHANGED AND PLACED IN CLEAN DRY GOWN. DECUBITUS ULCERS NOTED TO SACRAL AREA. PHYSICIAN NOTIFIED.
[2022-10-29] MEDS: sodium chloride 0.9% 1,000 ML 999 ML IV (04:17)
--- NOTE | 2022-10-29 04:42 | PM.HP ---
Providers/Chief Complaint Admitting Physician: Krystle Ward MD Primary Care Provider: Mallika Ceja MD Chief Complaint: WEAKNESS History of Present Illness Ethan Hardy is a 67 year old male with past medical history of alcohol abuse, Warnicke Korsakoff syndrome, CAD, hyperlipidemia, atrial fibrillation recent knee replacement surgery 4 weeks ago presented to the hospital today for generalized weakness and inability to get out of bed for the last 5 days. He states that he has been so weak that he cannot get out of bed. He has been soiling himself in bed. He lives with his sister and [id number] in the try to help but he states he just cannot get around. He said he had home health and some physical therapy at home but according to him they were not doing the job correctly so he fired them. He states he will be seeing Dr. Glaser soon and would like to get set up with outpatient physical therapy at the [facility]. However at this point he is unsure if he can even get to that point. He does not drink alcohol anymore. He complains dribbling of urine and is incontinent. He had a gastric bypass 10 years ago. Denies chest pain, shortness breath, abdominal pain, nausea, vomiting, diarrhea at this time. He does have a rash on his buttocks which he states is a burning sensation. 120/85, 18, 88, 98.5, saturating 97% on room air. Bladder scan was done which showed 615 bladder. Haq catheter was placed. Patient was started on the side of the bed with assistance but he could not stand for long time and had to sit back down. He could not take any steps due to weakness. Patient kept saying I cannot do this Medications/Allergies Home Medications Medication Instructions Recorded Confirmed Last Taken Type metoprolol tartrate 50 mg tablet 50 mg PO BID@0900,2100 30 days #60 08/17/22 10/05/22 10/02/22 05:30 Rx tabs tamsulosin 0.4 mg capsule 0.4 mg PO BID 30 days #60 caps 08/17/22 10/05/22 10/02/22 05:30 Rx Allergies Allergy/AdvReac Type Severity Reaction Status Date / Time No Known Allergies Allergy Verified 10/02/22 07:43 PFSH Acute PFSH: Medical History Abnormal nuclear stress test Acute kidney injury Alcohol abuse Anemia Atrial fibrillation Atrial fibrillation and flutter Benign essential hypertension with target blood pressure below 140/90 BPH (benign prostatic hyperplasia) BPH loc w urin obs/LUTS BPH loc w urin obs/LUTS Cardiomyopathy Carotid artery disease Right carotid is occluded Carotid artery stenosis without cerebral infarction Community acquired pneumonia Elevated digoxin level Elevated PSA High anion gap metabolic acidosis Hypertension Hypokalemia Hypomagnesemia Hypotension Hypotension Intermittent palpitations Intestinal malrotation Intractable nausea and vomiting Macrocytosis Mixed hyperlipidemia Premature ventricular contractions Somnolence, daytime Systolic heart failure Urinary hesitancy Surgical History History of bariatric surgery Gastric sleeve ([place]) History of left knee surgery History of right hip replacement History of tonsillectomy and adenoidectomy History of ventral hernia repair x 2, supraumbilical, second time with mesh S/P carotid endarterectomy Family History Sister Clotting disorder Father , at age 92 CAD (coronary artery disease) Grandmother Dementia Mother , at age 78 Lung disease Hip fracture Social History Smoking and tobacco status: never smoked Alcohol intake: current Alcohol intake frequency: 3 or more drinks per day Alcohol type: hard liquor Counseling given: Yes Housing: House Marital status: Current occupational status: retired Vitals/I&O/Wt Last Vital Signs Temp 98.5 F 10/28/22 23:39 Pulse 91 10/29/22 01:00 Resp 112 H 10/29/22 02:30 BP 120/85 10/28/22 23:39 Pulse Ox 98 10/29/22 02:30 O2 Del Method 10/29/22 02:30 Weight last 48 hrs Weight 95.254 kg Physical Exam Narrative: General: Alert oriented x3, patient seen laying in bed HEENT: Normocephalic, atraumatic, EOMI, no acute distress Cardio: Regular rate rhythm, normal S1-S2 Respiratory: Good bilateral air entry, no wheezes no rhonchi appreciated GI: Abdomen soft, nontender, nondistended, bowel sounds + Extremities: No edema. Right knee incision well-healed, no erythema. Sacral area has a erythematous rash and skin breakdown. No open wound noted. Skin beefy red. Data 10/29/22 00:50 10/29/22 00:50 A&P Assessment and plan (1) Status post right knee replacement: (2) Osteoarthritis of right knee: (3) Failure to thrive: (4) Generalized weakness: (5) High anion gap metabolic acidosis: (6) Atrial fibrillation: (7) Knee joint replacement status: (8) UTI (urinary tract infection): Plan #Failure to thrive #UTI #Generalized weakness #Urinary retention with incontinence #History of gastric bypass, alcohol abuse, Warnicke Korsakoff syndrome #Atrial fibrillation, currently rate controlled #Knee surgery 4 weeks ago #High anion gap metabolic acidosis #Lactic acid elevated #Sacral area pressure injury, cellulitis ? Vitals are stable. ? Lactic acid 3.4, CPK pending ? Anion gap 30. Was likely secondary to lactic acidosis ? 1 L normal saline bolus given in ER. Normal saline 125 cc/h to be ordered ? Check CBC BMP magnesium in a.m. ? Check phosphorus ? Continue Haq catheter. Recommend to follow-up with urology as an outpatient. Haq catheter to remain at discharge ? Physical therapy Occupational Therapy evaluation required ? Patient would benefit possibly from inpatient rehab. ? Chest x-ray reviewed. No pneumonia noted. Head CT negative for acute findings. ? UA abnormal. 2+ leukocyte esterase, greater than 100 WBC, 4+ bacteria ? Placed on Unasyn every 6 hours ? Check blood cultures, urine culture ? Continue metoprolol tartrate 50 twice daily ? Continue folic acid, thiamine ? Wound care to be ordered for sacral area ? Check lactic acid in 4 hours. Continue on IV fluids for now Full code SCDs, heparin SQ twice daily for DVT prophylaxis Attestations Medical Necessity Statement*: Will cross greater than 2 midnight stay for management of UTI, failure to thrive, generalized weakness Other Coding Information Focused coding review requested Diagnoses Status post right knee replacement Z96.651 Osteoarthritis of right knee M17.11 Failure to thrive Generalized weakness R53.1 High anion gap metabolic acidosis E87.29 Atrial fibrillation I48.91 Knee joint replacement status Z96.659 UTI (urinary tract infection) N39.0
[2022-10-29 05:05] LABS: Reflex Lactate Order REFLEX LACTIC ORDERD
[2022-10-29] MEDS: sodium chloride 0.9% 1,000 ML 125 ML IV (05:30)
[2022-10-29] MEDS: heparin 5,000 unit/mL INJ 1 mL 5000 UNIT SUBCUT ×2 (05:31→15:20)
[2022-10-29 05:45] LABS: Estmated Average Glucose 68
[2022-10-29 06:15] LABS: Glucose Point of Care 62 mg/dL (70-110)
--- NOTE | 2022-10-29 06:20 | PC.NURSE ---
Informed Dr Ward of patient's blood sugar of 62. Patient is asymptomatic at this time. Received telephone order to give 1 AMP D50 IVP. RBVO
[2022-10-29 06:25] LABS: Lactic Acid level (Lactate) 1.4 mmol/L (0.5-2.2)
[2022-10-29 06:28] LABS: Blood Urea Nitrogen 10 mg/dL (8-23); Calcium 8.2 mg/dL (8.5-10.5); Carbon Dioxide 15 mmol/L (22-29); Creatinine Clr Calc Pharmacy 92.5351; Glomerular Filtration Rate 83.9 mL/min (90-130); Glucose 65 mg/dL (65-115)
[2022-10-29 06:37] LABS: Thyroid Stimulating Hormone 2.23 uIU/mL (0.27-4.20)
[2022-10-29 07:02] LABS: Creatine Phosphokinase 30 U/L (39-308); Phosphorus 2.9 mg/dL (2.5-4.5); Procalcitonin 0.37 ng/mL (0-0.5)
[2022-10-29 07:05] LABS: Osmolality Calculated 283 mOsm/kg (285-295); Potassium 3.9 mmol/L (3.5-5.1); Sodium 138 mmol/L (136-145)
[2022-10-29 07:06] LABS: Anion Gap 29.9 (5-19); Chloride 97 mmol/L (98-107)
[2022-10-29 07:06] LABS: ABG PCO2 23.8 mmHg (35-45); ABG PH Result 7.42 (7.35-7.45); Alveolar-Arterial Oxygen Gradi 3.6 mmHg (5-10); Arterial Blood Gas Hematocrit 37.4 % (42-52); Base Excess ABG -7.3 mmol/L (-2.0-2.0); Blood Gas Allen Test Pos; Blood Gas Sample Type Arterial; Carboxyhemoglobin 1.5 %THgb (0.4-20.1); HCO3 ABG 15.5 mmol/L (22-26); Ionized Calcium Level - ABG 1.1 mmol/L (1.1-1.4); Oxygen Saturation ABG 98.4; Potassium Level - ABG 3.6 mmol/L (3.5-5.0); Total Hemoglobin 12.2 g/dL (14-18)
[2022-10-29 07:07] LABS: Blood Gas Sample Site Radial, left
--- NOTE | 2022-10-29 08:30 | USR_ITS ---
PROCEDURE INFORMATION: Exam: US Retroperitoneal; Complete; Kidneys and Bladder Exam date and time: 10/29/2022 3:58 PM Age: 67 years old Clinical indication: Other: [place] TECHNIQUE: Imaging protocol: Real-time ultrasound of the retroperitoneum with image documentation. Complete exam focused on the kidneys and bladder. COMPARISON: CT abdomen pelvis con [id number] 08/07/2022 2:29 PM FINDINGS: Right kidney: Right kidney measures 10.2 x 5.6 x 6.2 cm. Right kidney appears unremarkable in echotexture and contour. No significant renal cortical thinning. No findings of hydronephrosis or obstruction. No discrete or defined cyst or mass. Left kidney: Left kidney measures 13 x 7 x 5.6 cm. Left kidney appears unremarkable in echotexture and contour. No findings of hydronephrosis or obstruction. No discrete or defined cyst or mass. Urinary bladder: Urinary bladder appears collapsed. US/US renal BI* [id number] IMPRESSION: Negative renal ultrasound. No acute findings.
[2022-10-29] MEDS: thiamine 100 mg Tablet PO (08:51)
[2022-10-29] MEDS: folic acid 1 mg Tablet PO (08:51)
[2022-10-29] MEDS: pantoprazole DR 40 mg Tablet PO (08:51)
[2022-10-29] MEDS: metoprolol tartrate 50 mg Tablet PO ×2 (08:52→20:02)
[2022-10-29] MEDS: tamsulosin 0.4 mg Capsule PO ×2 (08:52→17:39)
[2022-10-29] MEDS: piperacillin-tazobactam 3.375 GM in sodium chloride 0.9% (plus) 50 ML IV ×2 (09:02→17:39)
[2022-10-29] MEDS: dextrose 5%-sod chloride 0.9% 1,000 ML 125 ML IV ×2 (09:03→20:29)
[2022-10-29] MEDS: folic acid 1 MG, multivitamin inj 10 ML, thiamine 100 MG in sodium chloride 0.9% 1,000 ML 252.8 MG IV (10:07)
[2022-10-29 10:17] LABS: Iron 44 ug/dL (59-158)
[2022-10-29 10:45] LABS: Ferritin 1215 ng/mL (30-400)
[2022-10-29 11:30] LABS: Glucose Point of Care 142 mg/dL (70-110)
--- NOTE | 2022-10-29 13:12 | P.PN_ITS ---
Subjective Subjective: Patient was seen this morning, he is alert to person, to place, can follow commands, denies any fevers, denies any chills, does report issues with his prostate Vitals/I&O/Wt Last Vital Signs Temp 97.7 F 10/29/22 12:00 Pulse 101 H 10/29/22 12:00 Resp 19 H 10/29/22 12:00 BP 115/79 10/29/22 12:00 Pulse Ox 99 10/29/22 12:00 O2 Del Method 10/29/22 12:00 10/28/22 10/29/22 10/29/22 22:59 06:59 14:59 Intake Total 1100 / 1100 1094.583 / 1094.583 Output Total 450 / 450 Balance 650 / 650 1094.583 / 1094.583 Weight last 48 hrs Weight 95.254 kg Physical Exam Const: COMMON NORMALS: no acute distress and patient oriented x3 Resp: COMMON NORMALS: normal respiratory effort, No retractions, No use of accessory muscles and clear to auscultation bilaterally AUSCULTATION: clear to auscultation bilaterally Cardio: COMMON NORMALS: regular rate, regular rhythm, S1 normal heart sound present and S2 normal heart sound present RATE: regular rate RHYTHM: regular rhythm HEART SOUNDS: S1 normal heart sound present and S2 normal heart sound present GI: COMMON NORMALS: Normal to inspection, nondistended, normoactive bowel sounds present and non-tender Extremity: COMMON NORMALS: no pedal edema Neuro: COMMON NORMALS: patient oriented x3 Psych: COMMON NORMALS: mental status grossly normal Urinary Catheter Management: Haq: Cath Placed During This Visit: no Reason for Continuing Indwelling Catheter: Accurate Measurement of Urinary Output in Critically Ill Patients Data 10/29/22 00:50 10/29/22 05:50 Micro: Microbiology 10/29/22 05:55 Blood Culture - Preliminary Blood SPECIMEN COLLECTED 10/29/22 05:50 Blood Culture - Preliminary Blood SPECIMEN COLLECTED A&P Assessment and plan (1) Status post right knee replacement: (2) Osteoarthritis of right knee: (3) Failure to thrive: (4) Generalized weakness: (5) High anion gap metabolic acidosis: (6) Atrial fibrillation: (7) Knee joint replacement status: (8) UTI (urinary tract infection): Plan #Failure to thrive #UTI #Generalized weakness #Urinary retention with incontinence #History of gastric bypass, alcohol abuse, Warnicke Korsakoff syndrome #Atrial fibrillation, currently rate controlled, not on anticoagulation #Knee surgery 4 weeks ago #High anion gap metabolic acidosis #Lactic acid elevated #Sacral area pressure injury, cellulitis ? Vitals are stable. ? Lactic acid 3.4, CPK 30 ? Anion gap 30. Was likely secondary to lactic acidosis ? 1 L normal saline bolus given in ER. Normal saline 125 cc/h to be ordered ? Continue Haq catheter. Recommend to follow-up with urology as an outpatient. Haq catheter to remain at discharge ? Physical therapy Occupational Therapy evaluation required ? Patient would benefit possibly from inpatient rehab. ? Chest x-ray reviewed. No pneumonia noted. Head CT negative for acute findings. ? UA abnormal. 2+ leukocyte esterase, greater than 100 WBC, 4+ bacteria, likely UTI ? Broaden antibiotic coverage to Zosyn -Renal ultrasound ? Check blood cultures, urine culture ? Continue metoprolol tartrate 50 twice daily ? Continue folic acid, thiamine ? Wound care to be ordered for sacral area ? Continue IV fluids, recheck lactic acid in the afternoon -BPH, continue Flomax Full code SCDs, heparin SQ twice daily for DVT prophylaxis Attestations Medical Necessity Statement*: Patient requires position for failure to thrive, UTI, weakness Diagnoses Status post right knee replacement Z96.651 Osteoarthritis of right knee M17.11 Failure to thrive Generalized weakness R53.1 High anion gap metabolic acidosis E87.29 Atrial fibrillation I48.91 Knee joint replacement status Z96.659 UTI (urinary tract infection) N39.0
[2022-10-29 15:51] LABS: Lactate (Lactic Acid level) 1.2 mmol/L (0.5-2.2)
[2022-10-29 17:17] LABS: Glucose Point of Care 125 mg/dL (70-110)
[2022-10-29 21:37] LABS: Glucose Point of Care 154 mg/dL (70-110)
[2022-10-30] VITALS (7 sets, daily range): BP systolic 97–127; BP diastolic 68–82; PULSE 52–115; RESP 16–21; TEMP 36.4–36.8; O2SAT 96–99
[2022-10-30] MEDS: piperacillin-tazobactam 3.375 GM in sodium chloride 0.9% (plus) 50 ML IV ×3 (00:48→18:19)
[2022-10-30] MEDS: heparin 5,000 unit/mL INJ 1 mL 5000 UNIT SUBCUT ×2 (03:08→16:22)
[2022-10-30] MEDS: dextrose 5%-sod chloride 0.9% 1,000 ML 125 ML IV ×2 (03:13→09:37)
--- NOTE | 2022-10-30 05:52 | ECG_ITS ---
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 Measurements Intervals [place] Rate: 126 P: 0 SC: 0 QRS: 25 QRSD: 105 T: 0 QT: 213 QTc: 308 Interpretive Statements ATRIAL FIBRILLATION WITH RAPID VENTRICULAR RESPONSE WITH ABERRANT CONDUCTION OR VENTRICULAR PREMATURE COMPLEXES NONSPECIFIC ST & T-WAVE ABNORMALITY Compared to ECG 10/29/2022 07:14:29 No significant changes Electronically Signed On 10-30-2022 13:06:56 CDT by Edmond Chopra M.D. [id number]
--- NOTE | 2022-10-30 06:07 | PC.NURSE ---
Patient tachycardic, Dr. Ward notified, EKG done per , new orders recieved for metoprolol 5 mg iv now x 1 and administer 0900 dose of metoprolol now.
[2022-10-30] MEDS: metoprolol tartrate 50 mg Tablet PO ×2 (06:12→20:13)
[2022-10-30] MEDS: acetaminophen 325 mg Tablet 650 MG PO ×2 (06:13→13:02)
[2022-10-30] MEDS: metoprolol tartrate 1 mg/1 mL SDV 5 mL 5 MG IVP (06:13)
[2022-10-30 06:26] LABS: Basophils % 0.2 %; Eosinophils # 0.1 10^3/uL (0.0-0.8); Eosinophils % 1.7 %; Hematocrit 36.1 % (42.0-52.0); Hemoglobin 12.2 g/dL (11.7-16.6); Lymphocytes # 0.3 10^3/uL (0.8-4.8); Lymphocytes % 6.8 %; Mean Corpuscular HGB Conc 33.8 g/dL (30.0-36.0); Mean Corpuscular Hemoglobin 34.3 pg (28.0-34.0); Mean Corpuscular Volume 101.4 fl (80-94); Mean Platelet Volume 11.5 fL (7.4-10.4); Monocytes # 0.4 10^3/uL (0.2-0.9); Monocytes % 10.4 %; Neutrophils # 3.32 10^3/uL (1.8-7.7); Neutrophils % 80.4 %; Nucleated Red Blood Cells % 0 %; Platelet Count 96 10^3/cmm (130-400); Red Blood Count 3.56 10^6/uL (4.1-5.3); Red Cell Distribution Width 14.2 % (12.1-15.1); White Blood Count 4.1 10^3/uL (4.0-10.0)
[2022-10-30 06:43] LABS: Alanine Aminotransferase 6 U/L (0-41); Albumin Level 2.8 g/dL (3.5-5.2); Alkaline Phosphatase 66 U/L (40-130); Anion Gap 14.9 (5-19); Aspartate Amino Transferase 10 U/L (0-40); Blood Urea Nitrogen 6 mg/dL (8-23); Carbon Dioxide 22 mmol/L (22-29); Chloride 102 mmol/L (98-107); Globulin 2.4 g/dL (1.3-4.6); Glomerular Filtration Rate 112.1 mL/min (90-130); Glucose 137 mg/dL (65-115); Magnesium 1.2 mg/dL (1.7-2.3); Osmolality Calculated 282 mOsm/kg (285-295); Sodium 136 mmol/L (136-145); Total Bilirubin 0.9 mg/dL (0.15-1.2); Total Protein 5.2 g/dL (6.6-8.7)
[2022-10-30 06:57] LABS: Slide Review Slide Review Perform
[2022-10-30 07:01] LABS: Potassium 2.9 mmol/L (3.5-5.1)
[2022-10-30] MEDS: folic acid 1 mg Tablet PO (08:22)
[2022-10-30] MEDS: thiamine 100 mg Tablet PO (08:22)
[2022-10-30] MEDS: tamsulosin 0.4 mg Capsule PO ×2 (08:22→17:43)
[2022-10-30] MEDS: potassium chloride ER 20 mEq Tablet 40 MEQ PO (08:22)
[2022-10-30] MEDS: pantoprazole DR 40 mg Tablet PO (08:22)
[2022-10-30] MEDS: magnesium sulfate premix 4 GM/100 ML PREMIX IV (09:37)
[2022-10-30] MEDS: potassium chloride ER 20 mEq Tablet PO (09:38)
--- NOTE | 2022-10-30 10:10 | PC.CHAP ---
Pastoral Care Encounter/Spiritual Assessment Type of Contact [] Declined buffing machine operator visit [] Patient/Family/Request visit [] Outpatient visit [] Follow-up visit [] Physician referral [] Code/Alert [x] Routine visit [] Staff referral [] Actively dying [] Patient sleeping [] Family support [] [] Out of room [] Palliative care [] [] Receiving care in room [] Pre-surgical visit [] Trauma [] Long length of stay [] ICU visit [] Other: Relational/Emotional Strength [x] Patient feels connected with others/family/visitors/staff [] Distress [] Loneliness/isolation [] Abandonment Spirituality of Patient [x] Person of Michelle [] Attends Taoism of their Michelle [x] Believes in Prayer [] Reads Bible or Protestant materials [] There are Spiritual issues to be addressed Supervisor Painting Shipyard Interventions [x] Prayer [] Active listening [] Non-anxious presence [x] Spiritual/emotional support [] Crisis/trauma care [] Spiritual counseling [] Bereavement support [] Provided bereavement packet [] Provided Bible/devotional materials [] Provided toy/stuffed animal, coloring book to patient or family member [] Provided Communion [] Anointing/[place] [] Salvation [x] Completed spiritual assessment [] Other: Impact on Illness or Injury [] Angry [] Fearful [] Anxious [] Often cries [] Exhaustion [] Unable to work [] Unable to attend christian [] Unable to walk/stand [] Unable to read [] Unable to drive [] Unable to eat/drink [] Unable to sleep [] Unable to be with family [] Patient intubated [] Other: Summary Time spent with patient 10 min
--- NOTE | 2022-10-30 11:18 | ECG_ITS ---
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 Measurements Intervals [place] Rate: 143 P: 0 AK: 0 QRS: 41 QRSD: 103 T: 74 QT: 314 QTc: 485 Interpretive Statements ATRIAL FIBRILLATION WITH RAPID VENTRICULAR RESPONSE LOW QRS VOLTAGE IN PRECORDIAL LEADS [QRS DEFLECTION < 1.0 mV IN CHEST LEADS] NONSPECIFIC ST & T-WAVE ABNORMALITY Compared to ECG 10/30/2022 05:52:38 Low QRS voltage now present Ventricular premature complex(es) no longer present Aberrant conduction of supraventricular beat(s) no longer present T-wave abnormality still present Electronically Signed On 10-30-2022 13:08:14 CDT by Edmond Chopra M.D. [id number]
[2022-10-30] MEDS: dilTIAZem 5 mg/mL SDV 5 mL 10 MG IVP (11:55)
[2022-10-30] MEDS: dilTIAZem 60 mg Tablet PO (12:03)
[2022-10-30 12:25] LABS: Glucose Point of Care 142 mg/dL (70-110)
--- NOTE | 2022-10-30 14:32 | PC.NURSE ---
Patient did not want to wear allergy bracelet. This nurse taped bracelet to the end of the bed after confirming with nurse project account manager if that was appropriate.
--- NOTE | 2022-10-30 14:47 | PM.PN ---
Subjective Subjective: patient was seen this morning he is doing well, wondering which [facility] he is going to, later in the morning patient developed afib rvr, hr in the 140's, was given 10mg of cardizem with po cardizem 30 q6h Vitals/I&O/Wt Last Vital Signs Temp 98.0 F 10/30/22 08:00 Pulse 52 L 10/30/22 12:00 Resp 18 10/30/22 12:00 BP 97/70 10/30/22 12:00 Pulse Ox 99 10/30/22 12:00 O2 Del Method 10/30/22 12:00 10/29/22 10/30/22 10/30/22 22:59 06:59 14:59 Intake Total 1400 / 2494.583 1081.667 / 3576.250 1480 / 1480 Output Total 250 / 250 850 / 1100 Balance 1150 / 2244.583 231.667 / 2476.250 1480 / 1480 Weight last 48 hrs Weight 95.254 kg Physical Exam Const: COMMON NORMALS: no acute distress and patient oriented x3 Resp: COMMON NORMALS: normal respiratory effort, No retractions, No use of accessory muscles and clear to auscultation bilaterally AUSCULTATION: clear to auscultation bilaterally Cardio: COMMON NORMALS: regular rate, S1 normal heart sound present and S2 normal heart sound present RATE: regular rate RHYTHM: abnormal rhythm irregularly irregular HEART SOUNDS: S1 normal heart sound present and S2 normal heart sound present GI: COMMON NORMALS: Normal to inspection, nondistended, normoactive bowel sounds present and non-tender Extremity: COMMON NORMALS: no pedal edema Neuro: COMMON NORMALS: patient oriented x3 Psych: COMMON NORMALS: mental status grossly normal Urinary Catheter Management: Haq: Cath Placed During This Visit: no Reason for Continuing Indwelling Catheter: Other Data 10/30/22 06:05 10/30/22 06:05 Micro: Microbiology 10/29/22 02:28 Urine Culture - Preliminary Urine,Clean Catch 10/29/22 05:55 Blood Culture - Preliminary Blood NEGATIVE TO DATE 10/29/22 05:50 Blood Culture - Preliminary Blood NEGATIVE TO DATE A&P Assessment and plan (1) Status post right knee replacement: (2) Osteoarthritis of right knee: (3) Failure to thrive: (4) Generalized weakness: (5) High anion gap metabolic acidosis: (6) Atrial fibrillation: (7) Knee joint replacement status: (8) UTI (urinary tract infection): Plan #Failure to thrive #UTI #Generalized weakness #Urinary retention with incontinence #History of gastric bypass, alcohol abuse, Warnicke Korsakoff syndrome #Atrial fibrillation, currently rate controlled, not on anticoagulation #Knee surgery 4 weeks ago #High anion gap metabolic acidosis #Lactic acid elevated #Sacral area pressure injury, cellulitis ? Vitals are stable. ? Lactic acid 1.0 ? Anion gap 14.9 ? 1 L normal saline bolus given in ER. Normal saline 125 cc/h , will stop ? Continue Haq catheter. Recommend to follow-up with urology as an outpatient. Haq catheter to remain at discharge ? Physical therapy Occupational Therapy evaluation required ? Patient would benefit possibly from inpatient rehab. ? Chest x-ray reviewed. No pneumonia noted. Head CT negative for acute findings. ? UA abnormal. 2+ leukocyte esterase, greater than 100 WBC, 4+ bacteria, likely UTI ? Broaden antibiotic coverage to Zosyn -Renal ultrasound ? Check blood cultures, urine culture ? Continue metoprolol tartrate 50 twice daily ? Continue folic acid, thiamine ? Wound care to be ordered for sacral area -afib rvr, will add cardizem 30mg q6hrs -BPH, continue Flomax Full code SCDs, heparin SQ twice daily for DVT prophylaxis Attestations Medical Necessity Statement*: patient requires hospitalization for uti, afib rvr Coding Level of Care Code Acute Code for Chg Fwd Diagnoses Status post right knee replacement Z96.651 Osteoarthritis of right knee M17.11 Failure to thrive Generalized weakness R53.1 High anion gap metabolic acidosis E87.29 Atrial fibrillation I48.91 Knee joint replacement status Z96.659 UTI (urinary tract infection) N39.0
[2022-10-30 16:45] LABS: Glucose Point of Care 121 mg/dL (70-110)
[2022-10-30] MEDS: dilTIAZem 30 mg Tablet PO (17:43)
--- NOTE | 2022-10-30 18:52 | PC.NURSE ---
Patient is currently resting in bed comfortably. Call light and table are within reach. This nurse addressed any questions/concerns patient had during shift. Patient has been tachy during shift with meds given to lower rate.
[2022-10-31] VITALS (8 sets, daily range): BP systolic 98–118; BP diastolic 66–79; PULSE 82–108; RESP 14–18; TEMP 36.4–36.9; O2SAT 95–99
[2022-10-31] MEDS: dilTIAZem 30 mg Tablet PO ×5 (00:42→23:24)
[2022-10-31] MEDS: piperacillin-tazobactam 3.375 GM in sodium chloride 0.9% (plus) 50 ML IV ×3 (00:42→17:52)
[2022-10-31] MEDS: acetaminophen 325 mg Tablet 650 MG PO ×4 (01:59→22:02)
[2022-10-31 05:07] LABS: Basophils % 0.2 %; Eosinophils # 0.1 10^3/uL (0.0-0.8); Eosinophils % 2.7 %; Hemoglobin 11.1 g/dL (11.7-16.6); Lymphocytes # 0.5 10^3/uL (0.8-4.8); Lymphocytes % 11.1 %; Mean Corpuscular HGB Conc 33.6 g/dL (30.0-36.0); Mean Corpuscular Hemoglobin 34.2 pg (28.0-34.0); Mean Corpuscular Volume 101.5 fl (80-94); Mean Platelet Volume 11.9 fL (7.4-10.4); Monocytes # 0.5 10^3/uL (0.2-0.9); Monocytes % 11.3 %; Neutrophils # 3.01 10^3/uL (1.8-7.7); Neutrophils % 74.2 %; Nucleated Red Blood Cells % 0 %; Platelet Count 76 10^3/cmm (130-400); Red Blood Count 3.25 10^6/uL (4.1-5.3); Red Cell Distribution Width 14.2 % (12.1-15.1); White Blood Count 4.1 10^3/uL (4.0-10.0)
[2022-10-31 05:32] LABS: Anion Gap 13.2 (5-19); Blood Urea Nitrogen 3 mg/dL (8-23); Calcium 8.2 mg/dL (8.5-10.5); Carbon Dioxide 24 mmol/L (22-29); Chloride 101 mmol/L (98-107); Glucose 99 mg/dL (65-115); Osmolality Calculated 277 mOsm/kg (285-295); Potassium 3.2 mmol/L (3.5-5.1); Sodium 135 mmol/L (136-145)
[2022-10-31 06:00] LABS: Slide Review Slide Review Perform
[2022-10-31] MEDS: heparin 5,000 unit/mL INJ 1 mL 5000 UNIT SUBCUT (06:13)
[2022-10-31 08:28] LABS: LAB Peripheral Smear Sent for Review
[2022-10-31] MEDS: thiamine 100 mg Tablet PO (09:08)
[2022-10-31] MEDS: pantoprazole DR 40 mg Tablet PO (09:08)
[2022-10-31] MEDS: metoprolol tartrate 50 mg Tablet PO ×2 (09:09→21:02)
[2022-10-31] MEDS: folic acid 1 mg Tablet PO (09:09)
[2022-10-31] MEDS: tamsulosin 0.4 mg Capsule PO ×2 (09:09→17:52)
--- NOTE | 2022-10-31 10:18 | PC.CHAP ---
Pastoral Care Encounter/Spiritual Assessment Type of Contact [] Declined va underwriter visit [] Patient/Family/Request visit [] Outpatient visit [] Follow-up visit [] Physician referral [] Code/Alert [x] Routine visit [] Staff referral [] Actively dying [] Patient sleeping [] Family support [] [] Out of room [] Palliative care [] [] Receiving care in room [] Pre-surgical visit [] Trauma [] Long length of stay [] ICU visit [] Other: Relational/Emotional Strength [] Patient feels connected with others/family/visitors/staff [] Distress [] Loneliness/isolation [] Abandonment Spirituality of Patient [] Person of Michelle [] Attends Hindu of their Michelle [] Believes in Prayer [] Reads Bible or Scientology materials [] There are Spiritual issues to be addressed Coating Engineer Interventions [x] Prayer [] Active listening [] Non-anxious presence [] Spiritual/emotional support [] Crisis/trauma care [] Spiritual counseling [] Bereavement support [] Provided bereavement packet [] Provided Bible/devotional materials [] Provided toy/stuffed animal, coloring book to patient or family member [] Provided Communion [] Anointing/[place] [] Salvation [] Completed spiritual assessment [] Other: Impact on Illness or Injury [] Angry [] Fearful [] Anxious [] Often cries [] Exhaustion [] Unable to work [] Unable to attend religion [] Unable to walk/stand [] Unable to read [] Unable to drive [] Unable to eat/drink [] Unable to sleep [] Unable to be with family [] Patient intubated [] Other: Summary Time spent with patient
[2022-10-31 11:39] LABS: Glucose Point of Care 114 mg/dL (70-110)
--- NOTE | 2022-10-31 12:40 | PM.PN ---
Subjective Subjective: patient was seen this morning, he has no complaints, no fever, no cough is motivated to work with physical therapy today Vitals/I&O/Wt Last Vital Signs Temp 98.3 F 10/31/22 08:00 Pulse 91 10/31/22 08:00 Resp 17 10/31/22 08:00 BP 117/79 10/31/22 08:00 Pulse Ox 98 10/31/22 08:00 O2 Del Method 10/31/22 04:00 10/30/22 10/31/22 10/31/22 22:59 06:59 14:59 Intake Total 50 / 2200.833 50 / 2250.833 Output Total 600 / 600 1200 / 1800 900 / 900 Balance -550 / 1600.833 -1150 / 450.833 -900 / -900 Physical Exam Const: COMMON NORMALS: no acute distress and patient oriented x3 Resp: COMMON NORMALS: normal respiratory effort, No retractions, No use of accessory muscles and clear to auscultation bilaterally AUSCULTATION: clear to auscultation bilaterally Cardio: COMMON NORMALS: regular rate, regular rhythm, S1 normal heart sound present and S2 normal heart sound present RATE: regular rate RHYTHM: regular rhythm HEART SOUNDS: S1 normal heart sound present and S2 normal heart sound present GI: COMMON NORMALS: Normal to inspection, nondistended, normoactive bowel sounds present and non-tender Extremity: COMMON NORMALS: no pedal edema Neuro: COMMON NORMALS: patient oriented x3 Psych: COMMON NORMALS: mental status grossly normal Urinary Catheter Management: Haq: Cath Placed During This Visit: no Reason for Continuing Indwelling Catheter: Other Data 10/31/22 04:31 10/31/22 04:31 Micro: Microbiology 10/31/22 09:53 Occult Blood (FIT) - Final Stool Routine Collection 10/29/22 02:28 Urine Culture - Preliminary Urine,Clean Catch Gram Negative Rods Gram Negative Rods#2 A&P Assessment and plan (1) Status post right knee replacement: (2) Osteoarthritis of right knee: (3) Failure to thrive: (4) Generalized weakness: (5) High anion gap metabolic acidosis: (6) Atrial fibrillation: (7) Knee joint replacement status: (8) UTI (urinary tract infection): (9) Anemia: (10) Thrombocytopenia: (11) Atrial fibrillation with RVR: Plan #Failure to thrive #UTI #Generalized weakness #Urinary retention with incontinence #History of gastric bypass, alcohol abuse, Warnicke Korsakoff syndrome #Atrial fibrillation, currently rate controlled, not on anticoagulation #Knee surgery 4 weeks ago #High anion gap metabolic acidosis #Lactic acid elevated #Sacral area pressure injury, cellulitis #anemia #thrombocytopenia ? Vitals are stable. ? Lactic acid 1.0 ? Anion gap 14.9 ? completed fluids ? Continue Haq catheter. Recommend to follow-up with urology as an outpatient. Haq catheter to remain at discharge ? Physical therapy Occupational Therapy evaluation required ? Patient would benefit possibly from inpatient rehab. ? Chest x-ray reviewed. No pneumonia noted. Head CT negative for acute findings. ? UA abnormal. 2+ leukocyte esterase, greater than 100 WBC, 4+ bacteria, likely UTI ? Broaden antibiotic coverage to Zosyn ? Check blood cultures, urine culture ? Continue metoprolol tartrate 50 twice daily ? Continue folic acid, thiamine ? Wound care to be ordered for sacral area -afib rvr, resolved, coutinue cardizem 30mg q6hrs -thrombocytopenia, will order hit panel, peripheral smear, hold heparin -BPH, continue Flomax Full code SCDs, DVT prophylaxis Attestations Medical Necessity Statement*: patient requires hospitalization for cellultis, uti, thrombocytopenia, anemia Coding Level of Care Code Acute Code for Chg Fwd Diagnoses Status post right knee replacement Z96.651 Osteoarthritis of right knee M17.11 Failure to thrive Generalized weakness R53.1 High anion gap metabolic acidosis E87.29 Atrial fibrillation I48.91 Knee joint replacement status Z96.659 UTI (urinary tract infection) N39.0 Anemia D64.9 Thrombocytopenia D69.6 Atrial fibrillation with RVR I48.91
[2022-11-01] VITALS (9 sets, daily range): BP systolic 97–125; BP diastolic 69–87; PULSE 70–90; RESP 15–18; TEMP 36.4–37.2; O2SAT 98–100
[2022-11-01] MEDS: piperacillin-tazobactam 3.375 GM in sodium chloride 0.9% (plus) 50 ML IV ×3 (01:09→18:01)
[2022-11-01] MEDS: acetaminophen 325 mg Tablet 650 MG PO ×3 (04:25→18:00)
[2022-11-01 05:19] LABS: Basophils % 0.3 %; Eosinophils # 0.2 10^3/uL (0.0-0.8); Eosinophils % 4.3 %; Hematocrit 34.5 % (42.0-52.0); Hemoglobin 11.6 g/dL (11.7-16.6); Lymphocytes # 0.5 10^3/uL (0.8-4.8); Lymphocytes % 13.6 %; Mean Corpuscular HGB Conc 33.6 g/dL (30.0-36.0); Mean Corpuscular Hemoglobin 34.4 pg (28.0-34.0); Mean Corpuscular Volume 102.4 fl (80-94); Mean Platelet Volume 11.2 fL (7.4-10.4); Monocytes # 0.5 10^3/uL (0.2-0.9); Monocytes % 12.3 %; Neutrophils # 2.76 10^3/uL (1.8-7.7); Neutrophils % 69.2 %; Nucleated Red Blood Cells % 0 %; Platelet Count 99 10^3/cmm (130-400); Red Blood Count 3.37 10^6/uL (4.1-5.3); Red Cell Distribution Width 13.9 % (12.1-15.1)
[2022-11-01 05:48] LABS: Anion Gap 12.4 (5-19); Blood Urea Nitrogen 4 mg/dL (8-23); Calcium 8.5 mg/dL (8.5-10.5); Carbon Dioxide 25 mmol/L (22-29); Chloride 106 mmol/L (98-107); Glomerular Filtration Rate 112.1 mL/min (90-130); Glucose 83 mg/dL (65-115); Osmolality Calculated 286 mOsm/kg (285-295); Potassium 3.4 mmol/L (3.5-5.1); Sodium 140 mmol/L (136-145)
[2022-11-01] MEDS: dilTIAZem 30 mg Tablet PO ×3 (05:59→18:01)
[2022-11-01] MEDS: potassium chloride ER 20 mEq Tablet 40 MEQ PO (08:55)
[2022-11-01] MEDS: tamsulosin 0.4 mg Capsule PO ×2 (08:56→18:01)
[2022-11-01] MEDS: metoprolol tartrate 50 mg Tablet PO ×2 (08:56→21:36)
[2022-11-01] MEDS: thiamine 100 mg Tablet PO (08:56)
[2022-11-01] MEDS: folic acid 1 mg Tablet PO (08:56)
[2022-11-01] MEDS: pantoprazole DR 40 mg Tablet PO (08:56)
--- NOTE | 2022-11-01 14:12 | PM.PN ---
Subjective Subjective: Patient was seen this morning, denies any pain complaints, Vitals/I&O/Wt Last Vital Signs Temp 97.6 F 11/01/22 12:00 Pulse 81 11/01/22 12:00 Resp 18 11/01/22 12:00 BP 109/74 11/01/22 12:00 Pulse Ox 99 11/01/22 12:00 O2 Del Method 11/01/22 12:00 10/31/22 11/01/22 11/01/22 22:59 06:59 14:59 Intake Total 205 / 375 95 / 470 290 / 290 Output Total 500 / 1400 600 / 2000 500 / 500 Balance -295 / -1025 -505 / -1530 -210 / -210 Physical Exam Const: COMMON NORMALS: no acute distress and patient oriented x3 Resp: COMMON NORMALS: normal respiratory effort, No retractions, No use of accessory muscles and clear to auscultation bilaterally AUSCULTATION: clear to auscultation bilaterally Cardio: COMMON NORMALS: regular rate, regular rhythm, S1 normal heart sound present and S2 normal heart sound present RATE: regular rate RHYTHM: regular rhythm HEART SOUNDS: S1 normal heart sound present and S2 normal heart sound present GI: COMMON NORMALS: Normal to inspection, nondistended, normoactive bowel sounds present Extremity: COMMON NORMALS: no pedal edema Neuro: COMMON NORMALS: patient oriented x3 Psych: COMMON NORMALS: mental status grossly normal Urinary Catheter Management: Haq: Cath Placed During This Visit: no Reason for Continuing Indwelling Catheter: Other Data 11/01/22 05:06 11/01/22 05:06 Micro: Microbiology 10/31/22 09:53 Occult Blood (FIT) - Final Stool Routine Collection 10/29/22 02:28 Urine Culture - Preliminary Urine,Clean Catch Gram Negative Rods Gram Negative Rods#2 A&P Assessment and plan (1) Status post right knee replacement: (2) Osteoarthritis of right knee: (3) Failure to thrive: (4) Generalized weakness: (5) High anion gap metabolic acidosis: (6) Atrial fibrillation: (7) Knee joint replacement status: (8) UTI (urinary tract infection): (9) Anemia: (10) Thrombocytopenia: (11) Atrial fibrillation with RVR: Plan #Failure to thrive #UTI #Generalized weakness #Urinary retention with incontinence #History of gastric bypass, alcohol abuse, Warnicke Korsakoff syndrome #Atrial fibrillation, currently rate controlled, not on anticoagulation #Knee surgery 4 weeks ago #High anion gap metabolic acidosis #Lactic acid elevated #Sacral area pressure injury, cellulitis #anemia #thrombocytopenia ? Vitals are stable. ? Lactic acid 1.0 ? Anion gap 14.9 ? completed fluids ? Continue Haq catheter. Recommend to follow-up with urology as an outpatient. Haq catheter to remain at discharge ? Physical therapy Occupational Therapy evaluation required ? Patient would benefit possibly from inpatient rehab. ? Chest x-ray reviewed. No pneumonia noted. Head CT negative for acute findings. ? UA abnormal. 2+ leukocyte esterase, greater than 100 WBC, 4+ bacteria, likely UTI ? Broaden antibiotic coverage to Zosyn ? Check blood cultures, urine culture ? Continue metoprolol tartrate 50 twice daily ? Continue folic acid, thiamine ? Wound care to be ordered for sacral area -afib rvr, resolved, coutinue cardizem 30mg q6hrs -thrombocytopenia, resolving, will order hit panel, peripheral smear, hold heparin -BPH, continue Flomax Full code SCDs, DVT prophylaxis Attestations Medical Necessity Statement*: Patient requires hospitalization for cellulitis, UTI Diagnoses Status post right knee replacement Z96.651 Osteoarthritis of right knee M17.11 Failure to thrive Generalized weakness R53.1 High anion gap metabolic acidosis E87.29 Atrial fibrillation I48.91 Knee joint replacement status Z96.659 UTI (urinary tract infection) N39.0 Anemia D64.9 Thrombocytopenia D69.6 Atrial fibrillation with RVR I48.91
--- NOTE | 2022-11-01 16:00 | PC.SOCIAL ---
IMM updated IMM dated and initialed, copy given to patient and one placed in chart.
[2022-11-02] MEDS: dilTIAZem 30 mg Tablet PO ×3 (00:01→11:50)
[2022-11-02] MEDS: acetaminophen 325 mg Tablet 650 MG PO ×2 (00:01→06:07)
[2022-11-02] MEDS: piperacillin-tazobactam 3.375 GM in sodium chloride 0.9% (plus) 50 ML IV (00:02)
[2022-11-02 00:44] VITALS: BP 111/83; PULSE 84; RESP 16; TEMP 37.1; O2SAT 96
[2022-11-02 04:34] VITALS: BP 129/81; PULSE 82; RESP 18; TEMP 37; O2SAT 100
[2022-11-02 05:59] LABS: Basophils % 0.8 %; Eosinophils # 0.2 10^3/uL (0.0-0.8); Eosinophils % 5.4 %; Hematocrit 34.4 % (42.0-52.0); Hemoglobin 11.5 g/dL (11.7-16.6); Lymphocytes # 0.6 10^3/uL (0.8-4.8); Mean Corpuscular HGB Conc 33.4 g/dL (30.0-36.0); Mean Corpuscular Volume 101.8 fl (80-94); Mean Platelet Volume 11.9 fL (7.4-10.4); Monocytes # 0.6 10^3/uL (0.2-0.9); Neutrophils # 2.45 10^3/uL (1.8-7.7); Neutrophils % 63.5 %; Nucleated Red Blood Cells % 0 %; Platelet Count 107 10^3/cmm (130-400); Red Blood Count 3.38 10^6/uL (4.1-5.3); White Blood Count 3.9 10^3/uL (4.0-10.0)
[2022-11-02 06:17] VITALS: PULSE 99
[2022-11-02 06:21] LABS: Anion Gap 12.7 (5-19); Blood Urea Nitrogen 4 mg/dL (8-23); Calcium 8.4 mg/dL (8.5-10.5); Carbon Dioxide 24 mmol/L (22-29); Chloride 106 mmol/L (98-107); Glomerular Filtration Rate 112.1 mL/min (90-130); Glucose 77 mg/dL (65-115); Osmolality Calculated 284 mOsm/kg (285-295); Potassium 3.7 mmol/L (3.5-5.1); Sodium 139 mmol/L (136-145)
--- NOTE | 2022-11-02 07:57 | PC.NURSE ---
pt refused tele, education given, patient states it restricts him on the ability to move and work on his weakness. removed tele, will notified
[2022-11-02 08:00] VITALS: BP 125/87; PULSE 101; RESP 14; TEMP 36.6; O2SAT 99
[2022-11-02] MEDS: thiamine 100 mg Tablet PO (09:48)
[2022-11-02] MEDS: tamsulosin 0.4 mg Capsule PO (09:48)
[2022-11-02] MEDS: folic acid 1 mg Tablet PO (09:48)
[2022-11-02] MEDS: amoxicillin-clav 875-125 mg Tablet 1 TAB PO (09:48)
[2022-11-02] MEDS: metoprolol tartrate 50 mg Tablet PO (09:48)
[2022-11-02] MEDS: pantoprazole DR 40 mg Tablet PO (09:48)
[2022-11-02 10:24] LABS: SARS Covid-2 Antigen negative (Negative)
--- NOTE | 2022-11-02 10:47 | PC.OT ---
PATIENT DECLINES OT TREATMENT TODAY DUE TO D/C TO SNF LATER TODAY.
--- NOTE | 2022-11-02 11:00 | P.DS_ITS ---
Discharge Providers Date of Admission: 10/29/22 03:17 Date of Discharge: November 02, 2022 Attending Provider at Admission: Krystle Ward MD Attending Provider at Discharge: Oniel Oliveira MD Primary Care Provider: Mallika Ceja MD Diagnoses at Discharge Discharge Diagnosis (1) Status post right knee replacement: Status: Acute (2) Osteoarthritis of right knee: Status: Resolved (3) Failure to thrive: Status: Acute (4) Generalized weakness: Status: Acute (5) High anion gap metabolic acidosis: Status: Acute (6) Atrial fibrillation: Status: Acute (7) Knee joint replacement status: Status: Acute (8) UTI (urinary tract infection): Status: Acute (9) Anemia: Status: Acute (10) Thrombocytopenia: Status: Acute (11) Atrial fibrillation with RVR: Status: Acute Reason for Visit Reason for Visit: WEAKNESS Hospital Course Hospital Course Ethan Hardy is a 67 year old male with past medical history of alcohol abuse, Warnicke Korsakoff syndrome, CAD, hyperlipidemia, atrial fibrillation recent knee replacement surgery 4 weeks ago presented to the hospital today for generalized weakness and inability to get out of bed for the last 5 days.? He states that he has been so weak that he cannot get out of bed.? He has been soiling himself in bed.? He lives with his sister and [id number] in the try to help but he states he just cannot get around.? He said he had home health and some physical therapy at home but according to him they were not doing the job correctly so he fired them.? He states he will be seeing Dr. Glaser soon and would like to get set up with outpatient physical therapy at the [facility].? However at this point he is unsure if he can even get to that point.? He does not drink alcohol anymore.? He complains dribbling of urine and is incontinent.? He had a gastric bypass 10 years ago.? Denies chest pain, shortness breath, abdominal pain, nausea, vomiting, diarrhea at this time.? He does have a rash on his buttocks which he states is a burning sensation. 120/85, 18, 88, 98.5, saturating 97% on room air.? Bladder scan was done which showed 615 bladder.? Haq catheter was placed.? Patient was started on the side of the bed with assistance but he could not stand for long time and had to sit back down.? He could not take any steps due to weakness. Patient was admitted to [facility] for UTI, generalized weakness, urinary retention, high anion gap metabolic acidosis, lactic acidosis, cellulitis. Patient received broad-spectrum antibiotic therapy, hydration, overall clinically improved. Discharged on 3 remaining days of Augmentin. For his atrial fibrillation had episode of A-fib with RVR during his hospitalization, requiring the addition of Cardizem. In terms of his anticoagulation, patient is considered high risk of falls and morbidity and mortality associated, with anticoagulant therapy, given his history of alcoholism, and his Warnicke's Korsakoff syndrome. However I will have patient follow with cardiology as outpatient, as he is going to a long-term facility, will be in a supervised setting, certainly anticoagulation could be an option. During his hospitalization he did develop anemia and thrombocytopenia with DVT prophylaxis anticoagulation,. Will be discharged to a long-term facility. Physical Exam Const: COMMON NORMALS: no acute distress and patient oriented x3 Resp: COMMON NORMALS: normal respiratory effort, No retractions, No use of accessory muscles and clear to auscultation bilaterally AUSCULTATION: clear to auscultation bilaterally Cardio: COMMON NORMALS: regular rate, regular rhythm, S1 normal heart sound present and S2 normal heart sound present RATE: regular rate RHYTHM: regular rhythm HEART SOUNDS: S1 normal heart sound present and S2 normal heart sound present GI: COMMON NORMALS: Normal to inspection, nondistended, normoactive bowel sounds present and non-tender Extremity: COMMON NORMALS: no pedal edema Neuro: COMMON NORMALS: patient oriented x3 Psych: COMMON NORMALS: mental status grossly normal Urinary Catheter Management: Haq: Cath Placed During This Visit: no Reason for Continuing Indwelling Catheter: Acute Urinary Retention or Obstruction Discharge Data Studies Completed and Pending Completed Studies During Hospitalization Category Date Time Status CT head wo con* [id number] Stat Cat Scan 10/29/22 00:13 Completed XR chest 1V portable [id number] Stat Exams 10/29/22 00:13 Completed US renal BI* [id number] Routine Ultrasound 10/29/22 08:30 Completed Pending at discharge Category Date Time Status Blood Culture Stat Lab 10/29/22 05:55 Results Heparin Induced Thrombocytopen Stat Lab 10/31/22 08:14 Received Radiology Impressions Chest X-Ray 10/29/22 00:13 IMPRESSION: No acute findings. Head CT 10/29/22 00:13 IMPRESSION: There are no acute intracranial findings. Stable head CT compared with 09/20/2020. Renal Ultrasound 10/29/22 08:30 IMPRESSION: Negative renal ultrasound. No acute findings. Laboratory Results WBC 3.9 10^3/uL (4.0-10.0) L 11/02/22 05:19 RBC 3.38 10^6/uL (4.1-5.3) L 11/02/22 05:19 Hgb 11.5 g/dL (11.7-16.6) L 11/02/22 05:19 Hct 34.4 % (42.0-52.0) L 11/02/22 05:19 MCV 101.8 fl (80-94) H 11/02/22 05:19 MCH 34.0 pg (28.0-34.0) 11/02/22 05:19 MCHC 33.4 g/dL (30.0-36.0) 11/02/22 05:19 RDW 14.0 % (12.1-15.1) 11/02/22 05:19 Plt Count 107 10^3/cmm (130-400) L 11/02/22 05:19 MPV 11.9 fL (7.4-10.4) H 11/02/22 05:19 Neut % (Auto) 63.5 % 11/02/22 05:19 Lymph % (Auto) 15.0 % 11/02/22 05:19 [place] % (Auto) 15.0 % 11/02/22 05:19 Eos % (Auto) 5.4 % 11/02/22 05:19 Baso % (Auto) 0.8 % 11/02/22 05:19 Neut # (Auto) 2.45 10^3/uL (1.8-7.7) 11/02/22 05:19 Lymph # (Auto) 0.6 10^3/uL (0.8-4.8) L 11/02/22 05:19 [place] # (Auto) 0.6 10^3/uL (0.2-0.9) 11/02/22 05:19 Eos # (Auto) 0.2 10^3/uL (0.0-0.8) 11/02/22 05:19 Baso # (Auto) 0.0 10^3/uL (0.0-0.1) 11/02/22 05:19 Nucleated RBC % (auto) 0 % 11/02/22 05:19 Nucleated RBCs # 0.0 /100WBC 11/02/22 05:19 Specimen Type Arterial 10/29/22 06:54 Sample Site Radial, left 10/29/22 06:54 ABG pH 7.42 (7.35-7.45) 10/29/22 06:54 ABG pCO2 23.8 mmHg (35-45) L 10/29/22 06:54 ABG pO2 91.0 mmHg (80.0-100.0) 10/29/22 06:54 ABG HCO3 15.5 mmol/L (22-26) L 10/29/22 06:54 ABG O2 Saturation 98.4 10/29/22 06:54 ABG Base Excess -7.3 mmol/L (-2.0-2.0) L 10/29/22 06:54 Nikko Test Pos 10/29/22 06:54 A-a O2 Gradient 3.6 mmHg (5-10) L 10/29/22 06:54 Hematocrit 37.4 % (42-52) L 10/29/22 06:54 Hgb O2 Saturation 96.0 % (95-100) 10/29/22 06:54 Carboxyhemoglobin 1.5 %THgb (0.4-20.1) 10/29/22 06:54 Methemoglobin 1.0 % (0.4-1.5) 10/29/22 06:54 Total Hemoglobin 12.2 g/dL (14-18) L 10/29/22 06:54 Sodium 137.0 mmol/L (131-143) 10/29/22 06:54 Potassium 3.6 mmol/L (3.5-5.0) 10/29/22 06:54 Glucose 202.0 mg/dL (70-115) H 10/29/22 06:54 Ionized Calcium 1.1 mmol/L (1.1-1.4) 10/29/22 06:54 O2 Delivery Device None 10/29/22 06:54 FiO2 21.0 % 10/29/22 06:54 Agricultural Pilot ID [email or web address] 10/29/22 06:54 Sodium 139 mmol/L (136-145) 11/02/22 05:19 Potassium 3.7 mmol/L (3.5-5.1) 11/02/22 05:19 Chloride 106 mmol/L (98-107) 11/02/22 05:19 Carbon Dioxide 24 mmol/L (22-29) 11/02/22 05:19 Anion Gap 12.7 (5-19) 11/02/22 05:19 BUN 4 mg/dL (8-23) L 11/02/22 05:19 Creatinine 0.7 mg/dL (0.7-1.2) 11/02/22 05:19 GFR Calculation 112.1 mL/min (90-130) 11/02/22 05:19 Glucose 77 mg/dL (65-115) 11/02/22 05:19 POC Glucose 114 mg/dL (70-110) H 10/31/22 11:30 Estimat Average Glucose 68 10/29/22 00:50 Hemoglobin A1c 4.0 % (4.0-6.0) 10/29/22 00:50 Calculated Osmolality 284 mOsm/kg (285-295) L 11/02/22 05:19 Lactic Acid 1.0 mmol/L (0.5-2.2) 10/29/22 09:40 Lactic Acid (Sepsis) 1.4 mmol/L (0.5-2.2) 10/29/22 05:50 Lactate 1.2 mmol/L (0.5-2.2) 10/29/22 15:10 Calcium 8.4 mg/dL (8.5-10.5) L 11/02/22 05:19 Phosphorus 2.9 mg/dL (2.5-4.5) 10/29/22 05:50 Phosphorus Cancelled 10/29/22 05:50 Magnesium 1.2 mg/dL (1.7-2.3) L 10/30/22 06:05 Iron 44 ug/dL (59-158) L 10/29/22 05:50 Ferritin 1215 ng/mL (30-400) H 10/29/22 05:50 Total Bilirubin 0.9 mg/dL (0.15-1.2) 10/30/22 06:05 AST 10 U/L (0-40) 10/30/22 06:05 ALT 6 U/L (0-41) 10/30/22 06:05 Alkaline Phosphatase 66 U/L (40-130) 10/30/22 06:05 Creatine Kinase 30 U/L (39-308) L 10/29/22 05:50 Creatine Kinase Cancelled 10/29/22 05:50 Total Protein 5.2 g/dL (6.6-8.7) L 10/30/22 06:05 Albumin 2.8 g/dL (3.5-5.2) L 10/30/22 06:05 Globulin 2.4 g/dL (1.3-4.6) 10/30/22 06:05 Lipase 18 U/L (13-60) 10/29/22 00:50 Procalcitonin 0.37 ng/mL (0-0.5) 10/29/22 05:50 Procalcitonin Cancelled 10/29/22 05:50 TSH 2.23 uIU/mL (0.27-4.20) 10/29/22 05:50 Urine Color Yellow (Yellow) 10/29/22 02:28 Urine Appearance Hazy (CLEAR) A 10/29/22 02:28 Urine pH 5 (5-7) 10/29/22 02:28 Ur Specific [place] 1.015 (1.005-1.030) 10/29/22 02:28 Urine Protein Neg (Negative) 10/29/22 02:28 Urine Glucose (UA) Norm (Normal) 10/29/22 02:28 Urine Ketones 2+ (Negative) H 10/29/22 02:28 Urine Blood Neg (Negative) 10/29/22 02:28 Urine Nitrate Negative (Negative) 10/29/22 02:28 Urine Bilirubin Neg (Negative) 10/29/22 02:28 Urine Urobilinogen Norm mg/dL (Negative) 10/29/22 02:28 Ur Leukocyte Esterase 2+ (Negative) H 10/29/22 02:28 Urine RBC 0-4 /hpf (0-2) H 10/29/22 02:28 Urine WBC >100 /hpf (0-5) H 10/29/22 02:28 Ur Squamous Epith Cells 0-4 /hpf (0-5) H 10/29/22 02:28 Amorphous Sediment Not Reportable 10/29/22 02:28 Urine Bacteria 4+ /hpf (NONE) H 10/29/22 02:28 SARS-CoV-2 Ag (Rapid) negative (Negative) 11/02/22 09:40 Vitals Last Vital Signs Temp 97.9 F 11/02/22 08:00 Pulse 101 H 11/02/22 08:00 Resp 14 11/02/22 08:00 BP 125/87 11/02/22 08:00 Pulse Ox 99 11/02/22 08:00 O2 Del Method 11/02/22 08:00 Discharge Plan Discharge Patient Disposition: Home Condition: Stable Prescriptions: New folic acid 1 mg Tablet 1 mg PO DAILY 30 Days Qty: 30 0RF amoxicillin-pot clavulanate 875-125 mg Tablet 1 tab PO BID 3 Days Qty: 6 0RF Cardizem LA 120 mg tablet extended release 24 hr 120 mg PO DAILY 30 Days Qty: 30 0RF thiamine mononitrate (vit B1) [Vitamin B-1 (mononitrate)] 100 mg Tablet 100 mg PO DAILY 30 Days Qty: 30 0RF Continued tamsulosin 0.4 mg Capsule 0.4 mg PO BID 30 Days Qty: 60 3RF metoprolol tartrate 50 mg Tablet 50 mg PO BID@0900,2100 30 Days Qty: 60 3RF Discharge Orders: Discharge Order (Routine); Ordered 11/02/22 Ordered By: Oniel Oliveira Referrals: Mallika Ceja MD [Primary Care Provider] - 11/07/22 2:50 pm Navneet Huang MD [Physician] - 1 week Discharge Diet: Cardiac Discharge Activity: Resume usual activity Patient Instructions: Opioid Safety Activity Restrictions/Additional Instructions: - Please follow-up with cardiology Discharge Attestations Time Spent in Discharge Care*: greater than 30 min Status at Discharge: Cognitive status at discharge: cognitively intact , Behavioral status at discharge: cooperative , Quality Metrics Clinical Quality Measures [ No reported AMI, CVA or VTE this stay] Coding Level of Care Code 90912 Total time (in minutes) for Discharge: 40 Diagnoses Status post right knee replacement Z96.651 Osteoarthritis of right knee M17.11 Failure to thrive Generalized weakness R53.1 High anion gap metabolic acidosis E87.29 Atrial fibrillation I48.91 Knee joint replacement status Z96.659 UTI (urinary tract infection) N39.0 Anemia D64.9 Thrombocytopenia D69.6 Atrial fibrillation with RVR I48.91
[2022-11-02 12:00] VITALS: BP 100/67; PULSE 94; RESP 16; TEMP 36.6; O2SAT 89
[2022-11-02 16:26] VITALS: BP 100/67; PULSE 94; RESP 16; TEMP 36.6; O2SAT 90
[2022-11-03 13:45] LABS: Heparin Induced Platelet AB NEGATIVE (NEGATIVE); Patient O.D 0.059
[2022-11-09 19:59] LABS: UFH High Dose, 100 IU/ML 0 % release; UFH Low Dose, 0.1 IU/ML 0 % release; UFH Low Dose, 0.5 IU/ML 0 % release; UFH SRA Result NEGATIVE (NEGATIVE)
== END 2022-11-02 15:30 | disposition skilled nursing facility (03) | DRG 690 ==
LOC: ER 10-29 00:13 → CSU 10-29 03:25 → MEDSURG 10-29 13:37
PROVIDERS: Emergency Medicine; Admitting Provider Internal Medicine; Emergency Provider Nurse Practitioner Family; PCP Family Medicine; Visit Provider Family Medicine
DX: N39.0 Urinary tract infection, site not specified (principal); E51.2 Wernicke's encephalopathy; E87.20 Acidosis, unspecified; L03.317 Cellulitis of buttock; I42.9 Cardiomyopathy, unspecified; F10.11 Alcohol abuse, in remission; I25.10 Atherosclerotic heart disease of native coronary artery without angina pectoris; E78.2 Mixed hyperlipidemia; I48.91 Unspecified atrial fibrillation; Z96.651 Presence of right artificial knee joint; Z96.641 Presence of right artificial hip joint; Z98.84 Bariatric surgery status; N40.1 Benign prostatic hyperplasia with lower urinary tract symptoms; N39.498 Other specified urinary incontinence; R33.8 Other retention of urine; R39.11 Hesitancy of micturition; Z87.01 Personal history of pneumonia (recurrent); L89.321 Pressure ulcer of left buttock, stage 1; L89.312 Pressure ulcer of right buttock, stage 2; R62.7 Adult failure to thrive; Z68.29 Body mass index [BMI] 29.0-29.9, adult; D69.6 Thrombocytopenia, unspecified; D64.9 Anemia, unspecified
CPT/HCPCS: 36415; 36416; 36600; 70450; 71045; 76770; 80048; 80051; 80053; 80503; 81001; 82274; 82330; 82550; 82728; 82805; 82962; 83036; 83540; 83605; 83690; 83735; 84100; 84145; 84443; 85025; 87040; 87086; 87426; 93005; 96365; 96372; 97110; 97116; 97161; 97165; 97530; 97535; 99285; J0295; J1644; J2543; J3411; J3475; J3490; J7030; J7042; Q3014

== ENCOUNTER → 2022-11-14 09:32 | Outpatient (BNVA) | payer MEDICARE, SELFPAY | PROVIDERS: PCP Family Medicine; Visit Provider Nurse Practitioner Family | DX: Z96.651 Presence of right artificial knee joint (principal) | CPT/HCPCS: 73560; 73565; 99024 ==

== ENCOUNTER 2022-12-23 07:38 | Observation (INO) | payer MEDICARE, SELFPAY ==
[2022-12-23] VITALS (7 sets, daily range): BP systolic 107–139; BP diastolic 86–100; PULSE 79–132; RESP 14–17; TEMP 36.4–37.2; O2SAT 90–98; BMI 29.9
--- NOTE | 2022-12-23 07:47 | ED_ITS ---
HPI - Male Genitourinary General: Chief complaint: Urogenital-Male Stated complaint: UNABLE TO URINATE Time Seen by Provider: 12/23/22 07:43 History of Present Illness: Patient presents to the ER by EMS with complaints of weakness and decreased urine output x4 days. Patient reports increased weakness and multiple falls. Patient does have a history of BPH with urinary obstruction and chronic kidney disease. Complaint: other (Possible urinary retention) Onset (ago): day(s) (4 days ago) Duration: constant and progressively worsening Severity: moderate Relieving factors: none Exacerbating factors: none Associated symptoms: Deny dysuria, nausea or vomiting Review of Systems General: Reports: 10 or more systems reviewed and unremarkable except in HPI and below Const: Denies: fever(s) or chills Eyes: Denies: change in vision or photophobia ENMT: Denies: throat pain or odynophagia Card: Denies: chest pain, palpitations or irregular heart rhythm Resp: Denies: dyspnea, productive cough or non-productive cough GI: Denies: abdominal pain, nausea or vomiting : Reports: difficulty urinating; Denies: flank pain or dysuria Musc: Denies: neck pain PFSH ED PFSH: Medical History (Updated 12/23/22 @ 19:15 by Amandeep Mascorro MD) Abnormal nuclear stress test Acute blood loss anemia Acute kidney injury Alcohol abuse Anemia Atrial fibrillation Atrial fibrillation and flutter Basicervical fracture of neck of left femur Benign essential hypertension with target blood pressure below 140/90 BPH (benign prostatic hyperplasia) BPH loc w urin obs/LUTS BPH loc w urin obs/LUTS Cardiomyopathy Carotid artery disease Right carotid is occluded Carotid artery stenosis without cerebral infarction Clostridium difficile diarrhea Community acquired pneumonia Dysuria Elevated digoxin level Elevated PSA High anion gap metabolic acidosis Hypertension Hypokalemia Hypomagnesemia Hypotension Hypotension Intermittent palpitations Intestinal malrotation Intractable nausea and vomiting Korsakoff syndrome Macrocytosis Metabolic encephalopathy Mixed hyperlipidemia Nausea vomiting and diarrhea Osteoarthritis of right knee Osteoarthritis of right knee Palpitations Premature ventricular contractions Somnolence, daytime Systolic heart failure Urinary hesitancy Wernicke encephalopathy syndrome Surgical History (Updated 12/23/22 @ 19:15 by Amandeep Mascorro MD) History of bariatric surgery Gastric sleeve ([place]) History of left knee surgery History of right hip replacement History of tonsillectomy and adenoidectomy History of ventral hernia repair x 2, supraumbilical, second time with mesh Knee joint replacement status S/P carotid endarterectomy Status post right knee replacement Family History Sister Clotting disorder Father , at age 92 CAD (coronary artery disease) Grandmother Dementia Mother , at age 78 Lung disease Hip fracture Social History Smoking and tobacco status: never smoked Alcohol intake: current Alcohol intake frequency: 3 or more drinks per day Alcohol type: hard liquor Counseling given: Yes Housing: House Marital status: Current occupational status: retired Physical Exam Const: COMMON NORMALS: no acute distress, average body habitus, patient oriented x3, no limitations, healthy appearing, alert and well nourished HENMT: COMMON NORMALS: normocephalic, atraumatic, hearing grossly normal bilaterally, external ears normal, Normal external nose present and moist oral mucous membranes HEAD & SCALP: normocephalic and atraumatic NOSE: Normal external nose present EXTERNAL EAR: Yes external ears normal Eye: COMMON NORMALS: Equal, round and reactive pupils present, EOMs intact bilaterally, conjunctivae normal and no scleral icterus CONJUNCTIVA: Yes conjunctivae normal PUPIL: Yes Equal, round and reactive pupils present Neck/C-Spine: COMMON NORMALS: full ROM, no lymphadenopathy, supple, no meningeal signs, no JVD and Thyroid normal THYROID: Thyroid normal Lymph: LYMPHATIC: no lymphadenopathy noted Chest: COMMONS NORMALS: normal inspection of the chest and normal palpation of entire chest wall Resp: COMMON NORMALS: normal respiratory effort, No retractions, No use of accessory muscles and clear to auscultation bilaterally AUSCULTATION: clear to auscultation bilaterally Cardio: COMMON NORMALS: no JVD, regular rate, regular rhythm, S1 normal heart sound present, S2 normal heart sound present, No gallops present (Cardio), No clicks present (Cardio), No murmurs present (Cardio) and No rub (Cardio) RATE: regular rate RHYTHM: regular rhythm HEART SOUNDS: S1 normal heart sound present and S2 normal heart sound present GI: COMMON NORMALS: Normal to inspection, nondistended, normoactive bowel sounds present, Soft to palpation, non-tender, No hepatosplenomegaly present and no masses PALPATION: Yes Soft to palpation and Yes No hepatosplenomegaly present : COMMON NORMALS: Yes no CVA tenderness BLADDER/KIDNEY EXAM: Yes no CVA tenderness Back/Pelvis: COMMON NORMALS: no CVA tenderness Neuro: COMMON NORMALS: patient oriented x3 SENSORIUM/ORIENTATION: Yes alert MENINGEAL SIGNS: Yes no meningeal signs Course Vital Signs: Vital signs: Vital Signs Temperature 98.4 F 12/24/22 04:00 Pulse Rate 109 H 12/24/22 04:00 Respiratory Rate 16 12/24/22 04:00 Blood Pressure 134/86 12/24/22 04:00 Pulse Oximetry 96 12/24/22 04:00 Oxygen Delivery Me thod Room Air 12/24/22 04:00 MDM - Male Medical Decision Making Patient presents to the ER with a 4-day history of worsening weakness and decreased urinary output. Patient needed help to get to the ambulance today. Patient does have a history of diverticulitis in the past. Patient feels like he is unable to empty his bladder fully. Lab work was obtained and physical exam was performed. Lab work showed patient does have a urinary tract in fection, chest x-ray was read to potentially show free air underneath the diaphragm however when we get the contrasted abdomen pelvic CT it did not show this free air but it did show proctocolitis and bladder wall thickening. Patient will be given 400 mg Cipro IV and 1 L NS here in ER. Dr. Mascorro was consulted who agreed to admit the patient observation for IV fluids and antibiotics. Differential Diagnosis Likely acute retention of urine; Unlikely urinary tract infection, priapism, urethritis, epididymitis, genital herpes simplex, prostatitis or inguinal hernia Medical Records I reviewed the patient's medical records. Lab Data I reviewed the patient's lab results. 12/24/22 04:49 12/24/22 04:49 Radiology Impressions Chest X-Ray 12/23/22 07:51 IMPRESSION: Free air under the right hemidiaphragm. This is concerning for hollow viscus perforation. In the absence of recent abdominal surgery or intervention, recommend CT of the abdomen and pelvis with intravenous and oral contrast to further assess. ADDENDUM: 12/23/22 0844 Findings discussed with Chintan Cantu at 12/23/2022 8:42 AM CDT. Abdomen/Pelvis CT 12/23/22 08:44 IMPRESSION: 1. Suspected free air on chest x-ray is not confirmed on CT. No free air is seen. 2. There is wall thickening of the distal sigmoid colon/proximal rectum raising concern for proctocolitis. A subtle mass is not excluded. Recommend direct visualization upon resolution of acute symptoms. 3. The bladder wall is thickened with adjacent edema. Considerations include partial bladder outlet obstruction or cystitis. Correlate with urinalysis. 4. Small rounded focus of edema adjacent to the descending colon that could reflect epiploic appendagitis. 5. Enlarged prostate. Correlate with serum PSA. 6. Mild right pelvic and periportal lymphadenopathy. 7. Small bilateral pleural effusions. 8. Nodules at the lung bases measuring up to 1.4 cm. As per Fleischner Society 2017 guidelines for follow-up and management of pulmonary nodules: For patients at low risk (minimal or absent history of smoking and of other known risk factors), recommend CT at 3 months, then consider CT at 18-24 months. For patient at high risk (history of smoking or of other known risk factors), recommend CT at 3 months, then CT at 18-24 months. COMMENTS: Consistent with the [employer]'s Incidental Findings Committee white paper (J Am Melva Radiol 2018): Any incidental renal lesion less than 1 cm or classified as too small to characterize, or any incidental cystic renal lesion characterized as simple-appearing, is likely benign. No follow-up imaging is recommended for these lesions per consensus recommendations based on imaging criteria. Laboratory Results WBC 9.9 10^3/uL (4.0-10.0) 12/23/22 08:26 RBC 3.78 10^6/uL (4.1-5.3) L 12/23/22 08:26 Hgb 12.5 g/dL (11.7-16.6) 12/23/22 08:26 Hct 38.6 % (42.0-52.0) L 12/23/22 08:26 MCV 102.1 fl (80-94) H 12/23/22 08:26 MCH 33.1 pg (28.0-34.0) 12/23/22 08:26 MCHC 32.4 g/dL (30.0-36.0) 12/23/22 08:26 RDW 16.9 % (12.1-15.1) H 12/23/22 08:26 Plt Count 138 10^3/cmm (130-400) 12/23/22 08:26 MPV 10.8 fL (7.4-10.4) H 12/23/22 08:26 Neut % (Auto) 86.0 % 12/23/22 08:26 Lymph % (Auto) 4.0 % 12/23/22 08:26 [place] % (Auto) 8.3 % 12/23/22 08:26 Eos % (Auto) 0.5 % 12/23/22 08:26 Baso % (Auto) 0.2 % 12/23/22 08:26 Neut # (Auto) 8.53 10^3/uL (1.8-7.7) H 12/23/22 08:26 Lymph # (Auto) 0.4 10^3/uL (0.8-4.8) L 12/23/22 08:26 [place] # (Auto) 0.8 10^3/uL (0.2-0.9) 12/23/22 08:26 Eos # (Auto) 0.1 10^3/uL (0.0-0.8) 12/23/22 08:26 Baso # (Auto) 0.0 10^3/uL (0.0-0.1) 12/23/22 08:26 Nucleated RBC % (auto) 0 % 12/23/22 08: Nucleated RBCs # 0.0 /100WBC 12/23/22 08:26 Sodium 135 mmol/L (136-145) L 12/23/22 08:26 Potassium 3.6 mmol/L (3.5-5.1) 12/23/22 08:26 Chloride 100 mmol/L (98-107) 12/23/22 08:26 Carbon Dioxide 18 mmol/L (22-29) L 12/23/22 08:26 Anion Gap 20.6 (5-19) H 12/23/22 08:26 BUN 6 mg/dL (8-23) L 12/23/22 08:26 Creatinine 0.6 mg/dL (0.7-1.2) L 12/23/22 08:26 GFR Calculation 134.0 mL/min (90-130) H 12/23/22 08:26 Glucose 97 mg/dL (65-115) 12/23/22 08:26 Calculated Osmolality 278 mOsm/kg (285-295) L 12/23/22 08:26 Lactic Acid 1.5 mmol/L (0.5-2.2) 12/23/22 08:22 Calcium 8.4 mg/dL (8.5-10.5) L 12/23/22 08:26 Phosphorus 2.9 mg/dL (2.5-4.5) 12/23/22 08:26 Magnesium 1.0 mg/dL (1.7-2.3) L 12/23/22 08:26 Total Bilirubin 1.8 mg/dL (0.15-1.2) H 12/23/22 08:26 AST 12 U/L (0-40) 12/23/22 08:26 ALT 6 U/L (0-41) 12/23/22 08:26 Alkaline Phosphatase 77 U/L (40-130) 12/23/22 08:26 Total Protein 5.9 g/dL (6.6-8.7) L 12/23/22 08:26 Albumin 3.4 g/dL (3.5-5.2) L 12/23/22 08:26 Globulin 2.5 g/dL (1.3-4.6) 12/23/22 08:26 Procalcitonin 0.13 ng/mL (0-0.5) 12/23/22 08:26 Urine Color Yellow (Yellow) 12/23/22 08:15 Urine Appearance Hazy (CLEAR) A 12/23/22 08:15 Urine pH 6 (5-7) 12/23/22 08:15 Ur Specific [place] 1.010 (1.005-1.030) 12/23/22 08:15 Urine Protein 1+ (Negative) H 12/23/22 08:15 Urine Glucose (UA) Norm (Normal) 12/23/22 08:15 Urine Ketones 1+ (Negative) H 12/23/22 08:15 Urine Blood Trace (Negative) H 12/23/22 08:15 Urine Nitrate Positive (Negative) H 12/23/22 08:15 Urine Bilirubin 1+ (Negative) H 12/23/22 08:15 Urine Urobilinogen 4+ mg/dL (Negative) H 12/23/22 08:15 Ur Leukocyte Esterase 2+ (Negative) H 12/23/22 08:15 Urine RBC 0-4 /hpf (0-2) H 12/23/22 08:15 Urine WBC >100 /hpf (0-5) H 12/23/22 08:15 Ur Squamous Epith Cells 0-4 /hpf (0-5) H 12/23/22 08:15 Amorphous Sediment Not Reportable 12/23/22 08:15 Urine Bacteria 4+ /hpf (NONE) H 12/23/22 08:15 EKG Data EKG 1: I personally reviewed and interpreted this EKG as follows: EKG Data: 12/23/22 EKG interpretation time: 08:20 Prior EKG tracings: not available for review Interpretation: EKG showed ventricular rate of 130 bpm, with A-fib with RVR type pattern, QRS 102, QTc of 437, Discharge Plan Discharge Patient Disposition: Placed in Observation Admit Provider: Amandeep Mascorro Clinical Impression: Proctocolitis Urinary tract infection Qualifiers: Urinary tract infection type: acute cystitis Hematuria presence: with hematuria Qualified Code(s): N30.01 - Acute cystitis with hematuria Coding Level of Care Code ED Healthcare Management Consultant for [facility]
--- NOTE | 2022-12-23 07:51 | XRR_ITS ---
PROCEDURE INFORMATION: Exam: XR Chest Exam date and time: 12/23/2022 8:17 AM Age: 67 years old Clinical indication: Tachycardia TECHNIQUE: Imaging protocol: Radiologic exam of the chest. Views: 1 view. COMPARISON: CR XR chest 1V portable [id number] 10/29/2022 12:20 AM FINDINGS: Lungs: Minimal scarring or atelectasis at the lung bases. No amanuel consolidation. Pleural spaces: No pleural effusion. No pneumothorax. Heart/Mediastinum: Cardiac silhouette is unchanged. No gross evidence of pneumomediastinum. Bones/joints: No gross fracture. Intraperitoneal space: There is free air under the right hemidiaphragm. XR/XR chest 1V portable [id number] IMPRESSION: Free air under the right hemidiaphragm. This is concerning for hollow viscus perforation. In the absence of recent abdominal surgery or intervention, recommend CT of the abdomen and pelvis with intravenous and oral contrast to further assess.
--- NOTE | 2022-12-23 07:51 | ECG_ITS ---
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 Measurements Intervals Quinn Rate: 130 P: 0 LA: 0 QRS: 16 QRSD: 102 T: 44 QT: 360 QTc: 531 Interpretive Statements ATRIAL FIBRILLATION WITH RAPID VENTRICULAR RESPONSE WITH ABERRANT CONDUCTION OR VENTRICULAR PREMATURE COMPLEXES LOW QRS VOLTAGE IN PRECORDIAL LEADS [QRS DEFLECTION < 1.0 mV IN CHEST LEADS] POSSIBLE ANTERIOR MYOCARDIAL INFARCTION , PROBABLY OLD [30 ms Q WAVE IN V3/V4, OR R < 0.2 mV IN V4] ABNORMAL RHYTHM ECG Compared to ECG 10/30/2022 11:18:15 Ventricular premature complex(es) now present Aberrant conduction of supraventricular beat(s) now present Myocardial infarct finding now present T-wave abnormality no longer present Electronically Signed On 12-23-2022 14:14:41 CDT by Marian Tovar M.D. [id number]
[2022-12-23] MEDS: dilTIAZem 5 mg/mL SDV 5 mL 20 MG IVP (08:32)
[2022-12-23 08:33] LABS: Add Urine Microscopic? YES; Bacteria Urine 4+ /hpf; Bilirubin Urine 1+ (Negative); Blood Urine Trace (Negative); Glucose Urine UA Norm (Normal); Ketones Urine 1+ (Negative); Leukocyte Esterase Urine 2+ (Negative); Nitrate Urine Positive (Negative); Protein Urine 1+ (Negative); RBC Urine 0-4 /hpf (0-2); Squamous Epithelial Cell Urine 0-4 /hpf (0-5); Urine Appearance Hazy (CLEAR); Urine Color Yellow (Yellow); Urobilinogen Urine 4+ mg/dL (Negative); WBC Urine >100 /hpf (0-5); pH Urine 6 (5-7)
[2022-12-23 08:34] LABS: Add Urine Culture? Yes
[2022-12-23 08:36] LABS: Basophils % 0.2 %; Eosinophils # 0.1 10^3/uL (0.0-0.8); Eosinophils % 0.5 %; Hematocrit 38.6 % (42.0-52.0); Hemoglobin 12.5 g/dL (11.7-16.6); Lymphocytes # 0.4 10^3/uL (0.8-4.8); Mean Corpuscular HGB Conc 32.4 g/dL (30.0-36.0); Mean Corpuscular Hemoglobin 33.1 pg (28.0-34.0); Mean Corpuscular Volume 102.1 fl (80-94); Mean Platelet Volume 10.8 fL (7.4-10.4); Monocytes # 0.8 10^3/uL (0.2-0.9); Monocytes % 8.3 %; Neutrophils # 8.53 10^3/uL (1.8-7.7); Nucleated Red Blood Cells % 0 %; Platelet Count 138 10^3/cmm (130-400); Red Blood Count 3.78 10^6/uL (4.1-5.3); Red Cell Distribution Width 16.9 % (12.1-15.1); White Blood Count 9.9 10^3/uL (4.0-10.0)
--- NOTE | 2022-12-23 08:44 | CTR_ITS ---
PROCEDURE INFORMATION: Exam: CT Abdomen And Pelvis With Contrast Exam date and time: 12/23/2022 9:50 AM Age: 67 years old Clinical indication: Free air in abdomen on chest x-ray. Weakness and urinary retention. TECHNIQUE: Imaging protocol: Computed tomography of the abdomen and pelvis with contrast. Radiation optimization: All CT scans at this facility use at least one of these dose optimization techniques: automated exposure control; mA and/or kV adjustment per patient size (includes targeted exams where dose is matched to clinical indication); or iterative reconstruction. Contrast material: OMNI 350; Contrast volume: 100 ml; Contrast route: INTRAVENOUS (IV); REPORTING DATA: Count of CT and Cardiac NM exams in prior 12 months: This patient has received 4 known CTs and 0 known cardiac nuclear medicine studies in the 12 months prior to the current study. COMPARISON: CT abdomen pelvis wo con [id number] 08/07/2022 2:29 PM RADIATION DOSE METRICS: Total DLP (mGy-cm): 783.19 FINDINGS: Lungs: There are nodules at the left base measuring 1.4 and 1.0 cm, respectively. Nodule in the lingula measuring 0.6 cm. No pericardial effusion. Small hiatal hernia. Pleural spaces: Small bilateral pleural effusions. There is atelectasis or scarring at the lung bases. Liver: Simple hepatic cysts measure up to 0.8 cm. There are foci of fatty infiltration adjacent to the falciform ligament. Gallbladder and bile ducts: The gallbladder is unremarkable. Pancreas: The pancreas is unremarkable. Spleen: The spleen is unremarkable. Adrenal glands: The adrenal glands are unremarkable. Kidneys and ureters: A simple right renal cyst measures 2.1 cm. A simple left renal cyst measures 1.3 cm. Subcentimeter renal hypodensities are too small to accurately characterize and require no follow-up. No hydronephrosis. Stomach and bowel: There has been prior gastric surgery. There is a small rounded focus of edema adjacent to the descending colon (series 5, image 44) that could reflect epiploic appendagitis. The entire colon is situated in the left abdomen. Colonic diverticulosis without evidence of acute diverticulitis. There is wall thickening of the distal sigmoid colon/proximal rectum raising concern for proctocolitis. A subtle mass is not excluded. Recommend direct visualization upon resolution of acute symptoms. Appendix: The appendix is unremarkable. Intraperitoneal space: No free intraperitoneal air is identified. Trace free fluid. Vasculature: No abdominal aortic aneurysm. Lymph nodes: A periportal lymph node measures 1.0 x 1.5 cm. A right pelvic lymph node measures 1.0 x 1.4 cm. Urinary bladder: Haq catheter within the bladder. The bladder wall is thickened with adjacent edema. Considerations include partial bladder outlet obstruction or cystitis. Correlate with urinalysis. Reproductive: The prostate measures 3.8 x 5.0 cm. Bones/joints: Bilateral hip hardware is incompletely visualized. No acute fracture is identified. Soft tissues: Small fat containing umbilical hernia. CT/CT abdomen pelvis w con* [id number] IMPRESSION: 1. Suspected free air on chest x-ray is not confirmed on CT. No free air is seen. 2. There is wall thickening of the distal sigmoid colon/proximal rectum raising concern for proctocolitis. A subtle mass is not excluded. Recommend direct visualization upon resolution of acute symptoms. 3. The bladder wall is thickened with adjacent edema. Considerations include partial bladder outlet obstruction or cystitis. Correlate with urinalysis. 4. Small rounded focus of edema adjacent to the descending colon that could reflect epiploic appendagitis. 5. Enlarged prostate. Correlate with serum PSA. 6. Mild right pelvic and periportal lymphadenopathy. 7. Small bilateral pleural effusions. 8. Nodules at the lung bases measuring up to 1.4 cm. As per Fleischner Society 2017 guidelines for follow-up and management of pulmonary nodules: For patients at low risk (minimal or absent history of smoking and of other known risk factors), recommend CT at 3 months, then consider CT at 18-24 months. For patient at high risk (history of smoking or of other known risk factors), recommend CT at 3 months, then CT at 18-24 months. COMMENTS: Consistent with the [employer]'s Incidental Findings Committee white paper (J Am Melva Radiol 2018): Any incidental renal lesion less than 1 cm or classified as too small to characterize, or any incidental cystic renal lesion characterized as simple-appearing, is likely benign. No follow-up imaging is recommended for these lesions per consensus recommendations based on imaging criteria.
[2022-12-23 08:53] LABS: Alanine Aminotransferase 6 U/L (0-41); Albumin Level 3.4 g/dL (3.5-5.2); Alkaline Phosphatase 77 U/L (40-130); Anion Gap 20.6 (5-19); Aspartate Amino Transferase 12 U/L (0-40); Blood Urea Nitrogen 6 mg/dL (8-23); Calcium 8.4 mg/dL (8.5-10.5); Carbon Dioxide 18 mmol/L (22-29); Chloride 100 mmol/L (98-107); Globulin 2.5 g/dL (1.3-4.6); Glucose 97 mg/dL (65-115); Osmolality Calculated 278 mOsm/kg (285-295); Phosphorus 2.9 mg/dL (2.5-4.5); Potassium 3.6 mmol/L (3.5-5.1); Sodium 135 mmol/L (136-145); Total Bilirubin 1.8 mg/dL (0.15-1.2); Total Protein 5.9 g/dL (6.6-8.7)
[2022-12-23] MEDS: ciprofloxacin 400 MG/200 ML PREMIX 200 MG IV ×2 (09:23→19:47)
[2022-12-23 09:34] LABS: Lactic Sepsis W/Reflex 1.5 mmol/L (0.5-2.2)
[2022-12-23] MEDS: iohexol 350 mg/mL 500 mL Btl (per mL) IV (09:53)
[2022-12-23] MEDS: iohexol 350 mg/mL 500 mL Btl (per mL) PO (09:55)
--- NOTE | 2022-12-23 12:07 | PM.HP ---
Providers/Chief Complaint Admitting Physician: Amandeep Mascorro MD Primary Care Provider: Mallika Ceja MD Chief Complaint: UNABLE TO URINATE History of Present Illness Ethan Hardy is a 67 year old male with a past medical history significant for atrial fibrillation, thrombocytopenia, and alcoholism who presents to the emergency department with diffuse weakness. Reports symptoms onset 4 days ago. Reports symptoms progressively worsening. He reports difficulty taking care of himself at home due to the severe weakness. Endorses associated symptoms of recurrent falls. He does endorse difficulty walking and difficulty using his hands due to ataxia. Denies fevers, chills, nausea or emesis. Review of Systems Narrative: A complete review of systems was obtained and is negative except as stated in HPI. Medications/Allergies Home Medications Medication Instructions Recorded Confirmed Last Taken Type tamsulosin 0.4 mg capsule 0.4 mg PO BID 30 days #60 caps 08/17/22 12/23/22 10/02/22 05:30 Rx metoprolol tartrate 50 mg tablet 50 mg PO DAILY 12/23/22 12/23/22 Unknown History Allergies Allergy/AdvReac Type Severity Reaction Status Date / Time No Known Allergies Allergy Verified 10/02/22 07:43 PFSH Acute PFSH: Medical History (Updated 12/23/22 @ 19:15 by Amandeep Mascorro MD) Abnormal nuclear stress test Acute blood loss anemia Acute kidney injury Alcohol abuse Anemia Atrial fibrillation Atrial fibrillation and flutter Basicervical fracture of neck of left femur Benign essential hypertension with target blood pressure below 140/90 BPH (benign prostatic hyperplasia) BPH loc w urin obs/LUTS BPH loc w urin obs/LUTS Cardiomyopathy Carotid artery disease Right carotid is occluded Carotid artery stenosis without cerebral infarction Clostridium difficile diarrhea Community acquired pneumonia Dysuria Elevated digoxin level Elevated PSA High anion gap metabolic acidosis Hypertension Hypokalemia Hypomagnesemia Hypotension Hypotension Intermittent palpitations Intestinal malrotation Intractable nausea and vomiting Korsakoff syndrome Macrocytosis Metabolic encephalopathy Mixed hyperlipidemia Nausea vomiting and diarrhea Osteoarthritis of right knee Osteoarthritis of right knee Palpitations Premature ventricular contractions Somnolence, daytime Systolic heart failure Urinary hesitancy Wernicke encephalopathy syndrome Surgical History (Updated 12/23/22 @ 19:15 by Amandeep Mascorro MD) History of bariatric surgery Gastric sleeve ([place]) History of left knee surgery History of right hip replacement History of tonsillectomy and adenoidectomy History of ventral hernia repair x 2, supraumbilical, second time with mesh Knee joint replacement status S/P carotid endarterectomy Status post right knee replacement Family History Sister Clotting disorder Father , at age 92 CAD (coronary artery disease) Grandmother Dementia Mother , at age 78 Lung disease Hip fracture Social History Smoking and tobacco status: never smoked Alcohol intake: current Alcohol intake frequency: 3 or more drinks per day Alcohol type: hard liquor Counseling given: Yes Housing: House Marital status: Current occupational status: retired Vitals/I&O/Wt Last Vital Signs Temp 97.5 F L 12/23/22 07:42 Pulse 94 12/23/22 09:37 Resp 14 12/23/22 09:37 BP 107/88 12/23/22 09:37 Pulse Ox 97 12/23/22 09:37 O2 Del Method Room Air 12/23/22 09:37 12/22/22 12/23/22 12/23/22 22:59 06:59 14:59 Intake Total 252 / 252 Balance 252 / 252 Weight last 48 hrs Weight 97.522 kg Physical Exam Narrative: General: Patient is awake and alert. Head: Normocephalic. Atraumatic. EOM intact. Neck: No JVD. Cardiovascular: RRR. No gallops. No murmurs. Lungs: Clear to auscultation, no use of accessory muscles, no crackles or wheezes. Skin: No jaundice. No rashes. Abdomen: Normal bowel sounds, abdomen soft and nontender. Rectal: Rectal exam not performed since no symptoms indicated blood loss. Extremities: No cyanosis or clubbing. Musculoskeletal: No overtly deformed joints noted . Neurological: Moves all 4 extremities. No myoclonus. Data 12/23/22 08:26 12/23/22 08:26 A&P Assessment and plan (1) Urinary tract infection: Associated with generalized weakness, debility, and physical deconditioning Follow up urine culture Start cipro Qualifiers: Hematuria presence: with hematuria Urinary tract infection type: acute cystitis Qualified Code(s): N30.01 - Acute cystitis with hematuria (2) Proctocolitis: Cipro as above Start Flagyl Further work up pendnig clinical course (3) Atrial fibrillation: Status post dilt in ED Continue metoprolol Not on AC (4) Alcoholism: Monitor for withdrawal Would benefit from cessation (5) Thrombocytopenia: Related to ETOH Continue to monitor Plan DVT ppx: SCD Code Status: Full Code Attestations Medical Necessity Statement*: Patient presents with severe weakness from UTI/proctocolitis with inability to care for himself requiring IV abx with expected hospital course not to cross 2 midnights. Coding Level of Care Code Acute Code for [facility] Diagnoses Urinary tract infection N30.01 Hematuria presence: with hematuria Urinary tract infection type: acute cystitis Proctocolitis K52.9 Atrial fibrillation I48.91 Alcoholism F10.20 Thrombocytopenia D69.6
[2022-12-23 12:52] LABS: Procalcitonin 0.13 ng/mL (0-0.5)
[2022-12-23] MEDS: tamsulosin 0.4 mg Capsule PO (18:29)
[2022-12-23] MEDS: metroNIDAZOLE IV 500 MG/100 ML PREMIX 100 MG IV (19:29)
[2022-12-23] MEDS: metoprolol tartrate 50 mg Tablet PO (20:34)
[2022-12-24] VITALS: BP 129/84; PULSE 116; RESP 15; TEMP 36.7; O2SAT 97
[2022-12-24] MEDS: acetaminophen 325 mg Tablet 650 MG PO ×3 (02:30→20:05)
[2022-12-24] MEDS: metroNIDAZOLE IV 500 MG/100 ML PREMIX 100 MG IV ×3 (02:32→18:51)
[2022-12-24 04:00] VITALS: BP 134/86; PULSE 109; RESP 16; TEMP 36.9; O2SAT 96
[2022-12-24 05:36] LABS: Basophils % 0.2 %; Eosinophils # 0.1 10^3/uL (0.0-0.8); Eosinophils % 0.8 %; Hematocrit 33.4 % (42.0-52.0); Lymphocytes # 0.4 10^3/uL (0.8-4.8); Lymphocytes % 6.9 %; Mean Corpuscular HGB Conc 32.9 g/dL (30.0-36.0); Mean Corpuscular Hemoglobin 33.3 pg (28.0-34.0); Mean Corpuscular Volume 101.2 fl (80-94); Mean Platelet Volume 12.2 fL (7.4-10.4); Monocytes # 0.8 10^3/uL (0.2-0.9); Neutrophils # 5.09 10^3/uL (1.8-7.7); Neutrophils % 79.5 %; Nucleated Red Blood Cells % 0 %; Platelet Count 113 10^3/cmm (130-400); White Blood Count 6.4 10^3/uL (4.0-10.0)
[2022-12-24 05:47] LABS: Alanine Aminotransferase < 5 U/L (0-41); Alkaline Phosphatase 62 U/L (40-130); Anion Gap 15.4 (5-19); Aspartate Amino Transferase 8 U/L (0-40); Blood Urea Nitrogen 6 mg/dL (8-23); Calcium 7.4 mg/dL (8.5-10.5); Carbon Dioxide 21 mmol/L (22-29); Chloride 99 mmol/L (98-107); Globulin 2.2 g/dL (1.3-4.6); Glucose 89 mg/dL (65-115); Magnesium 1.3 mg/dL (1.7-2.3); Osmolality Calculated 271 mOsm/kg (285-295); Phosphorus 2.9 mg/dL (2.5-4.5); Potassium 3.4 mmol/L (3.5-5.1); Sodium 132 mmol/L (136-145); Total Bilirubin 1.5 mg/dL (0.15-1.2); Total Protein 5.2 g/dL (6.6-8.7)
[2022-12-24 06:03] LABS: Vitamin B12 208 pg/mL (232-1245)
[2022-12-24 07:41] VITALS: BP 132/88; PULSE 87; RESP 16; TEMP 36.7; O2SAT 95
[2022-12-24] MEDS: metoprolol tartrate 50 mg Tablet PO ×2 (09:03→20:06)
[2022-12-24] MEDS: tamsulosin 0.4 mg Capsule PO ×2 (09:03→17:52)
[2022-12-24] MEDS: cyanocobalamin 1,000 mcg/mL SDV 1000 MCG IM (10:39)
[2022-12-24] MEDS: thiamine 100 mg Tablet PO (10:39)
[2022-12-24] MEDS: multivitamin therapeutic Tablet 1 TAB PO (10:39)
[2022-12-24] MEDS: folic acid 1 mg Tablet PO (10:39)
[2022-12-24] MEDS: magnesium sulfate premix 4 GM/100 ML PREMIX IV (10:39)
[2022-12-24 11:40] VITALS: BP 120/83; PULSE 88; RESP 17; TEMP 36.8; O2SAT 98
[2022-12-24 16:00] VITALS: BP 127/93; PULSE 102; RESP 16; TEMP 36.8; O2SAT 97
--- NOTE | 2022-12-24 18:45 | PM.PN ---
Subjective Subjective: Patient reports ongoing ataxia in hands and feet. Discussed B12 deficiency and he is agreeable to shots. Denies fevers, chills. or emesis. Reports ongoing weakness. Medications: Reviewed: Yes Vitals/I&O/Wt Last Vital Signs Temp 98.2 F 12/24/22 16:00 Pulse 102 H 12/24/22 16:00 Resp 16 12/24/22 16:00 BP 127/93 12/24/22 16:00 Pulse Ox 97 12/24/22 16:00 O2 Del Method Room Air 12/24/22 04:00 12/24/22 12/24/22 12/24/22 06:59 14:59 22:59 Intake Total 200 / 552 860 / 860 240 / 1100 Output Total 850 / 850 Balance 200 / -348 860 / 860 -610 / 250 Weight last 48 hrs Weight 97.522 kg Weight 97.522 kg Physical Exam Narrative: General: Patient is awake. Frail appearing. Head: Normocephalic. Atraumatic. EOM intact. Neck: No JVD. Cardiovascular: RRR. No gallops. No murmurs. Lungs: Clear to auscultation, no use of accessory muscles, no crackles or wheezes. Skin: No jaundice. No rashes. Abdomen: Normal bowel sounds, abdomen soft and nontender. Rectal: Rectal exam not performed since no symptoms indicated blood loss. Extremities: No cyanosis or clubbing. Musculoskeletal: No overtly deformed joints noted . Neurological: Moves all 4 extremities. No myoclonus. Data 12/24/22 04:49 12/24/22 04:49 A&P Assessment and plan (1) Urinary tract infection: Associated with generalized weakness, debility, and physical deconditioning Does not appear to Ux collected Continue cipro Qualifiers: Hematuria presence: with hematuria Urinary tract infection type: acute cystitis Qualified Code(s): N30.01 - Acute cystitis with hematuria (2) B12 deficiency: Start B12 shots (3) Proctocolitis: Benign abd exam Continue cipro/flagyl (4) Atrial fibrillation: Continue metoprolol Not on AC (5) Alcoholism: Monitor for withdrawal Would benefit from cessation (6) Thrombocytopenia: Related to ETOH Continue to monitor Plan DVT ppx: SCD Code Status: Full Code Attestations Medical Necessity Statement*: Patient requires ongoing hospitalization for IV abx and supportive care. Coding Level of Care Code Acute Code for [facility] Fwd Diagnoses Urinary tract infection N30.01 Hematuria presence: with hematuria Urinary tract infection type: acute cystitis B12 deficiency E53.8 Proctocolitis K52.9 Atrial fibrillation I48.91 Alcoholism F10.20 Thrombocytopenia D69.6
[2022-12-24 19:32] VITALS: BP 109/71; PULSE 108; RESP 17; TEMP 36.6; O2SAT 94
[2022-12-24] MEDS: ciprofloxacin 400 MG/200 ML PREMIX 200 MG IV (19:56)
[2022-12-25] VITALS: BP 112/82; PULSE 99; RESP 18; TEMP 36.4; O2SAT 96
[2022-12-25] MEDS: metroNIDAZOLE IV 500 MG/100 ML PREMIX 100 MG IV ×2 (03:08→12:37)
[2022-12-25 03:34] VITALS: BP 120/80; PULSE 94; RESP 18; TEMP 36.4; O2SAT 96
[2022-12-25 07:30] VITALS: BP 128/92; PULSE 109; RESP 18; TEMP 36.8; O2SAT 97
[2022-12-25] MEDS: ciprofloxacin 400 MG/200 ML PREMIX 200 MG IV ×2 (07:53→20:11)
[2022-12-25] MEDS: tamsulosin 0.4 mg Capsule PO ×2 (08:06→18:18)
[2022-12-25] MEDS: predniSONE 20 mg Tablet 40 MG PO (08:06)
[2022-12-25] MEDS: multivitamin therapeutic Tablet 1 TAB PO (08:06)
[2022-12-25] MEDS: thiamine 100 mg Tablet PO (08:06)
[2022-12-25] MEDS: folic acid 1 mg Tablet PO (08:06)
[2022-12-25] MEDS: cyanocobalamin 1,000 mcg/mL SDV 1000 MCG IM (08:07)
[2022-12-25] MEDS: metoprolol tartrate 50 mg Tablet PO ×2 (08:07→21:40)
[2022-12-25] MEDS: acetaminophen 325 mg Tablet 650 MG PO ×2 (08:16→18:26)
[2022-12-25 11:27] VITALS: BP 123/87; PULSE 93; RESP 18; TEMP 36.3; O2SAT 97
--- NOTE | 2022-12-25 12:49 | P.PN_ITS ---
Subjective Subjective: Afebrile Patient doing well Tolerating diet Hemodynamically stable Continue PT today Plan to discharge tomorrow Vitals/I&O/Wt Last Vital Signs Temp 97.4 F L 12/25/22 11:27 Pulse 93 12/25/22 11:27 Resp 18 12/25/22 11:27 BP 123/87 12/25/22 11:27 Pulse Ox 97 12/25/22 11:27 O2 Del Method Room Air 12/25/22 11:27 12/24/22 12/25/22 12/25/22 22:59 06:59 14:59 Intake Total 340 / 1200 620 / 620 Output Total 1350 / 1350 1250 / 2600 Balance -1010 / -150 -1250 / -1400 620 / 620 Physical Exam Narrative: Awake and alert GCS 15 Currently on room air S1, S2 Abdomen soft Nonfocal neuro exam Data 12/24/22 04:49 12/24/22 04:49 Micro: Microbiology 12/23/22 08:15 Urine Culture - Preliminary Urine,Clean Catch Gram Negative Rods A&P Assessment and plan (1) B12 deficiency: (2) Urinary tract infection: Qualifiers: Hematuria presence: with hematuria Urinary tract infection type: acute cystitis Qualified Code(s): N30.01 - Acute cystitis with hematuria (3) Proctocolitis: (4) Thrombocytopenia: (5) Atrial fibrillation: (6) Intermittent palpitations: (7) Premature ventricular contractions: (8) Alcoholism: (9) BPH loc w urin obs/LUTS: Plan UTI/proctocolitis Continue IV antibiotics until the day of discharge Doing well No sign of sepsis Alcoholism continue thiamine and folic acid Thrombocytopenia related to alcoholism Continue PT evaluation Full code Cardiac diet Hypomagnesemia: Repleted Remove Haq catheter BPH continue tamsulosin Attestations Medical Necessity Statement*: Plan to discharge tomorrow Diagnoses B12 deficiency E53.8 Urinary tract infection N30.01 Hematuria presence: with hematuria Urinary tract infection type: acute cystitis Proctocolitis K52.9 Thrombocytopenia D69.6 Atrial fibrillation I48.91 Intermittent palpitations R00.2 Premature ventricular contractions I49.3 Alcoholism F10.20 BPH loc w urin obs/LUTS N40.1
[2022-12-25 16:00] VITALS: BP 130/76; PULSE 115; RESP 18; TEMP 36.3; O2SAT 96
[2022-12-25] MEDS: magnesium oxide 400 mg tablet PO (18:18)
[2022-12-25 19:56] VITALS: BP 110/72; PULSE 108; RESP 16; TEMP 36.6; O2SAT 97
[2022-12-26] VITALS: BP 114/82; PULSE 92; RESP 16; TEMP 36.8; O2SAT 97
[2022-12-26 04:00] VITALS: BP 131/93; PULSE 92; RESP 17; TEMP 36.7; O2SAT 98
[2022-12-26 05:20] LABS: Basophils % 0.2 %; Eosinophils % 0.7 %; Hematocrit 31.3 % (42.0-52.0); Lymphocytes # 0.5 10^3/uL (0.8-4.8); Lymphocytes % 12.4 %; Mean Corpuscular HGB Conc 31.9 g/dL (30.0-36.0); Mean Corpuscular Hemoglobin 33.3 pg (28.0-34.0); Mean Corpuscular Volume 104.3 fl (80-94); Mean Platelet Volume 11.7 fL (7.4-10.4); Monocytes # 0.8 10^3/uL (0.2-0.9); Monocytes % 17.2 %; Neutrophils # 3.01 10^3/uL (1.8-7.7); Nucleated Red Blood Cells % 0 %; Platelet Count 131 10^3/cmm (130-400); White Blood Count 4.4 10^3/uL (4.0-10.0)
[2022-12-26 05:39] LABS: Blood Urea Nitrogen 12 mg/dL (8-23); Calcium 7.9 mg/dL (8.5-10.5); Carbon Dioxide 21 mmol/L (22-29); Chloride 101 mmol/L (98-107); Glucose 86 mg/dL (65-115); Osmolality Calculated 277 mOsm/kg (285-295); Sodium 134 mmol/L (136-145)
[2022-12-26 05:41] LABS: Anion Gap 15.4 (5-19); Potassium 3.4 mmol/L (3.5-5.1)
[2022-12-26 07:32] VITALS: BP 132/87; PULSE 98; RESP 17; TEMP 36.7; O2SAT 96
[2022-12-26] MEDS: acetaminophen 325 mg Tablet 650 MG PO (08:12)
[2022-12-26] MEDS: metroNIDAZOLE 500 MG Tablet PO (08:12)
[2022-12-26] MEDS: metoprolol tartrate 50 mg Tablet PO (08:12)
[2022-12-26] MEDS: thiamine 100 mg Tablet PO (08:13)
[2022-12-26] MEDS: ciprofloxacin 500 mg Tablet PO (08:13)
[2022-12-26] MEDS: folic acid 1 mg Tablet PO (08:13)
[2022-12-26] MEDS: magnesium oxide 400 mg tablet PO (08:13)
[2022-12-26] MEDS: tamsulosin 0.4 mg Capsule PO (08:13)
[2022-12-26] MEDS: multivitamin therapeutic Tablet 1 TAB PO (08:13)
[2022-12-26] MEDS: cyanocobalamin 1,000 mcg/mL SDV 1000 MCG IM (08:53)
--- NOTE | 2022-12-26 10:45 | P.DS_ITS ---
Discharge Providers Date of Admission: 12/23/22 10:56 Date of Discharge: December 26, 2022 Attending Provider at Admission: Amandeep Mascorro MD Attending Provider at Discharge: Nicholas Madrid MD Primary Care Provider: Mallika Ceja MD Diagnoses at Discharge Discharge Diagnosis (1) B12 deficiency: Status: Acute (2) Urinary tract infection: Status: Acute Qualifiers: Hematuria presence: with hematuria Urinary tract infection type: acute cystitis Qualified Code(s): N30.01 - Acute cystitis with hematuria (3) Proctocolitis: Status: Acute (4) Thrombocytopenia: Status: Acute (5) Atrial fibrillation: Status: Acute (6) Intermittent palpitations: Status: Acute (7) Premature ventricular contractions: Status: Acute (8) Alcoholism: Status: Acute (9) BPH loc w urin obs/LUTS: Status: Acute Reason for Visit Reason for Visit: UNABLE TO URINATE Hospital Course Hospital Course 67-year-old male who was admitted to the hospital for evaluation and management of A-fib, UTI proctocolitis he was given IV ciprofloxacin and Flagyl, remained afebrile, cultures negative, able to work with PT, patient is willing to use Eliquis 5 mg twice a day and AV cristina blocking agents, staying compliant with his medication. I will also add thiamine for his history of alcohol abuse. Culture showed Enterobacter, sensitive to Levaquin. Patient is being discharged with stable hemodynamics, he will get 10 days of levofloxacin. There was concern for free air however CT abdomen did not confirm any perforation of viscus, patient remained hemodynamically stable. Patient will need sigmoidoscopy versus colonoscopy 2 weeks after his infection has cleared we will give him referral to see Dr. Cuellar outpatient Physical Exam Narrative: Awake and alert Abdomen soft GCS 15 Able to walk around with a walker Currently doing well on room air A-fib without RVR Discharge Data Studies Completed and Pending Completed Studies During Hospitalization Category Date Time Status CT abdomen pelvis w con* [id number] Stat Cat Scan 12/23/22 08:44 Completed XR chest 1V portable [id number] Stat Exams 12/23/22 07:51 Completed Radiology Impressions Chest X-Ray 12/23/22 07:51 IMPRESSION: Free air under the right hemidiaphragm. This is concerning for hollow viscus perforation. In the absence of recent abdominal surgery or intervention, recommend CT of the abdomen and pelvis with intravenous and oral contrast to further assess. ADDENDUM: 12/23/22 0844 Findings discussed with Chintan Cantu at 12/23/2022 8:42 AM CDT. Abdomen/Pelvis CT 12/23/22 08:44 IMPRESSION: 1. Suspected free air on chest x-ray is not confirmed on CT. No free air is seen. 2. There is wall thickening of the distal sigmoid colon/proximal rectum raising concern for proctocolitis. A subtle mass is not excluded. Recommend direct visualization upon resolution of acute symptoms. 3. The bladder wall is thickened with adjacent edema. Considerations include partial bladder outlet obstruction or cystitis. Correlate with urinalysis. 4. Small rounded focus of edema adjacent to the descending colon that could reflect epiploic appendagitis. 5. Enlarged prostate. Correlate with serum PSA. 6. Mild right pelvic and periportal lymphadenopathy. 7. Small bilateral pleural effusions. 8. Nodules at the lung bases measuring up to 1.4 cm. As per Fleischner Society 2017 guidelines for follow-up and management of pulmonary nodules: For patients at low risk (minimal or absent history of smoking and of other known risk factors), recommend CT at 3 months, then consider CT at 18-24 months. For patient at high risk (history of smoking or of other known risk factors), recommend CT at 3 months, then CT at 18-24 months. COMMENTS: Consistent with the [employer]'s Incidental Findings Committee white paper (J Am Melva Radiol 2018): Any incidental renal lesion less than 1 cm or classified as too small to characterize, or any incidental cystic renal lesion characterized as simple-appearing, is likely benign. No follow-up imaging is recommended for these lesions per consensus recommendations based on imaging criteria. Laboratory Results WBC 4.4 10^3/uL (4.0-10.0) 12/26/22 04:49 RBC 3.00 10^6/uL (4.1-5.3) L 12/26/22 04:49 Hgb 10.0 g/dL (11.7-16.6) L 12/26/22 04:49 Hct 31.3 % (42.0-52.0) L 12/26/22 04:49 MCV 104.3 fl (80-94) H 12/26/22 04:49 MCH 33.3 pg (28.0-34.0) 12/26/22 04:49 MCHC 31.9 g/dL (30.0-36.0) 12/26/22 04:49 RDW 17.0 % (12.1-15.1) H 12/26/22 04:49 Plt Count 131 10^3/cmm (130-400) 12/26/22 04:49 MPV 11.7 fL (7.4-10.4) H 12/26/22 04:49 Neut % (Auto) 69.0 % 12/26/22 04:49 Lymph % (Auto) 12.4 % 12/26/22 04:49 [place] % (Auto) 17.2 % 12/26/22 04:49 Eos % (Auto) 0.7 % 12/26/22 04:49 Baso % (Auto) 0.2 % 12/26/22 04:49 Neut # (Auto) 3.01 10^3/uL (1.8-7.7) 12/26/22 04:49 Lymph # (Auto) 0.5 10^3/uL (0.8-4.8) L 12/26/22 04:49 [place] # (Auto) 0.8 10^3/uL (0.2-0.9) 12/26/22 04:49 Eos # (Auto) 0.0 10^3/uL (0.0-0.8) 12/26/22 04:49 Baso # (Auto) 0.0 10^3/uL (0.0-0.1) 12/26/22 04:49 Nucleated RBC % (auto) 0 % 12/26/22 04:49 Nucleated RBCs # 0.0 /100WBC 12/26/22 04:49 Sodium 134 mmol/L (136-145) L 12/26/22 04:49 Potassium 3.4 mmol/L (3.5-5.1) L 12/26/22 04:49 Chloride 101 mmol/L (98-107) 12/26/22 04:49 Carbon Dioxide 21 mmol/L (22-29) L 12/26/22 04:49 Anion Gap 15.4 (5-19) 12/26/22 04:49 BUN 12 mg/dL (8-23) 12/26/22 04:49 Creatinine 0.6 mg/dL (0.7-1.2) L 12/26/22 04:49 GFR Calculation 134.0 mL/min (90-130) H 12/26/22 04:49 Glucose 86 mg/dL (65-115) 12/26/22 04:49 Calculated Osmolality 277 mOsm/kg (285-295) L 12/26/22 04:49 Lactic Acid 1.5 mmol/L (0.5-2.2) 12/23/22 08:22 Calcium 7.9 mg/dL (8.5-10.5) L 12/26/22 04:49 Phosphorus 2.9 mg/dL (2.5-4.5) 12/24/22 04:49 Magnesium 1.3 mg/dL (1.7-2.3) L 12/24/22 04:49 Total Bilirubin 1.5 mg/dL (0.15-1.2) H 12/24/22 04:49 AST 8 U/L (0-40) 12/24/22 04:49 ALT < 5 U/L (0-41) 12/24/22 04:49 Alkaline Phosphatase 62 U/L (40-130) 12/24/22 04:49 Total Protein 5.2 g/dL (6.6-8.7) L 12/24/22 04:49 Albumin 3.0 g/dL (3.5-5.2) L 12/24/22 04:49 Globulin 2.2 g/dL (1.3-4.6) 12/24/22 04:49 Vitamin B12 208 pg/mL (232-1245) L 12/24/22 04:49 Procalcitonin 0.13 ng/mL (0-0.5) 12/23/22 08:26 Urine Color Yellow (Yellow) 12/23/22 08:15 Urine Appearance Hazy (CLEAR) A 12/23/22 08:15 Urine pH 6 (5-7) 12/23/22 08:15 Ur Specific [place] 1.010 (1.005-1.030) 12/23/22 08:15 Urine Protein 1+ (Negative) H 12/23/22 08:15 Urine Glucose (UA) Norm (Normal) 12/23/22 08:15 Urine Ketones 1+ (Negative) H 12/23/22 08:15 Urine Blood Trace (Negative) H 12/23/22 08:15 Urine Nitrate Positive (Negative) H 12/23/22 08:15 Urine Bilirubin 1+ (Negative) H 12/23/22 08:15 Urine Urobilinogen 4+ mg/dL (Negative) H 12/23/22 08:15 Ur Leukocyte Esterase 2+ (Negative) H 12/23/22 08:15 Urine RBC 0-4 /hpf (0-2) H 12/23/22 08:15 Urine WBC >100 /hpf (0-5) H 12/23/22 08:15 Ur Squamous Epith Cells 0-4 /hpf (0-5) H 12/23/22 08:15 Amorphous Sediment Not Reportable 12/23/22 08:15 Urine Bacteria 4+ /hpf (NONE) H 12/23/22 08:15 Vitals Last Vital Signs Temp 98.0 F 12/26/22 07:32 Pulse 98 12/26/22 07:32 Resp 17 12/26/22 07:32 BP 132/87 12/26/22 07:32 Pulse Ox 96 12/26/22 07:32 O2 Del Method Room Air 12/26/22 04:00 Discharge Plan Discharge Patient Disposition: Home Condition: Stable Prescriptions: New magnesium oxide 400 mg (241.3 mg magnesium) Tablet 400 mg PO BID Qty: 10 0RF folic acid 1 mg Tablet 1 mg PO DAILY Qty: 30 0RF thiamine mononitrate (vit B1) [Vitamin B-1 (mononitrate)] 100 mg Tablet 100 mg PO DAILY Qty: 60 0RF levofloxacin 750 mg tablet 750 mg PO DAILY 10 Days Qty: 10 0RF cyanocobalamin (vitamin B-12) 1,000 mcg tablet 1,000 mcg PO DAILY Qty: 60 0RF Continued tamsulosin 0.4 mg Capsule 0.4 mg PO BID 30 Days Qty: 60 3RF Changed metoprolol tartrate 50 mg tablet 50 mg PO BIDWM Qty: 60 3RF Discharge Orders: Discharge Order (Routine); Ordered 12/26/22 Ordered By: Nicholas Madrid Referrals: Mallika Ceja MD [Primary Care Provider] - Maxim Cuellar DO [Physician] - 2 weeks (Colonoscopy versus sigmoidoscopy) Patient Instructions: Opioid Safety Discharge Attestations Time Spent in Discharge Care*: greater than 30 min Status at Discharge: Cognitive status at discharge: cognitively intact , Behavioral status at discharge: cooperative , Quality Metrics Clinical Quality Measures [ No reported AMI, CVA or VTE this stay] Coding Level of Care Code Acute Code for Chg Fwd Diagnoses B12 deficiency E53.8 Urinary tract infection N30.01 Hematuria presence: with hematuria Urinary tract infection type: acute cystitis Proctocolitis K52.9 Thrombocytopenia D69.6 Atrial fibrillation I48.91 Intermittent palpitations R00.2 Premature ventricular contractions I49.3 Alcoholism F10.20 BPH loc w urin obs/LUTS N40.1
--- NOTE | 2022-12-26 11:06 | PC.SOCIAL ---
Pt is in Observation IMM not given since pt is in Observation.
[2022-12-26 11:32] VITALS: BP 103/76; PULSE 94; RESP 17; TEMP 36.7; O2SAT 98
== END 2022-12-26 12:44 | disposition home or self-care (01) ==
LOC: ER 10:56 → MEDSURG 11:35
PROVIDERS: Admitting Provider Internal Medicine; Emergency Provider Emergency Medicine; PCP Family Medicine; Visit Provider Internal Medicine
DX: I48.91 Unspecified atrial fibrillation (principal); N30.01 Acute cystitis with hematuria; B96.89 Other specified bacterial agents as the cause of diseases classified elsewhere; F10.20 Alcohol dependence, uncomplicated; N40.1 Benign prostatic hyperplasia with lower urinary tract symptoms; R53.1 Weakness; R29.6 Repeated falls; R00.0 Tachycardia, unspecified; R91.8 Other nonspecific abnormal finding of lung field; D69.59 Other secondary thrombocytopenia; R27.0 Ataxia, unspecified; E53.8 Deficiency of other specified B group vitamins; R33.8 Other retention of urine
CPT/HCPCS: 36415; 71045; 74177; 80048; 80053; 81001; 82607; 83605; 83735; 84100; 84145; 85025; 87077; 87086; 87186; 93005; 96365; 96366; 96367; 96372; 96375; 97110; 97161; 97530; 99285; G0378; J0744; J2920; J3420; J3475; J3490; J7512; Q9967

== ENCOUNTER 2023-03-02 06:16 | Inpatient (IN) | payer MEDICARE, SELFPAY ==
[2023-03-02] VITALS (59 sets, daily range): BP systolic 119–176; BP diastolic 90–111; PULSE 84–142; RESP 18–34; TEMP 36.9–37.1; O2SAT 87–98; BMI 27.8; BMI 27.5
--- NOTE | 2023-03-02 06:34 | ECG_ITS ---
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 Measurements Intervals [place] Rate: 127 P: 0 [place]: 0 QRS: 36 QRSD: 97 T: 84 QT: 334 QTc: 486 Interpretive Statements ATRIAL FIBRILLATION WITH RAPID VENTRICULAR RESPONSE LOW QRS VOLTAGE IN EXTREMITY LEADS [QRS DEFLECTION < 0.5 mV IN LIMB LEADS] MODERATE ST DEPRESSION [0.05+ mV ST DEPRESSION] Compared to ECG 12/23/2022 08:20:15 ST (T wave) deviation now present Aberrant conduction of supraventricular beat(s) no longer present Ventricular premature complex(es) no longer present Myocardial infarct finding no longer present Electronically Signed On 03-02-2023 13:39:05 CDT by Marian Tovar M.D. [email or web address].[email or web address]/store/[id number] f
--- NOTE | 2023-03-02 06:35 | W.ED.WEAKNES ---
HPI - Weakness General: Chief complaint: Weakness Stated complaint: Bilateral leg weakness/ Urinary retention Time Seen by Provider: 03/02/23 06:18 Source: patient Mode of arrival: EMS History of Present Illness: 59-year-old male presents emergency room with complaints of not being able to walk the last several days. He states for last few weeks has had increasing weakness in his legs. He also states he has not urinated for several days. He has not taken his morning medications today. He denies any chest pain or shortness of breath states he just simply feels weak. He has had issues with renal insufficiency in the past. MD Complaint: generalized weakness Onset (ago): week(s) Location: LLE and RLE Severity: moderate Relieving factors: none Exacerbating factors: none Associated symptoms: Denies chest pain, chills, confusion, melena, decreased appetite, dysuria, easy bruising, fever(s), headache(s), myalgias, nausea, rash, short of breath, syncope or vomiting Review of Systems Const: Denies: fever(s) or chills Card: Reports: palpitations and irregular heart rhythm; Denies: chest pain or syncope Resp: Denies: dyspnea, productive cough or non-productive cough GI: Denies: abdominal pain, nausea, vomiting or melena : Reports: difficulty urinating and oliguria; Denies: dysuria Musc: Denies: neck pain or back pain Neuro: Denies: headache(s) or confusion Panfilo/Lymph: Denies: easy bruising PFSH ED PFSH: Medical History Abnormal nuclear stress test Acute blood loss anemia Acute kidney injury Alcohol abuse Alcoholism Anemia Atrial fibrillation Atrial fibrillation Atrial fibrillation and flutter B12 deficiency Basicervical fracture of neck of left femur Benign essential hypertension with target blood pressure below 140/90 BPH (benign prostatic hyperplasia) BPH loc w urin obs/LUTS BPH loc w urin obs/LUTS Cardiomyopathy Carotid artery disease Right carotid is occluded Carotid artery stenosis without cerebral infarction Clostridium difficile diarrhea Community acquired pneumonia Dysuria Elevated digoxin level Elevated PSA High anion gap metabolic acidosis Hypertension Hypokalemia Hypomagnesemia Hypotension Hypotension Intermittent palpitations Intestinal malrotation Intractable nausea and vomiting Korsakoff syndrome Macrocytosis Metabolic encephalopathy Mixed hyperlipidemia Nausea vomiting and diarrhea Osteoarthritis of right knee Osteoarthritis of right knee Palpitations Premature ventricular contractions Proctocolitis Somnolence, daytime Systolic heart failure Thrombocytopenia Urinary hesitancy Urinary tract infection Wernicke encephalopathy syndrome Surgical History History of bariatric surgery Gastric sleeve ([place]) History of left knee surgery History of right hip replacement History of tonsillectomy and adenoidectomy History of ventral hernia repair x 2, supraumbilical, second time with mesh Knee joint replacement status S/P carotid endarterectomy Status post right knee replacement Family History Sister Clotting disorder Father , at age 92 CAD (coronary artery disease) Grandmother Dementia Mother , at age 78 Lung disease Hip fracture Social History Smoking and tobacco status: never smoked Alcohol intake: current Alcohol intake frequency: 3 or more drinks per day Alcohol type: hard liquor Counseling given: Yes Housing: House Marital status: Current occupational status: retired Physical Exam Const: GENERAL APPEARANCE: cooperative and comfortable ORIENTATION/CONSCIOUSNESS: Yes awake, Yes oriented to person, Yes oriented to place and Yes oriented to time HENMT: COMMON NORMALS: normocephalic, atraumatic and hearing grossly normal bilaterally HEAD & SCALP: normocephalic and atraumatic Resp: COMMON NORMALS: normal respiratory effort, No retractions, No use of accessory muscles and clear to auscultation bilaterally AUSCULTATION: clear to auscultation bilaterally Cardio: COMMON NORMALS: No murmurs present (Cardio) RATE: tachycardic RHYTHM: abnormal rhythm irregularly irregular GI: COMMON NORMALS: Soft to palpation and No hepatosplenomegaly present AUSCULTATION: Yes normoactive bowel sounds PALPATION: Yes Soft to palpation, No Tenderness to palpation present (GI), No Guarding due to palpation present (GI) and Yes No hepatosplenomegaly present Extremity: COMMON NORMALS: normal to inspection, capillary refill normal, no clubbing, cyanosis or edema, no calf tenderness and no pedal edema Neuro: SENSORIUM/ORIENTATION: Yes oriented to person, Yes oriented to place and Yes oriented to time Skin: COMMON NORMALS: no rashes or lesions noted GENERAL SKIN EXAM: no rashes or lesions noted Course Vital Signs: Vital signs: Vital Signs Temperature 98.7 F 03/02/23 06:18 Pulse Rate 96 03/02/23 08:30 Respiratory Rate 25 H 03/02/23 08:30 Blood Pressure 133/97 03/02/23 08:30 Pulse Oximetry 94 03/02/23 08:30 Oxygen Delivery Me thod Room Air 03/02/23 06:42 MDM - Weakness Medical Decision Making Metabolic acidosis with generalized weakness and cystitis. He has a history of alcohol use as macrocytosis persistent elevation of T. bili which has been ongoing. Think some of his weakness is due to alcoholic peripheral neuropathy and cerebellar ataxia also due to his alcoholism. We will admit for the metabolic acidosis cystitis and weakness bipin with hospitalist orders written Medical Records I reviewed the patient's medical records. Lab Data I reviewed the patient's lab results. 03/02/23 06:27 03/02/23 06:27 Laboratory Results WBC 4.8 10^3/uL (4.0-10.0) 03/02/23 06:27 RBC 3.64 10^6/uL (4.1-5.3) L 03/02/23 06:27 Hgb 12.5 g/dL (11.7-16.6) 03/02/23 06:27 Hct 39.9 % (42.0-52.0) L 03/02/23 06:27 MCV 109.6 fl (80-94) H 03/02/23 06:27 MCH 34.3 pg (28.0-34.0) H 03/02/23 06:27 MCHC 31.3 g/dL (30.0-36.0) 03/02/23 06:27 RDW 16.1 % (12.1-15.1) H 03/02/23 06:27 Plt Count 97 10^3/cmm (130-400) L 03/02/23 06:27 MPV 12.5 fL (7.4-10.4) H 03/02/23 06:27 Neut % (Auto) 72.9 % 03/02/23 06:27 Lymph % (Auto) 9.5 % 03/02/23 06:27 [place] % (Auto) 16.4 % 03/02/23 06:27 Eos % (Auto) 0.4 % 03/02/23 06:27 Baso % (Auto) 0.4 % 03/02/23 06:27 Neut # (Auto) 3.46 10^3/uL (1.8-7.7) 03/02/23 06:27 Lymph # (Auto) 0.5 10^3/uL (0.8-4.8) L 03/02/23 06:27 [place] # (Auto) 0.8 10^3/uL (0.2-0.9) 03/02/23 06:27 Eos # (Auto) 0.0 10^3/uL (0.0-0.8) 03/02/23 06: Baso # (Auto) 0.0 10^3/uL (0.0-0.1) 03/02/23 06: Nucleated RBC % (auto) 0 % 03/02/23 06: Nucleated RBCs # 0.0 /100WBC 03/02/23 06:27 Sodium 141 mmol/L (136-145) 03/02/23 06:27 Potassium 4.1 mmol/L (3.5-5.1) 03/02/23 06:27 Chloride 100 mmol/L (98-107) 03/02/23 06:27 Carbon Dioxide 14 mmol/L (22-29) L 03/02/23 06:27 Anion Gap 31.1 (5-19) H 03/02/23 06:27 BUN 9 mg/dL (8-23) 03/02/23 06:27 Creatinine 0.8 mg/dL (0.7-1.2) 03/02/23 06:27 GFR Calculation 96.1 mL/min (90-130) 03/02/23 06:27 Glucose 111 mg/dL (65-115) 03/02/23 06:27 Calculated Osmolality 291 mOsm/kg (285-295) 03/02/23 06:27 Calcium 8.3 mg/dL (8.5-10.5) L 03/02/23 06:27 Magnesium 1.2 mg/dL (1.7-2.3) L 03/02/23 06:27 Total Bilirubin 2.0 mg/dL (0.15-1.2) H 03/02/23 06:27 AST 32 U/L (0-40) 03/02/23 06:27 ALT 22 U/L (0-41) 03/02/23 06:27 Alkaline Phosphatase 83 U/L (40-130) 03/02/23 06:27 Troponin T Baseline 19 ng/L (0-15) H 03/02/23 06:27 Total Protein 6.3 g/dL (6.6-8.7) L 03/02/23 06:27 Albumin 3.7 g/dL (3.5-5.2) 03/02/23 06:27 Globulin 2.6 g/dL (1.3-4.6) 03/02/23 06:27 Urine Color Yellow (Yellow) 03/02/23 06:49 Urine Appearance Cloudy (CLEAR) A 03/02/23 06:49 Urine pH 5 (5-7) 03/02/23 06:49 Ur Specific [place] 1.020 (1.005-1.030) 03/02/23 06:49 Urine Protein 1+ (Negative) H 03/02/23 06:49 Urine Glucose (UA) Norm (Normal) 03/02/23 06:49 Urine Ketones 2+ (Negative) H 03/02/23 06:49 Urine Blood 2+ (Negative) H 03/02/23 06:49 Urine Nitrate Negative (Negative) 03/02/23 06:49 Urine Bilirubin 1+ (Negative) H 03/02/23 06:49 Urine Urobilinogen 4 mg/dL (Negative) H 03/02/23 06:49 Ur Leukocyte Esterase 2+ (Negative) H 03/02/23 06:49 Urine RBC 0-4 /hpf (0-2) H 03/02/23 06:49 Urine WBC 55-80 /hpf (0-5) H 03/02/23 06:49 Ur Squamous Epith Cells 5-10 /hpf (0-5) H 03/02/23 06:49 Amorphous Sediment Not Reportable 03/02/23 06:49 Urine Bacteria 4+ /hpf (NONE) H 03/02/23 06:49 Ethyl Alcohol < 10 mg/dL (0-10) 03/02/23 06:27 Discharge Plan Discharge Patient Disposition: Placed in Observation Clinical Impression: High anion gap metabolic acidosis, Cystitis, Alcoholic peripheral neuropathy, 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
[2023-03-02] MEDS: metoprolol tartrate 1 mg/1 mL SDV 5 mL 2.5 MG IVP ×2 (06:37→07:16)
[2023-03-02] MEDS: metoprolol tartrate 50 mg Tablet PO ×2 (06:38→17:47)
[2023-03-02 06:49] LABS: Basophils % 0.4 %; Eosinophils % 0.4 %; Hematocrit 39.9 % (42.0-52.0); Hemoglobin 12.5 g/dL (11.7-16.6); Lymphocytes # 0.5 10^3/uL (0.8-4.8); Lymphocytes % 9.5 %; Mean Corpuscular HGB Conc 31.3 g/dL (30.0-36.0); Mean Corpuscular Hemoglobin 34.3 pg (28.0-34.0); Mean Corpuscular Volume 109.6 fl (80-94); Mean Platelet Volume 12.5 fL (7.4-10.4); Monocytes # 0.8 10^3/uL (0.2-0.9); Monocytes % 16.4 %; Neutrophils # 3.46 10^3/uL (1.8-7.7); Neutrophils % 72.9 %; Nucleated Red Blood Cells % 0 %; Platelet Count 97 10^3/cmm (130-400); Red Blood Count 3.64 10^6/uL (4.1-5.3); Red Cell Distribution Width 16.1 % (12.1-15.1); White Blood Count 4.8 10^3/uL (4.0-10.0)
--- NOTE | 2023-03-02 06:54 | PC.NURSE ---
Report given to NEMESIO Sullivan who assumed care of pt at this time
[2023-03-02 06:57] LABS: Alanine Aminotransferase 22 U/L (0-41); Albumin Level 3.7 g/dL (3.5-5.2); Alkaline Phosphatase 83 U/L (40-130); Blood Urea Nitrogen 9 mg/dL (8-23); Calcium 8.3 mg/dL (8.5-10.5); Carbon Dioxide 14 mmol/L (22-29); Chloride 100 mmol/L (98-107); Globulin 2.6 g/dL (1.3-4.6); Glomerular Filtration Rate 96.1 mL/min (90-130); Glucose 111 mg/dL (65-115); Osmolality Calculated 291 mOsm/kg (285-295); Sodium 141 mmol/L (136-145); Total Protein 6.3 g/dL (6.6-8.7)
[2023-03-02 07:13] LABS: Anion Gap 31.1 (5-19); Aspartate Amino Transferase 32 U/L (0-40); Potassium 4.1 mmol/L (3.5-5.1); Troponin(5th) Baseline 19 ng/L (0-15)
[2023-03-02] MEDS: sodium chloride 0.9% 1,000 ML 999 ML IV (07:28)
[2023-03-02 07:29] LABS: Add Urine Culture? Yes; Add Urine Microscopic? YES; Bacteria Urine 4+ /hpf; Bilirubin Urine 1+ (Negative); Blood Urine 2+ (Negative); Glucose Urine UA Norm (Normal); Ketones Urine 2+ (Negative); Leukocyte Esterase Urine 2+ (Negative); Nitrate Urine Negative (Negative); Protein Urine 1+ (Negative); RBC Urine 0-4 /hpf (0-2); Urine Appearance Cloudy (CLEAR); Urine Color Yellow (Yellow); Urobilinogen Urine 4 mg/dL (Negative); WBC Urine 55-80 /hpf (0-5); pH Urine 5 (5-7)
[2023-03-02] MEDS: cefTRIAXone 1,000 MG in sodium chloride 0.9% (plus) 50 ML 100 MG IV (07:43)
--- NOTE | 2023-03-02 08:39 | ECG_ITS ---
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 Measurements Intervals [place] Rate: 108 P: 0 SD: 0 QRS: 28 QRSD: 101 T: 51 QT: 381 QTc: 513 Interpretive Statements ATRIAL FIBRILLATION WITH RAPID VENTRICULAR RESPONSE WITH ABERRANT CONDUCTION OR VENTRICULAR PREMATURE COMPLEXES LOW QRS VOLTAGE IN PRECORDIAL LEADS [QRS DEFLECTION < 1.0 mV IN CHEST LEADS] ABNORMAL RHYTHM ECG Compared to ECG 03/02/2023 06:34:10 Ventricular premature complex(es) now present Aberrant conduction of supraventricular beat(s) now present ST (T wave) deviation no longer present Electronically Signed On 03-02-2023 13:40:40 CDT by Marian Tovar M.D. [id number]
[2023-03-02 08:58] LABS: Magnesium 1.2 mg/dL (1.7-2.3)
[2023-03-02 09:02] LABS: Alcohol Level < 10 mg/dL (0-10)
[2023-03-02 09:26] LABS: Lactic Sepsis W/Reflex 1.5 mmol/L (0.5-2.2)
[2023-03-02 09:33] LABS: Troponin 5 2HR 17.66 ng/L (0-15)
[2023-03-02 09:35] LABS: Troponin 5 2HR Delta -1.34 ABS# (0-10)
--- NOTE | 2023-03-02 09:50 | PM.HP ---
Providers/Chief Complaint Admitting Physician: Mejia Lawler MD Primary Care Provider: Mallika Ceja MD Chief Complaint: Bilateral leg weakness/ Urinary retention History of Present Illness Ethan Hardy is a 67 year old male presenting to the emergency department with increasing weakness, especially in his legs for the last 2 to 3 days. He reports his urinary stream has been poor. He has not had any chest pain or shortness of breath. He reports he feels like he did in the past when he had a UTI. He states he drinks too much alcohol, and tried to cut back or stop drinking on Sunday. He reports he has an occasional cough, which will generate a dry heave. No sputum productivity. No significant ill contacts. No abdominal pain or diarrhea. In the emergency department he was found to be in atrial fibrillation with rapid ventricular rate. He was given metoprolol IV and then p.o. He was also given a dose of ceftriaxone for UTI. Cultures were obtained. Review of Systems General: Reports: 10 or more systems reviewed and unremarkable except in HPI and below Card: Reports: lightheadedness; Denies: chest pain or palpitations Resp: Denies: dyspnea GI: Denies: abdominal pain, nausea, hematochezia or melena Medications/Allergies Home Medications Medication Instructions Recorded Confirmed Last Taken Type tamsulosin 0.4 mg capsule 0.4 mg PO BID 30 days #60 caps 08/17/22 03/02/23 03/01/23 Rx metoprolol tartrate 50 mg tablet 50 mg PO BIDWM #60 tabs 12/26/22 03/02/23 03/01/23 Rx multivitamin-ferrous 1 tab PO DAILY 03/02/23 03/02/23 03/01/23 History fumarate-folic acid 18 mg-400 mcg tablet (Centrum) Allergies Allergy/AdvReac Type Severity Reaction Status Date / Time No Known Allergies Allergy Verified 03/02/23 06:22 PFSH Acute PFSH: Medical History (Updated 03/02/23 @ 10:07 by Mejia Lawler MD) Abnormal nuclear stress test Acute blood loss anemia Acute kidney injury Alcohol abuse Alcoholism Anemia Atrial fibrillation Atrial fibrillation Atrial fibrillation and flutter B12 deficiency Basicervical fracture of neck of left femur Benign essential hypertension with target blood pressure below 140/90 BPH (benign prostatic hyperplasia) BPH loc w urin obs/LUTS BPH loc w urin obs/LUTS Cardiomyopathy Echocardiogram 1/23 EF 45%, global wall motion abnormality Carotid artery disease Right carotid is occluded Carotid artery stenosis without cerebral infarction Clostridium difficile diarrhea Community acquired pneumonia Dysuria Elevated digoxin level Elevated PSA High anion gap metabolic acidosis Hypertension Hypokalemia Hypomagnesemia Hypotension Hypotension Intermittent palpitations Intestinal malrotation Intractable nausea and vomiting Korsakoff syndrome Macrocytosis Metabolic encephalopathy Mixed hyperlipidemia Nausea vomiting and diarrhea Osteoarthritis of right knee Osteoarthritis of right knee Palpitations Premature ventricular contractions Proctocolitis Somnolence, daytime Systolic heart failure Thrombocytopenia Urinary hesitancy Urinary tract infection Wernicke encephalopathy syndrome Surgical History History of bariatric surgery Gastric sleeve ([place]) History of left knee surgery History of right hip replacement History of tonsillectomy and adenoidectomy History of ventral hernia repair x 2, supraumbilical, second time with mesh Knee joint replacement status S/P carotid endarterectomy Status post right knee replacement Family History Sister Clotting disorder Father , at age 92 CAD (coronary artery disease) Grandmother Dementia Mother , at age 78 Lung disease Hip fracture Social History Smoking and tobacco status: never smoked Alcohol intake: current Alcohol intake frequency: 3 or more drinks per day Alcohol type: hard liquor Counseling given: Yes Housing: House Marital status: Current occupational status: retired Vitals/I&O/Wt Last Vital Signs Temp 98.7 F 03/02/23 06:18 Pulse 103 H 03/02/23 09:30 Resp 24 H 03/02/23 09:30 BP 143/94 03/02/23 09:00 Pulse Ox 90 03/02/23 09:30 O2 Del Method Room Air 03/02/23 06:42 Weight last 48 hrs Weight 90.718 kg Physical Exam Narrative: General exam is a white male, no distress, atrial fibrillation on telemetry, conversant and slightly shaky HEENT: Atraumatic and normocephalic. Pupils equally round. Oropharynx is clear Neck is supple no lymphadenopathy thyromegaly Cardiovascular irregular, irregular with accelerated rate Lungs clear no wheezing or crackles Abdomen is soft nontender with positive bowel sounds. No obvious organomegaly exam is deferred Extremities no cyanosis clubbing or edema, cap refill brisk Skin no rash Neuro no obvious focal deficits Data 03/02/23 06:27 03/02/23 06:27 Other Labs: MCV is 109 LFTs are normal with exception of total bilirubin of 2.0. Magnesium is 1.2. Calcium 8.3, albumin 3.7 Troponin 19 with repeat of 18 Urinalysis with 55-80 white blood cells, 4+ bacteria, 5-10 squamous Alcohol level less than 10 I have ordered a chest x-ray Blood and urine cultures were drawn EKG initially demonstrated a rate of 127, atrial fibrillation with rapid ventricular rate, normal axis, nonspecific ST-T wave changes. Previous echocardiogram July 2022 demonstrated an EF of 45% Recent TSH was normal Micro: Microbiology 03/02/23 08:55 Blood Culture - Preliminary Blood SPECIMEN COLLECTED 03/02/23 08:53 Blood Culture - Preliminary Blood SPECIMEN COLLECTED A&P Assessment and plan (1) Atrial fibrillation with RVR: Given metoprolol in the ER Treat alcohol withdrawal, monitoring heart rate closely Continue patient's home metoprolol Admission to [facility] with telemetry May require Cardizem drip depending on clinical course/hear rate (2) High anion gap metabolic acidosis: Hydrate with IV fluids Reevaluation of anion gap tomorrow BMP tomorrow (3) Weakness: Involved physical therapy He believes he is weak enough he may require skilled placement Likely has neuropathy from longstanding alcoholism (4) Hypomagnesemia: Significantly low magnesium Supplement Repeat tomorrow (5) Alcoholism: Discussed need to stop alcohol completely CIWA protocol (6) Urinary tract infection: Continue Rocephin 1 g IV every 24 hours Continue Flomax Repeat BMP tomorrow Await urine culture Qualifiers: Hematuria presence: with hematuria Urinary tract infection type: acute cystitis Qualified Code(s): N30.01 - Acute cystitis with hematuria (7) Macrocytosis: Check B12 and folate level Initiate B12 and folate per CIWA protocol Repeat CBC tomorrow. Plan Cardiomyopathy with last EF in July of around 45%, global hypokinesis. 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 Did have a nuclear stress test in 2019 that had some mild abnormality. If develops symptoms concerning for angina, could consider repeating stress test or cardiology referral Other medical problems as outlined in past medical history Full code Lovenox for DVT prophylaxis Protonix for GI prophylaxis Attestations Medical Necessity Statement*: Will require greater than 2 midnight stay for evaluation and treatment of weakness, hypomagnesemia, A-fib with RVR Diagnoses Atrial fibrillation with RVR I48.91 High anion gap metabolic acidosis E87.29 Weakness R53.1 Hypomagnesemia E83.42 Alcoholism F10.20 Urinary tract infection N30.01 Hematuria presence: with hematuria Urinary tract infection type: acute cystitis Macrocytosis D75.89 Time Spent (min) 57
[2023-03-02] MEDS: magnesium sulfate premix 2 GM/50 ML PIGGYBACK IV (10:22)
[2023-03-02] MEDS: sodium chloride 0.9% 1,000 ML 100 ML IV ×2 (10:22→19:49)
[2023-03-02] MEDS: enoxaparin 40 mg/0.4 mL Syringe SUBCUT (10:27)
[2023-03-02 11:13] LABS: Vitamin B12 359 pg/mL (232-1245)
[2023-03-02 11:28] LABS: Folate Level > 20.0 ng/mL (4.5-32.2)
--- NOTE | 2023-03-02 12:34 | ECG_ITS ---
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 Measurements Intervals [place] Rate: 120 P: 0 [place]: 0 QRS: 44 QRSD: 110 T: 78 QT: 380 QTc: 539 Interpretive Statements ATRIAL FIBRILLATION WITH RAPID VENTRICULAR RESPONSE WITH ABERRANT CONDUCTION OR VENTRICULAR PREMATURE COMPLEXES LOW QRS VOLTAGE IN PRECORDIAL LEADS [QRS DEFLECTION < 1.0 mV IN CHEST LEADS] ABNORMAL RHYTHM ECG Compared to ECG 03/02/2023 08:39:44 No significant changes Electronically Signed On 03-02-2023 23:00:55 CDT by Marian Tovar M.D. [id number]
[2023-03-02] MEDS: LORazepam 2 mg/mL INJ 1 mL 1 MG IVP (13:39)
[2023-03-02 13:43] LABS: Troponin 5 6HR 17.59 ng/L (0-15)
[2023-03-02 13:44] LABS: Troponin 5 6HR Delta -1.41 ng/L (0-12)
[2023-03-02] MEDS: dilTIAZem 100 MG in sodium chloride 0.9% (add-van) 100 ML IV (14:52)
[2023-03-02] MEDS: tamsulosin 0.4 mg Capsule PO (17:47)
--- NOTE | 2023-03-02 17:55 | PC.NURSE ---
pt's bp on monitor 152/100.manual bp 152/92.cardizem started at 1450 at 5 mg.have titrated it up to 15 mg.
[2023-03-02] MEDS: metoprolol tartrate 25 mg Tablet PO (18:34)
[2023-03-02] MEDS: dilTIAZem 100 MG in sodium chloride 0.9% (add-van) 100 ML 15 MG IV (21:29)
[2023-03-02] MEDS: dilTIAZem 30 mg Tablet PO (22:56)
[2023-03-03] VITALS (106 sets, daily range): BP systolic 92–145; BP diastolic 65–107; PULSE 69–122; RESP 13–33; TEMP 36.7–36.8; O2SAT 75–97
[2023-03-03 03:29] LABS: Basophils % 0.3 %; Eosinophils % 0.7 %; Hematocrit 35.7 % (42.0-52.0); Hemoglobin 11.5 g/dL (11.7-16.6); Lymphocytes # 0.4 10^3/uL (0.8-4.8); Lymphocytes % 6.6 %; Mean Corpuscular HGB Conc 32.2 g/dL (30.0-36.0); Mean Corpuscular Hemoglobin 34.3 pg (28.0-34.0); Mean Corpuscular Volume 106.6 fl (80-94); Mean Platelet Volume 12.4 fL (7.4-10.4); Monocytes # 0.8 10^3/uL (0.2-0.9); Monocytes % 13.1 %; Neutrophils # 4.57 10^3/uL (1.8-7.7); Neutrophils % 78.8 %; Nucleated Red Blood Cells % 0 %; Platelet Count 74 10^3/cmm (130-400); Red Blood Count 3.35 10^6/uL (4.1-5.3); White Blood Count 5.8 10^3/uL (4.0-10.0)
[2023-03-03 03:45] LABS: Alanine Aminotransferase 15 U/L (0-41); Albumin Level 3.4 g/dL (3.5-5.2); Alkaline Phosphatase 76 U/L (40-130); Anion Gap 20.8 (5-19); Aspartate Amino Transferase 18 U/L (0-40); Blood Urea Nitrogen 10 mg/dL (8-23); Calcium 7.9 mg/dL (8.5-10.5); Carbon Dioxide 19 mmol/L (22-29); Chloride 103 mmol/L (98-107); Glomerular Filtration Rate 96.1 mL/min (90-130); Glucose 99 mg/dL (65-115); Magnesium 1.5 mg/dL (1.7-2.3); Osmolality Calculated 287 mOsm/kg (285-295); Potassium 3.8 mmol/L (3.5-5.1); Sodium 139 mmol/L (136-145); Total Bilirubin 1.5 mg/dL (0.15-1.2); Total Protein 5.4 g/dL (6.6-8.7)
[2023-03-03] MEDS: dilTIAZem 30 mg Tablet PO ×4 (03:52→22:44)
[2023-03-03] MEDS: sodium chloride 0.9% 1,000 ML 100 ML IV ×2 (05:10→07:40)
[2023-03-03] MEDS: cefTRIAXone 1,000 MG in sodium chloride 0.9% (plus) 50 ML 100 MG IV (07:28)
[2023-03-03] MEDS: metoprolol tartrate 50 mg Tablet 75 MG PO ×2 (07:33→17:40)
[2023-03-03] MEDS: pantoprazole DR 40 mg Tablet PO (08:57)
[2023-03-03] MEDS: tamsulosin 0.4 mg Capsule PO ×2 (08:57→17:40)
[2023-03-03] MEDS: thiamine 100 mg Tablet PO (08:57)
[2023-03-03] MEDS: folic acid 1 mg Tablet PO (08:58)
[2023-03-03] MEDS: multivitamin therapeutic Tablet 1 TAB PO (08:58)
[2023-03-03] MEDS: enoxaparin 40 mg/0.4 mL Syringe SUBCUT (10:46)
--- NOTE | 2023-03-03 14:36 | P.PN_ITS ---
Subjective Subjective: Hospital course, labs appreciated. On examination patient lying comfortably in bed. States feeling a lot better. Denies any nausea vomiting, headache, dizziness, jitteriness. Awake and alert. Sinus rhythm currently. Off Cardizem drip. Saturating well on room air. Blood work done today shows a stable CBC with a hemoglobin of 11.5, platelet of 74,000, CMP showing stable BUN/creatinine, bilirubin of 1.5, magnesium of 1.5. Vitals/I&O/Wt Last Vital Signs Temp 98.2 F 03/03/23 08:45 Pulse 75 03/03/23 12:00 Resp 23 H 03/03/23 12:00 BP 92/65 03/03/23 12:00 Pulse Ox 96 03/03/23 12:00 O2 Del Method Room Air 03/03/23 08:20 03/02/23 03/03/23 03/03/23 22:59 06:59 14:59 Intake Total 3157.334 / 3397.334 1210.750 / 4608.084 678.25 / 678.25 Output Total 350 / 350 0 / 350 Balance 2807.334 / 3047.334 1210.750 / 4258.084 678.25 / 678.25 Weight last 48 hrs Weight 89.556 kg Weight 90.718 kg Physical Exam Narrative: General exam is a white male, no distress, AO x3 HEENT: Atraumatic and normocephalic. Pupils equally round. Oropharynx is clear Neck is supple no lymphadenopathy thyromegaly Cardiovascular irregular, irregular with accelerated rate Lungs clear no wheezing or crackles Abdomen is soft nontender with positive bowel sounds. No obvious organomegaly exam is deferred Extremities no cyanosis clubbing or edema, cap refill brisk Skin no rash Neuro no obvious focal deficits Data 03/03/23 02:19 03/03/23 02:19 Micro: Microbiology 03/02/23 06:49 Urine Culture - Preliminary Urine,Clean Catch Strep species, gamma-hemolytic 03/02/23 08:55 Blood Culture - Preliminary Blood NEGATIVE TO DATE 03/02/23 08:53 Blood Culture - Preliminary Blood NEGATIVE TO DATE A&P Assessment and plan (1) Atrial fibrillation with RVR: Off Cardizem drip. Continue with metoprolol 75 mg twice daily. Cardizem 30 mg every 8 hourly. Currently in normal sinus rhythm. Echocardiogram from July 2022 shows an EF of 45%, diffuse hypokinesia of left ventricle, PASP of 18 mmHg. We will hold off on any further echocardiogram for now. Not on anticoagulation as patient is at high risk of bleeding and history of GI bleed. (2) High anion gap metabolic acidosis: Resolved. Most likely in setting of dehydration on admission. Continue to monitor BMP daily for now. (3) Weakness: Continue with PT. Appreciate evaluation. Possible discharge to SNF. Case management working on the same. (4) Hypomagnesemia: Improved to 1.5. Replete 2 g IV. Repeat magnesium levels in AM. (5) Alcoholism: Discussed need to stop alcohol completely. Last consumption as per patient on Sunday. Today is Sunday. [facility] protocol as needed. (6) Urinary tract infection: History of UTI with Enterobacter sensitive to Rocephin. Continue Rocephin 1 g IV every 24 hours Continue Flomax Repeat BMP tomorrow Await final urine culture. Qualifiers: Hematuria presence: with hematuria Urinary tract infection type: acute cystitis Qualified Code(s): N30.01 - Acute cystitis with hematuria (7) Macrocytosis: Most likely in setting of chronic alcohol abuse. Appreciate B12 and folate level. Will check methylmalonic acid levels Plan Cardiomyopathy: With concerns for nonischemic cardiomyopathy. Last EF in July of around 45%, global hypokinesis. 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 Did have a nuclear stress test in 2018 that had some mild abnormality. If develops symptoms concerning for angina, could consider repeating stress test or cardiology referral Other medical problems as outlined in past medical history Discharge plan: Patient weaker than before. Appreciate PT evaluation. Plan to discharge to SNF. Case management alerted. Full code Lovenox for DVT prophylaxis Protonix for GI prophylaxis Attestations Medical Necessity Statement*: Requires further hospitalization for management of atrial fibrillation with rapid ventricular response, acute on chronic weakness, hypomagnesemia in a patient with history of alcohol abuse requiring SNF placement Diagnoses Atrial fibrillation with RVR I48.91 High anion gap metabolic acidosis E87.29 Weakness R53.1 Hypomagnesemia E83.42 Alcoholism F10.20 Urinary tract infection N30.01 Hematuria presence: with hematuria Urinary tract infection type: acute cystitis Macrocytosis D75.89
[2023-03-03] MEDS: sodium chloride 0.9% 1,000 ML 50 ML IV (22:44)
[2023-03-04] VITALS (58 sets, daily range): BP systolic 104–150; BP diastolic 61–100; PULSE 66–142; RESP 16–33; TEMP 36.3–36.7; O2SAT 91–97
[2023-03-04] MEDS: dilTIAZem 30 mg Tablet PO ×4 (04:11→23:37)
[2023-03-04 04:42] LABS: Basophils % 0.5 %; Eosinophils # 0.1 10^3/uL (0.0-0.8); Eosinophils % 2.9 %; Hematocrit 36.3 % (42.0-52.0); Hemoglobin 11.7 g/dL (11.7-16.6); Lymphocytes # 0.6 10^3/uL (0.8-4.8); Lymphocytes % 13.8 %; Mean Corpuscular HGB Conc 32.2 g/dL (30.0-36.0); Mean Corpuscular Hemoglobin 35.2 pg (28.0-34.0); Mean Corpuscular Volume 109.3 fl (80-94); Mean Platelet Volume 11.9 fL (7.4-10.4); Monocytes # 0.6 10^3/uL (0.2-0.9); Monocytes % 14.5 %; Neutrophils # 2.99 10^3/uL (1.8-7.7); Neutrophils % 67.6 %; Nucleated Red Blood Cells % 0 %; Platelet Count 63 10^3/cmm (130-400); Red Blood Count 3.32 10^6/uL (4.1-5.3); Red Cell Distribution Width 15.8 % (12.1-15.1); White Blood Count 4.4 10^3/uL (4.0-10.0)
[2023-03-04 04:59] LABS: Alanine Aminotransferase 14 U/L (0-41); Albumin Level 3.4 g/dL (3.5-5.2); Alkaline Phosphatase 76 U/L (40-130); Anion Gap 20.7 (5-19); Aspartate Amino Transferase 17 U/L (0-40); Blood Urea Nitrogen 10 mg/dL (8-23); Calcium 7.9 mg/dL (8.5-10.5); Carbon Dioxide 17 mmol/L (22-29); Chloride 102 mmol/L (98-107); Glomerular Filtration Rate 96.1 mL/min (90-130); Glucose 83 mg/dL (65-115); Osmolality Calculated 280 mOsm/kg (285-295); Potassium 3.7 mmol/L (3.5-5.1); Sodium 136 mmol/L (136-145); Total Bilirubin 1.2 mg/dL (0.15-1.2); Total Protein 5.4 g/dL (6.6-8.7)
[2023-03-04] MEDS: cefTRIAXone 1,000 MG in sodium chloride 0.9% (plus) 50 ML 100 MG IV (08:01)
[2023-03-04] MEDS: tamsulosin 0.4 mg Capsule PO ×2 (08:03→17:16)
[2023-03-04] MEDS: metoprolol tartrate 50 mg Tablet 75 MG PO ×2 (08:03→17:16)
[2023-03-04] MEDS: pantoprazole DR 40 mg Tablet PO (08:03)
[2023-03-04] MEDS: multivitamin therapeutic Tablet 1 TAB PO (08:04)
[2023-03-04] MEDS: thiamine 100 mg Tablet PO (08:06)
[2023-03-04] MEDS: enoxaparin 40 mg/0.4 mL Syringe SUBCUT (10:37)
[2023-03-04] MEDS: finasteride 5 mg Tablet PO (10:37)
--- NOTE | 2023-03-04 12:26 | PM.PN ---
Subjective Subjective: No acute events overnight. Patient lying comfortably in bed. States she is feeling a lot better. Denies any nausea, vomiting, headache. Haq removed yesterday. Patient had urinary retention and bladder scan showing more than 30 cc after which straight cath was done. Since then patient has urinated 1 time to 120 cc. Bladder scan again repeated earlier today morning show 115 cc. Patient complaining of mild dysuria. Labs appreciated. Vitals/I&O/Wt Last Vital Signs Temp 97.7 F 03/04/23 08:00 Pulse 92 03/04/23 11:00 Resp 28 H 03/04/23 11:00 BP 127/95 03/04/23 11:00 Pulse Ox 96 03/04/23 11:00 O2 Del Method Nasal Cannula 03/04/23 08:00 03/03/23 03/04/23 03/04/23 22:59 06:59 14:59 Intake Total 1836 / 2514.25 760 / 3274.25 901.667 / 901.667 Output Total 260 / 260 0 / 260 120 / 120 Balance 1576 / 2254.25 760 / 3014.25 781.667 / 781.667 Physical Exam Narrative: General exam is a white male, no distress, AO x3 HEENT: Atraumatic and normocephalic. Pupils equally round. Oropharynx is clear Neck is supple no lymphadenopathy thyromegaly Cardiovascular irregular, irregular with accelerated rate Lungs clear no wheezing or crackles Abdomen is soft nontender with positive bowel sounds. No obvious organomegaly exam is deferred Extremities no cyanosis clubbing or edema, cap refill brisk Skin no rash Neuro no obvious focal deficits Data 03/04/23 04:17 03/04/23 04:17 Micro: Microbiology 03/02/23 06:49 Urine Culture - Preliminary Urine,Clean Catch Strep species, gamma-hemolytic 03/02/23 08:55 Blood Culture - Preliminary Blood NEGATIVE TO DATE 03/02/23 08:53 Blood Culture - Preliminary Blood NEGATIVE TO DATE A&P Assessment and plan (1) Atrial fibrillation with RVR: Off Cardizem drip. Continue with metoprolol 75 mg twice daily. Cardizem 30 mg every 6 hourly. We will plan to consolidate Cardizem in the next 24 hours. Rate controlled currently. Echocardiogram from July 2022 shows an EF of 45%, diffuse hypokinesia of left ventricle, PASP of 18 mmHg. We will hold off on any further echocardiogram for now. Not on anticoagulation as patient is at high risk of bleeding and history of GI bleed. (2) Urinary tract infection: History of UTI with Enterobacter sensitive to Rocephin. Continue Rocephin 1 g IV every 24 hours Continue Flomax Urine cultures growing group B hemolytic strep. Qualifiers: Hematuria presence: with hematuria Urinary tract infection type: acute cystitis Qualified Code(s): N30.01 - Acute cystitis with hematuria (3) Weakness: Continue with PT. Appreciate evaluation. Possible discharge to SNF. Case management working on the same. (4) Urinary retention: Continue with Flomax as above. Bladder scan as needed. Add finasteride 5 mg oral daily. If patient needs multiple straight catheterization we will plan for Haq catheter placement. (5) Hypomagnesemia: Repeat magnesium level in AM. (6) Alcoholism: Discussed need to stop alcohol completely. Last consumption as per patient on Sunday. Today is Sunday. CIWA protocol as needed. (7) Macrocytosis: Most likely in setting of chronic alcohol abuse. Appreciate B12 and folate level. Will check methylmalonic acid levels (8) High anion gap metabolic acidosis: Resolved. Most likely in setting of dehydration on admission. Continue to monitor BMP daily for now. Plan Cardiomyopathy: With concerns for nonischemic cardiomyopathy. Last EF in July of around 45%, global hypokinesis. 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 Did have a nuclear stress test in 2019 that had some mild abnormality. If develops symptoms concerning for angina, could consider repeating stress test or cardiology referral Other medical problems as outlined in past medical history Discharge plan: Patient weaker than before. Appreciate PT evaluation. Plan to discharge to SNF. Case management alerted. Full code Lovenox for DVT prophylaxis Protonix for GI prophylaxis Attestations Medical Necessity Statement*: Requires further hospitalization for management of weakness, physical deconditioning in a patient with chronic alcohol abuse, electrolyte abnormality, atrial fibrillation while safe discharge planning is sought. Diagnoses Atrial fibrillation with RVR I48.91 Urinary tract infection N30.01 Hematuria presence: with hematuria Urinary tract infection type: acute cystitis Weakness R53.1 Urinary retention R33.9 Hypomagnesemia E83.42 Alcoholism F10.20 Macrocytosis D75.89 High anion gap metabolic acidosis E87.29
--- NOTE | 2023-03-04 15:07 | PC.NURSE ---
Nurse walked in to patient's room to bladder scan him and noticed patient peeing in the sink. When asked why he wasn't using to toilet he said it's weird because it connects to the other room . Asked patient to please use toilet and lock the door to the other room. Patient also then pointed to the mirror and said that's the man that is always on tv lying prone in his yard .
[2023-03-04] MEDS: linezolid 600 mg Tablet PO (18:00)
[2023-03-05] VITALS (9 sets, daily range): BP systolic 103–141; BP diastolic 75–104; PULSE 68–84; RESP 16–22; TEMP 36.6–36.7; O2SAT 95–98
[2023-03-05 03:36] LABS: Basophils % 0.5 %; Eosinophils # 0.2 10^3/uL (0.0-0.8); Eosinophils % 4.1 %; Hematocrit 35.8 % (42.0-52.0); Hemoglobin 11.5 g/dL (11.7-16.6); Lymphocytes # 0.5 10^3/uL (0.8-4.8); Lymphocytes % 13.2 %; Mean Corpuscular HGB Conc 32.1 g/dL (30.0-36.0); Mean Corpuscular Hemoglobin 35.3 pg (28.0-34.0); Mean Corpuscular Volume 109.8 fl (80-94); Mean Platelet Volume 12.5 fL (7.4-10.4); Monocytes # 0.5 10^3/uL (0.2-0.9); Neutrophils # 2.65 10^3/uL (1.8-7.7); Neutrophils % 68.7 %; Nucleated Red Blood Cells % 0 %; Platelet Count 69 10^3/cmm (130-400); Red Blood Count 3.26 10^6/uL (4.1-5.3); Red Cell Distribution Width 15.5 % (12.1-15.1); White Blood Count 3.9 10^3/uL (4.0-10.0)
[2023-03-05 03:59] LABS: Alanine Aminotransferase 6 U/L (0-41); Albumin Level 3.2 g/dL (3.5-5.2); Alkaline Phosphatase 73 U/L (40-130); Blood Urea Nitrogen 15 mg/dL (8-23); Calcium 7.9 mg/dL (8.5-10.5); Carbon Dioxide 17 mmol/L (22-29); Chloride 101 mmol/L (98-107); Globulin 1.7 g/dL (1.3-4.6); Glomerular Filtration Rate 96.1 mL/min (90-130); Glucose 80 mg/dL (65-115); Magnesium 1.5 mg/dL (1.7-2.3); Osmolality Calculated 278 mOsm/kg (285-295); Sodium 134 mmol/L (136-145); Total Bilirubin 0.9 mg/dL (0.15-1.2); Total Protein 4.9 g/dL (6.6-8.7)
[2023-03-05 04:08] LABS: Anion Gap 19.8 (5-19); Potassium 3.8 mmol/L (3.5-5.1)
[2023-03-05 04:27] LABS: Aspartate Amino Transferase 16 U/L (0-40)
[2023-03-05] MEDS: linezolid 600 mg Tablet PO ×2 (05:25→17:07)
[2023-03-05] MEDS: dilTIAZem 30 mg Tablet PO ×3 (05:25→17:07)
[2023-03-05] MEDS: tamsulosin 0.4 mg Capsule PO ×2 (08:17→17:07)
[2023-03-05] MEDS: multivitamin therapeutic Tablet 1 TAB PO (08:17)
[2023-03-05] MEDS: pantoprazole DR 40 mg Tablet PO (08:17)
[2023-03-05] MEDS: finasteride 5 mg Tablet PO (08:17)
[2023-03-05] MEDS: metoprolol tartrate 50 mg Tablet 75 MG PO ×2 (08:17→17:07)
[2023-03-05] MEDS: thiamine 100 mg Tablet PO (08:18)
[2023-03-05] MEDS: enoxaparin 40 mg/0.4 mL Syringe SUBCUT (10:57)
--- NOTE | 2023-03-05 13:59 | P.PN_ITS ---
Subjective Subjective: No acute events overnight. Patient has been medically stable and afebrile. Heart rate well controlled. Patient states he is feeling a lot better. Denies any nausea, vomiting, headache. Saturating well on room air. Blood work shows a stable hemoglobin 11.5, white count of 3.9 down from 4.4 ye sterday, stable CMP. Magnesium is 1.5. Vitals/I&O/Wt Last Vital Signs Temp 98.1 F 03/05/23 08:00 Pulse 81 03/05/23 12:00 Resp 22 H 03/05/23 12:00 BP 108/83 03/05/23 12:00 Pulse Ox 97 03/05/23 12:00 O2 Del Method Room Air 03/05/23 12:00 03/04/23 03/05/23 03/05/23 22:59 06:59 14:59 Intake Total 240 / 1501.667 960 / 960 Output Total 530 / 650 175 / 825 350 / 350 Balance -530 / 611.667 65 / 676.667 610 / 610 Physical Exam Narrative: General exam is a white male, no distress, AO x3 HEENT: Atraumatic and normocephalic. Pupils equally round. Oropharynx is clear Neck is supple no lymphadenopathy thyromegaly Cardiovascular irregular, irregular with accelerated rate Lungs clear no wheezing or crackles Abdomen is soft nontender with positive bowel sounds. No obvious organomegaly exam is deferred Extremities no cyanosis clubbing or edema, cap refill brisk Skin no rash Neuro no obvious focal deficits Data 03/05/23 03:15 03/05/23 03:15 Micro: Microbiology 03/02/23 06:49 Urine Culture - Final Urine,Clean Catch Enterococcus faecalis A&P Assessment and plan (1) Atrial fibrillation with RVR: Rate controlled. Continue with metoprolol 75 mg twice daily. Cardizem 30 mg every 6 hourly. We will plan to consolidate Cardizem in the next 24 hours. Echocardiogram from July 2022 shows an EF of 45%, diffuse hypokinesia of left ventricle, PASP of 18 mmHg. We will hold off on any further echocardiogram for now. Not on anticoagulation as patient is at high risk of bleeding and history of GI bleed. (2) Urinary tract infection: Urine culture today growing Enterococcus faecalis sensitive to linezolid. Switch from ceftriaxone to linezolid to finish a 5-day course. Continue Flomax. Qualifiers: Hematuria presence: with hematuria Urinary tract infection type: acute cystitis Qualified Code(s): N30.01 - Acute cystitis with hematuria (3) Weakness: Continue with PT. Appreciate evaluation. Possible discharge to SNF. Case management working on the same. (4) Urinary retention: Catheter has been removed. Passing urine. Continue with Flomax 0.4 twice daily, finasteride 5 mg oral daily.. Bladder scan as needed. If patient needs multiple straight catheterization we will plan for Haq catheter placement. (5) Hypomagnesemia: Repeat magnesium level in AM. (6) Alcoholism: Discussed need to stop alcohol completely. Last consumption as per patient on Sunday. Today is Sunday. CIWA protocol as needed. (7) Macrocytosis: Most likely in setting of chronic alcohol abuse. Appreciate B12 and folate level. Will check methylmalonic acid levels (8) High anion gap metabolic acidosis: Resolved. Most likely in setting of dehydration on admission. Continue to monitor BMP daily for now. Plan Cardiomyopathy: With concerns for nonischemic cardiomyopathy. Last EF in July of around 45%, global hypokinesis. 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 Did have a nuclear stress test in 2019 that had some mild abnormality. If develops symptoms concerning for angina, could consider repeating stress test or cardiology referral Other medical problems as outlined in past medical history Discharge plan: Patient weaker than before. Appreciate PT evaluation. Plan to discharge to SNF. Case management alerted. Lab holiday tomorrow. Full code Lovenox for DVT prophylaxis Protonix for GI prophylaxis Attestations Medical Necessity Statement*: Requires further hospitalization for management of atrial fibrillation with rapid ventricular response in a patient with history of chronic alcoholism while safe discharge planning is sought. Diagnoses Atrial fibrillation with RVR I48.91 Urinary tract infection N30.01 Hematuria presence: with hematuria Urinary tract infection type: acute cystitis Weakness R53.1 Urinary retention R33.9 Hypomagnesemia E83.42 Alcoholism F10.20 Macrocytosis D75.89 High anion gap metabolic acidosis E87.29
--- NOTE | 2023-03-05 16:29 | PC.NURSE ---
Patient has been requesting to have his cardiac monitoring removed all day. I have been able to replace it each time upon going into his room. Nurse enters room at 1615 and patient has cardiac telemetry off and is refusing to wear it any longer saying I have been here for 5 days and you have enough data. Dr. Cook is notified. Doctor discontinued cardiac telemetry.
[2023-03-06] MEDS: dilTIAZem 30 mg Tablet PO ×3 (00:30→10:41)
[2023-03-06 03:44] VITALS: BP 131/89; PULSE 82; RESP 18; TEMP 36.5; O2SAT 96
[2023-03-06] MEDS: linezolid 600 mg Tablet PO (05:23)
[2023-03-06 08:00] VITALS: BP 113/73; PULSE 74; RESP 17; TEMP 36.6; O2SAT 94
[2023-03-06] MEDS: finasteride 5 mg Tablet PO (08:45)
[2023-03-06] MEDS: pantoprazole DR 40 mg Tablet PO (08:45)
[2023-03-06] MEDS: tamsulosin 0.4 mg Capsule PO (08:45)
[2023-03-06] MEDS: multivitamin therapeutic Tablet 1 TAB PO (08:46)
[2023-03-06] MEDS: metoprolol tartrate 50 mg Tablet 75 MG PO (08:46)
[2023-03-06] MEDS: thiamine 100 mg Tablet PO (08:46)
[2023-03-06] MEDS: enoxaparin 40 mg/0.4 mL Syringe SUBCUT (10:41)
[2023-03-06 11:19] VITALS: BP 100/71; PULSE 60; RESP 17; O2SAT 97
--- NOTE | 2023-03-06 12:44 | PM.DCS ---
Discharge Providers Date of Admission: 03/02/23 08:53 Date of Discharge: March 06, 2023 Attending Provider at Admission: Mejia Lawler MD Attending Provider at Discharge: Ferdinand Cook MD Primary Care Provider: Mallika Ceja MD Diagnoses at Discharge Discharge Diagnosis (1) Atrial fibrillation with RVR: Status: Resolved (2) Urinary tract infection: Status: Acute Qualifiers: Hematuria presence: with hematuria Urinary tract infection type: acute cystitis Qualified Code(s): N30.01 - Acute cystitis with hematuria (3) Weakness: Status: Acute (4) Urinary retention: Status: Acute (5) Hypomagnesemia: Status: Acute (6) Alcoholism: Status: Acute (7) Macrocytosis: Status: Acute (8) High anion gap metabolic acidosis: Status: Acute Reason for Visit Reason for Visit: Bilateral leg weakness/ Urinary retention Brief History: History as per HPI: Ethan Hardy is a 67 year old male presenting to the emergency department with increasing weakness, especially in his legs for the last 2 to 3 days.? He reports his urinary stream has been poor.? He has not had any chest pain or shortness of breath.? He reports he feels like he did in the past when he had a UTI.? He states he drinks too much alcohol, and tried to cut back or stop drinking on Sunday.? He reports he has an occasional cough, which will generate a dry heave.? No sputum productivity.? No significant ill contacts.? No abdominal pain or diarrhea. In the emergency department he was found to be in atrial fibrillation with rapid ventricular rate.? He was given metoprolol IV and then p.o.? He was also given a dose of ceftriaxone for UTI.? Cultures were obtained. Hospital Course Hospital Course Patient was admitted to the hospital further evaluation and management of atrial fibrillation with rapid ventricular response, weakness and chronic alcoholism. He was started on IV Cardizem which was later transitioned to oral metoprolol and oral Cardizem. He tolerated the medication well and heart rate has been stable for the last 72 hours. During hospitalization he was found to have a UTI. Urine culture grew Enterococcus. Antibiotics were changed as per culture sensitivities. Patient had urinary retention for which Haq was placed and gradually removed. Post Haq removal voiding trials were done after starting of Flomax and finasteride. Patient tolerated the voiding trial well. Patient was found to be significantly deconditioned for which discharge plan was discussed in detail. Patient is agreeable to transfer to SNF. His hospitalization was otherwise unremarkable. He has been discharged in hemodynamically stable condition on oral metoprolol 25 mg twice daily, Cardizem 120 mg oral daily. He is to take linezolid 600 mg twice daily for next 5 days. Physical Exam Narrative: General exam is a white male, no distress, AO x3 HEENT: Atraumatic and normocephalic. Pupils equally round. Oropharynx is clear Neck is supple no lymphadenopathy thyromegaly Cardiovascular irregular, irregular with accelerated rate Lungs clear no wheezing or crackles Abdomen is soft nontender with positive bowel sounds. No obvious organomegaly exam is deferred Extremities no cyanosis clubbing or edema, cap refill brisk Skin no rash Neuro no obvious focal deficits Discharge Data Studies Completed and Pending Pending at discharge Category Date Time Status Blood Culture Stat Lab 03/02/23 08:55 Results Methylmalonic Acid Routine Lab 03/03/23 06:27 Received SARS Covid-2 Antigen Routine Lab 03/06/23 12:19 Uncollected Microbiology 03/02/23 06:49 Urine,Clean Catch Urine Culture - Final Enterococcus faecalis 03/02/23 08:55 Blood Blood Culture - Preliminary NEGATIVE TO DATE 03/02/23 08:53 Blood Blood Culture - Preliminary NEGATIVE TO DATE Laboratory Results WBC 3.9 10^3/uL (4.0-10.0) L 03/05/23 03:15 RBC 3.26 10^6/uL (4.1-5.3) L 03/05/23 03:15 Hgb 11.5 g/dL (11.7-16.6) L 03/05/23 03:15 Hct 35.8 % (42.0-52.0) L 03/05/23 03:15 MCV 109.8 fl (80-94) H 03/05/23 03:15 MCH 35.3 pg (28.0-34.0) H 03/05/23 03:15 MCHC 32.1 g/dL (30.0-36.0) 03/05/23 03:15 RDW 15.5 % (12.1-15.1) H 03/05/23 03:15 Plt Count 69 10^3/cmm (130-400) L 03/05/23 03:15 MPV 12.5 fL (7.4-10.4) H 03/05/23 03:15 Neut % (Auto) 68.7 % 03/05/23 03:15 Lymph % (Auto) 13.2 % 03/05/23 03:15 [place] % (Auto) 13.0 % 03/05/23 03:15 Eos % (Auto) 4.1 % 03/05/23 03:15 Baso % (Auto) 0.5 % 03/05/23 03:15 Neut # (Auto) 2.65 10^3/uL (1.8-7.7) 03/05/23 03:15 Lymph # (Auto) 0.5 10^3/uL (0.8-4.8) L 03/05/23 03:15 [place] # (Auto) 0.5 10^3/uL (0.2-0.9) 03/05/23 03:15 Eos # (Auto) 0.2 10^3/uL (0.0-0.8) 03/05/23 03:15 Baso # (Auto) 0.0 10^3/uL (0.0-0.1) 03/05/23 03:15 Nucleated RBC % (auto) 0 % 03/05/23 03:15 Nucleated RBCs # 0.0 /100WBC 03/05/23 03:15 Sodium 134 mmol/L (136-145) L 03/05/23 03:15 Potassium 3.8 mmol/L (3.5-5.1) 03/05/23 03:15 Chloride 101 mmol/L (98-107) 03/05/23 03:15 Carbon Dioxide 17 mmol/L (22-29) L 03/05/23 03:15 Anion Gap 19.8 (5-19) H 03/05/23 03:15 BUN 15 mg/dL (8-23) 03/05/23 03:15 Creatinine 0.8 mg/dL (0.7-1.2) 03/05/23 03:15 GFR Calculation 96.1 mL/min (90-130) 03/05/23 03:15 Glucose 80 mg/dL (65-115) 03/05/23 03:15 Calculated Osmolality 278 mOsm/kg (285-295) L 03/05/23 03:15 Lactic Acid 1.5 mmol/L (0.5-2.2) 03/02/23 08:53 Calcium 7.9 mg/dL (8.5-10.5) L 03/05/23 03:15 Magnesium 1.5 mg/dL (1.7-2.3) L 03/05/23 03:15 Total Bilirubin 0.9 mg/dL (0.15-1.2) 03/05/23 03:15 AST 16 U/L (0-40) 03/05/23 03:15 ALT 6 U/L (0-41) 03/05/23 03:15 Alkaline Phosphatase 73 U/L (40-130) 03/05/23 03:15 Troponin T Baseline 19 ng/L (0-15) H 03/02/23 06:27 Troponin T 120 Minute 17.66 ng/L (0-15) H 03/02/23 08:53 Delta Troponin T -1.34 ABS# (0-10) L 03/02/23 08:53 Troponin T Hi Sens 6Hr 17.59 ng/L (0-15) H 03/02/23 13:00 Troponin T Hi Sens 6Hr Delta -1.41 ng/L (0-12) L 03/02/23 13:00 Total Protein 4.9 g/dL (6.6-8.7) L 03/05/23 03:15 Albumin 3.2 g/dL (3.5-5.2) L 03/05/23 03:15 Globulin 1.7 g/dL (1.3-4.6) 03/05/23 03:15 Vitamin B12 359 pg/mL (232-1245) 03/02/23 06:27 Folate > 20.0 ng/mL (4.5-32.2) 03/02/23 06:27 Urine Color Yellow (Yellow) 03/02/23 06:49 Urine Appearance Cloudy (CLEAR) A 03/02/23 06:49 Urine pH 5 (5-7) 03/02/23 06:49 Ur Specific [place] 1.020 (1.005-1.030) 03/02/23 06:49 Urine Protein 1+ (Negative) H 03/02/23 06:49 Urine Glucose (UA) Norm (Normal) 03/02/23 06:49 Urine Ketones 2+ (Negative) H 03/02/23 06:49 Urine Blood 2+ (Negative) H 03/02/23 06:49 Urine Nitrate Negative (Negative) 03/02/23 06:49 Urine Bilirubin 1+ (Negative) H 03/02/23 06:49 Urine Urobilinogen 4 mg/dL (Negative) H 03/02/23 06:49 Ur Leukocyte Esterase 2+ (Negative) H 03/02/23 06:49 Urine RBC 0-4 /hpf (0-2) H 03/02/23 06:49 Urine WBC 55-80 /hpf (0-5) H 03/02/23 06:49 Ur Squamous Epith Cells 5-10 /hpf (0-5) H 03/02/23 06:49 Amorphous Sediment Not Reportable 03/02/23 06:49 Urine Bacteria 4+ /hpf (NONE) H 03/02/23 06:49 Ethyl Alcohol < 10 mg/dL (0-10) 03/02/23 06:27 Vitals Last Vital Signs Temp 97.8 F 03/06/23 08:00 Pulse 60 03/06/23 11:19 Resp 17 03/06/23 11:19 BP 100/71 03/06/23 11:19 Pulse Ox 97 03/06/23 11:19 O2 Del Method Room Air 03/06/23 11:19 Discharge Plan Discharge Patient Disposition: Home Condition: Stable Prescriptions: New linezolid 600 mg Tablet 600 mg PO Q12H Qty: 10 0RF pantoprazole 40 mg Tablet,Delayed Release (Dr/Ec) 40 mg PO DAILY Qty: 30 0RF finasteride 5 mg Tablet 5 mg PO DAILY Qty: 30 0RF Vitamin B-1 (mononitrate) 100 mg Tablet 100 mg PO DAILY Qty: 30 0RF Cardizem CD 120 mg capsule,extended release 24hr 120 mg PO DAILY Qty: 30 0RF Continued tamsulosin 0.4 mg Capsule 0.4 mg PO BID 30 Days Qty: 60 3RF Centrum 18-400 mg-mcg Tablet 1 tab PO DAILY Changed metoprolol tartrate 50 mg tablet 75 mg PO BIDWM Qty: 60 3RF Discharge Orders: Discharge Order (Routine); Ordered 03/06/23 Ordered By: Ferdinand Cook Referrals: Mallika Ceja MD [Primary Care Provider] - 03/08/23 9:10 am Patient Instructions: Alcohol Withdrawal, Diltiazem (By mouth) (Cardizem, Cardizem CD, Cardizem LA, Cardizem SR), Thiamine (By mouth), Finasteride (By mouth) (Propecia, Proscar), Pantoprazole (By mouth) (Protonix), Linezolid (By mouth) (Zyvox), Urinary Tract Infection in Men (DC), Opioid Safety, Urinary Retention Activity Restrictions/Additional Instructions: Take linezolid 600 mg twice daily for next 5 days. This is the antibiotic for your urinary infection. Metoprolol has been increased to 75 mg twice daily. Continue with Cardizem 120 mg daily. Discharge Attestations Time Spent in Discharge Care*: greater than 30 min Specific Discharge Activities: educating patient, discussing with pcp/other providers, discussing with casey saw operator/social workers/dc planners, documenting/other paperwork and evaluating patient/reviewing data Status at Discharge: Cognitive status at discharge: cognitively intact, Behavioral status at discharge: cooperative, Functional status at discharge: uses cane/walker, Overall status at discharge: patient is progressing back to baseline Quality Metrics Clinical Quality Measures [ No reported AMI, CVA or VTE this stay] Coding Level of Care Code 28348 Total time (in minutes) for Discharge: 50 Diagnoses Atrial fibrillation with RVR I48.91 Urinary tract infection N30.01 Hematuria presence: with hematuria Urinary tract infection type: acute cystitis Weakness R53.1 Urinary retention R33.9 Hypomagnesemia E83.42 Alcoholism F10.20 Macrocytosis D75.89 High anion gap metabolic acidosis E87.29
[2023-03-06 13:30] LABS: SARS Covid-2 Antigen negative (Negative)
--- NOTE | 2023-03-06 14:24 | PC.NURSE ---
Report called to [facility] MARCUS and given to WADE Way
[2023-03-06 14:25] VITALS: BP 100/71; PULSE 60; RESP 17; O2SAT 97
--- NOTE | 2023-03-06 15:25 | PC.NURSE ---
Discharge Note [facility] [[facility] bus] accompanied by [facility personnel]. Discharge instructions reviewed with patient and/or sales representative printing. Mobile pharmacy medications and/or prescriptions provided. Belongings/home medications returned.
[2023-03-08 00:35] LABS: Methylmalonic Acid 71 nmol/L (87-318)
== END 2023-03-06 15:05 | disposition skilled nursing facility (03) | DRG 309 ==
LOC: ER 09:08 → CSU 09:40
PROVIDERS: Admitting Provider Internal Medicine; Emergency Provider Family Medicine; PCP Family Medicine; Visit Provider Student in an Organized Health Care Education/Training Program
DX: I48.91 Unspecified atrial fibrillation (principal); E51.2 Wernicke's encephalopathy; E87.20 Acidosis, unspecified; N30.01 Acute cystitis with hematuria; B95.2 Enterococcus as the cause of diseases classified elsewhere; N40.1 Benign prostatic hyperplasia with lower urinary tract symptoms; R33.8 Other retention of urine; R39.11 Hesitancy of micturition; E83.42 Hypomagnesemia; F10.20 Alcohol dependence, uncomplicated; D75.89 Other specified diseases of blood and blood-forming organs; I42.6 Alcoholic cardiomyopathy; I10 Essential (primary) hypertension; E78.2 Mixed hyperlipidemia; Z98.84 Bariatric surgery status; Z96.641 Presence of right artificial hip joint; Z96.651 Presence of right artificial knee joint
CPT/HCPCS: 36415; 51702; 51798; 80053; 80307; 81001; 81015; 82607; 82746; 83605; 83735; 83921; 84484; 85025; 87040; 87077; 87086; 87186; 87426; 93005; 96365; 96372; 96375; 96376; 97110; 97116; 97161; 99285; J0696; J1650; J2060; J3411; J3475; J3490; J7030

== ENCOUNTER 2023-09-02 07:14 | Emergency (ER) | payer MEDICARE, SELFPAY ==
[2023-09-02 07:15] VITALS: BP 121/90; PULSE 123; RESP 16; TEMP 37.1; O2SAT 98
--- NOTE | 2023-09-02 07:16 | XRR_ITS ---
PROCEDURE INFORMATION: Exam: XR Chest Exam date and time: 09/02/2023 7:30 AM Age: 68 years old Clinical indication: Pain; Chest pressure; Additional info: Cp TECHNIQUE: Imaging protocol: Radiologic exam of the chest. Views: 1 view. COMPARISON: CR (CHEST, ) 12/23/2022 8:17 AM FINDINGS: Lungs: Unremarkable. No consolidation. Pleural spaces: Unremarkable. No pleural effusion. No pneumothorax. Heart/Mediastinum: The heart size is not well assessed. Bones/joints: Unremarkable. XR/XR chest 1V portable [id number] IMPRESSION: No evidence of acute pulmonary process.
--- NOTE | 2023-09-02 07:19 | ECG_ITS ---
[facility] Test Date: 2023-09-02 Pat Name: Ethan Hardy Department: Room: Gender: Male Insurance Billing Clerk: : [id number] Requested By: Zehra Phan Order Number: [id number] Lalita MD: Edmond Chopra M.D. Measurements Intervals [place] Rate: 123 P: 0 WI: 0 QRS: 31 QRSD: 99 T: 56 QT: 356 QTc: 511 Interpretive Statements ATRIAL FIBRILLATION WITH RAPID VENTRICULAR RESPONSE Compared to ECG 03/02/2023 14:12:20 Aberrant conduction of supraventricular beat(s) no longer present Ventricular premature complex(es) no longer present Electronically Signed On 09-02-2023 10:58:19 IV THERAPY NURSE by Edmond Chopra M.D. [email or web address]/[id number] [email or web address]
--- NOTE | 2023-09-02 07:21 | ED_ITS ---
HPI - Chest Pain 2 General: Chief Complaint: Chest Pain Stated Complaint: CHEST PAIN Time Seen by Provider: 09/02/23 07:15 Source: patient and EMS Mode of arrival: EMS Limitations: no limitations History of Present Illness: 68-year-old male states he was having a dream where he was rowing states in the gym his heart rate had elevated knee and did not feel well he does have a history of A-fib he states that he woke up that he was having palpitations folic his heart was racing causing some chest discomfort as well. He is in A-fib with RVR here she has a history of he takes Cardizem metoprolol at home states that he has these pains with his A-fib in the past denies any dyspnea denies any nausea or diaphoresis. Associated symptoms: Reports palpitations; Deny abdominal pain, dyspnea, fever(s), nausea or vomiting Review of Systems 2 Const: Denies: fever(s), chills, body aches or change in appetite Eyes: Denies: blurry vision or eye discomfort ENMT: Denies: throat pain or dental pain Card: Reports: chest pain, palpitations and irregular heart rhythm Resp: Denies: dyspnea GI: Denies: abdominal pain, nausea, vomiting or diarrhea Musc: Denies: neck pain or back pain Skin/Breast: Denies: rash Neuro: Denies: headache(s) PFSH ED 2 PFSH: Medical History B12 deficiency Proctocolitis Urinary tract infection Thrombocytopenia Atrial fibrillation Elevated digoxin level BPH (benign prostatic hyperplasia) Community acquired pneumonia High anion gap metabolic acidosis Hypotension Atrial fibrillation and flutter Macrocytosis Intractable nausea and vomiting Hypotension Hypomagnesemia Hypokalemia Acute kidney injury Carotid artery disease Right carotid is occluded Osteoarthritis of right knee Atrial fibrillation Dysuria Urinary hesitancy BPH loc w urin obs/LUTS Osteoarthritis of right knee Alcoholism Carotid artery stenosis without cerebral infarction Acute blood loss anemia Cardiomyopathy Echocardiogram 08/21 EF 45%, global wall motion abnormality Systolic heart failure Korsakoff syndrome Wernicke encephalopathy syndrome Metabolic encephalopathy Basicervical fracture of neck of left femur Anemia Alcohol abuse BPH loc w urin obs/LUTS Elevated PSA Benign essential hypertension with target blood pressure below 140/90 Premature ventricular contractions Somnolence, daytime Abnormal nuclear stress test Mixed hyperlipidemia Intermittent palpitations Clostridium difficile diarrhea Palpitations Intestinal malrotation Nausea vomiting and diarrhea Hypertension Surgical History Knee joint replacement status Status post right knee replacement History of tonsillectomy and adenoidectomy S/P carotid endarterectomy History of bariatric surgery Gastric sleeve ([place]) History of right hip replacement History of left knee surgery History of ventral hernia repair x 2, supraumbilical, second time with mesh Family History Sister Clotting disorder Father , at age 92 CAD (coronary artery disease) Grandmother Dementia Mother , at age 78 Lung disease Hip fracture Social History Smoking and tobacco/nicotine status: never used tobacco/nicotine Alcohol intake: current Alcohol intake frequency: 3 or more drinks per day Alcohol type: hard liquor Housing: House Marital status: Current occupational status: retired Physical Exam 2 Const: COMMON NORMALS: no acute distress, patient oriented x3 and healthy appearing HENMT: COMMON NORMALS: normocephalic and atraumatic HEAD & SCALP: n ormocephalic and atraumatic Neck/C-Spine: COMMON NORMALS: full ROM and supple Chest: COMMONS NORMALS: normal inspection of the chest Resp: COMMON NORMALS: normal respiratory effort, No retractions, No use of accessory muscles and clear to auscultation bilaterally AUSCULTATION: clear to auscultation bilaterally Cardio: COMMON NORMALS: No murmurs present (Cardio) RATE: tachycardic R HYTHM: abnormal rhythm irregularly irregular GI: COMMON NORMALS: Normal to inspection, nondistended, normoactive bowel sounds present, Soft to palpation, non-tender and no masses PALPATION: Yes Soft to palpation Extremity: COMMON NORMALS: normal to inspection and full ROM Neuro: COMMON NORMALS: patient oriented x3, moves all extremities and no focal motor deficits Psych: COMMON NORMALS: mental status grossly normal, Normal thought process present and cooperative THOUGHT PROCESS: Normal thought process present Skin: COMMON NORMALS: no rashes or lesions noted and no wounds GENERAL SKIN EXAM: no rashes or lesions noted Course 2 Vital Signs: Vital signs: Vital Signs Temperature 98.8 F 09/02/23 07:15 Pulse Rate 82 09/02/23 10:00 Respiratory Rate 18 09/02/23 08:46 Blood Pressure 124/84 09/02/23 10:00 Pulse Oximetry 96 09/02/23 10:00 Oxygen Delivery Me thod Room Air 09/02/23 10:00 MDM - Chest Pain Medical Decision Making Patient presents with A-fib with RVR his heart rates much improved is in the 80s troponins are negative he feels improved no signs of ACS or PE he is to follow- up 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 Medical Records I reviewed the patient's medical records. Lab Data I reviewed the patient's lab results. 09/02/23 07:25 09/02/23 07:25 Radiology Impressions Chest X-Ray 09/02/23 07:16 IMPRESSION: No evidence of acute pulmonary process. Laboratory Results WBC 6.89 10^3/uL (3.29-11.43) 09/02/23 07:25 RBC 3.60 10^6/uL (3.85-5.65) L 09/02/23 07:25 Hgb 13.00 g/dL (11.27-16.99) 09/02/23 07:25 Hct 39.5 % (37-53) 09/02/23 07:25 MCV 109.7 fl (82-101) H 09/02/23 07:25 MCH 36.1 pg (27-33) H 09/02/23 07:25 MCHC 32.9 g/dL (30-55) 09/02/23 07:25 RDW 14.3 % (12.1-15.1) 09/02/23 07:25 Plt Count 98 10^3/cmm (157-399) L 09/02/23 07:25 MPV 11.0 fL (7.4-10.4) H 09/02/23 07:25 Neut % (Auto) 79.2 % 09/02/23 07:25 Lymph % (Auto) 5.5 % 09/02/23 07:25 [place] % (Auto) 13.4 % 09/02/23 07:25 Eos % (Auto) 1.0 % 09/02/23 07:25 Baso % (Auto) 0.3 % 09/02/23 07:25 Neut # (Auto) 5.46 10^3/uL (1.8-7.7) 09/02/23 07:25 Lymph # (Auto) 0.4 10^3/uL (0.8-4.8) L 09/02/23 07:25 [place] # (Auto) 0.9 10^3/uL (0.2-0.9) 09/02/23 07:25 Eos # (Auto) 0.1 10^3/uL (0.0-0.8) 09/02/23 07:25 Baso # (Auto) 0.0 10^3/uL (0.0-0.1) 09/02/23 07:25 Nucleated RBC % (auto) 0 % 09/02/23 07: Nucleated RBCs # 0.0 /100WBC 09/02/23 07:25 PT 14.70 SECONDS (12.1-14.9) 09/02/23 07:25 INR 1.11 (0.8-1.2) 09/02/23 07:25 Sodium 141 mmol/L (136-145) 09/02/23 07:25 Potassium 4.5 mmol/L (3.5-5.1) 09/02/23 07:25 Chloride 104 mmol/L (98-107) 09/02/23 07:25 Carbon Dioxide 22 mmol/L (22-29) 09/02/23 07:25 Anion Gap 19.5 (5-19) H 09/02/23 07:25 BUN 14 mg/dL (8-23) 09/02/23 07:25 Creatinine 0.9 mg/dL (0.7-1.2) 09/02/23 07:25 GFR Calculation 83.7 mL/min (90-130) L 09/02/23 07:25 Glucose 118 mg/dL (65-115) H 09/02/23 07:25 Calculated Osmolality 294 mOsm/kg (285-295) 09/02/23 07:25 Calcium 8.8 mg/dL (8.5-10.5) 09/02/23 07:25 Total Bilirubin 2.4 mg/dL (0.15-1.2) H 09/02/23 07:25 AST 23 U/L (0-40) 09/02/23 07:25 ALT 14 U/L (0-41) 09/02/23 07:25 Alkaline Phosphatase 74 U/L (40-130) 09/02/23 07:25 Troponin T Baseline 12 ng/L (0-15) 09/02/23 07:25 Troponin T 120 Minute 10.22 ng/L (0-15) 09/02/23 09:28 Delta Troponin T -1.78 ABS# (0-10) L 09/02/23 09:28 Total Protein 5.9 g/dL (6.6-8.7) L 09/02/23 07:25 Albumin 3.8 g/dL (3.5-5.2) 09/02/23 07:25 Globulin 2.1 g/dL (1.3-4.6) 09/02/23 07:25 Lipase 14 U/L (13-60) 09/02/23 07:25 All radiology interpretation(s) finalized by discharge EKG Data EKG 1: I personally reviewed and interpreted this EKG as follows: EKG interpretation date: 09/02/23 EKG interpretation time: 07:19 Interpretation: afib with rvr hr [address] elevation qrs 99 qtc 429 Discharge Plan Discharge Patient Disposition: Home Clinical Impression: Atrial fibrillation with RVR Condition: Stable Prescriptions: No Action tamsulosin 0.4 mg Capsule 0.4 mg PO BID 30 Days Qty: 60 3RF Centrum 18-400 mg-mcg Tablet 1 tab PO DAILY linezolid 600 mg Tablet 600 mg PO Q12H Qty: 10 0RF pantoprazole 40 mg Tablet,Delayed Release (Dr/Ec) 40 mg PO DAILY Qty: 30 0RF finasteride 5 mg Tablet 5 mg PO DAILY Qty: 30 0RF Vitamin B-1 (mononitrate) 100 mg Tablet 100 mg PO DAILY Qty: 30 0RF Cardizem CD 120 mg capsule,extended release 24hr 120 mg PO DAILY Qty: 30 0RF metoprolol tartrate 50 mg tablet 75 mg PO BIDWM Qty: 60 3RF Discharge Orders: Discharge ED (Routine); Ordered 09/02/23 Ordered By: Zehra Phan Referrals: Mallika Ceja MD [Primary Care Provider] - 1-3 days Discharge Diet: Advance as tolerated Discharge Activity: Resume usual activity Patient Instructions: A-fib (Atrial Fibrillation) (ED) Coding Level of Care Code ED [employer] [facility]
[2023-09-02 07:35] LABS: Basophils % 0.3 %; Eosinophils # 0.1 10^3/uL (0.0-0.8); Hematocrit 39.5 % (37-53); Lymphocytes # 0.4 10^3/uL (0.8-4.8); Lymphocytes % 5.5 %; Mean Corpuscular HGB Conc 32.9 g/dL (30-55); Mean Corpuscular Hemoglobin 36.1 pg (27-33); Mean Corpuscular Volume 109.7 fl (82-101); Monocytes # 0.9 10^3/uL (0.2-0.9); Monocytes % 13.4 %; Neutrophils # 5.46 10^3/uL (1.8-7.7); Neutrophils % 79.2 %; Nucleated Red Blood Cells % 0 %; Platelet Count 98 10^3/cmm (157-399); Red Cell Distribution Width 14.3 % (12.1-15.1); White Blood Count 6.89 10^3/uL (3.29-11.43)
[2023-09-02] MEDS: sodium chloride 0.9% 1,000 ML 999 ML IV (07:38)
[2023-09-02] MEDS: dilTIAZem 5 mg/mL SDV 5 mL 10 MG IVP (07:38)
[2023-09-02 07:51] LABS: INR 1.11 (0.8-1.2)
[2023-09-02 08:02] LABS: Troponin(5th) Baseline 12 ng/L (0-15)
[2023-09-02 08:03] LABS: Alanine Aminotransferase 14 U/L (0-41); Albumin Level 3.8 g/dL (3.5-5.2); Alkaline Phosphatase 74 U/L (40-130); Anion Gap 19.5 (5-19); Aspartate Amino Transferase 23 U/L (0-40); Blood Urea Nitrogen 14 mg/dL (8-23); Calcium 8.8 mg/dL (8.5-10.5); Carbon Dioxide 22 mmol/L (22-29); Chloride 104 mmol/L (98-107); Globulin 2.1 g/dL (1.3-4.6); Glomerular Filtration Rate 83.7 mL/min (90-130); Glucose 118 mg/dL (65-115); Lipase 14 U/L (13-60); Osmolality Calculated 294 mOsm/kg (285-295); Potassium 4.5 mmol/L (3.5-5.1); Sodium 141 mmol/L (136-145); Total Bilirubin 2.4 mg/dL (0.15-1.2); Total Protein 5.9 g/dL (6.6-8.7)
[2023-09-02 08:46] VITALS: BP 118/96; PULSE 88; RESP 18; O2SAT 97
[2023-09-02 10:00] VITALS: BP 124/84; PULSE 82; O2SAT 96
[2023-09-02 10:00] LABS: Troponin 5 2HR 10.22 ng/L (0-15)
[2023-09-02 10:02] LABS: Troponin 5 2HR Delta -1.78 ABS# (0-10)
== END 2023-09-02 10:21 | disposition home or self-care (01) ==
PROVIDERS: Emergency Provider Emergency Medicine; PCP Family Medicine
DX: I48.20 Chronic atrial fibrillation, unspecified (principal); I11.0 Hypertensive heart disease with heart failure; I50.20 Unspecified systolic (congestive) heart failure; I43 Cardiomyopathy in diseases classified elsewhere; E78.2 Mixed hyperlipidemia
CPT/HCPCS: 36415; 71045; 80053; 83690; 84484; 85025; 85610; 93005; 96374; 99285; J3490; J7030

== ENCOUNTER 2024-01-25 10:54 | Emergency (ER) | payer MEDICARE, SELFPAY ==
[2024-01-25] VITALS (8 sets, daily range): BP systolic 123–166; BP diastolic 83–103; PULSE 82; RESP 18; TEMP 36.8; O2SAT 86–100
--- NOTE | 2024-01-25 11:07 | XR_ITS ---
WS: [id number] Exam: XR chest 1V portable [id number] Date/Time of Exam: 01/25/2024 11:19 AM Reason For Exam: weakness Comparison 09/02/2023. The lungs are fully expanded. No acute infiltrates. Mild cardiac enlargement. No pleural effusions. B juliana structures are intact. XR/XR chest 1V portable [id number] IMPRESSION: 1. Mild cardiac enlargement. No acute process.
--- NOTE | 2024-01-25 11:08 | W.ED.WEAKNES ---
HPI - Weakness General: Chief complaint: Weakness Stated complaint: weakness/UTI Time Seen by Provider: 01/25/24 10:56 History of Present Illness: 68-year-old man with a history of A-fib, hypertension, alcohol abuse, who presents to the emergency room with weakness and urinary symptoms. He says this is all been going on for a very long time but he feels extra bad today. Nothing focal just feeling weak and having may be some malaise. He does complain of some difficulty urinating that has become worse recently. No chest pain. No altered mental status. No focal motor deficits. No fevers. No abdominal pain. No nausea or vomiting Review of Systems Narrative: Constitutional symptoms: Negative except as documented in HPI. Skin symptoms: Negative except as documented in HPI. Eye symptoms: Negative except as documented in HPI. ENMT symptoms: Negative except as documented in HPI. Respiratory symptoms: Negative except as documented in HPI. Cardiovascular symptoms: Negative except as documented in HPI. Gastrointestinal symptoms: Negative except as documented in HPI. Genitourinary symptoms: Negative except as documented in HPI. Musculoskeletal symptoms: Negative except as documented in HPI. Neurologic symptoms: Negative except as documented in HPI. Psychiatric symptoms: Negative except as documented in HPI. Endocrine symptoms: Negative except as documented in HPI. [facility] ED PFSH: Medical History B12 deficiency Proctocolitis Urinary tract infection Thrombocytopenia Atrial fibrillation Elevated digoxin level BPH (benign prostatic hyperplasia) Community acquired pneumonia High anion gap metabolic acidosis Hypotension Atrial fibrillation and flutter Macrocytosis Intractable nausea and vomiting Hypotension Hypomagnesemia Hypokalemia Acute kidney injury Carotid artery disease Right carotid is occluded Osteoarthritis of right knee Atrial fibrillation Dysuria Urinary hesitancy BPH loc w urin obs/LUTS Osteoarthritis of right knee Alcoholism Carotid artery stenosis without cerebral infarction Acute blood loss anemia Cardiomyopathy Echocardiogram 08/21 EF 45%, global wall motion abnormality Systolic heart failure Korsakoff syndrome Wernicke encephalopathy syndrome Metabolic encephalopathy Basicervical fracture of neck of left femur Anemia Alcohol abuse BPH loc w urin obs/LUTS Elevated PSA Benign essential hypertension with target blood pressure below 140/90 Premature ventricular contractions Somnolence, daytime Abnormal nuclear stress test Mixed hyperlipidemia Intermittent palpitations Clostridium difficile diarrhea Palpitations Intestinal malrotation Nausea vomiting and diarrhea Hypertension Surgical History Knee joint replacement status Status post right knee replacement History of tonsillectomy and adenoidectomy S/P carotid endarterectomy History of bariatric surgery Gastric sleeve ([place]) History of right hip replacement History of left knee surgery History of ventral hernia repair x 2, supraumbilical, second time with mesh Family History Sister Clotting disorder Father , at age 92 CAD (coronary artery disease) Grandmother Dementia Mother , at age 78 Lung disease Hip fracture Social History Smoking and tobacco/nicotine status: never used tobacco/nicotine Alcohol intake: current Alcohol intake frequency: 3 or more drinks per day Alcohol type: hard liquor Housing: House Marital status: Current occupational status: retired Physical Exam Narrative: EXAM NARRATIVE: General: Alert, no acute distress. Skin: Warm, dry. Head: Normocephalic, atraumatic. Neck: Supple, trachea midline. Eye: Extraocular movements are intact. Ears, nose, mouth and throat: Tacky oral mucosa Cardiovascular: Regular, Normal peripheral perfusion. Respiratory: Lungs are clear to auscultation, respirations are non-labored, breath sounds are equal, Symmetrical chest wall expansion. Gastrointestinal: Soft, Nontender, Non distended Musculoskeletal: Normal ROM, no deformity. Neurological: Alert and oriented, No focal neurological deficit observed. Psychiatric: Cooperative, appropriate mood & affect. Course Vital Signs: Vital signs: Vital Signs Temperature 98.3 F 01/25/24 11:00 Pulse Rate 82 01/25/24 11:00 Respiratory Rate 18 01/25/24 11:00 Blood Pressure 133/102 01/25/24 11:28 Pulse Oximetry 100 01/25/24 11:28 Oxygen Delivery Me thod Room Air 01/25/24 11:00 MDM - Weakness Medical Decision Making Medical decision making: Differential diagnosis for patient presenting with generalized weakness including but not limited to and based on the above HPI, review of systems and physical exam: Sepsis. Dehydration. Renal failure. Electrolyte abnormalities. Anemia. Congestive heart failure. Hypotension. Coronary syndrome. Hepatitis. Cirrhosis. Infections such as pneumonia, urinary tract infection, [place]ne illness, Cellulitis, Viral infections including influenza and Covid-19. Workup: labwork and lab/exam driven imaging ordered to evaluate, rule in and rule out above pathologies. EKG: Time 1114. Rate 85. Atrial fibrillation with controlled rate, No ST-T changes, no ectopy, This was reviewed and interpreted by myself the ER physician at 1117. Chest x-ray: Mild cardiomegaly. No acute process. No infiltrate. No pneumothorax. This was reviewed and interpreted by myself the ER physician. Lab Review: Laboratory results were reviewed and interpreted by myself the emergency room physician. No leukocytosis. White count is 5. No anemia. Hemoglobin is 14. No renal failure. BUN and creatinine are 11 and 0.8. Urine does appear infected. I reviewed the patient's medical record. Reexamination: Patient remained stable. No increased work of breathing. No altered mental status. No focal motor deficits. Assessment and plan: Urine tract infection Dehydration ?Normal saline bolus in the emergency room. IV Rocephin in the emergency room. - Discharged home - Discussed findings and plan with patient. Answered any questions. - All laboratory values were reviewed and interpreted personally by myself, the ER physician - All imaging was reviewed and interpreted personally by myself, the ER physician. - Evaluation and treatment of this problem were appropriate in the emergency setting Lab Data 01/25/24 11:25 01/25/24 11:25 Radiology Impressions Chest X-Ray 01/25/24 11:07 IMPRESSION: 1. Mild cardiac enlargement. No acute process. Laboratory Results WBC 4.98 10^3/uL (3.29-11.43) 01/25/24 11:25 RBC 4.12 10^6/uL (3.85-5.65) 01/25/24 11:25 Hgb 14.70 g/dL (11.27-16.99) 01/25/24 11:25 Hct 43.4 % (37-53) 01/25/24 11:25 MCV 105.3 fl (82-101) H 01/25/24 11:25 MCH 35.7 pg (27-33) H 01/25/24 11:25 MCHC 33.9 g/dL (30-55) 01/25/24 11:25 RDW 14.4 % (12.1-15.1) 01/25/24 11:25 Plt Count 112 10^3/cmm (157-399) L 01/25/24 11:25 MPV 10.9 fL (7.4-10.4) H 01/25/24 11:25 Neut % (Auto) 74.9 % 01/25/24 11:25 Lymph % (Auto) 9.0 % 01/25/24 11:25 [place] % (Auto) 13.5 % 01/25/24 11:25 Eos % (Auto) 1.6 % 01/25/24 11:25 Baso % (Auto) 0.6 % 01/25/24 11:25 Neut # (Auto) 3.73 10^3/uL (1.8-7.7) 01/25/24 11:25 Lymph # (Auto) 0.5 10^3/uL (0.8-4.8) L 01/25/24 11:25 [place] # (Auto) 0.7 10^3/uL (0.2-0.9) 01/25/24 11:25 Eos # (Auto) 0.1 10^3/uL (0.0-0.8) 01/25/24 11:25 Baso # (Auto) 0.0 10^3/uL (0.0-0.1) 01/25/24 11:25 Nucleated RBC % (auto) 0 % 01/25/24 11:25 Nucleated RBCs # 0.0 /100WBC 01/25/24 11:25 Sodium 144 mmol/L (136-145) 01/25/24 11:25 Potassium 3.7 mmol/L (3.5-5.1) 01/25/24 11:25 Chloride 102 mmol/L (98-107) 01/25/24 11:25 Carbon Dioxide 21 mmol/L (22-29) L 01/25/24 11:25 Anion Gap 24.7 (5-19) H 01/25/24 11:25 BUN 11 mg/dL (8-23) 01/25/24 11:25 Creatinine 0.8 mg/dL (0.7-1.2) 01/25/24 11:25 GFR Calculation 95.8 mL/min (90-130) 01/25/24 11:25 Glucose 74 mg/dL (65-115) 01/25/24 11:25 Calculated Osmolality 296 mOsm/kg (285-295) H 01/25/24 11:25 Lactic Acid 3.6 mmol/L (0.5-2.2) H 01/25/24 11:25 Calcium 8.6 mg/dL (8.5-10.5) 01/25/24 11:25 Total Bilirubin 1.6 mg/dL (0.15-1.2) H 01/25/24 11:25 AST 58 U/L (0-40) H 01/25/24 11:25 ALT 25 U/L (0-41) 01/25/24 11:25 Alkaline Phosphatase 85 U/L (40-130) 01/25/24 11:25 C-Reactive Protein 6.8 mg/L (0.0-4.9) H 01/25/24 11:25 Total Protein 6.9 g/dL (6.6-8.7) 01/25/24 11:25 Albumin 4.0 g/dL (3.5-5.2) 01/25/24 11:25 Globulin 2.9 g/dL (1.3-4.6) 01/25/24 11:25 Urine Color Yellow (Yellow) 01/25/24 13:09 Urine Appearance Cloudy (CLEAR) A 01/25/24 13:09 Urine pH 7 (5-7) 01/25/24 13:09 Ur Specific [place] 1.010 (1.005-1.030) 01/25/24 13:09 Urine Protein Neg (Negative) 01/25/24 13:09 Urine Glucose (UA) Norm (Normal) 01/25/24 13:09 Urine Ketones 1+ (Negative) H 01/25/24 13:09 Urine Blood Neg (Negative) 01/25/24 13:09 Urine Nitrate Positive (Negative) H 01/25/24 13:09 Urine Bilirubin Neg (Negative) 01/25/24 13:09 Urine Urobilinogen 4 mg/dL (Negative) H 01/25/24 13:09 Ur Leukocyte Esterase 2+ (Negative) H 01/25/24 13:09 Urine RBC 0-4 /hpf (0-2) H 01/25/24 13:09 Urine WBC 5-10 /hpf (0-5) H 01/25/24 13:09 Ur Squamous Epith Cells 0-4 /hpf (0-5) H 01/25/24 13:09 Amorphous Sediment Not Reportable 01/25/24 13:09 Urine Bacteria 2+ /hpf (NONE) H 01/25/24 13:09 Urine Mucus 1+ /hpf 01/25/24 13:09 All radiology interpretation(s) finalized by discharge Discharge Plan Discharge Patient Disposition: Home Clinical Impression: Dehydration Urinary tract infection Qualifiers: Urinary tract infection type: acute cystitis Hematuria presence: without hematuria Qualified Code(s): N30.00 - Acute cystitis without hematuria Condition: Stable Prescriptions: New cefdinir 300 mg capsule 300 mg PO BID 7 Days Qty: 14 0RF No Action tamsulosin 0.4 mg Capsule 0.4 mg PO BID 30 Days Qty: 60 3RF Centrum 18-400 mg-mcg Tablet 1 tab PO DAILY finasteride 5 mg Tablet 5 mg PO DAILY Qty: 30 0RF thiamine mononitrate (vit B1) [Vitamin B-1 (mononitrate)] 100 mg Tablet 100 mg PO DAILY Qty: 30 0RF diltiazem HCl [Cardizem CD] 120 mg capsule,extended release 24hr 120 mg PO DAILY Qty: 30 0RF metoprolol tartrate 50 mg tablet 75 mg PO BIDWM Qty: 60 3RF magnesium oxide 400 mg (241.3 mg magnesium) tablet 400 mg PO DAILY pantoprazole 40 mg tablet,delayed release (DR/EC) 40 mg PO QPM Discharge Orders: Discharge ED (Routine); Ordered 01/25/24 Ordered By: Rochelle Koch Referrals: Mallika Ceja MD [Primary Care Provider] - Discharge Diet: Usual diet Discharge Activity: Increase activity as tolerated Patient Instructions: Urinary Tract Infection in Older Adults (ED) Activity Restrictions/Additional Instructions: Thank you for choosing [facility] for your healthcare needs today. Please realize this is an emergency room and that we are providing you with a medical screening exam and this may not be complete and all inclusive of all the testing and or work up that you may need to determine your ailment or severity of your illness. You have been screened and evaluated and felt safe for discharge. Health conditions do change or evolve sometimes and as such it is important that you follow up with your Primary Doctor to be re checked, 3-5 days is a general good time frame for follow up. You are always welcome to return to the ED for re assessment if your symptoms are worsening or you have new concerns Coding Level of Care Code ED [employer] for [facility]
--- NOTE | 2024-01-25 11:14 | ECG_ITS ---
[facility] Test Date: 2024-01-25 Pat Name: Ethan Hardy Department: Room: Gender: Male [employer]: : 1955 Requested By: Rochelle Cali Order Number: [id number] Lalita MD: Navneet Huang M.D. Measurements Intervals [place] Rate: 85 P: 0 [place]: 0 QRS: 45 QRSD: 106 T: 29 QT: 408 QTc: 486 Interpretive Statements ATRIAL FIBRILLATION ABNORMAL RHYTHM ECG Compared to ECG 09/02/2023 07:19:25 No significant changes Electronically Signed On 01-25-2024 20:39:17 CDT by Navneet Huang M.D. [email or web address]
[2024-01-25 11:56] LABS: Basophils % 0.6 %; Eosinophils # 0.1 10^3/uL (0.0-0.8); Eosinophils % 1.6 %; Hematocrit 43.4 % (37-53); Lymphocytes # 0.5 10^3/uL (0.8-4.8); Mean Corpuscular HGB Conc 33.9 g/dL (30-55); Mean Corpuscular Hemoglobin 35.7 pg (27-33); Mean Corpuscular Volume 105.3 fl (82-101); Mean Platelet Volume 10.9 fL (7.4-10.4); Monocytes # 0.7 10^3/uL (0.2-0.9); Monocytes % 13.5 %; Neutrophils # 3.73 10^3/uL (1.8-7.7); Neutrophils % 74.9 %; Nucleated Red Blood Cells % 0 %; Platelet Count 112 10^3/cmm (157-399); Red Blood Count 4.12 10^6/uL (3.85-5.65); Red Cell Distribution Width 14.4 % (12.1-15.1); White Blood Count 4.98 10^3/uL (3.29-11.43)
[2024-01-25 12:19] LABS: Alanine Aminotransferase 25 U/L (0-41); Alkaline Phosphatase 85 U/L (40-130); Anion Gap 24.7 (5-19); Aspartate Amino Transferase 58 U/L (0-40); Blood Urea Nitrogen 11 mg/dL (8-23); C Reactive Protein 6.8 mg/L (0.0-4.9); Calcium 8.6 mg/dL (8.5-10.5); Carbon Dioxide 21 mmol/L (22-29); Chloride 102 mmol/L (98-107); Globulin 2.9 g/dL (1.3-4.6); Glomerular Filtration Rate 95.8 mL/min (90-130); Glucose 74 mg/dL (65-115); Osmolality Calculated 296 mOsm/kg (285-295); Potassium 3.7 mmol/L (3.5-5.1); Sodium 144 mmol/L (136-145); Total Bilirubin 1.6 mg/dL (0.15-1.2); Total Protein 6.9 g/dL (6.6-8.7)
[2024-01-25 12:21] LABS: Lactic Sepsis W/Reflex 3.6 mmol/L (0.5-2.2)
[2024-01-25 13:22] LABS: Reflex Lactate Order REFLEX LACTIC ORDERD
[2024-01-25 13:42] LABS: Add Urine Culture? Yes; Bacteria Urine 2+ /hpf; Bilirubin Urine Neg (Negative); Blood Urine Neg (Negative); Glucose Urine UA Norm (Normal); Ketones Urine 1+ (Negative); Leukocyte Esterase Urine 2+ (Negative); Mucus Urine 1+ /hpf; Nitrate Urine Positive (Negative); Protein Urine Neg (Negative); RBC Urine 0-4 /hpf (0-2); Squamous Epithelial Cell Urine 0-4 /hpf (0-5); Urine Appearance Cloudy (CLEAR); Urine Color Yellow (Yellow); Urobilinogen Urine 4 mg/dL (Negative); pH Urine 7 (5-7)
[2024-01-25] MEDS: sodium chloride 0.9% 500 ML 999 ML IV (13:49)
[2024-01-25] MEDS: sodium chloride 0.9% 1,000 ML 999 ML IV (13:49)
[2024-01-25] MEDS: cefTRIAXone 1,000 MG in sodium chloride 0.9% (plus) 50 ML 100 MG IV (14:17)
[2024-01-25 14:45] LABS: Lactic Acid level (Lactate) 3.2 mmol/L (0.5-2.2)
== END 2024-01-25 16:03 | disposition home or self-care (01) ==
PROVIDERS: Emergency Provider Emergency Medicine; PCP Family Medicine
DX: N30.00 Acute cystitis without hematuria (principal); E86.0 Dehydration; I48.91 Unspecified atrial fibrillation; I11.0 Hypertensive heart disease with heart failure; I50.20 Unspecified systolic (congestive) heart failure; I43 Cardiomyopathy in diseases classified elsewhere; E78.2 Mixed hyperlipidemia; Z87.440 Personal history of urinary (tract) infections
CPT/HCPCS: 36415; 71045; 80053; 81001; 83605; 85025; 86140; 87040; 87077; 87086; 87186; 93005; 96361; 96365; 99285; J0696; J7030; J7040